=== PATIENT | male | born 1980 | race Native Hawaiian/Other Pacific Islander ===

== ENCOUNTER 2020-04-13 20:22 | Observation (INO) | payer MEDICAID, SELFPAY ==
--- NOTE | 2020-04-13 | XR_ITS ---
EXAMINATION: XR HAND, RIGHT CLINICAL INFORMATION: Right hand pain COMPARISON: None TECHNIQUE: 3 views of the right hand. FINDINGS: Osseous alignment is anatomic. No acute fracture is seen. Mild soft tissue swelling is suspected. XR/XR hand wrist RT IMPRESSION: No acute osseous findings.
[2020-04-13 20:36] VITALS: BP 133/89; BP 152/79; PULSE 86; PULSE 88; RESP 16; TEMP 37; O2SAT 95; O2SAT 97; BMI 24.9
--- NOTE | 2020-04-13 20:50 | PC.NURSE ---
at bedside for primary eval. Per MD to continue Solumedrol infusion @ 1000 mg/hr. Plan to obtain labs.
--- NOTE | 2020-04-13 20:51 | ED.GENADULT ---
HPI - General Adult General Chief complaint: General Medical Stated complaint: MS EXACERBATION Time Seen by Provider: 04/13/20 20:50 Source: patient and old records reviewed Mode of arrival: EMS Limitations: physical limitation History of Present Illness HPI narrative: Patient's history of multiple sclerosis for long time patient does not know what medication he is taking for MS at this time sent from [facility] ER for further workup and treatment at our hospital as his neurologist is at [place]. According to patient, patient woke up today with pain in the right arm patient denies any weakness says the pain goes from the right hand to the whole right side constant pain does not increase when he bends his neck no significant change in weakness. Provider at [facility] spoke to neurologist and started on Solu-Medrol 1000 mg for possible flare-up of MS. Also patient has suprapubic Mcghee catheter and the urine was slightly infected patient currently on Tecfidera 240 mg twice daily for MS per senior care records Onset (ago): hour(s) (10) Related Data Allergies Allergy/AdvReac Type Severity Reaction Status Date / Time bee pollen [BEE STINGS] Allergy Unknown SWELLING Unverified 11/30/19 15:18 bees, hornets, wasps Allergy Unknown anaphylaxis Uncoded 01/20/16 00:00 Review of Systems Review of Systems: Constitutional : No Weight loss, No Fever, No Chills ENT/Mouth : No sore throat, No Rhinorrhea Eyes: No Eye Pain, No Swelling Cardiovascular : No Chest Pain, no palpitations Respiratory : No Cough, No Sputum, no shortness of breath Gastrointestinal : no Nausea, No Vomiting, No Diarrhea, No abdominal Pain, no black stools Genitourinary : No Dysuria, No Urinary Frequency Musculoskeletal : No joint pain, No Myalgias, No Joint Swelling Skin : No Skin Lesions, No rash Neuro : ++ Weakness, No Numbness, No Dizziness, No Headache Psych : No Anxiety/Panic, No Depression Heme/Lymph: No Bruising, No Lymphadenopathy Endocrine : No Polyuria, No Polydipsia All other systems reviewed and are negative Yes all other systems are reviewed and are negative [facility] Past Medical History Medical History Hepatitis C Multiple sclerosis Neuromyopathy Suprapubic catheter UTI (urinary tract infection) Social History Social History Advance Directives: No Advance Directives Information Provided: No Physical Exam Vital Signs: Vital Signs: Last Vital Signs Temp 97.8 F 04/13/20 23:25 Pulse 110 H 04/13/20 23:45 Resp 18 04/13/20 23:25 BP 123/102 H 04/13/20 23:25 Pulse Ox 95 04/13/20 23:25 Body Mass Index 24.9 Const: Other: Slow to speak General: no acute distress and ill appearing Nutritional Appearance: malnourished and thin Orientation/consciousness: patient oriented x3 HENMT: Head: Yes normocephalic and Yes atraumatic Ears: hearing grossly normal bilaterally General nose exam: Normal external nose present Face and sinus: Yes normal facial exam Mouth: Normal oral and palatal mucosa present Eyes: General: appearance normal, both eyes and all related structures Neck: Neck: Yes normal visual inspection and Yes no meningeal signs Chest: Chest palpation & inspection: normal inspection of the chest and normal palpation of entire chest wall Resp: Effort & Inspection: normal respiratory effort Auscultation: clear to auscultation bilaterally, no crackles, no rales and no rhonchi Cardio: Jugular venous distension: no JVD Palpation: normal PMI Rate: regular rate Heart sounds: S1 normal heart sound present and S2 normal heart sound present Peripheral pulses: Peripheral pulses 2+ throughout GI: Inspection: Yes normal to inspection Palpation (GI): Soft to palpation and nontender : General: Yes no CVA tenderness Back/Spine/Pelvis: Back: no CVA tenderness Thoracic/Lumbar Spine: thoracic and lumbar spine normal to inspection Skin: General skin exam: no rashes or lesions noted Neuro: Other: Old Left-sided weakness, contracted posture able to am moves his right hand similar to in the past with residual weakness no increase in pain when he flexes his neck decreased reflexes bilateral General: patient oriented x3 and no meningeal signs Medical Decision Making MDM Narrative Medical decision making narrative: Patient has nonspecific pain in the right hand and right side of the body unlikely MS flare up also has the suprapubic chronic indwelling catheter with UTI which is likely chronic. Will give him Rocephin IV admit for Neuro input tomorrow patient already received dose of Solu-Medrol 1000 mg by [facility] Lab Data Lab results reviewed: Yes I reviewed the patient's lab results. Result diagrams: 04/13/20 21:59 04/13/20 21:59 Labs: Lab Results 04/13/20 04/13/20 04/13/20 Range/Units 21:39 21:49 21:59 WBC 8.4 (4.8-10.8) X10*3/uL RBC 4.42 L (4.60-5.80) X10*6/uL Hgb 13.0 L (14.0-18.0) g/dl Hct 39.5 L (42-52) % MCV 89.4 (80-98) fL MCH 29.4 (27.0-33.0) pg MCHC 32.9 (31.0-36.0) g/dl RDW 11.7 (11.0-16.0) % Plt Count 251 (160-400) X10*3/uL MPV 8.9 L (9.4-12.4) fL Immature Gran % (Auto) 0.2 (0.0-0.4) % Neut % (Auto) 76.4 H (45-73) % Lymph % (Auto) 18.2 L (20-40) % [place] % (Auto) 3.5 (2-11) % Eos % (Auto) 1.3 (0-4) % Baso % (Auto) 0.4 (0-2) % Lymph # (Auto) 1.5 (1.2-4.9) X10*3/uL [place] # (Auto) 0.3 (0.1-1.2) X10*3/uL Eos # (Auto) 0.1 (0.0-0.4) X10*3/uL Baso # (Auto) 0.0 (0.0-0.2) X10*3/uL Abs Immat Gran (auto) 0.02 (0.00-0.03) X10*3/uL Absolute Neuts (auto) 6.4 (2.0-8.3) X10*3/uL Absolute Nucleated RBC 0.000 (0.0-0.012) X10*3/uL Nucleated RBC % (auto) 0.0 (0.0-0.2) /100WBC Sodium (135-145) mmol/L Potassium (3.3-5.1) mmol/L Chloride (96-108) mmol/L Carbon Dioxide (22-29) mmol/L Anion Gap (12-20) BUN (9-16) mg/dL Creatinine (0.5-1.4) mg/dL Estim Creat Clear Calc Estimated GFR Random Glucose (60-115) mg/dL Lactic Acid 1.0 (0.5-2.0) mmol/L Calcium (8.4-10.2) mg/dL Total Bilirubin (0.0-1.0) mg/dL Direct Bilirubin (0.0-0.5) mg/dL AST (5-37) U/L ALT (0-40) U/L Alkaline Phosphatase (39-117) U/L C-Reactive Protein (< or = 0.50) mg/dL Total Protein (6.5-8.0) g/dL Albumin (3.5-5.0) g/dL Urine Color YELLOW Urine Appearance HAZY Urine pH 8.0 (5.0-8.0) Ur Specific [place] 1.015 (1.005-1.025) Urine Protein TRACE (NEG-TRACE) MG/DL Urine Glucose (UA) 100 H (NEG) MG/DL Urine Ketones NEG (NEG) MG/DL Urine Blood TRACE (NEG) Urine Nitrite POS H (NEG) Ur Leukocyte Esterase 1+ H (NEG) Urine RBC 1-4 (0) /HPF Urine WBC 15-29 H (0-4) /HPF Ur Squamous Epith Cells TRACE /LPF Amorphous Sediment 2+ /LPF Urine Bacteria 3+ /LPF Granular Casts 10-14 /LPF 04/13/20 Range/Units 21:59 WBC (4.8-10.8) X10*3/uL RBC (4.60-5.80) X10*6/uL Hgb (14.0-18.0) g/dl Hct (42-52) % MCV (80-98) fL MCH (27.0-33.0) pg MCHC (31.0-36.0) g/dl RDW (11.0-16.0) % Plt Count (160-400) X10*3/uL MPV (9.4-12.4) fL Immature Gran % (Auto) (0.0-0.4) % Neut % (Auto) (45-73) % Lymph % (Auto) (20-40) % [place] % (Auto) (2-11) % Eos % (Auto) (0-4) % Baso % (Auto) (0-2) % Lymph # (Auto) (1.2-4.9) X10*3/uL [place] # (Auto) (0.1-1.2) X10*3/uL Eos # (Auto) (0.0-0.4) X10*3/uL Baso # (Auto) (0.0-0.2) X10*3/uL Abs Immat Gran (auto) (0.00-0.03) X10*3/uL Absolute Neuts (auto) (2.0-8.3) X10*3/uL Absolute Nucleated RBC (0.0-0.012) X10*3/uL Nucleated RBC % (auto) (0.0-0.2) /100WBC Sodium 142 (135-145) mmol/L Potassium 3.9 (3.3-5.1) mmol/L Chloride 105 (96-108) mmol/L Carbon Dioxide 26 (22-29) mmol/L Anion Gap 15 (12-20) BUN 20 H (9-16) mg/dL Creatinine 0.63 (0.5-1.4) mg/dL Estim Creat Clear Calc 169.3 Estimated GFR > 60 Random Glucose 104 (60-115) mg/dL Lactic Acid (0.5-2.0) mmol/L Calcium 9.0 (8.4-10.2) mg/dL Total Bilirubin 0.5 (0.0-1.0) mg/dL Direct Bilirubin 0.3 (0.0-0.5) mg/dL AST 20 (5-37) U/L ALT 33 (0-40) U/L Alkaline Phosphatase 109 (39-117) U/L C-Reactive Protein 2.79 H (< or = 0.50) mg/dL Total Protein 7.0 (6.5-8.0) g/dL Albumin 4.2 (3.5-5.0) g/dL Urine Color Urine Appearance Urine pH (5.0-8.0) Ur Specific [place] (1.005-1.025) Urine Protein (NEG-TRACE) MG/DL Urine Glucose (UA) (NEG) MG/DL Urine Ketones (NEG) MG/DL Urine Blood (NEG) Urine Nitrite (NEG) Ur Leukocyte Esterase (NEG) Urine RBC (0) /HPF Urine WBC (0-4) /HPF Ur Squamous Epith Cells /LPF Amorphous Sediment /LPF Urine Bacteria /LPF Granular Casts /LPF Discharge Plan Discharge Clinical Impression: Musculoskeletal arm pain Qualifiers: Laterality: right Qualified Code(s): M79.601 - Pain in right arm UTI (urinary tract infection) Qualifiers: Urinary tract infection type: catheter-associated UTI Indwelling urinary catheter type: cystostomy catheter Encounter type: initial encounter Qualified Code(s): T83.510A - Infection and inflammatory reaction due to cystostomy catheter, initial encounter Patient Disposition: Admitted As Inpatient
[2020-04-13] MEDS: Morphine Sulfate 4 MG/ML CARTRIDGE IVPUSH (21:54)
[2020-04-13] MEDS: cefTRIAXone sodium 1 GM in 0.9 % Sodium Chloride 50 ML IV (21:55)
[2020-04-13 22:04] LABS: MANUAL DIFF FLAG NO
[2020-04-13 22:06] LABS: Basophils Percent Auto 0.4 % (0-2); Eosinophils Absolute Auto 0.1 X10*3/uL (0.0-0.4); Eosinophils Percent Auto 1.3 % (0-4); Hematocrit 39.5 % (42-52); Imm Gran Abs Auto 0.02 X10*3/uL (0.00-0.03); Imm Gran Pct Auto 0.2 % (0.0-0.4); Lymphocytes Absolute Auto 1.5 X10*3/uL (1.2-4.9); Lymphocytes Percent Auto 18.2 % (20-40); Mean Corpuscular HGB Conc 32.9 g/dl (31.0-36.0); Mean Corpuscular Hemoglobin 29.4 pg (27.0-33.0); Mean Corpuscular Volume 89.4 fL (80-98); Mean Platelet Volume 8.9 fL (9.4-12.4); Monocytes Absolute Auto 0.3 X10*3/uL (0.1-1.2); Monocytes Percent Auto 3.5 % (2-11); Neutrophils Absolute Auto 6.4 X10*3/uL (2.0-8.3); Neutrophils Percent Auto 76.4 % (45-73); Platelet Count 251 X10*3/uL (160-400); Red Blood Count 4.42 X10*6/uL (4.60-5.80); Red Cell Distribution Width 11.7 % (11.0-16.0); White Blood Count 8.4 X10*3/uL (4.8-10.8)
--- NOTE | 2020-04-13 22:08 | PC.NURSE ---
IV established, labs and UA obtained and sent. Mcghee bag changed by technical associate. Pt medicated per MAY with Morphine for 10/10 pain and Rocephin. VSS. Pt resting in bed at this time. Pt provided with blankets and pillows for comfort. Continue to monitor.
[2020-04-13 22:09] VITALS: BP 126/81; PULSE 95; RESP 16
[2020-04-13 22:09] LABS: Glucose Urine UA 100 MG/DL (NEG); Leukocyte Esterase Urine 1+ (NEG); Nitrite Urine POS (NEG); Specific Gravity - Urine 1.015 (1.005-1.025); UACC Culture Trigger YES; Urine Blood TRACE (NEG); Urine Ketones NEG (NEG); Urine Protein TRACE MG/DL (NEG-TRACE)
[2020-04-13 22:11] LABS: Appearance Urine HAZY; Color Urine YELLOW
--- NOTE | 2020-04-13 22:31 | PC.NURSE ---
This RN contacting [facility] regarding list of medications for pt. Per RN @ [facility], pt is taking Tecfidera delayed release, 250 mg BID for MS, aware. Awaiting med list. Plan to admit.
[2020-04-13 22:34] LABS: Bacteria Urine 3+ /LPF; Squamous Epithelial Cell Urine TRACE /LPF
[2020-04-13 22:35] LABS: Amorphous Sediment Urine 2+ /LPF
[2020-04-13 22:39] LABS: Alanine Aminotransferase 33 U/L (0-40); Albumin Level 4.2 g/dL (3.5-5.0); Alkaline Phosphatase 109 U/L (39-117); Anion Gap 15 (12-20); Aspartate Amino Transferase 20 U/L (5-37); Bilirubin Direct 0.3 mg/dL (0.0-0.5); Bilirubin Total 0.5 mg/dL (0.0-1.0); Blood Urea Nitrogen 20 mg/dL (9-16); C Reactive Protein 2.79 mg/dL (< or = 0.50); Carbon Dioxide 26 mmol/L (22-29); Chloride 105 mmol/L (96-108); Creatinine Clr Calc Pharmacy 169.3; Estimated Glomerular Filt Rate > 60; Glucose Random 104 mg/dL (60-115); Potassium 3.9 mmol/L (3.3-5.1); Sodium 142 mmol/L (135-145)
[2020-04-13 23:25] VITALS: BP 123/102; PULSE 108; RESP 18; TEMP 36.6; O2SAT 95
--- NOTE | 2020-04-13 23:37 | PC.NURSE ---
This RN contacting the facility again requested a list of medications. [facility] sent a face sheet, medical history and MOLST form. Medication list not included. Per facility, they will send it again. Awaiting med list.
--- NOTE | 2020-04-13 23:44 | P.HPHOSP_ITS ---
History of Present Illness Date of Service: 04/13/20 Chief Complaint: Right arm pain 39 y/o male with significant hx of MS who presented from [facility] due suspected MS flair . Patient was sent from [place] to [facility] due to a new onset RUE pain which started today. Upon arrival patient was started with Solumedrol IV for treatment of a suspected flair and given that his neurologist works at our facility, patient was later transferred to our hospital for further evaluation. On arrival patient presents with a BP of 123/102 mmHg, HR of 108, no evidence of fever, No leukocytosis, UA positive for UTI. Patient has a judge catheter. One dose of morphine was given and Rocephin per ED. Neurologist senior front end engineer was contacted per ED who states that does not thinks this is a presentation of a MS flair at this point given there is no evidence of acute weakness/numbness but only the pain in the RUE. Recommended the patient to be observed and he will follow up in the am. Decision for admission was given to Medicine. Patient seen and examined at the bedside, laying down in bed in no acute distress. ROS as above otherwise negative. On physical exam is evident left sided residual weakness and RUE residual mild weakness with good movement and strength of the hand. No pain is evident on examination. PMHX: MS on Tecfidera BID, Psychotic disorder, Insomnia, Constipation, Peripheral neuropathy, Hep C, Seizure PSx: none Toxic habits Opioid abuse Review of Systems Constitutional: Constitutional: Reports as per HPI Musculoskeletal: Musculoskeletal: Reports other (RUE pain) [facility] Medical History (Updated 04/14/20 @ 01:01 by Kevin Jacobson MD) Hepatitis C Multiple sclerosis Neuromyopathy Suprapubic catheter UTI (urinary tract infection) Functional capacity: bed bound Social History Advance Directives: No Advance Directives Information Provided: No Meds Allergies Allergy/AdvReac Type Severity Reaction Status Date / Time bee pollen [BEE STINGS] Allergy Unknown SWELLING Unverified 11/30/19 15:18 bees, hornets, wasps Allergy Unknown anaphylaxis Uncoded 01/20/16 00:00 Home Medications Medication Instructions Recorded Confirmed Type Milk of Magnesia 150 mg PO NEEDED 04/14/20 04/14/20 History Tecfidera 240 mg PO BID 04/14/20 04/14/20 History acetaminophen 350 mg PO NEEDED 04/14/20 04/14/20 History amantadine HCl 100 mg PO BID 04/14/20 04/14/20 History amitriptyline 100 mg PO BEDTIME 04/14/20 04/14/20 History ascorbic acid (vitamin C) 500 mg PO BID 04/14/20 04/14/20 History baclofen 40 mg PO TID 04/14/20 04/14/20 History bisacodyl 10 mg GA DAILY 04/14/20 04/14/20 History cetirizine 10 mg PO DAILY 04/14/20 04/14/20 History diazepam [Valium] 5 mg PO TID PRN 04/14/20 04/14/20 History docusate sodium [Colace] 100 mg PO BID 04/14/20 04/14/20 History gabapentin 1,200 mg PO TID 04/14/20 04/14/20 History melatonin 5 mg PO BEDTIME PRN 04/14/20 04/14/20 History methadone 10 mg PO TID 04/14/20 04/14/20 History metoprolol succinate 25 mg PO DAILY 04/14/20 04/14/20 History phenytoin sodium extended 100 mg PO TID 04/14/20 04/14/20 History senna 17.2 mg PO BID 04/14/20 04/14/20 History tizanidine 8 mg PO TID 04/14/20 04/14/20 History trazodone 25 mg PO NEEDED 04/14/20 04/14/20 History Physical Exam Vital Signs and Narrative: Vital Signs: Last Vital Signs Temp 97.8 F 04/13/20 23:25 Pulse 108 H 04/13/20 23:25 Resp 18 04/13/20 23:25 BP 123/102 H 04/13/20 23:25 Pulse Ox 95 04/13/20 23:25 Body Mass Index 24.9 Const: General: cooperative, comfortable and no acute distress Orientation/consciousness: oriented to person, oriented to place and oriented to time HENMT: Head: Yes normal to inspection Eyes: General: appearance normal, both eyes and all related structures Neck: Yes normal visual inspection Chest: Chest palpation & inspection: normal inspection of the chest Resp: Effort & Inspection: normal respiratory effort Auscultation: clear to auscultation bilaterally Cardio: Jugular venous distension: no JVD Rate: regular rate Rhythm: regular rhythm Heart sounds: S1 normal heart sound present and S2 normal heart sound present Skin: General skin exam: no rashes or lesions noted Neuro: General: oriented to person, oriented to place and oriented to time Cognition (Neuro): normal cognition Motor exam (neuro): Other motor observations present (Left sided residual weakness 0/5, RUE 3/5 strength. Sensation preserved. ) Extrem: General: Yes normal to inspection Results Labs CBC and Chem 7: 04/13/20 21:59 04/13/20 21:59 Labs: Laboratory Results - last 24 hr 04/13/20 04/13/20 04/13/20 21:39 21:49 21:59 MCV 89.4 MCH 29.4 MCHC 32.9 RDW 11.7 Plt Count 251 MPV 8.9 L Immature Gran % (Auto) 0.2 Neut % (Auto) 76.4 H Lymph % (Auto) 18.2 L [place] % (Auto) 3.5 Eos % (Auto) 1.3 Baso % (Auto) 0.4 Lymph # (Auto) 1.5 [place] # (Auto) 0.3 Eos # (Auto) 0.1 Baso # (Auto) 0.0 Abs Immat Gran (auto) 0.02 Absolute Neuts (auto) 6.4 Absolute Nucleated RBC 0.000 Nucleated RBC % (auto) 0.0 Anion Gap Estim Creat Clear Calc Estimated GFR Random Glucose Lactic Acid 1.0 Calcium Total Bilirubin Direct Bilirubin AST ALT Alkaline Phosphatase C-Reactive Protein Total Protein Albumin Urine Color YELLOW Urine Appearance HAZY Urine pH 8.0 Ur Specific [place] 1.015 Urine Protein TRACE Urine Glucose (UA) 100 H Urine Ketones NEG Urine Blood TRACE Urine Nitrite POS H Ur Leukocyte Esterase 1+ H Urine RBC 1-4 Urine WBC 15-29 H Ur Squamous Epith Cells TRACE Amorphous Sediment 2+ Urine Bacteria 3+ Granular Casts 10-14 04/13/20 21:59 MCV MCH MCHC RDW Plt Count MPV Immature Gran % (Auto) Neut % (Auto) Lymph % (Auto) [place] % (Auto) Eos % (Auto) Baso % (Auto) Lymph # (Auto) [place] # (Auto) Eos # (Auto) Baso # (Auto) Abs Immat Gran (auto) Absolute Neuts (auto) Absolute Nucleated RBC Nucleated RBC % (auto) Anion Gap 15 Estim Creat Clear Calc 169.3 Estimated GFR > 60 Random Glucose 104 Lactic Acid Calcium 9.0 Total Bilirubin 0.5 Direct Bilirubin 0.3 AST 20 ALT 33 Alkaline Phosphatase 109 C-Reactive Protein 2.79 H Total Protein 7.0 Albumin 4.2 Urine Color Urine Appearance Urine pH Ur Specific [place] Urine Protein Urine Glucose (UA) Urine Ketones Urine Blood Urine Nitrite Ur Leukocyte Esterase Urine RBC Urine WBC Ur Squamous Epith Cells Amorphous Sediment Urine Bacteria Granular Casts Assessment and Plan (1) UTI (urinary tract infection): Qualifiers: Encounter type: initial encounter Indwelling urinary catheter type: cystostomy catheter Urinary tract infection type: catheter-associated UTI Qualified Code(s): T83.510A - Infection and inflammatory reaction due to cystostomy catheter, initial encounter; N39.0 - Urinary tract infection, site not specified Status: Acute Continue with Rocephin 1 g Q 24 hrs for a total duration of 3 days Follow up Ucx Voiding trial when feasible (2) Multiple sclerosis: Status: Acute Hold off on Solumedrol for now as per Neurology senior front end engineer continue with home med as ordered for MS Neurology to Follow up in the am Observation for now (3) Psychotic disorder: Status: Acute continue with amitriptiline home dose continue with amantadine home dose (4) Insomnia: Status: Acute continue with melatonin home dose continue with trazodone home dose (5) Peripheral neuropathy: Status: Acute continue with gabapentin home dose continue with baclofen home dose for muscle spasms (6) Constipation: Status: Acute continue with colace home dose conitnue with senna home dose (7) Seizure: Status: Acute
[2020-04-13 23:45] VITALS: PULSE 110
[2020-04-13] MEDS: 0.9 % Sodium Chloride 1,000 ML 999 ML IVCONT (23:48)
[2020-04-14] VITALS (12 sets, daily range): BP systolic 104–133; BP diastolic 57–75; PULSE 99–125; RESP 14–22; TEMP 36.9–37.3; O2SAT 94–96
--- NOTE | 2020-04-14 | PC.NURSE ---
XRay at bedside.
--- NOTE | 2020-04-14 00:47 | PC.NURSE ---
Med Rec completed per paperwork faxed from facility.
--- NOTE | 2020-04-14 01:51 | PC.NURSE ---
Transfer orders processed.
--- NOTE | 2020-04-14 01:55 | PC.NURSE ---
This RN contacting MD regarding Covid swab. Pt was swabbed for Covid at [facility] today and was negative. This RN discussing with Manjeet is another Covid swab here was needed prior to transport to floor. Per MD, since pt was swabbed today, no need to reswab.
[2020-04-14] MEDS: Heparin Sodium,Porcine 5,000 UNIT/ML VIAL 5000 UNIT SUBCUT ×3 (02:19→18:20)
--- NOTE | 2020-04-14 02:24 | PC.NURSE ---
Pt medicated with Heparin per LYUDMILA. Pt clean/dry at this time, repositioned onto right side. Call hidalgo within reach, continue to monitor.
[2020-04-14 06:07] LABS: MANUAL DIFF FLAG NO
[2020-04-14 06:09] LABS: Basophils Percent Auto 0.2 % (0-2); Hematocrit 40.2 % (42-52); Hemoglobin 13.8 g/dl (14.0-18.0); Imm Gran Abs Auto 0.02 X10*3/uL (0.00-0.03); Imm Gran Pct Auto 0.4 % (0.0-0.4); Lymphocytes Percent Auto 18.3 % (20-40); Mean Corpuscular HGB Conc 34.3 g/dl (31.0-36.0); Mean Corpuscular Hemoglobin 30.2 pg (27.0-33.0); Mean Platelet Volume 8.9 fL (9.4-12.4); Monocytes Absolute Auto 0.1 X10*3/uL (0.1-1.2); Monocytes Percent Auto 0.9 % (2-11); Neutrophils Absolute Auto 4.6 X10*3/uL (2.0-8.3); Neutrophils Percent Auto 80.2 % (45-73); Platelet Count 262 X10*3/uL (160-400); Red Blood Count 4.57 X10*6/uL (4.60-5.80); Red Cell Distribution Width 11.5 % (11.0-16.0); White Blood Count 5.7 X10*3/uL (4.8-10.8)
[2020-04-14] MEDS: cefTRIAXone sodium 1 GM in 0.9 % Sodium Chloride 50 ML IV (06:21)
--- NOTE | 2020-04-14 06:21 | PC.NURSE ---
Pt medicated per MAR with Rocephin. Pt noted to be flushed, skin hot to the touch, pt states I am so hot. Rectal temp noted to be 99.2 Blankets removed per pt request. Continue to monitor.
[2020-04-14 06:31] LABS: Anion Gap 15 (12-20); Blood Urea Nitrogen 14 mg/dL (9-16); Calcium 8.6 mg/dL (8.4-10.2); Carbon Dioxide 21 mmol/L (22-29); Chloride 106 mmol/L (96-108); Estimated Glomerular Filt Rate > 60; Glucose Random 154 mg/dL (60-115); Potassium 3.9 mmol/L (3.3-5.1); Sodium 138 mmol/L (135-145)
[2020-04-14] MEDS: Docusate Sodium 100 MG CAPSULE PO ×2 (09:24→21:06)
[2020-04-14] MEDS: Baclofen 20 MG TABLET 40 MG PO ×3 (09:24→21:06)
[2020-04-14] MEDS: 0.9 % Sodium Chloride Flush 3 ML SYRINGE IVFLUSH ×2 (09:24→16:33)
[2020-04-14] MEDS: amantadine HCL 100 MG CAPSULE PO ×2 (09:24→21:07)
[2020-04-14] MEDS: bisacodyL 10 MG SUPP.RECT PR (09:24)
[2020-04-14] MEDS: Ascorbic Acid 500 MG TABLET PO ×2 (09:24→21:07)
[2020-04-14] MEDS: methADONE HCl 10 MG TABLET PO ×3 (09:24→21:07)
[2020-04-14] MEDS: Gabapentin 600 MG TABLET 1200 MG PO ×3 (09:24→21:07)
[2020-04-14] MEDS: Loratadine 10 MG TABLET PO (09:24)
--- NOTE | 2020-04-14 09:52 | PC.NURSE ---
Patient awake and alert. Skin flush, warm, dry. resp even and non labored. speaking in slow, full, clear sentences. pt seen by neurologist. Pt incontinent of large amount of hard, dry stool. Care provided and linens changed, pt repositioned to [facility] side. Suprapubic catheter producing cloudy yellow urine. ST via tele. Awaiting room assignment
--- NOTE | 2020-04-14 09:53 | PM.NEUROCN ---
History of Present Illness Data of Consult Service Date: 04/14/20 Primary Care Provider: Toñito Denson MD 39 years old man with chronic it was progressive multiple sclerosis, patient of Dr. Landrum, treated with multiple medicines for spasticity and pain and an immunomodulating agent, Tecfidera. He was a resident of an institution and was brought to [facility] with new or worsening right-sided stiffness. It was not clear if he had any new hemiparesis. As that hospital did not have any Neurology, he was transferred to this hospital. After discussion with emergency room physician in [facility] a dose of Solu-Medrol was given for possible MS exacerbation. When I saw him he was being fed by a nurse. Review of Systems Review of Systems: No recent cold or PMFSH Past Medical History Medical History (Updated 04/14/20 @ 09:57 by Amie Bustillos MD) Hepatitis C Multiple sclerosis Neuromyopathy Suprapubic catheter UTI (urinary tract infection) Functional capacity: bed bound Social History Social History Advance Directives: No Advance Directives Information Provided: No Meds Allergies Allergy/AdvReac Type Severity Reaction Status Date / Time bee pollen [BEE STINGS] Allergy Unknown SWELLING Unverified 11/30/19 15:18 bees, hornets, wasps Allergy Unknown anaphylaxis Uncoded 01/20/16 00:00 Home Medications Medication Instructions Recorded Confirmed Type Milk of Magnesia 150 mg PO NEEDED 04/14/20 04/14/20 History Tecfidera 240 mg PO BID 04/14/20 04/14/20 History acetaminophen 350 mg PO NEEDED 04/14/20 04/14/20 History amantadine HCl 100 mg PO BID 04/14/20 04/14/20 History amitriptyline 100 mg PO BEDTIME 04/14/20 04/14/20 History ascorbic acid (vitamin C) 500 mg PO BID 04/14/20 04/14/20 History baclofen 40 mg PO TID 04/14/20 04/14/20 History bisacodyl 10 mg ND DAILY 04/14/20 04/14/20 History cetirizine 10 mg PO DAILY 04/14/20 04/14/20 History diazepam [Valium] 5 mg PO TID PRN 04/14/20 04/14/20 History docusate sodium [Colace] 100 mg PO BID 04/14/20 04/14/20 History gabapentin 1,200 mg PO TID 04/14/20 04/14/20 History melatonin 5 mg PO BEDTIME PRN 04/14/20 04/14/20 History methadone 10 mg PO TID 04/14/20 04/14/20 History metoprolol succinate 25 mg PO DAILY 04/14/20 04/14/20 History phenytoin sodium extended 100 mg PO TID 04/14/20 04/14/20 History senna 17.2 mg PO BID 04/14/20 04/14/20 History tizanidine 8 mg PO TID 04/14/20 04/14/20 History trazodone 25 mg PO NEEDED 04/14/20 04/14/20 History Physical Exam Vital Signs: Vital Signs: Last Vital Signs Temp 98.8 F 04/14/20 09:50 Pulse 111 H 04/14/20 09:50 Resp 20 04/14/20 09:50 BP 124/75 04/14/20 09:50 Pulse Ox 94 04/14/20 09:50 Body Mass Index 24.9 He was alert and awake smiling made appropriate remarks following simple commands and answering questions. There was moderate amount of bilateral arm and body ataxia and significant flexion deformity of arms and legs. Left plantar was extensor right was equivocal. Face seems symmetrical. Exam was limited. Results Labs CBC & Chem 7: 04/14/20 06:01 04/14/20 06:01 Labs: Short CBC 04/13/20 04/14/20 Range/Units 21:59 06:01 WBC 8.4 5.7 (4.8-10.8) X10*3/uL Hgb 13.0 L 13.8 L (14.0-18.0) g/dl Hct 39.5 L 40.2 L (42-52) % Plt Count 251 262 (160-400) X10*3/uL BMP 04/13/20 04/14/20 21:59 06:01 Sodium 142 138 Potassium 3.9 3.9 Chloride 105 106 Carbon Dioxide 26 21 L BUN 20 H 14 Creatinine 0.63 0.62 Calcium 9.0 8.6 Liver Function 01/30/21 Range/Units 21:59 Total Bilirubin 0.5 (0.0-1.0) mg/dL Direct Bilirubin 0.3 (0.0-0.5) mg/dL AST 20 (5-37) U/L ALT 33 (0-40) U/L Alkaline Phosphatase 109 (39-117) U/L Albumin 4.2 (3.5-5.0) g/dL Urine 04/13/20 Range/Units 21:49 Urine Color YELLOW Urine Appearance HAZY Urine pH 8.0 (5.0-8.0) Ur Specific [place] 1.015 (1.005-1.025) Urine Protein TRACE (NEG-TRACE) MG/DL Urine Glucose (UA) 100 H (NEG) MG/DL Assessment and Plan (1) Multiple sclerosis: Status: Acute 39 years old man with severe multiple sclerosis. His MRI in the past as revealed extensive white matter lesions. MS has significantly impacted his physical ability and resulted in quite significant spasticity and flexion deformity of arms or legs, which subsequently resulted in pain. He was already taking multiple medications for spasticity and pain. Immuno modulating agent at this stage of MS usually make no difference. I would suggest giving him 1 more dose of Solu-Medrol and then transfer back to his place of residence. As far as spasticity in deformity is concerned, intrathecal baclofen pump treatment might be a consideration and for that he could be evaluated as an outpatient.
--- NOTE | 2020-04-14 11:29 | MHC.CM.PN ---
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 His mother is his HCP and he states he has all the forms at [facility]. He is dependent with most care needs d/t MS - he is A&O x4 with slow speech but very pleasant and conversant. Pt will return to [facility] via BLS transport after neuro eval. YASMEEN read to pt and copy left at bedside.
[2020-04-14] MEDS: Phenytoin Sodium Extended 100 MG CAPSULE PO ×3 (11:42→21:06)
[2020-04-14] MEDS: Sennosides 8.6 MG TABLET 17.2 MG PO ×2 (11:43→21:06)
[2020-04-14] MEDS: Metoprolol Succinate ER 25 MG TAB.ER.24H PO (11:44)
[2020-04-14] MEDS: TiZANidine HCL 4 MG TABLET 8 MG PO ×3 (11:44→21:07)
[2020-04-14] MEDS: methylPREDNISolone Sod Succ 1,000 MG in 0.9 % Sodium Chloride 50 ML 66 MG IV (12:52)
--- NOTE | 2020-04-14 15:30 | P.PNIM_ITS ---
Subjective Subjective Date of Service: 04/21/20 Interval History: MS flare question. UTI Review of Systems Says that arm right-sided stiffness improving Denies any chest pain or shortness off abdominal pain or cough or phlegm. Physical Exam Vital Signs: Vital Signs: Last Vital Signs Temp 98.5 F 04/14/20 14:13 Pulse 114 H 04/14/20 14:13 Resp 18 04/14/20 14:13 BP 113/60 04/14/20 14:13 Pulse Ox 95 04/14/20 14:13 Body Mass Index 24.9 Physical exam: Cvs: rrr, [id number] , no murmur res: clear to auscultation ,no rhonchii or wheezing abd: no rebound or guarding ,nt, bs present. ext pulses present , no cyanosis neuro: There was moderate amount of bilateral arm and body ataxia and significant flexion deformity of arms and legs. Left plantar was extensor right was equivocal. Face seems symmetrical. Objective Data Current Medications Generic Name Dose Route Start Last Admin Trade Name Freq PRN Reason Stop Dose Admin Amantadine HCl 100 mg 04/14/20 09:00 04/14/20 09:24 Amantadine Hcl 100 Mg Capsule PO 100 mg BID LARA Administration Amitriptyline HCl 100 mg 04/14/20 21:00 Amitriptyline Hcl 50 Mg Tablet PO BEDTIME LARA Ascorbic Acid 500 mg 04/14/20 09:00 04/14/20 09:24 Ascorbic Acid 500 Mg Tablet PO 500 mg BID LARA Administration Baclofen 40 mg 04/14/20 09:00 04/14/20 09:24 Baclofen 20 Mg Tablet PO 40 mg TID LARA Administration Bisacodyl 10 mg 04/14/20 09:00 04/14/20 09:24 Bisacodyl 10 Mg Supp.Rect IN 10 mg DAILY LARA Administration Diazepam 5 mg 04/14/20 08:49 Diazepam 5 Mg Tablet PO TID PRN Anxiety Docusate Sodium 100 mg 04/14/20 09:00 04/14/20 09:24 Docusate Sodium 100 Mg Capsule PO 100 mg BID LARA Administration Gabapentin 1,200 mg 04/14/20 09:00 04/14/20 09:24 Gabapentin 600 Mg Tablet PO 1,200 mg TID LARA Administration Heparin Sodium (Porcine) 5,000 unit 04/14/20 01:50 04/14/20 11:44 Heparin Sodium,Porcine 5,000 Unit/Ml Vial SUBCUT 5,000 unit Q8H LARA Administration Ceftriaxone Sodium 1 gm/ 50 mls @ 100 mls/hr 04/14/20 06:00 04/14/20 06:48 Sodium Chloride IV Infused Q24H LARA Infusion Loratadine 10 mg 04/14/20 09:00 04/14/20 09:24 Loratadine 10 Mg Tablet PO 10 mg DAILY LARA Administration Methadone HCl 10 mg 04/14/20 09:00 04/14/20 09:24 Methadone Hcl 10 Mg Tablet PO 10 mg TID [facility] Administration Metoprolol Succinate 25 mg 04/14/20 09:00 04/14/20 11:44 Metoprolol Succinate Er 25 Mg Tab.Er.24h PO 25 mg DAILY [facility] Administration Protocol Non-Formulary Medication 240 mg 04/14/20 09:00 Tecfidera PO BID [facility] Phenytoin Sodium 100 mg 04/14/20 09:00 04/14/20 11:42 Phenytoin Sodium Extended 100 Mg Capsule PO 100 mg TID [facility] Administration Senna 17.2 mg 04/14/20 09:00 04/14/20 11:43 Sennosides 8.6 Mg Tablet PO 17.2 mg BID [facility] Administration Sodium Chloride 3 ml 04/14/20 08:00 04/14/20 09:24 0.9 % Sodium Chloride Flush 3 Ml Syringe IVFLUSH 3 ml QSHIFT [facility] Administration Tizanidine HCl 8 mg 04/14/20 09:00 04/14/20 11:44 Tizanidine Hcl 4 Mg Tablet PO 8 mg TID [facility] Administration Trazodone HCl 25 mg 04/14/20 01:35 Trazodone Hcl 25 Mg Halftab PO BEDTIME PRN insomnia Labs CBC & Chem 7: 04/14/20 06:01 04/14/20 06:01 Microbiology Microbiology Results: Microbiology 04/13/20 Unknown Urine clean catch - Clean Catch Midstream Urine Culture - Preliminary Culture too young to evaluate. Assessment and Plan (1) Multiple sclerosis: Status: Acute (2) UTI (urinary tract infection): Status: Acute Assessment and Plan: 1. Probable MS stenosis flare: Started the patient on IV Solu-Medrol Arm pain and spasticity improving Neuro evaluation 2: Uti: Continue ceftriaxone day 2 Urine culture pending
[2020-04-14 20:15] LABS: COVID-19 Test Negative (Negative)
--- NOTE | 2020-04-14 20:55 | PC.NURSE ---
mother called for an update, asking if pt had an MRI? mother was told by [facility] that he was being [place] [facility] [place] consult and MRI. ER MD Jordan was asked about MRI, he reports Pt didn't have one, he doesn't need one. pt had oatmeal, pudding and juice, fed by pct.
[2020-04-14] MEDS: Amitriptyline HCl 50 MG TABLET 100 MG PO (21:08)
[2020-04-14] MEDS: diazePAM 5 MG TABLET PO (23:18)
[2020-04-15 01:51] VITALS: BP 101/54; PULSE 78; RESP 12; O2SAT 95
[2020-04-15] MEDS: Heparin Sodium,Porcine 5,000 UNIT/ML VIAL 5000 UNIT SUBCUT ×2 (01:53→08:55)
[2020-04-15] MEDS: 0.9 % Sodium Chloride Flush 3 ML SYRINGE IVFLUSH ×2 (01:53→08:55)
--- NOTE | 2020-04-15 02:42 | PC.NURSE ---
PT MOVED INTO A HOSPITAL BED FOR COMFORT. LINEN AND GOWN CHANGED. SMALL AMOUNT OF SOFT BROWN STOOL CLEANED. PT HAS EXTREMITY TREMORS, NORMAL AT BASELINE. P.O. VALIUM HELPED WITH COMPLAINT OF RIGHT SIDED BODY PAIN, GIVEN INITIALLY FOR ANXIETY AND TROUBLE SLEEPING.
[2020-04-15 04:22] VITALS: BP 99/58; PULSE 91; RESP 12; O2SAT 96
[2020-04-15] MEDS: cefTRIAXone sodium 1 GM in 0.9 % Sodium Chloride 50 ML IV (05:56)
[2020-04-15] MEDS: Gabapentin 600 MG TABLET 1200 MG PO (08:17)
[2020-04-15] MEDS: Ascorbic Acid 500 MG TABLET PO (08:18)
[2020-04-15] MEDS: Baclofen 20 MG TABLET 40 MG PO (08:18)
[2020-04-15] MEDS: methADONE HCl 10 MG TABLET PO (08:18)
[2020-04-15] MEDS: TiZANidine HCL 4 MG TABLET 8 MG PO (08:18)
[2020-04-15] MEDS: Sennosides 8.6 MG TABLET 17.2 MG PO (08:18)
[2020-04-15] MEDS: amantadine HCL 100 MG CAPSULE PO (08:18)
[2020-04-15] MEDS: Phenytoin Sodium Extended 100 MG CAPSULE PO (08:18)
[2020-04-15] MEDS: Docusate Sodium 100 MG CAPSULE PO (08:19)
[2020-04-15] MEDS: bisacodyL 10 MG SUPP.RECT PR (08:19)
[2020-04-15] MEDS: Loratadine 10 MG TABLET PO (08:55)
[2020-04-15 08:56] VITALS: BP 112/55; PULSE 98
[2020-04-15] MEDS: Metoprolol Succinate ER 25 MG TAB.ER.24H PO (08:56)
--- NOTE | 2020-04-15 11:04 | PC.NURSE ---
plan [facility] today
--- NOTE | 2020-04-15 11:04 | PC.NURSE ---
pt is total care, needs to be fed, did well with breakfast, and offer liquids every couple of hours.
--- NOTE | 2020-04-15 11:14 | PC.NURSE ---
pt in non ambulatory at baseline repositioned every 2 hours
--- NOTE | 2020-04-15 11:47 | P.DS_ITS ---
DS: Providers Provider Date of Service: 04/15/20 Date of admission: 04/14/20 01:50 Primary care physician: Toñito Denson MD Consults: 04/14/20 01:50 Consult to Neurology Routine Consulting Provider: [facility] Reason for consultation: suspected MS flair Has provider been notified: Yes DS: Diagnosis Discharge Diagnosis (1) Multiple sclerosis: Status: Acute (2) UTI (urinary tract infection): Status: Acute DS: Medications Discharge Medications Home Medications: Home Medications Medication Instructions Recorded Confirmed Milk of Magnesia 150 mg PO NEEDED 04/14/20 04/14/20 Tecfidera 240 mg PO BID 04/14/20 04/14/20 acetaminophen 350 mg PO NEEDED 04/14/20 04/14/20 amantadine HCl 100 mg PO BID 04/14/20 04/14/20 amitriptyline 100 mg PO BEDTIME 04/14/20 04/14/20 ascorbic acid (vitamin C) 500 mg PO BID 04/14/20 04/14/20 baclofen 40 mg PO TID 04/14/20 04/14/20 bisacodyl 10 mg MI DAILY 04/14/20 04/14/20 cetirizine 10 mg PO DAILY 04/14/20 04/14/20 diazepam [Valium] 5 mg PO TID PRN 04/14/20 04/14/20 docusate sodium [Colace] 100 mg PO BID 04/14/20 04/14/20 gabapentin 1,200 mg PO TID 04/14/20 04/14/20 melatonin 5 mg PO BEDTIME PRN 04/14/20 04/14/20 methadone 10 mg PO TID 04/14/20 04/14/20 metoprolol succinate 25 mg PO DAILY 04/14/20 04/14/20 phenytoin sodium extended 100 mg PO TID 04/14/20 04/14/20 senna 17.2 mg PO BID 04/14/20 04/14/20 tizanidine 8 mg PO TID 04/14/20 04/14/20 trazodone 25 mg PO NEEDED 04/14/20 04/14/20 Previous Rx's Medication Instructions Recorded cefuroxime axetil 250 mg PO BID #10 tab 04/15/20 DS: Summary Hospital Course Hospital Course: Patient was admitted for MS flare. He was seen by Neurology who recommended completing dose 2 and 3 of solumderol. he was also treated for UTI, will complete 5 more days of po ceftin. symptoms have improved and he will be discharged back to snf. Time Spent with Patient Time attestation: Total time spent providing and/or coordinating discharge services: Discharge coordination time: Greater than 30 minutes Physical Exam Vital Signs: Vital Signs: Last Vital Signs Temp 98.6 F 04/14/20 23:13 Pulse 98 04/15/20 08:56 Resp 12 04/15/20 04:22 BP 112/55 L 04/15/20 08:56 Pulse Ox 96 04/15/20 04:22 Body Mass Index 24.9 General: AO X 3, no acute distress Resp: CTA bilateral CVS: S1,S2,RRR GI: soft, non tender, non distended Psych: appropriate affect DS: Data Data Completed and Pending Labs on day of discharge: Laboratory Tests 04/13/20 04/13/20 04/13/20 21:39 21:49 21:59 WBC 8.4 RBC 4.42 L Hgb 13.0 L Hct 39.5 L MCV 89.4 MCH 29.4 MCHC 32.9 RDW 11.7 Plt Count 251 MPV 8.9 L Immature Gran % (Auto) 0.2 Neut % (Auto) 76.4 H Lymph % (Auto) 18.2 L Payette % (Auto) 3.5 Eos % (Auto) 1.3 Baso % (Auto) 0.4 Lymph # (Auto) 1.5 Payette # (Auto) 0.3 Eos # (Auto) 0.1 Baso # (Auto) 0.0 Abs Immat Gran (auto) 0.02 Absolute Neuts (auto) 6.4 Absolute Nucleated RBC 0.000 Nucleated RBC % (auto) 0.0 Sodium Potassium Chloride Carbon Dioxide Anion Gap BUN Creatinine Estim Creat Clear Calc Estimated GFR Random Glucose Lactic Acid 1.0 Calcium Total Bilirubin Direct Bilirubin AST ALT Alkaline Phosphatase C-Reactive Protein Total Protein Albumin Urine Color YELLOW Urine Appearance HAZY Urine pH 8.0 Ur Specific Marina 1.015 Urine Protein TRACE Urine Glucose (UA) 100 H Urine Ketones NEG Urine Blood TRACE Urine Nitrite POS H Ur Leukocyte Esterase 1+ H Urine RBC 1-4 Urine WBC 15-29 H Ur Squamous Epith Cells TRACE Amorphous Sediment 2+ Urine Bacteria 3+ Granular Casts 10-14 COVID-19 ([facility]) COVID-19 Clin Com 04/13/20 04/14/20 04/14/20 21:59 06:01 06:01 WBC 5.7 RBC 4.57 L Hgb 13.8 L Hct 40.2 L MCV 88.0 MCH 30.2 MCHC 34.3 RDW 11.5 Plt Count 262 MPV 8.9 L Immature Gran % (Auto) 0.4 Neut % (Auto) 80.2 H Lymph % (Auto) 18.3 L Payette % (Auto) 0.9 L Eos % (Auto) 0.0 Baso % (Auto) 0.2 Lymph # (Auto) 1.0 L Payette # (Auto) 0.1 Eos # (Auto) 0.0 Baso # (Auto) 0.0 Abs Immat Gran (auto) 0.02 Absolute Neuts (auto) 4.6 Absolute Nucleated RBC 0.000 Nucleated RBC % (auto) 0.0 Sodium 142 138 Potassium 3.9 3.9 Chloride 105 106 Carbon Dioxide 26 21 L Anion Gap 15 15 BUN 20 H 14 Creatinine 0.63 0.62 Estim Creat Clear Calc 169.3 172.0 Estimated GFR > 60 > 60 Random Glucose 104 154 H D Lactic Acid Calcium 9.0 8.6 Total Bilirubin 0.5 Direct Bilirubin 0.3 AST 20 ALT 33 Alkaline Phosphatase 109 C-Reactive Protein 2.79 H Total Protein 7.0 Albumin 4.2 Urine Color Urine Appearance Urine pH Ur Specific Marina Urine Protein Urine Glucose (UA) Urine Ketones Urine Blood Urine Nitrite Ur Leukocyte Esterase Urine RBC Urine WBC Ur Squamous Epith Cells Amorphous Sediment Urine Bacteria Granular Casts COVID-19 ([facility]) COVID-19 Clin Com 04/14/20 19:55 WBC RBC Hgb Hct MCV MCH MCHC RDW Plt Count MPV Immature Gran % (Auto) Neut % (Auto) Lymph % (Auto) Payette % (Auto) Eos % (Auto) Baso % (Auto) Lymph # (Auto) Payette # (Auto) Eos # (Auto) Baso # (Auto) Abs Immat Gran (auto) Absolute Neuts (auto) Absolute Nucleated RBC Nucleated RBC % (auto) Sodium Potassium Chloride Carbon Dioxide Anion Gap BUN Creatinine Estim Creat Clear Calc Estimated GFR Random Glucose Lactic Acid Calcium Total Bilirubin Direct Bilirubin AST ALT Alkaline Phosphatase C-Reactive Protein Total Protein Albumin Urine Color Urine Appearance Urine pH Ur Specific Marina Urine Protein Urine Glucose (UA) Urine Ketones Urine Blood Urine Nitrite Ur Leukocyte Esterase Urine RBC Urine WBC Ur Squamous Epith Cells Amorphous Sediment Urine Bacteria Granular Casts COVID-19 ([facility]) Negative COVID-19 Clin Com See Note Preliminary micro results at discharge 04/13/20 Unknown Urine Culture - Preliminary Urine clean catch - Clean Catch Midstream Culture in progress. 04/13/20 21:39 Blood Culture - Preliminary Blood - Venous No growth after 24 hours. 04/13/20 21:39 Blood Culture - Preliminary Blood - Venous No growth after 24 hours. Discharge Plan Discharge Patient Disposition: [facility] Referrals: Toñito Denson MD [Primary Care Provider] - Discharge Medications: New cefuroxime axetil 250 mg tablet 250 mg PO BID Qty: 10 RF: 0 Continued acetaminophen 325 mg Tablet 350 mg PO NEEDED RF: 0 gabapentin 600 mg Tablet 1,200 mg PO TID RF: 0 trazodone 50 mg Tablet 25 mg PO NEEDED RF: 0 cetirizine 10 mg Tablet 10 mg PO DAILY RF: 0 methadone 10 mg Tablet 10 mg PO TID RF: 0 phenytoin sodium extended 100 mg Capsule 100 mg PO TID RF: 0 amantadine HCl 100 mg Capsule 100 mg PO BID RF: 0 baclofen 20 mg Tablet 40 mg PO TID RF: 0 ascorbic acid (vitamin C) 250 mg Tablet 500 mg PO BID RF: 0 bisacodyl 10 mg Suppository 10 mg MI DAILY RF: 0 docusate sodium [Colace] 100 mg Capsule 100 mg PO BID RF: 0 amitriptyline 100 mg Tablet 100 mg PO BEDTIME RF: 0 diazepam [Valium] 5 mg Tablet 5 mg PO TID PRN (Reason: Anxiety) RF: 0 senna 8.6 mg Capsule 17.2 mg PO BID RF: 0 tizanidine 4 mg Capsule 8 mg PO TID RF: 0 melatonin 5 mg Tablet 5 mg PO BEDTIME PRN (Reason: Insomnia) RF: 0 metoprolol succinate 25 mg Capsule,Sprinkle,Er 24hr 25 mg PO DAILY RF: 0 Milk of Magnesia 400 mg/5 ml suspension 150 mg PO NEEDED RF: 0 Tecfidera 240 mg PO BID RF: 0 Discharge Orders: Discharge Order (Routine); Ordered 04/15/20 Ordered By: Nikolay Chavez Activity on Discharge: As tolerated Care Plan Goals: recovery Health Concerns: uti, ms Plan of Treatment: 5 more days ceftin, follow up neuro, consider pain management follow up
--- NOTE | 2020-04-15 12:57 | MHC.CM.PN ---
Addendum entered by Ann Deluna 04/15/20 13:14: PT IS SET UP TO DISCHARGE BACK TO [facility] WHERE IS A HAND PATCHER CARE RESIDENT, TODAY AT 1330 HOURS VIA [facility]. PATIENT, FACILITY AND ED NURSE AWARE. DC SUMMARY SENT VIA [employer] Original Note: Pt cleared to DC back to [facility] today where he is a LTC resident. CM has left three messages for facility/admissions liaison, currently awaiting response to schedule a DC time.
[2020-04-15] MEDS: methylPREDNISolone Sod Succ 1,000 MG in 0.9 % Sodium Chloride 50 ML 66 MG IV (13:14)
== END 2020-04-15 14:48 | disposition skilled nursing facility (03) ==
LOC: HO.ED 23:45 → HO.EDOVER 04-14 02:10
PROVIDERS: Admitting Provider Internal Medicine; Emergency Provider Internal Medicine; PCP Family Medicine; Visit Provider Internal Medicine
DX: T83.510A Infection and inflammatory reaction due to cystostomy catheter, initial encounter (principal); N39.0 Urinary tract infection, site not specified; G35 Multiple sclerosis; F29 Unspecified psychosis not due to a substance or known physiological condition; G47.00 Insomnia, unspecified; G62.9 Polyneuropathy, unspecified; K59.00 Constipation, unspecified; R56.9 Unspecified convulsions; M79.641 Pain in right hand; Z20.822 Contact with and (suspected) exposure to COVID-19; Z91.030 Bee allergy status; Z79.899 Other long term (current) drug therapy; Z43.5 Encounter for attention to cystostomy
CPT/HCPCS: 36415; 73110; 73130; 80048; 80076; 81001; 81003; 83605; 85025; 86140; 87040; 87086; 87088; 87186; 87635; 96361; 96365; 96366; 96375; 96376; 99219; 99284; 99285; J0696; J2270; J2930

== ENCOUNTER 2020-07-07 07:56 | Emergency (ER) | payer MEDICAID, SELFPAY ==
[2020-07-07 08:04] VITALS: BP 130/87; PULSE 84; RESP 17; TEMP 36.6; O2SAT 96; BMI 26.6
--- NOTE | 2020-07-07 08:08 | ED.GENADULT ---
HPI - General Adult General Chief complaint: General Medical Stated complaint: Catheter complication Time Seen by Provider: 07/07/20 08:08 Source: patient, EMS and other (Caregiver) Mode of arrival: EMS Limitations: no limitations History of Present Illness HPI narrative: 39-year-old male came in for evaluation of dislodgement of suprapubic urinary catheter. This is a 39-year-old male with history of multiple sclerosis patient as a result is mostly bed ridden (cannot move from chest down to her legs) The suprapubic catheter was dislodged this morning (was placed about 2-3 years ago). Related Data Home Medications Medication Instructions Recorded Confirmed Milk of Magnesia 150 mg PO NEEDED 04/14/20 04/14/20 Tecfidera 240 mg PO BID 04/14/20 04/14/20 acetaminophen 350 mg PO NEEDED 04/14/20 04/14/20 amantadine HCl 100 mg PO BID 04/14/20 04/14/20 amitriptyline 100 mg PO BEDTIME 04/14/20 04/14/20 ascorbic acid (vitamin C) 500 mg PO BID 04/14/20 04/14/20 baclofen 40 mg PO TID 04/14/20 04/14/20 bisacodyl 10 mg ID DAILY 04/14/20 04/14/20 cetirizine 10 mg PO DAILY 04/14/20 04/14/20 diazepam [Valium] 5 mg PO TID PRN 04/14/20 04/14/20 docusate sodium [Colace] 100 mg PO BID 04/14/20 04/14/20 gabapentin 1,200 mg PO TID 04/14/20 04/14/20 melatonin 5 mg PO BEDTIME PRN 04/14/20 04/14/20 methadone 10 mg PO TID 04/14/20 04/14/20 metoprolol succinate 25 mg PO DAILY 04/14/20 04/14/20 phenytoin sodium extended 100 mg PO TID 04/14/20 04/14/20 senna 17.2 mg PO BID 04/14/20 04/14/20 tizanidine 8 mg PO TID 04/14/20 04/14/20 trazodone 25 mg PO NEEDED 04/14/20 04/14/20 Previous Rx's Medication Instructions Recorded cefuroxime axetil 250 mg PO BID #10 tab 04/15/20 cefuroxime axetil 500 mg PO BID #14 tab 07/07/20 Allergies Allergy/AdvReac Type Severity Reaction Status Date / Time bee pollen [BEE STINGS] Allergy Unknown SWELLING Unverified 11/30/19 15:18 bees, hornets, wasps Allergy Unknown anaphylaxis Uncoded 01/20/16 00:00 Review of Systems Review of Systems: All other systems are reviewed and are negative Constitutional: Reports as per HPI and Reports no additional constitutional complaints Eyes: Reports as per HPI and Reports no additional eye complaints Reports system reviewed and no additional complaints, except as documented Cardiovascular: Reports as per HPI and Reports no additional cardiovascular complaints Respiratory: Reports as per HPI and Reports no additional respiratory complaints Gastrointestinal: Reports as per HPI and Reports no additional gastrointestinal complaints Genitourinary: Reports no additional female genitourinary complaints Musculoskeletal: Reports no additional musculoskeletal complaints Skin/Breast: Reports system reviewed and no additional complaints, except as docu Psychiatric: Reports no additional psychiatric complaints Endocrine: Reports no additional endocrine complaints Hematologic/Lymphatic: Reports no additional hematologic/lymphatic complaints Allergic/Immunologic: Reports no additional allergic/immunologic complaints Reports system reviewed and no additional complaints, except as documented and Reports Abnormal speech present [facility] Past Medical History Medical History Hepatitis C Multiple sclerosis Neuromyopathy Suprapubic catheter UTI (urinary tract infection) Social History Social History Advance Directives: No Advance Directives Information Provided: No service: No Current occupational status: disabled Physical Exam Vital Signs: Vital Signs: Last Vital Signs Temp 98 F 07/07/20 08:04 Pulse 84 07/07/20 08:04 Resp 17 07/07/20 08:04 BP 130/87 07/07/20 08:04 Pulse Ox 96 07/07/20 08:04 Body Mass Index 26.6 Vital signs have been reviewed as appeared to be correct. Blood pressure normal. Heart rate normal. Respiration rate normal. Temperature normal. Oxygen saturation normal. Appearance: Alert. Oriented X3. No acute distress. Head: Normal external exam. Normocephalic. Atraumatic. No Roy signs noted. No raccoon eyes noted Eyes: PERRLA. EOMI. Conjunctiva and sclera normal. Eyelids normal. ENT: TM's Normal. Pharynx normal. Uvula midline. Moist mucous membranes. No trismus noted. No drooling noted. No muffled voice noted. Neck: Normal inspection. Neck supple. FROM. No adenopathy. Thyroid Normal. No meningeal signs. No neck mass noted. CVS: Normal heart rate and rhythm. Heart sound normal. No murmurs noted. Pulses normal throughout. Respiratory: No respiratory distress. Painless inspiration. Breath sounds normal. No wheezes/rales/rhonchi noted. Chest nontender. No accessory muscle usage noted or decreased air movement noted. Abdomen: Soft and nontender. Bowel sounds normal in all 4 quadrants. No distention noted. No organomegaly noted. No visible injury noted. Back: No CVA tenderness. Full range of motion noted. Skin: Skin warm and dry. Normal skin color. Normal skin turgor. No rashes/lesions/lacerations noted. Extremities: No lower extremity edema. Extremities exhibit normal range of motion. Extremities nontender. Neuro: Oriented X 3. . Course Course Course Narrative: 39-year-old male mostly bedridden secondary to MS, with a chronic indwelling suprapubic catheter that was dislodged, that was placed in the emergency department with no complication. With mild non complicated UTI. Start the patient on cefuroxime and encouraged to drink plenty of fluids. Procedures Catheter Insertion (Urinary) Date of insertion: 07/07/20 Time of insertion: 08:14 Reason for placing: Yes Reason for placing indwelling catheter: Prolonged immobilization Bladder scan/ultrasound used before catheterization: No Estimated amount of urine (mLs): 500 Topical anesthesia used: No Catheter type/location: Suprapubic Catheter balloon size (mL): 10 Results: successfully catheterized-immediate flow Medical Decision Making Lab Data Lab results reviewed: Yes I reviewed the patient's lab results. Labs: Lab Results 07/07/20 Range/Units 08:31 Urine Color YELLOW Urine Appearance HAZY Urine pH 8.5 H (5.0-8.0) Ur Specific [place] 1.020 (1.005-1.025) Urine Protein 1+ H (NEG-TRACE) MG/DL Urine Glucose (UA) NEG (NEG) MG/DL Urine Ketones NEG (NEG) MG/DL Urine Blood 3+ H (NEG) Urine Nitrite NEG (NEG) Ur Leukocyte Esterase 1+ H (NEG) Urine RBC 76-150 H (0) /HPF Urine WBC 5-9 H (0-4) /HPF Ur Squamous Epith Cells NONE /LPF Urine Bacteria TRACE /LPF Discharge Plan Discharge Clinical Impression: UTI (urinary tract infection) Qualifiers: Urinary tract infection type: acute cystitis Hematuria presence: without hematuria Qualified Code(s): N30.00 - Acute cystitis without hematuria Suprapubic catheter dysfunction Qualifiers: Encounter type: initial encounter Qualified Code(s): T83.010A - Breakdown (mechanical) of cystostomy catheter, initial encounter Patient Disposition: er [facility] Instructions: Urinary Tract Infection in Men (ED), How to Care for Your Suprapubic Catheter (DC) Prescriptions: New cefuroxime axetil 500 mg tablet 500 mg PO BID Qty: 14 RF: 0 No Action acetaminophen 325 mg Tablet 350 mg PO NEEDED RF: 0 gabapentin 600 mg Tablet 1,200 mg PO TID RF: 0 trazodone 50 mg Tablet 25 mg PO NEEDED RF: 0 cetirizine 10 mg Tablet 10 mg PO DAILY RF: 0 methadone 10 mg Tablet 10 mg PO TID RF: 0 phenytoin sodium extended 100 mg Capsule 100 mg PO TID RF: 0 amantadine HCl 100 mg Capsule 100 mg PO BID RF: 0 baclofen 20 mg Tablet 40 mg PO TID RF: 0 ascorbic acid (vitamin C) 250 mg Tablet 500 mg PO BID RF: 0 bisacodyl 10 mg Suppository 10 mg ID DAILY RF: 0 docusate sodium [Colace] 100 mg Capsule 100 mg PO BID RF: 0 amitriptyline 100 mg Tablet 100 mg PO BEDTIME RF: 0 diazepam [Valium] 5 mg Tablet 5 mg PO TID PRN (Reason: Anxiety) RF: 0 senna 8.6 mg Capsule 17.2 mg PO BID RF: 0 tizanidine 4 mg Capsule 8 mg PO TID RF: 0 melatonin 5 mg Tablet 5 mg PO BEDTIME PRN (Reason: Insomnia) RF: 0 metoprolol succinate 25 mg Capsule,Sprinkle,Er 24hr 25 mg PO DAILY RF: 0 Milk of Magnesia 400 mg/5 ml suspension 150 mg PO NEEDED RF: 0 Tecfidera 240 mg PO BID RF: 0 cefuroxime axetil 250 mg tablet 250 mg PO BID Qty: 10 RF: 0 Referrals: Emma Cross MD [Primary Care Provider] - 2 days
[2020-07-07 08:37] LABS: Glucose Urine UA NEG (NEG); Leukocyte Esterase Urine 1+ (NEG); Nitrite Urine NEG (NEG); PH 8.5 (5.0-8.0); UACC Culture Trigger YES; Urine Blood 3+ (NEG); Urine Ketones NEG (NEG); Urine Protein 1+ MG/DL (NEG-TRACE)
[2020-07-07 08:38] LABS: Appearance Urine HAZY; Color Urine YELLOW
[2020-07-07 08:50] LABS: Bacteria Urine TRACE /LPF
--- NOTE | 2020-07-07 09:33 | PC.NURSE ---
pt had large bm, cleaned
== END 2020-07-07 10:36 | disposition skilled nursing facility (03) ==
PROVIDERS: Emergency Provider Emergency Medicine; PCP Internal Medicine
DX: N30.00 Acute cystitis without hematuria (principal); T83.010A Breakdown (mechanical) of cystostomy catheter, initial encounter; X58.XXXA Exposure to other specified factors, initial encounter; Y93.9 Activity, unspecified; Y92.9 Unspecified place or not applicable; Y99.9 Unspecified external cause status; Z79.899 Other long term (current) drug therapy
CPT/HCPCS: 51702; 81001; 81003; 87086; 99283

== ENCOUNTER 2020-08-02 10:47 | Emergency (ER) | payer MEDICAID, SELFPAY ==
[2020-08-02 10:56] VITALS: BP 119/71; PULSE 81; RESP 18; TEMP 36.6; O2SAT 99; BMI 24.3
--- NOTE | 2020-08-02 12:23 | ED_ITS ---
HPI - General Adult General Chief complaint: General Medical Stated complaint: judge issues Time Seen by Provider: 08/02/20 11:37 Source: patient and EMS Mode of arrival: EMS Limitations: no limitations History of Present Illness HPI narrative: 39 yo male with history of multiple sclerosis, neurogenic bladder with suprapubic catheter, recent MS flare in June 2020 requiring admission, hx UTI, insomnia, constipation who presents to the ED from custodial with difficulty changing his suprapubic catheter by nursing today. He states it usually gets changed once per month and it was due to routine changing today. Roby lucas was unable to remove the catheter and he reports some discomfort with it. He denies pain at this time, no N/V, abdominal pain. No fever, no chills. MD complaint: suprapubic catheter difficulty Onset (ago): hour(s) Location: abdomen Radiation: non-radiation Severity: mild Relieving factors: none Associated symptoms: denies other symptoms Treatments prior to arrival: none Related Data Home Medications Medication Instructions Recorded Confirmed Milk of Magnesia 150 mg PO NEEDED 04/14/20 04/14/20 Tecfidera 240 mg PO BID 04/14/20 04/14/20 acetaminophen 350 mg PO NEEDED 04/14/20 04/14/20 amantadine HCl 100 mg PO BID 04/14/20 04/14/20 amitriptyline 100 mg PO BEDTIME 04/14/20 04/14/20 ascorbic acid (vitamin C) 500 mg PO BID 04/14/20 04/14/20 baclofen 40 mg PO TID 04/14/20 04/14/20 bisacodyl 10 mg MA DAILY 04/14/20 04/14/20 cetirizine 10 mg PO DAILY 04/14/20 04/14/20 diazepam [Valium] 5 mg PO TID PRN 04/14/20 04/14/20 docusate sodium [Colace] 100 mg PO BID 04/14/20 04/14/20 gabapentin 1,200 mg PO TID 04/14/20 04/14/20 melatonin 5 mg PO BEDTIME PRN 04/14/20 04/14/20 methadone 10 mg PO TID 04/14/20 04/14/20 metoprolol succinate 25 mg PO DAILY 04/14/20 04/14/20 phenytoin sodium extended 100 mg PO TID 04/14/20 04/14/20 senna 17.2 mg PO BID 04/14/20 04/14/20 tizanidine 8 mg PO TID 04/14/20 04/14/20 trazodone 25 mg PO NEEDED 04/14/20 04/14/20 Previous Rx's Medication Instructions Recorded cefuroxime axetil 250 mg PO BID #10 tab 04/15/20 cefuroxime axetil 500 mg PO BID #14 tab 07/07/20 Allergies Allergy/AdvReac Type Severity Reaction Status Date / Time bee pollen [BEE STINGS] Allergy Unknown SWELLING Unverified 11/30/19 15:18 bees, hornets, wasps Allergy Unknown anaphylaxis Uncoded 01/20/16 00:00 Review of Systems Review of Systems: Constitutional: No Fever, No Chills Cardiovascular: No Chest Pain, No SOB Respiratory: No Cough, No Sputum Gastrointestinal: No Nausea, No Vomiting, No Diarrhea, No abdominal Pain Genitourinary: No Dysuria, No Urinary Frequency, No Hematuria Musculoskeletal: + joint pain, + Myalgias (both chronic) Skin: No Skin Lesions, No rash Heme/Lymph: No Bruising PMFSH Past Medical History Attestation statement: The following information was validated with the patient. Medical History Hepatitis C Multiple sclerosis Neuromyopathy Suprapubic catheter UTI (urinary tract infection) Social History Social History Advance Directives: No Advance Directives Information Provided: No service: No Current occupational status: disabled Physical Exam Vital Signs: Vital Signs: Last Vital Signs Temp 98 F 08/02/20 10:56 Pulse 81 08/02/20 10:56 Resp 18 08/02/20 10:56 BP 119/71 08/02/20 10:56 Pulse Ox 99 08/02/20 10:56 Body Mass Index 24.3 Appearance: Alert. Oriented X3. No acute distress. Eyes: Pupils equal, round and reactive to light. ENT: Pharynx normal. Dentition is poor Neck: Normal inspection. Neck supple. CVS: Normal heart rate and rhythm. Pulses normal. Respiratory: No respiratory distress. Breath sounds normal. Abdomen: Soft and nontender. +BS x4. SPC catheter in place, draining clear yellow urine Skin: Skin warm and dry. Normal skin color. Normal skin turgor. No rashes. Extremities: No lower extremity edema. Neuro: Oriented X 3. Slow to respond but answers questions appropriately. VANDANA mercer, inocencio of RUE Course Course Course Narrative: 39 y/o male presenting with difficutly changing routing suprapubic catheter at custodial today. Procedure was performed successfully at the bedside, under sterile conditions with Dr. Jordan. Small superficial skin adhesion was present causing initial difficulty but this was easily rectified with some manual pressure. No signs or symptoms of infection. Urine is clear. Stable for d/c home with routine follow up with PCP and Urologist. Procedures Catheter Insertion (Urinary) Date of insertion: 08/02/20 Time of insertion: 12:20 Reason for placing: Yes Reason for placing indwelling catheter: Other (neurogenic bladder) Patient has the following: history of catheter associated urinary tract infection Bladder scan/ultrasound used before catheterization: No Antiseptic solution prep: Povidone-Iodine Topical anesthesia used: No Catheter type/location: Suprapubic Size (Finnish): 16 Catheter balloon size (mL): 10 Catheter balloon amount: 10 Results: successfully catheterized-immediate flow Procedure performed: without complications Critical Care Time Critical Care Time Critical Care Time: No Discharge Plan Discharge Clinical Impression: Encounter for suprapubic catheter care Patient Disposition: Xfer Other Transfer Details: back to [facility] Instructions: How to Care for Your Suprapubic Catheter (DC), Suprapubic Cystostomy (DC) Additional Instructions: Your catheter was successfully exchanged today in the ER. Follow up with your Urologist and doctor as needed. If you develop fever, chills, or any other concerning symptom call your doctor or come back to the ER for further evaluation. Prescriptions: No Action cefuroxime axetil 500 mg tablet 500 mg PO BID Qty: 14 RF: 0 acetaminophen 325 mg Tablet 350 mg PO NEEDED RF: 0 gabapentin 600 mg Tablet 1,200 mg PO TID RF: 0 trazodone 50 mg Tablet 25 mg PO NEEDED RF: 0 cetirizine 10 mg Tablet 10 mg PO DAILY RF: 0 methadone 10 mg Tablet 10 mg PO TID RF: 0 phenytoin sodium extended 100 mg Capsule 100 mg PO TID RF: 0 amantadine HCl 100 mg Capsule 100 mg PO BID RF: 0 baclofen 20 mg Tablet 40 mg PO TID RF: 0 ascorbic acid (vitamin C) 250 mg Tablet 500 mg PO BID RF: 0 bisacodyl 10 mg Suppository 10 mg MA DAILY RF: 0 docusate sodium [Colace] 100 mg Capsule 100 mg PO BID RF: 0 amitriptyline 100 mg Tablet 100 mg PO BEDTIME RF: 0 diazepam [Valium] 5 mg Tablet 5 mg PO TID PRN (Reason: Anxiety) RF: 0 senna 8.6 mg Capsule 17.2 mg PO BID RF: 0 tizanidine 4 mg Capsule 8 mg PO TID RF: 0 melatonin 5 mg Tablet 5 mg PO BEDTIME PRN (Reason: Insomnia) RF: 0 metoprolol succinate 25 mg Capsule,Sprinkle,Er 24hr 25 mg PO DAILY RF: 0 Milk of Magnesia 400 mg/5 ml suspension 150 mg PO NEEDED RF: 0 Tecfidera 240 mg PO BID RF: 0 cefuroxime axetil 250 mg tablet 250 mg PO BID Qty: 10 RF: 0
== END 2020-08-02 15:11 | disposition other institution (70) ==
PROVIDERS: Emergency Provider Internal Medicine
DX: R10.30 Lower abdominal pain, unspecified (principal); T83.9XXA Unspecified complication of genitourinary prosthetic device, implant and graft, initial encounter; Y73.8 Miscellaneous gastroenterology and urology devices associated with adverse incidents, not elsewhere classified; Y92.9 Unspecified place or not applicable; Z79.899 Other long term (current) drug therapy
CPT/HCPCS: 51102; 51702; 51705; 99282; 99284

== ENCOUNTER 2020-08-16 13:08 | Emergency (ER) | payer MEDICAID, SELFPAY ==
--- NOTE | ~2020-08-16 | CT_ITS ---
EXAMINATION: CT ABDOMEN AND PELVIS WITH CONTRAST CLINICAL INFORMATION: Diffuse abdominal pain. History of constipation. COMPARISON: None TECHNIQUE: Multidetector volumetric images were obtained from the superior aspect of the liver through the pubic symphysis following administration 85 mL of Omnipaque 350 intravenous contrast. Sagittal and coronal reformatted images were obtained on the technologist's workstation. Oral contrast: No This CT examination was performed using dose optimization techniques as appropriate, variously including the following: *Automated exposure control *Adjustment of mA and/or kV according to patient size (this includes techniques or standardized protocols for targeted exams where dose is matched to indication/reason for exam; i.e. extremities or head) *Use of iterative reconstruction technique DLP: 996 mGy-cm FINDINGS: LUNG BASES: There is platelike atelectasis in both lung bases.. LIVER, GALLBLADDER, AND BILIARY TREE: The liver is normal in size, shape, and attenuation. There are several small hypodense lesions in the right and left hepatic lobe. There is no intrahepatic ductal dilatation. The gallbladder is unremarkable with no evidence of radiopaque gallstones, gallbladder wall thickening, or obvious pericholecystic inflammatory changes. PANCREAS: Unremarkable. SPLEEN: Unremarkable. ADRENAL GLANDS: Unremarkable. KIDNEYS AND URETERS: The kidneys are normal in size, shape, and attenuation. No hydronephrosis, hydroureter, or calculi seen. No perinephric stranding. BLADDER: There is a decompressed bladder with a suprapubic catheter in place GASTROINTESTINAL TRACT: There is large amount of stool seen in the colon without any significant distention. The small bowel loops are normal caliber. Appendix is not visualized. The stomach is nondistended. ABDOMINAL WALL: No significant hernia is appreciated. LYMPH NODES: Normal. VASCULAR: Unremarkable. PELVIC VISCERA: There is nonspecific mild wall thickening of the rectum and the anus region suggestive of proctitis. There is presacral soft tissue fat stranding but no abscess or fistulous connection seen. OSSEOUS STRUCTURES: No lytic or sclerotic process seen. CT/CT abdomen pelvis w con IMPRESSION: Diffuse significant constipation. Moderate mural thickening involving the rectum, sigmoid colon and anus suggestive of proctitis, ? inflammatory process or underlying intramural lesion. There is mild presacral fat stranding. There are small bilateral 1 cm iliac lymph nodes. Several hypodense liver lesions likely small to moderate size cysts. Decompressed bladder with a suprapubic catheter in place.
[2020-08-16 13:21] VITALS: BP 102/78; BP 109/77; PULSE 79; PULSE 81; RESP 18; TEMP 36.7; O2SAT 95; O2SAT 96; BMI 24.1
[2020-08-16 14:00] LABS: MANUAL DIFF FLAG NO
[2020-08-16 14:01] LABS: Basophils Percent Auto 0.5 % (0-2); Eosinophils Absolute Auto 0.2 X10*3/uL (0.0-0.4); Eosinophils Percent Auto 2.8 % (0-4); Hematocrit 41.8 % (42-52); Hemoglobin 13.9 g/dl (14.0-18.0); Imm Gran Abs Auto 0.01 X10*3/uL (0.00-0.03); Imm Gran Pct Auto 0.2 % (0.0-0.4); Lymphocytes Absolute Auto 2.9 X10*3/uL (1.2-4.9); Lymphocytes Percent Auto 50.1 % (20-40); Mean Corpuscular HGB Conc 33.3 g/dl (31.0-36.0); Mean Corpuscular Hemoglobin 30.2 pg (27.0-33.0); Mean Corpuscular Volume 90.9 fL (80-98); Monocytes Absolute Auto 0.5 X10*3/uL (0.1-1.2); Monocytes Percent Auto 8.3 % (2-11); Neutrophils Absolute Auto 2.2 X10*3/uL (2.0-8.3); Neutrophils Percent Auto 38.1 % (45-73); Platelet Count 189 X10*3/uL (160-400); White Blood Count 5.8 X10*3/uL (4.8-10.8)
[2020-08-16 14:06] LABS: Prothrombin Time 12.3 SEC (10.8-13.0)
--- NOTE | 2020-08-16 14:09 | ED.GENADULT ---
HPI - General Adult General Chief complaint: General Medical Stated complaint: MED REFILL, COMING FROM Time Seen by Provider: 08/16/20 13:18 Source: patient and other (intermediate staff member) Mode of arrival: EMS Limitations: other (Psychotic disorder and multiple sclerosis) History of Present Illness HPI narrative: 39-year-old male with a past medical history of multiple sclerosis, neurogenic bladder with suprapubic catheter, multiple sclerosis, insomnia, recurrent UTIs and constipation presenting to the ED from half-way with complaints of needing a med refill and poor appetite since yesterday with associated diffuse abdominal pain and constipation. Patient denies any fevers, dizziness, lightheadedness, change in vision, nausea/vomiting, chest pain, shortness of breath, cough, palpitations, back pain, dysuria, penile discharge, diarrhea, black or bloody stools or any other symptoms complaints or concerns at this time. Patient needs the med refill on his methadone 15 mg t.i.d. and Valium 5 mg t.i.d. as patient was recently moved from a residential facility to this half-way and they are unable to get a refill due to awaiting for new PCP appointment the patient runs out of his medications this evening. Patient is scheduled for his next dose at 3 PM. Related Data Home Medications Medication Instructions Recorded Confirmed Milk of Magnesia 150 mg PO NEEDED 04/14/20 04/14/20 Tecfidera 240 mg PO BID 04/14/20 04/14/20 acetaminophen 350 mg PO NEEDED 04/14/20 04/14/20 amantadine HCl 100 mg PO BID 04/14/20 04/14/20 amitriptyline 100 mg PO BEDTIME 04/14/20 04/14/20 ascorbic acid (vitamin C) 500 mg PO BID 04/14/20 04/14/20 baclofen 40 mg PO TID 04/14/20 04/14/20 bisacodyl 10 mg WA DAILY 04/14/20 04/14/20 cetirizine 10 mg PO DAILY 04/14/20 04/14/20 diazepam [Valium] 5 mg PO TID PRN 04/14/20 04/14/20 docusate sodium [Colace] 100 mg PO BID 04/14/20 04/14/20 gabapentin 1,200 mg PO TID 04/14/20 04/14/20 melatonin 5 mg PO BEDTIME PRN 04/14/20 04/14/20 methadone 10 mg PO TID 04/14/20 04/14/20 metoprolol succinate 25 mg PO DAILY 04/14/20 04/14/20 phenytoin sodium extended 100 mg PO TID 04/14/20 04/14/20 senna 17.2 mg PO BID 04/14/20 04/14/20 tizanidine 8 mg PO TID 04/14/20 04/14/20 trazodone 25 mg PO NEEDED 04/14/20 04/14/20 Previous Rx's Medication Instructions Recorded cefuroxime axetil 250 mg PO BID #10 tab 04/15/20 cefuroxime axetil 500 mg PO BID #14 tab 07/07/20 cefuroxime axetil 250 mg PO BID 10 Days #20 tab 08/16/20 diazepam [Valium] 5 mg PO TID PRN #90 tab 08/16/20 doxycycline hyclate 100 mg PO BID 10 Days #20 tab 08/16/20 methadone 5 mg PO TID #90 tab 08/16/20 methadone 5 mg PO TID #90 tab 08/16/20 peg 3350-electrolytes [Golytely] 240 ml PO Q10M 1 Days #4000 ml 08/16/20 Allergies Allergy/AdvReac Type Severity Reaction Status Date / Time bee pollen [BEE STINGS] Allergy Unknown SWELLING Verified 08/16/20 13:28 bees, hornets, wasps Allergy Unknown anaphylaxis Uncoded 01/20/16 00:00 Review of Systems Review of Systems: Constitutional : Poor appetite since last night, No Weight loss, No Fever, No Chills, No Night Sweats, No Fatigue, No Malaise ENT/Mouth: No ear pain, No sore throat, No Difficulty swallowing Cardiovascular : No Chest Pain, No SOB, No Dyspnea on Exertion, No Orthopnea, NoEdema, No Palpitations Respiratory : No Cough, No Sputum, No Wheezing, No Dyspnea Gastrointestinal : Positive abdominal pain and constipation, No Nausea, No Vomiting, No Diarrhea, No blood streaked emesis, No coffee-ground emesis, No gross hematemesis, No blood streak stool, No gross hematochezia, No Melena Genitourinary : No irregular bleeding, No Dysuria, No Urinary Frequency, No Hematuria,No Urinary Incontinence, No Urgency, No Flank Pain Musculoskeletal : No joint pain, No Myalgias, No Joint Swelling Skin : No Skin Lesions, No rash Neuro : No Weakness, No Numbness, No Paresthesias, No Loss of Consciousness, NoDizziness, No Headache Psych : No Social Issues, Heme/Lymph: No Bruising, No Bleeding,No Lymphadenopathy Endocrine : No Polyuria, No Polydipsia, No Temperature Intolerance Yes all other systems are reviewed and are negative [facility] Past Medical History Attestation statement: The following information was validated with the patient. Medical History Hepatitis C Multiple sclerosis Neuromyopathy Suprapubic catheter UTI (urinary tract infection) Social History Social History Alcohol intake: never Patient Tobacco Use Status: Tobacco use Unknown Use of substances other than those prescribed or required for medical reasons: Unknown Advance Directives: No Advance Directives Information Provided: Yes service: No Current occupational status: disabled Physical Exam Vital Signs: Vital Signs: Last Vital Signs Temp 98.0 F 08/16/20 13:21 Pulse 81 08/16/20 13:21 Resp 18 08/16/20 13:21 BP 102/78 08/16/20 13:21 Pulse Ox 95 08/16/20 13:21 Body Mass Index 24.1 vital signs have been reviewed as normal and appeared to be correct. Blood pressure normal. Heart rate normal. Respiration rate normal. Temperature normal. Oxygen saturation normal. Appearance: Alert. Oriented X3. No acute distress. Head: Normal external exam. Normocephalic. Atraumatic. Eyes: PERRLA. EOMI. Conjunctiva and sclera normal. Eyelids normal. ENT: Pharynx normal. Uvula midline. Moist mucous membranes. Neck: Normal inspection. Neck supple. FROM. No adenopathy. Thyroid Normal. No meningeal signs. No neck mass noted. CVS: Normal heart rate and rhythm. Heart sound normal. Pulses normal throughout. No murmurs/rales/gallops. Respiratory: No respiratory distress. Painless inspiration. Breath sounds normal. No wheezes/rales/rhonchi noted. Chest nontender. No accessory muscle usage noted or decreased air movement noted. Abdomen: Soft and mild tenderness diffusely. Bowel sounds normal in all 4 quadrants. No distention noted. No organomegaly noted. No visible injury noted. Back: No CVA tenderness. Full range of motion noted. No rashes/lesion/induration/fluctuance or signs of infection noted. Skin: Skin warm and dry. Normal skin color. Normal skin turgor. No rashes/lesions/lacerations noted. Extremities: No lower extremity edema. No calf tenderness noted. Extremities nontender. Neuro: Oriented X 3. No motor deficit. No sensory deficit. Reflexes normal. No focal neuro deficits noted. Vascular: + radial pulses/+ 2 distal pedal pulses/+2 dorsalis pedis b/l. Normal cap refill. No cyanosis noted to upper extremity nails and lower extremity toes nails. Course Course Course Narrative: 16:30pm - Labs reviewed and all within normal limits. UA revealed positive nitrates therefore patient has a UTI. CT scan of abdomen and pelvis revealed diffuse significant constipation. Also revealed moderate mural thickening involving the rectum, sigmoid colon and anus suggestive of proctitis questioning inflammatory process or underline intramural lesion. There is also presacral fat stranding. Also has small bilateral 1 cm iliac lymph nodes. Several hypodensity liver lesions likely small to moderate size cyst. Otherwise no other acute processes were noted. - therefore will obtain a urine sample for gonorrhea chlamydia treat for gonorrhea chlamydia and then sent home with antibiotics with instructions to follow-up with his primary care provider for a colonoscopy and DC home with GoLYTELY for his constipation. Patient and staff worker at bedside understand and agree with this plan. Reevaluation(s) Time: 16:[address] [facility] Narrative Medical decision making narrative: 13:30pm - 39-year-old male with a past medical history of multiple sclerosis, neurogenic bladder with suprapubic catheter, multiple sclerosis, insomnia, recurrent UTIs and constipation presenting to the ED from half-way with complaints of needing a med refill and poor appetite since yesterday with associated diffuse abdominal pain and constipation. Patient needs the med refill on his methadone 15 mg t.i.d. and Valium 5 mg t.i.d. as patient was recently moved from a residential facility to this half-way and they are unable to get a refill due to awaiting for new PCP appointment the patient runs out of his medications this evening. Patient is scheduled for his next dose at 3 PM. Plan: Labs, CT scan of abd/pelvis c IV contrast then re-evaluate Medical Records Medical records reviewed: Yes I reviewed the patient's medical records. Lab Data Lab results reviewed: Yes I reviewed the patient's lab results. Result diagrams: 08/16/20 13:55 08/16/20 13:55 Labs: Lab Results 08/16/20 08/16/20 08/16/20 Range/Units 13:55 13:55 13:55 WBC 5.8 (4.8-10.8) X10*3/uL RBC 4.60 (4.60-5.80) X10*6/uL Hgb 13.9 L (14.0-18.0) g/dl Hct 41.8 L (42-52) % MCV 90.9 (80-98) fL MCH 30.2 (27.0-33.0) pg MCHC 33.3 (31.0-36.0) g/dl RDW 12.0 (11.0-16.0) % Plt Count 189 D (160-400) X10*3/uL MPV 9.0 L (9.4-12.4) fL Immature Gran % (Auto) 0.2 (0.0-0.4) % Neut % (Auto) 38.1 L (45-73) % Lymph % (Auto) 50.1 H (20-40) % [place] % (Auto) 8.3 (2-11) % Eos % (Auto) 2.8 (0-4) % Baso % (Auto) 0.5 (0-2) % Lymph # (Auto) 2.9 (1.2-4.9) X10*3/uL [place] # (Auto) 0.5 (0.1-1.2) X10*3/uL Eos # (Auto) 0.2 (0.0-0.4) X10*3/uL Baso # (Auto) 0.0 (0.0-0.2) X10*3/uL Abs Immat Gran (auto) 0.01 (0.00-0.03) X10*3/uL Absolute Neuts (auto) 2.2 (2.0-8.3) X10*3/uL Absolute Nucleated RBC 0.000 (0.0-0.012) X10*3/uL Nucleated RBC % (auto) 0.0 (0.0-0.2) /100WBC PT 12.3 (10.8-13.0) SEC INR 1.0 (0.9-1.1) Sodium 139 (135-145) mmol/L Potassium 4.7 D (3.3-5.1) mmol/L Chloride 103 (96-108) mmol/L Carbon Dioxide 32 H (22-29) mmol/L Anion Gap 9 L (12-20) BUN 12 (9-16) mg/dL Creatinine 0.65 (0.5-1.4) mg/dL Estim Creat Clear Calc 164.1 Estimated GFR > 60 Random Glucose 81 D (60-115) mg/dL Calcium 9.5 D (8.4-10.2) mg/dL Magnesium 2.0 (1.6-2.6) mg/dL Total Bilirubin 0.3 (0.0-1.0) mg/dL AST 17 (5-37) U/L ALT 32 (0-40) U/L Alkaline Phosphatase 113 (39-117) U/L Total Protein 7.0 (6.5-8.0) g/dL Albumin 4.3 (3.5-5.0) g/dL Urine Color Urine Appearance Urine pH (5.0-8.0) Ur Specific [place] (1.005-1.025) Urine Protein (NEG-TRACE) MG/DL Urine Glucose (UA) (NEG) MG/DL Urine Ketones (NEG) MG/DL Urine Blood (NEG) Urine Nitrite (NEG) Ur Leukocyte Esterase (NEG) Urine RBC (0) /HPF Urine WBC (0-4) /HPF Ur Squamous Epith Cells /LPF Amorphous Sediment /LPF Urine Bacteria /LPF 08/16/20 Range/Units 14:37 WBC (4.8-10.8) X10*3/uL RBC (4.60-5.80) X10*6/uL Hgb (14.0-18.0) g/dl Hct (42-52) % MCV (80-98) fL MCH (27.0-33.0) pg MCHC (31.0-36.0) g/dl RDW (11.0-16.0) % Plt Count (160-400) X10*3/uL MPV (9.4-12.4) fL Immature Gran % (Auto) (0.0-0.4) % Neut % (Auto) (45-73) % Lymph % (Auto) (20-40) % [place] % (Auto) (2-11) % Eos % (Auto) (0-4) % Baso % (Auto) (0-2) % Lymph # (Auto) (1.2-4.9) X10*3/uL [place] # (Auto) (0.1-1.2) X10*3/uL Eos # (Auto) (0.0-0.4) X10*3/uL Baso # (Auto) (0.0-0.2) X10*3/uL Abs Immat Gran (auto) (0.00-0.03) X10*3/uL Absolute Neuts (auto) (2.0-8.3) X10*3/uL Absolute Nucleated RBC (0.0-0.012) X10*3/uL Nucleated RBC % (auto) (0.0-0.2) /100WBC PT (10.8-13.0) SEC INR (0.9-1.1) Sodium (135-145) mmol/L Potassium (3.3-5.1) mmol/L Chloride (96-108) mmol/L Carbon Dioxide (22-29) mmol/L Anion Gap (12-20) BUN (9-16) mg/dL Creatinine (0.5-1.4) mg/dL Estim Creat Clear Calc Estimated GFR Random Glucose (60-115) mg/dL Calcium (8.4-10.2) mg/dL Magnesium (1.6-2.6) mg/dL Total Bilirubin (0.0-1.0) mg/dL AST (5-37) U/L ALT (0-40) U/L Alkaline Phosphatase (39-117) U/L Total Protein (6.5-8.0) g/dL Albumin (3.5-5.0) g/dL Urine Color YELLOW Urine Appearance CLOUDY Urine pH 7.5 (5.0-8.0) Ur Specific [place] 1.020 (1.005-1.025) Urine Protein TRACE (NEG-TRACE) MG/DL Urine Glucose (UA) NEG (NEG) MG/DL Urine Ketones NEG (NEG) MG/DL Urine Blood TRACE (NEG) Urine Nitrite POS H (NEG) Ur Leukocyte Esterase 3+ H (NEG) Urine RBC 0-2 (0) /HPF Urine WBC 10-14 H (0-4) /HPF Ur Squamous Epith Cells NONE /LPF Amorphous Sediment 2+ /LPF Urine Bacteria 2+ /LPF Imaging Data CT scan abdomen pelvis with IV contrast: Attestation: I personally reviewed and interpreted this imaging study as follows: Radiologist's impression: FINDINGS: LUNG BASES: There is platelike atelectasis in both lung bases.. LIVER, GALLBLADDER, AND BILIARY TREE: The liver is normal in size, shape, and attenuation. There are several small hypodense lesions in the right and left hepatic lobe. There is no intrahepatic ductal dilatation. The gallbladder is unremarkable with no evidence of radiopaque gallstones, gallbladder wall thickening, or obvious pericholecystic inflammatory changes. PANCREAS: Unremarkable. SPLEEN: Unremarkable. ADRENAL GLANDS: Unremarkable. KIDNEYS AND URETERS: The kidneys are normal in size, shape, and attenuation. No hydronephrosis, hydroureter, or calculi seen. No perinephric stranding. BLADDER: There is a decompressed bladder with a suprapubic catheter in place GASTROINTESTINAL TRACT: There is large amount of stool seen in the colon without any significant distention. The small bowel loops are normal caliber. Appendix is not visualized. The stomach is nondistended. ABDOMINAL WALL: No significant hernia is appreciated. LYMPH NODES: Normal. VASCULAR: Unremarkable. PELVIC VISCERA: There is nonspecific mild wall thickening of the rectum and the anus region suggestive of proctitis. There is presacral soft tissue fat stranding but no abscess or fistulous connection seen. OSSEOUS STRUCTURES: No lytic or sclerotic process seen. CT/CT abdomen pelvis w con IMPRESSION: Diffuse significant constipation. Moderate mural thickening involving the rectum, sigmoid colon and anus suggestive of proctitis, ? inflammatory process or underlying intramural lesion. There is mild presacral fat stranding. There are small bilateral 1 cm iliac lymph nodes. Several hypodense liver lesions likely small to moderate size cysts. Decompressed bladder with a suprapubic catheter in place. Discharge Plan Discharge Clinical Impression: UTI (urinary tract infection), Constipation, Acute proctitis Patient Disposition: Home, Self-Care Instructions: Constipation (ED), Proctitis (ED), Medicine Refill (ED) Additional Instructions: You had an abnormal CT scan of your abdomen and pelvis which revealed proctitis also revealed a possible intra mural lesion therefore you will need a colonoscopy by her PCP as soon as possible. You are being treated for UTI along with proctitis and constipation. Return if any new or worsening symptoms follow-up with your primary care provider as scheduled on the of this month. Prescriptions: New peg 3350-electrolytes [Golytely] 236-22.74-6.74 -5.86 gram recon soln 240 ml PO Q10M 1 Days Qty: 4000 RF: 0 methadone 5 mg tablet 5 mg PO TID Qty: 90 RF: 0 diazepam [Valium] 5 mg tablet 5 mg PO TID PRN (Reason: muscle spasm) Qty: 90 RF: 0 cefuroxime axetil 250 mg tablet 250 mg PO BID 10 Days Qty: 20 RF: 0 doxycycline hyclate 100 mg tablet 100 mg PO BID 10 Days Qty: 20 RF: 0 methadone 10 mg tablet 5 mg PO TID Qty: 90 RF: 0 No Action cefuroxime axetil 500 mg tablet 500 mg PO BID Qty: 14 RF: 0 acetaminophen 325 mg Tablet 350 mg PO NEEDED RF: 0 gabapentin 600 mg Tablet 1,200 mg PO TID RF: 0 trazodone 50 mg Tablet 25 mg PO NEEDED RF: 0 cetirizine 10 mg Tablet 10 mg PO DAILY RF: 0 methadone 10 mg Tablet 10 mg PO TID RF: 0 phenytoin sodium extended 100 mg Capsule 100 mg PO TID RF: 0 amantadine HCl 100 mg Capsule 100 mg PO BID RF: 0 baclofen 20 mg Tablet 40 mg PO TID RF: 0 ascorbic acid (vitamin C) 250 mg Tablet 500 mg PO BID RF: 0 bisacodyl 10 mg Suppository 10 mg WA DAILY RF: 0 docusate sodium [Colace] 100 mg Capsule 100 mg PO BID RF: 0 amitriptyline 100 mg Tablet 100 mg PO BEDTIME RF: 0 diazepam [Valium] 5 mg Tablet 5 mg PO TID PRN (Reason: Anxiety) RF: 0 senna 8.6 mg Capsule 17.2 mg PO BID RF: 0 tizanidine 4 mg Capsule 8 mg PO TID RF: 0 melatonin 5 mg Tablet 5 mg PO BEDTIME PRN (Reason: Insomnia) RF: 0 metoprolol succinate 25 mg Capsule,Sprinkle,Er 24hr 25 mg PO DAILY RF: 0 Milk of Magnesia 400 mg/5 ml suspension 150 mg PO NEEDED RF: 0 Tecfidera 240 mg PO BID RF: 0 cefuroxime axetil 250 mg tablet 250 mg PO BID Qty: 10 RF: 0 Referrals: Geneva Young MD [Physician] - 2 days Emma Cross MD [Primary Care Provider] - 2 days Print Language: Frisian
[2020-08-16 14:27] LABS: Alanine Aminotransferase 32 U/L (0-40); Albumin Level 4.3 g/dL (3.5-5.0); Alkaline Phosphatase 113 U/L (39-117); Anion Gap 9 (12-20); Aspartate Amino Transferase 17 U/L (5-37); Bilirubin Total 0.3 mg/dL (0.0-1.0); Blood Urea Nitrogen 12 mg/dL (9-16); Calcium 9.5 mg/dL (8.4-10.2); Carbon Dioxide 32 mmol/L (22-29); Chloride 103 mmol/L (96-108); Creatinine Clr Calc Pharmacy 164.1; Estimated Glomerular Filt Rate > 60; Glucose Random 81 mg/dL (60-115); Potassium 4.7 mmol/L (3.3-5.1); Sodium 139 mmol/L (135-145)
[2020-08-16 14:45] LABS: Glucose Urine UA NEG (NEG); Leukocyte Esterase Urine 3+ (NEG); Nitrite Urine POS (NEG); PH 7.5 (5.0-8.0); UACC Culture Trigger YES; Urine Blood TRACE (NEG); Urine Ketones NEG (NEG); Urine Protein TRACE MG/DL (NEG-TRACE)
[2020-08-16 14:54] LABS: Appearance Urine CLOUDY; Color Urine YELLOW
[2020-08-16 14:55] LABS: Amorphous Sediment Urine 2+ /LPF; Bacteria Urine 2+ /LPF; RBC Urine 0-2 /HPF (0)
[2020-08-16] MEDS: iohexoL 350 MG/ML 100 ML INFUS..BTL IV (14:55)
[2020-08-16] MEDS: cefTRIAXone sodium 500 MG, Lidocaine HCl 1 % MPF 1 ML IM (16:53)
[2020-08-16] MEDS: diazePAM 5 MG TABLET PO (17:31)
[2020-08-16] MEDS: Phenytoin Sodium Extended 100 MG CAPSULE PO (17:31)
[2020-08-16] MEDS: Baclofen 20 MG TABLET 40 MG PO (17:32)
[2020-08-16] MEDS: Gabapentin 600 MG TABLET 1200 MG PO (17:32)
[2020-08-17 12:47] LABS: CT PCR NOT DETECTED (Not Detect.); NG PCR NOT DETECTED (Not Detect.)
== END 2020-08-16 17:56 | disposition home or self-care (01) ==
PROVIDERS: Physician Assistant Medical; Emergency Provider Emergency Medicine Emergency Medical Services; PCP Internal Medicine
DX: N39.0 Urinary tract infection, site not specified (principal); K59.00 Constipation, unspecified; K62.89 Other specified diseases of anus and rectum; R10.9 Unspecified abdominal pain; F11.20 Opioid dependence, uncomplicated; G35 Multiple sclerosis; B19.20 Unspecified viral hepatitis C without hepatic coma; Z93.59 Other cystostomy status; Z76.0 Encounter for issue of repeat prescription
CPT/HCPCS: 36415; 74177; 80053; 81001; 81003; 83735; 85025; 85610; 87086; 87088; 87186; 87491; 87591; 96372; 99284; J0696; Q9967

== ENCOUNTER 2020-09-13 13:33 | Emergency (ER) | payer MEDICAID, SELFPAY ==
[2020-09-13 13:51] VITALS: BP 111/82; PULSE 82; RESP 16; TEMP 36.4; O2SAT 95; BMI 23.0
--- NOTE | 2020-09-13 15:10 | ED_ITS ---
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 They report that the patient has a visiting nurse although the visiting nurse has not change the suprapubic catheter and they are concerned about this. They also want a medication refill for all his scripts which include [place]/ metoprolol succinate ER/25mg every morning, methadone 10 mg t.i.d., methadone 5 mg t.i.d. and Valium 5 mg t.i.d.. They report that Tay the patient's PCP can not prescribe narcotics so she referred him to a pain management clinic however the appointment is on 10/23/2020 at 12:00 they have nothing available sooner. Therefore they are requesting for [facility] especially for the methadone and Valium with enough medication until his appointment to avoid inconvenience of going back and forth to the ER for this matter. Patient denies any additional complaints or concerns at this time. Related Data Home Medications Medication Instructions Recorded Confirmed Milk of Magnesia 150 mg PO NEEDED 04/14/20 04/14/20 Tecfidera 240 mg PO BID 04/14/20 04/14/20 acetaminophen 350 mg PO NEEDED 04/14/20 04/14/20 amantadine HCl 100 mg PO BID 04/14/20 04/14/20 amitriptyline 100 mg PO BEDTIME 04/14/20 04/14/20 ascorbic acid (vitamin C) 500 mg PO BID 04/14/20 04/14/20 baclofen 40 mg PO TID 04/14/20 04/14/20 bisacodyl 10 mg DE DAILY 04/14/20 04/14/20 cetirizine 10 mg PO DAILY 04/14/20 04/14/20 diazepam [Valium] 5 mg PO TID PRN 04/14/20 04/14/20 docusate sodium [Colace] 100 mg PO BID 04/14/20 04/14/20 gabapentin 1,200 mg PO TID 04/14/20 04/14/20 melatonin 5 mg PO BEDTIME PRN 04/14/20 04/14/20 methadone 10 mg PO TID 04/14/20 04/14/20 metoprolol succinate 25 mg PO DAILY 04/14/20 04/14/20 phenytoin sodium extended 100 mg PO TID 04/14/20 04/14/20 senna 17.2 mg PO BID 04/14/20 04/14/20 tizanidine 8 mg PO TID 04/14/20 04/14/20 trazodone 25 mg PO NEEDED 04/14/20 04/14/20 Previous Rx's Medication Instructions Recorded cefuroxime axetil 250 mg PO BID #10 tab 04/15/20 cefuroxime axetil 500 mg PO BID #14 tab 07/07/20 cefuroxime axetil 250 mg PO BID 10 Days #20 tab 08/16/20 diazepam [Valium] 5 mg PO TID PRN #90 tab 08/16/20 doxycycline hyclate 100 mg PO BID 10 Days #20 tab 08/16/20 methadone 5 mg PO TID #90 tab 08/16/20 methadone 5 mg PO TID #90 tab 08/16/20 peg 3350-electrolytes [Golytely] 240 ml PO Q10M 1 Days #4000 ml 08/16/20 diazepam [Valium] 5 mg PO TID PRN #90 tab 09/13/20 methadone 5 mg PO TID #90 tab 09/13/20 methadone 10 mg PO TID #90 tab 09/13/20 metoprolol succinate 25 mg PO DAILY #30 tab 09/13/20 Allergies Allergy/AdvReac Type Severity Reaction Status Date / Time bee pollen [BEE STINGS] Allergy Unknown SWELLING Verified 08/16/20 13:28 bees, hornets, wasps Allergy Unknown anaphylaxis Uncoded 01/20/16 00:00 Review of Systems Review of Systems: Constitutional : No Weight loss, No Fever, No Chills, No Night Sweats, No Fatigue, No Malaise ENT/Mouth : No Hearing loss, No Ear Pain, No Nasal Congestion, No Sinus Pain, No Hoarseness, No sore throat, No Rhinorrhea, No Swallowing Difficulty Eyes: No Eye Pain, No Swelling, No Redness, No Foreign Body, No Discharge, No Vision Changes Cardiovascular : No Chest Pain, No SOB, No Dyspnea on Exertion, No Orthopnea, No Edema, No Palpitations Respiratory : No Cough, No Sputum, No Wheezing, No Smoke Exposure, No Dyspnea Gastrointestinal : No Nausea, No Vomiting, No Diarrhea, No Constipation, No abdominal Pain, No Hematochezia, No Melena Genitourinary : no irregular bleeding, No Dysuria, No Urinary Frequency, No Hematuria, No Urinary Incontinence, No Urgency, No Flank Pain, No Urinary Flow Changes, No Hesitancy Musculoskeletal : No joint pain, No Myalgias, No Joint Swelling Skin : No Skin Lesions, No rash Neuro : No Weakness, No Numbness, No Paresthesias, No Loss of Consciousness, No Dizziness, No Headache Psych : No Anxiety/Panic, No Depression, No SI/HI/AH/VH, No Social Issues, Heme/Lymph: No Bruising, No Bleeding,No Lymphadenopathy Endocrine : No Polyuria, No Polydipsia, No Temperature Intolerance Yes all other systems are reviewed and are negative [facility] Past Medical History Attestation statement: The following information was validated with the patient. Medical History Hepatitis C Multiple sclerosis Neuromyopathy Suprapubic catheter UTI (urinary tract infection) Social History Social History Alcohol intake: never Patient Tobacco Use Status: Tobacco use Unknown Advance Directives: Yes Advance Directives on File: Yes Advance Directives Date on File: 04/16/20 service: No Current occupational status: disabled Physical Exam Vital Signs: Vital Signs: Last Vital Signs Temp 97.6 F 09/13/20 13:51 Pulse 82 09/13/20 13:51 Resp 16 09/13/20 13:51 BP 111/82 09/13/20 13:51 Pulse Ox 95 09/13/20 13:51 Body Mass Index 23.0 vital signs have been reviewed as normal and appeared to be correct. Blood pressure normal. Heart rate normal. Respiration rate normal. Temperature normal. Oxygen saturation normal. Appearance: Alert. Oriented X3. No acute distress. Head: Normal external exam. Normocephalic. Atraumatic. Eyes: PERRLA. EOMI. Conjunctiva and sclera normal. Eyelids normal. ENT: Pharynx normal. Uvula midline. Moist mucous membranes. Neck: Normal inspection. Neck supple. FROM. No adenopathy. Thyroid Normal. No meningeal signs. No neck mass noted. CVS: Normal heart rate and rhythm. Heart sound normal. Pulses normal throughout. No murmurs/rales/gallops. Respiratory: No respiratory distress. Painless inspiration. Breath sounds normal. No wheezes/rales/rhonchi noted. Chest nontender. No accessory muscle usage noted or decreased air movement noted. Abdomen: Soft and nontender. Bowel sounds normal in all 4 quadrants. No distention noted. No organomegaly noted. No visible injury noted. Suprapubic catheter in place. No signs of infection at the site. Back: No CVA tenderness. Full range of motion noted. No rashes/lesion/induration/fluctuance or signs of infection noted. Skin: Skin warm and dry. Normal skin color. Normal skin turgor. No rashes/lesions/lacerations noted. Extremities: No lower extremity edema. Extremities exhibit normal range of motion. Extremities nontender. Neuro: Oriented X 3. Course Course Course Narrative: 39-year-old male presenting to the ED with request to change his suprapubic catheter due to has not been changed in over a month despite visiting nurses going to the senior care. Per senior care staff he also has not followed up with urologist. They are also requesting a refill of all his medications due to his new PCP is not comfortable prescribing him the methadone or the Valium. Otherwise patient denies any additional complaints or concerns at this time. Therefore suprapubic catheter changed and replaced with the same 16 [place] that was already in place. Will DC home with medication refills and instructions to follow-up with urology. I discussed this case with Dr. Zepeda and he reported that anyone with a suprapubic catheter should have the suprapubic catheter changed every 4-6 weeks. Patient has an appointment with Dr. Zepeda on 10/22/2020 although the senior care and patient were not aware about this therefore I will give him Dr. Zepeda number and instruct him to call him for the appointment time. Along with instructions to return if any new or worsening symptoms and to follow up with primary care provider as well and pain and mint. Medical Decision Making Medical Records Medical records reviewed: Yes I reviewed the patient's medical records. Lab Data Labs: Lab Results 09/13/20 Range/Units 15:14 Urine Color YELLOW Urine Appearance TURBID Urine pH 7.5 (5.0-8.0) Ur Specific [place] 1.015 (1.005-1.025) Urine Protein 2+ H (NEG-TRACE) MG/DL Urine Glucose (UA) NEG (NEG) MG/DL Urine Ketones NEG (NEG) MG/DL Urine Blood 3+ H (NEG) Urine Nitrite POS H (NEG) Ur Leukocyte Esterase 3+ H (NEG) Urine RBC 76-150 H (0) /HPF Urine WBC 5-9 H (0-4) /HPF Urine WBC Clumps NOTED Ur Squamous Epith Cells TRACE /LPF Triple Phos Crystals TRACE /LPF Urine Bacteria TRACE /LPF Discharge Plan Discharge Clinical Impression: Urinary catheter (Armijo) change required, Medication refill Patient Disposition: Home, Self-Care Instructions: How to Care for Your Suprapubic Catheter (DC), Medicine Refill (ED) Additional Instructions: it appears that you have an appointment with urology Dr. Zepeda on 10/22/2020 please call his office to confirm this appointment and to confirm the time. You should also follow-up with her primary care provider. You should also follow-up with pain management for further prescription for your methadone and your Valium. Your suprapubic catheter should be changed every 4-6 weeks at the very least. Return if any new or worsening symptoms. Prescriptions: New methadone 10 mg tablet 10 mg PO TID Qty: 90 RF: 0 methadone 5 mg tablet 5 mg PO TID Qty: 90 RF: 0 diazepam [Valium] 5 mg tablet 5 mg PO TID PRN (Reason: muscle spasm) Qty: 90 RF: 2 metoprolol succinate 25 mg tablet extended release 24 hr 25 mg PO DAILY Qty: 30 RF: 2 No Action cefuroxime axetil 500 mg tablet 500 mg PO BID Qty: 14 RF: 0 acetaminophen 325 mg Tablet 350 mg PO NEEDED RF: 0 gabapentin 600 mg Tablet 1,200 mg PO TID RF: 0 trazodone 50 mg Tablet 25 mg PO NEEDED RF: 0 cetirizine 10 mg Tablet 10 mg PO DAILY RF: 0 methadone 10 mg Tablet 10 mg PO TID RF: 0 phenytoin sodium extended 100 mg Capsule 100 mg PO TID RF: 0 amantadine HCl 100 mg Capsule 100 mg PO BID RF: 0 baclofen 20 mg Tablet 40 mg PO TID RF: 0 ascorbic acid (vitamin C) 250 mg Tablet 500 mg PO BID RF: 0 bisacodyl 10 mg Suppository 10 mg DE DAILY RF: 0 docusate sodium [Colace] 100 mg Capsule 100 mg PO BID RF: 0 amitriptyline 100 mg Tablet 100 mg PO BEDTIME RF: 0 diazepam [Valium] 5 mg Tablet 5 mg PO TID PRN (Reason: Anxiety) RF: 0 senna 8.6 mg Capsule 17.2 mg PO BID RF: 0 tizanidine 4 mg Capsule 8 mg PO TID RF: 0 melatonin 5 mg Tablet 5 mg PO BEDTIME PRN (Reason: Insomnia) RF: 0 metoprolol succinate 25 mg Capsule,Sprinkle,Er 24hr 25 mg PO DAILY RF: 0 Milk of Magnesia 400 mg/5 ml suspension 150 mg PO NEEDED RF: 0 Tecfidera 240 mg PO BID RF: 0 cefuroxime axetil 250 mg tablet 250 mg PO BID Qty: 10 RF: 0 peg 3350-electrolytes [Golytely] 236-22.74-6.74 -5.86 gram recon soln 240 ml PO Q10M 1 Days Qty: 4000 RF: 0 methadone 5 mg tablet 5 mg PO TID Qty: 90 RF: 0 diazepam [Valium] 5 mg tablet 5 mg PO TID PRN (Reason: muscle spasm) Qty: 90 RF: 0 cefuroxime axetil 250 mg tablet 250 mg PO BID 10 Days Qty: 20 RF: 0 doxycycline hyclate 100 mg tablet 100 mg PO BID 10 Days Qty: 20 RF: 0 methadone 10 mg tablet 5 mg PO TID Qty: 90 RF: 0 Referrals: Cristi Zepeda MD [Physician] - 2 days ( it appears that you have an appointment with Dr. Zepeda the urologist on 10/22/2020 please call him to confirm this) Emma Cross MD [Primary Care Provider] - 2 days Interventions: ED Discharge Assessment Last Done: 09/13/20 15:35 Print Language: Cape Verdean
[2020-09-13 16:00] LABS: Appearance Urine TURBID; Color Urine YELLOW; Glucose Urine UA NEG (NEG); Leukocyte Esterase Urine 3+ (NEG); Nitrite Urine POS (NEG); PH 7.5 (5.0-8.0); Specific Gravity - Urine 1.015 (1.005-1.025); UACC Culture Trigger YES; Urine Blood 3+ (NEG); Urine Ketones NEG (NEG); Urine Protein 2+ MG/DL (NEG-TRACE)
[2020-09-13 16:06] LABS: Bacteria Urine TRACE /LPF; Squamous Epithelial Cell Urine TRACE /LPF; Triple Phosphate Crystal Urine TRACE /LPF; WBC Clumps Urine NOTED
[2020-09-13 16:43] VITALS: BP 114/78; PULSE 89; RESP 18; TEMP 36.7; O2SAT 99
== END 2020-09-13 18:02 | disposition home or self-care (01) ==
PROVIDERS: Physician Assistant Medical; Emergency Provider Emergency Medicine Emergency Medical Services; PCP Internal Medicine
DX: Z43.5 Encounter for attention to cystostomy (principal); Z76.0 Encounter for issue of repeat prescription; N31.9 Neuromuscular dysfunction of bladder, unspecified; G35 Multiple sclerosis
CPT/HCPCS: 51705; 81001; 81003; 87086; 87088; 87186; 99283; 99284

== ENCOUNTER 2020-09-22 16:16 | Emergency (ER) | payer MEDICAID, SELFPAY ==
[2020-09-22 16:20] VITALS: BP 125/83; BP 128/82; PULSE 73; PULSE 86; RESP 16; O2SAT 96; O2SAT 97; BMI 30.3
--- NOTE | 2020-09-22 16:25 | ED_ITS ---
HPI - General Adult General Chief complaint: Urogenital-Male Stated complaint: cath problems Time Seen by Provider: 09/22/20 16:38 Source: patient Mode of arrival: ambulatory Limitations: no limitations History of Present Illness HPI narrative: Patient presents to the ED suprapubic Judge catheter issue. As EMS nurse informed them that there was leaking around the 2 going into his diaper. Related Data Home Medications Medication Instructions Recorded Confirmed Milk of Magnesia 150 mg PO NEEDED 04/14/20 04/14/20 Tecfidera 240 mg PO BID 04/14/20 04/14/20 acetaminophen 350 mg PO NEEDED 04/14/20 04/14/20 amantadine HCl 100 mg PO BID 04/14/20 04/14/20 amitriptyline 100 mg PO BEDTIME 04/14/20 04/14/20 ascorbic acid (vitamin C) 500 mg PO BID 04/14/20 04/14/20 baclofen 40 mg PO TID 04/14/20 04/14/20 bisacodyl 10 mg MD DAILY 04/14/20 04/14/20 cetirizine 10 mg PO DAILY 04/14/20 04/14/20 diazepam [Valium] 5 mg PO TID PRN 04/14/20 04/14/20 docusate sodium [Colace] 100 mg PO BID 04/14/20 04/14/20 gabapentin 1,200 mg PO TID 04/14/20 04/14/20 melatonin 5 mg PO BEDTIME PRN 04/14/20 04/14/20 methadone 10 mg PO TID 04/14/20 04/14/20 metoprolol succinate 25 mg PO DAILY 04/14/20 04/14/20 phenytoin sodium extended 100 mg PO TID 04/14/20 04/14/20 senna 17.2 mg PO BID 04/14/20 04/14/20 tizanidine 8 mg PO TID 04/14/20 04/14/20 trazodone 25 mg PO NEEDED 04/14/20 04/14/20 Previous Rx's Medication Instructions Recorded cefuroxime axetil 250 mg PO BID #10 tab 04/15/20 cefuroxime axetil 500 mg PO BID #14 tab 07/07/20 cefuroxime axetil 250 mg PO BID 10 Days #20 tab 08/16/20 diazepam [Valium] 5 mg PO TID PRN #90 tab 08/16/20 doxycycline hyclate 100 mg PO BID 10 Days #20 tab 08/16/20 methadone 5 mg PO TID #90 tab 08/16/20 methadone 5 mg PO TID #90 tab 08/16/20 peg 3350-electrolytes [Golytely] 240 ml PO Q10M 1 Days #4000 ml 08/16/20 diazepam [Valium] 5 mg PO TID PRN #90 tab 09/13/20 methadone 5 mg PO TID #90 tab 09/13/20 methadone 10 mg PO TID #90 tab 09/13/20 metoprolol succinate 25 mg PO DAILY #30 tab 09/13/20 cefuroxime axetil 500 mg PO BID 7 Days #14 tab 09/20/20 cefuroxime axetil 500 mg PO Q12H 7 Days #14 tab 09/22/20 Allergies Allergy/AdvReac Type Severity Reaction Status Date / Time bee pollen [BEE STINGS] Allergy Unknown SWELLING Verified 08/16/20 13:28 bees, hornets, wasps Allergy Unknown anaphylaxis Uncoded 01/20/16 00:00 Review of Systems Review of Systems: Yes all other systems are reviewed and are negative Constitutional: Constitutional: Reports as per HPI and Reports no additional constitutional complaints Eyes: Eyes: Reports as per HPI and Reports no additional eye complaints ENT: Reports system reviewed and no additional complaints, except as documented and Reports as per HPI Cardiovascular: Cardiovascular: Reports as per HPI and Reports no additional cardiovascular complaints Respiratory: Respiratory: Reports as per HPI and Reports no additional respiratory complaints Gastrointestinal: Gastrointestinal: Reports as per HPI and Reports no additional gastrointestinal complaints Musculoskeletal: Musculoskeletal: Reports no additional musculoskeletal complaints and Reports as per HPI Neurologic: Reports system reviewed and no additional complaints, except as documented and Reports as per HPI Psychiatric: Psychiatric: Reports no additional psychiatric complaints and Reports as per HPI PMFSH Past Medical History Medical History Hepatitis C Multiple sclerosis Neuromyopathy Suprapubic catheter UTI (urinary tract infection) Social History Social History Alcohol intake: never Patient Tobacco Use Status: Tobacco use Unknown Advance Directives: Yes Advance Directives on File: Yes Advance Directives Date on File: 04/16/20 service: No Current occupational status: disabled Physical Exam Vital Signs: Vital Signs: Last Vital Signs Pulse 73 09/22/20 16:20 Resp 16 09/22/20 16:20 BP 125/83 09/22/20 16:20 Pulse Ox 97 09/22/20 16:20 Body Mass Index 30.3 Const: General: cooperative, healthy appearing, comfortable, no acute distress, well developed, alert, awake and Physically active Orientation/consciousness: patient oriented x3 HENMT: Head: Yes normal to inspection, Yes No palpable skull fracture present, Yes normocephalic and Yes atraumatic Eyes: General: appearance normal, both eyes and all related structures Neck: Neck: Yes normal visual inspection, Yes full ROM, Yes no lymphadenopathy, Yes no meningeal signs, Yes trachea midline, Yes supple and No tender Chest: Chest palpation & inspection: normal inspection of the chest and normal palpation of entire chest wall Resp: Effort & Inspection: normal respiratory effort and able to speak in complete sentences Auscultation: clear to auscultation bilaterally, no crackles, no rales, no rhonchi and no wheezes Cardio: Jugular venous distension: no JVD Heart sounds: S1 normal heart sound present and S2 normal heart sound present GI: Inspection: Yes normal to inspection and No abdominal wall ecchymosis Palpation (GI): Soft to palpation, not firm, nontender, no guarding and not rigid : General: No CVA tenderness and Yes no CVA tenderness Back/Spine/Pelvis: Back: no CVA tenderness, No CVA tenderness and No back tenderness Skin: General skin exam: no rashes or lesions noted and elasticity normal Neuro: Other: Patient is bedbound General: patient oriented x3, no meningeal signs and CN's II-XI intact bilaterally Extrem: General: Yes normal to inspection and Yes full ROM Psych: Appearance: grossly normal, well kempt and not disheveled Course Course Course Narrative: Bladder scan 226. Once patient's) room will evaluate suprapubic catheter with the stoma. Reevaluation(s) Reevaluation #1: Dr. Jordan was at bedside evaluating patient. Sixteen English Judge catheter was removed. Area around suprapubic catheter was cleaned with Betadine iodine. Lube was placed on 18 size Judge and and the catheter was placed into suprapubic opening. Immediately urine started flowing through the tube. 10 cc normal saline flush was used to blow bag. new Judge is working efficiently. Medical Decision Making MDM Narrative Medical decision making narrative: Suprapubic catheterization Lab Data Labs: Lab Results 09/22/20 Range/Units 16:53 Urine Color YELLOW Urine Appearance CLEAR Urine pH 8.5 H (5.0-8.0) Ur Specific [place] 1.010 (1.005-1.025) Urine Protein TRACE (NEG-TRACE) MG/DL Urine Glucose (UA) NEG (NEG) MG/DL Urine Ketones NEG (NEG) MG/DL Urine Blood 1+ H (NEG) Urine Nitrite POS H (NEG) Ur Leukocyte Esterase TRACE H (NEG) Urine RBC 1-4 (0) /HPF Urine WBC 10-14 H (0-4) /HPF Ur Squamous Epith Cells NONE /LPF Amorphous Sediment 1+ /LPF Urine Bacteria 1+ /LPF Urine Mucus 1+ /LPF Discharge Plan Discharge Clinical Impression: Suprapubic catheter, UTI (urinary tract infection) Patient Disposition: Home, Self-Care Instructions: How to Care for Your Suprapubic Catheter (DC), Catheter- associated Urinary Tract Infection (ED) Additional Instructions: Return to the ED for any Judge malfunction, abdominal pain, abdominal expansion, nausea, vomiting, gross hematuria, fever, chills, or any other concerning symptoms. Prescriptions: New cefuroxime axetil 500 mg tablet 500 mg PO Q12H 7 Days Qty: 14 RF: 0 No Action cefuroxime axetil 500 mg tablet 500 mg PO BID Qty: 14 RF: 0 methadone 10 mg tablet 10 mg PO TID Qty: 90 RF: 0 methadone 5 mg tablet 5 mg PO TID Qty: 90 RF: 0 diazepam [Valium] 5 mg tablet 5 mg PO TID PRN (Reason: muscle spasm) Qty: 90 RF: 2 metoprolol succinate 25 mg tablet extended release 24 hr 25 mg PO DAILY Qty: 30 RF: 2 cefuroxime axetil 500 mg tablet 500 mg PO BID 7 Days Qty: 14 RF: 0 acetaminophen 325 mg Tablet 350 mg PO NEEDED RF: 0 gabapentin 600 mg Tablet 1,200 mg PO TID RF: 0 trazodone 50 mg Tablet 25 mg PO NEEDED RF: 0 cetirizine 10 mg Tablet 10 mg PO DAILY RF: 0 methadone 10 mg Tablet 10 mg PO TID RF: 0 phenytoin sodium extended 100 mg Capsule 100 mg PO TID RF: 0 amantadine HCl 100 mg Capsule 100 mg PO BID RF: 0 baclofen 20 mg Tablet 40 mg PO TID RF: 0 ascorbic acid (vitamin C) 250 mg Tablet 500 mg PO BID RF: 0 bisacodyl 10 mg Suppository 10 mg MD DAILY RF: 0 docusate sodium [Colace] 100 mg Capsule 100 mg PO BID RF: 0 amitriptyline 100 mg Tablet 100 mg PO BEDTIME RF: 0 diazepam [Valium] 5 mg Tablet 5 mg PO TID PRN (Reason: Anxiety) RF: 0 senna 8.6 mg Capsule 17.2 mg PO BID RF: 0 tizanidine 4 mg Capsule 8 mg PO TID RF: 0 melatonin 5 mg Tablet 5 mg PO BEDTIME PRN (Reason: Insomnia) RF: 0 metoprolol succinate 25 mg Capsule,Sprinkle,Er 24hr 25 mg PO DAILY RF: 0 Milk of Magnesia 400 mg/5 ml suspension 150 mg PO NEEDED RF: 0 Tecfidera 240 mg PO BID RF: 0 cefuroxime axetil 250 mg tablet 250 mg PO BID Qty: 10 RF: 0 peg 3350-electrolytes [Golytely] 236-22.74-6.74 -5.86 gram recon soln 240 ml PO Q10M 1 Days Qty: 4000 RF: 0 methadone 5 mg tablet 5 mg PO TID Qty: 90 RF: 0 diazepam [Valium] 5 mg tablet 5 mg PO TID PRN (Reason: muscle spasm) Qty: 90 RF: 0 cefuroxime axetil 250 mg tablet 250 mg PO BID 10 Days Qty: 20 RF: 0 doxycycline hyclate 100 mg tablet 100 mg PO BID 10 Days Qty: 20 RF: 0 methadone 10 mg tablet 5 mg PO TID Qty: 90 RF: 0 Referrals: Cristi Zepeda MD [Physician] - 2 days (Chronic suprapubic judge catheter.) Emma Cross MD [Primary Care Provider] - 2 days (Judge catheter issue resolved. Refer to Urologist. [facility]) Interventions: ED Discharge Assessment Last Done: 09/22/20 17:34 Discharge Date/Time: 09/22/20 17:47 Print Language: Mozambican
[2020-09-22 16:58] LABS: Glucose Urine UA NEG (NEG); Leukocyte Esterase Urine TRACE (NEG); Nitrite Urine POS (NEG); PH 8.5 (5.0-8.0); UACC Culture Trigger YES; Urine Blood 1+ (NEG); Urine Ketones NEG (NEG); Urine Protein TRACE MG/DL (NEG-TRACE)
[2020-09-22 16:59] LABS: Appearance Urine CLEAR; Color Urine YELLOW
[2020-09-22 17:06] LABS: Amorphous Sediment Urine 1+ /LPF; Bacteria Urine 1+ /LPF; Mucus Urine 1+ /LPF
== END 2020-09-22 17:47 | disposition home or self-care (01) ==
PROVIDERS: Physician Assistant; Emergency Provider Internal Medicine; PCP Internal Medicine
DX: T83.030A Leakage of cystostomy catheter, initial encounter (principal); Y84.6 Urinary catheterization as the cause of abnormal reaction of the patient, or of later complication, without mention of misadventure at the time of the procedure; Y92.9 Unspecified place or not applicable; N39.0 Urinary tract infection, site not specified; G35 Multiple sclerosis; Z79.899 Other long term (current) drug therapy
CPT/HCPCS: 51705; 51798; 81001; 81003; 87086; 99283; 99285

== ENCOUNTER 2020-10-30 16:59 | Emergency (ER) | payer MEDICAID, SELFPAY ==
[2020-10-30 17:05] VITALS: BP 118/80; PULSE 94; O2SAT 99
[2020-10-30 17:15] VITALS: BP 108/80; PULSE 90; RESP 18; TEMP 37; O2SAT 100; BMI 23.3
--- NOTE | 2020-10-30 17:18 | ED_ITS ---
HPI - Male Genitourinary General Chief complaint: General Medical <Christina Larios NP - Last Filed: 10/30/20 18:33> Stated complaint: ARMIJO NEEDS TO BE REPLACED,GROUPHOME UNABLE <Christina Larios NP - Last Filed: 10/30/20 18:33> Time Seen by Provider: 10/30/20 17:06 <Christina Larios NP - Last Filed: 10/30/20 18:33> Source: patient, EMS and other ([employer]) <Christina Larios NP - Last Filed: 10/30/20 18:33> Mode of arrival: EMS <Christina Larios NP - Last Filed: 10/30/20 18:33> Limitations: physical limitation <Christina Larios NP - Last Filed: 10/30/20 18:33> History of Present Illness HPI Narrative: 39-year-old male presents via EMS from assisted for Armijo change. [facility] staff are unable to change the Armijo. Patient has no other complaints at this time. <Christina Larios NP - Last Filed: 10/30/20 18:33> Duration: constant <Christina Larios NP - Last Filed: 10/30/20 18:33> Location: abdomen <Christina Larios NP - Last Filed: 10/30/20 18:33> Severity: mild <Christina Larios NP - Last Filed: 10/30/20 18:33> Relieving factors: none <Christina Larios NP - Last Filed: 10/30/20 18:33> Exacerbating factors: none <Christina Larios NP - Last Filed: 10/30/20 18:33> Context: other (Needs new Armijo) <Christina Larios NP - Last Filed: 10/30/20 18:33> Associated symptoms: Reports denies other symptoms <Christina Larios NP - Last Filed: 10/30/20 18:33> Related Data Sexually active: No <Christina Larios NP - Last Filed: 10/30/20 18:33> Home medications: Home Medications Medication Instructions Recorded Confirmed Milk of Magnesia 150 mg PO NEEDED 04/14/20 04/14/20 Tecfidera 240 mg PO BID 04/14/20 04/14/20 acetaminophen 325 mg tablet 350 mg PO NEEDED 04/14/20 04/14/20 amantadine HCl 100 mg capsule 100 mg PO BID 04/14/20 04/14/20 amitriptyline 100 mg tablet 100 mg PO BEDTIME 04/14/20 04/14/20 ascorbic acid (vitamin C) 250 mg 500 mg PO BID 04/14/20 04/14/20 tablet baclofen 20 mg tablet 40 mg PO TID 04/14/20 04/14/20 bisacodyl 10 mg rectal suppository 10 mg DE DAILY 04/14/20 04/14/20 cetirizine 10 mg tablet 10 mg PO DAILY 04/14/20 04/14/20 diazepam 5 mg tablet (Valium) 5 mg PO TID PRN 04/14/20 04/14/20 docusate sodium 100 mg capsule 100 mg PO BID 04/14/20 04/14/20 (Colace) gabapentin 600 mg tablet 1,200 mg PO TID 04/14/20 04/14/20 melatonin 5 mg tablet 5 mg PO BEDTIME PRN 04/14/20 04/14/20 methadone 10 mg tablet 10 mg PO TID 04/14/20 04/14/20 metoprolol succinate 25 mg capsule 25 mg PO DAILY 04/14/20 04/14/20 sprinkle, ext. release 24 hr phenytoin sodium extended 100 mg 100 mg PO TID 04/14/20 04/14/20 capsule sennosides 8.6 mg capsule (senna) 17.2 mg PO BID 04/14/20 04/14/20 tizanidine 4 mg capsule 8 mg PO TID 04/14/20 04/14/20 trazodone 50 mg tablet 25 mg PO NEEDED 04/14/20 04/14/20 Previous Rx's Medication Instructions Recorded cefuroxime axetil 250 mg tablet 250 mg PO BID #10 tab 04/15/20 cefuroxime axetil 500 mg tablet 500 mg PO BID #14 tab 07/07/20 cefuroxime axetil 250 mg tablet 250 mg PO BID 10 Days #20 tab 08/16/20 diazepam 5 mg tablet (Valium) 5 mg PO TID PRN #90 tab 08/16/20 doxycycline hyclate 100 mg tablet 100 mg PO BID 10 Days #20 tab 08/16/20 methadone 10 mg tablet 5 mg PO TID #90 tab 08/16/20 methadone 5 mg tablet 5 mg PO TID #90 tab 08/16/20 peg 3350-electrolytes 236 240 ml PO Q10M 1 Days #4000 ml 08/16/20 gram-22.74 gram-6.74 gram-5.86 gram solution (Golytely) diazepam 5 mg tablet (Valium) 5 mg PO TID PRN #90 tab 09/13/20 methadone 10 mg tablet 10 mg PO TID #90 tab 09/13/20 methadone 5 mg tablet 5 mg PO TID #90 tab 09/13/20 metoprolol succinate 25 mg 25 mg PO DAILY #30 tab 09/13/20 tablet,extended release 24 hr cefuroxime axetil 500 mg tablet 500 mg PO BID 7 Days #14 tab 09/20/20 cefuroxime axetil 500 mg tablet 500 mg PO Q12H 7 Days #14 tab 09/22/20 methadone 10 mg tablet 10 mg PO TID #90 tab 10/08/20 methadone 5 mg tablet 5 mg PO TID #90 tab 10/08/20 levofloxacin 750 mg tablet 750 mg PO DAILY #4 tab 10/30/20 <Christina Larios NP - Last Filed: 10/30/20 18:33> Allergies/Adverse reactions: Allergies Allergy/AdvReac Type Severity Reaction Status Date / Time bee pollen [BEE STINGS] Allergy Unknown SWELLING Verified 08/16/20 13:28 bees, hornets, wasps Allergy Unknown anaphylaxis Uncoded 01/20/16 00:00 <Christina Larios NP - Last Filed: 10/30/20 18:33> Review of Systems Review of Systems: Constitutional: No Fever, No Chills ENT/Mouth: No Ear Pain, No Hoarseness, No sore throat Eyes: No Eye Pain, No Swelling, No Redness, No Foreign Body Cardiovascular: No Chest Pain, No SOB Respiratory: No Cough, No Dyspnea Gastrointestinal: No Nausea, No Vomiting, No Diarrhea, No abdominal Pain Genitourinary: Chronic Armijo catheterization, No Dysuria, No Hematuria Musculoskeletal: No joint pain, No Myalgias, No Joint Swelling Skin: No Skin lacerations, No rash Neuro: No Weakness, No Numbness, No Paresthesias, No Loss of Consciousness, No Dizziness, No Headache Psych: No Anxiety/Panic, No Depression Heme/Lymph: no easy bruising, no Lymphadenopathy Endocrine: No Polyuria, No Polydipsia <Christina Larios NP - Last Filed: 10/30/20 18:33> Yes all other systems are reviewed and are negative <Christina Larios NP - Last Filed: 10/30/20 18:33> [facility] Past Medical History Attestation statement: The following information was validated with the patient. <Christina Larios NP - Last Filed: 10/30/20 18:33> Source: old records reviewed <Christina Larios NP - Last Filed: 10/30/20 18:33> Medical History: Medical History Hepatitis C Multiple sclerosis Neuromyopathy Suprapubic catheter UTI (urinary tract infection) <Christina Larios NP - Last Filed: 10/30/20 18:33> Social History Social History: Social History Alcohol intake: never Patient Tobacco Use Status: Current everyday Tobacco user Use of substances other than those prescribed or required for medical reasons: No Advance Directives: Yes Advance Directives on File: Yes Advance Directives Date on File: 04/16/20 service: No Current occupational status: disabled <Christina Larios NP - Last Filed: 10/30/20 18:33> Physical Exam Vital Signs: Vital Signs: Last Vital Signs Temp 98.6 F 10/30/20 17:15 Pulse 90 10/30/20 17:15 Resp 18 10/30/20 17:15 BP 108/80 10/30/20 17:15 Pulse Ox 100 10/30/20 17:15 Body Mass Index 23.3 <Christina Larios NP - Last Filed: 10/30/20 18:33> Vital Signs: Last Vital Signs Temp 98.6 F 10/30/20 17:15 Pulse 90 10/30/20 17:15 Resp 18 10/30/20 17:15 BP 108/80 10/30/20 17:15 Pulse Ox 100 10/30/20 17:15 Body Mass Index 23.3 <Javi Juarez MD - Last Filed: 10/30/20 21:28> Appearance: Alert. Oriented X3. No acute distress. Eyes: Pupils equal, round and reactive to light. ENT: Pharynx normal. Neck: Normal inspection. Neck supple. CVS: Normal heart rate and rhythm. Pulses normal. Respiratory: No respiratory distress. Breath sounds normal. Abdomen: Soft and nontender. Suprapubic catheter in place. Small amount heme from site consistent with traumatic injury from attempted Armijo replacement. Skin: Skin warm and dry. Normal skin color. Normal skin turgor. Extremities: Neuropathy, extremities are atrophied per baseline. Neuro: No sensory deficit. <Christina Larios NP - Last Filed: 10/30/20 18:33> Course Course Course Narrative: 39-year-old male presents for suprapubic Armijo catheter change. 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 Prepped and draped in sterile fashion. Urinalysis sent for evaluation. Urinalysis positive for nitrates and leukocyte esterase. Will treat with Levaquin 750 mg for the next 5 days. First dose given in the emergency department. <Christina Larios NP - Last Filed: 10/30/20 18:33> MDM - Male Genitourinary MDM Narrative Medical decision making narrative: Suprapubic Armijo catheter changed <Christina Larios NP - Last Filed: 10/30/20 18:33> Differential Diagnosis Differential diagnosis: Likely urinary tract infection <Christina Larios NP - Last Filed: 10/30/20 18:33> Medical Records Attestation: I reviewed the patient's medical records. <Christina Larios NP - Last Filed: 10/30/20 18:33> Lab Data Attestation: I reviewed the patient's lab results. <Christina Larios NP - Last Filed: 10/30/20 18:33> Labs: Lab Results 10/30/20 Range/Units 17:32 Urine Color YELLOW Urine Appearance CLOUDY Urine pH 8.5 H (5.0-8.0) Ur Specific [place] 1.010 (1.005-1.025) Urine Protein 1+ H (NEG-TRACE) MG/DL Urine Glucose (UA) NEG (NEG) MG/DL Urine Ketones NEG (NEG) MG/DL Urine Blood 3+ H (NEG) Urine Nitrite POS H (NEG) Ur Leukocyte Esterase 3+ H (NEG) Urine RBC 76-150 H (0) /HPF Urine WBC TNTC H (0-4) /HPF Ur Squamous Epith Cells NONE /LPF Urine Bacteria 2+ /LPF <Christina Larios NP - Last Filed: 10/30/20 18:33> Lab Results 10/30/20 Range/Units 17:32 Urine Color YELLOW Urine Appearance CLOUDY Urine pH 8.5 H (5.0-8.0) Ur Specific [place] 1.010 (1.005-1.025) Urine Protein 1+ H (NEG-TRACE) MG/DL Urine Glucose (UA) NEG (NEG) MG/DL Urine Ketones NEG (NEG) MG/DL Urine Blood 3+ H (NEG) Urine Nitrite POS H (NEG) Ur Leukocyte Esterase 3+ H (NEG) Urine RBC 76-150 H (0) /HPF Urine WBC TNTC H (0-4) /HPF Ur Squamous Epith Cells NONE /LPF Urine Bacteria 2+ /LPF <Javi Juarez MD - Last Filed: 10/30/20 21:28> Discharge Plan Discharge Clinical Impression: Multiple sclerosis, Chronic indwelling Armijo catheter UTI (urinary tract infection) Qualifiers: Urinary tract infection type: catheter-associated UTI Indwelling urinary catheter type: cystostomy catheter Encounter type: initial encounter Qualified Code(s): T83.510A - Infection and inflammatory reaction due to cystostomy catheter, initial encounter <Christina Larios NP - Last Filed: 10/30/20 18:33> Patient Disposition: Home, Self-Care <Christina Larios NP - Last Filed: 10/30/20 18:33> Instructions: Catheter-associated Urinary Tract Infection (ED) <Christina Larios NP - Last Filed: 10/30/20 18:33> Additional Instructions: You were evaluated for suprapubic Armijo catheter change. We changed this fully without any difficulty, you have an 18 [place], [address] Urinalysis positive for UTI. We prescribed Levaquin 750 mg. We gave you your 1st dose in the emergency department. Please continue this medication for the next 4 days. Drink plenty of fluids. Thank you for choosing this emergency department for evaluation. Please follow-up with primary care physician as needed. Return to the emergency department for any new, concerning, or worsening symptoms. <Christina Larios NP - Last Filed: 10/30/20 18:33> Prescriptions: New levofloxacin 750 mg tablet 750 mg PO DAILY Qty: 4 RF: 0 No Action cefuroxime axetil 500 mg tablet 500 mg PO BID Qty: 14 RF: 0 methadone 10 mg tablet 10 mg PO TID Qty: 90 RF: 0 methadone 5 mg tablet 5 mg PO TID Qty: 90 RF: 0 diazepam [Valium] 5 mg tablet 5 mg PO TID PRN (Reason: muscle spasm) Qty: 90 RF: 2 metoprolol succinate 25 mg tablet extended release 24 hr 25 mg PO DAILY Qty: 30 RF: 2 cefuroxime axetil 500 mg tablet 500 mg PO BID 7 Days Qty: 14 RF: 0 acetaminophen 325 mg Tablet 350 mg PO NEEDED RF: 0 gabapentin 600 mg Tablet 1,200 mg PO TID RF: 0 trazodone 50 mg Tablet 25 mg PO NEEDED RF: 0 cetirizine 10 mg Tablet 10 mg PO DAILY RF: 0 methadone 10 mg Tablet 10 mg PO TID RF: 0 phenytoin sodium extended 100 mg Capsule 100 mg PO TID RF: 0 amantadine HCl 100 mg Capsule 100 mg PO BID RF: 0 baclofen 20 mg Tablet 40 mg PO TID RF: 0 ascorbic acid (vitamin C) 250 mg Tablet 500 mg PO BID RF: 0 bisacodyl 10 mg Suppository 10 mg DE DAILY RF: 0 docusate sodium [Colace] 100 mg Capsule 100 mg PO BID RF: 0 amitriptyline 100 mg Tablet 100 mg PO BEDTIME RF: 0 diazepam [Valium] 5 mg Tablet 5 mg PO TID PRN (Reason: Anxiety) RF: 0 senna 8.6 mg Capsule 17.2 mg PO BID RF: 0 tizanidine 4 mg Capsule 8 mg PO TID RF: 0 melatonin 5 mg Tablet 5 mg PO BEDTIME PRN (Reason: Insomnia) RF: 0 metoprolol succinate 25 mg Capsule,Sprinkle,Er 24hr 25 mg PO DAILY RF: 0 Milk of Magnesia 400 mg/5 ml suspension 150 mg PO NEEDED RF: 0 Tecfidera 240 mg PO BID RF: 0 cefuroxime axetil 250 mg tablet 250 mg PO BID Qty: 10 RF: 0 peg 3350-electrolytes [Golytely] 236-22.74-6.74 -5.86 gram recon soln 240 ml PO Q10M 1 Days Qty: 4000 RF: 0 methadone 5 mg tablet 5 mg PO TID Qty: 90 RF: 0 diazepam [Valium] 5 mg tablet 5 mg PO TID PRN (Reason: muscle spasm) Qty: 90 RF: 0 cefuroxime axetil 250 mg tablet 250 mg PO BID 10 Days Qty: 20 RF: 0 doxycycline hyclate 100 mg tablet 100 mg PO BID 10 Days Qty: 20 RF: 0 methadone 10 mg tablet 5 mg PO TID Qty: 90 RF: 0 cefuroxime axetil 500 mg tablet 500 mg PO Q12H 7 Days Qty: 14 RF: 0 methadone 10 mg tablet 10 mg PO TID Qty: 90 RF: 0 methadone 5 mg tablet 5 mg PO TID Qty: 90 RF: 0 <Christina Larios NP - Last Filed: 10/30/20 18:33> Interventions: ED Discharge Assessment Last Done: 10/30/20 18:28 <Christina Larios NP - Last Filed: 10/30/20 18:33> Discharge Date/Time: 10/30/20 18:29 <Christina Larios NP - Last Filed: 10/30/20 18:33>
[2020-10-30] MEDS: Lidocaine HCl 2 % Urojet 10 ML JEL.PF.APP TOPICAL (17:27)
--- NOTE | 2020-10-30 17:33 | PC.NURSE ---
lewis martinez at bedside changed the suprapubic judge cath, pt tolerated the procedure well
[2020-10-30 17:46] LABS: Glucose Urine UA NEG (NEG); Leukocyte Esterase Urine 3+ (NEG); Nitrite Urine POS (NEG); PH 8.5 (5.0-8.0); UACC Culture Trigger YES; Urine Blood 3+ (NEG); Urine Ketones NEG (NEG)
[2020-10-30 17:49] LABS: Appearance Urine CLOUDY; Color Urine YELLOW; Urine Protein 1+ MG/DL (NEG-TRACE)
[2020-10-30 17:57] LABS: Bacteria Urine 2+ /LPF; WBC Urine TNTC /HPF (0-4)
[2020-10-30] MEDS: levoFLOXacin 750 MG TABLET PO (18:15)
== END 2020-10-30 18:29 | disposition home or self-care (01) ==
PROVIDERS: Nurse Practitioner Family; Emergency Provider Emergency Medicine; PCP Internal Medicine
DX: G35 Multiple sclerosis (principal); T83.510A Infection and inflammatory reaction due to cystostomy catheter, initial encounter; Y73.8 Miscellaneous gastroenterology and urology devices associated with adverse incidents, not elsewhere classified; Y92.9 Unspecified place or not applicable; Z79.899 Other long term (current) drug therapy; F17.200 Nicotine dependence, unspecified, uncomplicated; Z71.6 Tobacco abuse counseling
CPT/HCPCS: 51702; 81001; 87086; 99284

== ENCOUNTER 2020-12-09 09:46 | Outpatient (REF) | payer MEDICAID, SELFPAY ==
[2020-12-09 10:03] LABS: Appearance Urine HAZY; Color Urine YELLOW; Glucose Urine UA NEG (NEG); Leukocyte Esterase Urine 2+ (NEG); Nitrite Urine NEG (NEG); Specific Gravity - Urine 1.025 (1.005-1.025); Urine Blood TRACE (NEG); Urine Ketones NEG (NEG); Urine Protein 1+ MG/DL (NEG-TRACE)
[2020-12-09 10:11] LABS: Bacteria Urine 2+ /LPF; Mucus Urine 1+ /LPF; Squamous Epithelial Cell Urine TRACE /LPF
== END 2020-12-09 09:47 | disposition home or self-care (01) ==
LOC: HO.LNP 09:46
PROVIDERS: Visit Provider Urology
DX: N39.0 Urinary tract infection, site not specified (principal)
CPT/HCPCS: 81001

== ENCOUNTER → 2021-01-09 11:53 | Outpatient (BNVA) | payer MEDICAID, SELFPAY | PROVIDERS: PCP Internal Medicine; Visit Provider Urology | DX: N39.0 Urinary tract infection, site not specified (principal); N31.9 Neuromuscular dysfunction of bladder, unspecified; T83.510A Infection and inflammatory reaction due to cystostomy catheter, initial encounter; G35 Multiple sclerosis; G70.9 Myoneural disorder, unspecified; B19.20 Unspecified viral hepatitis C without hepatic coma; Z72.0 Tobacco use; Z91.030 Bee allergy status; Z99.3 Dependence on wheelchair | CPT/HCPCS: 99212 ==

== ENCOUNTER 2021-01-30 10:20 | Outpatient (REF) | payer MEDICAID, SELFPAY ==
[2021-01-30 10:32] LABS: Appearance Urine CLEAR; Color Urine YELLOW; Glucose Urine UA NEG (NEG); Leukocyte Esterase Urine TRACE (NEG); Nitrite Urine NEG (NEG); PH 7.5 (5.0-8.0); Specific Gravity - Urine 1.015 (1.005-1.025); Urine Blood TRACE (NEG); Urine Ketones NEG (NEG); Urine Protein TRACE MG/DL (NEG-TRACE)
[2021-01-30 11:55] LABS: Amorphous Sediment Urine 3+ /LPF
== END 2021-01-30 10:21 | disposition home or self-care (01) ==
LOC: HO.LNP 10:20
PROVIDERS: Visit Provider Urology
DX: N39.0 Urinary tract infection, site not specified (principal)
CPT/HCPCS: 81001; 87086; 87088; 87186

== ENCOUNTER 2021-03-18 10:26 | Outpatient (REF) | payer MEDICAID, SELFPAY ==
[2021-03-18 14:36] LABS: Appearance Urine CLOUDY; Color Urine YELLOW; Glucose Urine UA NEG (NEG); Leukocyte Esterase Urine 2+ (NEG); Nitrite Urine POS (NEG); PH 7.5 (5.0-8.0); Urine Blood NEG (NEG); Urine Ketones NEG (NEG); Urine Protein NEG (NEG-TRACE)
[2021-03-18 14:51] LABS: Amorphous Sediment Urine 2+ /LPF; Bacteria Urine 2+ /LPF; RBC Urine 0-2 /HPF (0)
== END 2021-03-18 10:27 | disposition home or self-care (01) ==
LOC: HO.LAB 10:26
PROVIDERS: Visit Provider Urology
DX: N31.9 Neuromuscular dysfunction of bladder, unspecified (principal); N39.0 Urinary tract infection, site not specified
CPT/HCPCS: 81001; 87086; 87088; 87186

== ENCOUNTER 2021-04-09 15:46 | Outpatient (REF) | payer MEDICAID, SELFPAY ==
[2021-04-09 16:27] LABS: Appearance Urine CLOUDY; Color Urine YELLOW; Glucose Urine UA NEG (NEG); Leukocyte Esterase Urine 2+ (NEG); Nitrite Urine POS (NEG); Specific Gravity - Urine 1.015 (1.005-1.025); Urine Blood 3+ (NEG); Urine Ketones NEG (NEG); Urine Protein 1+ MG/DL (NEG-TRACE)
[2021-04-09 17:08] LABS: Amorphous Sediment Urine 4+ /LPF; Bacteria Urine 2+ /LPF
== END 2021-04-09 15:47 | disposition home or self-care (01) ==
LOC: HO.LNP 15:46
PROVIDERS: Visit Provider Urology
DX: N39.0 Urinary tract infection, site not specified (principal)
CPT/HCPCS: 81001; 87086; 87088; 87186

== ENCOUNTER 2021-04-30 10:04 | Outpatient (REF) | payer MEDICAID, SELFPAY | END 2021-04-30 10:05 | disposition home or self-care (01) | LOC: HO.LNP 10:04 | PROVIDERS: Visit Provider Urology | DX: N31.9 Neuromuscular dysfunction of bladder, unspecified (principal) | CPT/HCPCS: 87086 ==

== ENCOUNTER → 2021-07-11 11:50 | Outpatient (BNVA) | payer MEDICAID, SELFPAY | PROVIDERS: PCP Internal Medicine; Visit Provider Urology | DX: Z13.89 Encounter for screening for other disorder (principal) ==

== ENCOUNTER 2021-12-27 17:23 | Emergency (ER) | payer MEDICAID, SELFPAY ==
--- NOTE | ~2021-12-27 | XR_ITS ---
EXAMINATION: XR CHEST CLINICAL INFORMATION: Fever COMPARISON: None TECHNIQUE: Frontal view of the chest was obtained. FINDINGS: No significant abnormality is noted involving the heart, lungs, mediastinum, bony thorax or soft tissues. XR/XR chest 1V IMPRESSION: Unremarkable examination.
[2021-12-27 17:31] VITALS: BP 118/81; BP 132/78; PULSE 115; PULSE 120; RESP 16; TEMP 36.8; O2SAT 96; O2SAT 97; BMI 21.8
--- NOTE | 2021-12-27 17:35 | ECG_ITS ---
Test Reason : TACKY Blood Pressure : / mmHG Vent. Rate : 117 BPM Atrial Rate : 117 BPM P-R Int : 154 ms QRS Dur : 084 ms QT Int : 320 ms P-R-T Axes : 066 049 028 degrees QTc Int : 446 ms Sinus tachycardia RSR' or QR pattern in V1 suggests right ventricular conduction delay Possible Left atrial enlargement Intra-ventricular conduction delay Borderline ECG When compared with ECG of 23-AUG-2016 14:11, No significant change was found Referred By: Vita Greenfield Electronically Signed By:BRIAN FREEDMAN MD
--- NOTE | 2021-12-27 17:37 | ED.FEVER ---
HPI - Fever General Chief Complaint: General Medical Stated Complaint: UTI Time Seen by Provider: 12/27/21 17:24 Source: patient, EMS and old records reviewed Mode of arrival: EMS Limitations: no limitations History of Present Illness HPI Narrative: 41-year-old male, wheelchair bound due to end-stage multiple sclerosis, autism, neurogenic bladder with suprapubic catheter, recurrent UTIs who presents to the ER for evaluation of fevers today, increased lethargy for the last 3 days. He was noted to have sediment in his urinary catheter with concern for UTI. Patient was given antipyretics at the [facility] and he was brought to the hospital via EMS for further evaluation. On arrival to the ER patient offers no complaints. He states he is feeling well. intermediate staff states he is at his baseline mentation. MD elicited complaint: fever and malaise Onset (ago): day(s) (3) Exacerbating factors: nothing Relieving factors: acetaminophen Associated symptoms: other (Mcghee catheter with sediment in urine) Treatments prior to arrival fever: acetaminophen Related Data Home Medications Medication Instructions Recorded Confirmed Milk of Magnesia 150 mg PO NEEDED Constipation 04/14/20 04/14/20 Tecfidera 240 mg PO BID 04/14/20 04/14/20 acetaminophen 325 mg tablet 350 mg PO NEEDED Fever/Pain 04/14/20 04/14/20 amantadine HCl 100 mg capsule 100 mg PO BID 04/14/20 04/14/20 amitriptyline 100 mg tablet 100 mg PO BEDTIME 04/14/20 04/14/20 ascorbic acid (vitamin C) 250 mg 500 mg PO BID 04/14/20 04/14/20 tablet baclofen 20 mg tablet 40 mg PO TID 04/14/20 04/14/20 bisacodyl 10 mg rectal suppository 10 mg MT DAILY Constipation 04/14/20 04/14/20 cetirizine 10 mg tablet 10 mg PO DAILY 04/14/20 04/14/20 docusate sodium 100 mg capsule 100 mg PO BID 04/14/20 04/14/20 (Colace) gabapentin 600 mg tablet 1,200 mg PO TID PAIN 04/14/20 04/14/20 melatonin 5 mg tablet 5 mg PO BEDTIME PRN Insomnia 04/14/20 04/14/20 methadone 10 mg tablet 10 mg PO TID Pain 04/14/20 04/14/20 metoprolol succinate 25 mg capsule 25 mg PO DAILY 04/14/20 04/14/20 sprinkle, ext. release 24 hr phenytoin sodium extended 100 mg 100 mg PO TID 04/14/20 04/14/20 capsule sennosides 8.6 mg capsule (senna) 17.2 mg PO BID Constipation 04/14/20 04/14/20 tizanidine 4 mg capsule 8 mg PO TID 04/14/20 04/14/20 trazodone 50 mg tablet 25 mg PO NEEDED INSOMNIA 04/14/20 04/14/20 metoprolol tartrate 50 mg tablet 0 mg PO 01/09/21 Previous Rx's Medication Instructions Recorded methadone 10 mg tablet 5 mg PO TID #90 tabs 08/16/20 methadone 5 mg tablet 5 mg PO TID #90 tabs 08/16/20 peg 3350-electrolytes 236 240 ml PO Q10M Severe constipation 08/16/20 gram-22.74 gram-6.74 gram-5.86 1 day #4,000 mL gram solution (Golytely) methadone 10 mg tablet 10 mg PO TID #90 tabs 09/13/20 methadone 5 mg tablet 5 mg PO TID #90 tabs 09/13/20 metoprolol succinate 25 mg 25 mg PO DAILY hypertension #30 09/13/20 tablet,extended release 24 hr tabs methadone 10 mg tablet 10 mg PO TID For past substance 10/08/20 abuse #90 tabs methadone 5 mg tablet 5 mg PO TID For past substance 10/08/20 abuse #90 tabs levofloxacin 750 mg tablet 750 mg PO DAILY #4 tabs 10/30/20 sulfamethoxazole 800 1 tab PO BID PRN UTI 7 days #14 05/06/21 mg-trimethoprim 160 mg tablet tabs (Bactrim DS) methenamine hippurate 1 gram tablet 1 g PO DAILY 90 days #90 tabs 05/21/21 ascorbic acid (vitamin C) 500 mg 500 mg PO BID 90 days #180 tabs 07/11/21 tablet (Vitamin C) doxycycline monohydrate 100 mg 100 mg PO .COMPLEX 30 days #20 tabs 07/11/21 tablet cefuroxime axetil 250 mg tablet 250 mg PO BID 7 days #14 tabs 12/27/21 Allergies Allergy/AdvReac Type Severity Reaction Status Date / Time bee pollen [BEE STINGS] Allergy Unknown SWELLING Verified 07/11/21 11:52 bees, hornets, wasps Allergy Unknown anaphylaxis Uncoded 01/09/21 12:03 Review of Systems Review of Systems: Constitutional: + Fever, + Chills ENT/Mouth: No sore throat, No Rhinorrhea, No Swallowing Difficulty Eyes: No Eye Pain, No Swelling, No Redness Cardiovascular: No Chest Pain, No SOB, No Orthopnea, No Edema Respiratory: No Cough, No Sputum, No Wheezing, No dyspnea Gastrointestinal: No Nausea, No Vomiting, No Diarrhea, No abdominal Pain, No Hematochezia, No Melena Genitourinary: No Dysuria, No Urinary Frequency, No Hematuria, +Urinary sediment Musculoskeletal: No joint pain, No Myalgias Skin: No Skin Lesions, No rash Neuro: No Weakness, No Numbness, No Dizziness, No Headache Psych: No Anxiety/Panic, No Depression Heme/Lymph: No Bruising, No Lymphadenopathy Endocrine: No Polyuria, No Polydipsia PMFSH Past Medical History Medical History Hepatitis C Multiple sclerosis Neuromyopathy Suprapubic catheter UTI (urinary tract infection) Social History Social History Alcohol intake: never Patient Tobacco Use Status: Current everyday Tobacco user Advance Directives: Yes Advance Directives on File: Yes Advance Directives Date on File: 04/16/20 service: No Current occupational status: disabled Physical Exam Vital Signs: Vital Signs: Last Vital Signs Temp 98.3 F 12/27/21 20:08 Pulse 96 12/27/21 20:08 Resp 14 12/27/21 20:08 BP 111/78 12/27/21 20:08 Pulse Ox 97 12/27/21 20:08 O2 Del Method 12/27/21 20:08 O2 Flow Rate 2 12/27/21 20:08 Oxygen Flow Rate 2 12/27/21 17:31 BMI result Body Mass Index 21.8 Appearance: Alert. Oriented X3. No acute distress. Head/face: Normocephalic atraumatic, face is flushed. Eyes: Pupils equal, round and reactive to light. ENT: Pharynx with poor dentition, moist mucus membranes. Neck: Normal inspection. Neck supple. CVS: Normal heart rate and rhythm. Pulses normal. Respiratory: No respiratory distress. Breath sounds normal. Abdomen: Soft and nontender. +BS x4 suprapubic catheter in place with cloudy urine and sediment present. Skin: Skin very warm warm and dry. Normal skin color. Normal skin turgor. No rashes. Extremities: No lower extremity edema. Neuro: Oriented X 3. Slow to respond with difficult to understand speech, quadriplegic, baseline mental status per [facility] member. Course Course Course Narrative: 41-year-old male, wheelchair bound with MS, neurogenic bladder with suprapubic catheter, recurrent UTIs, seizures, autism who presents to the ER from [facility] via EMS with concern for UTI. On arrival to the ER patient is febrile to 100.9, tachycardic 117. He is most likely septic due to UTI. Review of his cultures he has grown Providencia stuartii which has been sensitive to Rocephin on his most recent cultures from 2020. His 6 most recent UTIs have been strep viridans or Providencia. 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 Will start with coverage with Rocephin. 2L IV fluids, basic labs have been ordered. Patient otherwise stable hemodynamically, will monitor. Sepsis alert called. Dispo pending result in improvement. Reevaluation(s) Reevaluation #1: Normal white count, lactic acid is normal. His tachycardia has resolved with IV fluids and antipyretics. He is tolerating p.o. and feeling well. Suprapubic catheter was changed; urinalysis was sent for analysis. Chest x-ray is pending. Anticipate discharge home with oral antibiotics for presumed UTI Procedures Catheter Insertion (Urinary) Date of insertion: 12/27/21 Time of insertion: 21:14 Reason for placing: Yes Reason for placing indwelling catheter: Other (Multiple sclerosis, neurogenic bladder) Bladder scan/ultrasound used before catheterization: No Antiseptic solution prep: Povidone-Iodine Topical anesthesia used: No Catheter type/location: Suprapubic Size (Estonian): 18 Catheter balloon size (mL): 10 Results: successfully catheterized-immediate flow Procedure performed: without complications MDM - Fever Lab Data Result diagrams: 12/27/21 18:07 12/27/21 18:07 Labs: Lab Results 12/27/21 12/27/21 12/27/21 Range/Units 18:07 18:07 18:07 WBC 10.7 (4.8-10.8) X10*3/uL RBC 4.61 (4.60-5.80) X10*6/uL Hgb 13.6 L (14.0-18.0) g/dl Hct 41.4 L (42.0-52.0) % MCV 89.8 (80.0-98.0) fL MCH 29.5 (27.0-33.0) pg MCHC 32.9 (31.0-36.0) g/dl RDW 11.9 (11.0-16.0) % Plt Count 174 (160-400) X10*3/uL MPV 9.0 L (9.4-12.4) fL Immature Gran % (Auto) 0.3 (0.0-0.4) % Neut % (Auto) 77.3 H (45-73) % Lymph % (Auto) 14.4 L (20-40) % [place] % (Auto) 7.5 (2-11) % Eos % (Auto) 0.2 (0-4) % Baso % (Auto) 0.3 (0-2) % Lymph # (Auto) 1.6 (1.2-4.9) X10*3/uL [place] # (Auto) 0.8 (0.1-1.2) X10*3/uL Eos # (Auto) 0.0 (0.0-0.4) X10*3/uL Baso # (Auto) 0.0 (0.0-0.2) X10*3/uL Abs Immat Gran (auto) 0.03 (0.00-0.03) X10*3/uL Absolute Neuts (auto) 8.3 (2.0-8.3) x10*3/uL Absolute Nucleated RBC 0.000 (0.0-0.012) X10*3/uL Nucleated RBC % (auto) 0.0 (0.0-0.2) /100WBC Sodium 141 (135-145) mmol/L Potassium 4.2 (3.3-5.1) mmol/L Chloride 104 (96-108) mmol/L Carbon Dioxide 28 (22-29) mmol/L Anion Gap 13 (12-20) BUN 11 (9-16) mg/dL Creatinine 0.69 (0.5-1.4) mg/dL Estim Creat Clear Calc 146.6 Estimated GFR > 60 Random Glucose 143 H D (60-115) mg/dL Lactic Acid 0.9 (0.5-2.0) mmol/L Calcium 8.9 D (8.4-10.2) mg/dL Magnesium 1.9 (1.6-2.6) mg/dL Total Bilirubin 0.3 (0.0-1.0) mg/dL Direct Bilirubin < 0.2 (0.0-0.5) mg/dL AST 10 D (5-37) U/L ALT 10 (0-40) U/L Alkaline Phosphatase 88 D (39-117) U/L Total Protein 6.8 (6.5-8.0) g/dL Albumin 3.9 (3.5-5.0) g/dL COVID-19 ([facility]) (Negative) COVID-19 Clin Com 12/27/21 Range/Units 18:07 WBC (4.8-10.8) X10*3/uL RBC (4.60-5.80) X10*6/uL Hgb (14.0-18.0) g/dl Hct (42.0-52.0) % MCV (80.0-98.0) fL MCH (27.0-33.0) pg MCHC (31.0-36.0) g/dl RDW (11.0-16.0) % Plt Count (160-400) X10*3/uL MPV (9.4-12.4) fL Immature Gran % (Auto) (0.0-0.4) % Neut % (Auto) (45-73) % Lymph % (Auto) (20-40) % [place] % (Auto) (2-11) % Eos % (Auto) (0-4) % Baso % (Auto) (0-2) % Lymph # (Auto) (1.2-4.9) X10*3/uL [place] # (Auto) (0.1-1.2) X10*3/uL Eos # (Auto) (0.0-0.4) X10*3/uL Baso # (Auto) (0.0-0.2) X10*3/uL Abs Immat Gran (auto) (0.00-0.03) X10*3/uL Absolute Neuts (auto) (2.0-8.3) x10*3/uL Absolute Nucleated RBC (0.0-0.012) X10*3/uL Nucleated RBC % (auto) (0.0-0.2) /100WBC Sodium (135-145) mmol/L Potassium (3.3-5.1) mmol/L Chloride (96-108) mmol/L Carbon Dioxide (22-29) mmol/L Anion Gap (12-20) BUN (9-16) mg/dL Creatinine (0.5-1.4) mg/dL Estim Creat Clear Calc Estimated GFR Random Glucose (60-115) mg/dL Lactic Acid (0.5-2.0) mmol/L Calcium (8.4-10.2) mg/dL Magnesium (1.6-2.6) mg/dL Total Bilirubin (0.0-1.0) mg/dL Direct Bilirubin (0.0-0.5) mg/dL AST (5-37) U/L ALT (0-40) U/L Alkaline Phosphatase (39-117) U/L Total Protein (6.5-8.0) g/dL Albumin (3.5-5.0) g/dL COVID-19 ([facility]) Negative (Negative) COVID-19 Clin Com See Note Critical Care Time Critical Care Time Critical Care Time: Yes Total Critical Care Time: 35 Attestation: I have personally provided critical care time exclusive of time spent on separately billable procedures. Time includes review of lab data, radiology results, frequent bedside reassessment, and monitoring for potential decompensation. Intervention performed as documented. Discharge Plan Discharge Clinical Impression: UTI (urinary tract infection) Patient Disposition: Home, Self-Care Instructions: Urinary Tract Infection in Men (ED) Additional Instructions: Your lab workup today was normal. You are being treated for UTI with the prescribed antibiotic. Take it starting tomorrow morning. Drink plenty of fluids and stay hydrated. Take motrin and tylenol as needed for fevers. Prescriptions: New cefuroxime axetil 250 mg tablet 250 mg PO BID 7 Days Qty: 14 0RF No Action sulfamethoxazole-trimethoprim [Bactrim DS] 800-160 mg tablet 1 tab PO BID PRN (Reason: UTI) 7 Days Qty: 14 0RF methenamine hippurate 1 gram tablet 1 g PO DAILY 90 Days Qty: 90 3RF methadone 10 mg tablet 10 mg PO TID Qty: 90 0RF Rx Instructions: This patient will not be able to see pain management until November therefore please give 1 refill methadone 5 mg tablet 5 mg PO TID Qty: 90 0RF Rx Instructions: the patient cannot see pain management until November therefore please give 1 refill metoprolol succinate 25 mg tablet extended release 24 hr 25 mg PO DAILY Qty: 30 2RF acetaminophen 325 mg Tablet 350 mg PO NEEDED gabapentin 600 mg Tablet 1,200 mg PO TID trazodone 50 mg Tablet 25 mg PO NEEDED cetirizine 10 mg Tablet 10 mg PO DAILY methadone 10 mg Tablet 10 mg PO TID phenytoin sodium extended 100 mg Capsule 100 mg PO TID amantadine HCl 100 mg Capsule 100 mg PO BID baclofen 20 mg Tablet 40 mg PO TID ascorbic acid (vitamin C) 250 mg Tablet 500 mg PO BID bisacodyl 10 mg Suppository 10 mg MT DAILY docusate sodium [Colace] 100 mg Capsule 100 mg PO BID amitriptyline 100 mg Tablet 100 mg PO BEDTIME senna 8.6 mg Capsule 17.2 mg PO BID tizanidine 4 mg Capsule 8 mg PO TID melatonin 5 mg Tablet 5 mg PO BEDTIME PRN (Reason: Insomnia) metoprolol succinate 25 mg Capsule,Sprinkle,Er 24hr 25 mg PO DAILY Milk of Magnesia 400 mg/5 ml suspension 150 mg PO NEEDED Tecfidera 240 mg PO BID peg 3350-electrolytes [Golytely] 236-22.74-6.74 -5.86 gram recon soln 240 ml PO Q10M 1 Days Qty: 4000 0RF Rx Instructions: until fecal effluent is clear methadone 5 mg tablet 5 mg PO TID Qty: 90 0RF methadone 10 mg tablet 5 mg PO TID Qty: 90 0RF methadone 10 mg tablet 10 mg PO TID Qty: 90 0RF methadone 5 mg tablet 5 mg PO TID Qty: 90 0RF levofloxacin 750 mg tablet 750 mg PO DAILY Qty: 4 0RF Rx Instructions: Start on 10/31/2020. Please give medication that can be crushed. Crush medications per patient's medication protocol. metoprolol tartrate 50 mg tablet 0 mg PO ascorbic acid (vitamin C) [Vitamin C] 500 mg tablet 500 mg PO BID 90 Days Qty: 180 1RF doxycycline monohydrate 100 mg tablet 100 mg PO .COMPLEX 30 Days Qty: 20 1RF Rx Instructions: 100 mg PO On day of catheter change; 1 tab before cath change and 1 tab after cath change;
[2021-12-27] MEDS: cefTRIAXone sodium 1 GM in 0.9 % Sodium Chloride 50 ML IV (18:10)
[2021-12-27] MEDS: Acetaminophen 325 MG TABLET 975 MG PO (18:10)
[2021-12-27] MEDS: 0.9 % Sodium Chloride 1,000 ML 999 ML IVCONT ×2 (18:11→20:05)
[2021-12-27 18:12] LABS: MANUAL DIFF FLAG NO
[2021-12-27 18:14] LABS: Basophils Percent Auto 0.3 % (0-2); Eosinophils Percent Auto 0.2 % (0-4); Hematocrit 41.4 % (42.0-52.0); Hemoglobin 13.6 g/dl (14.0-18.0); Imm Gran Abs Auto 0.03 X10*3/uL (0.00-0.03); Imm Gran Pct Auto 0.3 % (0.0-0.4); Lymphocytes Absolute Auto 1.6 X10*3/uL (1.2-4.9); Lymphocytes Percent Auto 14.4 % (20-40); Mean Corpuscular HGB Conc 32.9 g/dl (31.0-36.0); Mean Corpuscular Hemoglobin 29.5 pg (27.0-33.0); Mean Corpuscular Volume 89.8 fL (80.0-98.0); Monocytes Absolute Auto 0.8 X10*3/uL (0.1-1.2); Monocytes Percent Auto 7.5 % (2-11); Neutrophils Absolute Auto 8.3 x10*3/uL (2.0-8.3); Neutrophils Percent Auto 77.3 % (45-73); Platelet Count 174 X10*3/uL (160-400); Red Blood Count 4.61 X10*6/uL (4.60-5.80); Red Cell Distribution Width 11.9 % (11.0-16.0); White Blood Count 10.7 X10*3/uL (4.8-10.8)
[2021-12-27 18:26] LABS: Lactic Acid 0.9 mmol/L (0.5-2.0)
[2021-12-27 18:30] LABS: Alanine Aminotransferase 10 U/L (0-40); Albumin Level 3.9 g/dL (3.5-5.0); Alkaline Phosphatase 88 U/L (39-117); Anion Gap 13 (12-20); Aspartate Amino Transferase 10 U/L (5-37); Bilirubin Direct < 0.2 mg/dL (0.0-0.5); Bilirubin Total 0.3 mg/dL (0.0-1.0); Blood Urea Nitrogen 11 mg/dL (9-16); Calcium 8.9 mg/dL (8.4-10.2); Carbon Dioxide 28 mmol/L (22-29); Chloride 104 mmol/L (96-108); Creatinine Clr Calc Pharmacy 146.6; Estimated Glomerular Filt Rate > 60; Glucose Random 143 mg/dL (60-115); Magnesium 1.9 mg/dL (1.6-2.6); Potassium 4.2 mmol/L (3.3-5.1); Sodium 141 mmol/L (135-145); Total Protein 6.8 g/dL (6.5-8.0)
[2021-12-27 18:38] LABS: COVID-19 Test Negative (Negative)
[2021-12-27 19:41] VITALS: BP 108/76; PULSE 99; RESP 14; O2SAT 98
[2021-12-27 20:08] VITALS: BP 111/78; PULSE 96; RESP 14; TEMP 36.8; O2SAT 97
[2021-12-27 21:41] LABS: Appearance Urine Cloudy; Color Urine Yellow; Glucose Urine UA Negative (Negative); Leukocyte Esterase Urine Large (3+) (Negative); Nitrite Urine Negative (Negative); PH 5.5 (5.0-9.0); Specific Gravity - Urine 1.015 (1.005-1.025); UMIC TRIGGER UACC YES; Urine Blood Large (3+) (Negative); Urine Ketones Negative (Negative); Urine Protein Negative (Neg-Trace)
[2021-12-27 22:21] VITALS: BP 131/83; PULSE 99; RESP 13; TEMP 36.9; O2SAT 98
[2021-12-27 22:22] LABS: Bacteria Urine 1+ (None Seen); Granular Casts Urine Present; Hyaline Casts Urine 0-2 /LPF (0-2); RBC Urine >20 /HPF (0-2); Squamous Epithelial Cell Urine 0-2 /HPF (0-2); UACC Culture Trigger YES; WBC Urine >50 /HPF (0-5)
[2021-12-28 00:25] VITALS: BP 133/81; PULSE 110; RESP 14; TEMP 37.3; O2SAT 98
--- NOTE | 2021-12-28 01:29 | PC.NURSE ---
pt has been changed over to a hospital bed with pillows for heals, elbows elevated for skin protection against breakdown. pt skin is intact no open or redness noted at this time. care home sitter present and left after pt was settled in for the night.
[2021-12-28 02:00] VITALS: BP 133/78; PULSE 109; RESP 13; TEMP 37.2; O2SAT 98
--- NOTE | 2021-12-28 02:02 | PC.NURSE ---
PT CHECKED FOR INCONTINENCE. PT DRY. PT REPOSITIONED TO THE LEFT SIDE. CALL BED PLACED WITHIN REACH. PT RESTING QUIETLY WITH WARM BLANKET
[2021-12-28 03:55] VITALS: BP 117/80; PULSE 112; RESP 105; TEMP 37.2; O2SAT 99
[2021-12-28 05:31] VITALS: BP 127/79; PULSE 105; RESP 11; TEMP 36.6; O2SAT 98
[2021-12-28 07:54] VITALS: BP 112/66; PULSE 115; RESP 14; TEMP 37.3; O2SAT 94
--- NOTE | 2021-12-28 08:11 | PC.NURSE ---
Pyxis did not allow me to waste gabapentin that needed to be split. Charge notified.
--- NOTE | 2021-12-28 08:11 | PC.NURSE ---
Provider made aware of patients HR
[2021-12-28] MEDS: Gabapentin 600 MG TABLET 900 MG PO (08:12)
[2021-12-28] MEDS: Loratadine 10 MG TABLET PO (08:12)
[2021-12-28] MEDS: Sennosides 8.6 MG TABLET 17.2 MG PO (08:12)
[2021-12-28] MEDS: Baclofen 20 MG TABLET PO (08:13)
[2021-12-28] MEDS: Metoprolol Succinate ER 25 MG TAB.ER.24H PO (08:13)
[2021-12-28] MEDS: diazePAM 5 MG TABLET PO (08:13)
[2021-12-28] MEDS: Phenytoin Sodium Extended 100 MG CAPSULE PO (08:13)
== END 2021-12-28 09:34 | disposition home or self-care (01) ==
PROVIDERS: Physician Assistant; Emergency Provider Student in an Organized Health Care Education/Training Program
DX: N39.0 Urinary tract infection, site not specified (principal); R50.9 Fever, unspecified; R00.0 Tachycardia, unspecified; Z20.822 Contact with and (suspected) exposure to COVID-19; G35 Multiple sclerosis; F11.20 Opioid dependence, uncomplicated; F17.200 Nicotine dependence, unspecified, uncomplicated; Z46.6 Encounter for fitting and adjustment of urinary device
CPT/HCPCS: 51702; 71045; 80048; 80076; 81001; 83605; 83735; 85025; 87040; 87086; 87635; 93005; 96361; 96365; 96366; 99284; 99285; J0696

== ENCOUNTER 2022-02-20 17:19 | Emergency (ER) | payer MEDICAID, SELFPAY ==
--- NOTE | 2022-02-20 17:22 | ED.MALEGU ---
HPI - Male Genitourinary General Chief complaint: Urogenital-Male Stated complaint: Urinary Retention Time Seen by Provider: 02/20/22 17:22 Source: patient, EMS and other (House staff) Mode of arrival: EMS Limitations: physical limitation (Multiple sclerosis, contractured extremities per baseline) History of Present Illness HPI Narrative: 41-year-old male from a skilled nursing, presents via EMS for blocked suprapubic Mcghee. Patient has a neurogenic bladder, multiple sclerosis, is wheelchair dependent, with suspected academic impairment but is able to make his needs known. The skilled nursing staff states that he usually gets his Mcghee catheter changed every 3 weeks, but noted that there was an increase in sediment. They also report that patient has not been drinking as much as he normally does and had low volume output. Patient is not expressing any indication of pain. Onset (ago): day(s) (1) Associated symptoms: Reports urinary retention Related Data Sexually active: No Home Medications Medication Instructions Recorded Confirmed Milk of Magnesia 150 mg PO NEEDED Constipation 04/14/20 01/08/22 Tecfidera 240 mg PO BID 04/14/20 01/08/22 acetaminophen 325 mg tablet 350 mg PO NEEDED Fever/Pain 04/14/20 01/08/22 amantadine HCl 100 mg capsule 100 mg PO BID 04/14/20 01/08/22 amitriptyline 100 mg tablet 100 mg PO BEDTIME 04/14/20 01/08/22 baclofen 20 mg tablet 20 mg PO TID 04/14/20 01/08/22 bisacodyl 10 mg rectal suppository 10 mg [place] DAILY Constipation 04/14/20 01/08/22 cetirizine 10 mg tablet 10 mg PO DAILY 04/14/20 01/08/22 docusate sodium 100 mg capsule 100 mg PO BID 04/14/20 01/08/22 (Colace) gabapentin 600 mg tablet 900 mg PO TID PAIN 04/14/20 01/08/22 metoprolol succinate 25 mg capsule 25 mg PO DAILY 04/14/20 01/08/22 sprinkle, ext. release 24 hr phenytoin sodium extended 100 mg 100 mg PO DAILY 04/14/20 01/08/22 capsule sennosides 8.6 mg capsule (senna) 17.2 mg PO BID Constipation 04/14/20 01/08/22 tizanidine 4 mg capsule 8 mg PO TID 04/14/20 01/08/22 trazodone 50 mg tablet 25 mg PO NEEDED INSOMNIA 04/14/20 01/08/22 metoprolol tartrate 50 mg tablet 0 mg PO 01/09/21 01/08/22 diazepam 5 mg tablet 1 tab PO BID 12/27/21 01/08/22 Previous Rx's Medication Instructions Recorded peg 3350-electrolytes 236 240 ml PO Q10M Severe constipation 08/16/20 gram-22.74 gram-6.74 gram-5.86 1 day #4,000 mL gram solution (Golytely) methadone 5 mg tablet 5 mg PO TID #90 tabs 09/13/20 metoprolol succinate 25 mg 25 mg PO DAILY hypertension #30 09/13/20 tablet,extended release 24 hr tabs methadone 10 mg tablet 10 mg PO TID For past substance 10/08/20 abuse #90 tabs sulfamethoxazole 800 1 tab PO BID PRN UTI 7 days #14 05/06/21 mg-trimethoprim 160 mg tablet tabs (Bactrim DS) ascorbic acid (vitamin C) 500 mg 500 mg PO BID 90 days #180 tabs 01/08/22 tablet (Vitamin C) doxycycline monohydrate 100 mg 100 mg PO .COMPLEX 30 days #40 tabs 01/08/22 tablet methenamine hippurate 1 gram tablet 1 g PO DAILY 90 days #90 tabs 01/08/22 Allergies Allergy/AdvReac Type Severity Reaction Status Date / Time bee pollen [BEE STINGS] Allergy Unknown SWELLING Verified 01/07/22 16:19 bees, hornets, wasps Allergy Unknown anaphylaxis Uncoded 01/07/22 16:19 Review of Systems Review of Systems: Constitutional: No Fever, No Chills Cardiovascular: No Chest Pain, No SOB Respiratory: No Cough, No Dyspnea Gastrointestinal: No Nausea, No Vomiting, No Diarrhea, No abdominal Pain Genitourinary: Block suprapubic Mcghee, No Dysuria, No Hematuria Musculoskeletal: No joint pain, No Myalgias, No Joint Swelling Skin: No Skin lacerations, No rash Yes all other systems are reviewed and are negative PMFSH Past Medical History Attestation statement: The following information was validated with the patient. Source: old records reviewed Medical History Hepatitis C Multiple sclerosis Neuromyopathy Suprapubic catheter UTI (urinary tract infection) Social History Social History Alcohol intake: never Patient Tobacco Use Status: Current everyday Tobacco user Advance Directives: Yes Advance Directives on File: Yes Advance Directives Date on File: 04/16/20 service: No Current occupational status: disabled Physical Exam Vital Signs: Vital Signs: Last Vital Signs Temp 97.7 F 02/20/22 21:53 Pulse 72 02/20/22 21:53 Resp 16 02/20/22 21:53 BP 126/70 02/20/22 21:53 Pulse Ox 98 02/20/22 21:53 O2 Del Method 02/20/22 21:53 BMI result Body Mass Index 26.4 Appearance: Alert. No acute distress. Eyes: Pupils equal, round and reactive to light. ENT: Pharynx normal. Neck: Normal inspection. Neck supple. CVS: Normal heart rate and rhythm. Pulses normal. Respiratory: No respiratory distress. Breath sounds normal. Abdomen: Soft and nontender. Suprapubic Mcghee stoma clean no indication of infection at stoma site. Skin: Skin warm and dry. Normal skin color. Normal skin turgor. Extremities: Extremities are contractured. Neuro: No motor deficit. No sensory deficit. Cranial nerves intact. Course Course Course Narrative: 41-year-old male presents via EMS from a skilled nursing has a chronic Mcghee suprapubic cath. Catheter has been occluded over the past day. 17:[address] Zepeda, plan is for IV doxycycline, 1 L of fluid and Mcghee catheter change. Urinalysis will be positive as patient is colonized, discussion with group manager, manage agrees to plan as this is been their standard of practice for over year. 18:00 Mcghee catheter changed to 18 [place] with balloon inflated with 10 mL. Mcghee cath change without difficulty by this [employer]. Clear urine with sediment noted. 19:33 fluid infusion complete. Plan of care is to discharge home. House staff with patient. Consultations Consultation #1: Duane Time: 17:45 Medications Administered Discontinued Medications Generic Name Dose Route Start Last Admin Trade Name Freq PRN Reason Stop Dose Admin Sodium Chloride 1,000 mls @ 999 mls/hr 02/20/22 17:45 02/20/22 19:26 Ns IVCONT 02/20/22 18:45 Infused .Q1H1M LARA Infusion Doxycycline Hyclate 100 mg/ 250 mls @ 166.67 mls/hr 02/20/22 17:44 02/20/22 20:00 Sodium Chloride IV 02/20/22 19:13 Infused ONCE ONE Infusion Lidocaine HCl 10 ml 02/20/22 17:31 02/20/22 18:20 Lidocaine Hcl 2 % Urojet 10 Ml Jel.Pf.Coy TOPICAL 02/20/22 17:32 10 ml ONCE ONE Administration Medical Decision Making Medical Decision Making Differential Diagnoses: Differential diagnosis (Suprapubic Mcghee cath occlusion) Consideration of admission/observation: Consideration of Admission/Observation (Patient does not require admission) Discussion of management with other physician/healthcare provider/other source (e.g., hospitalist, teamcenter consultant, behavioral health): Discussion w/other physician/healthcare provider (Dr. Zepeda) Management of the patient was discussed with: Gta My interpretation is Independent historian (e.g., spouse, EMS, friend): Independent historian (e.g., spouse, EMS, friend) Tests considered but not performed: Tests Considered But Not Performed (CT scan abdomen pelvis, not indicated as patient is producing urine with Mcghee catheter change.) Chronic conditions affecting care (e.g., diabetes, HTN): Chronic conditions affecting care (e.g., diabetes, HTN) (Multiple sclerosis, suspected academic impairment, neurogenic bladder) Discharge Plan Discharge Clinical Impression: Dehydration, Blocked suprapubic catheter Patient Disposition: Home, Self-Care Instructions: Dehydration (ED), Mcghee Catheter Placement and Care (ED) Additional Instructions: We changed your suprapubic catheter. We gave you IV doxycycline 100 mg and 1000 mL of IV fluids. Total amount of fluid equals 1250 ml. Please follow-up with Dr. Zepeda as scheduled. Thank you for choosing this emergency department for evaluation. Please follow-up with primary care physician as needed. Return to the emergency department for any new, concerning, or worsening symptoms. Prescriptions: No Action sulfamethoxazole-trimethoprim [Bactrim DS] 800-160 mg tablet 1 tab PO BID PRN (Reason: UTI) 7 Days Qty: 14 0RF methadone 5 mg tablet 5 mg PO TID Qty: 90 0RF Rx Instructions: the patient cannot see pain management until November therefore please give 1 refill metoprolol succinate 25 mg tablet extended release 24 hr 25 mg PO DAILY Qty: 30 2RF acetaminophen 325 mg Tablet 350 mg PO NEEDED gabapentin 600 mg Tablet 900 mg PO TID trazodone 50 mg Tablet 25 mg PO NEEDED cetirizine 10 mg Tablet 10 mg PO DAILY phenytoin sodium extended 100 mg Capsule 100 mg PO DAILY amantadine HCl 100 mg Capsule 100 mg PO BID baclofen 20 mg Tablet 20 mg PO TID bisacodyl 10 mg Suppository 10 mg [place] DAILY docusate sodium [Colace] 100 mg Capsule 100 mg PO BID amitriptyline 100 mg Tablet 100 mg PO BEDTIME senna 8.6 mg Capsule 17.2 mg PO BID tizanidine 4 mg Capsule 8 mg PO TID metoprolol succinate 25 mg Capsule,Sprinkle,Er 24hr 25 mg PO DAILY Milk of Magnesia 400 mg/5 ml suspension 150 mg PO NEEDED Tecfidera 240 mg PO BID peg 3350-electrolytes [Golytely] 236-22.74-6.74 -5.86 gram recon soln 240 ml PO Q10M 1 Days Qty: 4000 0RF Rx Instructions: until fecal effluent is clear methadone 10 mg tablet 10 mg PO TID Qty: 90 0RF diazepam 5 mg tablet 1 tab PO BID metoprolol tartrate 50 mg tablet 0 mg PO ascorbic acid (vitamin C) [Vitamin C] 500 mg tablet 500 mg PO BID 90 Days Qty: 180 1RF doxycycline monohydrate 100 mg tablet 100 mg PO .COMPLEX 30 Days Qty: 40 1RF Rx Instructions: 100 mg PO On day of catheter change; 1 tab before cath change and 1 tab after cath change; methenamine hippurate 1 gram tablet 1 g PO DAILY 90 Days Qty: 90 1RF Referrals: Cristi Zepeda MD [Physician] - 3 days (As needed) Interventions: ED Discharge Assessment Last Done: 02/21/22 00:00 Discharge Date/Time: 02/21/22 00:03
[2022-02-20 18:17] VITALS: BP 121/68; BP 124/74; PULSE 81; PULSE 88; RESP 16; TEMP 37.2; O2SAT 99; BMI 26.4
[2022-02-20] MEDS: 0.9 % Sodium Chloride 1,000 ML 999 ML IVCONT (18:20)
[2022-02-20] MEDS: Lidocaine HCl 2 % Urojet 10 ML JEL.PF.APP TOPICAL (18:20)
[2022-02-20] MEDS: Doxycycline Hyclate 100 MG in 0.9 % Sodium Chloride 250 ML 166.67 MG IV (18:20)
--- NOTE | 2022-02-20 18:53 | PC.NURSE ---
pt tolerated catheter changed well, reports no pain. This RN placed 20g IV cath in LAC and administered medications per MAR
[2022-02-20 19:09] VITALS: BP 121/81; PULSE 89; RESP 16; TEMP 36.3; O2SAT 97
--- NOTE | 2022-02-20 19:41 | PC.NURSE ---
Boo called at 1941 for a bls transfer back to custodial.ETA within the hour.RN aware
--- NOTE | 2022-02-20 19:44 | PC.NURSE ---
Pt IV removed, fluids have been completed. awaiting ambulance transfer back to [facility]
[2022-02-20 20:00] VITALS: BP 133/80; PULSE 86; RESP 16; TEMP 36.7; O2SAT 95
[2022-02-20 21:53] VITALS: BP 126/70; PULSE 72; RESP 16; TEMP 36.5; O2SAT 98
== END 2022-02-21 00:03 | disposition home or self-care (01) ==
PROVIDERS: Emergency Provider Emergency Medicine; PCP Internal Medicine
DX: R33.9 Retention of urine, unspecified (principal); E86.0 Dehydration; T83.028A Displacement of other urinary catheter, initial encounter; Y73.2 Prosthetic and other implants, materials and accessory gastroenterology and urology devices associated with adverse incidents; Y92.9 Unspecified place or not applicable; F17.200 Nicotine dependence, unspecified, uncomplicated; Z71.6 Tobacco abuse counseling; Z79.899 Other long term (current) drug therapy
CPT/HCPCS: 96361; 96365; 99283; 99284

== ENCOUNTER → 2022-07-09 09:05 | Outpatient (BNVA) | payer MEDICAID, SELFPAY | PROVIDERS: PCP Internal Medicine; Visit Provider Urology ==

== ENCOUNTER 2022-08-28 17:12 | Emergency (ER) | payer OTHER, SELFPAY ==
--- NOTE | ~2022-08-28 | XR_ITS ---
EXAMINATION: XR CHEST CLINICAL INFORMATION: Cough COMPARISON: Chest x-ray 12/27/2021 TECHNIQUE: Frontal portable view of the chest was obtained. 5:57 PM FINDINGS: No significant abnormality is noted involving the heart, lungs, mediastinum, bony thorax or soft tissues. XR/XR chest 1V IMPRESSION: Unremarkable examination.
[2022-08-28 17:25] VITALS: BP 123/84; BP 150/100; PULSE 109; PULSE 121; RESP 18; TEMP 36.9; O2SAT 94; O2SAT 95
[2022-08-28 17:47] VITALS: TEMP 37.9
--- NOTE | 2022-08-28 18:42 | ED_ITS ---
HPI - Male Genitourinary General Chief complaint: Urogenital-Male Stated complaint: possible infection, per ems Time Seen by Provider: 08/28/22 17:30 Source: patient and other Mode of arrival: EMS History of Present Illness HPI Narrative: 41-year-old male with MS and has a suprapubic catheter and lives in a fci and is arriving via ambulance for concerns about inability to replace the suprapubic catheter by the healthcare professionals come in to see the patient. There is also some concern about blisters along the PIPs of the left hand. Related Data Home Medications Medication Instructions Recorded Confirmed Milk of Magnesia 150 mg PO NEEDED Constipation 04/14/20 01/08/22 Tecfidera 240 mg PO BID 04/14/20 01/08/22 acetaminophen 325 mg tablet 350 mg PO NEEDED Fever/Pain 04/14/20 01/08/22 amantadine HCl 100 mg capsule 100 mg PO BID 04/14/20 01/08/22 amitriptyline 100 mg tablet 100 mg PO BEDTIME 04/14/20 01/08/22 baclofen 20 mg tablet 20 mg PO TID 04/14/20 01/08/22 bisacodyl 10 mg rectal suppository 10 mg [place] DAILY Constipation 04/14/20 01/08/22 cetirizine 10 mg tablet 10 mg PO DAILY 04/14/20 01/08/22 docusate sodium 100 mg capsule 100 mg PO BID 04/14/20 01/08/22 (Colace) gabapentin 600 mg tablet 900 mg PO TID PAIN 04/14/20 01/08/22 metoprolol succinate 25 mg capsule 25 mg PO DAILY 04/14/20 01/08/22 sprinkle, ext. release 24 hr phenytoin sodium extended 100 mg 100 mg PO DAILY 04/14/20 01/08/22 capsule sennosides 8.6 mg capsule (senna) 17.2 mg PO BID Constipation 04/14/20 01/08/22 tizanidine 4 mg capsule 8 mg PO TID 04/14/20 01/08/22 trazodone 50 mg tablet 25 mg PO NEEDED INSOMNIA 04/14/20 01/08/22 metoprolol tartrate 50 mg tablet 0 mg PO 01/09/21 01/08/22 diazepam 5 mg tablet 1 tab PO BID 12/27/21 01/08/22 baclofen 10 mg tablet mg PO 07/09/22 loratadine 10 mg tablet 10 mg PO DAILY 07/09/22 melatonin 5 mg tablet 5 mg PO BEDTIME 07/09/22 phenytoin 50 mg chewable tablet 50 mg PO BID 07/09/22 polyethylene glycol 3350 17 g PO 07/09/22 gram/dose oral powder sennosides 8.6 mg tablet (senna) 17.2 mg PO BID 07/09/22 Previous Rx's Medication Instructions Recorded peg 3350-electrolytes 236 240 ml PO Q10M Severe constipation 08/16/20 gram-22.74 gram-6.74 gram-5.86 1 day #4,000 mL gram solution (Golytely) methadone 5 mg tablet 5 mg PO TID #90 tabs 09/13/20 metoprolol succinate 25 mg 25 mg PO DAILY hypertension #30 09/13/20 tablet,extended release 24 hr tabs methadone 10 mg tablet 10 mg PO TID For past substance 10/08/20 abuse #90 tabs sulfamethoxazole 800 1 tab PO BID PRN UTI 7 days #14 05/06/21 mg-trimethoprim 160 mg tablet tabs (Bactrim DS) ascorbic acid (vitamin C) 500 mg 500 mg PO BID 90 days #180 tabs 07/09/22 tablet (Vitamin C) doxycycline monohydrate 100 mg 100 mg PO .COMPLEX 30 days #40 tabs 07/09/22 tablet methenamine hippurate 1 gram tablet 1 g PO DAILY 90 days #90 tabs 07/09/22 cefdinir 300 mg capsule 300 mg PO BID 10 days #20 caps 08/28/22 Allergies Allergy/AdvReac Type Severity Reaction Status Date / Time bee pollen [BEE STINGS] Allergy Unknown SWELLING Verified 07/09/22 09:09 bees, hornets, wasps Allergy Unknown anaphylaxis Uncoded 07/09/22 09:09 Review of Systems Review of Systems: Pertinent positives and negatives as stated in [facility] Past Medical History Source: nursing notes reviewed Medical History Hepatitis C Multiple sclerosis Neuromyopathy Suprapubic catheter UTI (urinary tract infection) Social History Social History Alcohol intake: never Patient Tobacco Use Status: Current everyday Tobacco user Smoked in Last 30 Days: No Use of substances other than those prescribed or required for medical reasons: No Advance Directives: Yes Advance Directives on File: Yes Advance Directives Date on File: 04/16/20 service: No Current occupational status: disabled Physical Exam Vital Signs: Vital Signs: Last Vital Signs Temp 100.3 F 08/28/22 17:47 Pulse 121 H 08/28/22 17:25 Resp 18 08/28/22 17:25 BP 123/84 08/28/22 17:25 Pulse Ox 95 08/28/22 17:25 O2 Del Method Room Air 08/28/22 17:25 BMI result Body Mass Index 20.0 VITAL SIGNS: Reviewed. GENERAL: Chronically ill, in no acute distress. HEAD: Normocephalic/atraumatic EYES: PERRLA, EOMI EARS: Ext canals without abnormality NOSE: Nares patent bilateral OROPHARYNX: no oral lesions noted, posterior pharynx clear NECK: Supple, no adenopathy LUNGS: Normal breath sounds. No adventitious sounds or accessory muscle use. SpO2<95> CARDIOVASCULAR: Regular rate and rhythm without noted murmurs ABDOMEN: Soft, non-tender, non-distended with bowel sounds, suprapubic location without surrounding erythema or bleeding or induration noted.. MUSCULOSKELETAL: No tenderness, deformities, or effusions noted on gross inspection. EXTREMITIES: No cyanosis, clubbing or edema; there are vesicles noted at the PIP ease of fingers on left hand but not present on the right, they are directly over the knuckle and do not appear to be located anywhere else. SKIN: Inspection of the skin reveals no rashes NEUROLOGIC: Alert and oriented x 2. Patient is stiff Medical Decision Making Medical Decision Making MDM Narrative: 41-year-old male with history and clinical presentation concerning for possible recurrence of UTI. I reviewed all investigations and my interpretation is that patient has a UTI, he received 1 g of Rocephin will be discharged on remaining course of ant ibiotics. Differential Diagnosis Please see the discussion above Lab Data Please see the discussion above 08/28/22 18:44 08/28/22 18:44 Labs: Lab Results 08/28/22 08/28/22 08/28/22 Range/Units 18:44 18:44 18:44 WBC 9.8 (4.8-10.8) X10*3/uL RBC 4.83 (4.60-5.80) X10*6/uL Hgb 14.4 (14.0-18.0) g/dl Hct 43.7 (42.0-52.0) % MCV 90.5 (80.0-98.0) fL MCH 29.8 (27.0-33.0) pg MCHC 33.0 (31.0-36.0) g/dl RDW 11.7 (11.0-16.0) % Plt Count 170 (160-400) X10*3/uL MPV 9.5 (9.4-12.4) fL Immature Gran % (Auto) 0.2 (0.0-0.4) % Neut % (Auto) 86.5 H (45-73) % Lymph % (Auto) 7.6 L (20-40) % [place] % (Auto) 5.4 (2-11) % Eos % (Auto) 0.2 (0-4) % Baso % (Auto) 0.1 (0-2) % Lymph # (Auto) 0.7 L (1.2-4.9) X10*3/uL [place] # (Auto) 0.5 (0.1-1.2) X10*3/uL Eos # (Auto) 0.0 (0.0-0.4) X10*3/uL Baso # (Auto) 0.0 (0.0-0.2) X10*3/uL Abs Immat Gran (auto) 0.02 (0.00-0.03) X10*3/uL Absolute Neuts (auto) 8.5 H (2.0-8.3) x10*3/uL Absolute Nucleated RBC 0.000 (0.0-0.012) X10*3/uL Nucleated RBC % (auto) 0.0 (0.0-0.2) /100WBC Sodium 139 (135-145) mmol/L Potassium 4.5 (3.3-5.1) mmol/L Chloride 102 (96-108) mmol/L Carbon Dioxide 26 (22-29) mmol/L Anion Gap 16 (12-20) BUN 14 (9-16) mg/dL Creatinine 0.64 (0.5-1.4) mg/dL Estim Creat Clear Calc 141.0 Estimated GFR > 60 Random Glucose 125 H (60-115) mg/dL Lactic Acid 1.2 (0.5-2.0) mmol/L Calcium 9.7 D (8.4-10.2) mg/dL Total Bilirubin 0.3 (0.0-1.0) mg/dL AST 24 (5-37) U/L ALT 23 (0-40) U/L Alkaline Phosphatase 104 (39-117) U/L Total Protein 7.8 (6.5-8.0) g/dL Albumin 4.0 (3.5-5.0) g/dL Urine Color Urine Appearance Urine pH (5.0-9.0) Ur Specific [place] (1.005-1.025) Urine Protein (Neg-Trace) mg/dL Urine Glucose (UA) (Negative) mg/dL Urine Ketones (Negative) mg/dL Urine Blood (Negative) Urine Nitrite (Negative) Ur Leukocyte Esterase (Negative) Urine RBC (0-2) /HPF Urine WBC (0-5) /HPF Ur Squamous Epith Cells (0-2) /HPF Urine Bacteria (None Seen) Hyaline Casts (0-2) /LPF 08/28/22 Range/Units 18:44 WBC (4.8-10.8) X10*3/uL RBC (4.60-5.80) X10*6/uL Hgb (14.0-18.0) g/dl Hct (42.0-52.0) % MCV (80.0-98.0) fL MCH (27.0-33.0) pg MCHC (31.0-36.0) g/dl RDW (11.0-16.0) % Plt Count (160-400) X10*3/uL MPV (9.4-12.4) fL Immature Gran % (Auto) (0.0-0.4) % Neut % (Auto) (45-73) % Lymph % (Auto) (20-40) % [place] % (Auto) (2-11) % Eos % (Auto) (0-4) % Baso % (Auto) (0-2) % Lymph # (Auto) (1.2-4.9) X10*3/uL [place] # (Auto) (0.1-1.2) X10*3/uL Eos # (Auto) (0.0-0.4) X10*3/uL Baso # (Auto) (0.0-0.2) X10*3/uL Abs Immat Gran (auto) (0.00-0.03) X10*3/uL Absolute Neuts (auto) (2.0-8.3) x10*3/uL Absolute Nucleated RBC (0.0-0.012) X10*3/uL Nucleated RBC % (auto) (0.0-0.2) /100WBC Sodium (135-145) mmol/L Potassium (3.3-5.1) mmol/L Chloride (96-108) mmol/L Carbon Dioxide (22-29) mmol/L Anion Gap (12-20) BUN (9-16) mg/dL Creatinine (0.5-1.4) mg/dL Estim Creat Clear Calc Estimated GFR Random Glucose (60-115) mg/dL Lactic Acid (0.5-2.0) mmol/L Calcium (8.4-10.2) mg/dL Total Bilirubin (0.0-1.0) mg/dL AST (5-37) U/L ALT (0-40) U/L Alkaline Phosphatase (39-117) U/L Total Protein (6.5-8.0) g/dL Albumin (3.5-5.0) g/dL Urine Color Yellow Urine Appearance Cloudy Urine pH 6.0 (5.0-9.0) Ur Specific [place] 1.015 (1.005-1.025) Urine Protein 30 (1+) H (Neg-Trace) mg/dL Urine Glucose (UA) Negative (Negative) mg/dL Urine Ketones Negative (Negative) mg/dL Urine Blood Large (3+) H (Negative) Urine Nitrite Positive H (Negative) Ur Leukocyte Esterase Large (3+) H (Negative) Urine RBC >20 H (0-2) /HPF Urine WBC >50 H (0-5) /HPF Ur Squamous Epith Cells 0-2 (0-2) /HPF Urine Bacteria 4+ (None Seen) Hyaline Casts 0-2 (0-2) /LPF Radiology Impression Radiologist Impression: My interpretation is in agreement with radiology's impression. Procedures Catheter Insertion (Urinary) Date of insertion: 08/28/22 Time of insertion: 17:40 Reason for placing: Yes Patient has the following: history of catheter associated urinary tract inf ection Bladder scan/ultrasound used before catheterization: Yes Estimated amount of urine (mLs): 187 Antiseptic solution prep: Povidone-Iodine Topical anesthesia used: No Catheter type/location: Suprapubic Size (Icelandic): 18 Catheter balloon size (mL): 10 Catheter balloon amount: 10 Results: successfully catheterized-immediate flow Procedure performed: without complications Discharge Plan Discharge Clinical Impression: Acute UTI, Complication of Mcghee catheter Patient Disposition: Home, Self-Care Instructions: Urinary Tract Infection in Men (ED), How to Care for Your Suprapu bic Catheter (DC), Catheter-associated Urinary Tract Infection (ED) Additional Instructions: 1. Resume all home medications. 2. Complete the entire course of antibiotics as prescribed. 3. Follow-up with urology in the next 2-3 days. 4. Please treat any temperatures greater than 100.4 with Tylenol/ibuprofen. Return to the ER for any worsening symptoms. Prescriptions: New cefdinir 300 mg capsule 300 mg PO BID 10 Days Qty: 20 0RF No Action sulfamethoxazole-trimethoprim [Bactrim DS] 800-160 mg tablet 1 tab PO BID PRN (Reason: UTI) 7 Days Qty: 14 0RF methadone 5 mg tablet 5 mg PO TID Qty: 90 0RF Rx Instructions: the patient cannot see pain management until November therefore please give 1 refill metoprolol succinate 25 mg tablet extended release 24 hr 25 mg PO DAILY Qty: 30 2RF acetaminophen 325 mg Tablet 350 mg PO NEEDED gabapentin 600 mg Tablet 900 mg PO TID trazodone 50 mg Tablet 25 mg PO NEEDED cetirizine 10 mg Tablet 10 mg PO DAILY phenytoin sodium extended 100 mg Capsule 100 mg PO DAILY amantadine HCl 100 mg Capsule 100 mg PO BID baclofen 20 mg Tablet 20 mg PO TID bisacodyl 10 mg Suppository 10 mg AL DAILY docusate sodium [Colace] 100 mg Capsule 100 mg PO BID amitriptyline 100 mg Tablet 100 mg PO BEDTIME senna 8.6 mg Capsule 17.2 mg PO BID tizanidine 4 mg Capsule 8 mg PO TID metoprolol succinate 25 mg Lary Stephens,Er 24hr 25 mg PO DAILY Milk of Magnesia 400 mg/5 ml suspension 150 mg PO NEEDED Tecfidera 240 mg PO BID peg 3350-electrolytes [Golytely] 236-22.74-6.74 -5.86 gram recon soln 240 ml PO Q10M 1 Days Qty: 4000 0RF Rx Instructions: until fecal effluent is clear methadone 10 mg tablet 10 mg PO TID Qty: 90 0RF diazepam 5 mg tablet 1 tab PO BID metoprolol tartrate 50 mg tablet 0 mg PO loratadine 10 mg tablet 10 mg PO DAILY polyethylene glycol 3350 17 gram/dose powder PO baclofen 10 mg tablet PO phenytoin 50 mg tablet,chewable 50 mg PO BID melatonin 5 mg tablet 5 mg PO BEDTIME sennosides [senna] 8.6 mg tablet 17.2 mg PO BID ascorbic acid (vitamin C) [Vitamin C] 500 mg tablet 500 mg PO BID 90 Days Qty: 180 1RF doxycycline monohydrate 100 mg tablet 100 mg PO .COMPLEX 30 Days Qty: 40 1RF Rx Instructions: 100 mg PO On day of catheter change; 1 tab before cath change and 1 tab after cath change; methenamine hippurate 1 gram tablet 1 g PO DAILY 90 Days Qty: 90 3RF
[2022-08-28 18:49] LABS: MANUAL DIFF FLAG NO
[2022-08-28 18:53] LABS: Basophils Percent Auto 0.1 % (0-2); Eosinophils Percent Auto 0.2 % (0-4); Hematocrit 43.7 % (42.0-52.0); Hemoglobin 14.4 g/dl (14.0-18.0); Imm Gran Abs Auto 0.02 X10*3/uL (0.00-0.03); Imm Gran Pct Auto 0.2 % (0.0-0.4); Lymphocytes Absolute Auto 0.7 X10*3/uL (1.2-4.9); Lymphocytes Percent Auto 7.6 % (20-40); Mean Corpuscular Hemoglobin 29.8 pg (27.0-33.0); Mean Corpuscular Volume 90.5 fL (80.0-98.0); Mean Platelet Volume 9.5 fL (9.4-12.4); Monocytes Absolute Auto 0.5 X10*3/uL (0.1-1.2); Monocytes Percent Auto 5.4 % (2-11); Neutrophils Absolute Auto 8.5 x10*3/uL (2.0-8.3); Neutrophils Percent Auto 86.5 % (45-73); Platelet Count 170 X10*3/uL (160-400); Red Blood Count 4.83 X10*6/uL (4.60-5.80); Red Cell Distribution Width 11.7 % (11.0-16.0); White Blood Count 9.8 X10*3/uL (4.8-10.8)
[2022-08-28 18:54] LABS: Appearance Urine Cloudy; Color Urine Yellow; Glucose Urine UA Negative (Negative); Leukocyte Esterase Urine Large (3+) (Negative); Nitrite Urine Positive (Negative); Specific Gravity - Urine 1.015 (1.005-1.025); UMIC TRIGGER UACC YES; Urine Blood Large (3+) (Negative); Urine Ketones Negative (Negative); Urine Protein 30 (1+) mg/dL (Neg-Trace)
[2022-08-28 18:59] LABS: Bacteria Urine 4+ (None Seen); Hyaline Casts Urine 0-2 /LPF (0-2); RBC Urine >20 /HPF (0-2); Squamous Epithelial Cell Urine 0-2 /HPF (0-2); UACC Culture Trigger YES; WBC Urine >50 /HPF (0-5)
[2022-08-28 19:07] LABS: Lactic Acid 1.2 mmol/L (0.5-2.0)
[2022-08-28 19:10] LABS: Alanine Aminotransferase 23 U/L (0-40); Alkaline Phosphatase 104 U/L (39-117); Anion Gap 16 (12-20); Aspartate Amino Transferase 24 U/L (5-37); Bilirubin Total 0.3 mg/dL (0.0-1.0); Blood Urea Nitrogen 14 mg/dL (9-16); Calcium 9.7 mg/dL (8.4-10.2); Carbon Dioxide 26 mmol/L (22-29); Chloride 102 mmol/L (96-108); Estimated Glomerular Filt Rate > 60; Glucose Random 125 mg/dL (60-115); Potassium 4.5 mmol/L (3.3-5.1); Sodium 139 mmol/L (135-145); Total Protein 7.8 g/dL (6.5-8.0)
[2022-08-28] MEDS: cefTRIAXone sodium 1 GM in 0.9 % Sodium Chloride 50 ML IV (19:49)
[2022-08-28] MEDS: Acetaminophen Supp 650 MG SUPP.RECT PR (19:49)
[2022-08-28] MEDS: 0.9 % Sodium Chloride 1,000 ML 999 ML IV (19:50)
[2022-08-28 20:55] VITALS: RESP 16
== END 2022-08-28 21:18 | disposition home or self-care (01) ==
PROVIDERS: Emergency Provider Student in an Organized Health Care Education/Training Program
DX: N39.0 Urinary tract infection, site not specified (principal); T83.9XXA Unspecified complication of genitourinary prosthetic device, implant and graft, initial encounter; R05.9 Cough, unspecified; Y73.8 Miscellaneous gastroenterology and urology devices associated with adverse incidents, not elsewhere classified; Y92.9 Unspecified place or not applicable; Z79.899 Other long term (current) drug therapy
CPT/HCPCS: 36415; 71045; 80053; 81001; 83605; 85025; 87040; 87077; 87086; 87147; 87186; 87205; 96374; 99284; J0696

== ENCOUNTER 2022-08-29 11:30 | Inpatient (IN) | payer OTHER, SELFPAY ==
[2022-08-29] VITALS (8 sets, daily range): BP systolic 104–134; BP diastolic 69–83; PULSE 112–125; RESP 15–20; TEMP 36.7–37.7; O2SAT 96–99; BMI 21.5
--- NOTE | ~2022-08-29 | CT_ITS ---
EXAMINATION: CT ABDOMEN AND PELVIS WITHOUT CONTRAST CLINICAL INFORMATION: Hydronephrosis COMPARISON: CT abdomen and pelvis 08/16/2020 TECHNIQUE: Multidetector volumetric imaging was performed from the superior aspect of the liver through the pubic symphysis. Sagittal and coronal reformatted images were obtained on the technologist's workstation. This CT examination was performed using dose optimization techniques as appropriate, variously including the following: *Automated exposure control *Adjustment of mA and/or kV according to patient size (this includes techniques or standardized protocols for targeted exams where dose is matched to indication/reason for exam; i.e. extremities or head) *Use of iterative reconstruction technique DLP: 709 mGy-cm FINDINGS: LUNG BASES: Bibasilar atelectasis is present. LIVER, GALLBLADDER, AND BILIARY TREE: The liver is normal in size, shape, and attenuation. Multiple benign-appearing hepatic cysts are present. No focal worrisome solid hepatic lesion or biliary ductal dilatation is present. The gallbladder is unremarkable with no evidence of radiopaque gallstones, gallbladder wall thickening, or obvious pericholecystic inflammatory changes. PANCREAS: Unremarkable. SPLEEN: Unremarkable. ADRENAL GLANDS: Unremarkable. KIDNEYS AND URETERS: The kidneys are normal in size, shape, and attenuation. A left lower pole benign renal cyst is present which needs no additional imaging or follow-up. No solid renal masses are seen on this limited noncontrast study. No hydronephrosis, hydroureter, or calculi seen. No perinephric stranding. BLADDER: A suprapubic cystostomy tube is in place in good position. The bladder is empty. GASTROINTESTINAL TRACT: There is a large stool burden present in the rectosigmoid with a large amount of stool present throughout the remainder of the colon. The small and large bowel are otherwise unremarkable. The appendix is unremarkable. ABDOMINAL WALL: No significant hernia is appreciated. LYMPH NODES: Normal. VASCULAR: Unremarkable. PELVIC VISCERA: Unremarkable. OSSEOUS STRUCTURES: Unremarkable. CT/CT abdomen pelvis wo IV con IMPRESSION: 1. No hydronephrosis is present. 2. No renal calculi are seen. 3. Suprapubic cystostomy tube in place. 4. Large stool burden in the rectosigmoid. 5. Incidental note made of benign hepatic cysts, bibasilar atelectasis and other findings described above. Fleischner guidelines were followed.
--- NOTE | 2022-08-29 11:42 | ED_ITS ---
HPI - Male Genitourinary General Chief complaint: Urogenital-Male Stated complaint: ?SEPSIS, BEING TX'D FOR UTI Time Seen by Provider: 08/29/22 11:42 Source: patient and other Mode of arrival: EMS Limitations: other (nonverbal) History of Present Illness HPI Narrative: 41 year old male with history of MS presents today via EMS from nursing home due to positive blood cultures. Patient was seen in ED yesterday for a suprapubic catheter change and was noted to have a urinary infection and was started on ceftriaxone due to past history of providencia noted to be sensitive to ceftriaxone. Blood cultures were obtained which returned positive this morning. Provider in ED consulted ID and patient was informed to come to the ED for further workup and treatment. Related Data Home Medications Medication Instructions Recorded Confirmed Milk of Magnesia 150 mg PO NEEDED Constipation 04/14/20 01/08/22 Tecfidera 240 mg PO BID 04/14/20 01/08/22 acetaminophen 325 mg tablet 350 mg PO NEEDED Fever/Pain 04/14/20 01/08/22 amantadine HCl 100 mg capsule 100 mg PO BID 04/14/20 01/08/22 amitriptyline 100 mg tablet 100 mg PO BEDTIME 04/14/20 01/08/22 baclofen 20 mg tablet 20 mg PO TID 04/14/20 01/08/22 bisacodyl 10 mg rectal suppository 10 mg VT DAILY Constipation 04/14/20 01/08/22 cetirizine 10 mg tablet 10 mg PO DAILY 04/14/20 01/08/22 docusate sodium 100 mg capsule 100 mg PO BID 04/14/20 01/08/22 (Colace) gabapentin 600 mg tablet 900 mg PO TID PAIN 04/14/20 01/08/22 metoprolol succinate 25 mg capsule 25 mg PO DAILY 04/14/20 01/08/22 sprinkle, ext. release 24 hr phenytoin sodium extended 100 mg 100 mg PO DAILY 04/14/20 01/08/22 capsule sennosides 8.6 mg capsule (senna) 17.2 mg PO BID Constipation 04/14/20 01/08/22 tizanidine 4 mg capsule 8 mg PO TID 04/14/20 01/08/22 trazodone 50 mg tablet 25 mg PO NEEDED INSOMNIA 04/14/20 01/08/22 metoprolol tartrate 50 mg tablet 0 mg PO 01/09/21 01/08/22 diazepam 5 mg tablet 1 tab PO BID 12/27/21 01/08/22 baclofen 10 mg tablet mg PO 07/09/22 loratadine 10 mg tablet 10 mg PO DAILY 07/09/22 melatonin 5 mg tablet 5 mg PO BEDTIME 07/09/22 phenytoin 50 mg chewable tablet 50 mg PO BID 07/09/22 polyethylene glycol 3350 17 g PO 07/09/22 gram/dose oral powder sennosides 8.6 mg tablet (senna) 17.2 mg PO BID 07/09/22 Previous Rx's Medication Instructions Recorded peg 3350-electrolytes 236 240 ml PO Q10M Severe constipation 08/16/20 gram-22.74 gram-6.74 gram-5.86 1 day #4,000 mL gram solution (Golytely) methadone 5 mg tablet 5 mg PO TID #90 tabs 09/13/20 metoprolol succinate 25 mg 25 mg PO DAILY hypertension #30 09/13/20 tablet,extended release 24 hr tabs methadone 10 mg tablet 10 mg PO TID For past substance 10/08/20 abuse #90 tabs sulfamethoxazole 800 1 tab PO BID PRN UTI 7 days #14 05/06/21 mg-trimethoprim 160 mg tablet tabs (Bactrim DS) ascorbic acid (vitamin C) 500 mg 500 mg PO BID 90 days #180 tabs 07/09/22 tablet (Vitamin C) doxycycline monohydrate 100 mg 100 mg PO .COMPLEX 30 days #40 tabs 07/09/22 tablet methenamine hippurate 1 gram tablet 1 g PO DAILY 90 days #90 tabs 07/09/22 cefdinir 300 mg capsule 300 mg PO BID 10 days #20 caps 08/28/22 Allergies Allergy/AdvReac Type Severity Reaction Status Date / Time bee pollen [BEE STINGS] Allergy Unknown SWELLING Verified 07/09/22 09:09 bees, hornets, wasps Allergy Unknown anaphylaxis Uncoded 07/09/22 09:09 Review of Systems Review of Systems: Yes Unobtainable due to mental condition (non verbal) PMFSH Past Medical History Attestation statement: The following information was validated with the patient. Source: old records reviewed and nursing notes reviewed Medical History Hepatitis C Multiple sclerosis Neuromyopathy Suprapubic catheter UTI (urinary tract infection) Social History Social History Alcohol intake: never Patient Tobacco Use Status: Current everyday Tobacco user Advance Directives: Yes Advance Directives on File: Yes Advance Directives Date on File: 04/16/20 service: No Current occupational status: disabled Physical Exam Vital Signs: Vital Signs: Last Vital Signs Temp 100 F 08/29/22 12:22 Pulse 112 H 08/29/22 14:00 Resp 15 08/29/22 14:00 BP 118/75 08/29/22 14:00 Pulse Ox 99 08/29/22 14:00 O2 Del Method Room Air 08/29/22 14:00 BMI result Body Mass Index 21.5 Noted to be tachycardic, low grade temp Const: General: no acute distress, alert, awake and ill appearing chronically Nutritional Appearance: average body habitus Limitations: other limitations (Nonverbal) HEENT: Head: Yes normal to inspection Face and sinus: Yes normal facial exam Neck: Neck: Yes normal visual inspection Resp: Auscultation: clear to auscultation bilaterally Cardio: Rate: regular rate Rhythm: regular rhythm Heart sounds: S1 normal heart sound present and S2 normal heart sound present GI: Other: + suprapubic catheter noted Palpation (GI): Firmness to palpation present (GI), nontender, no guarding and not rigid Skin: General skin exam: no rashes or lesions noted Neuro: Other: awake, alert, nonverbal, nods to yes and no Extrem: General: Yes normal to inspection and Yes no pedal edema Course Reevaluation(s) Reevaluation #1: On re-examination, patient is stable. HR down from 123 to 112 and bp is stable. Awaiting admission. Time: 14:32 Medications Administered Discontinued Medications Generic Name Dose Route Start Last Admin Trade Name Freq PRN Reason Stop Dose Admin Sodium Chloride 2,040 mls @ 2,040 mls/hr 08/29/22 11:47 08/29/22 12:28 Ns 30 ml/kg infuse over 1 hr (2040 ml) 08/29/22 12:46 2,040 mls/hr IV Administration .Q1H STA Ceftriaxone Sodium 1 gm/ 50 mls @ 100 mls/hr 08/29/22 11:47 08/29/22 12:28 Sodium Chloride IV 08/29/22 12:16 100 mls/hr ONCE ONE Administration Medical Decision Making Medical Decision Making [facility] Narrative: 41 year old male presenting with gram negative bacteremia, concern for sepsis. He is tachycardic with low grade temp. Will give antibiotic and monitor blood pressure, administer IVF. Differential Diagnosis Differential Diagnoses: The differential diagnosis associated with the presentation includes gram negative sepsis. Question contamination however unlikely. Admission/Observation Consideration of admission/observation: Escalation of care including admission/observation considered Meets criteria for admission. Consult Healthcare Provider Management of the patient was discussed with: Hospitalist Spoke with dr. grimm Lab Data [facility] Lab Attestation statement: I reviewed the patient's lab results. 08/29/22 12:15 08/29/22 12:15 Labs: Lab Results 08/29/22 08/29/22 08/29/22 Range/Units 12:15 12:15 12:15 WBC 5.2 (4.8-10.8) X10*3/uL RBC 4.31 L (4.60-5.80) X10*6/uL Hgb 12.9 L (14.0-18.0) g/dl Hct 39.8 L (42.0-52.0) % MCV 92.3 (80.0-98.0) fL MCH 29.9 (27.0-33.0) pg MCHC 32.4 (31.0-36.0) g/dl RDW 11.8 (11.0-16.0) % Plt Count 143 L (160-400) X10*3/uL MPV 9.4 (9.4-12.4) fL Immature Gran % (Auto) 0.2 (0.0-0.4) % Neut % (Auto) 75.9 H (45-73) % Lymph % (Auto) 14.3 L (20-40) % [place] % (Auto) 8.8 (2-11) % Eos % (Auto) 0.2 (0-4) % Baso % (Auto) 0.6 (0-2) % Lymph # (Auto) 0.8 L (1.2-4.9) X10*3/uL [place] # (Auto) 0.5 (0.1-1.2) X10*3/uL Eos # (Auto) 0.0 (0.0-0.4) X10*3/uL Baso # (Auto) 0.0 (0.0-0.2) X10*3/uL Abs Immat Gran (auto) 0.01 (0.00-0.03) X10*3/uL Absolute Neuts (auto) 4.0 (2.0-8.3) x10*3/uL Absolute Nucleated RBC 0.000 (0.0-0.012) X10*3/uL Nucleated RBC % (auto) 0.0 (0.0-0.2) /100WBC Sodium 138 (135-145) mmol/L Potassium 4.0 (3.3-5.1) mmol/L Chloride 101 (96-108) mmol/L Carbon Dioxide 30 H (22-29) mmol/L Anion Gap 11 L (12-20) BUN 12 (9-16) mg/dL Creatinine 0.70 (0.5-1.4) mg/dL Estim Creat Clear Calc 130.8 Estimated GFR > 60 Random Glucose 141 H (60-115) mg/dL Lactic Acid 2.0 (0.5-2.0) mmol/L Calcium 9.4 (8.4-10.2) mg/dL Total Bilirubin 0.2 (0.0-1.0) mg/dL AST 18 (5-37) U/L ALT 23 (0-40) U/L Alkaline Phosphatase 98 (39-117) U/L Total Protein 7.0 (6.5-8.0) g/dL Albumin 3.8 (3.5-5.0) g/dL Urine Color Urine Appearance Urine pH (5.0-9.0) Ur Specific [place] (1.005-1.025) Urine Protein (Neg-Trace) mg/dL Urine Glucose (UA) (Negative) mg/dL Urine Ketones (Negative) mg/dL Urine Blood (Negative) Urine Nitrite (Negative) Ur Leukocyte Esterase (Negative) Urine RBC (0-2) /HPF Urine WBC (0-5) /HPF Ur Squamous Epith Cells (0-2) /HPF Urine Bacteria (None Seen) Hyaline Casts (0-2) /LPF 08/29/22 Range/Units 12:16 WBC (4.8-10.8) X10*3/uL RBC (4.60-5.80) X10*6/uL Hgb (14.0-18.0) g/dl Hct (42.0-52.0) % MCV (80.0-98.0) fL MCH (27.0-33.0) pg MCHC (31.0-36.0) g/dl RDW (11.0-16.0) % Plt Count (160-400) X10*3/uL MPV (9.4-12.4) fL Immature Gran % (Auto) (0.0-0.4) % Neut % (Auto) (45-73) % Lymph % (Auto) (20-40) % [place] % (Auto) (2-11) % Eos % (Auto) (0-4) % Baso % (Auto) (0-2) % Lymph # (Auto) (1.2-4.9) X10*3/uL [place] # (Auto) (0.1-1.2) X10*3/uL Eos # (Auto) (0.0-0.4) X10*3/uL Baso # (Auto) (0.0-0.2) X10*3/uL Abs Immat Gran (auto) (0.00-0.03) X10*3/uL Absolute Neuts (auto) (2.0-8.3) x10*3/uL Absolute Nucleated RBC (0.0-0.012) X10*3/uL Nucleated RBC % (auto) (0.0-0.2) /100WBC Sodium (135-145) mmol/L Potassium (3.3-5.1) mmol/L Chloride (96-108) mmol/L Carbon Dioxide (22-29) mmol/L Anion Gap (12-20) BUN (9-16) mg/dL Creatinine (0.5-1.4) mg/dL Estim Creat Clear Calc Estimated GFR Random Glucose (60-115) mg/dL Lactic Acid (0.5-2.0) mmol/L Calcium (8.4-10.2) mg/dL Total Bilirubin (0.0-1.0) mg/dL AST (5-37) U/L ALT (0-40) U/L Alkaline Phosphatase (39-117) U/L Total Protein (6.5-8.0) g/dL Albumin (3.5-5.0) g/dL Urine Color Yellow Urine Appearance Clear Urine pH 6.5 (5.0-9.0) Ur Specific [place] 1.020 (1.005-1.025) Urine Protein Trace (Neg-Trace) mg/dL Urine Glucose (UA) Negative (Negative) mg/dL Urine Ketones Trace (Negative) mg/dL Urine Blood Negative (Negative) Urine Nitrite Negative (Negative) Ur Leukocyte Esterase Moderate (2+) H (Negative) Urine RBC 0-2 (0-2) /HPF Urine WBC 11-20 H (0-5) /HPF Ur Squamous Epith Cells 0-2 (0-2) /HPF Urine Bacteria Trace (None Seen) Hyaline Casts 0-2 (0-2) /LPF Independent Historian Clinical information obtained from an independent historian. History obtained from or confirmed by: EMS We spoke with EMS upon patient's arrival. Also staff at the nursing home External Record Review External record reviewed: Inpatient record Ed visit yesterday and prior ED visits. Chronic Conditions Patient?s care impacted by: Other (MS, bedridden, nonverbal) Procedures EJ/Peripheral Line Arm L: Time Out Performed: Yes IV Secured and Dressing Applied: Yes Additional Comments: Difficult IV asked by RN to establish IV,Under US cannulated left basilic vein with 18 odessa Introcan 1 and 3/4 Inch good blood return,good flash Discharge Plan Discharge Clinical Impression: Gram-negative bacteremia, Acute UTI, Multiple sclerosis, Constipation Patient Disposition: Admitted As Inpatient
[2022-08-29 12:21] LABS: MANUAL DIFF FLAG NO
[2022-08-29 12:24] LABS: Appearance Urine Clear; Color Urine Yellow; Glucose Urine UA Negative (Negative); Leukocyte Esterase Urine Moderate (2+) (Negative); Nitrite Urine Negative (Negative); PH 6.5 (5.0-9.0); UMIC TRIGGER UACC YES; Urine Blood Negative (Negative); Urine Ketones Trace mg/dL (Negative); Urine Protein Trace mg/dL (Neg-Trace)
[2022-08-29 12:25] LABS: Basophils Percent Auto 0.6 % (0-2); Eosinophils Percent Auto 0.2 % (0-4); Hematocrit 39.8 % (42.0-52.0); Hemoglobin 12.9 g/dl (14.0-18.0); Imm Gran Abs Auto 0.01 X10*3/uL (0.00-0.03); Imm Gran Pct Auto 0.2 % (0.0-0.4); Lymphocytes Absolute Auto 0.8 X10*3/uL (1.2-4.9); Lymphocytes Percent Auto 14.3 % (20-40); Mean Corpuscular HGB Conc 32.4 g/dl (31.0-36.0); Mean Corpuscular Hemoglobin 29.9 pg (27.0-33.0); Mean Corpuscular Volume 92.3 fL (80.0-98.0); Mean Platelet Volume 9.4 fL (9.4-12.4); Monocytes Absolute Auto 0.5 X10*3/uL (0.1-1.2); Monocytes Percent Auto 8.8 % (2-11); Neutrophils Percent Auto 75.9 % (45-73); Platelet Count 143 X10*3/uL (160-400); Red Blood Count 4.31 X10*6/uL (4.60-5.80); Red Cell Distribution Width 11.8 % (11.0-16.0); White Blood Count 5.2 X10*3/uL (4.8-10.8)
[2022-08-29] MEDS: cefTRIAXone sodium 1 GM in 0.9 % Sodium Chloride 50 ML IV ×2 (12:28→16:04)
[2022-08-29] MEDS: 0.9 % Sodium Chloride 2,040 ML 2040 ML IV (12:28)
[2022-08-29 12:37] LABS: Bacteria Urine Trace (None Seen); Hyaline Casts Urine 0-2 /LPF (0-2); RBC Urine 0-2 /HPF (0-2); Squamous Epithelial Cell Urine 0-2 /HPF (0-2); UACC Culture Trigger YES
[2022-08-29 12:41] LABS: Alanine Aminotransferase 23 U/L (0-40); Albumin Level 3.8 g/dL (3.5-5.0); Alkaline Phosphatase 98 U/L (39-117); Anion Gap 11 (12-20); Aspartate Amino Transferase 18 U/L (5-37); Bilirubin Total 0.2 mg/dL (0.0-1.0); Blood Urea Nitrogen 12 mg/dL (9-16); Calcium 9.4 mg/dL (8.4-10.2); Carbon Dioxide 30 mmol/L (22-29); Chloride 101 mmol/L (96-108); Creatinine Clr Calc Pharmacy 130.8; Estimated Glomerular Filt Rate > 60; Glucose Random 141 mg/dL (60-115); Sodium 138 mmol/L (135-145)
--- NOTE | 2022-08-29 13:48 | P.HPHOSP_ITS ---
History of Present Illness Date of Service: 08/29/22 Attending physician on admission: Elvin Garcia Chief Complaint: UTI, +blood culture Pt is a 41-year-old male with a PMH significant for MS?with severe cognitive and physical impairment, neurogenic bladder, depression, GERD, HLD, who presents to the ED from assisted after 1/2 blood cultures come back positive for GNR this morning. Pt was seen in the ED yesterday to have his suprapubic catheter placed?after the patient was unable to have the catheter replaced by visiting clinicians to the assisted. Patient was noted to have a UTI, started on ceftriaxone and discharged on cefdinir. Emergency room clinician spoke to Infectious Disease who asked that the pt be brought back to the ED for repeat blood cultures, CT of abdomen and pelvis, and checking blood pressure and WBC. Pt with cognitive impairment but capable of answering yes and no to questions. Denies any acute complaints. Fever, chills, nausea, vomiting. Denies abdominal pain. No chest pain/pressure palpitations. Denies shortness of breath. Staff at assisted states that patient has not had any notable decline or alteration in mentation. In the ED patient with low grade fever of 100.3 degrees, tachycardic up to 123. Labs were largely unremarkable: No leukocytosis, stable H&H of 12.9/39.8, electrolytes WNL, kidney function baseline, hepatic function baseline. UA from yesterday on 08/28/[address] of abdomen and pelvis pending. Pt was treated with ceftriaxone and IVF. Pt will be admitted to the hospital for treatment and further evaluation of bacteremia in the setting of pyelonephritis. Review of Systems Review of Systems: Patient with cognitive impairment, but capable of answering yes and no appropriately Patient has no acute medical complaints at this time is Denies fever, chills, nausea, vomiting, abdominal pain No shortness of breath Denies chest pain/pressure, palpitations Yes all other systems are reviewed and are negative [facility] Medical History Hepatitis C Multiple sclerosis Neuromyopathy Suprapubic catheter UTI (urinary tract infection) Social History Alcohol intake: never Patient Tobacco Use Status: Never used Tobacco Smoked in Last 30 Days: No Use of substances other than those prescribed or required for medical reasons: No Advance Directives: Yes Advance Directives on File: Yes Advance Directives Date on File: 04/16/20 Nutrition Risks: No Nutritional Risk service: No Current occupational status: disabled Meds Allergies Allergy/AdvReac Type Severity Reaction Status Date / Time bee pollen [BEE STINGS] Allergy Unknown SWELLING Verified 07/09/22 09:09 bees, hornets, wasps Allergy Unknown anaphylaxis Uncoded 07/09/22 09:09 Active Medications: Current Medications Pharmacy Consult (Consult Rx Perform Med Rec) 1 each MISCELLANE ONCE PRN PRN Reason: Consult order Home Medications Medication Instructions Recorded Confirmed Last Taken Type acetaminophen 325 mg tablet 650 mg PO Q8H PRN Fever Or Pain 04/14/20 08/29/22 Unknown History amitriptyline 100 mg tablet 100 mg PO BEDTIME 04/14/20 08/29/22 Unknown History docusate sodium 100 mg capsule 100 mg PO BID 04/14/20 08/29/22 Unknown History (Colace) gabapentin 600 mg tablet 600 mg PO TID PAIN 04/14/20 08/29/22 Unknown History sennosides 8.6 mg capsule (senna) 17.2 mg PO BID Constipation 04/14/20 08/29/22 Unknown History melatonin 5 mg tablet 5 mg PO BEDTIME 07/09/22 08/29/22 Unknown History polyethylene glycol 3350 17 17 g PO BID 07/09/22 08/29/22 Unknown History gram/dose oral powder alpha lipoic acid 600 mg tablet 600 mg PO BID 08/29/22 08/29/22 Unknown History atorvastatin 10 mg tablet 10 mg PO DAILY 08/29/22 08/29/22 Unknown History baclofen 10 mg tablet 40 mg PO TID 08/29/22 08/29/22 Unknown History epinephrine 0.3 mg/0.3 mL 0.3 mg IM Q15M PRN Anaphylaxis 08/29/22 08/29/22 Unknown History injection syringe magnesium hydroxide 400 mg/5 mL 30 ml PO DAILY PRN Constipation 08/29/22 08/29/22 Unknown History oral suspension (Milk of Magnesia) phenytoin 50 mg chewable tablet 100 mg PO DAILY 08/29/22 08/29/22 Unknown History Physical Exam Vital Signs and Narrative: Vital Signs: Last Vital Signs Temp 100 F 08/29/22 12:22 Pulse 123 H 08/29/22 11:35 Resp 19 08/29/22 11:35 BP 120/78 08/29/22 11:35 Pulse Ox 97 08/29/22 11:35 O2 Del Method Room Air 08/29/22 11:35 BMI result Body Mass Index 21.5 Constitutional: Alert, in no acute distress. Patient lying on back, chronically ill. Mental Status: Pt with cognitive impairment. Eyes: Pupils are equal, round, and reactive to light. Ear, Nose, and Throat: Oropharynx clear, mucous membranes moist. Ears and nose without deformities. Trachea midline. Respiratory: Clear to auscultation bilaterally. No wheezing, rales, or rhonchi. Cardiovascular: S1, S2 regular, tachycardic. . No murmurs, rubs, or gallops. Gastrointestinal: Abdomen soft, non-tender, non-distended. Normal bowel sounds. Neurologic: Rhythmically nodding head. With contracted right arm across chest. Incapable of moving extremties. Skin: No rashes or lesions noted. Extremities: No edema. Results Labs 08/29/22 12:15 08/29/22 12:15 Labs: Laboratory Results - last 24 hr 08/29/22 08/29/22 08/29/22 12:15 12:15 12:15 MCV 92.3 MCH 29.9 MCHC 32.4 RDW 11.8 Plt Count 143 L MPV 9.4 Immature Gran % (Auto) 0.2 Neut % (Auto) 75.9 H Lymph % (Auto) 14.3 L [place] % (Auto) 8.8 Eos % (Auto) 0.2 Baso % (Auto) 0.6 Lymph # (Auto) 0.8 L [place] # (Auto) 0.5 Eos # (Auto) 0.0 Baso # (Auto) 0.0 Abs Immat Gran (auto) 0.01 Absolute Neuts (auto) 4.0 Absolute Nucleated RBC 0.000 Nucleated RBC % (auto) 0.0 Anion Gap 11 L Estim Creat Clear Calc 130.8 Estimated GFR > 60 Random Glucose 141 H Lactic Acid 2.0 Calcium 9.4 Total Bilirubin 0.2 AST 18 ALT 23 Alkaline Phosphatase 98 Total Protein 7.0 Albumin 3.8 Urine Color Urine Appearance Urine pH Ur Specific [place] Urine Protein Urine Glucose (UA) Urine Ketones Urine Blood Urine Nitrite Ur Leukocyte Esterase Urine RBC Urine WBC Ur Squamous Epith Cells Urine Bacteria Hyaline Casts 08/29/22 12:16 MCV MCH MCHC RDW Plt Count MPV Immature Gran % (Auto) Neut % (Auto) Lymph % (Auto) [place] % (Auto) Eos % (Auto) Baso % (Auto) Lymph # (Auto) [place] # (Auto) Eos # (Auto) Baso # (Auto) Abs Immat Gran (auto) Absolute Neuts (auto) Absolute Nucleated RBC Nucleated RBC % (auto) Anion Gap Estim Creat Clear Calc Estimated GFR Random Glucose Lactic Acid Calcium Total Bilirubin AST ALT Alkaline Phosphatase Total Protein Albumin Urine Color Yellow Urine Appearance Clear Urine pH 6.5 Ur Specific [place] 1.020 Urine Protein Trace Urine Glucose (UA) Negative Urine Ketones Trace Urine Blood Negative Urine Nitrite Negative Ur Leukocyte Esterase Moderate (2+) H Urine RBC 0-2 Urine WBC 11-20 H Ur Squamous Epith Cells 0-2 Urine Bacteria Trace Hyaline Casts 0-2 Assessment and Plan (1) Gram-negative bacteremia: Status: Acute (2) Pyelonephritis: Status: Acute Plan Pt is a 41-year-old male with a PMH significant for MS?with severe cognitive and physical impairment, neurogenic bladder, depression, GERD, HLD, who presents to the ED from assisted after 1/2 blood cultures come back positive for GNR this morning. Pt will be admitted to the hospital for treatment and further evaluation of bacteremia in the setting of pyelonephritis. Bacteremia in the setting of pyelonephritis UA yesterday positive for UTI, today low-grade fever of 100.3 1/2 blood cultures positive for gram negative rods Pt with past infection with providencia susceptible to ceftriaxone Pt does not meet sepsis criteria: No leukocytosis, no tachypnea, maximum temperature 100.3 degrees, lactic acid WNL Tachycardia chronic for past 5-6 years Patient will be treated with ceftriaxone 2g qd, started 08/29/2022 Patient was given IVF in the ED Check CT of abdoment/pelvis ID consult Follow urine, blood cultures MS Continue baclofen, gabapentin, phenytoin Constipation Patient with chronic constipation Continue laxatives, stool softeners HLD Continue statin Full Code Attending:?Dr. Garcia DVT Prophylaxis: Lovenox Pt will require a hospitalization of at least two nights for treatment of bacteremia in the setting of pyelonephritis with IV antibiotics. Time Spent With Patient Time: Total time managing care of this patient today ____ minutes. Quality Stroke Does the patient have a stroke diagnosis?: No VTE Prior VTE?: No VTE Risk Level:: Medical - moderate - high VTE Device Contraindication: Treatment Not Indicated VTE Drug Contraindication: N/A - Med Ordered
[2022-08-29] MEDS: Gabapentin 600 MG TABLET PO ×2 (15:39→21:18)
[2022-08-29] MEDS: Baclofen 20 MG TABLET 40 MG PO ×2 (15:39→21:17)
[2022-08-29] MEDS: Enoxaparin Sodium 40 MG/0.4 ML SYRINGE SUBCUT (15:39)
[2022-08-29] MEDS: 0.9 % Sodium Chloride Flush 3 ML SYRINGE IVFLUSH (16:04)
--- NOTE | 2022-08-29 16:20 | PC.NURSE ---
report given to [facility] [place] pt to be brought up by transport
[2022-08-29] MEDS: Amitriptyline HCl 50 MG TABLET 100 MG PO (21:17)
[2022-08-29] MEDS: Sennosides 8.6 MG TABLET 17.2 MG PO (21:18)
[2022-08-29] MEDS: polyethylene glycoL 3350 17 GM POWD.PACK PO (21:18)
[2022-08-29] MEDS: Docusate Sodium 100 MG/10 ML LIQUID PO (21:18)
[2022-08-29] MEDS: Melatonin 3 MG TABLET 6 MG PO (21:18)
--- NOTE | 2022-08-29 21:44 | PC.NURSE ---
patient has blisters to left hand on the 3rd and 4th middle knuckles
[2022-08-30] MEDS: 0.9 % Sodium Chloride Flush 3 ML SYRINGE IVFLUSH ×2 (00:42→22:20)
[2022-08-30 03:09] VITALS: BP 100/62; PULSE 100; RESP 18; TEMP 36.9; O2SAT 94
[2022-08-30 06:52] LABS: Hematocrit 38.7 % (42.0-52.0); Hemoglobin 12.8 g/dl (14.0-18.0); Mean Corpuscular HGB Conc 33.1 g/dl (31.0-36.0); Mean Corpuscular Hemoglobin 30.3 pg (27.0-33.0); Mean Corpuscular Volume 91.5 fL (80.0-98.0); Mean Platelet Volume 9.5 fL (9.4-12.4); Platelet Count 129 X10*3/uL (160-400); Red Blood Count 4.23 X10*6/uL (4.60-5.80); Red Cell Distribution Width 11.9 % (11.0-16.0); White Blood Count 3.3 X10*3/uL (4.8-10.8)
[2022-08-30 06:57] LABS: Anion Gap 10 (12-20); Blood Urea Nitrogen 6 mg/dL (9-16); Calcium 9.2 mg/dL (8.4-10.2); Carbon Dioxide 27 mmol/L (22-29); Chloride 107 mmol/L (96-108); Creatinine Clr Calc Pharmacy 147.7; Estimated Glomerular Filt Rate > 60; Glucose Random 94 mg/dL (60-115); Potassium 3.9 mmol/L (3.3-5.1); Sodium 140 mmol/L (135-145)
[2022-08-30 07:11] VITALS: BP 95/59; PULSE 106; RESP 20; TEMP 36.3; O2SAT 99
--- NOTE | 2022-08-30 08:08 | MHC.CM.PN ---
CM met with Patient and a [employer] at bedside. Goal is for Patient to return to his Retirement, once medically cleared for dc;CM has initiated and will follow for dc planning. Patient is Kathy rae and his PCP is Dr. Emma Cross.
[2022-08-30] MEDS: Gabapentin 600 MG TABLET PO ×3 (09:25→22:07)
[2022-08-30] MEDS: polyethylene glycoL 3350 17 GM POWD.PACK PO ×2 (09:25→22:07)
[2022-08-30] MEDS: Atorvastatin Calcium 10 MG TABLET PO (09:25)
[2022-08-30] MEDS: Docusate Sodium 100 MG/10 ML LIQUID PO ×2 (09:25→22:08)
[2022-08-30] MEDS: Sennosides 8.6 MG TABLET 17.2 MG PO ×2 (09:26→22:07)
[2022-08-30] MEDS: Phenytoin Chewable 50 MG TAB.CHEW 100 MG PO (09:26)
[2022-08-30] MEDS: Metoprolol Succinate ER 25 MG TAB.ER.24H PO (09:26)
--- NOTE | 2022-08-30 09:40 | PC.NURSE ---
informed MD of pt's BP and HR. per Md give metop but hold baclofen. ok to administer all other meds. MD assessed pt at bedside. vesicles noted to L hand and rash to face and cheek
--- NOTE | 2022-08-30 09:50 | P.PNIM_ITS ---
Subjective Subjective Date of Service: 08/31/22 Interval History: being followed for Gram-negative bacteremia, patient unable to provide meaningful history due to underlying multiple sclerosis with severe cognitive and physical impairment. No overnight events, tolerated breakfast, no r ecurrent fevers. Review of Systems unable to obtain due to severe cognitive impairment. Physical Exam Vital Signs: Vital Signs: Last Vital Signs Temp 97.4 F 08/30/22 07:11 Pulse 106 H 08/30/22 07:11 Resp 20 08/30/22 07:11 BP 95/59 L 08/30/22 07:11 Pulse Ox 99 08/30/22 07:11 O2 Del Method Room Air 08/30/22 07:11 BMI result Body Mass Index 21.5 Const: Other: Constitutional:?Alert, in no acute distress. Eyes:?Pupils are equal, round, and reactive to light. Neck supple Respiratory:?Clear to auscultation bilaterally. No wheezing, rales, or rhonchi. Cardiovascular:?S1, S2 regular, tachycardic. . No murmurs, rubs, or gallops. Gastrointestinal:?Abdomen soft, non-tender, non-distended. Normal bowel sounds. Neurologic:?Rhythmically nodding head. With contracted right arm across chest. Incapable of moving extremties. Skin: malar rash, vesicles left hand middle and ring finger, swollen fingers. Extremities:?No edema. Mcghee with clear urine Objective Data Active Medications Acetaminophen (Acetaminophen 325 Mg Tablet) 650 mg PO Q6H PRN PRN Reason: Pain, Mild (Pain Scale 1-3) Amitriptyline HCl (Amitriptyline Hcl 50 Mg Tablet) 100 mg PO BEDTIME [facility] Last Admin: 08/29/22 21:17 Dose: 100 mg Documented By: PAULA Atorvastatin Calcium (Atorvastatin Calcium 10 Mg Tablet) 10 mg PO DAILY [facility] Last Admin: 08/30/22 09:25 Dose: 10 mg Documented By: WANDY Baclofen (Baclofen 20 Mg Tablet) 40 mg PO TID [facility] Last Admin: 08/30/22 09:22 Dose: Not Given Documented By: WANDY Non-Admin Reason: See Note Docusate Sodium (Docusate Sodium 100 Mg/10 Ml Liquid) 100 mg PO BID [facility] Last Admin: 08/30/22 09:25 Dose: 100 mg Documented By: WANDY Docusate Sodium (Docusate Sodium 100 Mg/10 Ml Liquid) 100 mg PO DAILY PRN PRN Reason: Constipation Enoxaparin Sodium (Enoxaparin Sodium 40 Mg/0.4 Ml Syringe) 40 mg SUBCUT Q24H [facility] Last Admin: 08/29/22 15:39 Dose: 40 mg Documented By: MILLIE Epinephrine (Epinephrine 1 Mg/Ml Vial) 0.3 mg IM Q15M PRN PRN Reason: Anaphylaxis Gabapentin (Gabapentin 600 Mg Tablet) 600 mg PO TID [facility] Last Admin: 08/30/22 09:25 Dose: 600 mg Documented By: WANDY Ceftriaxone Sodium 2 gm/ (Sodium Chloride) 50 mls @ 100 mls/hr IV Q24H [facility] Magnesium Hydroxide (Milk Of Magnesia 30 Ml Oral.Susp) 30 ml PO DAILY PRN PRN Reason: Constipation Melatonin (Melatonin 3 Mg Tablet) 6 mg PO BEDTIME [facility] Last Admin: 08/29/22 21:18 Dose: 6 mg Documented By: PAULA Metoprolol Succinate (Metoprolol Succinate Er 25 Mg Tab.Er.24h) 25 mg PO DAILY [facility]; Protocol Last Admin: 08/30/22 09:26 Dose: 25 mg Documented By: WANDY Ondansetron HCl (Ondansetron Hcl 4 Mg/2 Ml Vial) 4 mg IVPUSH Q8H PRN PRN Reason: Nausea and Vomiting Pharmacy Consult (Consult Rx Perform Med Rec) 1 each MISCELLANE ONCE PRN PRN Reason: Consult order Phenytoin (Phenytoin Chewable 50 Mg Tab.Chew) 100 mg PO DAILY [facility] Last Admin: 08/30/22 09:26 Dose: 100 mg Documented By: WANDY Polyethylene Glycol (Polyethylene Glycol 3350 17 Gm Powd.Pack) 17 gm PO BID [facility] Last Admin: 08/30/22 09:25 Dose: 17 gm Documented By: WANDY Senna (Sennosides 8.6 Mg Tablet) 17.2 mg PO BID [facility] Last Admin: 08/30/22 09:26 Dose: 17.2 mg Documented By: WANDY Sodium Chloride (0.9 % Sodium Chloride Flush 3 Ml Syringe) 3 ml IVFLUSH QSHIFT [facility] Last Admin: 08/30/22 07:35 Dose: Not Given Documented By: WANDY Non-Admin Reason: See Note Labs 08/30/22 06:09 08/30/22 06:09 Labs: Laboratory Results - last 24 hr 08/29/22 08/29/22 08/29/22 12:15 12:15 12:15 MCV 92.3 MCH 29.9 MCHC 32.4 RDW 11.8 Plt Count 143 L MPV 9.4 Immature Gran % (Auto) 0.2 Neut % (Auto) 75.9 H Lymph % (Auto) 14.3 L [place] % (Auto) 8.8 Eos % (Auto) 0.2 Baso % (Auto) 0.6 Lymph # (Auto) 0.8 L [place] # (Auto) 0.5 Eos # (Auto) 0.0 Baso # (Auto) 0.0 Abs Immat Gran (auto) 0.01 Absolute Neuts (auto) 4.0 Absolute Nucleated RBC 0.000 Nucleated RBC % (auto) 0.0 Anion Gap 11 L Estim Creat Clear Calc 130.8 Estimated GFR > 60 Random Glucose 141 H Lactic Acid 2.0 Calcium 9.4 Total Bilirubin 0.2 AST 18 ALT 23 Alkaline Phosphatase 98 Total Protein 7.0 Albumin 3.8 Urine Color Urine Appearance Urine pH Ur Specific [place] Urine Protein Urine Glucose (UA) Urine Ketones Urine Blood Urine Nitrite Ur Leukocyte Esterase Urine RBC Urine WBC Ur Squamous Epith Cells Urine Bacteria Hyaline Casts 08/29/22 08/30/22 08/30/22 12:16 06:09 06:09 MCV 91.5 MCH 30.3 MCHC 33.1 RDW 11.9 Plt Count 129 L MPV 9.5 Immature Gran % (Auto) Neut % (Auto) Lymph % (Auto) [place] % (Auto) Eos % (Auto) Baso % (Auto) Lymph # (Auto) [place] # (Auto) Eos # (Auto) Baso # (Auto) Abs Immat Gran (auto) Absolute Neuts (auto) Absolute Nucleated RBC 0.000 Nucleated RBC % (auto) 0.0 Anion Gap 10 L Estim Creat Clear Calc 147.7 Estimated GFR > 60 Random Glucose 94 Lactic Acid Calcium 9.2 Total Bilirubin AST ALT Alkaline Phosphatase Total Protein Albumin Urine Color Yellow Urine Appearance Clear Urine pH 6.5 Ur Specific [place] 1.020 Urine Protein Trace Urine Glucose (UA) Negative Urine Ketones Trace Urine Blood Negative Urine Nitrite Negative Ur Leukocyte Esterase Moderate (2+) H Urine RBC 0-2 Urine WBC 11-20 H Ur Squamous Epith Cells 0-2 Urine Bacteria Trace Hyaline Casts 0-2 Assessment and Plan (1) Pyelonephritis: Status: Acute (2) Gram-negative bacteremia: Status: Acute Plan 41-year-old male with a PMH significant for MS?with severe cognitive and phy sical impairment, neurogenic bladder, depression, GERD, HLD, who presents [facility] the ED from [facility] after 1/2 blood cultures come back positive for GNR this morning. Pt will be admitted to the hospital for treatment and further evaluation of bacteremia in the setting of pyelonephritis. Bacteremia in the setting of acute pyelonephritis UA positive for UTI, no recurrent fevers, 1/2 blood cultures positive for gram negative rods, repeat blood cultures and urine are pending No leukocytosis, no tachypnea, Tachycardia chronic for past 5-6 years continue IV ceftriaxone 2g qd, started 08/29/2022 CT of abdoment/pelvis showed no hydronephrosis, suprapubic cystostomy tube in place, and large stool burden ID consult pending Follow urine, blood cultures Chronic tachycardia continue metoprolol soft blood pressures will follow, MS Continue baclofen, gabapentin, phenytoin Constipation had bowel movement,continue laxatives, stool softeners Hep C outpatient treatment as per GI Facial rash spoke with group worker patient is receiving triamcinolone by PCP left hand blisters likely due to chronic edema recommend to keep left hand elevated, no specific treatment warranted HLD Continue statin Full Code DVT Prophylaxis: Lovenox Pt will require continued inpatient hospitalization for treatment of bacteremia in the setting of pyelonephritis with IV antibiotics. Time Spent With Patient Time: Total time managing care of this patient today ____ minutes. Quality Stroke Does the patient have a stroke diagnosis?: No VTE Prior VTE?: No VTE Risk Level:: Medical - moderate - high VTE Device Contraindication: Treatment Not Indicated VTE Drug Contraindication: N/A - Med Ordered
[2022-08-30 11:11] VITALS: BP 103/62; PULSE 108; RESP 20; TEMP 36.5; O2SAT 97
[2022-08-30] MEDS: cefTRIAXone sodium 2 GM in 0.9 % Sodium Chloride 50 ML IV (11:34)
[2022-08-30] MEDS: Enoxaparin Sodium 40 MG/0.4 ML SYRINGE SUBCUT (14:29)
[2022-08-30] MEDS: Baclofen 20 MG TABLET 40 MG PO ×2 (14:29→22:07)
[2022-08-30 15:33] VITALS: BP 102/65; PULSE 101; RESP 18; TEMP 37.1; O2SAT 98
[2022-08-30 19:08] VITALS: BP 123/82; PULSE 102; RESP 18; TEMP 36.6; O2SAT 93
[2022-08-30] MEDS: Amitriptyline HCl 50 MG TABLET 100 MG PO (22:07)
[2022-08-30] MEDS: Melatonin 3 MG TABLET 6 MG PO (22:07)
[2022-08-31] VITALS: BP 113/70; PULSE 117; RESP 20; TEMP 37.3; O2SAT 95
[2022-08-31 04:00] VITALS: BP 108/60; PULSE 112; RESP 18; TEMP 37.3; O2SAT 94
[2022-08-31 07:10] VITALS: BP 101/65; PULSE 119; RESP 20; TEMP 37.2; O2SAT 93
[2022-08-31] MEDS: Gabapentin 600 MG TABLET PO (09:01)
[2022-08-31] MEDS: Sennosides 8.6 MG TABLET 17.2 MG PO (09:01)
[2022-08-31] MEDS: Docusate Sodium 100 MG/10 ML LIQUID PO (09:01)
[2022-08-31] MEDS: Atorvastatin Calcium 10 MG TABLET PO (09:01)
[2022-08-31] MEDS: Phenytoin Chewable 50 MG TAB.CHEW 100 MG PO (09:01)
[2022-08-31] MEDS: Baclofen 20 MG TABLET 40 MG PO (09:01)
[2022-08-31] MEDS: Metoprolol Succinate ER 25 MG TAB.ER.24H PO (09:01)
[2022-08-31] MEDS: 0.9 % Sodium Chloride Flush 3 ML SYRINGE IVFLUSH (09:02)
[2022-08-31] MEDS: polyethylene glycoL 3350 17 GM POWD.PACK PO (09:07)
[2022-08-31 11:10] VITALS: BP 97/59; PULSE 130; RESP 20; TEMP 37.2; O2SAT 94
[2022-08-31] MEDS: cefTRIAXone sodium 2 GM in 0.9 % Sodium Chloride 50 ML IV (12:28)
--- NOTE | 2022-08-31 13:01 | P.DS_ITS ---
DS: Providers Provider Date of Service: 08/31/22 Date of admission: 08/29/22 15:06 Primary care physician: Emma Cross MD Consults: 08/29/22 15:05 Consult to Infectious Diseases Routine Consulting Provider: [facility] Infectious Disease Reason for consultation: Bacteremia in the setting of pyelonephritis DS: Diagnosis Discharge Diagnosis (1) Pyelonephritis: Status: Acute (2) Gram-negative bacteremia: Status: Acute DS: Summary Hospital Course Hospital Course: history of presenting illness: Date of Service: 08/29/22 Attending physician on admission: Elvin Garcia Chief Complaint: UTI, +blood culture Pt is a 41-year-old male with a PMH significant for MS?with severe cognitive and physical impairment, neurogenic bladder, depression, GERD, HLD, who [facility] from [facility] after 1/2 blood cultures come back positive for GNR this morning. Pt was seen in the ED yesterday to have his suprapubic catheter placed?after the patient was unable to have the catheter replaced by visiting clinicians to the [facility].? Patient was noted to have a UTI, started on ceftriaxone and discharged on cefdinir.? Emergency room clinician spoke to Infectious Disease who asked that the pt be brought back to the ED for repeat blood cultures, CT of abdomen and pelvis, and checking blood pressure and WBC. Pt with cognitive impairment but capable of answering yes and no to questions. Denies any acute complaints.? Fever, chills, nausea, vomiting.? Denies abdominal pain.? No chest pain/pressure palpitations.? Denies shortness of breath.? Staff at [facility] states that patient has not had any notable decline or alteration in mentation. In the ED patient with low grade fever of 100.3 degrees, tachycardic up to 123. Labs were largely unremarkable:? No leukocytosis, stable H&H of 12.9/39.8,? electrolytes WNL, kidney function baseline, hepatic function baseline.? UA from yesterday on 08/28/[address] positive for [address]TI.? CT of abdomen and pelvis pending. Pt was treated with ceftriaxone and IVF. Pt will be admitted to the hospital for treatment and further evaluation of bacteremia in the setting of pyelonephritis. hospital course: 41-year-old male with a PMH significant for MS?with severe cognitive and physical impairment, neurogenic bladder, depression, GERD, HLD, who presents to the ED from [facility] after 1/2 blood cultures come back positive for GNR this morning. Pt will be admitted to the hospital for treatment and further evaluation of bacteremia in the setting of pyelonephritis. 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 Chronic tachycardia continue metoprolol . MS Continue baclofen, gabapentin, phenytoin Constipation had? bowel movement,continue laxatives, stool softeners Hep C ? outpatient treatment as per GI Facial rash? spoke with group fitness instructor patient is receiving triamcinolone? by PCP left hand blisters likely due to chronic edema recommend to keep left hand elevated, no specific treatment warranted HLD Continue statin Time Spent with Patient Time attestation: Total time managing care of this patient today ____ minutes. Discharge coordination time: Greater than 30 minutes Quality: Safe Use of Opioids Does Pt have an Active Cancer Diagnosis on the Problem List?: No Quality: Stroke Does the patient have a stroke diagnosis?: No Physical Exam Vital Signs: Vital Signs: Last Vital Signs Temp 98.9 F 08/31/22 11:10 Pulse 130 H 08/31/22 11:10 Resp 20 08/31/22 11:10 BP 97/59 L 08/31/22 11:10 Pulse Ox 94 08/31/22 11:10 O2 Del Method Room Air 08/31/22 11:10 BMI result Body Mass Index 21.5 Const: Other: Constitutional:?Alert, in no acute distress. Eyes:?Pupils are equal, round, and reactive to light. Neck supple Respiratory:?Clear to auscultation bilaterally. No wheezing, rales, or rhonchi. Cardiovascular:?S1, S2 regular, tachycardic. . No murmurs, rubs, or gallops. Gastrointestinal:?Abdomen soft, non-tender, non-distended. Normal bowel sounds. Neurologic:?Rhythmically nodding head. With contracted right arm across chest. Incapable of moving extremties. Skin: malar rash, vesicles left hand? middle and ring finger, swollen fingers. Extremities:?No edema. Mcghee with clear urine DS: Data Data Completed and Pending Labs on day of discharge: Preliminary micro results at discharge 08/29/22 12:14 Blood Culture - Preliminary Blood - Venous No growth after 24 hours. 08/29/22 12:13 Blood Culture - Preliminary Blood - Venous No growth after 24 hours. Discharge Plan Discharge Anticipated Discharge Date/Time: 08/31/22 12:29 Patient Disposition: Home, Self-Care Discharge Diagnosis: gram-negative bacteremia Referrals: Emam Cross MD [Primary Care Provider] - 1 Week Discharge Medications: New fosfomycin tromethamine 3 gram packet 1 packet PO Q3D Qty: 2 0RF Continued metoprolol succinate 25 mg tablet extended release 24 hr 25 mg PO DAILY Qty: 30 2RF acetaminophen 325 mg Tablet 650 mg PO Q8H PRN (Reason: Fever Or Pain) gabapentin 600 mg Tablet 600 mg PO TID docusate sodium [Colace] 100 mg Capsule 100 mg PO BID amitriptyline 100 mg Tablet 100 mg PO BEDTIME senna 8.6 mg Capsule 17.2 mg PO BID magnesium hydroxide [Milk of Magnesia] 400 mg/5 mL Suspension 30 ml PO DAILY PRN (Reason: Constipation) baclofen 10 mg tablet 40 mg PO TID epinephrine 0.3 mg/0.3 mL Syringe 0.3 mg IM Q15M PRN (Reason: Anaphylaxis) Rx Instructions: for 2 doses alpha lipoic acid 600 mg Tablet 600 mg PO BID atorvastatin 10 mg tablet 10 mg PO DAILY phenytoin 50 mg tablet,chewable 100 mg PO DAILY polyethylene glycol 3350 17 gram/dose powder 17 g PO BID melatonin 5 mg tablet 5 mg PO BEDTIME ascorbic acid (vitamin C) [Vitamin C] 500 mg tablet 500 mg PO BID 90 Days Qty: 180 1RF doxycycline monohydrate 100 mg tablet 100 mg PO .COMPLEX 30 Days Qty: 40 1RF Rx Instructions: 100 mg PO On day of catheter change; 1 tab before cath change and 1 tab after cath change; methenamine hippurate 1 gram tablet 1 g PO DAILY 90 Days Qty: 90 3RF Discharge Orders: Discharge Order (Routine); Ordered 08/31/22 Ordered By: Elvin Garcia Diet: Advance to usual diet Activity on Discharge: As tolerated Stand Alone Forms: Patient Portal Discharge page Care Plan Goals: Morganella morganii colonization of urine take fosfomycin packet once today and repeat in 3 days, if unable to find fosfomycin then do not need any other substitute medication change suprapubic catheter as per protocol Health Concerns: continue all home medications as before. Plan of Treatment: follow-up with primary care physician. Assessment: as above
--- NOTE | 2022-08-31 13:05 | MHC.CM.PN ---
[facility], staff at bedside requesting transport, [facility] for [facility] transport.
--- NOTE | 2022-09-07 16:55 | P.CDIM_ITS ---
PROVIDER RESPONSE TEXT: To clarify, the appropriate diagnosis supported by the clinical indicators: Chronic stable condition QUERY TEXT: PHYSICIAN'S DOCUMENTATION REQUEST Date of Query: 08/31/2022 09:23 AM EDT Patient Name: Noe Vieira Admit Date: 08/29/2022 Dear Elvin Garcia, A review of the medical record indicates additional documentation may be needed. Please review below and update the documentation accordingly. Clinical Indicators: PN: Assessment and plan - Hep C, outpatient treatment as per GI. Clarify which of the following accurately represents the acuity of the Hepatitis C: Possible options might include: Acute Acute on chronic Compensated Chronic stable condition Remission Other (explain)Clinically unable to determine (explain)Thank you, Lucy Thomas, CCS, CDIS Use of terms such as suspected, likely, concern for, or probable (associated with a specific diagnosi s that is being evaluated, monitored, or treated as if it exists) are acceptable and can be coded in the inpatient se tting, when documented at the time of discharge. Please use your independent medical judgment in providing your response. THIS QUERY IS PART OF THE PERMANENT MEDICAL RECORD
== END 2022-08-31 15:03 | disposition home or self-care (01) | DRG 463 ==
LOC: HO.ED 14:28 → HO.EDOVER 15:26 → HO.IMC 15:34
PROVIDERS: Admitting Provider Student in an Organized Health Care Education/Training Program; Emergency Provider Emergency Medicine; PCP Internal Medicine; Visit Provider Hospitalist
DX: N10 Acute pyelonephritis (principal); R78.81 Bacteremia; E78.5 Hyperlipidemia, unspecified; R23.8 Other skin changes; K59.00 Constipation, unspecified; B18.2 Chronic viral hepatitis C; R00.0 Tachycardia, unspecified; G35 Multiple sclerosis; N31.9 Neuromuscular dysfunction of bladder, unspecified; Z79.899 Other long term (current) drug therapy
CPT/HCPCS: 36415; 74176; 80048; 80053; 81001; 83605; 85025; 85027; 87040; 99222; 99285; J0696; J1650

== ENCOUNTER 2023-01-06 10:21 | Outpatient (AMB) | payer OTHER, SELFPAY ==
--- NOTE | 2023-01-06 10:26 | A.OFFVIS_ITS ---
Intake Intake Visit Reasons: 6m follow up Intake Note: Patient is Present for Telephone Follow Up Urology Med: Methenamine, Antibiotic Allergy: None Blood Thinner: None Pharamcy: [place] Allergies bee pollen [BEE STINGS] Allergy (Unknown, Verified 01/06/23 10:28) SWELLING bees, hornets, wasps Allergy (Unknown, Uncoded 01/06/23 10:28) anaphylaxis Medication List - Last Reconciled 01/06/23 by Cristi Zepeda MD acetaminophen 650 mg PO Q8H PRN alpha lipoic acid 600 mg PO BID amitriptyline 100 mg PO BEDTIME ascorbic acid (vitamin C) (Vitamin C) 500 mg PO BID 90 days atorvastatin 10 mg PO DAILY baclofen 40 mg PO TID docusate sodium (Colace) 100 mg PO BID doxycycline monohydrate 100 mg PO On day of catheter change; 1 tab before cath change and 1 tab after cath change; 30 days epinephrine 0.3 mg IM Q15M PRN fosfomycin tromethamine 1 packet PO Q3D 2 doses gabapentin 600 mg PO TID magnesium hydroxide (Milk of Magnesia) 30 mL PO DAILY PRN melatonin 5 mg PO BEDTIME methenamine hippurate 1 g PO DAILY 90 days metoprolol succinate ER 25 mg PO DAILY phenytoin 100 mg PO DAILY polyethylene glycol 3350 17 grams PO BID sennosides (senna) 17.2 mg PO BID HPI HPI Comments History of Present Illness Details Noe KIRKPATRICK s a very pleasant male. They are a patient of Dr Cross. They are seen in the office today for the following urologic conditions. - neurogenic bladder Telemedicine evaluation 15 minute consultation Doximity cecil Video attempted Suprapubic tube changed every 3 weeks Continued without UTI since last evaluation This is been significant improvement Receives doxycycline the morning and afternoon of catheter change Daily to methenamine with vitamin-C Neurogenic Bladder:? They are here for ?further management for incomplete emptying neurogenic bladder ?- can be changed at facility ? Urinary retention initially found?progressive development over time.? Associated conditions? Alzhiemers ?No ? CAD ?No ? CVA ?No ? Diabetes ?No ? Multiple sclerosis ?Yes ? renal replacement therapy ?No ? Spinal injury/surgery ?No ? Current management?SPT placed in hospital for retention and UTI.? Therapeutic plan?change SPT q2-3 weeks at facility.? PFSH Medical History Multiple sclerosis Constipation Neuromyopathy UTI (urinary tract infection) Suprapubic catheter Hepatitis C Multiple sclerosis Social History Household Members: Other Household Members Other:: pt Alcohol intake: never Patient Tobacco Use Status: Never used Tobacco Advance Directives Date on File: 04/16/20 service: No Current occupational status: disabled Review of Systems Const All systems reviewed & are unremarkable except as noted in HPI and below Reports no additional complaints Resp Reports no additional complaints GI Reports no additional complaints Reports as per HPI Musc Reports no additional complaints Physical Exam Telemedicine evaluation Appropriate responses Regular breathing rate and rhythm HEENT Head: Yes normal to inspection Ears: hearing grossly normal bilaterally Eyes General: appearance normal, both eyes and all related structures Neck Neck: Yes normal visual inspection Chest Chest palpation & inspection: normal inspection of the chest Resp Effort & Inspection: normal respiratory effort and able to speak in complete sentences Assessment & Plan Assessment & Plan (1) Urinary retention with incomplete bladder emptying: Code(s): R33.9 - Retention of urine, unspecified (2) Suprapubic catheter: Code(s): Z93.59 - Other cystostomy status Plan Six month follow-up office Medications: Refilled doxycycline monohydrate 100 mg PO On day of catheter change; 1 tab before cath change and 1 tab after cath change; 30 days 40 tabs 1RF ascorbic acid (vitamin C) (Vitamin C) 500 mg PO BID 90 days 180 tabs 1RF Patient Instructions: Imaging studies, laboratory and physical exam results were discussed and reviewed in detail. No major barriers to patient understanding were identified. An opportunity to ask questions regarding the treatment plan was provided. All questions were answered. The patient expressed understanding and agreement with the above treatment plan. The patient is aware they should contact our office by phone for worsening of their current condition or the appearance of new urologic symptoms. Compliance is encouraged with any medications and followup testing that is ordered. It is a privilege to participate in the urologic care of your patient. If you have any questions or concerns regarding treatment for the above conditions, or other urologic issues, please do not hesitate to contact me. The office tel ephone contact is [phone]. This note is constructed using voice recognition software. While every effort has been made to ensure accuracy sandblaster supervisor errors may have been included. Yours sincerely, Dr Cristi Zepeda MD, [facility] - Urology Providers of Expert, Compassionate Care for the Genitourinary System Telehealth Telehealth Location of provider rendering services: practice address Location of patient: address on file Patient Identification confirmed using: Name, : Yes Telehealth method: video Patient verbally consented to treatment: Yes Patient verbally consented to billing insurance company: Yes Patient informed of any privacy concerns related to visit: Yes Coding Level of Care Code Tele Est Pt Level 3 (08054) Diagnoses Urinary retention with incomplete bladder emptying R33.9 Suprapubic catheter Z93.59
== END 2023-01-06 14:04 | disposition home or self-care (01) ==
LOC: HO.HUSH 10:21
PROVIDERS: PCP Internal Medicine; Visit Provider Urology
DX: R33.9 Retention of urine, unspecified (principal); Z93.59 Other cystostomy status
CPT/HCPCS: 99213

== ENCOUNTER → 2023-01-06 10:21 | Outpatient (BNVA) | payer OTHER, SELFPAY | PROVIDERS: PCP Internal Medicine; Visit Provider Urology ==

== ENCOUNTER 2023-01-21 17:19 | Inpatient (IN) | payer OTHER, SELFPAY ==
--- NOTE | ~2023-01-21 | XR_ITS ---
EXAMINATION: XR CHEST CLINICAL INFORMATION: Aspiration/pneumonia. COMPARISON: Chest radiograph 08/28/2022. TECHNIQUE: AP view of the chest was obtained. FINDINGS: No significant abnormality is noted involving the heart, lungs, mediastinum, bony thorax or soft tissues. XR/XR chest 1V IMPRESSION: Unremarkable examination.
[2023-01-21 17:29] VITALS: BP 133/79; PULSE 86; O2SAT 100
[2023-01-21 17:49] VITALS: BP 111/78; PULSE 80; RESP 16; TEMP 37.2; O2SAT 97; BMI 20.2
--- NOTE | 2023-01-21 18:35 | ECG_ITS ---
Test Reason : lethargy Blood Pressure : / mmHG Vent. Rate : 078 BPM Atrial Rate : 078 BPM P-R Int : 146 ms QRS Dur : 104 ms QT Int : 372 ms P-R-T Axes : 065 074 060 degrees QTc Int : 424 ms Normal sinus rhythm RSR' or QR pattern in V1 suggests right ventricular conduction delay Intra-ventricular conduction delay Borderline ECG When compared with ECG of 27-DEC-2021 17:38, Vent. rate has decreased BY 39 BPM Referred By: Trinity Gamble Electronically Signed By:BRIAN FREEDMAN MD
--- NOTE | 2023-01-21 18:38 | ED.AMS ---
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 Patient has history of advanced multiple sclerosis and patient is unable to speak. Patient was brought to emergency room because they have noticed that the patient is more lethargic than baseline. To their knowledge, patient has not had any URI symptoms. Patient has a suprapubic catheter, they were concerned that smells like a UTI. According to the caretakers, the patient does develop UTIs every few months. also, the senior living reported that a few days ago, patient may have choked on some food. Patient has had multiple swallow eval studies, seems that his baseline has not changed. However, since the last swallow eval at [facility], the staff has noted that patient seems to have more trouble swallowing. Patient is on a honey thick liquid/pureed diet Related Data Home Medications Medication Instructions Recorded Confirmed acetaminophen 325 mg tablet 650 mg PO Q8H PRN Fever Or Pain 04/14/20 01/06/23 amitriptyline 100 mg tablet 100 mg PO BEDTIME 04/14/20 01/06/23 docusate sodium 100 mg capsule 100 mg PO BID 04/14/20 01/06/23 (Colace) gabapentin 600 mg tablet 600 mg PO TID PAIN 04/14/20 01/06/23 sennosides 8.6 mg capsule (senna) 17.2 mg PO BID Constipation 04/14/20 01/06/23 melatonin 5 mg tablet 5 mg PO BEDTIME 07/09/22 01/06/23 polyethylene glycol 3350 17 17 g PO BID 07/09/22 01/06/23 gram/dose oral powder alpha lipoic acid 600 mg tablet 600 mg PO BID 08/29/22 01/06/23 atorvastatin 10 mg tablet 10 mg PO DAILY 08/29/22 01/06/23 baclofen 10 mg tablet 40 mg PO TID 08/29/22 01/06/23 epinephrine 0.3 mg/0.3 mL 0.3 mg IM Q15M PRN Anaphylaxis 08/29/22 01/06/23 injection syringe magnesium hydroxide 400 mg/5 mL 30 ml PO DAILY PRN Constipation 08/29/22 01/06/23 oral suspension (Milk of Magnesia) phenytoin 50 mg chewable tablet 100 mg PO DAILY 08/29/22 01/06/23 Previous Rx's Medication Instructions Recorded metoprolol succinate 25 mg 25 mg PO DAILY hypertension #30 09/13/20 tablet,extended release 24 hr tabs methenamine hippurate 1 gram tablet 1 g PO DAILY 90 days #90 tabs 07/09/22 fosfomycin tromethamine 3 gram 1 packet PO Q3D 2 doses #2 ea 08/31/22 oral packet ascorbic acid (vitamin C) 500 mg 500 mg PO BID 90 days #180 tabs 01/06/23 tablet (Vitamin C) doxycycline monohydrate 100 mg 100 mg PO .COMPLEX 30 days #40 tabs 01/06/23 tablet Allergies Allergy/AdvReac Type Severity Reaction Status Date / Time bee pollen [BEE STINGS] Allergy Unknown SWELLING Verified 01/06/23 10:28 bees, hornets, wasps Allergy Unknown anaphylaxis Uncoded 01/06/23 10:28 Review of Systems Review of Systems: Yes Unobtainable due to mental condition [facility] Past Medical History Medical History Multiple sclerosis Constipation Neuromyopathy UTI (urinary tract infection) Suprapubic catheter Hepatitis C Multiple sclerosis Social History Social History Household Members: Other Household Members Other:: pt Unable to assess alcohol history related to: Unknown Alcohol intake: never Patient Tobacco Use Status: Never used Tobacco Use of substances other than those prescribed or required for medical reasons: Unknown Advance Directives: Yes Advance Directives on File: Yes Advance Directives Date on File: 04/16/20 service: No Current occupational status: disabled Physical Exam ED Vital Signs: Vital Signs - 24 hr 01/21/23 17:49 Temperature 98.9 F Pulse Rate 80 Respiratory Rate 16 Blood Pressure 111/78 Pulse Oximetry 97 Oxygen Delivery Method Room Air BMI result Body Mass Index 20.2 Const Other: Appearance: Alert. no acute distress, able to answer some questions by nodding head yes or no Eyes: Pupils equal, round and reactive to light. ENT: Pharynx normal. Neck: Normal inspection. Neck supple. No lymph nodes noted. No crepitus CVS: Normal heart rate and rhythm. Pulses normal. Normal S1 and S2 Respiratory: No respiratory distress. Breath sounds normal. No Wheezing. No rales Abdomen: Soft and nontender. No rigidity. No distention. Skin: Skin warm and dry. Normal skin color. Normal skin turgor. Extremities: No lower extremity edema. No Lacerations. No Rash Neuro: patient able to move head moving yes no. patient cannot participate in cranial nerve assessment Psych: calm Course Course Course Narrative: - all of patient's labs and imaging pending - swallow evaluation has been requested to be done at bedside the patient nurse Medical Decision Making Medical Decision Making [facility] Narrative: - patient does have a UTI. - I reviewed patient's records, back in August of 2022, patient had a UTI . Urinalysis Showed UTI, urine culture did not grow much. However, few days later patient became septic, blood cultures grew Morganella. Patient was treated with fosamycin which was recommended by Infectious Disease. However, we do not have this medication in stock, therefore we will give him gentamicin -my interpretation of cxr, no pna - sepsis is not suspected, normal vitals, normal wb c -lactic 2.1 likely due to dehydration Differential Diagnosis Differential Diagnoses: The differential diagnosis associated with the presentation includes ( UTI, pyelonephritis, pneumonia) Admission/Observation Consideration of admission/observation: Escalation of care including admission/observation considered Consult Healthcare Provider Management of the patient was discussed with: Hospitalist Lab Data [facility] Lab Attestation statement: I reviewed the patient's lab results. 01/21/23 19:52 01/21/23 19:52 Labs: Lab Results 01/21/23 01/21/23 01/21/23 Range/Units 19:51 19:52 19:53 WBC 9.4 (4.8-10.8) X10*3/uL RBC 4.59 L (4.60-5.80) X10*6/uL Hgb 13.8 L (14.0-18.0) g/dl Hct 42.6 (42.0-52.0) % MCV 92.8 (80.0-98.0) fL MCH 30.1 (27.0-33.0) pg MCHC 32.4 (31.0-36.0) g/dl RDW 12.2 (11.0-16.0) % Plt Count 211 D (160-400) X10*3/uL MPV 9.3 L (9.4-12.4) fL Immature Gran % (Auto) 0.2 (0.0-0.4) % Neut % (Auto) 66.1 (45-73) % Lymph % (Auto) 25.4 (20-40) % [place] % (Auto) 6.6 (2-11) % Eos % (Auto) 1.4 (0-4) % Baso % (Auto) 0.3 (0-2) % Lymph # (Auto) 2.4 (1.2-4.9) X10*3/uL [place] # (Auto) 0.6 (0.1-1.2) X10*3/uL Eos # (Auto) 0.1 (0.0-0.4) X10*3/uL Baso # (Auto) 0.0 (0.0-0.2) X10*3/uL Abs Immat Gran (auto) 0.02 (0.00-0.03) X10*3/uL Absolute Neuts (auto) 6.2 (2.0-8.3) x10*3/uL Absolute Nucleated RBC 0.000 (0.0-0.012) X10*3/uL Nucleated RBC % (auto) 0.0 (0.0-0.2) /100WBC Sodium 142 (135-145) mmol/L Potassium 4.5 (3.3-5.1) mmol/L Chloride 104 (96-108) mmol/L Carbon Dioxide 29 (22-29) mmol/L Anion Gap 14 (12-20) BUN 15 (9-16) mg/dL Creatinine 0.64 (0.5-1.4) mg/dL Estim Creat Clear Calc 129.1 Estimated GFR > 60 Random Glucose 75 (60-115) mg/dL Lactic Acid 2.1 H* (0.5-2.0) mmol/L Calcium 9.7 (8.4-10.2) mg/dL Magnesium 2.2 (1.6-2.6) mg/dL Total Bilirubin 0.3 (0.0-1.0) mg/dL Direct Bilirubin 0.1 (0.0-0.5) mg/dL AST 14 (5-37) U/L ALT 15 (0-40) U/L Alkaline Phosphatase 108 (39-117) U/L Troponin I High Sens < 2.7 (<3.5-35.0) ng/L Total Protein 7.5 (6.5-8.0) g/dL Albumin 4.0 (3.5-5.0) g/dL Urine Color Urine Appearance Urine pH (5.0-9.0) Ur Specific [place] (1.005-1.025) Urine Protein (Neg-Trace) mg/dL Urine Glucose (UA) (Negative) mg/dL Urine Ketones (Negative) mg/dL Urine Blood (Negative) Urine Nitrite (Negative) Ur Leukocyte Esterase (Negative) Urine RBC (0-2) /HPF Urine WBC (0-5) /HPF Ur Squamous Epith Cells (0-2) /HPF Urine Bacteria (None Seen) Hyaline Casts (0-2) /LPF COVID-19 ([facility]) Negative (Negative) COVID-19 Clin Com See Note 01/21/23 Range/Units 20:53 WBC (4.8-10.8) X10*3/uL RBC (4.60-5.80) X10*6/uL Hgb (14.0-18.0) g/dl Hct (42.0-52.0) % MCV (80.0-98.0) fL MCH (27.0-33.0) pg MCHC (31.0-36.0) g/dl RDW (11.0-16.0) % Plt Count (160-400) X10*3/uL MPV (9.4-12.4) fL Immature Gran % (Auto) (0.0-0.4) % Neut % (Auto) (45-73) % Lymph % (Auto) (20-40) % [place] % (Auto) (2-11) % Eos % (Auto) (0-4) % Baso % (Auto) (0-2) % Lymph # (Auto) (1.2-4.9) X10*3/uL [place] # (Auto) (0.1-1.2) X10*3/uL Eos # (Auto) (0.0-0.4) X10*3/uL Baso # (Auto) (0.0-0.2) X10*3/uL Abs Immat Gran (auto) (0.00-0.03) X10*3/uL Absolute Neuts (auto) (2.0-8.3) x10*3/uL Absolute Nucleated RBC (0.0-0.012) X10*3/uL Nucleated RBC % (auto) (0.0-0.2) /100WBC Sodium (135-145) mmol/L Potassium (3.3-5.1) mmol/L Chloride (96-108) mmol/L Carbon Dioxide (22-29) mmol/L Anion Gap (12-20) BUN (9-16) mg/dL Creatinine (0.5-1.4) mg/dL Estim Creat Clear Calc Estimated GFR Random Glucose (60-115) mg/dL Lactic Acid (0.5-2.0) mmol/L Calcium (8.4-10.2) mg/dL Magnesium (1.6-2.6) mg/dL Total Bilirubin (0.0-1.0) mg/dL Direct Bilirubin (0.0-0.5) mg/dL AST (5-37) U/L ALT (0-40) U/L Alkaline Phosphatase (39-117) U/L Troponin I High Sens (<3.5-35.0) ng/L Total Protein (6.5-8.0) g/dL Albumin (3.5-5.0) g/dL Urine Color Dark Yellow Urine Appearance Turbid Urine pH 7.0 (5.0-9.0) Ur Specific [place] 1.025 (1.005-1.025) Urine Protein 100 (2+) H (Neg-Trace) mg/dL Urine Glucose (UA) Negative (Negative) mg/dL Urine Ketones Trace (Negative) mg/dL Urine Blood Small (1+) H (Negative) Urine Nitrite Positive H (Negative) Ur Leukocyte Esterase Moderate (2+) H (Negative) Urine RBC >20 H (0-2) /HPF Urine WBC >50 H (0-5) /HPF Ur Squamous Epith Cells 0-2 (0-2) /HPF Urine Bacteria 4+ (None Seen) Hyaline Casts 11-20 (0-2) /LPF COVID-19 ([facility]) (Negative) COVID-19 Clin Com Independent Interpretation I performed an independent interpretation of an: Plain X-Ray Independent Historian Clinical information obtained from an independent historian. History obtained from or confirmed by: Other ( senior living staff) External Record Review External record reviewed: Inpatient record Critical Care Time Critical Care Time Critical Care Time: Yes Total Critical Care Time: 60 Attestation: I have personally provided critical care time. Time includes review of lab data, radiology results, discussion with consultants, and monitoring for potential decompensation. Intervention performed as documented. Discharge Plan Discharge Clinical Impression: Acute UTI Patient Disposition: Admitted As Inpatient Prescriptions: No Action metoprolol succinate 25 mg tablet extended release 24 hr 25 mg PO DAILY Qty: 30 2RF acetaminophen 325 mg Tablet 650 mg PO Q8H PRN (Reason: Fever Or Pain) gabapentin 600 mg Tablet 600 mg PO TID docusate sodium [Colace] 100 mg Capsule 100 mg PO BID amitriptyline 100 mg Tablet 100 mg PO BEDTIME senna 8.6 mg Capsule 17.2 mg PO BID magnesium hydroxide [Milk of Magnesia] 400 mg/5 mL Suspension 30 ml PO DAILY PRN (Reason: Constipation) baclofen 10 mg tablet 40 mg PO TID epinephrine 0.3 mg/0.3 mL Syringe 0.3 mg IM Q15M PRN (Reason: Anaphylaxis) Rx Instructions: for 2 doses alpha lipoic acid 600 mg Tablet 600 mg PO BID atorvastatin 10 mg tablet 10 mg PO DAILY phenytoin 50 mg tablet,chewable 100 mg PO DAILY fosfomycin tromethamine 3 gram packet 1 packet PO Q3D Qty: 2 0RF polyethylene glycol 3350 17 gram/dose powder 17 g PO BID melatonin 5 mg tablet 5 mg PO BEDTIME methenamine hippurate 1 gram tablet 1 g PO DAILY 90 Days Qty: 90 3RF doxycycline monohydrate 100 mg tablet 100 mg PO .COMPLEX 30 Days Qty: 40 1RF Rx Instructions: 100 mg PO On day of catheter change; 1 tab before cath change and 1 tab after cath change; ascorbic acid (vitamin C) [Vitamin C] 500 mg tablet 500 mg PO BID 90 Days Qty: 180 1RF
[2023-01-21 20:00] LABS: MANUAL DIFF FLAG NO
[2023-01-21 20:13] LABS: Lactic Acid 2.1 mmol/L (0.5-2.0)
[2023-01-21 20:13] LABS: COVID-19 Test Negative (Negative); IDNOW Serial# 08D9AD1C
[2023-01-21 20:15] LABS: Alanine Aminotransferase 15 U/L (0-40); Alkaline Phosphatase 108 U/L (39-117); Anion Gap 14 (12-20); Aspartate Amino Transferase 14 U/L (5-37); Basophils Percent Auto 0.3 % (0-2); Bilirubin Direct 0.1 mg/dL (0.0-0.5); Bilirubin Total 0.3 mg/dL (0.0-1.0); Blood Urea Nitrogen 15 mg/dL (9-16); Calcium 9.7 mg/dL (8.4-10.2); Carbon Dioxide 29 mmol/L (22-29); Chloride 104 mmol/L (96-108); Creatinine Clr Calc Pharmacy 129.1; Eosinophils Absolute Auto 0.1 X10*3/uL (0.0-0.4); Eosinophils Percent Auto 1.4 % (0-4); Estimated Glomerular Filt Rate > 60; Glucose Random 75 mg/dL (60-115); Hematocrit 42.6 % (42.0-52.0); Hemoglobin 13.8 g/dl (14.0-18.0); Imm Gran Abs Auto 0.02 X10*3/uL (0.00-0.03); Imm Gran Pct Auto 0.2 % (0.0-0.4); Lymphocytes Absolute Auto 2.4 X10*3/uL (1.2-4.9); Lymphocytes Percent Auto 25.4 % (20-40); Magnesium 2.2 mg/dL (1.6-2.6); Mean Corpuscular HGB Conc 32.4 g/dl (31.0-36.0); Mean Corpuscular Hemoglobin 30.1 pg (27.0-33.0); Mean Corpuscular Volume 92.8 fL (80.0-98.0); Mean Platelet Volume 9.3 fL (9.4-12.4); Monocytes Absolute Auto 0.6 X10*3/uL (0.1-1.2); Monocytes Percent Auto 6.6 % (2-11); Neutrophils Absolute Auto 6.2 x10*3/uL (2.0-8.3); Neutrophils Percent Auto 66.1 % (45-73); Platelet Count 211 X10*3/uL (160-400); Potassium 4.5 mmol/L (3.3-5.1); Red Blood Count 4.59 X10*6/uL (4.60-5.80); Red Cell Distribution Width 12.2 % (11.0-16.0); Sodium 142 mmol/L (135-145); Total Protein 7.5 g/dL (6.5-8.0); White Blood Count 9.4 X10*3/uL (4.8-10.8)
[2023-01-21 20:24] LABS: Troponin-I High Sensitivity < 2.7 ng/L (<3.5-35.0)
[2023-01-21 21:05] LABS: Appearance Urine Turbid; Color Urine Dark Yellow; Glucose Urine UA Negative (Negative); Leukocyte Esterase Urine Moderate (2+) (Negative); Nitrite Urine Positive (Negative); Specific Gravity - Urine 1.025 (1.005-1.025); UMIC TRIGGER UACC YES; Urine Blood Small (1+) (Negative); Urine Ketones Trace mg/dL (Negative); Urine Protein 100 (2+) mg/dL (Neg-Trace)
[2023-01-21 21:13] LABS: Bacteria Urine 4+ (None Seen); RBC Urine >20 /HPF (0-2); Squamous Epithelial Cell Urine 0-2 /HPF (0-2); UACC Culture Trigger YES; WBC Urine >50 /HPF (0-5)
--- NOTE | 2023-01-21 21:31 | PM.IMHP ---
History of Present Illness Date of Service: 01/21/23 Chief Complaint: Lethargy, AMS This is a 42-year-old male with pertinent history of multiple sclerosis with cognitive and physical impairment, neurogenic bladder status post suprapubic colostomy, mood disorder, essential hypertension, hepatitis-C, mixed hyperlipidemia who was sent to the emergency department from residential for lethargy and confusion. Staff at residential noticed change in order from suprapubic catheter. Unable to obtain any history from the patient. Does have a history of frequent UTI. The construction producer at residential also concern for choking/coughing with p.o. intake. Patient is on a pureed diet with thickened liquids at baseline. Unable to obtain review of systems. In the emergency department, urine was concerning for UTI and patient was initiated on empiric IV antibiotics. Review of Systems Review of Systems: Yes Unobtainable due to mental condition [facility] Medical History Multiple sclerosis Constipation Neuromyopathy UTI (urinary tract infection) Suprapubic catheter Hepatitis C Multiple sclerosis Pertinent family history: Unable to obtain Social History Household Members: Other Household Members Other:: pt Unable to assess alcohol history related to: Unknown Alcohol intake: never Patient Tobacco Use Status: Never used Tobacco Use of substances other than those prescribed or required for medical reasons: Unknown Advance Directives: Yes Advance Directives on File: Yes Advance Directives Date on File: 04/16/20 service: No Current occupational status: disabled Meds Allergies Allergy/AdvReac Type Severity Reaction Status Date / Time bee pollen [BEE STINGS] Allergy Unknown SWELLING Verified 01/06/23 10:28 bees, hornets, wasps Allergy Unknown anaphylaxis Uncoded 01/06/23 10:28 Active Medications: Current Medications Sodium Chloride (Ns) 1,000 mls @ 999 mls/hr IVCONT .Q1H1M ONE Stop: 01/21/23 22:25 Sodium Chloride (Ns) 1,860 mls @ 1,860 mls/hr 30 ml/kg infuse over 1 hr (1860 ml) IV .Q1H STA Stop: 01/21/23 22:24 Gentamicin Sulfate 310 mg/ (Sodium Chloride) 107.75 mls @ 107.75 mls/hr IV ONCE ONE Stop: 01/21/23 22:29 Home Medications Medication Instructions Recorded Confirmed Last Taken Type acetaminophen 325 mg tablet 650 mg PO Q8H PRN Fever Or Pain 04/14/20 01/06/23 Unknown History amitriptyline 100 mg tablet 100 mg PO BEDTIME 04/14/20 01/06/23 Unknown History docusate sodium 100 mg capsule 100 mg PO BID 04/14/20 01/06/23 Unknown History (Colace) gabapentin 600 mg tablet 600 mg PO TID PAIN 04/14/20 01/06/23 Unknown History sennosides 8.6 mg capsule (senna) 17.2 mg PO BID Constipation 04/14/20 01/06/23 Unknown History melatonin 5 mg tablet 5 mg PO BEDTIME 07/09/22 01/06/23 Unknown History polyethylene glycol 3350 17 17 g PO BID 07/09/22 01/06/23 Unknown History gram/dose oral powder alpha lipoic acid 600 mg tablet 600 mg PO BID 08/29/22 01/06/23 Unknown History atorvastatin 10 mg tablet 10 mg PO DAILY 08/29/22 01/06/23 Unknown History baclofen 10 mg tablet 40 mg PO TID 08/29/22 01/06/23 Unknown History epinephrine 0.3 mg/0.3 mL 0.3 mg IM Q15M PRN Anaphylaxis 08/29/22 01/06/23 Unknown History injection syringe magnesium hydroxide 400 mg/5 mL 30 ml PO DAILY PRN Constipation 08/29/22 01/06/23 Unknown History oral suspension (Milk of Magnesia) phenytoin 50 mg chewable tablet 100 mg PO DAILY 08/29/22 01/06/23 Unknown History Physical Exam Vital Signs and Narrative: Vital Signs: Last Vital Signs Temp 98.9 F 01/21/23 17:49 Pulse 80 01/21/23 17:49 Resp 16 01/21/23 17:49 BP 111/78 01/21/23 17:49 Pulse Ox 97 01/21/23 17:49 O2 Del Method Room Air 01/21/23 17:49 BMI result Body Mass Index 20.2 Middle-aged male lying in bed in no distress Neck supple, no JVD Regular rate and rhythm, S1-S2 heard Regular breath sounds bilaterally, no wheezing or crackles appreciated Abdomen soft nontender, no guarding, no rigidity, suprapubic catheter in place Patient is awake, nodding head occasionally to questions, unable to assess orientation Extremities: Contracted Psych: Normal mood No pedal edema Results Labs 01/21/23 19:52 01/21/23 19:52 Labs: Laboratory Results - last 24 hr 01/21/23 01/21/23 01/21/23 19:51 19:52 19:53 MCV 92.8 MCH 30.1 MCHC 32.4 RDW 12.2 Plt Count 211 D MPV 9.3 L Immature Gran % (Auto) 0.2 Neut % (Auto) 66.1 Lymph % (Auto) 25.4 [place] % (Auto) 6.6 Eos % (Auto) 1.4 Baso % (Auto) 0.3 Lymph # (Auto) 2.4 [place] # (Auto) 0.6 Eos # (Auto) 0.1 Baso # (Auto) 0.0 Abs Immat Gran (auto) 0.02 Absolute Neuts (auto) 6.2 Absolute Nucleated RBC 0.000 Nucleated RBC % (auto) 0.0 Anion Gap 14 Estim Creat Clear Calc 129.1 Estimated GFR > 60 Random Glucose 75 Lactic Acid 2.1 H* Calcium 9.7 Magnesium 2.2 Total Bilirubin 0.3 Direct Bilirubin 0.1 AST 14 ALT 15 Alkaline Phosphatase 108 Total Protein 7.5 Albumin 4.0 Urine Color Urine Appearance Urine pH Ur Specific [place] Urine Protein Urine Glucose (UA) Urine Ketones Urine Blood Urine Nitrite Ur Leukocyte Esterase Urine RBC Urine WBC Ur Squamous Epith Cells Urine Bacteria Hyaline Casts COVID-19 ([facility]) Negative COVID-19 Clin Com See Note 01/21/23 20:53 MCV MCH MCHC RDW Plt Count MPV Immature Gran % (Auto) Neut % (Auto) Lymph % (Auto) [place] % (Auto) Eos % (Auto) Baso % (Auto) Lymph # (Auto) [place] # (Auto) Eos # (Auto) Baso # (Auto) Abs Immat Gran (auto) Absolute Neuts (auto) Absolute Nucleated RBC Nucleated RBC % (auto) Anion Gap Estim Creat Clear Calc Estimated GFR Random Glucose Lactic Acid Calcium Magnesium Total Bilirubin Direct Bilirubin AST ALT Alkaline Phosphatase Total Protein Albumin Urine Color Dark Yellow Urine Appearance Turbid Urine pH 7.0 Ur Specific [place] 1.025 Urine Protein 100 (2+) H Urine Glucose (UA) Negative Urine Ketones Trace Urine Blood Small (1+) H Urine Nitrite Positive H Ur Leukocyte Esterase Moderate (2+) H Urine RBC >20 H Urine WBC >50 H Ur Squamous Epith Cells 0-2 Urine Bacteria 4+ Hyaline Casts 11-20 COVID-19 ([facility]) COVID-19 Clin Com Imaging Radiologist's Impressions: Impressions Chest X-Ray 01/21/23 18:48 IMPRESSION: Unremarkable examination. Assessment and Plan (1) Acute UTI: Status: Acute (2) Acute metabolic encephalopathy: Status: Acute Plan This is a 42-year-old male with pertinent history of multiple sclerosis with cognitive and physical impairment, neurogenic bladder status post suprapubic colostomy, mood disorder, essential hypertension, hepatitis-C, mixed hyperlipidemia who was sent to the emergency department from residential for lethargy and confusion. #. Acute metabolic encephalopathy in the setting of acute UTI: Reviewed previous urine cultures, initiating empiric IV antibiotics. Follow urine culture. No sepsis. #. Questionable aspiration: Consulting speech to evaluate and treat #. Multiple sclerosis: Continue baclofen, gabapentin and phenytoin #. Hepatitis-C: Outpatient follow-up with GI #. Essential hypertension: On metoprolol #. Mixed hyperlipidemia: On statin Med rec pending Full code DVT prophylaxis: Lovenox Admit as inpatient and will require two night minimum hospital stay for IV antibiotics (as above), which is not possible in a lesser acute setting. Quality Stroke Does the patient have a stroke diagnosis?: No VTE Prior VTE?: No VTE Risk Level:: Medical - moderate - high VTE Device Contraindication: Treatment Not Indicated VTE Drug Contraindication: N/A - Med Ordered
[2023-01-21 21:57] LABS: Reflex Lactate? Lactic Acid Added
[2023-01-21 22:25] LABS: ~Lactic Acid-LAB USE ONLY 0.6 mmol/L (0.5-2.0)
[2023-01-21] MEDS: 0.9 % Sodium Chloride 1,860 ML 1860 ML IV (22:28)
[2023-01-22] VITALS (7 sets, daily range): BP systolic 112–125; BP diastolic 68–74; PULSE 84–110; RESP 16–18; TEMP 35.9–37.1; O2SAT 93–98; BMI 19.9
[2023-01-22] MEDS: cefTRIAXone sodium 1 GM in 0.9 % Sodium Chloride 50 ML IV ×2 (00:16→22:00)
[2023-01-22] MEDS: Enoxaparin Sodium 40 MG/0.4 ML SYRINGE SUBCUT ×2 (00:17→21:04)
[2023-01-22] MEDS: 0.9 % Sodium Chloride 1,000 ML 999 ML IVCONT (00:17)
--- NOTE | 2023-01-22 02:55 | PC.NURSE ---
Influenza vaccine administered as per charge nurse and half-way caregiver who accompanied patient to [place] [id number] admission from Ed setting. Call placed to administer of half-way by their employee/caregiver with pt., pt has not yet received and asking to be given. vaccine to left deltoid, 0250, 01-22-23, tolerated well.
--- NOTE | 2023-01-22 07:28 | PHA.MEDREC ---
Pharmacy Consult ? Medication Reconciliation Pharmacy has completed the medication reconciliation (done by Mely Shanks on 01/21/23 at 2100).
[2023-01-22] MEDS: 0.9 % Sodium Chloride Flush 3 ML SYRINGE IVFLUSH ×3 (08:37→21:04)
--- NOTE | 2023-01-22 09:02 | MHC.IC ---
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
--- NOTE | 2023-01-22 10:30 | P.PNIM_ITS ---
Subjective Subjective Date of Service: 01/22/23 Review of Systems Review of Systems: Yes Unobtainable due to mental condition Physical Exam 2 Vital Signs: Vital Signs: Last Vital Signs Temp 96.9 F 01/22/23 07:26 Pulse 88 01/22/23 07:26 Resp 16 01/22/23 07:26 BP 112/69 01/22/23 07:26 Pulse Ox 98 01/22/23 07:26 O2 Del Method Room Air 01/22/23 07:26 BMI result Body Mass Index 19.9 alert, no acute distress, non verbal Objective Data Active Medications Acetaminophen (Acetaminophen 325 Mg Tablet) 650 mg PO Q6H PRN PRN Reason: Pain, Mild (Pain Scale 1-3) Acetaminophen (Acetaminophen Supp 650 Mg Supp.Rect) 650 mg RI Q6H PRN PRN Reason: Pain, Mild (Pain Scale 1-3) Enoxaparin Sodium (Enoxaparin Sodium 40 Mg/0.4 Ml Syringe) 40 mg SUBCUT Q24H [facility] Last Admin: 01/22/23 00:17 Dose: 40 mg Documented By: ISI Ceftriaxone Sodium 1 gm/ (Sodium Chloride) 50 mls @ 100 mls/hr IV Q24H [facility] Last Infusion: 01/22/23 01:23 Dose: Infused Documented By: RYAN Melatonin (Melatonin 3 Mg Tablet) 6 mg PO BEDTIME PRN PRN Reason: Insomnia Ondansetron HCl (Ondansetron Hcl 4 Mg/2 Ml Vial) 4 mg IVPUSH Q8H PRN PRN Reason: Nausea and Vomiting Sodium Chloride (0.9 % Sodium Chloride Flush 3 Ml Syringe) 3 ml IVFLUSH QSHIFT [facility] Last Admin: 01/22/23 08:37 Dose: 3 ml Documented By: SARITA Labs 01/21/23 19:52 01/21/23 19:52 Labs: Laboratory Results - last 24 hr 01/21/23 01/21/23 01/21/23 19:51 19:52 19:53 MCV 92.8 MCH 30.1 MCHC 32.4 RDW 12.2 Plt Count 211 D MPV 9.3 L Immature Gran % (Auto) 0.2 Neut % (Auto) 66.1 Lymph % (Auto) 25.4 [place] % (Auto) 6.6 Eos % (Auto) 1.4 Baso % (Auto) 0.3 Lymph # (Auto) 2.4 [place] # (Auto) 0.6 Eos # (Auto) 0.1 Baso # (Auto) 0.0 Abs Immat Gran (auto) 0.02 Absolute Neuts (auto) 6.2 Absolute Nucleated RBC 0.000 Nucleated RBC % (auto) 0.0 Anion Gap 14 Estim Creat Clear Calc 129.1 Estimated GFR > 60 Random Glucose 75 Lactic Acid 2.1 H* Lactic Acid F/U @ 2Hr Calcium 9.7 Magnesium 2.2 Total Bilirubin 0.3 Direct Bilirubin 0.1 AST 14 ALT 15 Alkaline Phosphatase 108 Total Protein 7.5 Albumin 4.0 Urine Color Urine Appearance Urine pH Ur Specific [place] Urine Protein Urine Glucose (UA) Urine Ketones Urine Blood Urine Nitrite Ur Leukocyte Esterase Urine RBC Urine WBC Ur Squamous Epith Cells Urine Bacteria Hyaline Casts COVID-19 ([facility]) Negative COVID-19 Clin Com See Note 01/21/23 01/21/23 20:53 22:09 MCV MCH MCHC RDW Plt Count MPV Immature Gran % (Auto) Neut % (Auto) Lymph % (Auto) [place] % (Auto) Eos % (Auto) Baso % (Auto) Lymph # (Auto) [place] # (Auto) Eos # (Auto) Baso # (Auto) Abs Immat Gran (auto) Absolute Neuts (auto) Absolute Nucleated RBC Nucleated RBC % (auto) Anion Gap Estim Creat Clear Calc Estimated GFR Random Glucose Lactic Acid Lactic Acid F/U @ 2Hr 0.6 Calcium Magnesium Total Bilirubin Direct Bilirubin AST ALT Alkaline Phosphatase Total Protein Albumin Urine Color Dark Yellow Urine Appearance Turbid Urine pH 7.0 Ur Specific [place] 1.025 Urine Protein 100 (2+) H Urine Glucose (UA) Negative Urine Ketones Trace Urine Blood Small (1+) H Urine Nitrite Positive H Ur Leukocyte Esterase Moderate (2+) H Urine RBC >20 H Urine WBC >50 H Ur Squamous Epith Cells 0-2 Urine Bacteria 4+ Hyaline Casts -20 COVID-19 ([facility]) COVID-19 Clin Com Assessment and Plan (1) Acute UTI: Status: Acute Plan 42M PMH MS, neurogenic bladder with suprapubic catheter, htn, hcv, hld, presented with ams acute metabolic encephalopathy due to suprapubic catheter associated uti rocpehin, follow up cultures dysphagia npo for now, follow up PERINATAL NURSE MS restart baclofen when taking po htn bp on lower side, holding meds hld restart statin when taking po dvt porphylaxis - lovenox full code reason for continued hospitalization:awaiting cultures, [facility] solution architect eval Quality Stroke Does the patient have a stroke diagnosis?: No VTE Prior VTE?: No VTE Risk Level:: Medical - moderate - high VTE Device Contraindication: Treatment Not Indicated VTE Drug Contraindication: N/A - Med Ordered
--- NOTE | 2023-01-22 11:11 | MHC.SL.SWA ---
Addendum entered and electronically signed by Trinity Weber MA, CCC-FINANCE ADVISOR 01/22/23 11:12: FINANCE ADVISOR left voicemail message for FINANCE ADVISOR at [facility] to inquire about results of previous swallow studies he had done there. Original Note: Speech Pathologist Impression: Risk of aspiration, oropharyngeal dysphagia, hx aspiration Risk of Aspiration Due to: History of Pneumonia Neurological Condition Dysphasia Diet Status: Start on NDD1/HTL (baseline) Liquid Consistency and Strategies for Safe Swallow: Liquid Intake Recommendation: Honey Thick Liquid Intake Strategies: Small Sips Double Swallow Liquids by Teaspoon Only Solid Food Consistency: Dietary Recommendations: Pureed (NDD1) Additional Modifications to Solid Foods: Recommend upgrade from NPO, START on PUREED diet (NDD 1) and HONEY THICK liquids via tsp. This is reportedly pt's baseline. Medication CRUSHED in PUREE. Recommend pt sitting upright at 90 degree angle, small bites and sips via tsp, check oral cavity as needed. Pt requires 1:1 assistance feeding, monitor closely for any overt s/s of aspiration. Maintain frequent oral care d/t hx of aspiration. Oral Medication Intake: Crushed with Puree Please contact the pharmacy regarding appropriate crushable or liquid drug formulations that are available whenever modified delivery is recommended. Compensatory Strategies and Precautions to be Taken for Safe Swallow: Sitting Upright (90 deg) Double Swallow No Straw Liquids from Spoon Small Bites and Sips Rate of Ingestion Change Oral Check Avoid Specific Foods Supervision While Eating and Drinking for Safe Swallow: Total Assistance (1:1) Foods to Avoid: Crunchy, chewy foods Swallowing Recommended Treatments: Compens. Strategy Educat. Recommendation for Speech: Inpatient Speech Therapy Comment: FINANCE ADVISOR will continue to follow during inpatient stay. Frequency/Duration: PRN M-F Date Range for Service Req: Timeline to reassess: Qual Field Manager Clinican/Clinical Fellow: Yes: Yane Snider Supervisory Statement: I have reviewed and agree with the student/clinical fellow's documentation: Yes Speech Language Pathologist: Trinity Weber M.A., CCC-FINANCE ADVISOR
--- NOTE | 2023-01-22 13:08 | MHC.CM.PN ---
pt lives in a group where he has 24/7 care he has a vna thru excel he will need an amb back to care home
--- NOTE | 2023-01-22 13:25 | MHC.CLN ---
NUTRITION CONSULT FOR SKIN INTEGRITY. DIET=PUREE WITH HONEY THICK LIQUIDS. PER LICENSED PROSTHETIST/ORTHOTIST, 1:1 FEED WITH LIQUIDS VIA TEASPOON. SKIN WITH REDNESS TO COCCYX. NO OPEN AREAS. WEIGHT LOSS TREND BUT NOT SIGNIFICANT. ADDING MAGIC CUP BID TO PROMOTE NUTRITIONAL INTAKE. PROVIDES 580 KCALS, 18 G PROTEIN. FOLLOW FOR PO INTAKE, DIET TOLERANCE, AND SKIN INTEGRITY. SEE CLINICAL NUTRITION ASSESSMENT 01/22/23.
[2023-01-22 14:19] LABS: MANUAL DIFF FLAG NO
[2023-01-22 14:22] LABS: Basophils Percent Auto 0.5 % (0-2); Eosinophils Percent Auto 0.7 % (0-4); Hematocrit 37.1 % (42.0-52.0); Hemoglobin 12.4 g/dl (14.0-18.0); Imm Gran Abs Auto 0.01 X10*3/uL (0.00-0.03); Imm Gran Pct Auto 0.2 % (0.0-0.4); Lymphocytes Absolute Auto 1.4 X10*3/uL (1.2-4.9); Lymphocytes Percent Auto 25.1 % (20-40); Mean Corpuscular HGB Conc 33.4 g/dl (31.0-36.0); Mean Corpuscular Hemoglobin 30.5 pg (27.0-33.0); Mean Corpuscular Volume 91.2 fL (80.0-98.0); Mean Platelet Volume 9.4 fL (9.4-12.4); Monocytes Absolute Auto 0.4 X10*3/uL (0.1-1.2); Monocytes Percent Auto 6.9 % (2-11); Neutrophils Absolute Auto 3.7 x10*3/uL (2.0-8.3); Neutrophils Percent Auto 66.6 % (45-73); Platelet Count 216 X10*3/uL (160-400); Red Blood Count 4.07 X10*6/uL (4.60-5.80); White Blood Count 5.5 X10*3/uL (4.8-10.8)
[2023-01-22 14:57] LABS: Anion Gap 9 (12-20); Blood Urea Nitrogen 15 mg/dL (9-16); Calcium 8.9 mg/dL (8.4-10.2); Carbon Dioxide 27 mmol/L (22-29); Chloride 104 mmol/L (96-108); Creatinine Clr Calc Pharmacy 137.8; Estimated Glomerular Filt Rate > 60; Glucose Random 134 mg/dL (60-115); Potassium 3.9 mmol/L (3.3-5.1); Sodium 136 mmol/L (135-145)
[2023-01-22] MEDS: Baclofen 20 MG TABLET 40 MG PO ×2 (15:14→21:02)
[2023-01-22] MEDS: Gabapentin 400 MG CAPSULE PO ×2 (15:14→21:03)
[2023-01-22] MEDS: polyethylene glycoL 3350 17 GM POWD.PACK PO (21:02)
[2023-01-22] MEDS: Amitriptyline HCl 50 MG TABLET 100 MG PO (21:02)
[2023-01-22] MEDS: Sennosides 8.6 MG TABLET 17.2 MG PO (21:02)
[2023-01-22] MEDS: Docusate Sodium 100 MG CAPSULE PO (21:03)
[2023-01-22] MEDS: Atorvastatin Calcium 10 MG TABLET PO (21:03)
[2023-01-22] MEDS: Ascorbic Acid 500 MG TABLET PO (21:18)
[2023-01-23 03:41] VITALS: BP 121/73; PULSE 100; RESP 17; TEMP 36; O2SAT 96
[2023-01-23 06:03] LABS: Hematocrit 37.4 % (42.0-52.0); Hemoglobin 12.4 g/dl (14.0-18.0); Mean Corpuscular HGB Conc 33.2 g/dl (31.0-36.0); Mean Corpuscular Volume 90.3 fL (80.0-98.0); Mean Platelet Volume 9.1 fL (9.4-12.4); Platelet Count 198 X10*3/uL (160-400); Red Blood Count 4.14 X10*6/uL (4.60-5.80); Red Cell Distribution Width 12.1 % (11.0-16.0); White Blood Count 4.8 X10*3/uL (4.8-10.8)
[2023-01-23 06:10] LABS: Anion Gap 11 (12-20); Blood Urea Nitrogen 12 mg/dL (9-16); Carbon Dioxide 26 mmol/L (22-29); Chloride 106 mmol/L (96-108); Creatinine Clr Calc Pharmacy 135.5; Estimated Glomerular Filt Rate > 60; Glucose Fasting 90 mg/dL (60-99); Sodium 139 mmol/L (135-145)
[2023-01-23 07:15] VITALS: BP 100/63; PULSE 92; RESP 18; TEMP 36.2; O2SAT 95
[2023-01-23] MEDS: Gabapentin 400 MG CAPSULE PO ×3 (07:59→19:50)
[2023-01-23] MEDS: Ascorbic Acid 500 MG TABLET PO ×2 (07:59→19:50)
[2023-01-23] MEDS: Phenytoin Chewable 50 MG TAB.CHEW 100 MG PO (08:00)
[2023-01-23] MEDS: 0.9 % Sodium Chloride Flush 3 ML SYRINGE IVFLUSH ×3 (08:00→19:51)
[2023-01-23] MEDS: Baclofen 20 MG TABLET 40 MG PO ×3 (08:00→19:50)
--- NOTE | 2023-01-23 09:13 | P.PNIM_ITS ---
Subjective Subjective Date of Service: 01/23/23 Interval History: no complaints Physical Exam 2 Vital Signs: Vital Signs: Last Vital Signs Temp 97.1 F 01/23/23 07:15 Pulse 92 01/23/23 07:15 Resp 18 01/23/23 07:15 BP 100/63 01/23/23 07:15 Pulse Ox 95 01/23/23 07:15 O2 Del Method Room Air 01/23/23 07:15 BMI result Body Mass Index 19.9 alert, no acute distress, non verbal Objective Data Active Medications Acetaminophen (Acetaminophen 325 Mg Tablet) 650 mg PO Q6H PRN PRN Reason: Pain, Mild (Pain Scale 1-3) Acetaminophen (Acetaminophen Supp 650 Mg Supp.Rect) 650 mg OK Q6H PRN PRN Reason: Pain, Mild (Pain Scale 1-3) Amitriptyline HCl (Amitriptyline Hcl 50 Mg Tablet) 100 mg PO BEDTIME [facility] Last Admin: 01/22/23 21:02 Dose: 100 mg Documented By: PARIS Ascorbic Acid (Ascorbic Acid 500 Mg Tablet) 500 mg PO BID [facility] Last Admin: 01/23/23 07:59 Dose: 500 mg Documented By: NATALIIA Atorvastatin Calcium (Atorvastatin Calcium 10 Mg Tablet) 10 mg PO BEDTIME [facility] Last Admin: 01/22/23 21:03 Dose: 10 mg Documented By: PARIS Baclofen (Baclofen 20 Mg Tablet) 40 mg PO TID [facility] Last Admin: 01/23/23 08:00 Dose: 40 mg Documented By: NATALIIA Docusate Sodium (Docusate Sodium 100 Mg Capsule) 100 mg PO BID [facility] Last Admin: 01/23/23 08:00 Dose: Not Given Documented By: NATALIIA Non-Admin Reason: 2 BM yesterday Enoxaparin Sodium (Enoxaparin Sodium 40 Mg/0.4 Ml Syringe) 40 mg SUBCUT Q24H [facility] Last Admin: 01/22/23 21:04 Dose: 40 mg Documented By: PARIS Fluticasone Propionate (Fluticasone Propionate Nasal 16 Gm Tinnie) 1 spray NOSTRIL-B Q4H PRN PRN Reason: Congestion Gabapentin (Gabapentin 400 Mg Capsule) 400 mg PO TID [facility] Last Admin: 01/23/23 07:59 Dose: 400 mg Documented By: NATALIIA Ceftriaxone Sodium 1 gm/ (Sodium Chloride) 50 mls @ 100 mls/hr IV Q24H [facility] Last Infusion: 01/22/23 22:19 Dose: Infused Documented By: PARIS Magnesium Hydroxide (Milk Of Magnesia 30 Ml Oral.Susp) 30 ml PO DAILY PRN PRN Reason: Constipation Melatonin (Melatonin 3 Mg Tablet) 6 mg PO BEDTIME PRN PRN Reason: Insomnia Ondansetron HCl (Ondansetron Hcl 4 Mg/2 Ml Vial) 4 mg IVPUSH Q8H PRN PRN Reason: Nausea and Vomiting Phenytoin (Phenytoin Chewable 50 Mg Tab.Chew) 100 mg PO DAILY [facility] Last Admin: 01/23/23 08:00 Dose: 100 mg Documented By: NATALIIA Polyethylene Glycol (Polyethylene Glycol 3350 17 Gm Powd.Pack) 17 gm PO BID [facility] Last Admin: 01/23/23 08:00 Dose: Not Given Documented By: NATALIIA Non-Admin Reason: 2 bms yesterday Senna (Sennosides 8.6 Mg Tablet) 17.2 mg PO BID [facility] Last Admin: 01/23/23 08:00 Dose: Not Given Documented By: NATALIIA Non-Admin Reason: 2 bms yesterday Sodium Chloride (0.9 % Sodium Chloride Flush 3 Ml Syringe) 3 ml IVFLUSH QSHIFT [facility] Last Admin: 01/23/23 08:00 Dose: 3 ml Documented By: NATALIIA Labs 01/23/23 05:43 01/23/23 05:43 Labs: Laboratory Results - last 24 hr 01/22/23 01/23/23 13:47 05:43 MCV 91.2 90.3 MCH 30.5 30.0 MCHC 33.4 33.2 RDW 12.0 12.1 Plt Count 216 198 MPV 9.4 9.1 L Immature Gran % (Auto) 0.2 Neut % (Auto) 66.6 Lymph % (Auto) 25.1 [place] % (Auto) 6.9 Eos % (Auto) 0.7 Baso % (Auto) 0.5 Lymph # (Auto) 1.4 [place] # (Auto) 0.4 Eos # (Auto) 0.0 Baso # (Auto) 0.0 Abs Immat Gran (auto) 0.01 Absolute Neuts (auto) 3.7 Absolute Nucleated RBC 0.000 0.000 Nucleated RBC % (auto) 0.0 0.0 Anion Gap 9 L 11 L Estim Creat Clear Calc 137.8 135.5 Estimated GFR > 60 > 60 Random Glucose 134 H Fasting Glucose 90 Calcium 8.9 D 9.0 Microbiology Microbiology Results: Microbiology 01/21/23 22:09 Blood Culture - Preliminary Blood - Venous No growth after 24 hours. 01/21/23 19:53 Blood Culture - Preliminary Blood - Venous No growth after 24 hours. 01/21/23 Unknown Urine Culture - Preliminary Urine clean catch - Urine cobb top Gram negative margy Assessment and Plan (1) Acute UTI: Status: Acute Plan 42M PMH MS, neurogenic bladder with suprapubic catheter, htn, hcv, hld, presented with ams acute metabolic encephalopathy due to suprapubic catheter associated uti rocpehin, follow up cultures - urine gnr dysphagia pureed, honey thick liquids MS baclofen htn bp on lower side, holding meds hld statin dvt porphylaxis - lovenox full code reason for continued hospitalization:awaiting cultures Quality Stroke Does the patient have a stroke diagnosis?: No VTE Prior VTE?: No VTE Risk Level:: Medical - moderate - high VTE Device Contraindication: Treatment Not Indicated VTE Drug Contraindication: N/A - Med Ordered
[2023-01-23 16:00] VITALS: BP 107/75; PULSE 95; RESP 18; TEMP 36.6; O2SAT 95
[2023-01-23] MEDS: Amitriptyline HCl 50 MG TABLET 100 MG PO (19:48)
[2023-01-23] MEDS: Atorvastatin Calcium 10 MG TABLET PO (19:49)
[2023-01-23] MEDS: Sennosides 8.6 MG TABLET 17.2 MG PO (19:50)
[2023-01-23] MEDS: Docusate Sodium 100 MG CAPSULE PO (19:50)
[2023-01-23] MEDS: polyethylene glycoL 3350 17 GM POWD.PACK PO (19:50)
[2023-01-23] MEDS: Melatonin 3 MG TABLET 6 MG PO (19:52)
[2023-01-23 19:58] VITALS: BP 113/84; PULSE 106; RESP 18; TEMP 36.9; O2SAT 94
[2023-01-23] MEDS: Enoxaparin Sodium 40 MG/0.4 ML SYRINGE SUBCUT (21:04)
[2023-01-23] MEDS: cefTRIAXone sodium 1 GM in 0.9 % Sodium Chloride 50 ML IV (21:04)
[2023-01-23 23:56] VITALS: BP 104/68; PULSE 97; RESP 18; TEMP 36.8; O2SAT 96
[2023-01-24] MEDS: polyethylene glycoL 3350 17 GM POWD.PACK PO (07:37)
[2023-01-24] MEDS: 0.9 % Sodium Chloride Flush 3 ML SYRINGE IVFLUSH (07:37)
[2023-01-24] MEDS: Phenytoin Chewable 50 MG TAB.CHEW 100 MG PO (07:37)
[2023-01-24] MEDS: Baclofen 20 MG TABLET 40 MG PO (07:37)
[2023-01-24] MEDS: Sennosides 8.6 MG TABLET 17.2 MG PO (07:37)
[2023-01-24] MEDS: Gabapentin 400 MG CAPSULE PO (07:37)
[2023-01-24] MEDS: Ascorbic Acid 500 MG TABLET PO (07:38)
[2023-01-24] MEDS: Sulfamethox/Trimeth 800/160 TABLET 1 TAB PO (07:38)
[2023-01-24 07:48] VITALS: BP 113/69; PULSE 97; RESP 18; TEMP 36.8; O2SAT 94
--- NOTE | 2023-01-24 08:59 | PM.DS ---
DS: Providers Provider Date of Service: 01/24/23 Date of admission: 01/21/23 21:29 Primary care physician: Emma Cross MD DS: Diagnosis Discharge Diagnosis (1) Acute UTI: Status: Acute DS: Summary Hospital Course Hospital Course: from initial hpi: 42-year-old male with pertinent history of multiple sclerosis with cognitive and physical impairment, neurogenic bladder status post suprapubic colostomy, mood disorder, essential hypertension, hepatitis-C, mixed hyperlipidemia who was sent to the emergency department from [facility] for lethargy and confusion. Staff at [facility] noticed change in order from suprapubic catheter. Unable to obtain any history from the patient. Does have a history of frequent UTI. The organ pipe maker metal at [facility] also concern for choking/coughing with p.o. intake. Patient is on a pureed diet with thickened liquids at baseline. Unable to obtain review of systems. In the emergency department, urine was concerning for UTI and patient was initiated on empiric IV antibiotics. hospital course: Patient was admitted for acute metabolic encephalopathy due to suprapubic catheter associated urinary tract infection. He was initially treated with IV ceftriaxone and mental status returned to baseline. Culture grew Serratia that was resistant to ceftriaxone therefore, discharge he will be given 7 more days of p.o. Bactrim. Patient is back to baseline. For his dysphagia he was seen by PRESCHOOL ASSOCIATE TEACHER who recommended pureed solids and honey thick liquids. First history of MS use continue baclofen. For her hyperlipidemia is continue on statin. Patient is now medically stable be discharged home. Time Attestation Discharge coordination time: Greater than 30 minutes Quality: Safe Use of Opioids Does Pt have an Active Cancer Diagnosis on the Problem List?: No Quality: Stroke Does the patient have a stroke diagnosis?: No Physical Exam Vital Signs: Vital Signs: Last Vital Signs Temp 98.2 F 01/24/23 07:48 Pulse 97 01/24/23 07:48 Resp 18 01/24/23 07:48 BP 113/69 01/24/23 07:48 Pulse Ox 94 01/24/23 07:48 O2 Del Method Room Air 01/24/23 07:48 BMI result Body Mass Index 19.9 alert, no acute distress, non verbal DS: Data Data Completed and Pending Completed studies during hospitalization [Text1]: Procedures Insertion of Infusion Device into Upper Vein, Percutaneous Approach (08/29/22) Labs on day of discharge: Preliminary micro results at discharge 01/21/23 22:09 Blood Culture - Preliminary Blood - Venous No growth after 48 hours. 01/21/23 19:53 Blood Culture - Preliminary Blood - Venous No growth after 48 hours. Discharge Plan Discharge Anticipated Discharge Date/Time: 01/24/23 08:57 Patient Disposition: Xfer Other Discharge Diagnosis: uti Referrals: Emma Cross MD [Primary Care Provider] - 1 Week Discharge Medications: New sulfamethoxazole-trimethoprim 800-160 mg Tablet 1 tab PO BID Qty: 14 0RF Continued metoprolol succinate 25 mg tablet extended release 24 hr 25 mg PO DAILY Qty: 30 2RF acetaminophen 325 mg Tablet 650 mg PO Q8H PRN (Reason: Fever Or Pain) docusate sodium [Colace] 100 mg Capsule 100 mg PO BID amitriptyline 100 mg Tablet 100 mg PO BEDTIME senna 8.6 mg Capsule 17.2 mg PO BID magnesium hydroxide [Milk of Magnesia] 400 mg/5 mL Suspension 30 ml PO DAILY PRN (Reason: Constipation) baclofen 10 mg tablet 40 mg PO TID epinephrine 0.3 mg/0.3 mL Syringe 0.3 mg IM Q15M PRN (Reason: Anaphylaxis) Rx Instructions: for 2 doses alpha lipoic acid 600 mg Tablet 600 mg PO BID atorvastatin 10 mg tablet 10 mg PO BEDTIME phenytoin 50 mg tablet,chewable 100 mg PO DAILY gabapentin 400 mg capsule 400 mg PO TID fluticasone propionate 50 mcg/actuation [place],Suspension 1 spray INTRANASAL Q4H PRN (Reason: Congestion) Rx Instructions: administer into each nostril doxycycline monohydrate 100 mg tablet 100 mg PO .COMPLEX PRN (Reason: CATHETER CHANGE) Rx Instructions: 100 mg PO On day of catheter change; 1 tab before cath change and 1 tab after cath change; polyethylene glycol 3350 17 gram/dose powder 17 g PO BID melatonin 5 mg tablet 5 mg PO BEDTIME methenamine hippurate 1 gram tablet 1 g PO DAILY 90 Days Qty: 90 3RF ascorbic acid (vitamin C) [Vitamin C] 500 mg tablet 500 mg PO BID 90 Days Qty: 180 1RF Discharge Orders: Discharge Order (Routine); Ordered 01/24/23 Ordered By: Nikolay Chavez Diet: pureed, honey thick Activity on Discharge: As tolerated Stand Alone Forms: Patient Portal Discharge page Care Plan Goals: recovery Health Concerns: cauti Plan of Treatment: 7 days bactrim Assessment: see above
--- NOTE | 2023-01-24 09:21 | MHC.CM.PN ---
PT CLEARED TO DC TODAY CM CALLED PTS ARCADE GAME TECHNICIAN, CHANTAL [phone] SHE STATED LONG THE PTS DCS MATCHED HIS RX AND THE PAPER THEY SEND IS SIGNED BY AN RN OR MD, THEY WILL BE ABLE TO TAKE PT TODAY SHE ALSO ENSURED PTS RX WAS SENT TO [facility], IT WAS SHE STATES A STAFF MEMBER WILL BRING THE NECESSARY FORM BEFORE PT LEAVES PER DISCUSSION, BLS TRANSPORT WAS ARRANGED VIA [facility] FOR 1200 HOURS CM CALLED PTS HCP, JOE DIAZ [phone] AND INFORMED HER OF DC PLAN/TIME, SHE IS ALSO AGREEABLE A RETURN REFERRAL WAS SENT TO [facility] UPON PTS ADMISSION, HOWEVER THEY HAVE NOT RESPONDED T/C PLACED TO [facility], AWAITING RETURN CALL
== END 2023-01-24 12:05 | disposition other institution (70) | DRG 466 ==
LOC: HO.ED 21:35 → HO.EDOVER 21:42 → HO.S3 23:05
PROVIDERS: Admitting Provider Student in an Organized Health Care Education/Training Program; Emergency Provider Emergency Medicine; PCP Internal Medicine; Visit Provider Internal Medicine
DX: T83.518A Infection and inflammatory reaction due to other urinary catheter, initial encounter (principal); G93.41 Metabolic encephalopathy; R13.10 Dysphagia, unspecified; N31.9 Neuromuscular dysfunction of bladder, unspecified; B96.89 Other specified bacterial agents as the cause of diseases classified elsewhere; Z16.19 Resistance to other specified beta lactam antibiotics; E78.2 Mixed hyperlipidemia; N39.0 Urinary tract infection, site not specified; B19.20 Unspecified viral hepatitis C without hepatic coma; G35 Multiple sclerosis; Z23 Encounter for immunization; Z79.899 Other long term (current) drug therapy
CPT/HCPCS: 36415; 71045; 80048; 80076; 81001; 83605; 83735; 84484; 85025; 85027; 87040; 87086; 87088; 87186; 87635; 90686; 92610; 93005; 99221; 99285; J0696; J1580; J1650

== ENCOUNTER → 2023-01-21 18:05 | Outpatient (BNV) | payer OTHER, SELFPAY | PROVIDERS: Emergency Provider Emergency Medicine; PCP Internal Medicine; Visit Provider Student in an Organized Health Care Education/Training Program | DX: N39.0 Urinary tract infection, site not specified (principal) | CPT/HCPCS: 99222; 99232; 99233; 99239 ==

== ENCOUNTER 2023-02-17 12:59 | Outpatient (AMB) | payer OTHER, SELFPAY ==
--- NOTE | 2023-02-17 13:06 | MHC.OFFVIS ---
Vital Signs 02/17/23 13:18 Height 6 ft Weight 130 lb BMI 17.6 BP not taken reason Medical Reason Pulse Oximetry (%) 97 Intake Visit Reasons: Failure to thrive, poor nutrition Intake Note: Patient new consult for failure thrive and poor nutrition. Patient cc: MS, no appetite and losing weight, medication is helping with constipation. Swallowing really slowly. Drilling Engineering Manager Required: No Accompanied by: Employee Allergies bee pollen [BEE STINGS] Allergy (Severe, Verified 08/21/23 08:20) Anaphylaxis Medication List - Last Reconciled 02/17/23 by Raj Myers MD acetaminophen 650 mg PO Q8H PRN alpha lipoic acid 600 mg PO BID amitriptyline 100 mg PO BEDTIME ascorbic acid (vitamin C) (Vitamin C) 500 mg PO BID 90 days atorvastatin 10 mg PO BEDTIME baclofen 40 mg PO TID docusate sodium (Colace) 100 mg PO BID doxycycline monohydrate 100 mg PO On day of catheter change; 1 tab before cath change and 1 tab after cath change; epinephrine 0.3 mg IM Q15M PRN fluticasone propionate 50 mcg/actuation 1 spray intranasal Q4H PRN gabapentin 400 mg PO TID magnesium hydroxide (Milk of Magnesia) 30 mL PO DAILY PRN melatonin 5 mg PO BEDTIME methenamine hippurate 1 g PO DAILY 90 days metoprolol succinate ER 25 mg PO DAILY phenytoin 100 mg PO DAILY polyethylene glycol 3350 17 grams PO BID sennosides (senna) 17.2 mg PO BID HPI HPI Failure to thrive, poor nutrition: Details: Initial GI clinic visit for this 42 YM with multiple sclerosis with cognitive and physical impairment, neurogenic bladder status post suprapubic catheter, mood disorder, essential hypertension, hepatitis-C, mixed hyperlipidemia referred by Dr Cross for dysphagia, decreased PO intake, failure to thrive and wt loss of 30 lbs for evaluation for PEG tube placement Pt was hospital[facility]ec[facility] [place] [facility] [place] to 01/24/23 for lethargy and confusion: 42-year-old male sent to the emergency department from [facility]. Staff at [facility] noticed change in order from suprapubic catheter. Unable to obtain any history from the patient. Does have a history of frequent UTI. The pea viner mechanic at [facility] also concern for choking/coughing with p.o. intake. Patient is on a pureed diet with thickened liquids at baseline. Unable to obtain review of systems. In the emergency department, urine was concerning for UTI and patient was initiated on empiric IV antibiotics. hospital course: Patient was admitted for acute metabolic encephalopathy due to suprapubic catheter associated urinary tract infection. He was initially treated with IV ceftriaxone and mental status returned to baseline. Culture grew Serratia that was resistant to ceftriaxone therefore, discharge he will be given 7 more days of p.o. Bactrim. Patient is back to baseline. For his dysphagia he was seen by HYDRAULIC PRESS IN OPERATOR who recommended pureed solids and honey thick liquids. For history of MS use continue baclofen. For her hyperlipidemia is continue on statin. Patient is now medically stable be discharged home. LABS IN [facility] : Reviewed IMAGING STUDIES: August, ABD CT SCAN SHOWED: 1. No hydronephrosis is present. 2. No renal calculi are seen. 3. Suprapubic cystostomy tube in place. 4. Large stool burden in the rectosigmoid. 5. Incidental note made of benign hepatic cysts, bibasilar atelectasis and other findings described above. ENDOSCOPIC STUDIES: None in [facility] TODAY'S VISIT: Patient cc: MS, no appetite and losing weight, medication is helping with constipation. Swallowing really slowly. Pt is wheel chair bound and non verbal. Pt's Mom is his HCP. He is accompanied by Lexie, accounting practice manager at the Nursing Home (moved there in June,) who provided the history Pt is on a Pureed, honey thick diet for the past 2 yrs. Wt decreased from 165 to 130 lbs 3rd swallowing [place] [facility] - advised to continue same diet. Since last hospitalization Medications are crushed and given in apple sauce Pt has chronic constipation and has a bowel regimen: Miralax, colace and senna twice a day MOM if no BM in 2 days Patient denies major cardiac or pulmonary problems, loud snoring or sleep apnea Recent labs by PCP were normal. Denies being on chronic anticoagulation. Patient denies known family history of colon polyps, colon cancer or other GI malignancies. [facility] Medical History Failure to thrive in adult Seizures Constipation Neuromyopathy UTI (urinary tract infection) Suprapubic catheter Hepatitis C Multiple sclerosis Surgical History Hx of cystoscopy Social History Household Members: Other Household Members Other:: [facility] Housing: Other Housing Other:: [facility] Do you presently have visiting nurse or other home services: Yes Unable to assess alcohol history related to: Unknown Alcohol intake: never Patient Tobacco Use Status: Never used Tobacco Advance Directives: Yes Advance Directives on File: Yes Advance Directives Date on File: 04/16/20 service: No Current occupational status: disabled Review of Systems Const Unobtainable due to mental condition Physical Exam Vital Signs: Last Vital Signs Pulse Ox 97 02/17/23 13:18 BMI result Body Mass Index 17.6 Appearance: Alert. Contracted no distress Pt is wheel chair bound and non verbal. Eyes: Pupils equal, round and reactive to light. ENT: Pharynx normal. Neck: Normal inspection. Neck supple. No lymph nodes noted. No crepitus CVS: Normal heart rate and rhythm. Pulses normal. Normal S1 and S2 Respiratory: No respiratory distress. Breath sounds normal. No Wheezing. No rales Abdomen: Soft and nontender. No rigidity. No distention. good BS x4 Skin: Skin warm and dry. Normal skin color. Normal skin turgor. Extremities: No lower extremity edema. Neurovascular intact to all extremities. No Lacerations. No Rash Neuro: Contracted, no distress Assessment & Plan Assessment & Plan (1) Weight loss: Code(s): R63.4 - Abnormal weight loss Category: Medical (2) Dysphagia: Code(s): R13.10 - Dysphagia, unspecified Category: Medical (3) Multiple sclerosis: Code(s): G35 - Multiple sclerosis Category: Medical (4) Chronic constipation: Code(s): K59.09 - Other constipation Category: Medical (5) Failure to thrive in adult: Code(s): R62.7 - Adult failure to thrive Category: Medical Plan 42 YM with multiple sclerosis with cognitive and physical impairment, neurogenic bladder status post suprapubic catheter, mood disorder, essential hypertension, hepatitis-C, mixed hyperlipidemia referred for dysphagia, decreased PO intake, failure to thrive and wt loss of 30 lbs Pt is wheel chair bound and non verbal. Pt was seen by HYDRAULIC PRESS IN OPERATOR who recommended pureed solids and honey thick liquids. [address]rd [address] [place] [address] [facility] - advised to continue same diet. Pt has been on above diet for the past 2 yrs. Wt decreased from 165 to 130 lbs Pt's Mom is his HCP. PLAN: Proceed with EGD with PEG tube placement. He will need pre-procedure IV antibiotics Pt will be admitted for overnight observation after the procedure He will need Dietary consult regarding his Caloric requirements and to initiate tube feedings Coding Level of Care Code New Pt Level 4 (39560) Diagnoses Weight loss R63.4 Dysphagia R13.10 Multiple sclerosis G35 Chronic constipation K59.09 Failure to thrive in adult R62.7 Time Spent (min) 21
[2023-02-17 13:18] VITALS: O2SAT 97; BMI 17.6
== END 2023-02-17 14:01 | disposition home or self-care (01) ==
PROVIDERS: PCP Internal Medicine; Visit Provider Internal Medicine Gastroenterology
DX: R63.4 Abnormal weight loss (principal); R13.10 Dysphagia, unspecified; G35 Multiple sclerosis; K59.09 Other constipation; R62.7 Adult failure to thrive
CPT/HCPCS: 99499

== ENCOUNTER → 2023-02-17 12:59 | Outpatient (BNVA) | payer OTHER, SELFPAY | PROVIDERS: PCP Internal Medicine; Visit Provider Internal Medicine Gastroenterology ==

== ENCOUNTER 2023-03-26 13:55 | Outpatient (REF) | payer OTHER, SELFPAY ==
[2023-03-26 14:07] LABS: Appearance Urine Cloudy; Color Urine Yellow; Glucose Urine UA Negative (Negative); Leukocyte Esterase Urine Small (1+) (Negative); Nitrite Urine Positive (Negative); UMIC TRIGGER UA YES; Urine Blood Negative (Negative); Urine Ketones Trace mg/dL (Negative); Urine Protein 30 (1+) mg/dL (Neg-Trace)
[2023-03-26 14:24] LABS: Bacteria Urine 4+ (None Seen); Hyaline Casts Urine 0-2 /LPF (0-2); RBC Urine 0-2 /HPF (0-2); Squamous Epithelial Cell Urine 0-2 /HPF (0-2); WBC Urine 21-50 /HPF (0-5)
== END 2023-03-26 13:56 | disposition home or self-care (01) ==
LOC: HO.LNP 13:55
PROVIDERS: Visit Provider Urology
DX: N39.0 Urinary tract infection, site not specified (principal); N31.9 Neuromuscular dysfunction of bladder, unspecified
CPT/HCPCS: 81001; 87086

== ENCOUNTER 2023-05-13 18:01 | Emergency (ER) | payer OTHER, SELFPAY ==
[2023-05-13 18:24] VITALS: BP 148/82; PULSE 82; O2SAT 96
[2023-05-13 18:31] VITALS: BP 110/66; PULSE 82; RESP 16; TEMP 36.9; O2SAT 100; BMI 18.2
--- NOTE | 2023-05-13 18:47 | ED_ITS ---
HPI - Male Genitourinary General Chief complaint: Urogenital-Male Stated complaint: catheter stuck Time Seen by Provider: 05/13/23 18:47 Source: EMS Mode of arrival: EMS Limitations: altered mental status History of Present Illness HPI Narrative: 42-year-old male with a history of failure to thrive, seizures, neuro myopathy, UTI, suprapubic catheter, hepatitis-C, multiple sclerosis your facility to change the suprapubic catheter. Apparently the nurse attempted to change the catheter but was unable to remove the catheter therefore the patient was sent to emergency department for evaluation. Apparently the catheter is changed every 3 months. The patient has not been ill in any way according to [facility] member that is here in the emergency department with the patient. Related Data Home Medications Medication Instructions Recorded Confirmed acetaminophen 325 mg tablet 650 mg PO Q8H PRN Fever Or Pain 04/14/20 02/26/23 amitriptyline 100 mg tablet 100 mg PO BEDTIME 04/14/20 02/26/23 docusate sodium 100 mg capsule 100 mg PO BID 04/14/20 02/26/23 (Colace) sennosides 8.6 mg capsule (senna) 17.2 mg PO BID Constipation 04/14/20 02/26/23 melatonin 5 mg tablet 5 mg PO BEDTIME 07/09/22 02/26/23 polyethylene glycol 3350 17 17 g PO BID 07/09/22 02/26/23 gram/dose oral powder alpha lipoic acid 600 mg tablet 600 mg PO BID 08/29/22 02/26/23 atorvastatin 10 mg tablet 10 mg PO BEDTIME 08/29/22 02/26/23 baclofen 10 mg tablet 40 mg PO TID 08/29/22 02/26/23 epinephrine 0.3 mg/0.3 mL 0.3 mg IM Q15M PRN Anaphylaxis 08/29/22 02/26/23 injection syringe magnesium hydroxide 400 mg/5 mL 30 ml PO DAILY PRN Constipation 08/29/22 02/26/23 oral suspension (Milk of Magnesia) doxycycline monohydrate 100 mg 100 mg PO .COMPLEX PRN CATHETER 01/21/23 02/26/23 tablet CHANGE fluticasone propionate 50 1 spray intranasal Q4H PRN 01/21/23 02/26/23 mcg/actuation nasal Congestion spray,suspension gabapentin 400 mg capsule 400 mg PO TID 01/21/23 02/26/23 diazepam 5 mg tablet 5 mg PO BEDTIME PRN Anxiety 02/26/23 02/26/23 dimethyl fumarate 240 mg 240 mg PO BID 02/26/23 02/26/23 capsule,delayed release (Tecfidera) phenytoin sodium extended 100 mg 300 mg PO BEDTIME 02/26/23 02/26/23 capsule (Dilantin Extended) Previous Rx's Medication Instructions Recorded metoprolol succinate 25 mg 25 mg PO DAILY hypertension #30 09/13/20 tablet,extended release 24 hr tabs methenamine hippurate 1 gram tablet 1 g PO DAILY 90 days #90 tabs 07/09/22 ascorbic acid (vitamin C) 500 mg 500 mg PO BID 90 days #180 tabs 01/06/23 tablet (Vitamin C) sulfamethoxazole 800 1 tab PO BID 7 days #14 tabs 03/29/23 mg-trimethoprim 160 mg tablet (Bactrim DS) Allergies Allergy/AdvReac Type Severity Reaction Status Date / Time bee pollen [BEE STINGS] Allergy Severe Anaphylaxis Verified 02/26/23 09:24 Review of Systems Review of Systems: Yes Unobtainable due to mental status PMFSH Past Medical History Medical History (Updated 05/13/23 @ 19:22 by Elder Pastor MD) Failure to thrive in adult Seizures Constipation Neuromyopathy UTI (urinary tract infection) Suprapubic catheter Hepatitis C Multiple sclerosis Surgical History (Updated 02/26/23 @ 09:39 by Daysi Garibay RN) Hx of cystoscopy Social History Social History Household Members: Other Household Members Other:: [facility] Housing: Other Housing Other:: [facility] Do you presently have visiting nurse or other home services: Yes Unable to assess alcohol history related to: Unknown Alcohol intake: never Patient Tobacco Use Status: Never used Tobacco Advance Directives Date on File: 04/16/20 service: No Current occupational status: disabled Physical Exam Vital Signs: Vital Signs: Last Vital Signs Temp 98.5 F 05/13/23 18:31 Pulse 82 05/13/23 18:31 Resp 16 05/13/23 18:31 BP 110/66 05/13/23 18:31 Pulse Ox 100 05/13/23 18:31 O2 Del Method Room Air 05/13/23 18:31 BMI result Body Mass Index 18.2 Exam: General: Awake, alert, nonverbal Abdomen: soft, non-tender, nondistended, normal bowel sounds 18 [place] suprapubic catheter 18 [place], 10 cc balloon Medical Decision Making Medical Decision Making MDM Narrative: 42-year-old male with a history of failure to thrive, seizures, neuro myopathy, UTI, suprapubic catheter, hepatitis-C, multiple sclerosis your facility to change the suprapubic catheter. Patient's suprapubic catheter was changed by me at his bedside using an 18 [place] catheter with a 10 cc balloon filled with 10 cc of fluid . Catheter was easily inserted and had immediate urine flow, there were no complications. Patient will be discharged back to his [facility]. Differential diagnosis: ?Includes but is not limited to false passage, crusting over tip of catheter Course: Patient's superior pubic catheter was changed by me at the bedside. Ambulance will be obtained to take the patient back to his [facility] secondary to his MS. Independent Historian Clinical information obtained from an independent historian. History obtained from or confirmed by: Other ([facility] staff member) External Record Review External record reviewed: Outpatient record (Provided by [facility] that your onset that woke up the put you in the pot) Chronic Conditions Patient?s care impacted by: Other (Multiple sclerosis) Procedures Catheter Insertion (Urinary) Date of insertion: 05/13/23 Time of insertion: 19:13 Reason for placing indwelling catheter: Other (Suprapubic catheter change) Bladder scan/ultrasound used before catheterization: No Antiseptic solution prep: Povidone-Iodine Topical anesthesia used: No Catheter type/location: Suprapubic Size ([place] Islander): 18 Catheter balloon size (mL): 10 Catheter balloon amount: 10 Results: successfully catheterized-immediate flow Procedure performed: without complications Discharge Plan Discharge Clinical Impression: Multiple sclerosis, Urinary catheter ([place]) change required Patient Disposition: Home, Self-Care Additional Instructions: Your suprapubic catheter was changed with an 18 [place] catheter with a 10 cc balloon, 10 cc of sterile water was used in the balloon. Continue medications as prescribed by your providers. Please return to the emergency department if your symptoms get worse or if you develop any symptoms that are concerning to you. Prescriptions: No Action sulfamethoxazole-trimethoprim [Bactrim DS] 800-160 mg tablet 1 tab PO BID 7 Days Qty: 14 0RF metoprolol succinate 25 mg tablet extended release 24 hr 25 mg PO DAILY Qty: 30 2RF acetaminophen 325 mg Tablet 650 mg PO Q8H PRN (Reason: Fever Or Pain) docusate sodium [Colace] 100 mg Capsule 100 mg PO BID amitriptyline 100 mg Tablet 100 mg PO BEDTIME senna 8.6 mg Capsule 17.2 mg PO BID magnesium hydroxide [Milk of Magnesia] 400 mg/5 mL Suspension 30 ml PO DAILY PRN (Reason: Constipation) baclofen 10 mg tablet 40 mg PO TID epinephrine 0.3 mg/0.3 mL Syringe 0.3 mg IM Q15M PRN (Reason: Anaphylaxis) Rx Instructions: for 2 doses alpha lipoic acid 600 mg Tablet 600 mg PO BID atorvastatin 10 mg tablet 10 mg PO BEDTIME gabapentin 400 mg capsule 400 mg PO TID fluticasone propionate 50 mcg/actuation [place],Suspension 1 spray INTRANASAL Q4H PRN (Reason: Congestion) Rx Instructions: administer into each nostril doxycycline monohydrate 100 mg tablet 100 mg PO .COMPLEX PRN (Reason: CATHETER CHANGE) Rx Instructions: 100 mg PO On day of catheter change; 1 tab before cath change and 1 tab after cath change; phenytoin sodium extended [Dilantin Extended] 100 mg Capsule 300 mg PO BEDTIME diazepam 5 mg Tablet 5 mg PO BEDTIME PRN (Reason: Anxiety) dimethyl fumarate [Tecfidera] 240 mg Capsule,Delayed Release(Dr/Ec) 240 mg PO BID polyethylene glycol 3350 17 gram/dose powder 17 g PO BID melatonin 5 mg tablet 5 mg PO BEDTIME methenamine hippurate 1 gram tablet 1 g PO DAILY 90 Days Qty: 90 3RF ascorbic acid (vitamin C) [Vitamin C] 500 mg tablet 500 mg PO BID 90 Days Qty: 180 1RF
[2023-05-13 20:08] VITALS: BP 115/74; PULSE 81; RESP 17; TEMP 36.9; O2SAT 99
== END 2023-05-13 20:49 | disposition home or self-care (01) ==
PROVIDERS: Emergency Provider Emergency Medicine Emergency Medical Services
DX: Z43.5 Encounter for attention to cystostomy (principal); G35 Multiple sclerosis; R62.7 Adult failure to thrive
CPT/HCPCS: 51705; 99283

== ENCOUNTER 2023-06-16 14:49 | Emergency (ER) | payer OTHER, SELFPAY ==
[2023-06-16 15:07] VITALS: BP 104/75; BP 148/78; PULSE 104; PULSE 68; RESP 16; TEMP 36.8; O2SAT 100; BMI 18.2
--- NOTE | 2023-06-16 15:16 | ED_ITS ---
HPI - General Adult General Chief complaint: Urogenital-Male Stated complaint: BLOCKED F/C FROM SNF PER EMS Time Seen by Provider: 06/16/23 15:02 Source: EMS Mode of arrival: EMS Limitations: other (encephalopathy) History of Present Illness HPI narrative: Patient sent in from the [facility] for blocked suprapubic catheter. No fever Onset (ago): day(s) Related Data Home Medications Medication Instructions Recorded Confirmed acetaminophen 325 mg tablet 650 mg PO Q8H PRN Fever Or Pain 04/14/20 02/26/23 amitriptyline 100 mg tablet 100 mg PO BEDTIME 04/14/20 02/26/23 docusate sodium 100 mg capsule 100 mg PO BID 04/14/20 02/26/23 (Colace) sennosides 8.6 mg capsule (senna) 17.2 mg PO BID Constipation 04/14/20 02/26/23 melatonin 5 mg tablet 5 mg PO BEDTIME 07/09/22 02/26/23 polyethylene glycol 3350 17 17 g PO BID 07/09/22 02/26/23 gram/dose oral powder alpha lipoic acid 600 mg tablet 600 mg PO BID 08/29/22 02/26/23 atorvastatin 10 mg tablet 10 mg PO BEDTIME 08/29/22 02/26/23 baclofen 10 mg tablet 40 mg PO TID 08/29/22 02/26/23 epinephrine 0.3 mg/0.3 mL 0.3 mg IM Q15M PRN Anaphylaxis 08/29/22 02/26/23 injection syringe magnesium hydroxide 400 mg/5 mL 30 ml PO DAILY PRN Constipation 08/29/22 02/26/23 oral suspension (Milk of Magnesia) doxycycline monohydrate 100 mg 100 mg PO .COMPLEX PRN CATHETER 01/21/23 02/26/23 tablet CHANGE fluticasone propionate 50 1 spray intranasal Q4H PRN 01/21/23 02/26/23 mcg/actuation nasal Congestion spray,suspension gabapentin 400 mg capsule 400 mg PO TID 01/21/23 02/26/23 diazepam 5 mg tablet 5 mg PO BEDTIME PRN Anxiety 02/26/23 02/26/23 dimethyl fumarate 240 mg 240 mg PO BID 02/26/23 02/26/23 capsule,delayed release (Tecfidera) phenytoin sodium extended 100 mg 300 mg PO BEDTIME 02/26/23 02/26/23 capsule (Dilantin Extended) Previous Rx's Medication Instructions Recorded metoprolol succinate 25 mg 25 mg PO DAILY hypertension #30 09/13/20 tablet,extended release 24 hr tabs methenamine hippurate 1 gram tablet 1 g PO DAILY 90 days #90 tabs 07/09/22 ascorbic acid (vitamin C) 500 mg 500 mg PO BID 90 days #180 tabs 01/06/23 tablet (Vitamin C) sulfamethoxazole 800 1 tab PO BID 7 days #14 tabs 03/29/23 mg-trimethoprim 160 mg tablet (Bactrim DS) Allergies Allergy/AdvReac Type Severity Reaction Status Date / Time bee pollen [BEE STINGS] Allergy Severe Anaphylaxis Verified 02/26/23 09:24 Review of Systems Review of Systems: Yes Unobtainable due to mental status Neurologic: Denies Sensory deficit (Neuro) [facility] Past Medical History Medical History Failure to thrive in adult Seizures Constipation Neuromyopathy UTI (urinary tract infection) Suprapubic catheter Hepatitis C Multiple sclerosis Surgical History Hx of cystoscopy Social History Social History Household Members: Other Household Members Other:: assisted Housing: Other Housing Other:: assisted Do you presently have visiting nurse or other home services: Yes Unable to assess alcohol history related to: Unknown Alcohol intake: never Patient Tobacco Use Status: Never used Tobacco Advance Directives: Yes Advance Directives on File: Yes Advance Directives Date on File: 04/16/20 service: No Current occupational status: disabled Physical Exam ED Vital Signs: Vital Signs - 24 hr 06/16/23 15:07 Temperature 98.2 F Pulse Rate 104 H Respiratory Rate 16 Blood Pressure 104/75 Pulse Oximetry 100 Oxygen Delivery Method Room Air BMI result Body Mass Index 18.2 Const Other: Patient cachectic chronically ill Limitations: altered mental status and behavioral limitations HENMT Head: Yes normal to inspection Ears: external ears normal General nose exam: Normal external nose present Mouth: Normal oral and palatal mucosa present and oropharynx normal Throat: Yes posterior oropharynx normal Eyes General: appearance normal, both eyes and all related structures Neck Neck: Yes normal visual inspection Chest Chest palpation & inspection: normal inspection of the chest Resp Auscultation: clear to auscultation bilaterally Cardio Jugular venous distension: no JVD Rate: regular rate Rhythm: regular rhythm Heart sounds: S1 normal heart sound present and S2 normal heart sound present GI Inspection: Yes normal to inspection Palpation (GI): Soft to palpation, nontender and No hepatosplenomegaly present Auscultation: normal bowel sounds General: Yes no CVA tenderness Back/Spine/Pelvis Back: no CVA tenderness Skin General skin exam: no rashes or lesions noted Neuro Other: contracted arms and legs Sensory Exam: No Sensory deficit (Neuro) Extrem General: Yes normal to inspection Psych Appearance: grossly normal Course Reevaluation(s) Reevaluation #1: Procedure: suprapubic changed, the original could not be flushed. Flowing well. Time: 16:05 Medical Decision Making Differential Diagnosis Differential Diagnoses: The differential diagnosis associated with the presentation includes (clogged suprapubic catheter) Tests considered The following testing was considered but not selected: No fever so UA was not checked Prescription Management I considered prescription management with: Antibiotic (no abx given as patient likely colonized, afebrile) Chronic Conditions Patient?s care impacted by: Other (encephalopathy) Discharge Plan Discharge Clinical Impression: Multiple sclerosis, Blocked suprapubic catheter Patient Disposition: Home, Self-Care Prescriptions: No Action sulfamethoxazole-trimethoprim [Bactrim DS] 800-160 mg tablet 1 tab PO BID 7 Days Qty: 14 0RF metoprolol succinate 25 mg tablet extended release 24 hr 25 mg PO DAILY Qty: 30 2RF acetaminophen 325 mg Tablet 650 mg PO Q8H PRN (Reason: Fever Or Pain) docusate sodium [Colace] 100 mg Capsule 100 mg PO BID amitriptyline 100 mg Tablet 100 mg PO BEDTIME senna 8.6 mg Capsule 17.2 mg PO BID magnesium hydroxide [Milk of Magnesia] 400 mg/5 mL Suspension 30 ml PO DAILY PRN (Reason: Constipation) baclofen 10 mg tablet 40 mg PO TID epinephrine 0.3 mg/0.3 mL Syringe 0.3 mg IM Q15M PRN (Reason: Anaphylaxis) Rx Instructions: for 2 doses alpha lipoic acid 600 mg Tablet 600 mg PO BID atorvastatin 10 mg tablet 10 mg PO BEDTIME gabapentin 400 mg capsule 400 mg PO TID fluticasone propionate 50 mcg/actuation [place],Suspension 1 spray INTRANASAL Q4H PRN (Reason: Congestion) Rx Instructions: administer into each nostril doxycycline monohydrate 100 mg tablet 100 mg PO .COMPLEX PRN (Reason: CATHETER CHANGE) Rx Instructions: 100 mg PO On day of catheter change; 1 tab before cath change and 1 tab after cath change; phenytoin sodium extended [Dilantin Extended] 100 mg Capsule 300 mg PO BEDTIME diazepam 5 mg Tablet 5 mg PO BEDTIME PRN (Reason: Anxiety) dimethyl fumarate [Tecfidera] 240 mg Capsule,Delayed Release(Dr/Ec) 240 mg PO BID polyethylene glycol 3350 17 gram/dose powder 17 g PO BID melatonin 5 mg tablet 5 mg PO BEDTIME methenamine hippurate 1 gram tablet 1 g PO DAILY 90 Days Qty: 90 3RF ascorbic acid (vitamin C) [Vitamin C] 500 mg tablet 500 mg PO BID 90 Days Qty: 180 1RF Referrals: Emma Cross MD [Primary Care Provider] - 1 week
[2023-06-16 17:13] VITALS: BP 117/78; PULSE 96; RESP 16; TEMP 36.9; O2SAT 98
--- NOTE | 2023-06-16 17:37 | PC.NURSE ---
pt comes from [facility] with social group worker for clogged suprapubic catheter. pt is non verbal but able to shake head yes and no. suprapubic catheter changed by Dr. Townsend. pt tolerated well. awaiting EMS transport back to [facility]. plan of care ongoing.
[2023-06-16 19:05] VITALS: BP 117/78; PULSE 96; RESP 16; TEMP 36.9; O2SAT 98
== END 2023-06-16 19:07 | disposition home or self-care (01) ==
PROVIDERS: Emergency Provider Emergency Medicine; PCP Internal Medicine
DX: T83.090A Other mechanical complication of cystostomy catheter, initial encounter (principal); Y84.6 Urinary catheterization as the cause of abnormal reaction of the patient, or of later complication, without mention of misadventure at the time of the procedure; Y92.9 Unspecified place or not applicable; G35 Multiple sclerosis
CPT/HCPCS: 51705; 99282; 99284

== ENCOUNTER 2023-07-07 13:36 | Outpatient (AMB) | payer OTHER, SELFPAY ==
--- NOTE | 2023-07-07 13:49 | MHC.OFFVIS ---
Intake Visit Reasons: 6m follow up Intake Note: Patient is Present for Follow Up Urology Medication: Methenamine Antibiotic Allergies: None Blood Thinners:none Allergies bee pollen [BEE STINGS] Allergy (Severe, Verified 02/26/23 09:24) Anaphylaxis HPI Comments Details: Noe KIRKPATRICK s a very pleasant male. They are a patient of Dr Cross. They are seen in the office today for the following urologic conditions. - neurogenic bladder Suprapubic tube change now performed every 2 weeks Less clogging with debris Receives doxycycline the morning and afternoon of catheter change Daily to methenamine with vitamin-C Add cranberry capsules Using doxycycline day of catheter change Neurogenic Bladder:? They are here for ?further management for incomplete emptying neurogenic bladder ?- can be changed at facility ? Urinary retention initially found?progressive development over time.? Associated conditions? Alzhiemers ?No ? CAD ?No ? CVA ?No ? Diabetes ?No ? Multiple sclerosis ?Yes ? renal replacement therapy ?No ? Spinal injury/surgery ?No ? Current management?SPT placed in hospital for retention and UTI.? Therapeutic plan?change SPT q2-3 weeks at facility.? PFSH Medical History Failure to thrive in adult Seizures Constipation Neuromyopathy UTI (urinary tract infection) Suprapubic catheter Hepatitis C Multiple sclerosis Surgical History Hx of cystoscopy Social History Household Members: Other Household Members Other:: residential Housing: Other Housing Other:: residential Do you presently have visiting nurse or other home services: Yes Unable to assess alcohol history related to: Unknown Alcohol intake: never Patient Tobacco Use Status: Never used Tobacco Advance Directives Date on File: 04/16/20 service: No Current occupational status: disabled Review of Systems Const Denies chills and Denies fever(s) Card Reports no additional complaints and Denies syncope Resp Denies cough GI Denies abdominal pain and Denies heartburn Reports as per HPI and Denies change in libido Neuro Denies syncope Psych Denies change in libido Endo Denies change in libido Physical Exam Const General: cooperative, healthy appearing, comfortable and no acute distress Orientation/consciousness: patient oriented x3 HEENT Face and sinus: Yes normal facial exam Mouth: moist mucous membranes Neck Neck: Yes normal visual inspection, Yes full ROM and Yes trachea midline Chest Chest palpation & inspection: normal inspection of the chest Resp Effort & Inspection: normal respiratory effort, able to speak in complete sentences and no respiratory distress GI Inspection: Yes normal to inspection Back/Spine/Pelvis Cervical Spine: normal cervical lordosis Thoracic/Lumbar Spine: thoracic and lumbar spine normal to inspection Skin General skin exam: no rashes or lesions noted Neuro General: patient oriented x3, gait normal, tone normal and moves all extremities Extrem General: Yes normal to inspection and Yes capillary refill normal Assessment & Plan Assessment & Plan (1) Urinary retention with incomplete bladder emptying: Code(s): R33.9 - Retention of urine, unspecified Category: Medical (2) Neurogenic urinary bladder disorder: Code(s): N31.9 - Neuromuscular dysfunction of bladder, unspecified Category: Medical Plan Six-month follow-up tele Patient Instructions: Imaging studies, laboratory and physical exam results were discussed and reviewed in detail. No major barriers to patient understanding were identified. An opportunity to ask questions regarding the treatment plan was provided. All questions were answered. The patient expressed understanding and agreement with the above treatment plan. The patient is aware they should contact our office by phone for worsening of their current condition or the appearance of new urologic symptoms. Compliance is encouraged with any medications and followup testing that is ordered. It is a privilege to participate in the urologic care of your patient. If you have any questions or concerns regarding treatment for the above conditions, or other urologic issues, please do not hesitate to contact me. The office telephone contact is [phone]. This note is constructed using voice recognition software. While every effort has been made to ensure accuracy adult manager errors may have been included. Yours sincerely, Dr Cristi Zepeda MD, [facility] - Urology Providers of Expert, Compassionate Care for the Genitourinary System Coding Level of Care Code Est Pt Level 3 (35054) Diagnoses Urinary retention with incomplete bladder emptying R33.9 Neurogenic urinary bladder disorder N31.9
== END 2023-07-07 14:21 | disposition home or self-care (01) ==
LOC: HO.HUSH 13:36
PROVIDERS: PCP Internal Medicine; Visit Provider Urology
DX: R33.9 Retention of urine, unspecified (principal); N31.9 Neuromuscular dysfunction of bladder, unspecified
CPT/HCPCS: 99213

== ENCOUNTER → 2023-07-07 13:36 | Outpatient (BNVA) | payer OTHER, SELFPAY | PROVIDERS: PCP Internal Medicine; Visit Provider Urology | DX: R33.9 Retention of urine, unspecified (principal); N31.9 Neuromuscular dysfunction of bladder, unspecified | CPT/HCPCS: 99212 ==

== ENCOUNTER 2023-07-15 16:16 | Emergency (ER) | payer OTHER, SELFPAY ==
[2023-07-15 16:21] VITALS: BP 111/64; PULSE 107; O2SAT 96
[2023-07-15 16:27] VITALS: BP 117/78; PULSE 105; RESP 16; TEMP 37.7; O2SAT 95; BMI 20.8
--- NOTE | 2023-07-15 16:31 | PHA.MEDREC ---
Pharmacy Consult ? Medication Reconciliation Pharmacy has completed the medication reconciliation. Patient from [facility] with med list. Mely Shanks, IsraelD
--- NOTE | 2023-07-15 16:34 | ED_ITS ---
HPI - Male Genitourinary General Chief complaint: Urogenital-Male Stated complaint: unable to change catheter Time Seen by Provider: 07/15/23 16:25 History of Present Illness HPI Narrative: The patient is a 42-year-old male with a history of multiple sclerosis who is nonverbal at baseline. He has a chronic suprapubic urinary catheter. Apparently he was scheduled to have his catheter changed today and the nurse who went to change the catheter was unable to remove the catheter. She did not feel comfortable exerting any significant force and so the patient was sent to the emergency room for evaluation. There is no report of any fever, vomiting, or other symptoms. Related Data Home Medications ?Medication ?Instructions ?Recorded ?Confirmed acetaminophen 325 mg tablet 650 mg PO Q8H PRN Fever Or Pain 04/14/20 07/15/23 amitriptyline 100 mg tablet 100 mg PO BEDTIME 04/14/20 07/15/23 docusate sodium 100 mg capsule 100 mg PO BID 04/14/20 07/15/23 (Colace) sennosides 8.6 mg capsule (senna) 17.2 mg PO BID Constipation 04/14/20 07/15/23 melatonin 5 mg tablet 5 mg PO BEDTIME 07/09/22 07/15/23 polyethylene glycol 3350 17 17 g PO BID 07/09/22 07/15/23 gram/dose oral powder alpha lipoic acid 600 mg tablet 600 mg PO BID 08/29/22 07/15/23 atorvastatin 10 mg tablet 10 mg PO BEDTIME 08/29/22 07/15/23 baclofen 10 mg tablet 40 mg PO TID 08/29/22 07/15/23 epinephrine 0.3 mg/0.3 mL 0.3 mg IM Q15M PRN Anaphylaxis 08/29/22 07/15/23 injection syringe magnesium hydroxide 400 mg/5 mL 30 ml PO DAILY PRN Constipation 08/29/22 07/15/23 oral suspension (Milk of Magnesia) doxycycline monohydrate 100 mg 100 mg PO .COMPLEX PRN CATHETER 01/21/23 07/15/23 tablet CHANGE fluticasone propionate 50 1 spray intranasal Q4H PRN 01/21/23 07/15/23 mcg/actuation nasal Congestion spray,suspension gabapentin 400 mg capsule 400 mg PO TID 01/21/23 07/15/23 famotidine 20 mg tablet 20 mg PO BID 07/15/23 07/15/23 loratadine 10 mg tablet 10 mg PO DAILY 07/15/23 07/15/23 phenytoin 50 mg chewable tablet 100 mg PO DAILY 07/15/23 07/15/23 Previous Rx's ?Medication ?Instructions ?Recorded metoprolol succinate 25 mg 25 mg PO DAILY hypertension #30 09/13/20 tablet,extended release 24 hr tabs methenamine hippurate 1 gram tablet 1 g PO DAILY 90 days #90 tabs 07/09/22 ascorbic acid (vitamin C) 500 mg 500 mg PO BID 90 days #180 tabs 01/06/23 tablet (Vitamin C) Allergies Allergy/AdvReac Type Severity Reaction Status Date / Time bee pollen [BEE STINGS] Allergy Severe Anaphylaxis Verified 07/15/23 16:33 Review of Systems Review of Systems: Yes all other systems are reviewed and are negative [facility] Past Medical History Medical History Failure to thrive in adult Seizures Constipation Neuromyopathy UTI (urinary tract infection) Suprapubic catheter Hepatitis C Multiple sclerosis Surgical History Hx of cystoscopy Social History Social History Household Members: Other Household Members Other:: intermediate Housing: Other Housing Other:: intermediate Do you presently have visiting nurse or other home services: Yes Unable to assess alcohol history related to: Unknown Alcohol intake: never Patient Tobacco Use Status: Never used Tobacco Advance Directives: Yes Advance Directives on File: Yes Advance Directives Date on File: 04/16/20 Do you have a plan to hurt others: No Plan service: No Current occupational status: disabled Physical Exam Vital Signs: Vital Signs: Last Vital Signs Temp 99.9 F 07/15/23 16:27 Pulse 105 H 07/15/23 16:27 Resp 16 07/15/23 16:27 BP 117/78 07/15/23 16:27 Pulse Ox 95 07/15/23 16:27 O2 Del Method Room Air 07/15/23 16:27 BMI result Body Mass Index 20.8 Const: Other: The patient is a slim 42-year-old who was obviously chronically ill. His eyes are open. At times he seems to make eye contact but it is not clear if he is understanding anything I am saying to him. He does not seem in acute pain or respiratory distress. He does not seem obviously acutely ill. HEENT: Other: Face is symmetrical. Mucous membranes moist. Eyes: Other: Pupils are round equal, conjunctivae clear Neck: Other: No neck swelling. No JVD. Resp: Effort & Inspection: normal respiratory effort Auscultation: clear to auscultation bilaterally Cardio: Rate: regular rate Rhythm: regular rhythm Heart sounds: S1 normal heart sound present and S2 normal heart sound present GI: Other: The patient has a suprapubic catheter in the midline of his lower abdomen. The abdomen is flat and soft. No obvious tenderness. : Other: The patient is uncircumcised. Unremarkable external genitalia. Skin: Other: Skin is pale and dry Neuro: Other: The patient seems to be awake and sometimes seems to make eye contact but is nonverbal and does not seem to have other significant mode of communication. The patient seems generally quite weak but I believe this is his baseline. Extrem: Other: No peripheral edema Medications Administered Discontinued Medications Generic Name Dose Route Start Last Admin Trade Name Freq PRN Reason Stop Dose Admin Lidocaine HCl 10 ml 07/15/23 16:34 07/15/23 17:15 Lidocaine Hcl 2 % Urojet 10 Ml Jel.Pf.Coy TOPICAL 07/15/23 16:35 10 ml ONCE ONE Administration Medical Decision Making Medical Decision Making [facility] Narrative: Patient is a 42-year-old with severe multiple sclerosis who has a suprapubic catheter and lives at a intermediate. Apparently nurses today had trouble removing the catheter for a routine catheter replacement. Seems to have an 18 [place] Citizen all silicone catheter in place. I was able to deflate the balloon of the catheter and fairly easily remove the catheter. There was no complication and removing the patient's catheter. The patient was then prepped with Betadine and under sterile conditions I placed a new 18 [place] all silicone catheter through the patient's stoma. I used a Uro jet for lubrication prior to inserting the catheter. Catheter went in easily and the balloon inflated easily. Urine flowed fairly soon after placement of the catheter. The patient was mildly tachycardic on arrival here in his temperature was 99.9 degrees initially. During a period of bservation he was not persistently tachycardic and a rectal temperature was 98.7. My overall impression is that the patient is not infected. Patient should get checked again if any symptoms of an infection develop. Discharge Plan Discharge Clinical Impression: Suprapubic catheter dysfunction, Multiple sclerosis Patient Disposition: Home, Self-Care Additional Instructions: His suprapubic catheter was changed without difficulty. He has a new 18 [place] silicone catheter. Please resume normal catheter care. Please resume normal medications and other regimens. Return to the emergency room if worse, especially if fever. Prescriptions: No Action metoprolol succinate 25 mg tablet extended release 24 hr 25 mg PO DAILY Qty: 30 2RF acetaminophen 325 mg Tablet 650 mg PO Q8H PRN (Reason: Fever Or Pain) docusate sodium [Colace] 100 mg Capsule 100 mg PO BID amitriptyline 100 mg Tablet 100 mg PO BEDTIME senna 8.6 mg Capsule 17.2 mg PO BID magnesium hydroxide [Milk of Magnesia] 400 mg/5 mL Suspension 30 ml PO DAILY PRN (Reason: Constipation) baclofen 10 mg tablet 40 mg PO TID epinephrine 0.3 mg/0.3 mL Syringe 0.3 mg IM Q15M PRN (Reason: Anaphylaxis) Rx Instructions: for 2 doses alpha lipoic acid 600 mg Tablet 600 mg PO BID atorvastatin 10 mg tablet 10 mg PO BEDTIME gabapentin 400 mg capsule 400 mg PO TID fluticasone propionate 50 mcg/actuation [place],Suspension 1 spray INTRANASAL Q4H PRN (Reason: Congestion) Rx Instructions: administer into each nostril doxycycline monohydrate 100 mg tablet 100 mg PO .COMPLEX PRN (Reason: CATHETER CHANGE) Rx Instructions: 100 mg PO On day of catheter change; 1 tab before cath change and 1 tab after cath change; phenytoin 50 mg tablet,chewable 100 mg PO DAILY famotidine 20 mg Tablet 20 mg PO BID loratadine 10 mg Tablet 10 mg PO DAILY polyethylene glycol 3350 17 gram/dose powder 17 g PO BID melatonin 5 mg tablet 5 mg PO BEDTIME methenamine hippurate 1 gram tablet 1 g PO DAILY 90 Days Qty: 90 3RF ascorbic acid (vitamin C) [Vitamin C] 500 mg tablet 500 mg PO BID 90 Days Qty: 180 1RF Referrals: Emma Cross MD [Primary Care Provider] - Print Language: Divehi
[2023-07-15] MEDS: Lidocaine HCl 2 % Urojet 10 ML JEL.PF.APP TOPICAL (17:15)
[2023-07-15 18:29] VITALS: BP 117/78; PULSE 107; RESP 18; TEMP 37.5; O2SAT 96
[2023-07-15 21:28] VITALS: BP 117/78; PULSE 75; RESP 16; TEMP 37.5; O2SAT 98
== END 2023-07-15 21:30 | disposition home or self-care (01) ==
PROVIDERS: Emergency Provider Emergency Medicine; PCP Internal Medicine
DX: G35 Multiple sclerosis (principal); Z79.899 Other long term (current) drug therapy
CPT/HCPCS: 99283

== ENCOUNTER 2023-08-05 08:25 | Outpatient (REF) | payer OTHER, SELFPAY ==
--- NOTE | ~2023-08-05 | MR_ITS ---
EXAMINATION: MR BRAIN WITHOUT CONTRAST MR CERVICAL SPINE WITHOUT CONTRAST CLINICAL INFORMATION: Multiple sclerosis. Uncontrolled movement of the head and neck. Leg spasms. COMPARISON: Brain MRI from 08/24/2016. TECHNIQUE: MRI of the brain and cervical spine was obtained using routine sequences without contrast. Included a sagittal T2 FLAIR sequence. FINDINGS: Brain: Significantly motion degraded exam. Diffusion-weighted and gradient sequences are essentially nondiagnostic. There are bihemispheric T2 hyperintense subdural collections appear new compared to exam from 2017, measuring up to 1.2 cm in depth on the right and 0.8 cm in depth on the left. Extensive patchy and partially confluent T2 FLAIR hyperintensity throughout the deep and periventricular white matter. Moderate diffuse volume loss including irregular thinning of the corpus callosum has progressed compared to 2017. Proportional prominence of the ventricles and sulcal spaces without evidence of obstructive hydrocephalus. No midline shift. Mucus retention cyst within the left maxillary sinus. Mild mucosal thickening of the remaining paranasal sinuses. No signal abnormalities within the mastoids. Cervical Spine: Moderate to significantly motion limited exam. Minimal degenerative interspaces of C4 on C5. Otherwise, normal anatomic alignment. Mild degenerative disc disease at all cervical levels. No overtly suspicious marrow edema. The vertebral body heights are well-maintained. No epidural collection. No demonstrated severe neural foraminal stenoses. No spinal canal stenosis. Evaluation of the spinal cord is significantly limited by motion degradation. MR/MR cervical spine wo con IMPRESSION: Significantly motion degraded exam. 1. Moderate bihemispheric subdural collections are new compared to exam from 2017. 2. Extensive white matter disease and moderate diffuse cerebral volume loss has progressed compared to exam from 2017. 3. No demonstrated acute abnormalities of the cervical spine. Evaluation of the spinal cord is significantly limited by motion degradation.
== END 2023-08-05 08:26 | disposition home or self-care (01) ==
LOC: HO.MRI 08:25
PROVIDERS: PCP Internal Medicine; Visit Provider Psychiatry & Neurology Neurology
DX: G35 Multiple sclerosis (principal)
CPT/HCPCS: 70551; 72141

== ENCOUNTER 2023-08-19 21:30 | Emergency (ER) | payer OTHER, SELFPAY ==
--- NOTE | 2023-08-19 21:44 | ED.MALEGU ---
HPI - Male Genitourinary General Stated complaint: CATHETER CAME OUT Time Seen by Provider: 08/19/23 21:43 History of Present Illness HPI Narrative: Patient history of MS baseline limited motor has a history of urinary retention has a history of a suprapubic catheter. nursing home reports suprapubic catheter got pulled out accidentally. Related Data Home Medications ?Medication ?Instructions ?Recorded ?Confirmed acetaminophen 325 mg tablet 650 mg PO Q8H PRN Fever Or Pain 04/14/20 07/15/23 amitriptyline 100 mg tablet 100 mg PO BEDTIME 04/14/20 07/15/23 docusate sodium 100 mg capsule 100 mg PO BID 04/14/20 07/15/23 (Colace) sennosides 8.6 mg capsule (senna) 17.2 mg PO BID Constipation 04/14/20 07/15/23 melatonin 5 mg tablet 5 mg PO BEDTIME 07/09/22 07/15/23 polyethylene glycol 3350 17 17 g PO BID 07/09/22 07/15/23 gram/dose oral powder alpha lipoic acid 600 mg tablet 600 mg PO BID 08/29/22 07/15/23 atorvastatin 10 mg tablet 10 mg PO BEDTIME 08/29/22 07/15/23 baclofen 10 mg tablet 40 mg PO TID 08/29/22 07/15/23 epinephrine 0.3 mg/0.3 mL 0.3 mg IM Q15M PRN Anaphylaxis 08/29/22 07/15/23 injection syringe magnesium hydroxide 400 mg/5 mL 30 ml PO DAILY PRN Constipation 08/29/22 07/15/23 oral suspension (Milk of Magnesia) doxycycline monohydrate 100 mg 100 mg PO .COMPLEX PRN CATHETER 01/21/23 07/15/23 tablet CHANGE fluticasone propionate 50 1 spray intranasal Q4H PRN 01/21/23 07/15/23 mcg/actuation nasal Congestion spray,suspension gabapentin 400 mg capsule 400 mg PO TID 01/21/23 07/15/23 famotidine 20 mg tablet 20 mg PO BID 07/15/23 07/15/23 loratadine 10 mg tablet 10 mg PO DAILY 07/15/23 07/15/23 phenytoin 50 mg chewable tablet 100 mg PO DAILY 07/15/23 07/15/23 Previous Rx's ?Medication ?Instructions ?Recorded metoprolol succinate 25 mg 25 mg PO DAILY hypertension #30 09/13/20 tablet,extended release 24 hr tabs ascorbic acid (vitamin C) 500 mg 500 mg PO BID 90 days #180 tabs 07/20/23 tablet (Vitamin C) cranberry 500 mg capsule 1,000 mg (2 x 500 mg) PO DAILY 90 07/20/23 days #180 caps methenamine hippurate 1 gram tablet 1 g PO DAILY 90 days #90 tabs 07/20/23 Allergies Allergy/AdvReac Type Severity Reaction Status Date / Time bee pollen [BEE STINGS] Allergy Severe Anaphylaxis Verified 07/15/23 16:33 Review of Systems Review of Systems: Unable to obtain review of systems Yes Unobtainable due to mental status PMFSH Past Medical History Attestation statement: The following information was validated with the patient. Medical History Failure to thrive in adult Seizures Constipation Neuromyopathy UTI (urinary tract infection) Suprapubic catheter Hepatitis C Multiple sclerosis Surgical History Hx of cystoscopy Social History Social History Household Members: Other Household Members Other:: assisted Housing: Other Housing Other:: assisted Do you presently have visiting nurse or other home services: Yes Unable to assess alcohol history related to: Unknown Alcohol intake: never Patient Tobacco Use Status: Never used Tobacco Advance Directives Date on File: 04/16/20 service: No Current occupational status: disabled Physical Exam Vital Signs: Vital Signs: Appearance: Alert. Contracted no distress Eyes: Pupils equal, round and reactive to light. ENT: Pharynx normal. Neck: Normal inspection. Neck supple. No lymph nodes noted. No crepitus CVS: Normal heart rate and rhythm. Pulses normal. Normal S1 and S2 Respiratory: No respiratory distress. Breath sounds normal. No Wheezing. No rales Abdomen: Soft and nontender. No rigidity. No distention. good BS x4 Skin: Skin warm and dry. Normal skin color. Normal skin turgor. Extremities: No lower extremity edema. Neurovascular intact to all extremities. No Lacerations. No Rash Neuro: Contracted, no distress Medical Decision Making Medical Decision Making MDM Narrative: Procedure note the suprapubic catheter site was cleaned. Subsequently Betadine use a 16 [place] was tested. Lubricated. Subsequently the catheter was inserted under sterile technique. Balloon was kept up to 10 cc. There is clear urine being drained. There was no complication. Mcghee was replaced patient is to be discharged back to the assisted. Differential Diagnosis Differential Diagnoses: The differential diagnosis associated with the presentation includes Mcghee out Admission/Observation Consideration of admission/observation: Escalation of care including admission/observation considered We were able to get the catheter in no need for admission Social Determinants Patient?s care significantly limited by Social Determinants of Health including: Inadequate housing Discharge Plan Discharge Clinical Impression: Urinary catheter (Mcghee) change required Patient Disposition: Home, Self-Care Instructions: Mcghee Catheter Placement and Care (ED) Prescriptions: No Action methenamine hippurate 1 gram tablet 1 g PO DAILY 90 Days Qty: 90 3RF ascorbic acid (vitamin C) [Vitamin C] 500 mg tablet 500 mg PO BID 90 Days Qty: 180 1RF cranberry 500 mg capsule 1,000 mg PO DAILY 90 Days Qty: 180 1RF Rx Instructions: administer with a meal metoprolol succinate 25 mg tablet extended release 24 hr 25 mg PO DAILY Qty: 30 2RF acetaminophen 325 mg Tablet 650 mg PO Q8H PRN (Reason: Fever Or Pain) docusate sodium [Colace] 100 mg Capsule 100 mg PO BID amitriptyline 100 mg Tablet 100 mg PO BEDTIME senna 8.6 mg Capsule 17.2 mg PO BID magnesium hydroxide [Milk of Magnesia] 400 mg/5 mL Suspension 30 ml PO DAILY PRN (Reason: Constipation) baclofen 10 mg tablet 40 mg PO TID epinephrine 0.3 mg/0.3 mL Syringe 0.3 mg IM Q15M PRN (Reason: Anaphylaxis) Rx Instructions: for 2 doses alpha lipoic acid 600 mg Tablet 600 mg PO BID atorvastatin 10 mg tablet 10 mg PO BEDTIME gabapentin 400 mg capsule 400 mg PO TID fluticasone propionate 50 mcg/actuation [place],Suspension 1 spray INTRANASAL Q4H PRN (Reason: Congestion) Rx Instructions: administer into each nostril doxycycline monohydrate 100 mg tablet 100 mg PO .COMPLEX PRN (Reason: CATHETER CHANGE) Rx Instructions: 100 mg PO On day of catheter change; 1 tab before cath change and 1 tab after cath change; phenytoin 50 mg tablet,chewable 100 mg PO DAILY famotidine 20 mg Tablet 20 mg PO BID loratadine 10 mg Tablet 10 mg PO DAILY polyethylene glycol 3350 17 gram/dose powder 17 g PO BID melatonin 5 mg tablet 5 mg PO BEDTIME Referrals: Cristi Zepeda MD [Physician] - (As needed) Print Language: [place]ijani
[2023-08-19 21:53] VITALS: BP 122/81; BP 132/94; PULSE 122; RESP 18; TEMP 36.5; O2SAT 94; O2SAT 96; BMI 19.5
[2023-08-19 22:53] VITALS: BP 0/0; PULSE 0; RESP 0; TEMP -17.7; TEMP 0; O2SAT 0
== END 2023-08-19 22:55 | disposition home or self-care (01) ==
PROVIDERS: Emergency Provider Emergency Medicine Emergency Medical Services; PCP Internal Medicine
DX: R33.9 Retention of urine, unspecified (principal); Z46.6 Encounter for fitting and adjustment of urinary device; Z79.899 Other long term (current) drug therapy
CPT/HCPCS: 99283; 99284

== ENCOUNTER 2023-08-21 07:52 | Emergency (ER) | payer OTHER, SELFPAY ==
--- NOTE | ~2023-08-21 | CT_ITS ---
EXAMINATION: CT ABDOMEN AND PELVIS WITH CONTRAST CLINICAL INFORMATION: None available patient weighs abdominal pain and tenderness COMPARISON: 08/29/2022 TECHNIQUE: Multidetector volumetric images were obtained from the superior aspect of the liver through the pubic symphysis following administration 85 mL of Omnipaque 350 intravenous contrast. Sagittal and coronal reformatted images were obtained on the technologist's workstation. Oral contrast: No This CT examination was performed using dose optimization techniques as appropriate, variously including the following: *Automated exposure control *Adjustment of mA and/or kV according to patient size (this includes techniques or standardized protocols for targeted exams where dose is matched to indication/reason for exam; i.e. extremities or head) *Use of iterative reconstruction technique DLP: 791 mGy-cm FINDINGS: LUNG BASES: The visualized lung bases are unremarkable. LIVER, GALLBLADDER, AND BILIARY TREE: There are a few low-attenuation lesions seen through the liver consistent with the appearance of cysts there are no solid lesions or ductal dilatation. Partially visualized gallbladder is unremarkable. PANCREAS: Unremarkable. SPLEEN: Unremarkable. ADRENAL GLANDS: Unremarkable. KIDNEYS AND URETERS: There are a few small cysts seen through the kidneys bilaterally. There is no hydroureteronephrosis or nephrolithiasis. BLADDER: There is suprapubic catheter present GASTROINTESTINAL TRACT: There is abnormally large amount of retained stool through the colon with complete impaction of colon. Loops of small bowel are decompressed. Appendix is not identified. There is no free air. ABDOMINAL WALL: No significant hernia is appreciated. LYMPH NODES: Normal. VASCULAR: Unremarkable. PELVIC VISCERA: Unremarkable. OSSEOUS STRUCTURES: Unremarkable. CT/CT abdomen pelvis w IV con IMPRESSION: Fecal impaction with abnormally large amount of retained stool through the colon. Fleischner guidelines were followed.
[2023-08-21 08:15] VITALS: BP 132/81; BP 142/96; PULSE 102; PULSE 94; RESP 20; TEMP 36.6; O2SAT 94; O2SAT 98; BMI 19.5
--- NOTE | 2023-08-21 08:33 | ED.GENADULT ---
HPI - General Adult General Chief complaint: General Medical Stated complaint: CONSTIPATION Time Seen by Provider: 08/21/23 08:33 History of Present Illness HPI narrative: The patient is a 42-year-old male with a history of multiple sclerosis and significant neurological impairment lives at a skilled nursing. He is on a fairly impressive bowel regimen. Despite his bowel regimen he has not had stool for 4 days. No report of fever or vomiting. Related Data Home Medications ?Medication ?Instructions ?Recorded ?Confirmed acetaminophen 325 mg tablet 650 mg PO Q8H PRN Fever Or Pain 04/14/20 07/15/23 amitriptyline 100 mg tablet 100 mg PO BEDTIME 04/14/20 07/15/23 docusate sodium 100 mg capsule 100 mg PO BID 04/14/20 07/15/23 (Colace) sennosides 8.6 mg capsule (senna) 17.2 mg PO BID Constipation 04/14/20 07/15/23 melatonin 5 mg tablet 5 mg PO BEDTIME 07/09/22 07/15/23 polyethylene glycol 3350 17 17 g PO BID 07/09/22 07/15/23 gram/dose oral powder alpha lipoic acid 600 mg tablet 600 mg PO BID 08/29/22 07/15/23 atorvastatin 10 mg tablet 10 mg PO BEDTIME 08/29/22 07/15/23 baclofen 10 mg tablet 40 mg PO TID 08/29/22 07/15/23 epinephrine 0.3 mg/0.3 mL 0.3 mg IM Q15M PRN Anaphylaxis 08/29/22 07/15/23 injection syringe magnesium hydroxide 400 mg/5 mL 30 ml PO DAILY PRN Constipation 08/29/22 07/15/23 oral suspension (Milk of Magnesia) doxycycline monohydrate 100 mg 100 mg PO .COMPLEX PRN CATHETER 01/21/23 07/15/23 tablet CHANGE fluticasone propionate 50 1 spray intranasal Q4H PRN 01/21/23 07/15/23 mcg/actuation nasal Congestion spray,suspension gabapentin 400 mg capsule 400 mg PO TID 01/21/23 07/15/23 famotidine 20 mg tablet 20 mg PO BID 07/15/23 07/15/23 loratadine 10 mg tablet 10 mg PO DAILY 07/15/23 07/15/23 phenytoin 50 mg chewable tablet 100 mg PO DAILY 07/15/23 07/15/23 Previous Rx's ?Medication ?Instructions ?Recorded metoprolol succinate 25 mg 25 mg PO DAILY hypertension #30 09/13/20 tablet,extended release 24 hr tabs ascorbic acid (vitamin C) 500 mg 500 mg PO BID 90 days #180 tabs 07/20/23 tablet (Vitamin C) cranberry 500 mg capsule 1,000 mg (2 x 500 mg) PO DAILY 90 07/20/23 days #180 caps methenamine hippurate 1 gram tablet 1 g PO DAILY 90 days #90 tabs 07/20/23 bisacodyl 10 mg rectal suppository 10 mg VA DAILY PRN constipation 08/21/23 (Dulcolax (bisacodyl)) #12 ea bisacodyl 10 mg rectal suppository 10 mg VA DAILY PRN constipation 08/21/23 (Dulcolax (bisacodyl)) #12 ea Allergies Allergy/AdvReac Type Severity Reaction Status Date / Time bee pollen [BEE STINGS] Allergy Severe Anaphylaxis Verified 08/21/23 08:20 Review of Systems Review of Systems: Yes Unobtainable due to mental condition [facility] Past Medical History Medical History Failure to thrive in adult Seizures Constipation Neuromyopathy UTI (urinary tract infection) Suprapubic catheter Hepatitis C Multiple sclerosis Surgical History Hx of cystoscopy Social History Social History Household Members: Other Household Members Other:: skilled nursing Housing: Other Housing Other:: skilled nursing Do you presently have visiting nurse or other home services: Yes Unable to assess alcohol history related to: Unknown Alcohol intake: never Patient Tobacco Use Status: Never used Tobacco Advance Directives: Yes Advance Directives on File: Yes Advance Directives Date on File: 04/16/20 service: No Current occupational status: disabled Physical Exam ED Vital Signs: Vital Signs - 24 hr 08/21/23 08:15 08/21/23 09:07 08/21/23 09:42 Temperature 98 F 97.9 F 97.7 F Pulse Rate 102 H 94 Respiratory Rate 20 20 Blood Pressure 132/81 130/88 Pulse Oximetry 98 100 Oxygen Delivery Method Room Air Room Air 08/21/23 13:22 08/21/23 16:21 Temperature 97.9 F 97.8 F Pulse Rate 84 83 Respiratory Rate 18 18 Blood Pressure 138/94 H 130/70 Pulse Oximetry 99 96 Oxygen Delivery Method Room Air Room Air BMI result Body Mass Index 19.5 Const Other: The patient is a chronically ill-appearing 42-year-old. He is somewhat wasted. He is nonverbal. He does not seem in acute distress. HENMT Other: No obvious facial asymmetry. Mucous membranes not obviously dry. Eyes Other: Pupils are round equal, conjunctivae clear Neck Neck: Yes no JVD Resp Effort & Inspection: normal respiratory effort Auscultation: clear to auscultation bilaterally Cardio Rate: regular rate Rhythm: regular rhythm Heart sounds: S1 normal heart sound present and S2 normal heart sound present GI Other: The abdomen was distended and tympanitic but not definitely tender. There is a suprapubic catheter in place I performed a rectal exam after a lactulose enema has been administered. There was no stool in the rectum at that point. Back/Spine/Pelvis Other: Skin Other: Skin is pale and dry Neuro Other: The patient seems to be awake and seems to make eye contact. He has not significantly verbal head seemed to have little or no use of his extremities Extrem Other: Some very slight sacral skin erythema. Medications Administered Discontinued Medications Generic Name Dose Route Start Last Admin Trade Name Freq PRN Reason Stop Dose Admin Sodium Chloride 1,000 mls @ 999 mls/hr 08/21/23 08:45 08/21/23 11:02 Ns IV 08/21/23 09:45 Infused .Q1H1M LARA Infusion Iohexol 100 ml 08/21/23 10:10 08/21/23 10:10 Iohexol 350 Mg/Ml 100 Ml Infus..Btl IV 08/21/23 10:11 85 ml ONCE ONE Administration Lactulose 200 gm 08/21/23 10:44 08/21/23 11:23 Lactulose 320 Gm/480 Ml Solution VA 08/21/23 10:45 200 gm ONCE ONE Administration Medical Decision Making Medical Decision Making MDM Narrative: The patient presents for evaluation of constipation. Given his mental status clinical exam does not seem very reliable. A CT was done that showed an immense amount of stool in the colon but no definite complications. Labs were reassuring. The patient was given a lactulose enema with the passage of a moderate-sized stool. I then performed a rectal exam that showed an empty rectum. The patient's stool does not seem particularly hard. I think the patient may be discharged to return to his skilled nursing. I have written a prescription for Dulcolax suppositories. He is already on an extensive oral bowel regimen. The skilled nursing was also advised to increase surveillance of a pressure sore on his sacrum. Lab Data 08/21/23 09:05 08/21/23 09:05 Labs: Lab Results 08/21/23 Range/Units 09:05 WBC 8.9 (4.8-10.8) X10*3/uL RBC 4.13 L (4.60-5.80) X10*6/uL Hgb 12.7 L (14.0-18.0) g/dl Hct 38.5 L (42.0-52.0) % MCV 93.2 (80.0-98.0) fL MCH 30.8 (27.0-33.0) pg MCHC 33.0 (31.0-36.0) g/dl RDW 11.9 (11.0-16.0) % Plt Count 267 D (160-400) X10*3/uL MPV 8.2 L (9.4-12.4) fL Immature Gran % (Auto) 0.2 (0.0-0.4) % Neut % (Auto) 69.0 (45-73) % Lymph % (Auto) 19.2 L (20-40) % Hamlin % (Auto) 10.2 (2-11) % Eos % (Auto) 1.1 (0-4) % Baso % (Auto) 0.3 (0-2) % Lymph # (Auto) 1.7 (1.2-4.9) X10*3/uL [place]lin # (Auto) 0.9 (0.1-1.2) X10*3/uL Eos # (Auto) 0.1 (0.0-0.4) X10*3/uL Baso # (Auto) 0.0 (0.0-0.2) X10*3/uL Abs Immat Gran (auto) 0.02 (0.00-0.03) X10*3/uL Absolute Neuts (auto) 6.2 (2.0-8.3) x10*3/uL Absolute Nucleated RBC 0.000 (0.0-0.012) X10*3/uL Nucleated RBC % (auto) 0.0 (0.0-0.2) /100WBC Sodium 134 L (135-145) mmol/L Potassium 4.6 (3.3-5.1) mmol/L Chloride 97 (96-108) mmol/L Carbon Dioxide 32 H (22-29) mmol/L Anion Gap 10 L (12-20) BUN 12 (9-16) mg/dL Creatinine 0.67 (0.5-1.4) mg/dL Estim Creat Clear Calc 129.9 Estimated GFR > 60 Random Glucose 110 (60-115) mg/dL Calcium 9.8 D (8.4-10.2) mg/dL Magnesium 2.3 (1.6-2.6) mg/dL Total Bilirubin 0.3 (0.0-1.0) mg/dL Direct Bilirubin 0.1 (0.0-0.5) mg/dL AST 13 (5-37) U/L ALT 17 (0-40) U/L Alkaline Phosphatase 100 (39-117) U/L C-Reactive Protein 2.51 H (< or = 0.50) mg/dL Total Protein 7.5 (6.5-8.0) g/dL Albumin 3.8 (3.5-5.0) g/dL Lipase 12 (8-78) U/L Discharge Plan Discharge Clinical Impression: Constipation, Multiple sclerosis, Skin ulcer of sacrum Patient Disposition: Home, Self-Care Additional Instructions: CT scan of his abdomen and pelvis shows a significant amount of stool throughout the colon but no acute complication other than the significant amount of stool. He has a mild skin pressure injury to the sacral skin. He received a lactulose enema with improvement in what may have been some degree of mild fecal impaction. He no longer seems fecal impacted. He was given a Dulcolax suppository as well. I would recommend giving a Dulcolax suppository daily for the next 3 days and then as needed. Please take whatever precautions you can for pressure skin injury to the sacrum. Please have him follow up with his regular doctor. Prescriptions: New bisacodyl [Dulcolax (bisacodyl)] 10 mg suppository 10 mg VA DAILY PRN (Reason: constipation) Qty: 12 0RF bisacodyl [Dulcolax (bisacodyl)] 10 mg suppository 10 mg VA DAILY PRN (Reason: constipation) Qty: 12 0RF No Action methenamine hippurate 1 gram tablet 1 g PO DAILY 90 Days Qty: 90 3RF ascorbic acid (vitamin C) [Vitamin C] 500 mg tablet 500 mg PO BID 90 Days Qty: 180 1RF cranberry 500 mg capsule 1,000 mg PO DAILY 90 Days Qty: 180 1RF Rx Instructions: administer with a meal metoprolol succinate 25 mg tablet extended release 24 hr 25 mg PO DAILY Qty: 30 2RF acetaminophen 325 mg Tablet 650 mg PO Q8H PRN (Reason: Fever Or Pain) docusate sodium [Colace] 100 mg Capsule 100 mg PO BID amitriptyline 100 mg Tablet 100 mg PO BEDTIME senna 8.6 mg Capsule 17.2 mg PO BID magnesium hydroxide [Milk of Magnesia] 400 mg/5 mL Suspension 30 ml PO DAILY PRN (Reason: Constipation) baclofen 10 mg tablet 40 mg PO TID epinephrine 0.3 mg/0.3 mL Syringe 0.3 mg IM Q15M PRN (Reason: Anaphylaxis) Rx Instructions: for 2 doses alpha lipoic acid 600 mg Tablet 600 mg PO BID atorvastatin 10 mg tablet 10 mg PO BEDTIME gabapentin 400 mg capsule 400 mg PO TID fluticasone propionate 50 mcg/actuation [place],Suspension 1 spray INTRANASAL Q4H PRN (Reason: Congestion) Rx Instructions: administer into each nostril doxycycline monohydrate 100 mg tablet 100 mg PO .COMPLEX PRN (Reason: CATHETER CHANGE) Rx Instructions: 100 mg PO On day of catheter change; 1 tab before cath change and 1 tab after cath change; phenytoin 50 mg tablet,chewable 100 mg PO DAILY famotidine 20 mg Tablet 20 mg PO BID loratadine 10 mg Tablet 10 mg PO DAILY polyethylene glycol 3350 17 gram/dose powder 17 g PO BID melatonin 5 mg tablet 5 mg PO BEDTIME Interventions: ED Discharge Assessment Last Done: 08/21/23 16:21 Discharge Date/Time: 08/21/23 16:24 Print Language: Portuguese
[2023-08-21] MEDS: 0.9 % Sodium Chloride 1,000 ML 999 ML IV (09:06)
[2023-08-21 09:07] VITALS: TEMP 36.6
[2023-08-21 09:11] LABS: MANUAL DIFF FLAG NO
[2023-08-21 09:13] LABS: Basophils Percent Auto 0.3 % (0-2); Eosinophils Absolute Auto 0.1 X10*3/uL (0.0-0.4); Eosinophils Percent Auto 1.1 % (0-4); Hematocrit 38.5 % (42.0-52.0); Hemoglobin 12.7 g/dl (14.0-18.0); Imm Gran Abs Auto 0.02 X10*3/uL (0.00-0.03); Imm Gran Pct Auto 0.2 % (0.0-0.4); Lymphocytes Absolute Auto 1.7 X10*3/uL (1.2-4.9); Lymphocytes Percent Auto 19.2 % (20-40); Mean Corpuscular Hemoglobin 30.8 pg (27.0-33.0); Mean Corpuscular Volume 93.2 fL (80.0-98.0); Mean Platelet Volume 8.2 fL (9.4-12.4); Monocytes Absolute Auto 0.9 X10*3/uL (0.1-1.2); Monocytes Percent Auto 10.2 % (2-11); Neutrophils Absolute Auto 6.2 x10*3/uL (2.0-8.3); Platelet Count 267 X10*3/uL (160-400); Red Blood Count 4.13 X10*6/uL (4.60-5.80); Red Cell Distribution Width 11.9 % (11.0-16.0); White Blood Count 8.9 X10*3/uL (4.8-10.8)
[2023-08-21 09:30] LABS: Alanine Aminotransferase 17 U/L (0-40); Albumin Level 3.8 g/dL (3.5-5.0); Alkaline Phosphatase 100 U/L (39-117); Anion Gap 10 (12-20); Aspartate Amino Transferase 13 U/L (5-37); Bilirubin Direct 0.1 mg/dL (0.0-0.5); Bilirubin Total 0.3 mg/dL (0.0-1.0); Blood Urea Nitrogen 12 mg/dL (9-16); C Reactive Protein 2.51 mg/dL (< or = 0.50); Calcium 9.8 mg/dL (8.4-10.2); Carbon Dioxide 32 mmol/L (22-29); Chloride 97 mmol/L (96-108); Creatinine Clr Calc Pharmacy 129.9; Estimated Glomerular Filt Rate > 60; Glucose Random 110 mg/dL (60-115); Lipase 12 U/L (8-78); Magnesium 2.3 mg/dL (1.6-2.6); Potassium 4.6 mmol/L (3.3-5.1); Sodium 134 mmol/L (135-145); Total Protein 7.5 g/dL (6.5-8.0)
[2023-08-21 09:42] VITALS: BP 130/88; PULSE 94; RESP 20; TEMP 36.5; O2SAT 100
[2023-08-21] MEDS: iohexoL 350 MG/ML 100 ML INFUS..BTL IV (10:10)
[2023-08-21] MEDS: Lactulose 320 GM/480 ML SOLUTION 200 GM PR (11:23)
[2023-08-21 13:22] VITALS: BP 138/94; PULSE 84; RESP 18; TEMP 36.6; O2SAT 99
[2023-08-21 16:21] VITALS: BP 130/70; PULSE 83; RESP 18; TEMP 36.6; O2SAT 96
== END 2023-08-21 16:24 | disposition home or self-care (01) ==
PROVIDERS: Emergency Provider Emergency Medicine
DX: K59.00 Constipation, unspecified (principal); L89.159 Pressure ulcer of sacral region, unspecified stage; G35 Multiple sclerosis; Z79.899 Other long term (current) drug therapy
CPT/HCPCS: 36415; 74177; 80048; 80076; 83690; 83735; 85025; 86140; 96360; 96361; 99284; Q9967

== ENCOUNTER 2023-08-30 08:30 | Observation (INO) | payer OTHER, SELFPAY ==
[2023-08-30] VITALS (9 sets, daily range): BP systolic 112–149; BP diastolic 74–86; PULSE 90–136; RESP 14–18; TEMP 36.2–37.1; O2SAT 94–100; BMI 19.0; BMI 20.9
--- NOTE | 2023-08-30 | ECG_ITS ---
Test Reason : tachycardia Blood Pressure : / mmHG Vent. Rate : 136 BPM Atrial Rate : 136 BPM P-R Int : 128 ms QRS Dur : 088 ms QT Int : 280 ms P-R-T Axes : 070 074 044 degrees QTc Int : 421 ms Sinus tachycardia Possible Left atrial enlargement Borderline ECG When compared with ECG of 21-JAN-2023 18:52, Vent. rate has increased BY 58 BPM Referred By: Destini Galloway Electronically Signed By:Raciel Ludwig
--- NOTE | 2023-08-30 08:38 | MHC.SHP ---
Pre-Procedural Eval Section A - 24 Hr Update-Section A only Date of Service: 08/30/23 The patient is an INPATIENT: No The patient has been examined within 24 hours of the surgical procedure. The History & Physical has been completed within 30 days and I have reviewed it.: No Section B - Complete if H&P > 30 days Chief Complaint: Status Post PEG Placement Relevant Family History (Specify if Yes): No Relevant Social History: None Present Medications: see Short Stay Collaborative assessment Medical History: Significant History (Failure to thrive in adult Seizures Constipation Neuromyopathy UTI (urinary tract infection) Suprapubic catheter Hepatitis C Multiple sclerosis) History of Previous Operations: Relevant previous surgery/procedure and date(s) (Hx of cystoscopy) Allergies: Allergies Allergy/AdvReac Type Severity Reaction Status Date / Time bee pollen [BEE STINGS] Allergy Severe Anaphylaxis Verified 08/21/23 08:20 Review of Systems Sugical H&P ROS: Negative: Respiratory and Gastrointestinal and Yes, Specify: Constitution (Non verbal) Exam Surgical H&P Exam: Normal: Heart, Normal: Lungs and Normal: Abdomen Plan Diagnosis/Plan: Unchanged I have reviewed the history and physical and performed a pertinent physical examination on my patient. No changes have occurred unless specified. Time Spent With Patient Time: Total time managing care of this patient today ____ minutes.
--- OUTSIDE RECORDS SUMMARY | 2023-08-30 08:48 | XMS_ITS | Continuity of Care Document ---
Author Organization [facility] Adult Address [address] [place] [address]- Care Team Providers Care Creative/Art Director Name Role Phone Emma Cross MD Primary Care Physician Encounter [facility] Date(s): 11/25/20 - 12/25/20 [facility] [address] [place] [id number] Allergies, Adverse Reactions, Alerts Substance Reaction Severity Status Bee Stings Active Medications amantadine 100 mg oral capsule 100 mg, 1, capsule, By Mouth, 2 times a day, # 14 capsule, Refills 0, Maintenance, 07/08/20 13:29:00 EDT, Partial fill upon patient request if the prescription is for a schedule II opioid drug. Start Date: 07/08/20 Stop Date: 07/15/20 Status: Ordered Artificial Tears 0.5% Ophth Refills 0, Maintenance, 08/20/20 12:02:00 EDT, Partial fill upon patient request if the prescription is for a schedule II opioid drug. Start Date: 08/20/20 Status: Ordered baclofen 10 mg oral tablet 1 tablet = 10 mg, By Mouth, 0 Refills, Maintenance Start Date: 06/21/11 Status: Ordered Colace Clear = 100 mg, By Mouth, 2 times a day, bid, 0 Refills, Maintenance, 07/08/20 13:39:00 EDT, Partial fillupon patient request if the prescription is for a schedule II opioid drug. Start Date: 07/08/20 Status: Ordered Colace sodium 100 mg oral capsule 100 mg, 1, capsule, By Mouth, 2 times a day, PRN, # 180 capsule, Refills 1, Tot. Refills 1, Maintenance, for constipation, 09/18/20 19:52:00 EDT, Route to Pharmacy Electronically, [facility], Partial fill upon patient request if the prescrip... Start Date: 09/18/20 Stop Date: 03/17/21 Status: Ordered Depends extra-large Depends extra-large, See Instructions, # 100 each, Refills 1, Tot. Refills 1, Maintenance, DX: Urine incontinence, 10/22/20 3:55:00 EDT, Supply, 178, cm, 10/18/20 13:16:00 EDT, Height Start Date: 10/22/20 Status: Ordered Dilantin 100 mg oral capsule, extended release 3 capsule = 300 mg, By Mouth, Daily at bedtime, # 270 capsule, 0 Refills, Maintenance, 07/08/20 13:34:00 EDT, CR Capsule, Partial fill upon patient request if the prescription is for a schedule II opioid drug. Start Date: 07/08/20 Status: Ordered Dilaudid 2 mg oral tablet 1 tablet = 2 mg, By Mouth, Every 4 hours, PRN as needed for pain, 0 Refills, Maintenance, 07/08/20 13:44:00 EDT, Tablet, Partial fill upon patient request if the prescription is for a schedule II opioid drug. Start Date: 07/08/20 Status: Ordered EpiPen 2-Cesar = 0.3 mg, Intramuscular, Once, prn, 0 Refills, Maintenance, 07/08/20 13:47:00 EDT, Partial fill upon patient request if the prescription is for a schedule II opioid drug. Start Date: 07/08/20 Status: Ordered Fleet Enema Rectally, Once, PRN, 0 Refills, Maintenance, 07/08/20 13:29:00 EDT, Partial fill upon patient request if the prescription is for a schedule II opioid drug. Start Date: 07/08/20 Status: Ordered fosfomycin 3 gm oral powder for reconstitution = 3 Gm, By Mouth, Once, every 14 days, # 6 each, 3 Refills, Soft Stop, 10/08/20 16:27:00 EDT, Powder, [facility], Partial fill upon patient request if the prescription is for a schedule II opioid drug., 178, cm, 08/20/20 11:49:00 EDT, Height Start Date: 10/08/20 Status: Ordered gabapentin 600 mg oral tablet 2 tablet = 1,200 mg, By Mouth, 3 times a day, 2 tabs TID, 0 Refills, Maintenance, 07/08/20 13:35:00EDT, Partial fill upon patient request if the prescription is for a schedule II opioid drug. Start Date: 07/08/20 Status: Ordered loratadine 10 mg oral tablet See Instructions, TAKE 1 TABLET BY MOUTH EVERY MORNING FOR ALLERGIES OR NASAL CONGESTION MAY CRUSH AND GIVE IN APPLESAUCE, PUDDING, OR YOGURT, # 30 tablet, Refills 5, Tot. Refills 5, 09/12/20 11:27:00 EDT, Instructions Replace Required Details, Route... Start Date: 09/12/20 Status: Ordered Magnesium Citrate By Mouth, 10 ounzes on and Fridays, 0 Refills, Maintenance, 07/08/20 13:46:00 EDT, Partial fill upon patient request if the prescription is for a schedule II opioid drug. Start Date: 07/08/20 Status: Ordered methadone 10 mg oral tablet 1 tablet = 10 mg, By Mouth, TID, 0 Refills, Maintenance, 07/08/20 13:32:00 EDT, Partial fill upon patient request if the prescription is for a schedule II opioid drug. Start Date: 07/08/20 Status: Ordered methadone 5 mg oral tablet 1 tablet = 5 mg, By Mouth, Every 8 hours, 0 Refills, Maintenance, 07/08/20 13:32:00 EDT, Partial fill upon patient request if the prescription is for a schedule II opioid drug. Start Date: 07/08/20 Status: Ordered metoprolol succinate 25 mg oral capsule, extended release 1 capsule = 25 mg, By Mouth, Daily, Discontinue tartrate form, # 90 capsule, 1 Refills, Maintenance, 11/29/20 17:31:00 EDT, ER Capsule, [facility], Partial fill upon patient request if the prescription is for a schedule II opioid drug., 178,... Start Date: 11/29/20 Status: Ordered Milk of Magnesia By Mouth, Daily at bedtime, 30 ml prn, 0 Refills, Maintenance, 08/20/20 12:00:00 EDT, Partial fill upon patient request if the prescription is for a schedule II opioid drug. Start Date: 08/20/20 Status: Ordered Misc Rx Refills 0, Maintenance, Ensure, drink 8 ounzes three time daily, 08/20/20 11:59:00 EDT, Supply Start Date: 08/20/20 Status: Ordered Nizoral 2% Topical Topically, cream, TID and PRN, 0 Refills, Maintenance Start Date: 07/08/20 Status: Ordered Nizoral 2% topical shampoo See Instructions, Use shampoo and rinse twice a week for 8 weeks, # 120 mL, 1 Refills, Soft Stop, 10/22/20 3:53:00 EDT, [facility], Partial fill upon patient request if the prescription is for a schedule II opioid drug., Use shampoo and rins... Start Date: 10/22/20 Status: Ordered Saline Nasal Mist TID and PRN, 0 Refills, Maintenance, 07/08/20 13:40:00 EDT, Partial fill upon patient request if the prescription is for a schedule II opioid drug. Start Date: 07/08/20 Status: Ordered Senna 8.6 mg oral tablet See Instructions, TAKE 2 TABLETS (17.2MG) BY MOUTH TWICE DAILY FOR CONSTIPATION, MAY CRUSH AND GIVEIN APPLESAUCE PUDDING OR YOGURT, # 120 tablet, Refills 0, Acute, Instructions Replace Required Details, Route to Pharmacy Electronically, [facility]... Start Date: 09/18/20 Status: Ordered Tecfidera 240 mg oral delayed release capsule 1 capsule = 240 mg, By Mouth, 2 times a day, # 60 capsule, 0 Refills, Maintenance, 07/08/20 13:31:00 EDT, CR Capsule, Partial fill upon patient request if the prescription is for a schedule II opioiddrug. Start Date: 07/08/20 Status: Ordered Tylenol 8 Hour 650 mg oral tablet, extended release 2 tablet = 1,300 mg, By Mouth, Every 8 hours, PRN as needed for fever, # 100 tablet, 0 Refills, Maintenance, 08/20/20 12:00:00 EDT, ER Tablet, Partial fill upon patient request if the prescription isfor a schedule II opioid drug. Start Date: 08/20/20 Status: Ordered Valium 5 mg oral tablet 5 mg, 1, tablet, By Mouth, 3 times a day, Masspat reviewed, # 90 tablet, Refills 0, Tot. Refills 0,Acute 11/12/21 12:38:00 EST, 12/24/20 12:37:00 EDT, Route to Pharmacy Electronically, [facility], Partial fill upon patient request if the pr... Start Date: 12/24/20 Stop Date: 01/24/21 Status: Ordered Vitamin C 500 mg oral tablet 1 tablet, By Mouth, 2 times a day, CRUSH. 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 Sex
--- OUTSIDE RECORDS SUMMARY | 2023-08-30 08:48 | XMS_ITS | Continuity of Care Document ---
Author Organization [facility] Address [address] [place] [id number]- Care Team Providers Care Public Health Internship Name Role Phone Emma Cross MD Primary Care Physician [place] [facility] [place]20 - 11/22/20 [facility] [address] [place] [id number]- Attending Physician: Duncan Chan Admitting Physician: Duncan Chan Referring Physician: AdmtrDuncan Allergies, Adverse Reactions, Alerts Substance Reaction Severity [...] 09/18/20 19:52:00 EDT, Route to Pharmacy Electronically, [facility], Partial fill upon patient request if [...] Refills, Soft Stop, 10/08/20 16:27:00 EDT, Powder, [facility], Partial fill upon patient request if [...] opioid drug. Start Date: 07/08/20 Status: Ordered Lopressor 50 mg oral tablet 25 mg, 0.5, tablet, By Mouth, 2 times a day, half a tab daily 25 mg, # 90 tablet, Refills 1, Tot. Refills 1, Maintenance, 09/18/20 19:49:00 EDT, Route to Pharmacy Electronically, [facility], Partial fill upon patient request if the prescript... Start Date: 09/18/20 Stop Date: 03/17/21 Status: Ordered loratadine 10 mg oral tablet [...] opioid drug. Start Date: 07/08/20 Status: Ordered Milk of Magnesia By Mouth, Daily at bedtime, 30 ml prn, 0 Refills, Maintenance, 08/20/20 12:00:00 EDT, Partial fill upon patient request if the prescription is for a schedule II opioid drug. Start Date: 08/20/20 Status: [facility], Maintenance, Ensure, drink 8 ounzes three time daily, 08/20/20 11:59:00 EDT, Supply Start Date: 08/20/20 Status: Ordered Nizoral 2% Topical Topically, cream, TID and PRN, 0 Refills, Maintenance Start Date: 07/08/20 Status: Ordered Nizoral 2% topical shampoo See Instructions, Use shampoo and rinse twice a week for 8 weeks, # 120 mL, 1 Refills, Soft Stop, 10/22/20 3:53:00 EDT, [facility], Partial fill upon patient request if [...] Replace Required Details, Route to Pharmacy Electronically, [facility]... Start Date: 09/18/20 Status: Ordered Tecfidera [...] tablet, By Mouth, 3 times a day, Refills 0, Maintenance, 07/08/20 13:31:00 EDT, Partial fill upon patient request if the prescription is for a schedule II opioid drug. Start Date: 07/08/20 Status: Ordered Vitamin C 500 mg oral tablet 1 tablet, By Mouth, 2 times a day, CRUSH. GIVE IN APPLESAUCE, PUDDING, OR YOGURT., # 180 tablet, 1 Refills, Maintenance, 09/30/20 17:25:00 EDT, [facility], 178, cm, 08/20/20 11:49:00 EDT, Height [...]
--- OUTSIDE RECORDS SUMMARY | 2023-08-30 08:48 | XMS_ITS | Continuity of Care Document ---
Author Organization [facility] Address [address] [place] [address]- Care Team Providers Care Mechanical Integrity Specialist Name Role Phone Tay FRANZ, Emma Nagel Primary Care Physician Encounter [facility] [id number] Date(s): 05/08/20 - 07/04/20 [facility] [address] [place] [address]- Attending Physician: Mark FRANZ, Pedro Simmons Allergies, Adverse Reactions, Alerts Substance Reaction Severity Status Bee Stings Active Medications baclofen 10 mg oral tablet 1 tablet = 10 mg, By Mouth, 0 Refills, Maintenance Start Date: 06/21/11 Status: Ordered PredniSONE By Mouth, Daily, 0 Refills, Maintenance Start Date: 06/20/11 Status: Ordered Problem List Condition Effective Dates Status Health Status Inform ant Major depression in remission(Confirmed) Active Relapsing remitting multiple sclerosis(Confirmed) Active SDH - Subdural hematoma(Confirmed) Active
--- OUTSIDE RECORDS SUMMARY | 2023-08-30 08:48 | XMS_ITS | Continuity of Care Document ---
Author Organization [facility] Primary Car [facility] Address [address] [place] [address]- Care Team Providers Care Hob Mill Operator Name Role Phone Tay FRANZ, Emma Nagel Primary Care Physician Encounter [facility] Date(s): 05/28/20 - 08/03/20 [facility] [address] [place] [address]- Attending Physician: Pedro Flores MD Allergies, Adverse Reactions, Alerts Substance Reaction Severity Status Bee Stings Active Medications amantadine 100 mg oral capsule 100 mg, 1, capsule, By Mouth, 2 times a day, # 14 capsule, Refills 0, Maintenance, 07/08/20 13:29:00 EDT, Partial fill upon patient request if the prescription is for a schedule II opioid drug. Start Date: 07/08/20 Stop Date: 07/15/20 Status: Ordered ascorbic acid 500 mg oral tablet 1 tablet = 500 mg, By Mouth, Daily, BID, # 60 tablet, 0 Refills, Maintenance, 07/08/20 13:30:00 EDT, Tablet, Partial fill upon patient request if the prescription is for a schedule II opioid drug. Start Date: 07/08/20 Status: Ordered baclofen 10 mg oral tablet 1 tablet = 10 mg, By Mouth, 0 Refills, Maintenance Start Date: 06/21/11 Status: Ordered Claritin 10 mg oral tablet 10 mg, 1, tablet, By Mouth, Daily, # 14 tablet, Refills 0, Maintenance, 07/08/20 13:45:00 EDT, Partial fill upon patient request if the prescription is for a schedule II opioid drug. Start Date: 07/08/20 Stop Date: 07/22/20 Status: Ordered Colace Clear = 100 mg, By Mouth, 2 times a day, bid, 0 Refills, Maintenance, 07/08/20 13:39:00 EDT, Partial fillupon patient request if the prescription is for a schedule II opioid drug. Start Date: 07/08/20 Status: Ordered Dilantin 100 mg oral capsule, [...] opioid drug. Start Date: 07/08/20 Status: Ordered Fosfomycin Powder = 3 Gm, By Mouth, Once, every 14 days, 0 Refills, Maintenance, 07/08/20 13:44:00 EDT, Partial fill upon patient request if the prescription is for a schedule II opioid drug. Start Date: 07/08/20 Status: Ordered gabapentin 600 mg oral tablet [...] day, half a tab daily 25 mg, Refills 0, Maintenance, 07/08/20 13:42:00 EDT, Partial fill upon patient request if the prescription is for a schedule II opioid drug. Start Date: 07/08/20 Status: Ordered Magnesium Citrate By Mouth, 10 [...] opioid drug. Start Date: 07/08/20 Status: Ordered MiraLax Powder = 17 Gm, By Mouth, Daily, BID, 0 Refills, Maintenance, 07/08/20 13:46:00 EDT, Partial fill upon patient request if the prescription is for a schedule II opioid drug. Start Date: 07/08/20 Status: Ordered Nizoral 2% Topical Topically, cream, TID and PRN, 0 Refills, Maintenance Start Date: 07/08/20 Status: Ordered Saline Nasal Mist TID and PRN, 0 Refills, Maintenance, 07/08/20 13:40:00 EDT, Partial fill upon patient request if the prescription is for a schedule II opioid drug. Start Date: 07/08/20 Status: Ordered Tecfidera 240 mg oral delayed release capsule 1 capsule = 240 mg, By Mouth, 2 times a day, # 60 capsule, 0 Refills, Maintenance, 07/08/20 13:31:00 EDT, CR Capsule, Partial fill upon patient request if the prescription is for a schedule II opioiddrug. Start Date: 07/08/20 Status: Ordered Valium 5 mg oral tablet 5 mg, 1, tablet, By Mouth, 3 times a day, Refills 0, Maintenance, 07/08/20 13:31:00 EDT, Partial fill upon patient request if the prescription is for a schedule II opioid drug. Start Date: 07/08/20 Status: Ordered Problem List Condition Effective Dates Status Health Status Inform ant Chronic constipation(Confirmed) Active History of GI bleed(Confirmed) Active Hypertension(Confirmed) Active Major depression in remission(Confirmed) Active Relapsing remitting multiple sclerosis(Confirmed) Active SDH - Subdural hematoma(Confirmed) Active Social History Social History Type Response Tobacco Use: 4 or less cigar ettes(less than 1/4 pack)/day in last 30 days. Sex
--- OUTSIDE RECORDS SUMMARY | 2023-08-30 08:48 | XMS_ITS | Continuity of Care Document ---
Author Organization [facility] Address [facility] [place] [address]- Care Team Providers Care Wafer Polishing Lead Worker Name Role Phone Tay FRANZ, Emma Nagel Primary Care Physician Encounter [facility] [place] Date(s): 03/02/23 - 04/01/23 [facility] [address] [place] [phone]- [place] Allergies, Adverse Reactions, Alerts Substance Reaction Severity Status Bee Stings Active Immunizations Given and Recorded Vaccine Date Status Refusal Reason pneumococcal 20-valent conjugate vaccine 08/19/22 Given influenza virus vaccine, inactivated 01/02/22 Leonidas rded influenza virus vaccine, inactivated 12/03/19 Leonidas rded [id number] 12y+ bivalent booster vax 01/02/22 Recorded tetanus/diphtheria/pertussis, acel(Tdap) 07/18/21 Given SARS-CoV-2 (COVID-19) mRNA-1273 vaccine 01/31/21 R ecorded SARS-CoV-2 (COVID-19) mRNA BNT-162b2 vac 04/17/20 Recorded SARS-CoV-2 (COVID-19) mRNA BNT-162b2 vac 03/27/20 Recorded Medications amantadine 100 mg oral capsule 100 mg, 1, capsule, By Mouth, 2 times a day, # 14 capsule, Refills 0, Maintenance, 07/08/20 13:29:00 EDT, Partial fill upon patient request if the prescription is for a schedule II opioid drug. Start Date: 07/08/20 Stop Date: 07/15/20 Status: Ordered amitriptyline 100 mg oral tablet 1 tablet = 100 mg, By Mouth, Daily at bedtime, # 90 tablet, 3 Refills, Maintenance, 11/02/22 9:12:00 EDT, Tablet, [facility], Partial fill upon patient request if the prescription is for a schedule II opioid drug., 178, cm, 06/07/23 11:20:00... Start Date: 11/02/22 Status: Ordered atorvastatin 10 mg oral tablet 1 tablet = 10 mg, By Mouth, Daily, (after supper), # 90 tablet, 1 Refills, Maintenance, 03/01/23 13:22:00 EST, [facility], Partial fill upon patient request if the prescription is for a schedule II opioid drug., 178, cm, 08/19/22 11:20:00 ED... Start Date: 03/01/23 Status: Ordered baclofen 10 mg oral tablet 1 tablet = 10 mg, By Mouth, 0 Refills, Maintenance Start Date: 06/21/11 Status: Ordered Chux (Blue pad Chux (Blue pad, See Instructions, # 360 each, Refills 1, Tot. Refills 1, Maintenance, Uses 4 piecesdaily Dx: Urine Incontinence, 10/06/21 17:59:00 EDT, Supply, 178judy, 07/18/21 8:41:00 EDT, Height Start Date: 10/06/21 Status: Ordered Colace sodium 100 mg oral capsule 100 mg, 1, capsule, By Mouth, 2 times a day, PRN, # 180 capsule, Refills 1, Tot. Refills 1, Maintenance, for constipation, 02/25/23 11:49:00 EST, Route to Pharmacy Electronically, [facility], Partial fill upon patient request if the prescrip... Start Date: 02/25/23 Status: Ordered Diapers See Instructions, # 540 each, Refills 3, Tot. Refills 3, Maintenance, Size XL Dx:urine incontinence, 03/28/21 18:21:00 EST, Supply, 178judy, 01/31/21 10:05:00 EST, Height Start Date: 03/28/21 Status: Ordered diazepam 5 mg oral tablet See Instructions, Decrease dose to 1 tab daily for 10 days, then 1/2 tab daily for 7 days, then 1/2tab every other day for 7 days then discontinue, # 15 tablet, Refills 0, Tot. Refills 0, Maintenance, 06/16/22 18:17:00 EDT, Instructions Replace Requi... Start Date: 06/16/22 Status: Ordered Dilantin 100 mg oral capsule, extended release 3 capsule = 300 mg, By Mouth, Daily at bedtime, # 270 capsule, 0 Refills, Maintenance, 07/08/20 13:34:00 EDT, CR Capsule, Partial fill upon patient request if the prescription is for a schedule II opioid drug. Start Date: 07/08/20 Status: Ordered EPINEPHrine 0.3 mg injectable solution See Instructions, INJECT 0.3MG INTO THE MUSCLE ONCE NEEDED FOR ANAPHYLACTIC REACTION, # 2 each, 0 Refills, Maintenance, 11/23/21 13:34:00 EDT, [facility], 178, cm, 07/18/21 8:41:00 EDT, Height Start Date: 11/23/21 Status: Ordered EpiPen 2-Cesar 0.3 mg injectable kit = 0.3 mg, Intramuscular, Once, PRN Anaphylactic Reaction, # 1 pack/packet, 1 Refills, Soft Stop, 08/25/22 12:55:00 EDT, [facility], Partial fill upon patient request if the prescription is for a schedule II opioid drug., 178, cm, 08/19/22 11... Start Date: 08/25/22 Status: Ordered Flonase 50 mcg/inh nasal spray 2 sprays, Nares, Both, Daily in AM, # 16 Gm, 0 Refills, Maintenance, 04/16/22 16:53:00 EST, [place], Partial fill upon patient request if the prescription is for a schedule II opioid drug., 2 sprays Nares, Both Daily in AM, 178, cm, 07/18/21 8:41:00 EDT... Start Date: 04/16/22 Status: Ordered loratadine 10 mg oral tablet See Instructions, TAKE 1 TABLET BY MOUTH EVERY MORNING FOR ALLERGIES OR NASAL CONGESTION MAY CRUSH AND GIVE IN APPLESAUCE, PUDDING, OR YOGURT, # 90 tablet, Refills 1, Tot. Refills 1, Maintenance, 04/01/23 16:42:00 EST, Instructions Replace Required De... Start Date: 04/01/23 Status: Ordered magnesium citrate 8.85% oral liquid See Instructions, 10 ml By Mouth on Tuesdays and Fridays, # 300 mL, 1 Refills, Soft Stop, 09/23/21 21:17:00 EDT, Liquid, [facility], Partial fill upon patient request if the prescription isfor a schedule II opioid drug., 10 ml By Mouth on... Start Date: 09/23/21 Status: Ordered Melatonin 5 mg oral tablet 1 tablet = 5 mg, By Mouth, Daily at bedtime, # 90 tablet, 3 Refills, Maintenance, 11/02/22 9:15:00 EDT, [facility], Partial fill upon patient request if the prescription is for a schedule II opioid drug., 178, cm, 08/19/22 11:20:00 EDT, Height Start Date: 11/02/22 Status: Ordered Metoprolol Succinate ER 25 mg oral tablet, extended release 1 tablet, By Mouth, Daily in AM, # 30 tablet, 5 Refills, 11/05/21 11:01:00 EDT, [facility], 178, cm, 07/18/21 8:41:00 EDT, Height Start Date: 11/05/21 Status: Ordered Metoprolol Succinate ER 25 mg oral tablet, extended release See Instructions, TAKE 1 TABLET BY MOUTH EVERY MORNING, # 90 tablet, 1 Refills, Maintenance, 04/01/23 16:41:00 EST, [facility], 178, cm, 08/19/22 11:20:00 EDT, Height Start Date: 04/01/23 Status: Ordered Milk of Magnesia By Mouth, Daily at bedtime, 30 ml prn, 0 Refills, Maintenance, 08/20/20 12:00:00 EDT, Partial fill upon patient request if the prescription is for a schedule II opioid drug. Start Date: 08/20/20 Status: Ordered Milk of Magnesia 8% oral suspension 30 mL = 2.4 Gm, By Mouth, Daily at bedtime, PRN for constipation, # 150 mL, 0 Refills, Maintenance,06/22/22 17:35:00 EDT, Suspension, [facility], Partial fill upon patient request if the prescription is for a schedule II opioid drug., 178,... Start Date: 06/22/22 Status: Ordered Misc Rx Misc Rx, 8 ounces, By Mouth, 3 times a day with meals, # 90 each, Refills 11, Tot. Refills 11, Maintenance, 8 oz 3 times daily w/meals or can add to food for nutritional supplementation, 01/28/23 9:04:00 EST, Supply, 178, cm, 08/19/22 11:20:00 EDT, He... Start Date: 01/28/23 Status: Ordered Monurol 3 g oral granule for reconstitution See Instructions, TAKE 3 GM BY MOUTH ONCE EVERY 14 DAYS DIRECTED, # 2 each, 5 Refills, Maintenance, 12/04/21 10:11:00 EDT, [facility], 178, cm, 07/18/21 8:41:00 EDT, Height Start Date: 12/04/21 Status: Ordered Nizoral 2% Topical Topically, cream, TID and PRN, 0 Refills, Maintenance Start Date: 07/08/20 Status: Ordered Nizoral 2% topical shampoo See Instructions, Use shampoo and rinse twice a week for 8 weeks, # 120 mL, 1 Refills, Soft Stop, 10/22/20 3:53:00 EDT, [facility], Partial fill upon patient request if the prescription is for a schedule II opioid drug., Use shampoo and rins... Start Date: 10/22/20 Status: Ordered Nizoral 2% topical shampoo See Instructions, PRN as needed, Apply as shampoo 3 times a week for 8 weeks. Rinse, # 120 mL, 1 Refills, Soft Stop, 05/17/22 13:15:00 EST, Shampoo, [facility], Partial fill upon patient request if the prescription is for a schedule II opio... Start Date: 05/17/22 Status: Ordered polyethylene glycol 3350 oral powder for reconstitution = 17 Gm, By Mouth, Daily, dissolve in 4 to 8 oz of beverage As needed for worsening constipation, #255 Gm, 0 Refills, Acute 05/07/23 17:12:00 EST, 04/01/23 17:11:00 EST, REC Powder, [facility], Partial fill upon patient request if the pr... Start Date: 04/01/23 Stop Date: 05/07/23 Status: Ordered Senna 8.6 mg oral tablet 2, tablet, By Mouth, 2 times a day, CRUSH. GIVE IN APPLESAUCE PUDDING OR YOGURT., # 100 tablet, Refills 2, Tot. Refills 2, Maintenance, 04/01/23 17:06:00 EST, Route to Pharmacy Electronically, [facility], 178, cm, 08/19/22 11:20:00 EDT, Height Start Date: 04/01/23 Status: Ordered Tecfidera 240 mg oral delayed release capsule 1 capsule = 240 mg, By Mouth, 2 times a day, # 60 capsule, 0 Refills, Maintenance, 07/08/20 13:31:00 EDT, [facility] Capsule, Partial fill upon patient request if the prescription is for a schedule II opioiddrug. Start Date: 07/08/20 Status: Ordered Thick-it Thick-it, See Instructions, # 3 each, Refills 6, Tot. Refills 6, Maintenance, Use to thicken liquids before intake, 07/04/21 17:18:00 EDT, Supply, 178, cm, 01/31/21 10:05:00 EST, Height Start Date: 07/04/21 Status: Ordered THICK-IT #2 POW THICK-IT #2 POW, See Instructions, # 1,020 Gm, 2 Refills, Maintenance, USE TO THICKEN LIQUIDS BEFORE INTAKE, 01/20/22 10:03:00 EST, 178, cm, 07/18/21 8:41:00 EDT, Height Start Date: 01/20/22 Status: Ordered Vitamin C 500 mg oral tablet 1 tablet, By Mouth, 2 times a day, INSTR:CRUSH. GIVE IN APPLESAUCE, PUDDING, OR YOGURT., # 60 tablet, 4 Refills, [facility], 178, cm, 07/18/21 8:41:00 EDT, Height Start Date: 10/07/21 Status: Ordered XL depends XL depends, See Instructions, # 100 each, Refills 1, Tot. Refills 1, Maintenance, DX: Urine incontinence, 03/18/21 11:23:00 EST, Supply, 178, cm, 01/31/21 10:05:00 EST, Height Start Date: 03/18/21 Status: Ordered Problem List Condition Confirmation Course Effective Dates Status Health Status Informant Abnormal weight loss Confirmed Active Elevated ALT measurement Confirmed Active Chronic constipation Confirmed Active Lesion of colon Confirmed Active Decreased hearing Confirmed Active Neurogenic dysphagia Confirmed Active History of GI bleed Confirmed Active Hypercholesteremia Confirmed Active Hyperlipidemia Confirmed Active Hypertension Confirmed Active Major depression in remission Confirmed Active Neurogenic bladder Confirmed Active Poor nutrition Confirmed Active Relapsing remitting multiple sclerosis Confirmed Active SDH - Subdural hematoma Confirmed Active Seborrheic dermatitis Confirmed Active Seizure disorder Confirmed Active Social History Social History Type Response Smoking Status Former smoker, quit more than 30 days ago; Other: >1 year; entered on: 08/19/22 Sex Patient Care team information Care Team Personnel Name: Mary Hollins [place] Position: [facility] RN Member Role: Primary Care Nurse Name: Emma Cross MD Position: [facility] Physician - Primary Care Member Role: PCP Address: Address: [address] [place] [address], [address] [place] [address]- Care Team Related Persons Name: KORIN KIRKPATRICK Address: home [address] [place] [address] Name: VERONA KIRKPATRICK Address: home [address] [place] [address] Name: JOE DIAZ Address: home [address] [place] [address] Name: NA VINES Address: [address] [place] [address]
--- OUTSIDE RECORDS SUMMARY | 2023-08-30 08:48 | XMS_ITS | Continuity of Care Document ---
Author Organization [facility] Primary [facility] [place] Address [address] [place] [address]- Care Team Providers Care Fast Food Delivery Driver Name Role Phone Emma Cross MD Primary Care Physician Encounter [facility] Date(s): 07/04/20 - 08/03/20 [facility] [address] [place] [address]- Attending Physician: Duncan Chan Admitting Physician: Duncan [...]
--- OUTSIDE RECORDS SUMMARY | 2023-08-30 08:48 | XMS_ITS | Continuity of Care Document ---
Author Organization [facility] Address Unknown Care Team Providers Care Outsole Scheduler Name Role Phone Emma Cross MD Primary Care Physician En[place] [facility] [place](s): 07/23/21 - 08/22/21 [facility] Allergies, Adverse Reactions, Alerts Substance Reaction Severity Status Bee Stings Active Immunizations Given and Recorded Vaccine Date Status Refusal Reason tetanus/diphtheria/pertussis, acel(Tdap) 07/18/21 Given SARS-CoV-2 (COVID-19) mRNA-1273 vaccine 01/31/21 R ecorded SARS-CoV-2 (COVID-19) mRNA BNT-162b2 vac 04/17/20 Recorded SARS-CoV-2 (COVID-19) mRNA BNT-162b2 vac 03/27/20 Recorded influenza virus vaccine, inactivated 12/03/19 Leonidas rded Medications amantadine 100 mg oral capsule 100 mg, 1, capsule, By Mouth, 2 times a day, # 14 capsule, Refills 0, Maintenance, 07/08/20 13:29:00 EDT, Partial fill upon patient request if the prescription is for a schedule II opioid drug. Start Date: 07/08/20 Stop Date: 07/15/20 Status: Ordered baclofen 10 mg oral tablet 1 tablet = 10 mg, By Mouth, 0 Refills, Maintenance Start Date: 06/21/11 Status: Ordered Colace sodium 100 mg oral capsule 100 mg, 1, capsule, By Mouth, 2 times a day, PRN, # 180 capsule, Refills 1, Tot. Refills 1, Maintenance, for constipation, 03/26/21 14:49:00 EST, Route to Pharmacy Electronically, [facility], Partial fill upon patient request if the prescrip... Start Date: 03/26/21 Status: Ordered Diapers See Instructions, # 540 each, Refills 3, Tot. Refills 3, Maintenance, Size XL Dx:urine incontinence, 03/28/21 18:21:00 EST, Supply, 178, cm, 01/31/21 10:05:00 EST, Height Start Date: 03/28/21 Status: Ordered diazepam 5 mg oral tablet 5 mg, 1, tablet, By Mouth, 2 times a day, for 30 days, # 60 tablet, Refills 0, Tot. Refills 0, Acute 09/02/21 14:49:00 EDT, 08/03/21 14:49:00 EDT, Route to Pharmacy Electronically, [facility], Partial fill upon patient request if the prescri... Start Date: 08/03/21 Stop Date: 09/02/21 Status: Ordered Dilantin 100 mg oral capsule, [...] Start Date: 07/08/20 Status: Ordered EpiPen 2-Cesar 0.3 mg injectable kit = 0.3 mg, Intramuscular, Once, PRN Anaphylactic Reaction, # 1 each, 0 Refills, Soft Stop, 07/01/21 16:08:00 EDT, [facility], Partial fill upon patient request if the prescription is for a schedule II opioid drug., 178, judy, 01/31/21 10:05:00... Start Date: 07/01/21 Status: Ordered fosfomycin 3 gm oral powder for reconstitution = 3 Gm, By Mouth, Once, every 14 days, # 6 each, 0 Refills, Soft Stop, 06/02/21 16:58:00 EDT, Powder, [facility], Partial fill upon patient request if the prescription is for a schedule II opioid drug., 178, cm, 01/31/21 10:05:00 EST, Height Start Date: 06/02/21 Status: Ordered loratadine 10 mg oral tablet See Instructions, TAKE 1 TABLET BY MOUTH EVERY MORNING FOR ALLERGIES OR NASAL CONGESTION MAY CRUSH AND GIVE IN APPLESAUCE, PUDDING, OR YOGURT, # 90 tablet, Refills 1, Tot. Refills 1, 03/26/21 14:49:00 EST, Instructions Replace Required Details, Route... Start Date: 03/26/21 Status: Ordered magnesium citrate 8.85% oral liquid See Instructions, 10 ml By Mouth on Tuesdays and Fridays, # 300 mL, 1 Refills, Soft Stop, 05/02/21 17:04:00 EST, Liquid, [facility], Partial fill upon patient request if the prescription is for a schedule II opioid drug., 10 ml By Mouth... Start Date: 05/02/21 Status: Ordered Metoprolol Succinate ER 25 mg oral tablet, extended release 1 tablet, By Mouth, Daily in AM, # 30 tablet, 2 Refills, [facility], 178, cm, 01/31/21 10:05:00 EST, Height Start Date: 07/16/21 Status: Ordered Milk of Magnesia By Mouth, [...] 1 Refills, Soft Stop, 10/22/20 3:53:00 EDT, [facility], Partial fill upon patient request if the prescription is for a schedule II opioid drug., Use shampoo and rins... Start Date: 10/22/20 Status: Ordered polyethylene glycol 3350 oral powder for reconstitution = 17 Gm, By Mouth, 2 times a day, DIRECTED . MIXED INTO WATER, JUICE OR TEA., # 510 Gm, 4 Refills, [facility], 30, TAKE 17 GM BY MOUTH 2 TIMES A DAY DIRECTED . MIXED INTO WATER, JUICEOR TEA., 178, cm, 07/18/21 8:41:00 EDT, Height Start Date: 07/21/21 Status: Ordered Senna 8.6 mg oral tablet See Instructions, TAKE 2 TABLETS (17.2MG) BY MOUTH TWICE DAILY FOR CONSTIPATION, MAY CRUSH AND GIVEIN APPLESAUCE PUDDING OR YOGURT, # 120 tablet, Refills 0, Acute, Instructions Replace Required Details, Route to Pharmacy Electronically, [facility] Start Date: 09/18/20 Status: Ordered Tecfidera 240 [...] EST, Height Start Date: 07/04/21 Status: Ordered Tylenol 8 Hour 650 mg oral tablet, extended release 2 tablet = 1,300 mg, By Mouth, Every 8 hours, PRN as needed for fever, # 100 tablet, 0 Refills, Maintenance, 08/20/20 12:00:00 EDT, ER Tablet, Partial fill upon patient request if the prescription isfor a schedule II opioid drug. Start Date: 08/20/20 Status: Ordered Vitamin C 500 mg oral tablet 1 tablet, By Mouth, 2 times a day, CRUSH. GIVE IN APPLESAUCE, PUDDING, OR YOGURT., # 180 tablet, 1 Refills, Maintenance, 03/26/21 14:49:00 EST, [facility], 178, cm, 01/31/21 10:05:00 EST, Height Start Date: 03/26/21 Status: Ordered XL depends XL depends, See Instructions, # 100 each, Refills 1, Tot. Refills 1, Maintenance, DX: Urine incontinence, 03/18/21 11:23:00 EST, Supply, 178, cm, 01/31/21 10:05:00 EST, Height Start Date: 03/18/21 Status: Ordered Problem List Condition Effective Dates Status Health Status Inform ant Elevated ALT measurement(Confirmed) Active Chronic constipation(Confirmed) Active Lesion of colon(Confirmed) Active Decreased hearing(Confirmed) Active History of GI bleed(Confirmed) Active Hypercholesteremia(Confirmed) Active Hypertension(Confirmed) Active Major depression in remission(Confirmed) Active Relapsing remitting multiple sclerosis(Confirmed) Active SDH - Subdural hematoma(Confirmed) Active Seborrheic dermatitis(Confirmed) Active Social History Social History Type Response Tobacco Use: 4 or less cigar ettes(less than 1/4 pack)/day in last 30 days. Sex
--- OUTSIDE RECORDS SUMMARY | 2023-08-30 08:48 | XMS_ITS | Continuity of Care Document ---
Author Organization [facility] Address [address] [place] [address]- Care Team Providers Care Perishable Freight Inspector Name Role Phone Tay FRANZ, Emma Nagel Primary Care Physician [place] [facility] [place] [facility] [address] [place] [id number]- Attending Physician: Junie ACSTLE, Raquel Allergies, Adverse Reactions, Alerts Substance Reaction Severity [...]
--- OUTSIDE RECORDS SUMMARY | 2023-08-30 08:48 | XMS_ITS | Continuity of Care Document ---
Author Organization [facility] Address [address] [place] [address]- Care Team Providers Care Liturgical Music Director Name Role Phone Emma Cross MD Primary Care Physician [phone] Encounter [facility] [place] Date(s): 06/23/21 - 07/23/[address] [address] Attending Physician: Duncan Chan Admitting Physician: AdmDuncan bishop Referring Physician: Admtr, Ar8 Allergies, Adverse Reactions, Alerts Substance Reaction Severity [...] 03/26/21 14:49:00 EST, Route to Pharmacy Electronically, [facility], Partial fill upon patient request if [...] tablet, Refills 0, Tot. Refills 0, Acute 08/03/21 14:49:00 EDT, 07/04/21 14:49:00 EDT, Route to Pharmacy Electronically, [facility], Partial fill upon patient request if the prescri... Start Date: 07/04/21 Stop Date: 08/03/21 Status: Ordered Dilantin 100 mg oral capsule, [...] 0 Refills, Soft Stop, 07/01/21 16:08:00 EDT, [facility], Partial fill upon patient request if the prescription is for a schedule II opioid drug., 178, cm, 01/31/21 10:05:00... Start Date: 07/01/21 Status: Ordered fosfomycin 3 gm oral powder for reconstitution = 3 Gm, By Mouth, Once, every 14 days, # 6 each, 0 Refills, Soft Stop, 06/02/21 16:58:00 EDT, Powder, [facility], Partial fill upon patient request if the prescription is for a schedule II opioid drug., 178, cm, 01/31/21 10:05:00 EST, Height Start Date: 06/02/21 Status: Ordered gabapentin 600 mg oral tablet 1 tablet = 600 mg, By Mouth, 3 times a day, for 90 days, (Decreased dose), # 270 tablet, 1 Refills,Hard Stop 07/30/21 11:38:00 EDT, 01/31/21 11:38:00 EST, Tablet, [facility], Partial fill upon patient request if the prescription is for a sc... Start Date: 01/31/21 Stop Date: 07/30/21 Status: Ordered loratadine 10 mg oral tablet [...] Refills, Soft Stop, 05/02/21 17:04:00 EST, Liquid, [facility], Partial fill upon patient request if the prescription is for a schedule II opioid drug., 10 ml By Mouth... Start Date: 05/02/21 Status: Ordered Metoprolol Succinate ER 25 mg oral tablet, extended release 1 tablet, By Mouth, Daily in AM, # 30 tablet, 2 Refills, [facility], 178, cm, 01/31/21 10:05:00 EST, Height [...] 1 Refills, Soft Stop, 10/22/20 3:53:00 EDT, [facility], Partial fill upon patient request if the prescription is for a schedule II opioid drug., Use shampoo and rins... Start Date: 10/22/20 Status: Ordered polyethylene glycol 3350 oral powder for reconstitution = 17 Gm, By Mouth, 2 times a day, DIRECTED . MIXED INTO WATER, JUICE OR TEA., # 510 Gm, 4 Refills, [facility], 30, TAKE 17 GM BY MOUTH [...] Replace Required Details, Route to Pharmacy Electronically, [facility]... Start Date: 09/18/20 Status: Ordered Tecfidera [...] tablet, 1 Refills, Maintenance, 03/26/21 14:49:00 EST, [facility], 178, cm, 01/31/21 10:05:00 EST, Height Start [...]
--- OUTSIDE RECORDS SUMMARY | 2023-08-30 08:48 | XMS_ITS | Continuity of Care Document ---
Author Organization [facility] ter Address [address] [place] [id number]- Care Team Providers Care Fisheries Director Name Role Phone Emma Cross MD Primary Care Physician [place] [facility] [place]/[address] [address]- Encounter Diagnosis Chronic, continuous use of opioids(Final) - 11/13/20 Discharge Disposition: A-D/C Home Attending Physician: Keely Lares MD Admitting Physician: Keely Lares MD Referring Physician: Not on Staff, Referring MD Allergies, Adverse Reactions, Alerts Substance Reaction [...] 09/18/20 19:52:00 EDT, Route to Pharmacy Electronically, [facility], Partial fill upon patient request if [...] Refills, Soft Stop, 10/08/20 16:27:00 EDT, Powder, [facility], Partial fill upon patient request if [...] 09/18/20 19:49:00 EDT, Route to Pharmacy Electronically, [facility], Partial fill upon patient request if [...] Status: Ordered methadone 10 mg oral tablet 10 mg, Tablet, By Mouth, 11/13/20 15:00:00 EDT Start Date: 11/13/20 Stop Date: 11/13/20 Status: Completed methadone 10 mg oral tablet 1 tablet = 10 mg, By Mouth, TID, 0 Refills, Maintenance, 07/08/20 13:32:00 EDT, Partial fill upon patient request if the prescription is for a schedule II opioid drug. Start Date: 07/08/20 Status: Ordered methadone 5 mg oral tablet 5 mg, Tablet, By Mouth, 11/13/20 15:00:00 EDT Start Date: 11/13/20 Stop Date: 11/13/20 Status: Completed methadone 5 mg oral tablet 1 tablet [...] opioid drug. Start Date: 08/20/20 Status: Ordered [facility] Rx Refills 0, Maintenance, Ensure, drink 8 ounzes three time daily, 08/20/20 11:59:00 EDT, Supply Start Date: 08/20/20 Status: Ordered Nizoral 2% Topical Topically, cream, TID and PRN, 0 Refills, Maintenance Start Date: 07/08/20 Status: Ordered Nizoral 2% topical shampoo See Instructions, Use shampoo and rinse twice a week for 8 weeks, # 120 mL, 1 Refills, Soft Stop, 10/22/20 3:53:00 EDT, [facility], Partial fill upon patient request if [...] Replace Required Details, Route to Pharmacy Electronically, [facility]... Start Date: 09/18/20 Status: Ordered Tecfidera 240 [...] tablet, 1 Refills, Maintenance, 09/30/20 17:25:00 EDT, [facility], 178, cm, 08/20/20 11:49:00 EDT, Height Start Date: 09/30/20 Stop Date: 03/29/21 Status: Ordered Problem List Condition Effective Dates Status Health Status Inform ant Elevated ALT measurement(Confirmed) Active Chronic constipation(Confirmed) Active Decreased hearing(Confirmed) Active History of GI bleed(Confirmed) Active Hypertension(Confirmed) Active Major depression in remission(Confirmed) Active Relapsing remitting multiple sclerosis(Confirmed) Active SDH - Subdural hematoma(Confirmed) Active Seborrheic dermatitis(Confirmed) Active Vital Signs Most recent to oldest [Reference Range]: 1 2 3 Oxygen Saturation [94-100 %] 98 % (11/13/20 2:08 PM) Pulse Rate [55-90 bpm] 77 bpm (11/13/20 2:08 PM) Blood Pressure [90-138/55-84 mm Hg] 175/67mm Hg *H* (11/13/20 2:08 PM) Respiratory Rate [16-30 br/min] 18 br/min (11/13/20 2:26 PM) 18 br/min (11/13/20 2:26 PM) 16 br/min (11/13/20 2:08 PM) Temperature [96.8-100.4 DegF] 97.9 DegF (11/13/20 2:08 PM) Mode of Delivery (Oxygen) Room air (11/13/20 2:08 PM) Blood pressure sites Arm, right (11/13/20 2:08 PM) Temperature Route Oral (11/13/20 2:08 PM) Social History Social History Type Response Tobacco Use: 4 or less cigar ettes(less than 1/4 pack)/day in last 30 days. Sex
--- OUTSIDE RECORDS SUMMARY | 2023-08-30 08:48 | XMS_ITS | Continuity of Care Document ---
Author Organization [facility] Address [address] [place] [address]- Care Team Providers Care Endless Track Vehicle Supervisor Name Role Phone Tay FRANZ, Emma Nagel Primary Care Physician [phone] Encounter [facility] [place] Date(s): 06/18/20 - 07/18/20 [facility] [address] [place] [phone]- Attending Physician: Duncan Chan Admitting Physician: Duncan [...]
--- OUTSIDE RECORDS SUMMARY | 2023-08-30 08:48 | XMS_ITS | Continuity of Care Document ---
Author Organization [facility] Address [address] [place] [address]- Care Team Providers Care Bioinformatics Assistant Name Role Phone Emma Cross MD Primary Care Physician [phone] [place] [facility] [place] 07/23/21 - 08/22/21 [facility] [address] [place] [id number]- [place] Allergies, Adverse Reactions, Alerts Substance Reaction [...] 03/26/21 14:49:00 EST, Route to Pharmacy Electronically, [facility], Partial fill upon patient request if [...] 08/03/21 14:49:00 EDT, Route to Pharmacy Electronically, [facility], Partial fill upon patient request if [...] 0 Refills, Soft Stop, 07/01/21 16:08:00 EDT, [facility], Partial fill upon patient request if the prescription is for a schedule II opioid drug., 178, cm, 01/31/21 10:05:00... Start Date: 07/01/21 Status: Ordered fosfomycin 3 gm oral powder for reconstitution = 3 Gm, By Mouth, Once, every 14 days, # 6 each, 0 Refills, Soft Stop, 06/02/21 16:58:00 EDT, Powder, [facility], Partial fill upon patient request if [...] in AM, # 30 tablet, 2 Refills, [facility], 178, cm, 01/31/21 10:05:00 EST, Height Start Date: 07/16/21 Status: Ordered Milk of Magnesia By Mouth, Daily at bedtime, 30 ml prn, 0 Refills, Maintenance, 08/20/20 12:00:00 EDT, Partial fill upon patient request if the prescription is for a schedule II opioid drug. Start Date: 08/20/20 Status: Ordered [facility] Rx Refills 0, Maintenance, Ensure, drink 8 ounzes three time daily, 08/20/20 11:59:00 EDT, Supply Start Date: 08/20/20 Status: Ordered Nizoral 2% Topical Topically, cream, TID and PRN, 0 Refills, Maintenance Start Date: 07/08/20 Status: Ordered Nizoral 2% topical shampoo See Instructions, Use shampoo and rinse twice a week for 8 weeks, # 120 mL, 1 Refills, Soft Stop, 10/22/20 3:53:00 EDT, [facility], Partial fill upon patient request if the prescription is for a schedule II opioid drug., Use shampoo and rins... Start Date: 10/22/20 Status: Ordered polyethylene glycol 3350 oral powder for reconstitution = 17 Gm, By Mouth, 2 times a day, DIRECTED . MIXED INTO WATER, JUICE OR TEA., # 510 Gm, 4 Refills, [facility], 30, TAKE 17 GM BY MOUTH [...] Replace Required Details, Route to Pharmacy Electronically, [facility] Start Date: 09/18/20 Status: Ordered Tecfidera 240 [...] tablet, 1 Refills, Maintenance, 03/26/21 14:49:00 EST, [facility], 178, cm, 01/31/21 10:05:00 EST, Height [...]
--- OUTSIDE RECORDS SUMMARY | 2023-08-30 08:49 | XMS_ITS | Continuity of Care Document ---
Author Organization [facility] Address [address] [place] [address]- Care Team Providers Care Subpoena Server Name Role Phone Tay FRANZ, Emma Nagel Primary Care Physician Encounter [facility] Date(s): 05/28/20 - 07/27/20 [facility] [address] [place] [address]- Attending Physician: Pedro Flores MD Allergies, Adverse [...]
--- OUTSIDE RECORDS SUMMARY | 2023-08-30 08:49 | XMS_ITS | Continuity of Care Document ---
Author Organization [facility] Address [address] [place] [id number]- Care Team Providers Care Forest Science Professor Name Role Phone Emma Cross MD Primary Care Physician Encounter [facility] Date(s): 10/08/22 - 11/07/[address] [address] Attending Physician: Duncan Chan Admitting Physician: AdmtrDuncan Referring Physician: Admtr [id number] Allergies, Adverse Reactions, Alerts Substance Reaction Severity Status Bee Stings Active Immunizations Given and Recorded Vaccine Date Status Refusal Reason pneumococcal 20-valent conjugate vaccine 08/19/22 Given influenza virus vaccine, inactivated 01/02/22 Leonidas rded influenza virus vaccine, inactivated 12/03/19 Leonidas rded [id number] 12y+ bivalent booster vax 01/02/22 Recorded tetanus/diphtheria/pertussis, [...] 3 Refills, Maintenance, 11/02/22 9:12:00 EDT, Tablet, [facility], Partial fill upon patient request if the prescription is for a schedule II opioid drug., 178, cm, 08/19/22 11:20:00... Start Date: 11/02/22 Status: Ordered atorvastatin 10 mg oral tablet 1 tablet = 10 mg, By Mouth, Daily, (after supper), # 90 tablet, 1 Refills, Maintenance, 09/10/22 12:57:00 EDT, [facility], Partial fill upon patient request if the prescription is for a schedule II opioid drug., 178, cm, 08/19/22 11:20:00 ED... Start Date: 09/10/22 Status: Ordered baclofen 10 mg oral tablet [...] 1, Tot. Refills 1, Maintenance, for constipation, 09/10/22 12:57:00 EDT, Route to Pharmacy Electronically, [facility], Partial fill upon patient request if the prescrip... Start Date: 09/10/22 Status: Ordered Diapers See Instructions, # 540 [...] each, 0 Refills, Maintenance, 11/23/21 13:34:00 EDT, [facility], 178, cm, 07/18/21 8:41:00 EDT, Height Start Date: 11/23/21 Status: Ordered EpiPen 2-Cesar 0.3 mg injectable kit = 0.3 mg, Intramuscular, Once, PRN Anaphylactic Reaction, # 1 pack/packet, 1 Refills, Soft Stop, 08/25/22 12:55:00 EDT, [facility], Partial fill upon patient request if the prescription is for a schedule II opioid drug., 178, cm, 08/19/22 11... Start Date: 08/25/22 Status: Ordered Flonase 50 mcg/inh nasal spray 2 sprays, Nares, Both, Daily in AM, # 16 Gm, 0 Refills, Maintenance, 04/16/22 16:53:00 EST, [place], Partial fill upon patient request if the [...] tablet, Refills 1, Tot. Refills 1, Maintenance, 09/10/22 12:57:00 EDT, Instructions Replace Required De... Start Date: 09/10/22 Status: Ordered magnesium citrate 8.85% oral liquid See Instructions, 10 ml By Mouth on Tuesdays and Fridays, # 300 mL, 1 Refills, Soft Stop, 09/23/21 21:17:00 EDT, Liquid, [facility], Partial fill upon patient request if the prescription isfor a schedule II opioid drug., 10 ml By Mouth on... Start Date: 09/23/21 Status: Ordered Melatonin 5 mg oral tablet 1 tablet = 5 mg, By Mouth, Daily at bedtime, # 90 tablet, 3 Refills, Maintenance, 11/02/22 9:15:00 EDT, [facility], Partial fill upon patient request if the prescription is for a schedule II opioid drug., 178, cm, 08/19/22 11:20:00 EDT, Height Start Date: 11/02/22 Status: Ordered Metoprolol Succinate ER 25 mg oral tablet, extended release 1 tablet, By Mouth, Daily in AM, # 30 tablet, 5 Refills, 11/05/21 11:01:00 EDT, [facility], 178, cm, 07/18/21 8:41:00 EDT, Height Start Date: 11/05/21 Status: Ordered Metoprolol Succinate ER 25 mg oral tablet, extended release See Instructions, TAKE 1 TABLET BY MOUTH EVERY MORNING, # 90 tablet, 1 Refills, Maintenance, 09/10/22 12:57:00 EDT, [facility], 178, cm, 08/19/22 11:20:00 EDT, Height Start Date: 09/10/22 Status: Ordered Milk of Magnesia By Mouth, [...] mL, 0 Refills, Maintenance,06/22/22 17:35:00 EDT, Suspension, [facility], Partial fill upon patient request if the prescription is for a schedule II opioid drug., 178,... Start Date: 06/22/22 Status: Ordered Misc Rx Refills 0, Maintenance, Ensure, drink 8 ounzes three time daily, 08/20/20 11:59:00 EDT, Supply Start Date: 08/20/20 Status: Ordered Monurol 3 g oral granule for reconstitution See Instructions, TAKE 3 GM BY MOUTH ONCE EVERY 14 DAYS DIRECTED, # 2 each, 5 Refills, Maintenance, 12/04/21 10:11:00 EDT, [facility], 178, cm, 07/18/21 8:41:00 EDT, Height Start Date: 12/04/21 Status: Ordered Nizoral 2% Topical Topically, cream, TID and PRN, 0 Refills, Maintenance Start Date: 07/08/20 Status: Ordered Nizoral 2% topical shampoo See Instructions, Use shampoo and rinse twice a week for 8 weeks, # 120 mL, 1 Refills, Soft Stop, 10/22/20 3:53:00 EDT, [facility], Partial fill upon patient request if the prescription is for a schedule II opioid drug., Use shampoo and rins... Start Date: 10/22/20 Status: Ordered Nizoral 2% topical shampoo See Instructions, PRN as needed, Apply as shampoo 3 times a week for 8 weeks. Rinse, # 120 mL, 1 Refills, Soft Stop, 05/17/22 13:15:00 EST, Shampoo, [facility], Partial fill upon patient request if the prescription is for a schedule II opio... Start Date: 05/17/22 Status: Ordered Senna 8.6 mg oral tablet 2, tablet, By Mouth, 2 times a day, CRUSH. GIVE IN APPLESAUCE PUDDING OR YOGURT., # 100 tablet, Refills 2, Maintenance, 02/24/22 20:45:00 EST, Route to Pharmacy Electronically, [facility], 178, cm, 07/18/21 8:41:00 EDT, Height Start Date: 02/24/22 Status: Ordered Tecfidera 240 mg oral delayed [...] OR YOGURT., # 60 tablet, 4 Refills, [facility], 178, cm, 07/18/21 8:41:00 EDT, Height Start Date: 10/07/21 Status: Ordered XL depends XL depends, See Instructions, # 100 each, Refills 1, Tot. Refills 1, Maintenance, DX: Urine incontinence, 03/18/21 11:23:00 EST, Supply, 178, cm, 01/31/21 10:05:00 EST, Height Start Date: 03/18/21 Status: Ordered Problem List Condition Confirmation Course Effective Dates Status Health Status Informant Elevated ALT measurement Confirmed Active Chronic constipation Confirmed Active Lesion of colon Confirmed Active Decreased hearing Confirmed Active History of GI bleed Confirmed Active Hypercholesteremia Confirmed Active Hyperlipidemia Confirmed Active Hypertension Confirmed Active Major depression in remission Confirmed Active Neurogenic bladder Confirmed Active Relapsing remitting multiple sclerosis Confirmed Active SDH - Subdural hematoma Confirmed Active Seborrheic dermatitis Confirmed Active Social History Social History Type Response Smoking Status Former smoker, quit more than 30 days ago; Other: >1 year; entered on: 08/19/22 Sex Patient Care team information Care Team Personnel Name: Mary Hollins MA Position: [facility] RN Member Role: Primary Care Nurse Name: Emma Cross MD Position: [facility] Physician - Primary Care Member Role: PCP Address: Address: [address] [place] [address], [address] [place] [address]- Care Team Related Persons Name: KIRKPATRICK KORIN Address: home [address] [place] [address] Name: VERONA KIRKPATRICK Address: [address] [place] [address] Name: JOE DIAZ Address: home [address] [place] [address] Name: NA VINES Address: home [address] [place] [id number]
--- OUTSIDE RECORDS SUMMARY | 2023-08-30 08:49 | XMS_ITS | Continuity of Care Document ---
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 Start Date: 03/26/21 Status: Ordered Depends extra-large Depends extra-large, See Instructions, # 100 each, Refills 1, Tot. Refills 1, Maintenance, DX: Urine incontinence, 10/22/20 3:55:00 EDT, Supply, 178, cm, 10/18/20 13:16:00 EDT, Height Start Date: 10/22/20 Status: Ordered Diapers See Instructions, # 540 each, Refills 3, Tot. Refills 3, Maintenance, Size XL Dx:urine incontinence, 03/28/21 18:21:00 EST, Supply, 178, cm, 01/31/21 10:05:00 EST, Height Start Date: 03/28/21 Status: Ordered Dilantin 100 mg oral capsule, [...] Refills, Soft Stop, 10/08/20 16:27:00 EDT, Powder, [facility], Partial fill upon patient request if the prescription is for a schedule II opioid drug., 178, cm, 08/20/20 11:49:00 EDT, Height Start Date: 10/08/20 Status: Ordered gabapentin 600 mg oral tablet 1 tablet = 600 mg, By Mouth, 3 times a day, (Decreased dose), # 270 tablet, 1 Refills, Maintenance,01/31/21 11:38:00 EST, Tablet, [facility], Partial fill upon patient request if the prescription is for a schedule II opioid drug., 178, cm,... Start Date: 01/31/21 Stop Date: 07/30/21 Status: Ordered loratadine 10 mg oral tablet See Instructions, TAKE 1 TABLET BY MOUTH EVERY MORNING FOR ALLERGIES OR NASAL CONGESTION MAY CRUSH AND GIVE IN APPLESAUCE, PUDDING, OR YOGURT, # 90 tablet, Refills 1, Tot. Refills 1, 03/26/21 14:49:00 EST, Instructions Replace Required Details, Route... Start Date: 03/26/21 Status: Ordered Magnesium Citrate By Mouth, 10 ounzes on and Fridays, 0 Refills, Maintenance, 07/08/20 13:46:00 EDT, Partial fill upon patient request if the prescription is for a schedule II opioid drug. Start Date: 07/08/20 Status: Ordered magnesium citrate 8.85% oral liquid See Instructions, 10 ml By Mouth on Tuesdays and Fridays, # 300 mL, 1 Refills, Soft Stop, 03/26/21 14:49:00 EST, Liquid, [facility], Partial fill upon patient request if the prescription isfor a schedule II opioid drug., 10 ml By Mouth on... Start Date: 03/26/21 Status: Ordered metoprolol 50 mg oral tablet Refills 0, 02/02/21 15:09:00 EST, Partial fill upon patient request if the prescription is for a schedule II opioid drug. Start Date: 02/02/21 Status: Ordered metoprolol succinate 25 mg oral capsule, extended release 1 capsule = 25 mg, By Mouth, Daily, Discontinue tartrate form, # 90 capsule, 1 Refills, Maintenance, 11/29/20 17:31:00 EDT, ER Capsule, [facility], Partial fill upon patient request if [...] 1 Refills, Soft Stop, 10/22/20 3:53:00 EDT, [facility], Partial fill upon patient request if [...] Replace Required Details, Route to Pharmacy Electronically, [facility]... Start Date: 09/18/20 Status: Ordered Tecfidera [...] 2 times a day, for 30 days, Masspat reviewed, # 60 tablet, Refills 0, Tot. Refills 0, Acute 04/27/21 18:18:00 EST, 03/28/21 18:18:00 EST, Route to Pharmacy Electronically, [facility], Partial fill upon patient requ... Start Date: 03/28/21 Stop Date: 04/27/21 Status: Ordered Vitamin C 500 mg oral tablet 1 tablet, By Mouth, 2 times a day, CRUSH. GIVE IN APPLESAUCE, PUDDING, OR YOGURT., # 180 tablet, 1 Refills, Maintenance, 03/26/21 14:49:00 EST, [facility], 178, cm, 01/31/21 10:05:00 EST, Height [...]
--- OUTSIDE RECORDS SUMMARY | 2023-08-30 08:49 | XMS_ITS | Continuity of Care Document ---
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 Refills 0, Acute 06/29/21 17:06:00 EDT, 05/30/21 17:06:00 EDT, Route to Pharmacy Electronically, [facility], Partial fill upon patient request if the prescri... Start Date: 05/30/21 Stop Date: 06/29/21 Status: Ordered diazepam 5 mg oral tablet 5 mg, 1, tablet, By Mouth, 2 times a day, # 60 tablet, Refills 0, Tot. Refills 0, Acute 05/30/21 17:06:00 EDT, 05/02/21 17:05:00 EST, Route to Pharmacy Electronically, [id number], Partial fill upon patient request if the prescription is fo... Start Date: 05/02/21 Stop Date: 05/30/21 Status: Ordered Dilantin 100 mg oral capsule, [...] Refills, Soft Stop, 10/08/20 16:27:00 EDT, Powder, [facility], Partial fill upon patient request if the prescription is for a schedule II opioid drug., 178, cm, 08/20/20 11:49:00 EDT, Height Start Date: 10/08/20 Status: Ordered gabapentin 600 mg oral tablet 1 tablet = 600 mg, By Mouth, 3 times a day, (Decreased dose), # 270 tablet, 1 Refills, Maintenance,01/31/21 11:38:00 EST, Tablet, [facility], Partial fill upon patient request if [...] By Mouth... Start Date: 05/02/21 Status: Ordered metoprolol 50 mg oral tablet Refills 0, 02/02/21 15:09:00 EST, Partial fill upon patient request if the prescription is for a schedule II opioid drug. Start Date: 02/02/21 Status: Ordered metoprolol succinate 25 mg oral capsule, extended release 1 capsule = 25 mg, By Mouth, Daily, Discontinue tartrate form, # 90 capsule, 1 Refills, Maintenance, 11/29/20 17:31:00 EDT, ER Capsule, [facility], Partial fill upon patient request if [...] 1 Refills, Soft Stop, 10/22/20 3:53:00 EDT, [facility], Partial fill upon patient request if [...] Replace Required Details, Route to Pharmacy Electronically, [facility]... Start Date: 09/18/20 Status: Ordered Tecfidera 240 [...] tablet, 1 Refills, Maintenance, 03/26/21 14:49:00 EST, [facility], 178, cm, 01/31/21 10:05:00 EST, Height [...]
--- NOTE | 2023-08-30 09:56 | HO.ANESPROP2 ---
[facility], [facility] Active Problems Active Problems: All Active Problems Failure to thrive in adult (Acute) Chronic constipation (Acute) Weight loss (Acute) Dysphagia (Acute) Acute metabolic encephalopathy (Acute) Acute UTI (Acute) Urinary retention with incomplete bladder emptying (Acute) Neurogenic urinary bladder disorder (Acute) Medication refill (Acute) Urinary catheter ([place]) change required (Acute) Seizure (Acute) Peripheral neuropathy (Acute) Insomnia (Acute) Psychotic disorder (Acute) UTI (urinary tract infection) (Acute) Musculoskeletal arm pain (Acute) UTI (urinary tract infection) (Acute) Suprapubic catheter (Acute) Neuromyopathy (Acute) Hepatitis C (Acute) Multiple sclerosis (Acute) Past Medical History Medical History (Updated 08/30/23 @ 08:52 by Alyse Darden) History of substance abuse Former smoker GERD (gastroesophageal reflux disease) HTN (hypertension) GI bleed Hepatitis B Anemia Afib Failure to thrive in adult Seizures Constipation Neuromyopathy UTI (urinary tract infection) Suprapubic catheter Hepatitis C Multiple sclerosis Family History Family history of problems with anesthesia: No Surgical History Surgical History Hx of cystoscopy History of Problems with Anesthesia: No Social History Social History Household Members: Other Household Members Other:: [facility] Housing: Other Housing Other:: [facility] Do you presently have visiting nurse or other home services: Yes Unable to assess alcohol history related to: Unknown Alcohol intake: never Patient Tobacco Use Status: Former Tobacco user Tobacco use type: Cigarette Use of substances other than those prescribed or required for medical reasons: Yes Are you DNR?: No Advance Directives: Yes Advance Directives Information Provided: Yes Advance Directives on File: Yes Advance Directives Date on File: 04/16/20 service: No Current occupational status: disabled Meds Allergies Allergy/AdvReac Type Severity Reaction Status Date / Time bee pollen [BEE STINGS] Allergy Severe Anaphylaxis Verified 08/30/23 08:53 Home Medications ?Medication ?Instructions ?Recorded ?Confirmed ?Last Taken ?Type acetaminophen 325 mg tablet 650 mg PO Q8H PRN Fever Or Pain 04/14/20 08/30/23 Unknown History amitriptyline 100 mg tablet 100 mg PO BEDTIME 04/14/20 08/30/23 Unknown History sennosides 8.6 mg capsule (senna) 17.2 mg PO BID Constipation 04/14/20 08/30/23 Unknown History melatonin 5 mg tablet 5 mg PO BEDTIME 07/09/22 08/30/23 Unknown History polyethylene glycol 3350 17 17 g PO BID 07/09/22 08/30/23 Unknown History gram/dose oral powder alpha lipoic acid 600 mg tablet 600 mg PO BID 08/29/22 08/30/23 Unknown History atorvastatin 10 mg tablet 10 mg PO BEDTIME 08/29/22 08/30/23 Unknown History baclofen 10 mg tablet 40 mg PO TID 08/29/22 08/30/23 Unknown History epinephrine 0.3 mg/0.3 mL 0.3 mg IM Q15M PRN Anaphylaxis 08/29/22 08/30/23 Unknown History injection syringe magnesium hydroxide 400 mg/5 mL 30 ml PO DAILY PRN Constipation 08/29/22 08/30/23 Unknown History oral suspension (Milk of Magnesia) doxycycline monohydrate 100 mg 100 mg PO .COMPLEX PRN CATHETER 01/21/23 08/30/23 Unknown History tablet CHANGE fluticasone propionate 50 1 spray intranasal Q4H PRN 01/21/23 08/30/23 Unknown History mcg/actuation nasal Congestion spray,suspension gabapentin 400 mg capsule 400 mg PO TID 01/21/23 08/30/23 Unknown History famotidine 20 mg tablet 20 mg PO BID 07/15/23 08/30/23 Unknown History phenytoin 50 mg chewable tablet 100 mg PO DAILY 07/15/23 08/30/23 Unknown History Exam Height,Weight and Vital Signs: Height 6 ft Weight 63.503 kg Last Vital Signs Temp 98.5 F 08/30/23 08:47 Pulse 90 08/30/23 08:47 Resp 18 08/30/23 08:47 BP 119/83 08/30/23 08:47 Pulse Ox 99 08/30/23 08:47 O2 Del Method Room Air 08/30/23 08:47 Airway Mallampati Class: Patient Non-Cooperative TM Dist: >3cm Neck ROM: Full Heart: rrr Lungs: cta Assessment and Plan Assessment Anesthesia Assessment: Anesthesia Plan Discussed and Chart Reviewed Final Anesthetic Review Family History of Problems with Anesthesia: No History of Problems with Anesthesia: No NPO: No ASA Class: III Final Preanesthetic Review: No Changes in Pt Med Stat, Meds/Allgs Chart Reviewed and Consent Obtained/Reviewed Patient Risk: Intermediate Procedure Risk: Intermediate Anesthetic Plan Anesthetic Plan: MAC: Disposition: Standard PACU
[2023-08-30] MEDS: Lactated Ringers 1,000 ML 50 ML IVCONT ×2 (10:17→12:28)
--- NOTE | 2023-08-30 11:06 | P.OP_ITS ---
Operative Note Operative Note Date of Service: 08/30/23 Narrative: FLEXIBLE TRANSORAL UPPER GASTROINTESTINAL ENDOSCOPY WITH PERCUTANEOUS ENDOSCOPIC GASTROSTOMY TUBE PLACEMENT Pre-op diagnosis: Dysphagia, weight loss, multiple sclerosis Post-op diagnosis: Normal EGD status post successful PEG tube placement Endoscopist:Ld Myers MD and Dr Ovalle. Dr Ovalel assisted with endoscopic part of the procedure Anesthesia:?MAC UPPER ENDOSCOPY Consent: Indications for the procedure and potential complications of bleeding, perforation, reaction to medications and missed diagnosis were discussed with the patient and informed consent was obtained. Instrument: Olympus GIF H 190 mid size upper endoscope Monitoring: Vital signs and clinical assessment, continuous EKG monitoring, Pulse oximetry, Carbon Dioxide monitoring and blood pressure monitoring were done throughout the procedure. Procedure: The patient was placed in the left lateral decubitis position and pre-procedure medications were administered and a bite block was placed. The endoscope was inserted into the mouth and advanced under direct vision to the third part of duodenum. A careful inspection was made as the upper endoscope was withdrawn including a retroflexed examination of the proximal stomach; Findings and interventions are described below. Findings: Larynx: Normal Esophagus: GE junction at 42 cms. No esophagitis or Calhoun's Stomach: Normal gastric mucosa with J shaped stomach. Grade 2 flap valve on retroflexed examination of the cardia. Appropriate site for PEG tube placement was selected by transillumination and finger impression. Skin was prepped and draped in the usual sterile fashion. A 20 F Casey Taylor PEG tube was placed by pull technique. Duodenum: Normal bulb and descending duodenum Intervention: Biopsies as noted above Impression and Post Procedure Diagnosis: Endoscopy Findings: Plan: Pt will be admitted for overnight observation. Nutrition consult and initiate PEG tube feeding in the am. Above findings were reviewed with the patient and relevant handouts were given and the discharge area. FU appt scheduled with Dr Myers on 10/14/23 ADDENDUM: HOSPITAL COURSE: 42-year-old male with pertinent history of multiple sclerosis with cognitive and physical impairment, neurogenic bladder status post suprapubic catheter, mood disorder, essential hypertension, hepatitis-C, mixed hyperlipidemia admitted to [facility] for PEG tube placement by Gastroenterolog[facility]. Patient subsequently admitted to medical floor, treated with IV fluids, and started on G-tube feedings that he is tolerating well without nausea vomiting or high residuals therefore being discharged back to alf with home infusion company for continued feedings, all home medications has been transitioned through G-tube, Toprol-XL discontinued and replaced by metoprolol tartrate 25 mg b.i.d. Hypertension : BP stable , mild chronic tachycardia, continue metoprolol 25 mg b.i.d. via PEG tube hx mutiple sclerosis : Resume all home medications via PEG tube, continue supportive care
--- NOTE | 2023-08-30 13:00 | PM.IMHP ---
History of Present Illness Date of Service: 08/30/23 Attending physician on admission: Lakia Deleon Chief Complaint: Dec po intake 42-year-old male with pertinent history of multiple sclerosis with cognitive and physical impairment, neurogenic bladder status post suprapubic catheter, mood disorder, essential hypertension, hepatitis-C, mixed hyperlipidemia who reffered by dr gay to [facility]- for eleactive peg placement,patient nonverbal, hx was taken from Gi- patient had decreased po intake and losing weight, impending ftt-so reffered for Peg placement. now s/p peg placement,has some soarness and discomfort peg site area. labs from 08/21/23-cbc ,bmp seems fine Review of Systems Review of Systems: as above. [facility] Medical History History of substance abuse Former smoker GERD (gastroesophageal reflux disease) HTN (hypertension) GI bleed Hepatitis B Anemia Afib Failure to thrive in adult Seizures Constipation Neuromyopathy UTI (urinary tract infection) Suprapubic catheter Hepatitis C Multiple sclerosis Surgical History Hx of cystoscopy Social History Household Members: Other Household Members Other:: Nursing Home Housing: Other Housing Other:: Nursing Home Do you presently have visiting nurse or other home services: Yes Unable to assess alcohol history related to: Unknown Alcohol intake: never Comment: residential staff at bedside Patient Tobacco Use Status: Former Tobacco user Tobacco use type: Cigarette Advance Directives Date on File: 04/16/20 service: No Current occupational status: disabled Meds Allergies Allergy/AdvReac Type Severity Reaction Status Date / Time bee pollen [BEE STINGS] Allergy Severe Anaphylaxis Verified 08/30/23 08:53 Active Medications: Current Medications Acetaminophen (Acetaminophen 325 Mg Tablet) 650 mg PO Q6H PRN PRN Reason: Pain, Mild (Pain Scale 1-3), fever or headache Calcium Carbonate (Calcium Carbonate 750 Mg Tab.Chew) 750 mg PO Q4H PRN PRN Reason: Heartburn Lactated Ringer's (Lr) 1,000 mls @ 80 mls/hr IVCONT .[id number] LARA Last Admin: 08/30/23 12:28 Dose: 50 mls/hr Magnesium Hydroxide (Milk Of Magnesia 30 Ml Oral.Susp) 30 ml PO DAILY PRN PRN Reason: Constipation Melatonin (Melatonin 3 Mg Tablet) 6 mg PO BEDTIME PRN PRN Reason: Insomnia Sodium Chloride (0.9 % Sodium Chloride Flush 3 Ml Syringe) [facility]ations ?Medication ?Instructions ?Recorded ?Confirmed ?Last Taken ?Type acetaminophen 325 mg tablet 650 mg PO Q8H PRN Fever Or Pain 04/14/20 08/30/23 08/29/23 20:00 History amitriptyline 100 mg tablet 100 mg PO BEDTIME 04/14/20 08/30/23 08/29/23 20:00 History sennosides 8.6 mg capsule (senna) 17.2 mg PO BID Constipation 04/14/20 08/30/23 08/29/23 20:00 History melatonin 5 mg tablet 5 mg PO BEDTIME 07/09/22 08/30/23 08/29/23 20:00 History polyethylene glycol 3350 17 17 g PO BID 07/09/22 08/30/23 08/29/23 20:00 History gram/dose oral powder alpha lipoic acid 600 mg tablet 600 mg PO BID 08/29/22 08/30/23 08/29/23 20:00 History atorvastatin 10 mg tablet 10 mg PO BEDTIME 08/29/22 08/30/23 08/29/23 20:00 History baclofen 10 mg tablet 40 mg PO TID 08/29/22 08/30/23 08/29/23 20:00 History epinephrine 0.3 mg/0.3 mL 0.3 mg IM Q15M PRN Anaphylaxis 08/29/22 08/30/23 08/29/23 20:00 History injection syringe magnesium hydroxide 400 mg/5 mL 30 ml PO DAILY PRN Constipation 08/29/22 08/30/23 08/29/23 20:00 History oral suspension (Milk of Magnesia) doxycycline monohydrate 100 mg 100 mg PO .COMPLEX PRN CATHETER 01/21/23 08/30/23 08/29/23 20:00 History tablet CHANGE fluticasone propionate 50 1 spray intranasal Q4H PRN 01/21/23 08/30/23 08/29/23 20:00 History mcg/actuation nasal Congestion spray,suspension gabapentin 400 mg capsule 400 mg PO TID 01/21/23 08/30/23 08/29/23 20:00 History famotidine 20 mg tablet 20 mg PO BID 07/15/23 08/30/23 08/29/23 20:00 History phenytoin 50 mg chewable tablet 100 mg PO DAILY 07/15/23 08/30/23 08/29/23 20:00 History docusate sodium 100 mg capsule 100 mg PO BID 08/30/23 08/30/23 Unknown History (Colace) loratadine 10 mg tablet 10 mg PO DAILY 08/30/23 08/30/23 08/29/23 20:00 History sodium phosphates 19 gram-7 118 ml [place] DAILY PRN BM 08/30/23 08/30/23 Unknown History gram/118 mL enema (Fleet Enema) Physical Exam Vital Signs and Narrative: Vital Signs: Last Vital Signs Temp 97.3 F 08/30/23 12:02 Pulse 92 08/30/23 12:02 Resp 16 08/30/23 12:02 BP 126/82 08/30/23 12:02 Pulse Ox 100 08/30/23 12:02 O2 Del Method Room Air 08/30/23 12:02 O2 Flow Rate 2 08/30/23 11:10 BMI result Body Mass Index 20.9 Appearance: Alert,awke? cvs: rrr, [id number] . res: air entry fair,no rales or wheezing abd: soft,some soarness at peg site , bs present. ext pulses present , no cyanosis. neuro: nonfocal. Results Labs 08/31/23 07:15 08/31/23 07:15 Assessment and Plan (1) Failure to thrive in adult: Status: Acute (2) Weight loss: Status: Acute Plan 42-year-old male with pertinent history of multiple sclerosis with cognitive and physical impairment, neurogenic bladder status post suprapubic catheter, mood disorder, essential hypertension, hepatitis-C, mixed hyperlipidemia who was sent to the emergency department for elective peg placement,patient nonverbal, hx was taken from Gi- s/p peg placement FTT: s/p peg speech and swallow likley start feeding in am added labs for morning iv fluids and iv tylenol added for soarness consider nutrition specialist eval if needed . Gi following start home meds for ch illness once peg use available. htn: start metoprolol once start peg use . HLP:start statin hx mutiple sclerosis : supportive care [facility] residential , his hcp is his parent miss Orellana , he is full code , assessment an dplan coordiantion time spent 70 min Quality Stroke Does the patient have a stroke diagnosis?: No VTE Prior VTE?: No VTE Risk Level:: Medical - moderate - high VTE Device Contraindication: N/A - Device Ordered VTE Drug Contraindication: N/A - Med Ordered
--- NOTE | 2023-08-30 13:06 | PHA.MEDREC ---
Pharmacy Consult ? Medication Reconciliation Pharmacy has completed the medication reconciliation.
--- NOTE | 2023-08-30 13:37 | MHC.CLN ---
Addendum entered by Eda Biswas RD 08/30/23 14:22: SPOKE WITH NA FROM ASSISTED VIA PHONE. EXPLAINED THAT TUBE FEED WOULD BE CONTINUOUS X 24 HOURS TO ESTABLISH TOLERANCE. NOCTURNAL FEEDS OR BOLUS FEEDS COULD BE CONSIDERED IN THE FUTURE IF TOLERATED. PATIENT TAKES PUREE SOLIDS WITH HONEY THICK LIQUIDS AT ASSISTED. Original Note: NUTRITION CONSULT FOR PEG TUBE PLACED TODAY. WHEN ABLE, RECOMMEND OSMOLITE 1.5 AT MAX GOAL RATE 55 ML PER HOUR, FREE WATER FLUSHES 240 ML Q6 HOURS. PROVIDES 1980 KCALS (28.3 KCALS/KG), 82.8 G PROTEIN (1.18 G/KG), 1966 ML FREE WATER FROM FORMULA AND FLUSH (28.1 ML/KG). START OSMOLITE 1.5 AT 20 ML PER HOUR, INCREASE BY 10 ML EVERY 4 HOURS UNTIL MAX GOAL RATE OF 55 ML PER HOUR IS ACHIEVED. CHECK RESIDUALS EVERY 4 HOURS, HOLD FOR 2 HOURS IF >250 ML. FOLLOW FOR TUBE FEED TOLERANCE, RESIDUALS AND LYTES. SEE CLINICAL NUTRITION ASSESSMENT 08/30/23.
--- NOTE | 2023-08-30 15:51 | PM.GICN ---
History of Present Illness Data of Consult Service Date: 08/30/23 Requesting physician: Lakia Deleon Primary Care Provider: Unknown Physician HPI Reason for consult: FU of PEG tube placement 42 YM with multiple sclerosis with cognitive and physical impairment, neurogenic bladder status post suprapubic catheter, mood disorder, essential hypertension, hepatitis-C, mixed hyperlipidemia dysphagia, decreased PO intake, failure to thrive and wt loss of 30 lbs. Pt was admitted to [facility] [place] after having an uneventful EGD with PEG tube placement earlier today. Pt is wheel chair bound and non verbal. Pt's Mom is his HCP. Pt has been on a Pureed, honey thick diet for the past 2 yrs (which was being administered in a syringe). Wt decreased from 165 to 130 lbs 3rd swallowing evaluation at [facility] during last hospitalization - advised to continue same diet. Medications are crushed and given in apple sauce Pt has chronic constipation and has a bowel regimen: Miralax, colace and senna twice a day MOM if no BM in 2 days There is no reported family history of colon polyps, colon cancer or other GI malignancies. Review of Systems Review of Systems: Yes Unobtainable due to mental condition [facility] Past Medical History Medical History History of substance abuse Former smoker GERD (gastroesophageal reflux disease) HTN (hypertension) GI bleed Hepatitis B Anemia Afib Failure to thrive in adult Seizures Constipation Neuromyopathy UTI (urinary tract infection) Suprapubic catheter Hepatitis C Multiple sclerosis Surgical History Surgical History Hx of cystoscopy Social History Social History Household Members: Other Household Members Other:: [facility] Housing: Other Housing Other:: [facility] Do you presently have visiting nurse or other home services: Yes Unable to assess alcohol history related to: Unknown Alcohol intake: never Comment: correction staff at bedside Patient Tobacco Use Status: Former Tobacco user Tobacco use type: Cigarette Advance Directives Date on File: 04/16/20 service: No Current occupational status: disabled Meds Allergies Allergy/AdvReac Type Severity Reaction Status Date / Time bee pollen [BEE STINGS] Allergy Severe Anaphylaxis Verified 08/30/23 08:53 Active Medications: Current Medications Acetaminophen (Acetaminophen 325 Mg Tablet) 650 mg PO Q6H PRN PRN Reason: Pain, Mild (Pain Scale 1-3), fever or headache Calcium Carbonate (Calcium Carbonate 750 Mg Tab.Chew) 750 mg PO Q4H PRN PRN Reason: Heartburn Lactated Ringer's (Lr) 1,000 mls @ 80 mls/hr IVCONT .[id number] [facility] Last Infusion: 08/30/23 13:00 Dose: 80 mls/hr Magnesium Hydroxide (Milk Of Magnesia 30 Ml Oral.Susp) 30 ml PO DAILY PRN PRN Reason: Constipation Melatonin (Melatonin 3 Mg Tablet) 6 mg PO BEDTIME PRN PRN Reason: Insomnia Sodium Chloride (0.9 % Sodium Chloride Flush 3 Ml Syringe) 3 ml IVFLUSH QSHIFT [facility] Last Admin: 08/30/23 14:04 Dose: Not Given Home Medications ?Medication ?Instructions ?Recorded ?Confirmed ?Last Taken ?Type alpha lipoic acid 600 mg tablet 600 mg PO BID 08/29/22 08/30/23 08/29/23 20:00 History epinephrine 0.3 mg/0.3 mL 0.3 mg IM Q15M PRN Anaphylaxis 08/29/22 08/30/23 08/29/23 20:00 History injection syringe fluticasone propionate 50 1 spray intranasal Q4H PRN 01/21/23 08/30/23 08/29/23 20:00 History mcg/actuation nasal Congestion spray,suspension docusate sodium 100 mg capsule 100 mg PO BID 08/30/23 08/30/23 Unknown History (Colace) sodium phosphates 19 gram-7 118 ml [place] DAILY PRN BM 08/30/23 08/30/23 Unknown History gram/118 mL enema (Fleet Enema) Physical Exam Vital Signs: Vital Signs: Last Vital Signs Temp 97.2 F 08/30/23 15:39 Pulse 110 H 08/30/23 15:39 Resp 18 08/30/23 15:39 BP 149/86 H 08/30/23 15:39 Pulse Ox 97 08/30/23 15:39 O2 Del Method Room Air 08/30/23 15:39 O2 Flow Rate 2 08/30/23 11:10 BMI result Body Mass Index 20.9 Const: Other: Appearance: Alert. Contracted no distress Pt is wheel chair bound and non verbal. Eyes: Pupils equal, round and reactive to light. ENT: Pharynx normal. Neck: Normal inspection. Neck supple. No lymph nodes noted. No crepitus CVS: Normal heart rate and rhythm. Pulses normal. Normal S1 and S2 Respiratory: No respiratory distress. Breath sounds normal. No Wheezing. No rales Abdomen: Soft and nontender. No distention. good BS . PEG tube in place covered with a bandage. Skin: Skin warm and dry. Normal skin color. Normal skin turgor. Extremities: No lower extremity edema. Neurovascular intact to all extremities. No Lacerations. No Rash Neuro: Contracted, no distres Results Labs 08/31/23 07:15 08/31/23 07:15 Assessment and Plan (1) Dysphagia: Status: Acute (2) Failure to thrive in adult: Status: Acute (3) Multiple sclerosis: Status: Acute Plan 42 YM with multiple sclerosis with cognitive and physical impairment, neurogenic bladder status post suprapubic catheter, mood disorder, essential hypertension, hepatitis-C, mixed hyperlipidemia dysphagia, decreased PO intake, failure to thrive and wt loss of 30 lbs. Pt was admitted to [facility] [place] observation after having an uneventful EGD with PEG tube placement earlier today. Pt was seen by Eda Biswas RD earlier today: NUTRITION WHEN ABLE, RECOMMEND OSMOLITE 1.5 AT MAX GOAL RATE 55 ML PER HOUR, FREE WATER FLUSHES 240 ML Q6 HOURS. PROVIDES 1980 KCALS (28.3 KCALS/KG), 82.8 G PROTEIN (1.18 G/KG), 1966 ML FREE WATER FROM FORMULA AND FLUSH (28.1 ML/KG). START OSMOLITE 1.5 AT 20 ML PER HOUR, INCREASE BY 10 ML EVERY 4 HOURS UNTIL MAX GOAL RATE OF 55 ML PER HOUR IS ACHIEVED. CHECK RESIDUALS EVERY 4 HOURS, HOLD FOR 2 HOURS IF >250 ML. FOLLOW FOR TUBE FEED TOLERANCE, RESIDUALS AND LYTES. SEE CLINICAL NUTRITION ASSESSMENT 08/30/23. Addendum entered by Eda Biswas RD 08/30/23 14:22: SPOKE WITH NA FROM [facility] VIA PHONE. EXPLAINED THAT TUBE FEED WOULD BE CONTINUOUS X 24 HOURS TO ESTABLISH TOLERANCE. NOCTURNAL FEEDS OR BOLUS FEEDS COULD BE CONSIDERED IN THE FUTURE IF TOLERATED. PATIENT TAKES PUREE SOLIDS WITH HONEY THICK LIQUIDS AT [facility]. RECOMMENDATIONS: 1. Initiate PEG tube feedings in the am as per recommendations of the dietitian. 2. Pt can continue to be fed a Pureed, honey thick diet administered in a syringe. 3. Pt can be discharged to the correction once he is tolerating tube feeding at 55 ML /hour 4. Suzanne MOREJON to resume home care services per pt's director of casework 5. Pt discussed with Laxmi Jacinto RD and a Thermometer Production Worker from pt's tube feeding vendor will FU with the patient to adjust the tube feedings after pt reaches his ideal body weight 6. I will schedule a FU appt in the GI clinic in 4 to 6 weeks - scheduled 10/14/23 Procedures Date of Service Date of Service: 09/30/23
[2023-08-30] MEDS: Acetaminophen 1,000 MG/100 ML PIGGYBACK 400 MG IV (17:15)
[2023-08-30] MEDS: Metoprolol Tartrate 5 MG/5 ML VIAL IVPUSH (20:12)
[2023-08-30] MEDS: 0.9 % Sodium Chloride Flush 3 ML SYRINGE IVFLUSH (20:12)
--- NOTE | 2023-08-30 22:20 | PC.NURSE ---
At 1999 pt's HR was 136. [place] text to Dr. Galloway. 5 mg IV metoprolol ordered and administered at 2011 and monitor car operator added. Pt's HR at 2111 was 109 and BP 119/78. Will continue to monitor.
[2023-08-31] VITALS (8 sets, daily range): BP systolic 109–130; BP diastolic 64–80; PULSE 92–123; RESP 12–18; TEMP 36.2–36.9; O2SAT 94–99
[2023-08-31] MEDS: Lactated Ringers 1,000 ML 80 ML IVCONT (00:50)
--- NOTE | 2023-08-31 04:03 | HO.SKINPHOTO ---
Location: Right Buttock Category: Pressure Stage: II Length: Width: Depth: cm Location: Category: Stage: Length: Width: Depth: cm Location: Category: Stage: Length: Width: Depth: cm Location: Category: Stage: Length: Width: Depth: cm Location: Category: Stage: Length: Width: Depth: cm Location: Category: Stage: Length: Width: Depth: cm
[2023-08-31] MEDS: Acetaminophen 1,000 MG/100 ML PIGGYBACK 400 MG IV (04:09)
--- NOTE | 2023-08-31 05:55 | PC.NURSE ---
Pt's HR ranging from 110's-130's throughout the night, at approximately 0140 pt's HR went up to 141. Dr. Nilesh cevallos.
[2023-08-31 07:42] LABS: Hematocrit 36.9 % (42.0-52.0); Hemoglobin 12.4 g/dl (14.0-18.0)
[2023-08-31 07:59] LABS: Anion Gap 10 (12-20); Blood Urea Nitrogen 13 mg/dL (9-16); Calcium 9.6 mg/dL (8.4-10.2); Carbon Dioxide 27 mmol/L (22-29); Chloride 102 mmol/L (96-108); Creatinine Clr Calc Pharmacy 163.7; Estimated Glomerular Filt Rate > 60; Glucose Random 85 mg/dL (60-115); Potassium 4.1 mmol/L (3.3-5.1); Sodium 135 mmol/L (135-145)
--- NOTE | 2023-08-31 09:35 | MHC.CM.PN ---
Addendum entered by Nona Collins 08/31/23 13:27: CM SPOKE WITH [facility] NURSE BRITNEY ([phone]). NO PREFERENCE TO HOME INFUSION COMPANY FOR ENTERAL FEEDS, [facility] PER [facility] NURSE, NURSE EDUCATOR WILL BE OVERSEEING THE START UP SO SHE NEEDS TO COORDINATE FOR WHEN HE DC'S. Original Note: ARANA DELIVERED TO [facility] MGR NA PT UNABLE TO PARTICIPATE. YELLOW COPY LEFT AT BEDSIDE PER REQUEST. PT L[facility] IN [facility] IN [place]. PT DEPENDENT ON STAFF FOR CARE. USES A W/[employer] AND [employer] FOR TRANSFERS. PT IS ACTIVE WITH [facility]. COPY OF HCP REQUESTED FROM [facility]. PCP DR. MARIANO MATA DP: PT WILL RETURN TO [facility] ON DC WITH [facility]. CM AWAITING [facility] NURSE TO RETURN CALL TO ENSURE THEY HAVE MADE ARRANGEMENTS FOR NEW FEEDING TUBE. PT WILL NEED [facility] AND ENTERAL FEED COMPANY SET UP/COORDINATED BEFORE DC. RETURN REFERRAL SENT TO [facility]. PT WILL NEED BLS TRANSPORT HOME
--- NOTE | 2023-08-31 10:11 | MHC.CLN ---
RE: CONSULT S/P PEG TUBE PLACEMENT REVIEWED LABS DISCUSSED WITH MD RECOMMEND OSMOLITE 1.5 AT MAX GOAL RATE 55 ML PER HOUR WITH 240ML FREE WATER FLUSHES Q6 HOURS PROVIDES 1980 KCALS (28.3 KCALS/KG), 82.8G PROTEIN (1.18 G/KG), 1966 TOTAL ML FREE WATER FROM FORMULA AND FLUSH (28.1 ML/KG) START OSMOLITE 1.5 AT 20 ML PER HOUR, INCREASE BY 10 ML EVERY 4 HOURS UNTIL MAX GOAL RATE OF 55 ML PER HOUR IS ACHIEVED CHECK RESIDUALS EVERY 4 HOURS, HOLD FOR 2 HOURS IF >250 ML MONITOR FOR TUBE FEED TOLERANCE, RESIDUALS AND LYTES EXPLAINED TO [facility] LIASION THAT TUBE FEED WOULD BE CONTINUOUS X 24 HOURS TO ESTABLISH TOLERANCE NOCTURNAL FEEDS OR BOLUS FEEDS COULD BE CONSIDERED IN THE FUTURE IF TOLERATED
[2023-08-31] MEDS: Metoprolol Tartrate 25 MG TABLET G-TUBE ×2 (11:59→20:05)
[2023-08-31] MEDS: 0.9 % Sodium Chloride Flush 3 ML SYRINGE IVFLUSH ×2 (14:20→20:06)
[2023-08-31] MEDS: Baclofen 20 MG TABLET 40 MG G-TUBE ×2 (14:20→20:05)
[2023-08-31] MEDS: Gabapentin 400 MG CAPSULE G-TUBE ×2 (14:20→20:05)
--- NOTE | 2023-08-31 15:32 | P.PNIM_ITS ---
Subjective Subjective Date of Service: 08/31/23 Interval History: Unable to obtain history due to underlying multiple sclerosis with severe cognitive and physical impairment, no overnight events, patient NPO receiving IV fluids. Review of Systems Unable to obtain due to mental status. Physical Exam 2 Vital Signs: Vital Signs: Last Vital Signs Temp 97.5 F 08/31/23 12:00 Pulse 92 08/31/23 12:00 Resp 18 08/31/23 12:00 BP 118/75 08/31/23 12:00 Pulse Ox 99 08/31/23 12:00 O2 Del Method Room Air 08/31/23 12:00 O2 Flow Rate 2 08/30/23 11:10 BMI result Body Mass Index 20.9 Const: Other: Constitutional:?Alert, in no acute distress. Neck supple Respiratory:?Clear to auscultation bilaterally. No wheezing, rales, or rhonchi. Cardiovascular:?S1, S2 regular, tachycardic. . Gastrointestinal:?Abdomen soft, G-tube in place,normal bowel sounds. Neurologic:?Rhythmically nodding head. contracted right arm ,Incapable of moving extremties. Extremities:?No edema. Objective Data Active Medications Acetaminophen (Acetaminophen 325 Mg Tablet) 650 mg PO Q6H PRN PRN Reason: Pain, Mild (Pain Scale 1-3), fever or headache Acetaminophen (Acetaminophen 325 Mg Tablet) 650 mg G-TUBE Q8H PRN PRN Reason: Fever Or Pain Amitriptyline HCl (Amitriptyline Hcl 50 Mg Tablet) 100 mg G-TUBE BEDTIME LARA Atorvastatin Calcium (Atorvastatin Calcium 10 Mg Tablet) 10 mg G-TUBE BEDTIME LARA Baclofen (Baclofen 20 Mg Tablet) 40 mg G-TUBE TID [facility] Last Admin: 08/31/23 14:20 Dose: 40 mg Documented By: DABA Calcium Carbonate (Calcium Carbonate 750 Mg Tab.Chew) 750 mg PO Q4H PRN PRN Reason: Heartburn Docusate Sodium (Docusate Sodium 100 Mg Capsule) 100 mg PO BID LARA Famotidine (Famotidine 20 Mg Tablet) 20 mg G-TUBE BID [facility] Fluticasone Propionate (Fluticasone Propionate Nasal 16 Gm [place]) 1 spray NOSTRIL-B Q4H PRN PRN Reason: Congestion Gabapentin (Gabapentin 400 Mg Capsule) 400 mg G-TUBE TID [facility] Last Admin: 08/31/23 14:20 Dose: 400 mg Documented By: QUINTEN Acetaminophen (Ofirmev) 1,000 mg in 100 mls @ 400 mls/hr IV Q6H PRN PRN Reason: Pain, Mild (Pain Scale 1-3) Last Infusion: 08/31/23 04:25 Dose: Infused Documented By: RYAN Magnesium Hydroxide (Milk Of Magnesia 30 Ml Oral.Susp) 30 ml PO DAILY PRN PRN Reason: Constipation Melatonin (Melatonin 3 Mg Tablet) 6 mg PO BEDTIME PRN PRN Reason: Insomnia Metoprolol Tartrate (Metoprolol Tartrate 25 Mg Tablet) 25 mg G-TUBE BID LARA; Protocol Last Admin: 08/31/23 11:59 Dose: 25 mg Documented By: QUINTEN Phenytoin (Phenytoin Chewable 50 Mg Tab.Chew) 100 mg PO DAILY LARA Polyethylene Glycol (Polyethylene Glycol 3350 17 Gm Powd.Pack) 17 gm G-TUBE BID LARA Senna (Sennosides 8.6 Mg Tablet) 17.2 mg PO BID LARA Sodium Biphosphate/Sodium Phosphate (Sodium Phosphate,[place]-Dibasic 133 Ml Enema) 118 ml [place] DAILY PRN PRN Reason: BM Sodium Chloride (0.9 % Sodium Chloride Flush 3 Ml Syringe) 3 ml IVFLUSH QSHIFT LARA Last Admin: 08/31/23 14:20 Dose: 3 ml Documented By: QUINTEN Labs 08/31/23 07:15 08/31/23 07:15 Labs: Laboratory Results - last 24 hr 08/31/23 07:15 Anion Gap 10 L Estim Creat Clear Calc 163.7 Estimated GFR > 60 Random Glucose 85 Calcium 9.6 Assessment and Plan (1) Failure to thrive in adult: Status: Acute Plan 42-year-old male with pertinent history of multiple sclerosis with cognitive and physical impairment, neurogenic bladder status post suprapubic catheter, mood disorder, essential hypertension, hepatitis-C, mixed hyperlipidemia who was sent to the emergency department for elective peg placement,patient nonverbal, hx was taken from Gi- s/p peg placement FTT: s/p peg placement by GI Consulted assistant product manager for G-tube feedings , DC IV fluids Outpatient follow-up with GI upon discharge Hypertension : Place on metoprolol 25 mg b.i.d. via PEG tube HLP: Resume statin via peg hx mutiple sclerosis : Resume all home medications via PEG tube, continue supportive care Full code Lovenox Patient need continued inpatient hospitalization for tolerance of G-tube feedings . Quality Stroke Does the patient have a stroke diagnosis?: No VTE Prior VTE?: No VTE Risk Level:: Medical - moderate - high VTE Device Contraindication: N/A - Device Ordered VTE Drug Contraindication: N/A - Med Ordered
[2023-08-31] MEDS: Enoxaparin Sodium 40 MG/0.4 ML SYRINGE SUBCUT (16:58)
[2023-08-31] MEDS: Famotidine 20 MG TABLET G-TUBE (20:05)
[2023-08-31] MEDS: Atorvastatin Calcium 10 MG TABLET G-TUBE (20:05)
[2023-08-31] MEDS: Amitriptyline HCl 50 MG TABLET 100 MG G-TUBE (20:06)
[2023-09-01 03:30] VITALS: BP 112/65; PULSE 127; RESP 18; TEMP 36.2; O2SAT 96
[2023-09-01 07:14] VITALS: BP 108/71; PULSE 115; RESP 16; TEMP 36.3; O2SAT 96
[2023-09-01] MEDS: Famotidine 20 MG TABLET G-TUBE (07:32)
[2023-09-01] MEDS: Phenytoin Chewable 50 MG TAB.CHEW 100 MG PO (07:32)
[2023-09-01] MEDS: Baclofen 20 MG TABLET 40 MG G-TUBE ×2 (07:32→14:19)
[2023-09-01] MEDS: Metoprolol Tartrate 25 MG TABLET G-TUBE (07:32)
[2023-09-01] MEDS: Sennosides 8.6 MG TABLET 17.2 MG PO (07:32)
[2023-09-01] MEDS: Gabapentin 400 MG CAPSULE G-TUBE ×2 (07:32→14:19)
[2023-09-01] MEDS: 0.9 % Sodium Chloride Flush 3 ML SYRINGE IVFLUSH ×2 (07:33→14:21)
[2023-09-01 08:00] VITALS: O2SAT 96
--- NOTE | 2023-09-01 11:07 | MHC.CLN ---
F/U PATIENT TOLERATING CURRENT TUBE FEEDING AT MAX GOAL RATE: OSMOLITE 1.5 AT MAX GOAL RATE 55 ML PER HOUR WITH 240ML FREE WATER FLUSHES Q6 HOURS PROVIDES 1980 KCALS (28.3 KCALS/KG), 82.8G PROTEIN (1.18 G/KG), 1966 TOTAL ML FREE WATER FROM FORMULA AND FLUSH (28.1 ML/KG) INCREASED PROTEIN NEEDS WITH STAGE 2 PRESSURE INJURY TO RIGHT BUTTOCK. RECOMMEND ADD 1 PACKET PROSOURCE FOR ADDITIONAL 15 G PROTEIN, 60 KCALS. TOTAL PROTEIN FROM TUBE FEEDING AND PROSOURCE=97.8 G (1.4 G/KG). MONITOR FOR WOUND HEALING, TUBE FEED TOLERANCE, RESIDUALS AND LYTES.
[2023-09-01 12:00] VITALS: BP 123/79; PULSE 99; RESP 12; TEMP 36.6; O2SAT 99
--- NOTE | 2023-09-01 14:44 | MHC.CM.PN ---
Pt is medically cleared for discharge back to his [facility] with new home enteral feeds through [facility]. Pt will transport home via [facility] home health attendant Amy updated and in agreement with plan.
--- NOTE | 2023-09-01 14:49 | P.DS_ITS ---
DS: Providers Provider Date of Service: 09/01/23 Date of admission: 08/30/23 08:30 Primary care physician: Emma Gay MD Consults: 08/30/23 12:00 Consult to Wound Care Routine Reason for consultation: redness to buttocks, stage II to right buttocks DS: Diagnosis Discharge Diagnosis (1) Failure to thrive in adult: Status: Acute DS: Summary Hospital Course Hospital Course: History of presenting illness: Date of Service: 08/30/23 Attending physician on admission: Lakia Deleon Chief Complaint: Dec po intake 42-year-old male with pertinent history of multiple sclerosis with cognitive and physical impairment, neurogenic bladder status post suprapubic catheter, mood disorder, essential hypertension, hepatitis-C, mixed hyperlipidemia who reffered by dr gay to [facility]- for eleactive peg placement,patient nonverbal, hx was taken from Gi- patient had decreased po intake and losing weight, impending ftt- so reffered for Peg placement. now s/p peg placement,has some soarness and discomfort peg site area. labs from 08/21/23-cbc ,bmp seems fine. Hospital course: 42-year-old male with pertinent history of multiple sclerosis with cognitive and physical impairment, neurogenic bladder status post suprapubic catheter, mood disorder, essential hypertension, hepatitis-C, mixed hyperlipidemia admitted to [facility] for PEG tube placement by Gastroenterology patient subsequently admitted to medical floor, treated with IV fluids, and started on G-tube feedings that he is tolerating well without nausea vomiting or high residuals therefore being discharged back to residential with home infusion company for continued feedings, all home medications has been transitioned through G-tube, Toprol-XL discontinued and replaced by metoprolol tartrate 25 mg b.i.d. Hypertension : BP stable , mild chronic tachycardia, continue metoprolol 25 mg b.i.d. via PEG tube hx mutiple sclerosis : Resume all home medications via PEG tube, continue supportive care Time Attestation Discharge Coordination Time (in mins): 38 Quality: Safe Use of Opioids Does Pt have an Active Cancer Diagnosis on the Problem List?: No Quality: Stroke Does the patient have a stroke diagnosis?: No Physical Exam Vital Signs: Vital Signs: Last Vital Signs Temp 97.8 F 09/01/23 12:00 Pulse 99 09/01/23 12:00 Resp 12 09/01/23 12:00 BP 123/79 09/01/23 12:00 Pulse Ox 99 09/01/23 12:00 O2 Del Method Room Air 09/01/23 12:00 O2 Flow Rate 2 08/30/23 11:10 BMI result Body Mass Index 20.9 Const: Other: Constitutional:?Alert, in no acute distress. Neck supple Respiratory:?Clear to auscultation bilaterally. No wheezing, rales, or rhonchi. Cardiovascular:?S1, S2 regular, tachycardic. . Gastrointestinal:?Abdomen soft, G-tube in place, no surrounding drainage, normal bowel sounds. Neurologic:?Rhythmically nodding head.Incapable of moving extremties. Extremities:?No edema. DS: Data Data Completed and Pending Completed studies during hospitalization [Text1]: Procedures Insertion of Infusion Device into Upper Vein, Percutaneous Approach (08/29/22) Discharge Plan Discharge Anticipated Discharge Date/Time: 09/01/23 14:32 Patient Disposition: Home Health Service Discharge Diagnosis: Failure to thrive Dysphagia Referrals: Emma Gay MD [Primary Care Provider] - 1 Week Discharge Medications: New metoprolol tartrate 25 mg Tablet 25 mg G-tube BID Qty: 60 0RF Protocol: Hold for SBP/HR < HOLD for SBP < : 90 HOLD for HR < : 60 Continued epinephrine 0.3 mg/0.3 mL Syringe 0.3 mg IM Q15M PRN (Reason: Anaphylaxis) Rx Instructions: for 2 doses alpha lipoic acid 600 mg Tablet 600 mg PO BID fluticasone propionate 50 mcg/actuation Reynolds,Suspension 1 spray INTRANASAL Q4H PRN (Reason: Congestion) Rx Instructions: administer into each nostril bisacodyl [Dulcolax (bisacodyl)] 10 mg suppository 10 mg IL DAILY PRN (Reason: constipation) Qty: 12 0RF Rx Instructions: If no BM in 3 days. Fleet Enema 19-7 gram/118 mL Enema 118 ml IL DAILY PRN (Reason: BM) Rx Instructions: If no BM in 3 days docusate sodium [Colace] 100 mg Capsule 100 mg PO BID Changed acetaminophen 325 mg Tablet 650 mg feeding tube Q8H PRN (Reason: Fever Or Pain) Qty: 30 0RF atorvastatin 10 mg tablet 10 mg feeding tube BEDTIME Qty: 30 0RF gabapentin 400 mg capsule 400 mg feeding tube TID Qty: 30 0RF doxycycline monohydrate 100 mg tablet 100 mg feeding tube DAILY PRN (Reason: CATHETER CHANGE) Qty: 30 0RF Rx Instructions: 100 mg PO On day of catheter change; 1 tab before cath change and 1 tab after cath change; methenamine hippurate 1 gram tablet 1 g feeding tube DAILY 90 Days Qty: 90 3RF famotidine 20 mg Tablet 20 mg feeding tube BID Qty: 30 0RF magnesium hydroxide [Milk of Magnesia] 400 mg/5 mL Suspension 30 ml feeding tube DAILY PRN (Reason: Constipation) Qty: 355 0RF ascorbic acid (vitamin C) [Vitamin C] 500 mg tablet 500 mg feeding tube BID 90 Days Qty: 180 1RF baclofen 10 mg tablet 40 mg feeding tube TID Qty: 30 0RF polyethylene glycol 3350 17 gram/dose powder 17 g feeding tube BID Qty: 238 0RF amitriptyline 100 mg Tablet 100 mg feeding tube BEDTIME Qty: 30 0RF loratadine 10 mg tablet 10 mg feeding tube DAILY Qty: 30 0RF senna 8.6 mg Capsule 17.2 mg feeding tube BID Qty: 30 0RF melatonin 5 mg tablet 5 mg feeding tube BEDTIME Qty: 30 0RF phenytoin 50 mg tablet,chewable 100 mg G-tube DAILY Qty: 30 0RF Discontinued metoprolol succinate 25 mg tablet extended release 24 hr 25 mg PO DAILY Qty: 30 2RF Discharge Orders: Discharge Order (Routine); Ordered 09/01/23 Ordered By: Elvin Garcia Diet: g tube feedings Activity on Discharge: As tolerated Stand Alone Forms: Patient Portal Discharge page Print Language: Bahraini Care Plan Goals: G-tube placed continue feedings as directed All medications to be administered through G-tube Alpha lipoic acid and Colace can be administered through G-tube Health Concerns: Multiple sclerosis/neurogenic bladder/mood disorder/hypertension continue all home medications Plan of Treatment: Outpatient follow-up with primary care physician Assessment: As above
--- NOTE | 2023-09-01 15:03 | MHC.CM.PN ---
Addendum entered by Helena Steven 09/01/23 15:05: Pts mother/POA Renya was updated on pts discharge. Original Note: Pt is medically cleared for discharge back to his senior living with [facility] nursing infusion services for enteral feedings. Pt will transport via BLS/[facility]. it operations manager Amy updated.
[2023-09-01 16:00] VITALS: BP 110/76; PULSE 114; RESP 18; TEMP 36.5; O2SAT 99
== END 2023-09-01 17:34 | disposition home health service (06) ==
LOC: HO.SSSA 08:47 → HO.S3 11:20
PROVIDERS: Internal Medicine; Admitting Provider Internal Medicine Gastroenterology; PCP Internal Medicine; Visit Provider Hospitalist
PROC: 0DJ08ZZ Inspection of Upper Intestinal Tract, Via Natural or Artificial Opening Endoscopic (ICD-10-PCS; CPT 43235; principal; 2023-08-30 10:00)
PROC: 0DH63UZ Insertion of Feeding Device into Stomach, Percutaneous Approach (ICD-10-PCS; CPT 43246; 2023-08-30 10:00)
DX: R62.7 Adult failure to thrive (principal); Z68.20 Body mass index [BMI] 20.0-20.9, adult; R13.10 Dysphagia, unspecified; R63.4 Abnormal weight loss; R00.0 Tachycardia, unspecified; G35 Multiple sclerosis; G31.84 Mild cognitive impairment of uncertain or unknown etiology; N31.9 Neuromuscular dysfunction of bladder, unspecified; I10 Essential (primary) hypertension; B19.20 Unspecified viral hepatitis C without hepatic coma; E78.2 Mixed hyperlipidemia
CPT/HCPCS: 43246; 36415; 80048; 85014; 85018; 93005; 96361; 96365; 96366; 96372; 96375; J0131; J0690; J1650; J1805; J2250; J2704; J7120

== ENCOUNTER 2023-08-30 08:30 | Outpatient (BNV) | payer OTHER, SELFPAY | END 2023-08-30 20:04 | PROVIDERS: Admitting Provider Internal Medicine Gastroenterology; PCP Internal Medicine; Visit Provider Internal Medicine Cardiovascular Disease | DX: R00.0 Tachycardia, unspecified (principal); R94.31 Abnormal electrocardiogram [ECG] [EKG] | CPT/HCPCS: 93010 ==

== ENCOUNTER → 2023-08-30 08:30 | Outpatient (BNV) | payer OTHER, SELFPAY | PROVIDERS: Admitting Provider Internal Medicine Gastroenterology; PCP Internal Medicine; Visit Provider Internal Medicine Gastroenterology | DX: R13.10 Dysphagia, unspecified (principal); R63.4 Abnormal weight loss; Z93.1 Gastrostomy status; G35 Multiple sclerosis | CPT/HCPCS: 43235 ==

== ENCOUNTER → 2023-08-30 08:30 | Outpatient (BNV) | payer OTHER, SELFPAY | PROVIDERS: Admitting Provider Internal Medicine Gastroenterology; PCP Internal Medicine; Visit Provider Internal Medicine Gastroenterology | DX: R13.10 Dysphagia, unspecified (principal); R62.7 Adult failure to thrive; G35 Multiple sclerosis | CPT/HCPCS: 99231 ==

== ENCOUNTER → 2023-08-30 08:30 | Outpatient (BNV) | payer OTHER, SELFPAY | PROVIDERS: Admitting Provider Internal Medicine Gastroenterology; PCP Internal Medicine; Visit Provider Internal Medicine | DX: R62.7 Adult failure to thrive (principal); R63.4 Abnormal weight loss | CPT/HCPCS: 99223; 99232; 99239 ==

== ENCOUNTER 2023-10-12 14:41 | Outpatient (REF) | payer OTHER, SELFPAY ==
[2023-10-12 15:25] LABS: Appearance Urine Clear; Color Urine Yellow; Glucose Urine UA Negative (Negative); Leukocyte Esterase Urine Large (3+) (Negative); Nitrite Urine Negative (Negative); Specific Gravity - Urine 1.015 (1.005-1.025); UMIC TRIGGER UA YES; Urine Blood Negative (Negative); Urine Ketones Negative (Negative); Urine Protein Trace mg/dL (Neg-Trace)
[2023-10-12 15:32] LABS: Bacteria Urine 2+ (None Seen); Hyaline Casts Urine 0-2 /LPF (0-2); RBC Urine 0-2 /HPF (0-2); Squamous Epithelial Cell Urine 0-2 /HPF (0-2); WBC Urine 21-50 /HPF (0-5)
== END 2023-10-12 14:42 | disposition home or self-care (01) ==
LOC: HO.LNP 14:41
PROVIDERS: Visit Provider Urology
DX: N39.0 Urinary tract infection, site not specified (principal); R33.9 Retention of urine, unspecified; N31.9 Neuromuscular dysfunction of bladder, unspecified
CPT/HCPCS: 81001; 87086

== ENCOUNTER 2023-10-14 14:14 | Outpatient (AMB) | payer OTHER, SELFPAY ==
--- NOTE | 2023-10-14 14:23 | A.OFFVIS_ITS ---
Vital Signs 10/14/23 14:25 Height 6 ft 1 in Weight 151 lb BMI 19.9 BP 118/80 Blood Pressure Location Lt brachial Position Sitting Pulse 95 Intake Visit Reasons: ED follow up Intake Note: Patient new consult after hospitalization Patient manager etl wanted to asked you for a special diet . Him Manager Required: No Accompanied by: Family/Other Allergies bee pollen [BEE STINGS] Allergy (Severe, Verified 10/14/23 14:22) Anaphylaxis Medication List - Last Reconciled 10/14/23 by Raj Myers MD acetaminophen 650 mg (2 x 325 mg) feeding tube Q8H PRN alpha lipoic acid 600 mg PO BID amitriptyline 100 mg feeding tube BEDTIME ascorbic acid (vitamin C) (Vitamin C) 500 mg feeding tube BID 90 days atorvastatin 10 mg feeding tube BEDTIME baclofen 40 mg (4 x 10 mg) feeding tube TID bisacodyl (Dulcolax (bisacodyl)) 10 mg NM DAILY PRN docusate sodium (Colace) 100 mg PO BID doxycycline monohydrate 100 mg feeding tube DAILY PRN epinephrine 0.3 mg IM Q15M PRN famotidine 20 mg feeding tube BID fluticasone propionate 50 mcg/actuation 1 spray intranasal Q4H PRN gabapentin 400 mg feeding tube TID loratadine 10 mg feeding tube DAILY magnesium hydroxide (Milk of Magnesia) 30 mL feeding tube DAILY PRN melatonin 5 mg feeding tube BEDTIME methenamine hippurate 1 g feeding tube DAILY 90 days metoprolol tartrate 25 mg See Protocol G-tube BID phenytoin 100 mg (2 x 50 mg) G-tube DAILY polyethylene glycol 3350 17 grams feeding tube BID sennosides (senna) 17.2 mg (2 x 8.6 mg) feeding tube BID sodium phosphates 19-7 gram/118 mL (Fleet Enema) 118 mL NM DAILY PRN HPI HPI ED follow up: Details: GI clinic visit for this 42 YM with multiple sclerosis with cognitive and physical impairment, neurogenic bladder status post suprapubic catheter, mood disorder, essential hypertension, hepatitis-C, mixed hyperlipidemia for FU after PEG tube placement on 08/30/23. TODAY'S VISIT: Patient manager etl wanted to asked you for a special diet . Wt improved from 130 to 151 lbs PEG tube feedings are going well - Osmolite 1.5 Formula 1 container (237 ml) 5 times a day bolus feeding - 6 am, 10 am, 2 pm, 7 pm and 10 pm Tube feeding orders per Yady Chase, RDN: EEN 1647 kcal for wt maintainence at 145 lbs (wt is at low end of ideal for ht and age) EEN for wt gain 1976 - 2147 Kcal - current tube feedings providing 1980 kcal/day Flush with 30 ml of water before and after each feeding Flush 120 ml of water prior to each feeding at 8 am, 12 pm and 5 pm. At least 2 hour intervals before and after meals Check residual before each feedings and hold for residuals > 50 cc - recheck after 1 hour Pt is also given a Pureed diet with honey thick liquids in addition to his tube feedings at 8 am, 12 noon and 5 pm Free water 1745 ml via G tube and 240 ml (8 oz) by mouth Pt is wheel chair bound and non verbal. Pt's Mom is his HCP. He is accompanied by Lexie, client operations manager at the [facility] (moved there in June,) who provided the history Pt is on a Pureed, honey thick diet for the past 2 yrs. Wt decreased from 165 to 130 lbs 3rd swallowing evaluation at [facility] - advised to continue same diet. Since last hospitalization Medications are crushed and given in apple sauce Pt has chronic constipation and has a bowel regimen: Miralax, colace and senna twice a day MOM if no BM in 2 days Patient denies major cardiac or pulmonary problems, loud snoring or sleep apnea Recent labs by PCP were normal. Denies being on chronic anticoagulation. Patient denies known family history of colon polyps, colon cancer or other GI malignancies. Pt was hospitalized at [facility] from 08/30/23 to 09/01/23: Hospital Course: 42-year-old male with pertinent history of multiple sclerosis with cognitive and physical impairment, neurogenic bladder status post suprapubic catheter, mood disorder, essential hypertension, hepatitis-C, mixed hyperlipidemia admitted to [facility] for PEG tube placement by GastroenterologY. Patient subsequently admitted to medical floor, treated with IV fluids, and started on G-tube feedings that he is tolerating well without nausea vomiting or high residuals therefore being discharged back to [facility] with home infusion company for continued feedings, all home medications has been transitioned through G-tube, Toprol-XL discontinued and replaced by metoprolol tartrate 25 mg b.i.d. Hypertension : BP stable , mild chronic tachycardia, continue metoprolol 25 mg b.i.d. via PEG tube hx mutiple sclerosis : Resume all home medications via PEG tube, continue supportive care Pt was hospitalizecd at [facility] from 01/21 to 01/24/23 for lethargy and confusion: 42-year-old male sent to the emergency department from [facility]. Staff at [facility] noticed change in order from suprapubic catheter. Unable to obtain any history from the patient. Does have a history of frequent UTI. The hand ornament maker at [facility] also concern for choking/coughing with p.o. intake. Patient is on a pureed diet with thickened liquids at baseline. Unable to obtain review of systems. In the emergency department, urine was concerning for UTI and patient was initiated on empiric IV antibiotics. hospital course: Patient was admitted for acute metabolic encephalopathy due to suprapubic catheter associated urinary tract infection. He was initially treated with IV ceftriaxone and mental status returned to baseline. Culture grew Serratia that was resistant to ceftriaxone therefore, discharge he will be given 7 more days of p.o. Bactrim. Patient is back to baseline. For his dysphagia he was seen by MATE CHIEF who recommended pureed solids and honey thick liquids. For history of MS use continue baclofen. For her hyperlipidemia is continue on statin. Patient is now medically stable be discharged home. LABS IN [facility] : Reviewed IMAGING STUDIES: August, ABD CT SCAN SHOWED: 1. No hydronephrosis is present. 2. No renal calculi are seen. 3. Suprapubic cystostomy tube in place. 4. Large stool burden in the rectosigmoid. 5. Incidental note made of benign hepatic cysts, bibasilar atelectasis and other findings described above. ENDOSCOPIC STUDIES: EGD with uneventful PEG tube placement on 08/30/23 [facility] Medical History History of substance abuse Former smoker GERD (gastroesophageal reflux disease) HTN (hypertension) GI bleed Hepatitis B Anemia Afib Failure to thrive in adult Seizures Constipation Neuromyopathy UTI (urinary tract infection) Suprapubic catheter Hepatitis C Multiple sclerosis Surgical History Hx of cystoscopy Social History Household Members: Other Household Members Other:: [facility] Housing: Other Housing Other:: [facility] Do you presently have visiting nurse or other home services: Yes Unable to assess alcohol history related to: Unknown Alcohol intake: never Comment: [facility] staff at bedside Patient Tobacco Use Status: Former Tobacco user Tobacco use type: Cigarette Advance Directives Date on File: 04/16/20 service: No Current occupational status: disabled Review of Systems Const Unobtainable due to mental condition Reports weight gain Physical Exam Vital Signs: Last Vital Signs Pulse 95 10/14/23 14:25 BP 118/80 10/14/23 14:25 BMI result Body Mass Index 19.9 Const Other: Constitutional:?Alert, in no acute distress. Neck supple Respiratory:?Clear to auscultation bilaterally. No wheezing, rales, or rhonchi. Cardiovascular:?S1, S2 regular, tachycardic. . Gastrointestinal:?Abdomen soft, G-tube in place, no surrounding drainage, normal bowel sounds. Neurologic:?Rhythmically nodding head.Incapable of moving extremties. Extremities:?No edema. Assessment & Plan Assessment & Plan (1) Dysphagia: Code(s): R13.10 - Dysphagia, unspecified Category: Medical (2) Chronic constipation: Code(s): K59.09 - Other constipation Category: Medical (3) Gastrostomy status: Code(s): Z93.1 - Gastrostomy status Category: Surgical Plan 42 YM with multiple sclerosis with cognitive and physical impairment, neurogenic bladder status post suprapubic catheter, mood disorder, essential hypertension, hepatitis-C, mixed hyperlipidemia seen for FU after PEG tube placement on 08/30/23 Pt is wheel chair bound and non verbal. Pt was seen by MATE CHIEF who recommended pureed solids and honey thick liquids. 3rd swallowing evaluation at [facility] - advised to continue same diet. Pt has been on above diet for the past 2 yrs. Wt decreased from 165 to 130 lbs NUTRITION WHEN ABLE, RECOMMEND OSMOLITE 1.5 AT MAX GOAL RATE 55 ML PER HOUR, FREE WATER FLUSHES 240 ML Q6 HOURS. PROVIDES 1980 KCALS (28.3 KCALS/KG), 82.8 G PROTEIN (1.18 G/KG), 1966 ML FREE WATER FROM FORMULA AND FLUSH (28.1 ML/KG). START OSMOLITE 1.5 AT 20 ML PER HOUR, INCREASE BY 10 ML EVERY 4 HOURS UNTIL MAX GOAL RATE OF 55 ML PER HOUR IS ACHIEVED. CHECK RESIDUALS EVERY 4 HOURS, HOLD FOR 2 HOURS IF >250 ML. FOLLOW FOR TUBE FEED TOLERANCE, RESIDUALS AND LYTES. SEE CLINICAL NUTRITION ASSESSMENT 08/30/23. Addendum entered by Eda Biswas RD 08/30/23 14:22: SPOKE WITH NA FROM [facility] VIA PHONE. EXPLAINED THAT TUBE FEED WOULD BE CONTINUOUS X 24 HOURS TO ESTABLISH TOLERANCE. NOCTURNAL FEEDS OR BOLUS FEEDS COULD BE CONSIDERED IN THE FUTURE IF TOLERATED. PATIENT TAKES PUREE SOLIDS WITH HONEY THICK LIQUIDS AT [facility]. 12/20/23 PEG tube feedings are going well - Osmolite 1.5 Formula 1 container (237 ml) 5 times a day bolus feeding - 6 am, 10 am, 2 pm, 7 pm and 10 pm Pt is also given a Pureed diet with honey thick liquids in addition to his tube feedings at 8 am, 12 noon and 5 pm Pt's Mom is his HCP. FU in 3 months Orders: Orders Complete Blood Count Auto Diff 10/14/23 Z93.1 - Gastrostomy status Vitamin D 25-OH Total 10/14/23 Z93.1 - Gastrostomy status Comprehensive Met. Panel 10/14/23 Z93.1 - Gastrostomy status Prealbumin 10/14/23 Z93.1 - Gastrostomy status Vitamin B12 and Folate 10/14/23 Z93.1 - Gastrostomy status Coding Level of Care Code Est Pt Level 4 (68965) Diagnoses Dysphagia R13.10 Chronic constipation K59.09 Gastrostomy status Z93.1 Time Spent (min) 21
[2023-10-14 14:25] VITALS: BP 118/80; PULSE 95; BMI 19.9
== END 2023-10-14 15:27 | disposition home or self-care (01) ==
PROVIDERS: PCP Internal Medicine; Visit Provider Internal Medicine Gastroenterology
DX: R13.10 Dysphagia, unspecified (principal); K59.09 Other constipation; Z93.1 Gastrostomy status
CPT/HCPCS: 99214

== ENCOUNTER → 2023-10-14 14:14 | Outpatient (BNVA) | payer OTHER, SELFPAY | PROVIDERS: PCP Internal Medicine; Visit Provider Internal Medicine Gastroenterology | DX: R13.10 Dysphagia, unspecified (principal); B19.20 Unspecified viral hepatitis C without hepatic coma; E78.2 Mixed hyperlipidemia; K59.09 Other constipation; Z93.1 Gastrostomy status | CPT/HCPCS: 99212 ==

== ENCOUNTER 2024-01-06 11:24 | Outpatient (AMB) | payer OTHER, SELFPAY ==
--- NOTE | 2024-01-06 11:25 | A.OFFVIS_ITS ---
Intake Visit Reasons: 6m follow up Intake Note: Patient is present for Telephone Follow up Urology Med: Methenamine Antibiotic Allergy: None Veneer Marker Required: No Allergies bee pollen [BEE STINGS] Allergy (Severe, Verified 10/14/23 14:22) Anaphylaxis HPI Comments Details: Noe KIRKPATRICK s a very pleasant male. They are a patient of Dr Cross. They are seen in the office today for the following urologic conditions. - neurogenic bladder Telemedicine Evaluation 15 min Consultation Doximity Coy Video attempted Discussed with caregiver Minimal UTIs since last visit in office Continue with - Suprapubic tube change now performed every 2 weeks Less clogging with debris Receives doxycycline the morning and afternoon of catheter change Daily to methenamine with vitamin-C - Add cranberry capsules Using doxycycline day of catheter change Neurogenic Bladder:? They are here for ?further management for incomplete emptying neurogenic bladder ?- can be changed at facility ? Urinary retention initially found?progressive development over time.? Associated conditions? Alzhiemers ?No ? CAD ?No ? CVA ?No ? Diabetes ?No ? Multiple sclerosis ?Yes ? renal replacement therapy ?No ? Spinal injury/surgery ?No ? Current management?SPT placed in hospital for retention and UTI.? Therapeutic plan?change SPT q2-3 weeks at facility.? [facility] Medical History History of substance abuse Former smoker GERD (gastroesophageal reflux disease) HTN (hypertension) GI bleed Hepatitis B Anemia Afib Failure to thrive in adult Seizures Constipation Neuromyopathy UTI (urinary tract infection) Suprapubic catheter Hepatitis C Multiple sclerosis Surgical History Hx of cystoscopy Social History Household Members: Other Household Members Other:: Nursing Home Housing: Other Housing Other:: Nursing Home Do you presently have visiting nurse or other home services: Yes Unable to assess alcohol history related to: Unknown Alcohol intake: never Comment: [facility] staff at bedside Patient Tobacco Use Status: Former Tobacco user Tobacco use type: Cigarette Advance Directives Date on File: 04/16/20 service: No Current occupational status: disabled Review of Systems Const All systems reviewed & are unremarkable except as noted in HPI and below Reports no additional complaints Resp Reports no additional complaints GI Reports no additional complaints Reports as per HPI Musc Reports no additional complaints Physical Exam Telemedicine evaluation Appropriate responses Regular breathing rate and rhythm HEENT Head: Yes normal to inspection Ears: hearing grossly normal bilaterally Eyes General: appearance normal, both eyes and all related structures Neck Neck: Yes normal visual inspection Chest Chest palpation & inspection: normal inspection of the chest Resp Effort & Inspection: normal respiratory effort and able to speak in complete sentences Telehealth Telehealth Telehealth Platform: eSoft Location of provider rendering services: practice address Location of patient: address on file Patient Identification confirmed using: Name, : Yes Telehealth method: video Patient verbally consented to treatment: Yes Patient verbally consented to billing insurance company: Yes Patient informed of any privacy concerns related to visit: Yes Minutes spent on Phone/Video with Pt.: 15 Assessment & Plan Assessment & Plan (1) Suprapubic catheter: Code(s): Z93.59 - Other cystostomy status Category: Medical (2) UTI (urinary tract infection): Code(s): N39.0 - Urinary tract infection, site not specified Category: Medical Plan Six-month follow-up office Patient Instructions: Imaging studies, laboratory and physical exam results were discussed and reviewed in detail. No major barriers to patient understanding were identified. An opportunity to ask questions regarding the treatment plan was provided. All questions were answered. The patient expressed understanding and agreement with the above treatment plan. The patient is aware they should contact our office by phone for worsening of their current condition or the appearance of new urologic symptoms. Compliance is encouraged with any medications and followup testing that is ordered. It is a privilege to participate in the urologic care of your patient. If you have any questions or concerns regarding treatment for the above conditions, or other urologic issues, please do not hesitate to contact me. The office telephone contact is [phone]. This note is constructed using voice recognition software. While every effort has been made to ensure accuracy strategic advisor errors may have been included. Yours sincerely, Dr Cristi Zepeda MD, [facility] - Urology Providers of Expert, Compassionate Care for the Genitourinary System Coding Level of Care Code Tele Est Pt Level 3 (09111) Diagnoses Suprapubic catheter Z93.59 UTI (urinary tract infection) N39.0
== END 2024-01-06 16:10 | disposition home or self-care (01) ==
LOC: HO.HUSH 11:24
PROVIDERS: PCP Internal Medicine; Visit Provider Urology
DX: Z93.59 Other cystostomy status (principal); N39.0 Urinary tract infection, site not specified
CPT/HCPCS: 99213

== ENCOUNTER → 2024-01-06 11:24 | Outpatient (BNVA) | payer OTHER, SELFPAY | PROVIDERS: PCP Internal Medicine; Visit Provider Urology ==

== ENCOUNTER 2024-01-14 11:17 | Outpatient (REF) | payer OTHER, SELFPAY ==
[2024-01-14 11:45] LABS: MANUAL DIFF FLAG NO
[2024-01-14 12:31] LABS: Basophils Percent Auto 0.4 % (0-2); Eosinophils Absolute Auto 0.1 X10*3/uL (0.0-0.4); Eosinophils Percent Auto 1.1 % (0-4); Hematocrit 43.1 % (42.0-52.0); Hemoglobin 14.4 g/dl (14.0-18.0); Imm Gran Abs Auto 0.02 X10*3/uL (0.00-0.03); Imm Gran Pct Auto 0.3 % (0.0-0.4); Lymphocytes Percent Auto 28.2 % (20-40); Mean Corpuscular HGB Conc 33.4 g/dl (31.0-36.0); Mean Corpuscular Volume 92.7 fL (80.0-98.0); Mean Platelet Volume 9.7 fL (9.4-12.4); Monocytes Absolute Auto 0.7 X10*3/uL (0.1-1.2); Neutrophils Absolute Auto 4.2 x10*3/uL (2.0-8.3); Platelet Count 200 X10*3/uL (160-400); Red Blood Count 4.65 X10*6/uL (4.60-5.80); Red Cell Distribution Width 13.1 % (11.0-16.0)
[2024-01-14 13:31] LABS: Alanine Aminotransferase 42 U/L (0-40); Alkaline Phosphatase 128 U/L (39-117); Anion Gap 13 (12-20); Aspartate Amino Transferase 22 U/L (5-37); Bilirubin Total 0.2 mg/dL (0.0-1.0); Blood Urea Nitrogen 21 mg/dL (9-16); Calcium 9.1 mg/dL (8.4-10.2); Carbon Dioxide 26 mmol/L (22-29); Chloride 102 mmol/L (96-108); Estimated Glomerular Filt Rate > 60; Glucose Random 141 mg/dL (60-115); Potassium 4.4 mmol/L (3.3-5.1); Sodium 137 mmol/L (135-145); Total Protein 7.4 g/dL (6.5-8.0)
[2024-01-14 13:48] LABS: Vitamin D 25-OH Total 30.1 ng/mL (>30)
[2024-01-14 13:59] LABS: Folate 13.8 ng/mL (> or = 4.0); Vitamin B12 1135 pg/mL (200-900)
== END 2024-01-14 11:18 | disposition home or self-care (01) ==
LOC: HO.LAB 11:17
PROVIDERS: PCP Internal Medicine; Visit Provider Internal Medicine Gastroenterology
DX: Z93.1 Gastrostomy status (principal)
CPT/HCPCS: 36415; 80053; 82306; 82607; 82746; 84134; 85025

== ENCOUNTER 2024-02-26 14:07 | Inpatient (IN) | payer OTHER, SELFPAY ==
[2024-02-26] VITALS (8 sets, daily range): BP systolic 108–148; BP diastolic 65–92; PULSE 123–156; RESP 19–23; TEMP 37.3–39.1; O2SAT 91–99; BMI 26.6
--- NOTE | ~2024-02-26 | XR_ITS ---
EXAMINATION: XR CHEST CLINICAL INFORMATION: AMS, fevers COMPARISON: Prior chest 01/21/2023 TECHNIQUE: Frontal view of the chest was obtained. FINDINGS: Linear opacities at the bases compatible with discoid atelectasis. Lungs otherwise clear. Cardiomediastinal silhouette normal. Osseous structures unremarkable XR/XR chest 1V IMPRESSION: Minimal bibasilar discoid atelectasis. Electronically signed by: Osvaldo Rebollar MD 02/26/2024 05:32 PM [facility] [place]
--- NOTE | ~2024-02-26 | CT_ITS ---
EXAMINATION: CT ABDOMEN AND PELVIS WITH CONTRAST CLINICAL INFORMATION: Distention grimacing febrile. COMPARISON: CT abdomen and pelvis August 2023 TECHNIQUE: Multidetector volumetric images were obtained from the superior aspect of the liver through the pubic symphysis following administration 85 mL of Omnipaque 350 intravenous contrast. Sagittal and coronal reformatted images were obtained on the technologist's workstation. Oral contrast: No This CT examination was performed using dose optimization techniques as appropriate, variously including the following: *Automated exposure control *Adjustment of mA and/or kV according to patient size (this includes techniques or standardized protocols for targeted exams where dose is matched to indication/reason for exam; i.e. extremities or head) *Use of iterative reconstruction technique DLP: 949mGy-cm FINDINGS: LUNG BASES: Minimal bibasilar discoid atelectasis LIVER, GALLBLADDER, AND BILIARY TREE: Multiple hypodense lesions in the liver unchanged compatible simple cyst. No intrahepatic biliary dilatation The gallbladder is unremarkable with no evidence of radiopaque gallstones, gallbladder wall thickening, or obvious pericholecystic inflammatory changes. PANCREAS: Unremarkable. SPLEEN: Unremarkable. ADRENAL GLANDS: Unremarkable. KIDNEYS AND URETERS: Bilateral renal cysts unchanged. No follow-up required No urinary tract calculi BLADDER: Suprapubic catheter present unchanged. GASTROINTESTINAL TRACT: Appendix: Not visualized. No inflammatory changes in the right lower quadrant. Large bowel: There is a large amount of retained stool with associated dilatation or enlargement of the sigmoid colon measuring up to 7 cm increased compared to prior Small bowel normal. STOMACH: G-tube in place ABDOMINAL WALL: No significant hernia is appreciated. LYMPH NODES: Normal. VASCULAR: Mild to moderate calcific atherosclerotic disease unchanged. PELVIC VISCERA: Unremarkable. OSSEOUS STRUCTURES: Unremarkable. CT/CT abdomen pelvis w IV con IMPRESSION: Large amount of retained stool in the colon with associated dilatation or enlargement of the sigmoid colon increased compared to prior. Fleischner guidelines were followed. Electronically signed by: Osvaldo Rebollar MD 02/26/2024 06:03 PM [facility]
--- NOTE | 2024-02-26 14:14 | ECG_ITS ---
Test Reason : SEPSOS ALERT Blood Pressure : / mmHG Vent. Rate : 148 BPM Atrial Rate : 148 BPM P-R Int : 128 ms QRS Dur : 090 ms QT Int : 346 ms P-R-T Axes : 056 058 029 degrees QTc Int : 543 ms Sinus tachycardia Otherwise normal ECG When compared with ECG of 30-AUG-2023 20:04, No significant change was found Referred By: Bonilla Lloyd Electronically Signed By:LISA HAGAN MD
--- NOTE | 2024-02-26 14:19 | ED_ITS ---
HPI - Weakness General Chief complaint: General Medical Stated complaint: sepsis alert, H/O MS Source: EMS and old records reviewed Mode of arrival: EMS Limitations: altered mental status History of Present Illness ED Provider: BIANKA HPI Narrative: 43 yo male from detention with PMH of MS bedbound with gastrotomy/ suprapubic judge needs total care, dysphaghia, UTI - hx of serratia S to bactrim but also Morganella bacteremia S to carbapenems, EMS states he doesn't speak much to staff but can generally give one word answers. They called 911 for 1 day of weakness, lethargy and were worried about UTI. Patient was hot to touch, tachycardic, flushed appearance. Normal BP with EMS. MD Complaint: generalized weakness Onset (ago): day(s) (24 hrs) Duration: progressively worsening Location: generalized Migration: none Severity: severe Relieving factors: none Exacerbating factors: none Context: other Associated symptoms: other (weakness, malaise) Related Data Home Medications ?Medication ?Instructions ?Recorded ?Confirmed alpha lipoic acid 600 mg tablet 600 mg PO BID 08/29/22 10/14/23 epinephrine 0.3 mg/0.3 mL 0.3 mg IM Q15M PRN Anaphylaxis 08/29/22 10/14/23 injection syringe fluticasone propionate 50 1 spray intranasal Q4H PRN 01/21/23 10/14/23 mcg/actuation nasal Congestion spray,suspension docusate sodium 100 mg capsule 100 mg PO BID 08/30/23 10/14/23 (Colace) sodium phosphates 19 gram-7 118 ml HI DAILY PRN BM 08/30/23 10/14/23 gram/118 mL enema (Fleet Enema) Previous Rx's ?Medication ?Instructions ?Recorded bisacodyl 10 mg rectal suppository 10 mg HI DAILY PRN constipation 08/21/23 (Dulcolax (bisacodyl)) #12 ea acetaminophen 325 mg tablet 650 mg (2 x 325 mg) feeding tube 09/01/23 Q8H PRN Fever Or Pain #30 tabs amitriptyline 100 mg tablet 100 mg feeding tube BEDTIME #30 09/01/23 tabs ascorbic acid (vitamin C) 500 mg 500 mg feeding tube BID 90 days 09/01/23 tablet (Vitamin C) #180 tabs atorvastatin 10 mg tablet 10 mg feeding tube BEDTIME #30 tabs 09/01/23 baclofen 10 mg tablet 40 mg (4 x 10 mg) feeding tube TID 09/01/23 #30 tabs famotidine 20 mg tablet 20 mg feeding tube BID #30 tabs 09/01/23 gabapentin 400 mg capsule 400 mg feeding tube TID #30 caps 09/01/23 loratadine 10 mg tablet 10 mg feeding tube DAILY #30 tabs 09/01/23 magnesium hydroxide 400 mg/5 mL 30 ml feeding tube DAILY PRN 09/01/23 oral suspension (Milk of Magnesia) Constipation #355 mL melatonin 5 mg tablet 5 mg feeding tube BEDTIME #30 tabs 09/01/23 methenamine hippurate 1 gram tablet 1 g feeding tube DAILY 90 days #90 09/01/23 tabs metoprolol tartrate 25 mg tablet 25 mg G-tube BID #60 tabs 09/01/23 phenytoin 50 mg chewable tablet 100 mg (2 x 50 mg) G-tube DAILY 09/01/23 #30 tabs polyethylene glycol 3350 17 17 g feeding tube BID #238 grams 09/01/23 gram/dose oral powder sennosides 8.6 mg capsule (senna) 17.2 mg (2 x 8.6 mg) feeding tube 09/01/23 BID Constipation #30 caps doxycycline monohydrate 100 mg 100 mg feeding tube DAILY PRN 01/27/24 tablet CATHETER CHANGE #30 tabs Allergies Allergy/AdvReac Type Severity Reaction Status Date / Time bee pollen [BEE STINGS] Allergy Severe Anaphylaxis Verified 02/26/24 14:18 Review of Systems 2 Review of Systems: ROS unable to be obtained due to altered mental status [facility] Past Medical History Attestation statement: The following information was validated with the patient. Source: old records reviewed Medical History History of substance abuse Former smoker GERD (gastroesophageal reflux disease) HTN (hypertension) GI bleed Hepatitis B Anemia Afib Failure to thrive in adult Seizures Constipation Neuromyopathy UTI (urinary tract infection) Suprapubic catheter Hepatitis C Multiple sclerosis Surgical History Hx of cystoscopy Social History Social History Household Members: Other Household Members Other:: Retirement Housing: Other Housing Other:: Retirement Do you presently have visiting nurse or other home services: Yes Unable to assess alcohol history related to: Unable to respond Alcohol intake: never Comment: detention staff at bedside Patient Tobacco Use Status: Former Tobacco user Tobacco use type: Cigarette Use of substances other than those prescribed or required for medical reasons: Unknown Advance Directives: Yes Advance Directives on File: Yes Advance Directives Date on File: 04/16/20 service: No Current occupational status: disabled Physical Exam 2 Vital Signs: Vital Signs: Last Vital Signs Temp 100.0 F 02/26/24 15:45 Pulse 134 H 02/26/24 16:19 Resp 20 02/26/24 16:19 BP 122/79 02/26/24 16:19 Pulse Ox 99 02/26/24 16:19 O2 Del Method Nasal Cannula 02/26/24 16:19 O2 Flow Rate 2 02/26/24 16:19 BMI result Body Mass Index 26.6 Appearance: Weak, lethargic moderate acute distress. Eyes: Pupils equal, round and reactive to light. ENT: Pharynx dry MM Neck: Normal inspection. Neck supple. CVS: tachycardic heart rate and rhythm. Pulses normal. Respiratory: No respiratory distress. Breath sounds normal. Abdomen: distended and he appears to grimace with palpation, G tube in place site is c/d/i : suprapubic site is c/d/i, thick yellow urine in tube Skin: Skin warm and hot to touch and flushed. poor skin turgor. Extremities: No lower extremity edema. He has atrophied legs and arms with poor muscle wasting Neuro: Oriented X 3. No motor deficit. No sensory deficit. Course Course Course Narrative: patient is responding to fluids and tylenol at this time Medications Administered Generic Name Dose Route Start Last Admin Trade Name Freq PRN Reason Stop Dose Admin Magnesium Sulfate 2 gm in 50 mls @ 25 mls/hr 02/26/24 14:35 02/26/24 14:41 Magnesium Sulfate/H2o IV 02/26/24 16:34 25 mls/hr ONCE ONE Administration Discontinued Medications Generic Name Dose Route Start Last Admin Trade Name Freq PRN Reason Stop Dose Admin Acetaminophen 325 mg 02/26/24 14:13 02/26/24 14:27 Acetaminophen Supp 325 Mg Supp.Rect HI 02/26/24 14:14 325 mg ONCE ONE Administration Acetaminophen 650 mg 02/26/24 14:13 02/26/24 14:26 Acetaminophen Supp 650 Mg Supp.Rect HI 02/26/24 14:14 650 mg ONCE ONE Administration Lactated Ringer's 1,000 mls @ 999 mls/hr 02/26/24 14:13 02/26/24 15:45 Lr IV 02/26/24 15:13 Infused .Q1H1M ONE Infusion Lactated Ringer's 1,000 mls @ 999 mls/hr 02/26/24 14:16 02/26/24 15:44 Lr IV 02/26/24 15:16 Infused .Q1H1M ONE Infusion Lactated Ringer's 500 mls @ 999 mls/hr 02/26/24 14:16 02/26/24 15:10 Lr IV 02/26/24 14:46 Infused .Q31M ONE Infusion Iohexol 100 ml 02/26/24 15:26 02/26/24 15:27 Iohexol 350 Mg/Ml 100 Ml Infus..Btl IV 02/26/24 15:27 85 ml ONCE ONE Administration Meropenem 1 gm 02/26/24 14:13 02/26/24 14:25 Meropenem 1 Gm Vial IVPUSH 02/26/24 14:14 1 gm ONCE ONE Administration Medical Decision Making Medical Decision Making MDM Narrative: 43 yo male from detention with PMH of MS bedbound with gastrotomy/ suprapubic judge needs total care, dysphaghia, UTI here with c/o weakness and lethargy at this time given his prior cultures I am going to give one time dose of meropenem. 30cc kg bolus, CXR and CT scan abdomen given his distention - sepsis protocol called on arrival Differential Diagnosis Differential Diagnoses: The differential diagnosis associated with the presentation includes pneumonia, UTI, obstruction, renal colic Admission/Observation Consideration of admission/observation: Escalation of care including admission/observation considered Lab Data [facility] Lab Attestation statement: I reviewed the patient's lab results. 02/26/24 14:21 02/26/24 14:21 Labs: Lab Results 02/26/24 02/26/24 02/26/24 Range/Units 14:21 14:22 14:50 WBC 17.5 H (4.8-10.8) X10*3/uL RBC 4.89 (4.60-5.80) X10*6/uL Hgb 15.3 (14.0-18.0) g/dl Hct 45.4 (42.0-52.0) % MCV 92.8 (80.0-98.0) fL MCH 31.3 (27.0-33.0) pg MCHC 33.7 (31.0-36.0) g/dl RDW 12.1 (11.0-16.0) % Plt Count 190 (160-400) X10*3/uL MPV 9.2 L (9.4-12.4) fL Immature Gran % (Auto) 0.3 (0.0-0.4) % Neut % (Auto) 86.5 H (45-73) % Lymph % (Auto) 4.6 L (20-40) % [place] % (Auto) 8.1 (2-11) % Eos % (Auto) 0.2 (0-4) % Baso % (Auto) 0.3 (0-2) % Lymph # (Auto) 0.8 L (1.2-4.9) X10*3/uL [place] # (Auto) 1.4 H (0.1-1.2) X10*3/uL Eos # (Auto) 0.0 (0.0-0.4) X10*3/uL Baso # (Auto) 0.1 (0.0-0.2) X10*3/uL Abs Immat Gran (auto) 0.06 H (0.00-0.03) X10*3/uL Absolute Neuts (auto) 15.1 H (2.0-8.3) x10*3/uL Absolute Nucleated RBC 0.000 (0.0-0.012) X10*3/uL Nucleated RBC % (auto) 0.0 (0.0-0.2) /100WBC Sodium 134 L (135-145) mmol/L Potassium 4.4 (3.3-5.1) mmol/L Chloride 102 (96-108) mmol/L Carbon Dioxide 21 L (22-29) mmol/L Anion Gap 15 (12-20) BUN 26 H (9-16) mg/dL Creatinine 0.68 (0.5-1.4) mg/dL Estim Creat Clear Calc 137.1 Estimated GFR > 60 Random Glucose 147 H (60-115) mg/dL Lactic Acid 1.7 (0.5-2.0) mmol/L Calcium 9.2 (8.4-10.2) mg/dL Magnesium 1.9 (1.6-2.6) mg/dL Total Bilirubin 0.4 (0.0-1.0) mg/dL Direct Bilirubin 0.2 (0.0-0.5) mg/dL AST 27 (5-37) U/L ALT 48 H (0-40) U/L Alkaline Phosphatase 121 H (39-117) U/L Troponin I High Sens < 2.7 (<3.5-35.0) ng/L B-Natriuretic Peptide < 10 (<100) pg/mL Total Protein 7.6 (6.5-8.0) g/dL Albumin 4.0 (3.5-5.0) g/dL Lipase 15 (8-78) U/L Urine Color Yellow Urine Appearance Clear Urine pH 7.5 (5.0-9.0) Ur Specific [place] 1.015 (1.005-1.025) Urine Protein Trace (Neg-Trace) mg/dL Urine Glucose (UA) Negative (Negative) mg/dL Urine Ketones Negative (Negative) mg/dL Urine Blood Small (1+) H (Negative) Urine Nitrite Negative (Negative) Ur Leukocyte Esterase Moderate (2+) H (Negative) Urine RBC 6-10 H (0-2) /HPF Urine WBC 21-50 H (0-5) /HPF Ur Squamous Epith Cells 0-2 (0-2) /HPF Urine Bacteria 1+ (None Seen) Hyaline Casts 0-2 (0-2) /LPF Influenza Type A (PCR) NEGATIVE (Negative) Influenza Type B (PCR) NEGATIVE (Negative) RSV RNA Qual (PCR) NEGATIVE (Negative) SARS-CoV-2 RNA (RT-PCR) NEGATIVE (Negative) Independent Interpretation I performed an independent interpretation of an: EKG and Plain X-Ray Interpretation: Rate: 148 Rhythm: sinus tach [place]: normal Normal P waves. Normal AZAEL. Normal QRS complex. ST T wave : no HUA, inverted t waves III qTC: 543 prior studies: no acute ischemia The study has been interpreted contemporaneously by me. . Independent Historian Clinical information obtained from an independent historian. History obtained from or confirmed by: EMS External Record Review External record reviewed: Inpatient record, Outpatient record and Prior outpatient labs Critical Care Time Critical Care Time Critical Care Time: Yes Total Critical Care Time: 45 Attestation: IVF x 30cckg/bolus, review of records, sepsis protocol I attest to this time spent taking care of the patient Discharge Plan Discharge Clinical Impression: Fever Qualifiers: Fever type: unspecified Qualified Code(s): R50.9 - Fever, unspecified Elevated WBC count Qualifiers: Leukocytosis type: unspecified Qualified Code(s): D72.829 - Elevated white blood cell count, unspecified Patient Disposition: Admitted As Inpatient Print Language: Turkish
[2024-02-26] MEDS: Meropenem 1 GM VIAL IVPUSH ×2 (14:25→22:11)
[2024-02-26] MEDS: Lactated Ringers 1,000 ML 999 ML IV ×2 (14:25→14:26)
[2024-02-26 14:26] LABS: MANUAL DIFF FLAG NO
[2024-02-26] MEDS: Acetaminophen Supp 650 MG SUPP.RECT PR (14:26)
[2024-02-26] MEDS: Acetaminophen Supp 325 MG SUPP.RECT PR (14:27)
[2024-02-26 14:28] LABS: Basophils Absolute Auto 0.1 X10*3/uL (0.0-0.2); Basophils Percent Auto 0.3 % (0-2); Eosinophils Percent Auto 0.2 % (0-4); Hematocrit 45.4 % (42.0-52.0); Hemoglobin 15.3 g/dl (14.0-18.0); Imm Gran Abs Auto 0.06 X10*3/uL (0.00-0.03); Imm Gran Pct Auto 0.3 % (0.0-0.4); Lymphocytes Absolute Auto 0.8 X10*3/uL (1.2-4.9); Lymphocytes Percent Auto 4.6 % (20-40); Mean Corpuscular HGB Conc 33.7 g/dl (31.0-36.0); Mean Corpuscular Hemoglobin 31.3 pg (27.0-33.0); Mean Corpuscular Volume 92.8 fL (80.0-98.0); Mean Platelet Volume 9.2 fL (9.4-12.4); Monocytes Absolute Auto 1.4 X10*3/uL (0.1-1.2); Monocytes Percent Auto 8.1 % (2-11); Neutrophils Absolute Auto 15.1 x10*3/uL (2.0-8.3); Neutrophils Percent Auto 86.5 % (45-73); Platelet Count 190 X10*3/uL (160-400); Red Blood Count 4.89 X10*6/uL (4.60-5.80); Red Cell Distribution Width 12.1 % (11.0-16.0); White Blood Count 17.5 X10*3/uL (4.8-10.8)
[2024-02-26] MEDS: Lactated Ringers 500 ML 999 ML IV (14:32)
[2024-02-26] MEDS: Magnesium Sulfate/H2O 2 GM/50 ML PIGGYBACK IV (14:41)
[2024-02-26 14:45] LABS: Lactic Acid 1.7 mmol/L (0.5-2.0)
[2024-02-26 14:51] LABS: B Type Natriuretic Peptide < 10 pg/mL (<100)
[2024-02-26 14:54] LABS: Anion Gap 15 (12-20); Aspartate Amino Transferase 27 U/L (5-37); Bilirubin Direct 0.2 mg/dL (0.0-0.5); Bilirubin Total 0.4 mg/dL (0.0-1.0); Blood Urea Nitrogen 26 mg/dL (9-16); Calcium 9.2 mg/dL (8.4-10.2); Carbon Dioxide 21 mmol/L (22-29); Chloride 102 mmol/L (96-108); Creatinine Clr Calc Pharmacy 137.1; Estimated Glomerular Filt Rate > 60; Glucose Random 147 mg/dL (60-115); Lipase 15 U/L (8-78); Magnesium 1.9 mg/dL (1.6-2.6); Potassium 4.4 mmol/L (3.3-5.1); Sodium 134 mmol/L (135-145); Total Protein 7.6 g/dL (6.5-8.0); Troponin-I High Sensitivity < 2.7 ng/L (<3.5-35.0)
[2024-02-26 15:03] LABS: Appearance Urine Clear; Color Urine Yellow; Glucose Urine UA Negative (Negative); Leukocyte Esterase Urine Moderate (2+) (Negative); Nitrite Urine Negative (Negative); PH 7.5 (5.0-9.0); Specific Gravity - Urine 1.015 (1.005-1.025); UMIC TRIGGER UACC YES; Urine Blood Small (1+) (Negative); Urine Ketones Negative (Negative); Urine Protein Trace mg/dL (Neg-Trace)
[2024-02-26 15:04] LABS: Alanine Aminotransferase 48 U/L (0-40); Alkaline Phosphatase 121 U/L (39-117)
[2024-02-26 15:08] LABS: Bacteria Urine 1+ (None Seen); Hyaline Casts Urine 0-2 /LPF (0-2); Squamous Epithelial Cell Urine 0-2 /HPF (0-2); UACC Culture Trigger YES; WBC Urine 21-50 /HPF (0-5)
[2024-02-26] MEDS: iohexoL 350 MG/ML 100 ML INFUS..BTL IV (15:27)
[2024-02-26 15:35] LABS: Influenza A PCR NEGATIVE (Negative); Influenza B PCR NEGATIVE (Negative); Resp Syncy Virus RNA Qual PCR NEGATIVE (Negative); SARS COV2 PCR INHOUSE NEGATIVE (Negative)
--- NOTE | 2024-02-26 17:50 | P.HPHOSP_ITS ---
History of Present Illness Date of Service: 02/26/24 Attending physician on admission: Lakia Deleon Chief Complaint: Lethargic, fever Pt is a 41-year-old male with a PMH significant for?MS?with severe cognitive and physical impairment, neurogenic bladder w/suprapubic cathter in place, depression, GERD, HLD, gastrotomy in place, chronically bedboud, and hx of ESBL UTI who presents to the ED from custodial for concern for UTI as patient has had increased lethargy and responsive only to painful stimuli since this morning. Staff also noted patient to be febrile, tachycardic, and hypertensive. Patient normally is able to speak a few words but has been nonverbal since last night. In the ED pt was febrile up to 102.3 and tachycardic up to 156. Labs were significant for leukocytosis 17.5, sodium 134, ALT 48, and alk-phos 121. Stable H&H. Renal function WNL. UA positive for UTI. Tested negative for flu, COVID, RSV.CXR showed minimal bibasilar discoid atelectasis. CT?of abdomen and pelvis showed large amount of retained stool in the colon with associated dilation of sigmoid colon, increased from prior. EKG demonstrated sinus tachycardia of 148 with QTc of 543. Pt was treated with 2.5L IVF, acetaminophen, Mag sulfate, and meropenem. Pt will be admitted to the hospital for treatment and further evaluation of acute encephalopathy in the setting of UTI with sepsis. Review of Systems 2 Review of Systems: Yes Unobtainable due to mental status [facility] Medical History History of substance abuse Former smoker GERD (gastroesophageal reflux disease) HTN (hypertension) GI bleed Hepatitis B Anemia Afib Failure to thrive in adult Seizures Constipation Neuromyopathy UTI (urinary tract infection) Suprapubic catheter Hepatitis C Multiple sclerosis Surgical History Hx of cystoscopy Social History Household Members: Other Household Members Other:: Retirement Housing: Other Housing Other:: Retirement Do you presently have visiting nurse or other home services: Yes Unable to assess alcohol history related to: Unable to respond Alcohol intake: never Comment: custodial staff at bedside Patient Tobacco Use Status: Former Tobacco user Tobacco use type: Cigarette Use of substances other than those prescribed or required for medical reasons: Unknown Advance Directives: Yes Advance Directives on File: Yes Advance Directives Date on File: 04/16/20 service: No Current occupational status: disabled Meds Allergies Allergy/AdvReac Type Severity Reaction Status Date / Time bee pollen [BEE STINGS] Allergy Severe Anaphylaxis Verified 02/26/24 14:18 Home Medications ?Medication ?Instructions ?Recorded ?Confirmed ?Last Taken ?Type alpha lipoic acid 600 mg tablet 600 mg PO BID 08/29/22 10/14/23 08/29/23 20:00 History epinephrine 0.3 mg/0.3 mL 0.3 mg IM Q15M PRN Anaphylaxis 08/29/22 10/14/23 08/29/23 20:00 History injection syringe fluticasone propionate 50 1 spray intranasal Q4H PRN 01/21/23 10/14/23 08/29/23 20:00 History mcg/actuation nasal Congestion spray,suspension docusate sodium 100 mg capsule 100 mg PO BID 08/30/23 10/14/23 Unknown History (Colace) sodium phosphates 19 gram-7 118 ml DE DAILY PRN BM 08/30/23 10/14/23 Unknown History gram/118 mL enema (Fleet Enema) Physical Exam 2 Vital Signs and Narrative: Vital Signs: Last Vital Signs Temp 100.0 F 02/26/24 15:45 Pulse 136 H 02/26/24 17:07 Resp 20 02/26/24 17:07 BP 119/76 02/26/24 17:07 Pulse Ox 99 02/26/24 17:07 O2 Del Method Nasal Cannula 02/26/24 17:07 O2 Flow Rate 2 02/26/24 17:07 BMI result Body Mass Index 26.6 General: Awake, nonverbal, not responding or following commands. Appears warm and flushed. Resp: CTA bilaterally CVS: S1, S2, regular rate, tachycardic GI: +BS, NT, no distention. PEG tube in place. Skin: Warm, dry Neuro: Pt chronically bedbound Extremities: No edema Results Labs 02/26/24 14:21 02/26/24 14:21 Labs: Laboratory Results - last 24 hr 02/26/24 02/26/2402/25/24 14:21 14:22 14:50 MCV 92.8 MCH 31.3 MCHC 33.7 RDW 12.1 Plt Count 190 MPV 9.2 L Immature Gran % (Auto) 0.3 Neut % (Auto) 86.5 H Lymph % (Auto) 4.6 L [place] % (Auto) 8.1 Eos % (Auto) 0.2 Baso % (Auto) 0.3 Lymph # (Auto) 0.8 L [place] # (Auto) 1.4 H Eos # (Auto) 0.0 Baso # (Auto) 0.1 Abs Immat Gran (auto) 0.06 H Absolute Neuts (auto) 15.1 H Absolute Nucleated RBC 0.000 Nucleated RBC % (auto) 0.0 Anion Gap 15 Estim Creat Clear Calc 137.1 Estimated GFR > 60 Random Glucose 147 H Lactic Acid 1.7 Calcium 9.2 Magnesium 1.9 Total Bilirubin 0.4 Direct Bilirubin 0.2 AST 27 ALT 48 H Alkaline Phosphatase 121 H Troponin I High Sens < 2.7 B-Natriuretic Peptide < 10 Total Protein 7.6 Albumin 4.0 Lipase 15 Urine Color Yellow Urine Appearance Clear Urine pH 7.5 Ur Specific [place] 1.015 Urine Protein Trace Urine Glucose (UA) Negative Urine Ketones Negative Urine Blood Small (1+) H Urine Nitrite Negative Ur Leukocyte Esterase Moderate (2+) H Urine RBC 6-10 H Urine WBC 21-50 H Ur Squamous Epith Cells 0-2 Urine Bacteria 1+ Hyaline Casts 0-2 Influenza Type A (PCR) NEGATIVE Influenza Type B (PCR) NEGATIVE RSV RNA Qual (PCR) NEGATIVE SARS-CoV-2 RNA (RT-PCR) NEGATIVE Imaging Radiologist's Impressions: Impressions Chest X-Ray 02/26/24 14:14 IMPRESSION: Minimal bibasilar discoid atelectasis. Electronically signed by: Osvaldo Rebollar MD 02/26/2024 05:32 PM [facility] Assessment and Plan (1) Acute UTI: Status: Acute (2) Acute metabolic encephalopathy: Status: Acute Plan Pt is a 41-year-old male with a PMH significant for?MS?with severe cognitive and physical impairment, neurogenic bladder w/suprapubic cathter in place, depression, GERD, HLD, gastrotomy in place, chronically bedboud, and hx of ESBL UTI who presents to the ED from custodial for concern for UTI as patient has had increased lethargy and responsive only to painful stimuli since this morning. Pt will be admitted to the hospital for treatment and further evaluation of acute encephalopathy in the setting of UTI with sepsis. Acute encephalopathy in the setting of UTI with sepsis Patient lethargic, nonverbal, confused above baseline, UA positive Meets sepsis criteria with fever, tachycardia, and leukocytosis; lactic acid WNL Patient received fluids and started on broad-spectrum antibiotics in the ED Patient with history of ESBL UTI Will treat with Jannette panel 1g q8h, started 02/26/2024 NPO ID consult Follow cultures Monitor mentation Tachycardia Patient tachycardic up to 156 EKG and monitoring showing sinus rhythm Likely in the setting of above Treat as above Monitor on telemetry Prolonged QTc EKG with QTc of 543 Avoid QT prolonging agents Repeat EKG in the morning Monitor on telemetry Constipation CT of abdomen and pelvis found large amount of retained stool with associated dilation of sigmoid colon, increased from prior Staff report had small BM yesterday, normal the day prior; usually goes daily +BS, abd exam soft and benign Continue bowel regimen General surgery consult Monitor bowel movements Diet Patient currently NPO due to acute encephalopathy Staff report pt receives 5 dietary shakes per feeding tube daily Pureed diet by mouth via syringe Honey thick liquids by mouth via syringe 8-ounce water flushes via feeding tube during meals MS Continue baclofen, gabapentin, phenytoin HLD Continue statin Full Code Attending:?Dr. Deleon DVT Prophylaxis: Lovenox Pt will require a hospitalization of at least two nights for treatment of?acute encephalopathy in setting of UTI with sepsis in a patient with history of ESBL bacteremia. Patient will require hospital level care for administration of IV antibiotics, and close monitoring of labs, vitals, and mental status. Quality Stroke Does the patient have a stroke diagnosis?: No VTE Prior VTE?: No VTE Risk Level:: Medical - moderate - high VTE Device Contraindication: Treatment Not Indicated VTE Drug Contraindication: N/A - Med Ordered
[2024-02-26] MEDS: Lactated Ringers 1,000 ML 125 ML IVCONT (18:37)
[2024-02-26] MEDS: Enoxaparin Sodium 40 MG/0.4 ML SYRINGE SUBCUT (18:40)
--- NOTE | 2024-02-26 19:05 | PC.NURSE ---
late entry - pt arrived to ED via EMS and a sepsis alert was called. pt was tachy upon arrival 130-160, febrile 102.3 rectal temp. BPs stable. Pt was placed on 2L oxygen for spot 90%. Per [facility], he usually talks a little in one or two words, sometimes in short sentences. His speech has declines since being at the [facility] due to advanced MS (per health care worker). Today staff noticed him to be minimally responsive to voice, and his temp and HR were elevated. In ED two lines were established, 2.5L bolus of fluid infused and abx given. labs, ekg and imaging done too. sepsis protocol followed. abd distended and firm, pt has a feeding tube. pt has a suprapubic catheter which has dark urine with alot of sediment in it. Catheter left in place, tubing changed, and fresh urine sample sent to the lab. pt has remained tachy thought stay in ED with HR rarely going below 130. Rectal tylenol was given on arrival - pts temp now 100.2 pt admitted. NPO
--- NOTE | 2024-02-26 19:30 | ECG_ITS ---
Test Reason : TACHY Blood Pressure : / mmHG Vent. Rate : 133 BPM Atrial Rate : 133 BPM P-R Int : 128 ms QRS Dur : 092 ms QT Int : 292 ms P-R-T Axes : 059 044 019 degrees QTc Int : 434 ms Sinus tachycardia Otherwise normal ECG When compared with ECG of 26-FEB-2024 14:26, No significant change was found Referred By: Bonilla Lloyd Electronically Signed By:LISA HAGAN MD
[2024-02-26] MEDS: Acetaminophen 1,000 MG/100 ML PIGGYBACK 400 MG IV (20:53)
[2024-02-27 02:47] VITALS: BP 117/75; PULSE 113; RESP 16; TEMP 37.1; O2SAT 97
[2024-02-27] MEDS: Lactated Ringers 1,000 ML 125 ML IVCONT ×2 (04:19→12:50)
[2024-02-27] MEDS: Meropenem 1 GM VIAL IVPUSH ×3 (06:02→23:08)
[2024-02-27 06:07] LABS: Anion Gap 12 (12-20); Blood Urea Nitrogen 19 mg/dL (9-16); Calcium 8.8 mg/dL (8.4-10.2); Carbon Dioxide 25 mmol/L (22-29); Chloride 104 mmol/L (96-108); Creatinine Clr Calc Pharmacy 143.5; Estimated Glomerular Filt Rate > 60; Glucose Random 105 mg/dL (60-115); Potassium 4.2 mmol/L (3.3-5.1); Sodium 137 mmol/L (135-145)
--- NOTE | 2024-02-27 06:19 | PC.NURSE ---
this rn assumed care of pt @ 2300. pt responds to name pt medicated according to mar. repositioned utilizing pillows
[2024-02-27 06:26] LABS: Hematocrit 42.6 % (42.0-52.0); Hemoglobin 13.9 g/dl (14.0-18.0); Mean Corpuscular HGB Conc 32.6 g/dl (31.0-36.0); Mean Corpuscular Hemoglobin 31.3 pg (27.0-33.0); Mean Corpuscular Volume 95.9 fL (80.0-98.0); Mean Platelet Volume 9.8 fL (9.4-12.4); Platelet Count 168 X10*3/uL (160-400); Red Blood Count 4.44 X10*6/uL (4.60-5.80); Red Cell Distribution Width 12.2 % (11.0-16.0); White Blood Count 15.4 X10*3/uL (4.8-10.8)
--- NOTE | 2024-02-27 07:29 | PHA.MEDREC ---
Addendum entered by Noe Mack RPh 02/27/24 10:19: MED REC CHECKED BY [facility] Original Note: Pharmacy Consult ? Medication Reconciliation Pharmacy has completed the medication reconciliation. Faxed list to pharmacy. Med list belongs to nursing home.
[2024-02-27 08:00] VITALS: BP 131/76; PULSE 120; RESP 18; TEMP 36.6; O2SAT 98
--- NOTE | 2024-02-27 10:28 | PM.CNGS ---
History of Present Illness Consult details Consult date: 02/27/24 Narrative: 43-year-old male referred the surgical service because of CT scan findings of heavy stool load and dilated colon. He has a history of metabolic encephalopathy, psychotic disorder, multiple sclerosis and your myopathy. He has been bed-bound for several years. He is noncommunicative. He requires full care in the retirement. He was noted to be lethargic for about 2 days in the senior care so he was brought to the emergency room yesterday. He was diagnosed to have UTI which he does have a history of recurrences in the past. He has a suprapubic tube as well as the peg tube. His CAT scan showed heavy stool volume in the colon some dilatation. No history can be elicited from the patient says he is not communicative. According to his caregiver at bedside, this is his normal and baseline mental status. Review of Systems Review of Systems: Yes Unobtainable due to mental status Constitutional: Constitutional: Reports chills, Reports fever(s) and Reports lethargy PMFSH Past Medical History Medical History (Updated 02/27/24 @ 10:32 by Vignesh Domingo MD) Constipation History of substance abuse Former smoker GERD (gastroesophageal reflux disease) HTN (hypertension) GI bleed Hepatitis B Anemia Afib Failure to thrive in adult Seizures Neuromyopathy UTI (urinary tract infection) Suprapubic catheter Hepatitis C Multiple sclerosis Surgical History Surgical History Hx of cystoscopy Social History Social History Household Members: Other Household Members Other:: Custodial Housing: Other Housing Other:: Custodial Do you presently have visiting nurse or other home services: Yes Unable to assess alcohol history related to: Unable to respond Alcohol intake: never Comment: retirement staff at bedside Patient Tobacco Use Status: Former Tobacco user Tobacco use type: Cigarette Advance Directives Date on File: 04/16/20 service: No Current occupational status: disabled Meds Allergies Allergy/AdvReac Type Severity Reaction Status Date / Time bee pollen [BEE STINGS] Allergy Severe Anaphylaxis Verified 02/26/24 14:18 Active Medications: Current Medications Enoxaparin Sodium (Enoxaparin Sodium 40 Mg/0.4 Ml Syringe) 40 mg SUBCUT Q24H [facility] Last Admin: 02/26/24 18:40 Dose: 40 mg Lactated Ringer's (Lr) 1,000 mls @ 125 mls/hr IVCONT .Q8H [facility] Last Admin: 02/27/24 04:19 Dose: 125 mls/hr Acetaminophen (Ofirmev) 1,000 mg in 100 mls @ 400 mls/hr IV Q6H PRN PRN Reason: fever Meropenem (Meropenem 1 Gm Vial) 1 gm IVPUSH Q8H [facility] Last Admin: 02/27/24 06:02 Dose: 1 gm Sodium Chloride (0.9 % Sodium Chloride Flush 3 Ml Syringe) 3 ml IVFLUSH QSHIFT [facility] Last Admin: 02/27/24 08:16 Dose: Not Given Home Medications ?Medication ?Instructions ?Recorded ?Confirmed ?Last Taken ?Type alpha lipoic acid 600 mg tablet 600 mg PO BID 08/29/22 02/27/24 08/29/23 20:00 History fluticasone propionate 50 1 spray intranasal Q4H PRN 01/21/23 02/27/24 08/29/23 20:00 History mcg/actuation nasal Congestion spray,suspension sodium phosphates 19 gram-7 118 ml [place] DAILY PRN BM 08/30/23 02/27/24 Unknown History gram/118 mL enema (Fleet Enema) doxycycline monohydrate 100 mg 100 mg feeding tube BID PRN 02/27/24 02/27/24 Unknown History tablet CATHETER CHANGE epinephrine 0.3 mg/0.3 mL 0.3 mg IM Q15M PRN Anaphylaxis 02/27/24 02/27/24 Unknown History injection, auto-injector gabapentin 100 mg capsule 200 mg PO TID 02/27/24 02/27/24 Unknown History polyethylene glycol 3350 17 17 g feeding tube DAILY 02/27/24 02/27/24 Unknown History gram/dose oral powder Physical Exam Vital Signs: Vital Signs: Last Vital Signs Temp 98.8 F 02/27/24 02:47 Pulse 113 H 02/27/24 02:47 Resp 16 02/27/24 02:47 BP 117/75 02/27/24 02:47 Pulse Ox 97 02/27/24 02:47 O2 Del Method Nasal Cannula 02/27/24 02:47 O2 Flow Rate 2 02/27/24 02:47 BMI result Body Mass Index 26.6 Const: Other: Awake, eyes opening but does not communicate General: no acute distress Resp: Effort & Inspection: normal respiratory effort Cardio: Rate: regular rate GI: Other: Suprapubic tube in place, peg tube in place Inspection: No distended Palpation (GI): Soft to palpation, not firm, nontender and no guarding Results Labs 02/27/24 05:31 02/27/24 05:31 Labs: Abnormal lab results 02/26/24 02/26/24 02/27/24 Range/Units 14:21 14:50 05:31 WBC 17.5 H 15.4 H (4.8-10.8) X10*3/uL RBC 4.44 L (4.60-5.80) X10*6/uL Hgb 13.9 L (14.0-18.0) g/dl MPV 9.2 L (9.4-12.4) fL Neut % (Auto) 86.5 H (45-73) % Lymph % (Auto) 4.6 L (20-40) % Lymph # (Auto) 0.8 L (1.2-4.9) X10*3/uL [place] # (Auto) 1.4 H (0.1-1.2) X10*3/uL Abs Immat Gran (auto) 0.06 H (0.00-0.03) X10*3/uL Absolute Neuts (auto) 15.1 H (2.0-8.3) x10*3/uL Sodium 134 L (135-145) mmol/L Carbon Dioxide 21 L (22-29) mmol/L BUN 26 H 19 H (9-16) mg/dL Random Glucose 147 H (60-115) mg/dL ALT 48 H (0-40) U/L Alkaline Phosphatase 121 H (39-117) U/L Urine Blood Small (1+) H (Negative) Ur Leukocyte Esterase Moderate (2+) H (Negative) Urine RBC 6-10 H (0-2) /HPF Urine WBC 21-50 H (0-5) /HPF Short CBC 02/26/24 02/27/24 Range/Units 14:21 05:31 WBC 17.5 H 15.4 H (4.8-10.8) X10*3/uL Hgb 15.3 13.9 L (14.0-18.0) g/dl Hct 45.4 42.6 (42.0-52.0) % Plt Count 190 168 (160-400) X10*3/uL BMP 02/26/24 02/27/24 14:21 05:31 Sodium 134 L 137 Potassium 4.4 4.2 Chloride 102 104 Carbon Dioxide 21 L 25 BUN 26 H 19 H Creatinine 0.68 0.65 Calcium 9.2 8.8 Liver Function 02/26/24 Range/Units 14:21 Total Bilirubin 0.4 (0.0-1.0) mg/dL Direct Bilirubin 0.2 (0.0-0.5) mg/dL AST 27 (5-37) U/L ALT 48 H (0-40) U/L Alkaline Phosphatase 121 H (39-117) U/L Albumin 4.0 (3.5-5.0) g/dL Urine 02/26/24 Range/Units 14:50 Urine Color Yellow Urine Appearance Clear Urine pH 7.5 (5.0-9.0) Ur Specific [place] 1.015 (1.005-1.025) Urine Protein Trace (Neg-Trace) mg/dL Urine Glucose (UA) Negative (Negative) mg/dL All other labs normal. Laboratory Results WBC 15.4 X10*3/uL (4.8-10.8) H 02/27/24 05:31 RBC 4.44 X10*6/uL (4.60-5.80) L 02/27/24 05:31 Hgb 13.9 g/dl (14.0-18.0) L 02/27/24 05:31 Hct 42.6 % (42.0-52.0) 02/27/24 05:31 MCV 95.9 fL (80.0-98.0) 02/27/24 05:31 MCH 31.3 pg (27.0-33.0) 02/27/24 05:31 MCHC 32.6 g/dl (31.0-36.0) 02/27/24 05:31 RDW 12.2 % (11.0-16.0) 02/27/24 05:31 Plt Count 168 X10*3/uL (160-400) 02/27/24 05:31 MPV 9.8 fL (9.4-12.4) 02/27/24 05:31 Immature Gran % (Auto) 0.3 % (0.0-0.4) 02/26/24 14:21 Neut % (Auto) 86.5 % (45-73) H 02/26/24 14:21 Lymph % (Auto) 4.6 % (20-40) L 02/26/24 14:21 [place] % (Auto) 8.1 % (2-11) 02/26/24 14:21 Eos % (Auto) 0.2 % (0-4) 02/26/24 14:21 Baso % (Auto) 0.3 % (0-2) 02/26/24 14:21 Lymph # (Auto) 0.8 X10*3/uL (1.2-4.9) L 02/26/24 14:21 [place] # (Auto) 1.4 X10*3/uL (0.1-1.2) H 02/26/24 14:21 Eos # (Auto) 0.0 X10*3/uL (0.0-0.4) 02/26/24 14:21 Baso # (Auto) 0.1 X10*3/uL (0.0-0.2) 02/26/24 14:21 Abs Immat Gran (auto) 0.06 X10*3/uL (0.00-0.03) H 02/26/24 14:21 Absolute Neuts (auto) 15.1 x10*3/uL (2.0-8.3) H 02/26/24 14:21 Absolute Nucleated RBC 0.000 X10*3/uL (0.0-0.012) 02/27/24 05:31 Nucleated RBC % (auto) 0.0 /100WBC (0.0-0.2) 02/27/24 05:31 Sodium 137 mmol/L (135-145) 02/27/24 05:31 Potassium 4.2 mmol/L (3.3-5.1) 02/27/24 05:31 Chloride 104 mmol/L (96-108) 02/27/24 05:31 Carbon Dioxide 25 mmol/L (22-29) 02/27/24 05:31 Anion Gap 12 (12-20) 02/27/24 05:31 BUN 19 mg/dL (9-16) H 02/27/24 05:31 Creatinine 0.65 mg/dL (0.5-1.4) 02/27/24 05:31 Estim Creat Clear Calc 143.5 02/27/24 05:31 Estimated GFR > 60 02/27/24 05:31 Random Glucose 105 mg/dL (60-115) 02/27/24 05:31 Lactic Acid 1.7 mmol/L (0.5-2.0) 02/26/24 14:22 Calcium 8.8 mg/dL (8.4-10.2) 02/27/24 05:31 Magnesium 1.9 mg/dL (1.6-2.6) 02/26/24 14:21 Total Bilirubin 0.4 mg/dL (0.0-1.0) 02/26/24 14:21 Direct Bilirubin 0.2 mg/dL (0.0-0.5) 02/26/24 14:21 AST 27 U/L (5-37) 02/26/24 14:21 ALT 48 U/L (0-40) H 02/26/24 14:21 Alkaline Phosphatase 121 U/L (39-117) H 02/26/24 14:21 Troponin I High Sens < 2.7 ng/L (<3.5-35.0) 02/26/24 14:21 B-Natriuretic Peptide < 10 pg/mL (<100) 02/26/24 14:21 Total Protein 7.6 g/dL (6.5-8.0) 02/26/24 14:21 Albumin 4.0 g/dL (3.5-5.0) 02/26/24 14:21 Lipase 15 U/L (8-78) 02/26/24 14:21 Urine Color Yellow 02/26/24 14:50 Urine Appearance Clear 02/26/24 14:50 Urine pH 7.5 (5.0-9.0) 02/26/24 14:50 Ur Specific [place] 1.015 (1.005-1.025) 02/26/24 14:50 Urine Protein Trace mg/dL (Neg-Trace) 02/26/24 14:50 Urine Glucose (UA) Negative mg/dL (Negative) 02/26/24 14:50 Urine Ketones Negative mg/dL (Negative) 02/26/24 14:50 Urine Blood Small (1+) (Negative) H 02/26/24 14:50 Urine Nitrite Negative (Negative) 02/26/24 14:50 Ur Leukocyte Esterase Moderate (2+) (Negative) H 02/26/24 14:50 Urine RBC 6-10 /HPF (0-2) H 02/26/24 14:50 Urine WBC 21-50 /HPF (0-5) H 02/26/24 14:50 Ur Squamous Epith Cells 0-2 /HPF (0-2) 02/26/24 14:50 Urine Bacteria 1+ (None Seen) 02/26/24 14:50 Hyaline Casts 0-2 /LPF (0-2) 02/26/24 14:50 Influenza Type A (PCR) NEGATIVE (Negative) 02/26/24 14:21 Influenza Type B (PCR) NEGATIVE (Negative) 02/26/24 14:21 RSV RNA Qual (PCR) NEGATIVE (Negative) 02/26/24 14:21 SARS-CoV-2 RNA (RT-PCR) NEGATIVE (Negative) 02/26/24 14:21 Impressions Chest X-Ray 02/26/24 14:14 IMPRESSION: Minimal bibasilar discoid atelectasis. Electronically signed by: Osvaldo Rebollar MD 02/26/2024 05:32 PM [facility] Abdomen/Pelvis CT 02/26/24 15:23 IMPRESSION: Large amount of retained stool in the colon with associated dilatation or enlargement of the sigmoid colon increased compared to prior. Fleischner guidelines were followed. Electronically signed by: Osvaldo Rebollar MD 02/26/2024 06:03 PM [facility] Imaging Abdomen CT scan report/results: report reviewed and image reviewed CT scan - pelvis: report reviewed and image reviewed Assessment and Plan (1) Constipation: Status: Acute 43-year-old male with multiple medical problems as described above. He is bed-bound with a suprapubic tube and the PEG tube. He was admitted for a urinary tract infection. His CAT scan does show a heavy stool volume in the colon he had some dilatation of the sigmoid. He does not appear to be obstructed. He is bed-bound, with multiple medical problems and therefore a predisposed to chronic and severe constipation. His abdomen is soft and benign. I would recommend bowel regimen with stool softeners and enemas for now. The rest of his care will be as per the hospitalist service including antibiotics for his UTI. Procedures Date of Service Date of Service: 02/27/24
--- NOTE | 2024-02-27 11:07 | P.PNIM_ITS ---
Subjective Subjective Date of Service: 02/27/24 Interval History: seen and examined this morning follow up for UTI awake, alert; appears comfortable unable to obtain ROS, nonverbal at baseline Physical Exam 2 Vital Signs: Vital Signs: Last Vital Signs Temp 97.9 F 02/27/24 08:00 Pulse 120 H 02/27/24 08:00 Resp 18 02/27/24 08:00 BP 131/76 02/27/24 08:00 Pulse Ox 98 02/27/24 08:00 O2 Del Method Room Air 02/27/24 08:00 O2 Flow Rate 2 02/27/24 02:47 BMI result Body Mass Index 26.6 Const: Other: lying in bed, awake, alert; appears comfortable unable to assess orientation moves extremities spontaneously but doesn't follow commands Nutritional Appearance: average body habitus Resp: Other: diminished breath sounds, decreased respiratory effort; no wheeze or rales appreciated Effort & Inspection: no respiratory distress and no use of accessory muscles Cardio: Rate: tachycardic GI: Other: feeding tube in place Inspection: No distended Palpation (GI): Soft to palpation : Other: suprapubic catheter Neuro: Other: moves extremities spontaneously Objective Data Active Medications Amitriptyline HCl (Amitriptyline Hcl 50 Mg Tablet) 100 mg G-TUBE BEDTIME [facility] Ascorbic Acid (Ascorbic Acid 500 Mg Tablet) 500 mg G-TUBE BID [facility] Atorvastatin Calcium (Atorvastatin Calcium 10 Mg Tablet) 10 mg G-TUBE BEDTIME [facility] Baclofen (Baclofen 20 Mg Tablet) 40 mg G-TUBE TID [facility] Bisacodyl (Bisacodyl 10 Mg Supp.Rect) 10 mg PA DAILY PRN PRN Reason: constipation Enoxaparin Sodium (Enoxaparin Sodium 40 Mg/0.4 Ml Syringe) 40 mg SUBCUT Q24H [facility] Last Admin: 02/26/24 18:40 Dose: 40 mg Documented By: WILIAM Famotidine (Famotidine 20 Mg Tablet) 20 mg G-TUBE BID [facility] Gabapentin (Gabapentin 100 Mg Capsule) 200 mg PO TID [facility] Lactated Ringer's (Lr) 1,000 mls @ 125 mls/hr IVCONT .Q8H [facility] Last Admin: 02/27/24 04:19 Dose: 125 mls/hr Documented By: PAPO Acetaminophen (Ofirmev) 1,000 mg in 100 mls @ 400 mls/hr IV Q6H PRN PRN Reason: fever Loratadine (Loratadine 10 Mg Tablet) 10 mg G-TUBE DAILY [facility] Meropenem (Meropenem 1 Gm Vial) 1 gm IVPUSH Q8H [facility] Last Admin: 02/27/24 06:02 Dose: 1 gm Documented By: PAPO Metoprolol Tartrate (Metoprolol Tartrate 25 Mg Tablet) 25 mg G-TUBE BID [facility]; Protocol Phenytoin (Phenytoin Chewable 50 Mg Tab.Chew) 100 mg PO DAILY [facility] Polyethylene Glycol (Polyethylene Glycol 3350 17 Gm Powd.Pack) 17 gm G-TUBE DAILY [facility] Senna (Sennosides 8.6 Mg Tablet) 17.2 mg G-TUBE BID [facility] Sodium Chloride (0.9 % Sodium Chloride Flush 3 Ml Syringe) 3 ml IVFLUSH QSHIFT [facility] Last Admin: 02/27/24 08:16 Dose: Not Given Documented By: NILA Non-Admin Reason: IV Running Labs 02/27/24 05:31 02/27/24 05:31 Labs: Laboratory Results - last 24 hr 02/26/24 02/26/24 02/26/24 14:21 14:22 14:50 MCV 92.8 MCH 31.3 MCHC 33.7 RDW 12.1 Plt Count 190 MPV 9.2 L Immature Gran % (Auto) 0.3 Neut % (Auto) 86.5 H Lymph % (Auto) 4.6 L [place] % (Auto) 8.1 Eos % (Auto) 0.2 Baso % (Auto) 0.3 Lymph # (Auto) 0.8 L [place] # (Auto) 1.4 H Eos # (Auto) 0.0 Baso # (Auto) 0.1 Abs Immat Gran (auto) 0.06 H Absolute Neuts (auto) 15.1 H Absolute Nucleated RBC 0.000 Nucleated RBC % (auto) 0.0 Anion Gap 15 Estim Creat Clear Calc 137.1 Estimated GFR > 60 Random Glucose 147 H Lactic Acid 1.7 Calcium 9.2 Magnesium 1.9 Total Bilirubin 0.4 Direct Bilirubin 0.2 AST 27 ALT 48 H Alkaline Phosphatase 121 H Troponin I High Sens < 2.7 B-Natriuretic Peptide < 10 Total Protein 7.6 Albumin 4.0 Lipase 15 Urine Color Yellow Urine Appearance Clear Urine pH 7.5 Ur Specific [place] 1.015 Urine Protein Trace Urine Glucose (UA) Negative Urine Ketones Negative Urine Blood Small (1+) H Urine Nitrite Negative Ur Leukocyte Esterase Moderate (2+) H Urine RBC 6-10 H Urine WBC 21-50 H Ur Squamous Epith Cells 0-2 Urine Bacteria 1+ Hyaline Casts 0-2 Influenza Type A (PCR) NEGATIVE Influenza Type B (PCR) NEGATIVE RSV RNA Qual (PCR) NEGATIVE SARS-CoV-2 RNA (RT-PCR) NEGATIVE 02/27/24 05:31 MCV 95.9 MCH 31.3 MCHC 32.6 RDW 12.2 Plt Count 168 MPV 9.8 Immature Gran % (Auto) Neut % (Auto) Lymph % (Auto) [place] % (Auto) Eos % (Auto) Baso % (Auto) Lymph # (Auto) [place] # (Auto) Eos # (Auto) Baso # (Auto) Abs Immat Gran (auto) Absolute Neuts (auto) Absolute Nucleated RBC 0.000 Nucleated RBC % (auto) 0.0 Anion Gap 12 Estim Creat Clear Calc 143.5 Estimated GFR > 60 Random Glucose 105 Lactic Acid Calcium 8.8 Magnesium Total Bilirubin Direct Bilirubin AST ALT Alkaline Phosphatase Troponin I High Sens B-Natriuretic Peptide Total Protein Albumin Lipase Urine Color Urine Appearance Urine pH Ur Specific [place] Urine Protein Urine Glucose (UA) Urine Ketones Urine Blood Urine Nitrite Ur Leukocyte Esterase Urine RBC Urine WBC Ur Squamous Epith Cells Urine Bacteria Hyaline Casts Influenza Type A (PCR) Influenza Type B (PCR) RSV RNA Qual (PCR) SARS-CoV-2 RNA (RT-PCR) Assessment and Plan (1) Constipation: Status: Acute (2) Acute UTI: Status: Acute Plan This is a 41-year-old male with a PMH significant for?MS?with severe cognitive and physical impairment, neurogenic bladder w/ suprapubic cathter, Gtube, depression, GERD, HLD, chronically bedboud/nonverbal, and hx of ESBL UTI who [facility] the ED from [facility] with lethargy found to have acute encephalopathy in the setting of UTI with sepsis. Acute toxic encephalopathy due to sepsis from UTI Met sepsis criteria with fever, tachycardia, and leukocytosis; lactic acid WNL. afebrile, white count trending down, remains tachycardic history of ESBL UTI - continue meropenem started 02/26/2024 ID consult pending Urine culture, blood cultures pending Sinus Tachycardia EKG and monitoring showing sinus rhythm Likely due to fever/acute illness; also on BB at baseline, resume metoprolol as bp stable; overall HR improving continue IVF, consider thyroid labs if persists Prolonged QTc resolved on repeat EKG Constipation CT of abdomen and pelvis found large amount of retained stool with associated dilation of sigmoid colon Staff report had small BM yesterday, normal the day prior; usually goes daily abdominal exam benign seen by general surgery - continue bowel regimen and enemas Diet was initially made npo due to lethargy; baseline Pureed diet with honey thick liquids via syringe speech evaluation pending resume tube feeding diet MS Continue baclofen, gabapentin, phenytoin bedbound/nonverbal at baseline - seems to be near baseline mental status HLD Continue statin Full Code DVT Prophylaxis: Lovenox Requires ongoing inpatient stay for management of UTI with sepsis in a patient with history of ESBL bacteremia. Requiring hospital level of care for administration of IV antibiotics, and close monitoring of labs, vitals, and mental status. Quality Stroke Does the patient have a stroke diagnosis?: No VTE Prior VTE?: No VTE Risk Level:: Medical - moderate - high VTE Device Contraindication: Treatment Not Indicated VTE Drug Contraindication: N/A - Med Ordered
[2024-02-27 11:45] VITALS: BP 145/70; PULSE 115; RESP 19; TEMP 36.7; O2SAT 98
--- NOTE | 2024-02-27 12:27 | MHC.CM.PN ---
Pt has dx: MS, and is completely dependent with all care, non-verbal. CM intake assessment completed with pts manager er Lexie at [phone]. Pt is active with [facility] at the longterm, he is bed/wheelchair bound. Pt will transport back to the longterm via BLS. HCP on file is pts mother Reyna, this CM placed a call to her at [phone], a voicemail was left. PCP: Dr. Emma Cross
[2024-02-27] MEDS: Metoprolol Tartrate 25 MG TABLET G-TUBE ×2 (12:50→20:36)
[2024-02-27 15:38] VITALS: BP 111/63; PULSE 97; RESP 18; TEMP 36.7; O2SAT 96
[2024-02-27] MEDS: Sodium Phosphate,Mono-Dibasic 133 ML ENEMA PR (16:03)
[2024-02-27] MEDS: Baclofen 20 MG TABLET 40 MG G-TUBE ×2 (16:35→20:09)
[2024-02-27] MEDS: Gabapentin 100 MG CAPSULE 200 MG PO ×2 (16:35→20:11)
[2024-02-27] MEDS: 0.9 % Sodium Chloride Flush 3 ML SYRINGE IVFLUSH (16:35)
--- NOTE | 2024-02-27 16:57 | PC.NURSE ---
patient had large pasty bowel movement post fleet enema
[2024-02-27 20:00] VITALS: BP 129/80; PULSE 106; RESP 16; TEMP 37.2; O2SAT 95
[2024-02-27] MEDS: Amitriptyline HCl 50 MG TABLET 100 MG G-TUBE (20:09)
[2024-02-27] MEDS: Atorvastatin Calcium 10 MG TABLET G-TUBE (20:09)
[2024-02-27] MEDS: Ascorbic Acid 500 MG TABLET G-TUBE (20:10)
[2024-02-27] MEDS: Famotidine 20 MG TABLET G-TUBE (20:11)
[2024-02-27] MEDS: Sennosides 8.6 MG TABLET 17.2 MG G-TUBE (20:11)
[2024-02-27] MEDS: Enoxaparin Sodium 40 MG/0.4 ML SYRINGE SUBCUT (20:11)
[2024-02-27] MEDS: vancomycin/NS 2,000 MG/500 ML PLAST..BAG 250 MG IV (20:35)
[2024-02-27 20:36] VITALS: BP 123/87; PULSE 100
[2024-02-28] VITALS (8 sets, daily range): BP systolic 107–134; BP diastolic 70–79; PULSE 80–121; RESP 16–22; TEMP 36.8–37.9; O2SAT 94–96; BMI 26.6
[2024-02-28] MEDS: Lactated Ringers 1,000 ML 125 ML IVCONT ×2 (00:14→08:15)
[2024-02-28] MEDS: Meropenem 1 GM VIAL IVPUSH ×3 (06:10→21:48)
[2024-02-28 06:41] LABS: Creatinine Clr Calc Pharmacy 158.1; Estimated Glomerular Filt Rate > 60
[2024-02-28] MEDS: vancomycin HCL 1,250 MG in 0.9 % Sodium Chloride 250 ML 166.67 MG IV ×2 (08:15→21:48)
[2024-02-28] MEDS: 0.9 % Sodium Chloride Flush 3 ML SYRINGE IVFLUSH ×4 (08:16→21:49)
[2024-02-28] MEDS: Gabapentin 100 MG CAPSULE 200 MG G-TUBE ×3 (09:51→21:50)
[2024-02-28] MEDS: Metoprolol Tartrate 25 MG TABLET G-TUBE ×2 (09:51→21:51)
[2024-02-28] MEDS: Baclofen 20 MG TABLET 40 MG G-TUBE ×3 (09:51→21:51)
[2024-02-28] MEDS: polyethylene glycoL 3350 17 GM POWD.PACK G-TUBE (09:51)
[2024-02-28] MEDS: Phenytoin Chewable 50 MG TAB.CHEW 100 MG PO (09:51)
[2024-02-28] MEDS: Sennosides 8.6 MG TABLET 17.2 MG G-TUBE ×2 (09:51→21:51)
[2024-02-28] MEDS: Ascorbic Acid 500 MG TABLET G-TUBE ×2 (09:51→21:51)
[2024-02-28] MEDS: Famotidine 20 MG TABLET G-TUBE ×2 (09:52→21:51)
[2024-02-28] MEDS: Loratadine 10 MG TABLET G-TUBE (09:52)
--- NOTE | 2024-02-28 10:45 | HO.WOUND ---
Wound Consult: Initial 43yr old? [place] [facility] [place] - See progress notes and H&P for detailed history.? Wound consult placed for Coccyx.? Patient is nonverbal baseline and requires assistance with repositions.? Coccyx Ischium Etiology: ??healed pressure injuries noted on Admission Wound Bed: intact pink scar tissue noted - tissues remains blanchable Drainage / Odor: None [place] wound: ?intact rash noted - direct care nurse observed - No Induration, Fluctuance or Warmth noted Goals of Treatment: ? Prevention measures to be employed - off load pressure Q2hr turns, barrier cream to protect frmo friciton and moisture and off load heels from surface of bed . Of note both heels assessed for pink intact blanchable tissue no inury noted. Recommendations: 1. Turn and Reposition every 2 hours and as needed for patient comfort.? Use pillows or wedges to support off loading positions. 2. Off Load all bony prominences with use of pillows and heel boots if needed.? Apply Preventative foams where needed. ? 3. Monitor for incontinence and moisture control, use barrier creams when needed for prevention and treatment. 4. Provide adequate and supplemental nutrition.? 5. Order low air loss mattress. 6. When applicable maintain blood glucose levels per Providers order. 7. Coccyx and Bilateral Ischium - Routine cleansing, apply barrier cream twice daily and prn. Off Load pressure with Q2hr turns and use of pillows. Elevate heels off of surface of bed with use of pillows. May use preventative foam dressing to aid in pressure redistribution. Re-consult wound care Nurse for wound deterioration or wound changes.
--- NOTE | 2024-02-28 11:03 | MHC.CLN ---
RE; CONSULT PT WITH 25% SIGNIFICANT WT GAIN X 6 MONTHS WHILE RECEIVING PO PURRED DIET AND BOLUS TF THAT HAS NOT BEEN ADJUSTED WITH ONGOING WT GAIN AT ASSISTED PT CURRENTLY NPO PT TYPICALLY CONSUMES PUREED DIET AT ASSISTED. SPOKE WITH SANDWICH BOARD CARRIER IN PT'S ROOM WHO REPORTS PT EATS EVERYTHING AND RECEIVES BOLUS TF OSMOLITE 1.5 240ML X5 PER DAY WITH 240 ML FREE WATER FLUSHES TID PROVIDES 1800KCALS, 75G PROTEIN, 1634ML TOTAL WATER FROM FORMULA AND FLUSHES. TF OVER EXCEEDING ESTIMATED NEEDS WITH PO DIET CONSUMPTION PLAN: RECOMMEND REDUCING BOLUS FEEDING TO OSMOLITE 1.5 TID (2 HOURS BEFORE OR AFTER MEALS) TO PROVIDE 1080KCALS, 45G PROTEIN, 549ML CONTINUE 240ML FREE WATER FLUSHES TID RESUME PUREED DIET WHEN ABLE DISCUSSED CASE WITH SANDWICH BOARD CARRIER IN PT'S ROOM FROM ASSISTED-AGREES WITH PLAN
--- NOTE | 2024-02-28 12:45 | HO.PM.IMPN ---
Subjective Subjective Date of Service: 02/28/24 Interval History: Being followed for acute encephalopathy in the setting of UTI with sepsis Unable to obtain meaningful history due to mental status. Review of Systems Unable to obtain due to mental status. Physical Exam Vital Signs: Vital Signs: Last Vital Signs Temp 99.2 F 02/28/24 11:52 Pulse 113 H 02/28/24 11:52 Resp 16 02/28/24 11:52 BP 120/72 02/28/24 11:52 Pulse Ox 94 02/28/24 11:52 O2 Del Method Room Air 02/28/24 11:52 O2 Flow Rate 2 02/27/24 02:47 BMI result Body Mass Index 26.6 Const: Other: General resting comfortably in no acute distress. Neck no JVD. CVS regular rate rhythm, Respiratory no respiratory distress, no wheeze, no rhonchi. Gastrointestinal feeding tube in place, no distention, soft to palpation bowel sounds audible, Extremities no edema. Neuro moves extremities spontaneously, unable to communicate, unable to assess orientation, does not follow commands Objective Data Active Medications Acetaminophen (Acetaminophen Supp 650 Mg Supp.Rect) 650 mg [place] Q6H PRN PRN Reason: Fever >100.4 Amitriptyline HCl (Amitriptyline Hcl 50 Mg Tablet) 100 mg G-TUBE BEDTIME [facility] Last Admin: 02/27/24 20:09 Dose: 100 mg Documented By: TAI Ascorbic Acid (Ascorbic Acid 500 Mg Tablet) 500 mg G-TUBE BID [facility] Last Admin: 02/28/24 09:51 Dose: 500 mg Documented By: ABI Atorvastatin Calcium (Atorvastatin Calcium 10 Mg Tablet) 10 mg G-TUBE BEDTIME [facility] Last Admin: 02/27/24 20:09 Dose: 10 mg Documented By: TAI Baclofen (Baclofen 20 Mg Tablet) 40 mg G-TUBE TID [facility] Last Admin: 02/28/24 09:51 Dose: 40 mg Documented By: ABI Bisacodyl (Bisacodyl 10 Mg Supp.Rect) 10 mg [place] DAILY PRN PRN Reason: constipation Enoxaparin Sodium (Enoxaparin Sodium 40 Mg/0.4 Ml Syringe) 40 mg SUBCUT Q24H [facility] Last Admin: 02/27/24 20:11 Dose: 40 mg Documented By: TAI Famotidine (Famotidine 20 Mg Tablet) 20 mg G-TUBE BID [facility] Last Admin: 02/28/24 09:52 Dose: 20 mg Documented By: ABI Gabapentin (Gabapentin 100 Mg Capsule) 200 mg G-TUBE TID [facility] Last Admin: 02/28/24 09:51 Dose: 200 mg Documented By: ABI Lactated Ringer's (Lr) 1,000 mls @ 125 mls/hr IVCONT .Q8H [facility] Last Admin: 02/28/24 10:30 Dose: Not Given Documented By: ABI Non-Admin Reason: IV Running Vancomycin HCl 1,250 mg/ (Sodium Chloride) 250 mls @ 166.667 mls/hr IV Q12H [facility] Last Infusion: 02/28/24 11:22 Dose: Infused Documented By: ABI Loratadine (Loratadine 10 Mg Tablet) 10 mg G-TUBE DAILY [facility] Last Admin: 02/28/24 09:52 Dose: 10 mg Documented By: ABI Meropenem (Meropenem 1 Gm Vial) 1 gm IVPUSH Q8H [facility] Last Admin: 02/28/24 06:10 Dose: 1 gm Documented By: TAI Metoprolol Tartrate (Metoprolol Tartrate 25 Mg Tablet) 25 mg G-TUBE BID [facility]; Protocol Last Admin: 02/28/24 09:51 Dose: 25 mg Documented By: ABI Pharmacy Consult (Consult Rx Vancomycin Dosing) 1 each MISCELLANE DAILY PRN PRN Reason: Consult order Phenytoin (Phenytoin Chewable 50 Mg Tab.Chew) 100 mg PO DAILY [facility] Last Admin: 02/28/24 09:51 Dose: 100 mg Documented By: ABI Polyethylene Glycol (Polyethylene Glycol 3350 17 Gm Powd.Pack) 17 gm G-TUBE DAILY [facility] Last Admin: 02/28/24 09:51 Dose: 17 gm Documented By: ABI Senna (Sennosides 8.6 Mg Tablet) 17.2 mg G-TUBE BID [facility] Last Admin: 02/28/24 09:51 Dose: 17.2 mg Documented By: ABI Sodium Chloride (0.9 % Sodium Chloride Flush 3 Ml Syringe) 3 ml IVFLUSH QSHIFT [facility] Last Admin: 02/28/24 08:16 Dose: 3 ml Documented By: ABI Labs 02/27/24 05:31 12/16/24 05:55 Labs: Laboratory Results - last 24 hr 02/28/24 05:55 Estim Creat Clear Calc 158.1 Estimated GFR > 60 Microbiology Microbiology Results: Microbiology 02/26/24 Unknown Urine Culture - Final Urine Other - Suprapubic 02/26/24 14:23 Blood Culture - Preliminary Blood - Venous Prelim: GPC Gram Stain only 02/26/24 14:23 Blood Culture - Preliminary Blood - Venous No growth after 24 hours. Assessment and Plan (1) Tachycardia: Status: Acute (2) Acute UTI: Status: Acute (3) Elevated WBC count: Status: Acute Plan 41-year-old male with a PMH significant for?MS?with severe cognitive and physical impairment, neurogenic bladder w/ suprapubic cathter, Gtube, depression, GERD, HLD, chronically bedboud/nonverbal, and hx of ESBL UTI who presents to the ED from assisted with lethargy found to have acute encephalopathy in the setting of UTI with sepsis. Acute toxic encephalopathy Initially felt due to sepsis from UTI Met sepsis criteria with fever, tachycardia, and leukocytosis; lactic acid WNL. afebrile, white count trending down, remains tachycardic history of ESBL UTI - on IV vancomycin and IV meropenem however 1/2 blood culture positive for coagulase negative Staphylococcus , urine culture showed mixed genaro No other source of infection chest x-ray showed minimal bibasilar discoid atelectasis, CT abdomen and pelvis showed large amount of retained stool in the colon with associated dilatation and enlargement of sigmoid colon ID consult pending Will DC vancomycin and continue IV meropenem, follow with ID Sinus Tachycardia Persistent mild tachycardia Likely due to fever/acute illness; continue metoprolol low dose; overall HR improving, check TSH Prolonged QTc resolved on repeat EKG Constipation CT of abdomen and pelvis found large amount of retained stool with associated dilation of sigmoid colon abdominal exam benign seen by general surgery - continue bowel regimen and enemas, add lactulose since remains constipated Diet baseline Pureed diet with honey thick liquids via syringe Seen by speech therapy they recommend NPO , will educate assisted staff to keep people NPO tube feeding diet resumed. MS Continue baclofen, gabapentin, phenytoin bedbound/nonverbal at baseline - seems to be near baseline mental status HLD Continue statin Full Code DVT Prophylaxis: Lovenox Requires ongoing inpatient stay for management of UTI with sepsis in a patient with history of ESBL bacteremia. Requiring hospital level of care for administration of IV antibiotics, and close monitoring of labs, vitals, and mental status. Quality Stroke Does the patient have a stroke diagnosis?: No VTE Prior VTE?: No VTE Risk Level:: Medical - moderate - high VTE Device Contraindication: Treatment Not Indicated VTE Drug Contraindication: N/A - Med Ordered
--- NOTE | 2024-02-28 13:38 | MHC.SL.SWA ---
Speech Pathologist Impression: Severe oral dysphagia, moderate pharyngeal dysphagia Risk of Aspiration Due to: Medically Fragile Reduced Cognition History of Dysphagia Dysphasia Diet Status: Pt has hx of multiple sclerosis, with associated dysphagia (longstanding). Pt lives in a alf and is on a pureed diet with honey thick liquids at baseline. senior care staff reports he is fed by oral syringe. Liquid Consistency and Strategies for Safe Swallow: Liquid Intake Recommendation: NPO Liquid Intake Strategies: Solid Food Consistency: Dietary Recommendations: NPO Additional Modifications to Solid Foods: Oral Medication Intake: NPO Please contact the pharmacy regarding appropriate crushable or liquid drug formulations that are available whenever modified delivery is recommended. Compensatory Strategies and Precautions to be Taken for Safe Swallow: Supervision While Eating and Drinking for Safe Swallow: Foods to Avoid: Swallowing Recommended Treatments: Compens. Strategy Educat. Recommendation for Speech: Further Testing Needed Comment: Frequency/Duration: M-F Daily Date Range for Service Req: Timeline to reassess: Sample Worker Clinican/Clinical Fellow: No Supervisory Statement: I have reviewed and agree with the student/clinical fellow's documentation: N/A Speech Language Pathologist: Renay Bosch M.S., CCC-SPEECH AND HEARING DIRECTOR
--- NOTE | 2024-02-28 14:12 | P.PNGS_ITS ---
Subjective Subjective Date of Service: 02/28/24 Interval history: No events reported Mental status as baseline Has had BMs reported Physical Exam 2 Vital Signs: Vital Signs: Last Vital Signs Temp 99.2 F 02/28/24 11:52 Pulse 113 H 02/28/24 11:52 Resp 16 02/28/24 11:52 BP 120/72 02/28/24 11:52 Pulse Ox 94 02/28/24 11:52 O2 Del Method Room Air 02/28/24 11:52 O2 Flow Rate 2 02/27/24 02:47 BMI result Body Mass Index 26.6 Const: Other: Nonverbal General: comfortable and no acute distress Resp: Effort & Inspection: normal respiratory effort Cardio: Rate: tachycardic GI: Other: Suprapubic tube in place, PEG tube in place Palpation (GI): Soft to palpation, not firm, nontender and no guarding Objective Data Active Medications Acetaminophen (Acetaminophen Supp 650 Mg Supp.Rect) 650 mg [place] Q6H PRN PRN Reason: Fever >100.4 Amitriptyline HCl (Amitriptyline Hcl 50 Mg Tablet) 100 mg G-TUBE BEDTIME [facility] Last Admin: 02/27/24 20:09 Dose: 100 mg Documented By: TAI Ascorbic Acid (Ascorbic Acid 500 Mg Tablet) 500 mg G-TUBE BID [facility] Last Admin: 02/28/24 09:51 Dose: 500 mg Documented By: ABI Atorvastatin Calcium (Atorvastatin Calcium 10 Mg Tablet) 10 mg G-TUBE BEDTIME [facility] Last Admin: 02/27/24 20:09 Dose: 10 mg Documented By: TAI Baclofen (Baclofen 20 Mg Tablet) 40 mg G-TUBE TID [facility] Last Admin: 02/28/24 09:51 Dose: 40 mg Documented By: ABI Bisacodyl (Bisacodyl 10 Mg Supp.Rect) 10 mg [place] DAILY PRN PRN Reason: constipation Enoxaparin Sodium (Enoxaparin Sodium 40 Mg/0.4 Ml Syringe) 40 mg SUBCUT Q24H [facility] Last Admin: 02/27/24 20:11 Dose: 40 mg Documented By: TAI Famotidine (Famotidine 20 Mg Tablet) 20 mg G-TUBE BID [facility] Last Admin: 02/28/24 09:52 Dose: 20 mg Documented By: ABI Gabapentin (Gabapentin 100 Mg Capsule) 200 mg G-TUBE TID [facility] Last Admin: 02/28/24 09:51 Dose: 200 mg Documented By: ABI Lactated Ringer's (Lr) 1,000 mls @ 125 mls/hr IVCONT .Q8H [facility] Last Admin: 02/28/24 10:30 Dose: Not Given Documented By: ABI Non-Admin Reason: IV Running Vancomycin HCl 1,250 mg/ (Sodium Chloride) 250 mls @ 166.667 mls/hr IV Q12H [facility] Last Infusion: 02/28/24 11:22 Dose: Infused Documented By: ABI Loratadine (Loratadine 10 Mg Tablet) 10 mg G-TUBE DAILY [facility] Last Admin: 02/28/24 09:52 Dose: 10 mg Documented By: ABI Meropenem (Meropenem 1 Gm Vial) 1 gm IVPUSH Q8H [facility] Last Admin: 02/28/24 13:29 Dose: 1 gm Documented By: ABI Metoprolol Tartrate (Metoprolol Tartrate 25 Mg Tablet) 25 mg G-TUBE BID [facility]; Protocol Last Admin: 02/28/24 09:51 Dose: 25 mg Documented By: ABI Pharmacy Consult (Consult Rx Vancomycin Dosing) 1 each MISCELLANE DAILY PRN PRN Reason: Consult order Phenytoin (Phenytoin Chewable 50 Mg Tab.Chew) 100 mg PO DAILY [facility] Last Admin: 02/28/24 09:51 Dose: 100 mg Documented By: ABI Polyethylene Glycol (Polyethylene Glycol 3350 17 Gm Powd.Pack) 17 gm G-TUBE DAILY [facility] Last Admin: 02/28/24 09:51 Dose: 17 gm Documented By: ABI Senna (Sennosides 8.6 Mg Tablet) 17.2 mg G-TUBE BID [facility] Last Admin: 02/28/24 09:51 Dose: 17.2 mg Documented By: ABI Sodium Chloride (0.9 % Sodium Chloride Flush 3 Ml Syringe) 3 ml IVFLUSH QSHIFT [facility] Last Admin: 02/28/24 08:16 Dose: 3 ml Documented By: ABI Labs 02/27/24 05:31 02/28/24 05:55 Labs: Laboratory Results - last 24 hr 02/28/24 05:55 Estim Creat Clear Calc 158.1 Estimated GFR > 60 Microbiology Microbiology Results: Microbiology 02/26/24 Unknown Urine Culture - Final Urine Other - Suprapubic 02/26/24 14:23 Blood Culture - Preliminary Blood - Venous Prelim: GPC Gram Stain only 02/26/24 14:23 Blood Culture - Preliminary Blood - Venous No growth after 24 hours. Procedures Date of Service Date of Service: 02/28/24 Progress Note: A&P Assessment and plan (1) Constipation: Status: Acute Assessment and Plan: Abdomen remained soft and benign No apparent tenderness Known UTI Okay to start feeds Care as per hospitalist service Bowel regimen for constipation Time Spent With Patient Time: Total time managing care of this patient today ____ minutes. Quality Stroke Does the patient have a stroke diagnosis?: No VTE Prior VTE?: No VTE Risk Level:: Medical - moderate - high VTE Device Contraindication: Treatment Not Indicated VTE Drug Contraindication: N/A - Med Ordered
[2024-02-28] MEDS: Acetaminophen Supp 650 MG SUPP.RECT PR (15:42)
[2024-02-28] MEDS: Lactulose 20 GM/30 ML SOLUTION G-TUBE (15:46)
--- NOTE | 2024-02-28 19:58 | HE.PHANOTE ---
SAM DOSE ADJUSTMENT NEXT LEVEL SET FOR 02/28 @ 0600
[2024-02-28] MEDS: Amitriptyline HCl 50 MG TABLET 100 MG G-TUBE (21:49)
[2024-02-28] MEDS: Atorvastatin Calcium 10 MG TABLET G-TUBE (21:51)
[2024-02-28] MEDS: Enoxaparin Sodium 40 MG/0.4 ML SYRINGE SUBCUT (22:23)
[2024-02-29 04:00] VITALS: BP 114/75; PULSE 60; RESP 18; TEMP 36.6; O2SAT 98
[2024-02-29] MEDS: Meropenem 1 GM VIAL IVPUSH ×3 (05:42→20:36)
[2024-02-29 06:17] LABS: Hematocrit 40.5 % (42.0-52.0); Mean Corpuscular HGB Conc 34.6 g/dl (31.0-36.0); Mean Corpuscular Hemoglobin 31.5 pg (27.0-33.0); Mean Platelet Volume 9.2 fL (9.4-12.4); Platelet Count 190 X10*3/uL (160-400); Red Blood Count 4.45 X10*6/uL (4.60-5.80); Red Cell Distribution Width 11.7 % (11.0-16.0); White Blood Count 6.9 X10*3/uL (4.8-10.8)
[2024-02-29 06:35] LABS: Vancomycin Random 12.6 mcg/mL (15-20)
[2024-02-29 06:45] LABS: Anion Gap 13 (12-20); Blood Urea Nitrogen 11 mg/dL (9-16); Calcium 9.1 mg/dL (8.4-10.2); Carbon Dioxide 25 mmol/L (22-29); Chloride 103 mmol/L (96-108); Creatinine Clr Calc Pharmacy 152.9; Estimated Glomerular Filt Rate > 60; Glucose Random 91 mg/dL (60-115); Potassium 3.8 mmol/L (3.3-5.1); Sodium 137 mmol/L (135-145)
[2024-02-29 07:01] LABS: Thyroid Stimulating Hormone 4.21 uIU/mL (0.32-4.0)
[2024-02-29 07:20] VITALS: BP 122/79; PULSE 104; RESP 18; TEMP 36.4; O2SAT 95
[2024-02-29] MEDS: Gabapentin 100 MG CAPSULE 200 MG G-TUBE ×3 (08:02→20:37)
[2024-02-29] MEDS: Loratadine 10 MG TABLET G-TUBE (08:02)
[2024-02-29] MEDS: Phenytoin Chewable 50 MG TAB.CHEW 100 MG PO (08:02)
[2024-02-29] MEDS: Sennosides 8.6 MG TABLET 17.2 MG G-TUBE ×2 (08:02→20:36)
[2024-02-29] MEDS: polyethylene glycoL 3350 17 GM POWD.PACK G-TUBE (08:03)
[2024-02-29] MEDS: Ascorbic Acid 500 MG TABLET G-TUBE ×2 (08:03→20:37)
[2024-02-29] MEDS: Famotidine 20 MG TABLET G-TUBE ×2 (08:03→20:37)
[2024-02-29] MEDS: 0.9 % Sodium Chloride Flush 3 ML SYRINGE IVFLUSH ×3 (08:03→20:37)
[2024-02-29] MEDS: Metoprolol Tartrate 25 MG TABLET G-TUBE ×2 (08:06→20:37)
[2024-02-29] MEDS: Baclofen 20 MG TABLET 40 MG G-TUBE ×3 (08:27→20:36)
--- NOTE | 2024-02-29 10:52 | MHC.CLN ---
Addendum entered by Laxmi Patrick, KINGA 02/29/24 10:56: PT TO USE OWN OSMOLITE 1.5 CARTONS BROUGHT IN FROM RETIREMENT THIS FACILITY ONLY HAS READY TO HANG PRODUCTS RETIREMENTPRECISION AIRCRAFT STRUCTURE ASSEMBLER AGREEABLE TO PLAN Original Note: F/U PT CURRENTLY NPO PER POISON INFORMATION SPECIALIST RECOMMEND RESUME BOLUS TF OSMOLITE 1.5 240ML X5 PER DAY WITH 240 ML FREE WATER FLUSHES TID PROVIDES 1800KCALS, 75G PROTEIN, 1634ML TOTAL WATER FROM FORMULA AND FLUSHES. VISITED WITH RETIREMENT CAREGIVER IN PT'S ROOM TODAY EXPLAINED TF TO GO BACK TO 5 CARTONS PER DAY R/T NPO STATUS AND NO LONGER TAKING PO PT WITH 25% SIGNIFICANT WT GAIN X 6 MONTHS WHILE RECEIVING PO PURRED DIET AND BOLUS TF THAT HAS NOT BEEN ADJUSTED WITH ONGOING WT GAIN AT RETIREMENT. DISCUSSED WITH RETIREMENTPRECISION AIRCRAFT STRUCTURE ASSEMBLER THAT IF PT RESUMES BY MOUTH INTAKE THEN RECOMMEND REDUCING BOLUS FEEDING TO OSMOLITE 1.5 TID (2 HOURS BEFORE OR AFTER MEALS) TO PROVIDE 1080KCALS, 45G PROTEIN, 549ML CONTINUE 240ML FREE WATER FLUSHES TID MONITOR TF TOLERANCE AND LYTES
[2024-02-29 11:16] VITALS: BP 116/80; PULSE 93; RESP 18; TEMP 36.3; O2SAT 95
--- NOTE | 2024-02-29 14:08 | P.PNIM_ITS ---
Subjective Subjective Date of Service: 02/29/24 Interval History: Unable to obtain history at baseline patient speak few words, at present patient is not communicating. No acute events overnight, vitals stable Tolerating G-tube feeds/NPO as per speech therapy recommendation Review of Systems Unable to obtain due to mental status Physical Exam 2 Vital Signs: Vital Signs: Last Vital Signs Temp 97.3 F 02/29/24 11:16 Pulse 93 02/29/24 11:16 Resp 18 02/29/24 11:16 BP 116/80 02/29/24 11:16 Pulse Ox 95 02/29/24 11:16 O2 Del Method Room Air 02/29/24 11:16 O2 Flow Rate 2 02/27/24 02:47 BMI result Body Mass Index 26.6 Const: Other: General resting comfortably in no acute distress. Neck no JVD. CVS regular rate rhythm, Respiratory no respiratory distress, no wheeze, no rhonchi. Gastrointestinal feeding tube in place, no distention, soft to palpation, bowel sounds audible, Extremities no edema. Neuro unable to communicate, unable to assess orientation, does not follow commands Objective Data Active Medications Acetaminophen (Acetaminophen Supp 650 Mg Supp.Rect) 650 mg [place] Q6H PRN PRN Reason: Fever >100.4 Last Admin: 02/28/24 15:42 Dose: 650 mg Documented By: ABI Amitriptyline HCl (Amitriptyline Hcl 50 Mg Tablet) 100 mg [facility]BE [facility] Last Admin: 02/28/24 21:49 Dose: 100 mg Documented By: FIDEL Ascorbic Acid (Ascorbic Acid 500 Mg Tablet) 500 mg G-TUBE BID [facility] Last Admin: 02/29/24 08:03 Dose: 500 mg Documented By: ORA Atorvastatin Calcium (Atorvastatin Calcium 10 Mg Tablet) 10 mg G-TUBE BEDTIME [facility] Last Admin: 02/28/24 21:51 Dose: 10 mg Documented By: FIDEL Baclofen (Baclofen 20 Mg Tablet) 40 mg G-TUBE TID [facility] Last Admin: 02/29/24 08:27 Dose: 40 mg Documented By: ORA Bisacodyl (Bisacodyl 10 Mg Supp.Rect) 10 mg [place] DAILY PRN PRN Reason: constipation Enoxaparin Sodium (Enoxaparin Sodium 40 Mg/0.4 Ml Syringe) 40 mg SUBCUT Q24H [facility] Last Admin: 02/28/24 22:23 Dose: 40 mg Documented By: FIDEL Famotidine (Famotidine 20 Mg Tablet) 20 mg G-TUBE BID [facility] Last Admin: 02/29/24 08:03 Dose: 20 mg Documented By: ORA Gabapentin (Gabapentin 100 Mg Capsule) 200 mg G-TUBE TID [facility] Last Admin: 02/29/24 08:02 Dose: 200 mg Documented By: ORA Loratadine (Loratadine 10 Mg Tablet) 10 mg G-TUBE DAILY [facility] Last Admin: 02/29/24 08:02 Dose: 10 mg Documented By: ORA Meropenem (Meropenem 1 Gm Vial) 1 gm IVPUSH Q8H [facility] Last Admin: 02/29/24 05:42 Dose: 1 gm Documented By: FIDEL Metoprolol Tartrate (Metoprolol Tartrate 25 Mg Tablet) 25 mg G-TUBE BID [facility]; Protocol Last Admin: 02/29/24 08:06 Dose: 25 mg Documented By: ORA Phenytoin (Phenytoin Chewable 50 Mg Tab.Chew) 100 mg PO DAILY [facility] Last Admin: 02/29/24 08:02 Dose: 100 mg Documented By: ORA Polyethylene Glycol (Polyethylene Glycol 3350 17 Gm Powd.Pack) 17 gm G-TUBE DAILY [facility] Last Admin: 02/29/24 08:03 Dose: 17 gm Documented By: ORA Senna (Sennosides 8.6 Mg Tablet) 17.2 mg G-TUBE BID [facility] Last Admin: 02/29/24 08:02 Dose: 17.2 mg Documented By: ORA Sodium Chloride (0.9 % Sodium Chloride Flush 3 Ml Syringe) 3 ml IVFLUSH QSHIFT [facility] Last Admin: 02/29/24 08:03 Dose: 3 ml Documented By: ORA Labs 02/29/24 06:07 02/29/24 06:07 Labs: Laboratory Results - last 24 hr 02/29/24 06:07 MCV 91.0 MCH 31.5 MCHC 34.6 RDW 11.7 Plt Count 190 MPV 9.2 L Absolute Nucleated RBC 0.000 Nucleated RBC % (auto) 0.0 Anion Gap 13 Estim Creat Clear Calc 152.9 Estimated GFR > 60 Random Glucose 91 Calcium 9.1 TSH 4.21 H Random Vancomycin 12.6 L Microbiology Microbiology Results: Microbiology 02/26/24 14:23 Blood Culture - Preliminary Blood - Venous No growth after 48 hours. 02/26/24 14:23 Blood Culture - Final Blood - Venous Coag negative Staphylococcus 02/26/24 Unknown Urine Culture - Final Urine Other - Suprapubic Assessment and Plan (1) Constipation: Status: Acute (2) Tachycardia: Status: Acute (3) Acute UTI: Status: Acute (4) Elevated WBC count: Status: Acute Plan 41-year-old male with a PMH significant for?MS?with severe cognitive and physical impairment, neurogenic bladder w/ suprapubic cathter, Gtube, depression, GERD, HLD, chronically bedboud/nonverbal, and hx of ESBL UTI who presents to the ED from half-way with lethargy found to have acute encephalopathy in the setting of UTI with sepsis. Acute toxic encephalopathy Initially felt due to sepsis from UTI Met sepsis criteria with fever, tachycardia, and leukocytosis; lactic acid WNL. afebrile, white count normalized, tachycardia resolved history of ESBL UTI - s/p IV vancomycin x 1 day now on IV meropenem , 1/2 blood culture positive for coagulase negative Staphylococcus , urine culture showed mixed genaro No other source of infection chest x-ray showed minimal bibasilar discoid atelectasis, CT abdomen and pelvis showed large amount of retained stool in the colon with associated dilatation and enlargement of sigmoid colon ID consult pending continue IV meropenem, follow with ID Sinus Tachycardia Resolved was Likely due to fever/acute illness; continue metoprolol low dose; overall HR improved, TSH 4.21 Prolonged QTc resolved on repeat EKG Constipation CT of abdomen and pelvis found large amount of retained stool with associated dilation of sigmoid colon abdominal exam benign seen by general surgery - continue bowel regimen and enemas, Constipation resolved Diet baseline Pureed diet with honey thick liquids via syringe Seen by speech therapy they recommend NPO , will educate half-way staff to keep people NPO tube feeding diet resumed. MS Continue baclofen, gabapentin, phenytoin bedbound/nonverbal at baseline - seems to be near baseline mental status HLD Continue statin Full Code DVT Prophylaxis: Lovenox Requires ongoing inpatient stay for management of UTI with sepsis in a patient with history of ESBL bacteremia. Requiring hospital level of care for administration of IV antibiotics, and close monitoring of labs, vitals, and mental status. Quality Stroke Does the patient have a stroke diagnosis?: No VTE Prior VTE?: No VTE Risk Level:: Medical - moderate - high VTE Device Contraindication: Treatment Not Indicated VTE Drug Contraindication: N/A - Med Ordered
--- NOTE | 2024-02-29 14:24 | P.CNID_ITS ---
History of Present Illness Data of Consult Service Date: 02/29/24 Requesting physician: Elvin Garcia Primary Care Provider: Emma Cross MD HPI Reason for consult: lethargy He presents from [facility] with lethargy and struggling to sleep. He felt warm and there was concern over UTI. He has suprapubic cath as well as gastro tube. He has MS. He is total care. He has suprapubic cath two weeks ago changed. He had Serratia 2022 urine. Now there is no bacteremia or positive culture. Review of Systems 2 Review of Systems: Yes Unobtainable due to mental condition PMFSH Past Medical History Medical History Constipation History of substance abuse Former smoker GERD (gastroesophageal reflux disease) HTN (hypertension) GI bleed Hepatitis B Anemia Afib Failure to thrive in adult Seizures Neuromyopathy UTI (urinary tract infection) Suprapubic catheter Hepatitis C Multiple sclerosis Family History Family history: reviewed and not pertinent Surgical History Surgical History Hx of cystoscopy Social History Social History Household Members: Other Household Members Other:: Intermediate Housing: Other Housing Other:: Intermediate Do you presently have visiting nurse or other home services: Yes Unable to assess alcohol history related to: Unable to respond Alcohol intake: never Comment: [facility] staff at bedside Patient Tobacco Use Status: Former Tobacco user Tobacco use type: Cigarette e-Cigarette/Vaping Use: Never Used Second Hand Smoke Exposure: No Advance Directives Date on File: 04/16/20 service: No Current occupational status: disabled Meds Allergies Allergy/AdvReac Type Severity Reaction Status Date / Time bee pollen [BEE STINGS] Allergy Severe Anaphylaxis Verified 02/26/24 14:18 Active Medications: Current Medications Acetaminophen (Acetaminophen Supp 650 Mg Supp.Rect) 650 mg CA Q6H PRN PRN Reason: Fever >100.4 Last Admin: 02/28/24 15:42 Dose: 650 mg Amitriptyline HCl (Amitriptyline Hcl 50 Mg Tablet) 100 mg G-TUBE BEDTIME LARA Last Admin: 02/28/24 21:49 Dose: 100 mg Ascorbic Acid (Ascorbic Acid 500 Mg Tablet) 500 mg G-TUBE BID [facility] [place] Last Admin: 02/29/24 08:03 Dose: 500 mg Atorvastatin Calcium (Atorvastatin Calcium 10 Mg Tablet) 10 mg G-TUBE BEDTIME [facility] Last Admin: 02/28/24 21:51 Dose: 10 mg Baclofen (Baclofen 20 Mg Tablet) 40 mg G-TUBE TID [facility] [place] Last Admin: 02/29/24 08:27 Dose: 40 mg Bisacodyl (Bisacodyl 10 Mg Supp.Rect) 10 mg CA DAILY PRN PRN Reason: constipation Enoxaparin Sodium (Enoxaparin Sodium 40 Mg/0.4 Ml Syringe) 40 mg SUBCUT Q24H [facility] [place] Last Admin: 02/28/24 22:23 Dose: 40 mg Famotidine (Famotidine 20 Mg Tablet) 20 mg G-TUBE BID [facility] [place] Last Admin: 02/29/24 08:03 Dose: 20 mg Gabapentin (Gabapentin 100 Mg Capsule) 200 mg G-TUBE TID [facility] [place] Last Admin: 02/29/24 08:02 Dose: 200 mg Loratadine (Loratadine 10 Mg Tablet) 10 mg G-TUBE DAILY [facility] [place] Last Admin: 02/29/24 08:02 Dose: 10 mg Meropenem (Meropenem 1 Gm Vial) 1 gm IVPUSH Q8H [facility] [place] Last Admin: 02/29/24 05:42 Dose: 1 gm Metoprolol Tartrate (Metoprolol Tartrate 25 Mg Tablet) 25 mg G-TUBE BID [facility] [place]; Protocol Last Admin: 02/29/24 08:06 Dose: 25 mg Phenytoin (Phenytoin Chewable 50 Mg Tab.Chew) 100 mg PO DAILY [facility] [place] Last Admin: 02/29/24 08:02 Dose: 100 mg Polyethylene Glycol (Polyethylene Glycol 3350 17 Gm Powd.Pack) 17 gm G-TUBE DAILY [facility] [place] Last Admin: 02/29/24 08:03 Dose: 17 gm Senna (Sennosides 8.6 Mg Tablet) 17.2 mg G-TUBE BID [facility] [place] [place] Last Admin: 02/29/24 08:02 Dose: 17.2 mg Sodium Chloride (0.9 % Sodium Chloride Flush 3 Ml Syringe) 3 ml IVFLUSH QSHIFT [facility] Last Admin: 02/29/24 08:03 Dose: 3 ml Home Medications ?Medication ?Instructions ?Recorded ?Confirmed ?Last Taken ?Type alpha lipoic acid 600 mg tablet 600 mg PO BID 08/29/22 02/27/24 08/29/23 20:00 History fluticasone propionate 50 1 spray intranasal Q4H PRN 01/21/23 02/27/24 08/29/23 20:00 History mcg/actuation nasal Congestion spray,suspension sodium phosphates 19 gram-7 118 ml CA DAILY PRN BM 08/30/23 02/27/24 Unknown History gram/118 mL enema (Fleet Enema) doxycycline monohydrate 100 mg 100 mg feeding tube BID PRN 02/27/24 02/27/24 Unknown History tablet CATHETER CHANGE epinephrine 0.3 mg/0.3 mL 0.3 mg IM Q15M PRN Anaphylaxis 02/27/24 02/27/24 Unknown History injection, auto-injector gabapentin 100 mg capsule 200 mg PO TID 02/27/24 02/27/24 Unknown History polyethylene glycol 3350 17 17 g feeding tube DAILY 02/27/24 02/27/24 Unknown History gram/dose oral powder Physical Exam 2 Vital Signs: Vital Signs: Last Vital Signs Temp 97.3 F 02/29/24 11:16 Pulse 93 02/29/24 11:16 Resp 18 02/29/24 11:16 BP 116/80 02/29/24 11:16 Pulse Ox 95 02/29/24 11:16 O2 Del Method Room Air 02/29/24 11:16 O2 Flow Rate 2 02/27/24 02:47 BMI result Body Mass Index 26.6 Const: General: cooperative HEENT: Head: Yes normal to inspection Face and sinus: Yes normal facial exam Mouth: Normal oral and palatal mucosa present Teeth and gingiva: d entition normal Eyes: General: appearance normal, both eyes and all related structures P upils: Equal, round and reactive pupils present Resp: Effort & Inspection: normal respiratory effort Cardio: Rate: regular rate Rhythm: regular rhythm GI: Palpation (GI): Soft to palpation and nontender : General: Yes no CVA tenderness Back/Spine/Pelvis: Back: no CVA tenderness Skin: General skin exam: no rashes or lesions noted Neuro: General: moves all extremities Cranial nerves: Yes Equal, round and reactive pupils present Extrem: General: Yes normal to inspection Psych: Other: doesnt communicate easily Results Labs 02/29/24 06:07 02/29/24 06:07 Labs: Short CBC 02/29/24 Range/Units 06:07 WBC 6.9 (4.8-10.8) X10*3/uL Hgb 14.0 (14.0-18.0) g/dl Hct 40.5 L (42.0-52.0) % Plt Count 190 (160-400) X10*3/uL BMP 02/29/24 06:07 Sodium 137 Potassium 3.8 Chloride 103 Carbon Dioxide 25 BUN 11 Creatinine 0.61 Calcium 9.1 Microbiology Microbiology Results: Microbiology 02/26/24 14:23 Blood - Venous Blood Culture - Preliminary No growth after 48 hours. 02/26/24 14:23 Blood - Venous Blood Culture - Final Coag negative Staphylococcus 02/26/24 Unknown Urine Other - Suprapubic Urine Culture - Final Assessment and Plan (1) Constipation: Status: Acute (2) Tachycardia: Status: Acute (3) Acute UTI: Status: Acute (4) Elevated WBC count: Qualifiers: Leukocytosis type: unspecified Qualified Code(s): D72.829 - Elevated white blood cell count, unspecified Status: Acute Plan No specific organism. Probable levaquin and Augmentin 14 d outpatient.
[2024-02-29 15:30] VITALS: BP 122/79; PULSE 98; RESP 18; TEMP 36.6; O2SAT 98
--- NOTE | 2024-02-29 17:02 | MHC.SLORD ---
Speech Language Pathology Order Status: RIDING SILKS CUSTODIAN spoke with oracle manager. She confirms that they have been providing him Puree Solids and Honey-Thick Liquids via syringe. She was seen by an RIDING SILKS CUSTODIAN who approved of this method without an instrumental evaluation of swallowing. She also added that his swallowing ability decreases when he is fighting an infection, and that they had not been feeding him the days prior to admission. Given this information she agreed that he should remain NPO at this time, and will re-assess after discharge.
[2024-02-29] MEDS: Enoxaparin Sodium 40 MG/0.4 ML SYRINGE SUBCUT (18:03)
[2024-02-29 19:12] VITALS: BP 118/77; PULSE 106; RESP 18; TEMP 36.2; O2SAT 95
[2024-02-29] MEDS: Amitriptyline HCl 50 MG TABLET 100 MG G-TUBE (20:36)
[2024-02-29] MEDS: Atorvastatin Calcium 10 MG TABLET G-TUBE (20:37)
[2024-02-29 23:52] VITALS: BP 128/84; PULSE 88; RESP 18; TEMP 36.4; O2SAT 93
[2024-03-01 03:50] VITALS: BP 112/74; PULSE 106; RESP 20; TEMP 36.9; O2SAT 98
[2024-03-01] MEDS: Meropenem 1 GM VIAL IVPUSH (05:17)
[2024-03-01 06:52] LABS: Creatinine Clr Calc Pharmacy 169.6; Estimated Glomerular Filt Rate > 60
[2024-03-01 07:25] VITALS: BP 109/80; PULSE 102; RESP 18; TEMP 36.7; O2SAT 96
--- NOTE | 2024-03-01 09:52 | MHC.CLN ---
F/U PT TO REMAIN NPO PER ELECTRICAL MAINTENANCE ENGINEER WHEN PT IS NPO; RECOMMEND BOLUS TF OSMOLITE 1.5 240ML X5 PER DAY WITH 240 ML FREE WATER FLUSHES Q 4HR PROVIDES 1800KCALS (22KCALS/KG), 75G PROTEIN (.9G/KG), 2354ML TOTAL WATER FROM FORMULA AND FLUSHES (29ML/KG). SPOKE WITH [facility] CAREGIVER IN PT'S ROOM ON 02/27 & 02/28: EXPLAINED TF TO GO BACK TO 5 CARTONS PER DAY R/T NPO STATUS AND NO LONGER TAKING PO. NOTED PT WITH 25% SIGNIFICANT WT GAIN X 6 MONTHS WHILE RECEIVING PO PURRED DIET AND BOLUS TF THAT HAS NOT BEEN ADJUSTED WITH ONGOING WT GAIN AT [facility]. DISCUSSED WITH [facility] WEB ENGINEER THAT IF PT RESUMES BY MOUTH INTAKE AFTER D/C THEN RECOMMEND REDUCING BOLUS FEEDING TO OSMOLITE 1.5 TID (2 HOURS BEFORE OR AFTER MEALS) TO PROVIDE 1080KCALS, 45G PROTEIN, 549ML CONTINUE 240ML FREE WATER FLUSHES TID PT TO USE OWN OSMOLITE 1.5 CARTONS BROUGHT IN FROM [facility] DURING IN PT STAY THIS FACILITY ONLY HAS READY TO HANG PRODUCTS [facility]IOR WEB ENGINEER AGREEABLE TO PLAN CONTINUE TO MONITOR TF TOLERANCE AND LYTES
[2024-03-01] MEDS: Ascorbic Acid 500 MG TABLET G-TUBE (10:25)
[2024-03-01] MEDS: polyethylene glycoL 3350 17 GM POWD.PACK G-TUBE (10:25)
[2024-03-01] MEDS: Metoprolol Tartrate 25 MG TABLET G-TUBE (10:26)
[2024-03-01] MEDS: Loratadine 10 MG TABLET G-TUBE (10:26)
[2024-03-01] MEDS: Phenytoin Chewable 50 MG TAB.CHEW 100 MG PO (10:26)
[2024-03-01] MEDS: Famotidine 20 MG TABLET G-TUBE (10:26)
[2024-03-01] MEDS: Sennosides 8.6 MG TABLET 17.2 MG G-TUBE (10:26)
[2024-03-01] MEDS: Gabapentin 100 MG CAPSULE 200 MG G-TUBE (10:30)
[2024-03-01] MEDS: Baclofen 20 MG TABLET 40 MG G-TUBE (10:44)
[2024-03-01] MEDS: 0.9 % Sodium Chloride Flush 3 ML SYRINGE IVFLUSH (10:44)
[2024-03-01 11:10] VITALS: BP 108/77; PULSE 99; RESP 16; TEMP 36.8; O2SAT 96
--- NOTE | 2024-03-01 12:13 | P.DS_ITS ---
DS: Providers Provider Date of Service: 03/01/24 Date of admission: 02/26/24 18:42 Date of discharge: 03/01/24 Primary care physician: Emma Cross MD Consults: 02/26/24 18:24 Consult to Infectious Diseases Routine Consulting [place] [facility] [place] [facility] Reason for consultation: Hx of ESBL UTI 02/26/24 18:34 Consult to General Surgery Routine Consulting Provider: [facility] [place] [facility] Reason for consultation: Constipation, increased sigmoid dilatation 02/27/24 18:08 Consult to Wound Care Routine Reason for consultation: healed coccyx wound Has provider been notified: Yes DS: Diagnosis Discharge Diagnosis (1) Constipation: Status: Acute (2) Tachycardia: Status: Acute (3) Acute UTI: Status: Acute (4) Elevated WBC count: Status: Acute DS: Summary Hospital Course Hospital Course: History of presenting illness: Date of Service: 02/26/24 Attending physician on admission: Lakia Deleon Chief Complaint: Lethargic, fever Pt is a 41-year-old male with a PMH significant for?MS?with severe cognitive and physical impairment, neurogenic bladder w/suprapubic cathter in place, depression, GERD, HLD, gastrotomy in place, chronically bedboud, and hx of ESBL UTI who presents to the ED from alf for concern for UTI as patient has had increased lethargy and responsive only to painful stimuli since this morning. Staff also noted patient to be febrile, tachycardic, and hypertensive. Patient normally is able to speak a few words but has been nonverbal since last night. In the ED pt was febrile up to 102.3 and tachycardic up to 156. Labs were significant for leukocytosis 17.5, sodium 134, ALT 48, and alk-phos 121. Stable H&H. Renal function WNL. UA positive for UTI. Tested negative for flu, COVID, RSV.CXR showed minimal bibasilar discoid atelectasis. CT?of abdomen and pelvis showed large amount of retained stool in the colon with associated dilation of sigmoid colon, increased from prior. EKG demonstrated sinus tachycardia of 148 with QTc of 543. Pt was treated with 2.5L IVF, acetaminophen, Mag sulfate, and meropenem. Pt will be admitted to the hospital for treatment and further evaluation of acute encephalopathy in the setting of UTI with sepsis. Hospital course: 41-year-old male with a PMH significant for?MS?with severe cognitive and physical impairment, neurogenic bladder w/ suprapubic cathter, Gtube, depression, GERD, HLD, chronically bedboud/nonverbal, and hx of ESBL UTI who presents to the ED from alf with lethargy found to have acute encephalopathy Acute toxic encephalopathy Initially felt due to sepsis from UTI ,Met sepsis criteria with fever, tachycardia, and leukocytosis; lactic acid WNL, treated with IV meropenem due to history of ESBL UTI 1/2 blood culture positive for coagulase negative Staphylococcus , urine culture showed mixed genaro ,No source of infection found, chest x-ray showed minimal bibasilar discoid atelectasis, CT abdomen and pelvis showed large amount of retained stool in the colon with associated dilatation and enlargement of sigmoid colon, treated with stool softeners good result, patient evaluated by Infectious Disease Dr. Centeno recommend by mouth Levaquin and Augmentin for 14 days to treat underlying infection , no specific organism found. Sinus Tachycardia Resolved was Likely due to fever/acute illness; continue metoprolol low dose; overall HR improved, TSH 4.21 Prolonged QTc resolved on repeat EKG Constipation CT of abdomen and pelvis found large amount of retained stool with associated dilation of sigmoid colon, abdominal exam benign , continue bowel regimen constipation resolved. Diet baseline Pureed diet with honey thick liquids via syringe, Seen by speech therapy they recommend NPO , continue tube feedings, outpatient follow-up with speech therapy. MS Continue baclofen, gabapentin, phenytoin ,bedbound/nonverbal at baseline - seems to be near baseline mental status as per alf staff. HLD Continue statin Time Attestation Discharge Coordination Time (in mins): 40 Quality: Safe Use of Opioids Does Pt have an Active Cancer Diagnosis on the Problem List?: No Quality: Stroke Does the patient have a stroke diagnosis?: No Physical Exam Vital Signs: Vital Signs: Last Vital Signs Temp 98.3 F 03/01/24 11:10 Pulse 99 03/01/24 11:10 Resp 16 03/01/24 11:10 BP 108/77 03/01/24 11:10 Pulse Ox 96 03/01/24 11:10 O2 Del Method Room Air 03/01/24 11:10 O2 Flow Rate 2 02/27/24 02:47 BMI result Body Mass Index 26.6 Const: Other: General resting comfortably in no acute distress. Neck no JVD. CVS regular rate rhythm, Respiratory no respiratory distress, no wheeze, no rhonchi. Gastrointestinal feeding tube in place, no distention, soft to palpation, bowel sounds audible, Extremities no edema. Neuro unable to communicate, unable to assess orientation, does not follow commands DS: Data Data Completed and Pending Completed studies during hospitalization [Text1]: Procedures Insertion of Infusion Device into Upper Vein, Percutaneous Approach (08/29/22) Labs on day of discharge: Laboratory Results - last 24 hr 03/01/24 06:01 Creatinine 0.55 Estim Creat Clear Calc 169.6 Estimated GFR > 60 Preliminary micro results at discharge 02/26/24 14:23 Blood Culture - Preliminary Blood - Venous No growth after 48 hours. Discharge Plan Discharge Anticipated Discharge Date/Time: 03/01/24 11:17 Patient Disposition: Home, Self-Care Discharge Diagnosis: Acute toxic encephalopathy Fever Sinus tachycardia Constipation Referrals: [facility] [Outside] - 1 Week Emma Cross MD [Primary Care Provider] - 1 Week Discharge Medications: New levofloxacin 500 mg tablet 500 mg PO DAILY 14 Days Qty: 14 0RF amoxicillin-pot clavulanate 875-125 mg tablet 1 tab PO Q12H Qty: 28 0RF Continued alpha lipoic acid 600 mg Tablet 600 mg PO BID fluticasone propionate 50 mcg/actuation Artesian,Suspension 1 spray INTRANASAL Q4H PRN (Reason: Congestion) Rx Instructions: administer into each nostril bisacodyl [Dulcolax (bisacodyl)] 10 mg suppository 10 mg MS DAILY PRN (Reason: constipation) Qty: 12 0RF Rx Instructions: If no BM in 3 days. gabapentin 100 mg capsule 200 mg PO TID epinephrine 0.3 mg/0.3 mL Auto-Injector 0.3 mg IM Q15M PRN (Reason: Anaphylaxis) Rx Instructions: for 2 doses polyethylene glycol 3350 17 gram/dose powder 17 g feeding tube DAILY Fleet Enema 19-7 gram/118 mL Enema 118 ml MS DAILY PRN (Reason: BM) Rx Instructions: If no BM in 3 days acetaminophen 325 mg Tablet 650 mg feeding tube Q8H PRN (Reason: Fever Or Pain) Qty: 30 0RF atorvastatin 10 mg tablet 10 mg feeding tube BEDTIME Qty: 30 0RF methenamine hippurate 1 gram tablet 1 g feeding tube DAILY 90 Days Qty: 90 3RF famotidine 20 mg Tablet 20 mg feeding tube BID Qty: 30 0RF magnesium hydroxide [Milk of Magnesia] 400 mg/5 mL Suspension 30 ml feeding tube DAILY PRN (Reason: Constipation) Qty: 355 0RF ascorbic acid (vitamin C) [Vitamin C] 500 mg tablet 500 mg feeding tube BID 90 Days Qty: 180 1RF baclofen 10 mg tablet 40 mg feeding tube TID Qty: 30 0RF amitriptyline 100 mg Tablet 100 mg feeding tube BEDTIME Qty: 30 0RF loratadine 10 mg tablet 10 mg feeding tube DAILY Qty: 30 0RF senna 8.6 mg Capsule 17.2 mg feeding tube BID Qty: 30 0RF melatonin 5 mg tablet 5 mg feeding tube BEDTIME Qty: 30 0RF metoprolol tartrate 25 mg Tablet 25 mg G-tube BID Qty: 60 0RF Protocol: Hold for SBP/HR < HOLD for SBP < : 90 HOLD for HR < : 60 phenytoin 50 mg tablet,chewable 100 mg G-tube DAILY Qty: 30 0RF Discontinued doxycycline monohydrate 100 mg tablet 100 mg feeding tube BID PRN (Reason: CATHETER CHANGE) Rx Instructions: 100 mg PO On day of catheter change; 1 tab before cath change and 1 tab after cath change; Discharge Orders: Discharge Order (Routine); Ordered 03/01/24 Ordered By: Elvin Garcia Diet: g tube feedings Activity on Discharge: As tolerated Stand Alone Forms: Patient Portal Discharge page Print Language: French Care Plan Goals: Take Augmentin 1 tablet twice daily for 14 days Take Levaquin 1 tablet once daily for 14 days Patient to remain NPO as per speech language pathologist Resume all home medications as before. Health Concerns: WHEN PT IS NPO; RECOMMEND BOLUS TF OSMOLITE 1.5 240ML X5 PER DAY WITH 240 ML FREE WATER FLUSHES Q 4HR PROVIDES 1800KCALS (22KCALS/KG), 75G PROTEIN (.9G/KG), 2354ML TOTAL WATER FROM FORMULA AND FLUSHES (29ML/KG). SPOKE WITH ASSISTED CAREGIVER IN PT'S ROOM ON 02/27 & 02/28: EXPLAINED TF TO GO BACK TO 5 CARTONS PER DAY R/T NPO STATUS AND NO LONGER TAKING PO. NOTED PT WITH 25% SIGNIFICANT WT GAIN X 6 MONTHS WHILE RECEIVING PO PURRED DIET AND BOLUS TF THAT HAS NOT BEEN ADJUSTED WITH ONGOING WT GAIN AT ASSISTED. DISCUSSED WITH ASSISTEDMULTIMEDIA PRODUCER THAT IF PT RESUMES BY MOUTH INTAKE AFTER D/C THEN RECOMMEND REDUCING BOLUS FEEDING TO OSMOLITE 1.5 TID (2 HOURS BEFORE OR AFTER MEALS) TO PROVIDE 1080KCALS, 45G PROTEIN, 549ML CONTINUE 240ML FREE WATER FLUSHES TID PT TO USE OWN OSMOLITE 1.5 CARTONS BROUGHT IN FROM ASSISTED DURING IN PT STAY THIS FACILITY ONLY HAS READY TO HANG PRODUCTS ASSISTEDMULTIMEDIA PRODUCER AGREEABLE TO PLAN CONTINUE TO MONITOR TF TOLERANCE AND LYTES Plan of Treatment: Outpatient follow-up with primary care physician call for appointment Assessment: As above
--- NOTE | 2024-03-01 12:23 | MHC.CM.PN ---
Pt is medically cleared for discharge back to his half-way today, pt will transport there via BLS/[facility] today. Discharge coordinated with the half-way, and pts mother/HCP Reyna was called and notified of discharge.
== END 2024-03-01 16:25 | disposition home or self-care (01) | DRG 52 ==
LOC: HO.ED 16:32 → HO.EDOVER 18:44 → HO.IMC 02-27 07:38
PROVIDERS: Emergency Medicine; Physician Assistant Medical; Admitting Provider Student in an Organized Health Care Education/Training Program; Emergency Provider Emergency Medicine; PCP Internal Medicine; Visit Provider Hospitalist
DX: G92.8 Other toxic encephalopathy (principal); Z93.50 Unspecified cystostomy status; G35 Multiple sclerosis; E78.5 Hyperlipidemia, unspecified; J98.11 Atelectasis; R94.31 Abnormal electrocardiogram [ECG] [EKG]; N31.9 Neuromuscular dysfunction of bladder, unspecified; K59.09 Other constipation; Z20.822 Contact with and (suspected) exposure to COVID-19; Z74.01 Bed confinement status; Z93.1 Gastrostomy status; Z87.891 Personal history of nicotine dependence; Z87.440 Personal history of urinary (tract) infections; Z79.899 Other long term (current) drug therapy
CPT/HCPCS: 0241U; 36415; 71045; 74177; 80048; 80076; 80202; 81001; 81003; 82565; 83605; 83690; 83735; 83880; 84443; 84484; 85025; 85027; 87040; 87086; 87147; 87205; 92610; 93005; 99285; J0131; J1650; J2185; J3370; J3371; J3475; J7120; Q9967

== ENCOUNTER → 2024-02-26 14:14 | Outpatient (BNV) | payer OTHER, SELFPAY | PROVIDERS: Admitting Provider Student in an Organized Health Care Education/Training Program; Emergency Provider Emergency Medicine; PCP Internal Medicine; Visit Provider Internal Medicine Cardiovascular Disease | DX: R00.0 Tachycardia, unspecified (principal) | CPT/HCPCS: 93010 ==

== ENCOUNTER → 2024-02-26 18:42 | Outpatient (BNV) | payer OTHER, SELFPAY | PROVIDERS: Admitting Provider Student in an Organized Health Care Education/Training Program; Emergency Provider Emergency Medicine; PCP Internal Medicine; Visit Provider Internal Medicine | DX: K59.00 Constipation, unspecified (principal); R00.0 Tachycardia, unspecified; N39.0 Urinary tract infection, site not specified; D72.829 Elevated white blood cell count, unspecified | CPT/HCPCS: 99499 ==

== ENCOUNTER → 2024-02-26 18:42 | Outpatient (BNV) | payer OTHER, SELFPAY | PROVIDERS: Admitting Provider Student in an Organized Health Care Education/Training Program; Emergency Provider Emergency Medicine; PCP Internal Medicine; Visit Provider Student in an Organized Health Care Education/Training Program | DX: K59.00 Constipation, unspecified (principal); R00.0 Tachycardia, unspecified; N39.0 Urinary tract infection, site not specified; D72.829 Elevated white blood cell count, unspecified | CPT/HCPCS: 99223; 99232; 99239 ==

== ENCOUNTER → 2024-02-26 18:42 | Outpatient (BNV) | payer OTHER, SELFPAY | PROVIDERS: Admitting Provider Student in an Organized Health Care Education/Training Program; Emergency Provider Emergency Medicine; PCP Internal Medicine; Visit Provider Surgery | DX: K59.00 Constipation, unspecified (principal) | CPT/HCPCS: 99222 ==

== ENCOUNTER 2024-04-13 10:42 | Outpatient (AMB) | payer OTHER, SELFPAY ==
--- NOTE | 2024-04-13 10:46 | MHC.OFFVIS ---
Vital Signs 04/13/24 11:08 Height 6 ft 1 in Weight 171 lb BMI 22.6 BP 128/90 H Blood Pressure Location Lt brachial Position Sitting Pulse 88 Pulse Oximetry (%) 97 Oxygen Delivery Method Room Air Intake Visit Reasons: Chronic Constipation Intake Note: Patient follow up for chronic constipation. Patient cc:abdominal discomfort with bloating due the amount of liquid that he intake daily, he was order lab work [place] 10/2023 and was not done. Denies any other GI issues for today. Electromechanical Technician Required: No Accompanied by: Family/Other Allergies bee pollen [BEE STINGS] Allergy (Severe, Verified 04/13/24 11:04) Anaphylaxis Medication List - Last Reconciled 04/13/24 by Raj Myers MD acetaminophen 650 mg (2 x 325 mg) feeding tube Q8H PRN alpha lipoic acid 600 mg PO BID amitriptyline 100 mg feeding tube BEDTIME ascorbic acid (vitamin C) (Vitamin C) 500 mg feeding tube BID 90 days atorvastatin 10 mg feeding tube BEDTIME baclofen 40 mg (4 x 10 mg) feeding tube TID bisacodyl (Dulcolax (bisacodyl)) 10 mg [place] DAILY PRN doxycycline hyclate 100 mg IV Q12H epinephrine 0.3 mg IM Q15M PRN famotidine 20 mg feeding tube BID fluticasone propionate 50 mcg/actuation 1 spray intranasal Q4H PRN gabapentin 200 mg PO TID ketoconazole 2% 1 appl topical BID loratadine 10 mg feeding tube DAILY magnesium hydroxide (Milk of Magnesia) 30 mL feeding tube DAILY PRN melatonin 5 mg feeding tube BEDTIME methenamine hippurate 1 g feeding tube DAILY 90 days metoprolol tartrate 25 mg See Protocol G-tube BID phenytoin 100 mg (2 x 50 mg) G-tube DAILY polyethylene glycol 3350 17 grams feeding tube DAILY sennosides (senna) 17.2 mg (2 x 8.6 mg) feeding tube BID sodium phosphates 19-7 gram/118 mL (Fleet Enema) 118 mL [place] DAILY PRN triamcinolone acetonide 0.025% 1 appl topical BID HPI HPI Chronic Constipation: Details: GI clinic visit for this 43 YM with multiple sclerosis with cognitive and physical impairment, neurogenic bladder status post suprapubic catheter, mood disorder, essential hypertension, hepatitis-C, mixed hyperlipidemia for FU after PEG tube placement on 08/30/23. TODAY'S VISIT: Patient follow up for chronic constipation and PEG tube. Tube feedings are going well - has gained 20 lbs over the past 6 months Continues to have PO diet as well. Abdomen has been bloated. 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 Wt improved from 130 to 151 lbs PEG tube feedings are going well - Osmolite 1.5 Formula 1 container (237 ml) 5 times a day bolus feeding - 6 am, 10 am, 2 pm, 7 pm and 10 pm Tube feeding orders per Yady Chase, RDN: EEN 1647 kcal for wt maintainence at 145 lbs (wt is at low end of ideal for ht and age) EEN for wt gain 1976 - 2146 Kcal - current tube feedings providing 1980 kcal/day Flush with 30 ml of water before and after each feeding Flush 120 ml of water prior to each feeding at 8 am, 12 pm and 5 pm. At least 2 hour intervals before and after meals Check residual before each feedings and hold for residuals > 50 cc - recheck after 1 hour Pt is also given a Pureed diet with honey thick liquids in addition to his tube feedings at 8 am, 12 noon and 5 pm Free water 1745 ml via G tube and 240 ml (8 oz) by mouth Pt is wheel chair bound and non verbal. Pt's Mom is his HCP. He is accompanied by Lexie assistant center manager at the [facility] (moved there in June,) who provided the history Pt is on a Pureed, honey thick diet for the past 2 yrs. Wt decreased from 165 to 130 lbs 3rd swallowing evaluation at [facility] - advised to continue same diet. Since last hospitalization Medications are crushed and given in apple sauce Pt has chronic constipation and has a bowel regimen: Miralax, colace and senna twice a day MOM if no BM in 2 days Patient denies major cardiac or pulmonary problems, loud snoring or sleep apnea Recent labs by PCP were normal. Denies being on chronic anticoagulation. Patient denies known family history of colon polyps, colon cancer or other GI malignancies. Pt was hospitalized at [facility] from 08/30/23 to 09/01/23: Hospital Course: 42-year-old male with pertinent history of multiple sclerosis with cognitive and physical impairment, neurogenic bladder status post suprapubic catheter, mood disorder, essential hypertension, hepatitis-C, mixed hyperlipidemia admitted to [facility] for PEG tube placement by GastroenterologY. Patient subsequently admitted to medical floor, treated with IV fluids, and started on G-tube feedings that he is tolerating well without nausea vomiting or high residuals therefore being discharged back to [facility] with home infusion company for continued feedings, all home medications has been transitioned through G-tube, Toprol-XL discontinued and replaced by metoprolol tartrate 25 mg b.i.d. Hypertension : BP stable , mild chronic tachycardia, continue metoprolol 25 mg b.i.d. via PEG tube hx mutiple sclerosis : Resume all home medications via PEG tube, continue supportive care Pt was hospitalizecd at [facility] from 01/21 to 01/24/23 for lethargy and confusion: 42-year-old male sent to the emergency department from [facility]. Staff at [facility] noticed change in order from suprapubic catheter. Unable to obtain any history from the patient. Does have a history of frequent UTI. The taste tester at [facility] also concern for choking/coughing with p.o. intake. Patient is on a pureed diet with thickened liquids at baseline. Unable to obtain review of systems. In the emergency department, urine was concerning for UTI and patient was initiated on empiric IV antibiotics. hospital course: Patient was admitted for acute metabolic encephalopathy due to suprapubic catheter associated urinary tract infection. He was initially treated with IV ceftriaxone and mental status returned to baseline. Culture grew Serratia that was resistant to ceftriaxone therefore, discharge he will be given 7 more days of p.o. Bactrim. Patient is back to baseline. For his dysphagia he was seen by PETROLEUM REFINERY OPERATOR who recommended pureed solids and honey thick liquids. For history of MS use continue baclofen. For her hyperlipidemia is continue on statin. Patient is now medically stable be discharged home. LABS IN [facility] : Reviewed IMAGING STUDIES: FEB [address] SCAN SHOWED: August, ABD CT SCAN SHOWED: 1. No hydronephrosis is present. 2. No renal calculi are seen. 3. Suprapubic cystostomy tube in place. 4. Large stool burden in the rectosigmoid. 5. Incidental note made of benign hepatic cysts, bibasilar atelectasis and other findings described above. ENDOSCOPIC STUDIES: EGD with uneventful PEG tube placement on 08/30/23 [facility] Medical History Constipation History of substance abuse Former smoker GERD (gastroesophageal reflux disease) HTN (hypertension) GI bleed Hepatitis B Anemia Afib Failure to thrive in adult Seizures Neuromyopathy UTI (urinary tract infection) Suprapubic catheter Hepatitis C Multiple sclerosis Surgical History Hx of cystoscopy Social History Household Members: Other Household Members Other:: [facility] Housing: Other Housing Other:: [facility] Do you presently have visiting nurse or other home services: Yes Unable to assess alcohol history related to: Unable to respond Alcohol intake: never Comment: [facility] staff at bedside Patient Tobacco Use Status: Former Tobacco user Tobacco use type: Cigarette e-Cigarette/Vaping Use: Never Used Second Hand Smoke Exposure: No Advance Directives Date on File: 04/16/20 service: No Current occupational status: disabled Review of Systems Const All systems reviewed & are unremarkable except as noted in HPI and below Physical Exam Vital Signs: Last Vital Signs Pulse 88 04/13/24 11:08 BP 128/90 H 04/13/24 11:08 Pulse Ox 97 04/13/24 11:08 Oxygen Delivery Method Room Air 04/13/24 11:08 BMI result Body Mass Index 22.6 Const General: no acute distress Nutritional Appearance: average body habitus Orientation/consciousness: Other orientation findings (non-verbal) Limitations: wheelchair HEENT Head: Yes normal to inspection Ears: hearing grossly normal bilaterally Eyes Sclerae: sclerae normal Neck Neck: Yes normal visual inspection Chest Chest palpation & inspection: normal inspection of the chest Resp Effort & Inspection: normal respiratory effort Auscultation: clear to auscultation bilaterally Cardio Palpation: normal PMI Rate: regular rate Rhythm: regular rhythm Heart sounds: S1 normal heart sound present, S2 normal heart sound present and no murmurs GI Inspection: Yes G-tube present Palpation (GI): Soft to palpation, nontender and No hepatosplenomegaly present Auscultation: normal bowel sounds Rectal Exam - Male: Yes deferred Skin General skin exam: no rashes or lesions noted Neuro General: other (Non -verbal and wheelchair bound) Psych Appearance: well kempt Mental Status: other (non-verbal) Assessment & Plan Assessment & Plan (1) Hepatitis C: Code(s): B19.20 - Unspecified viral hepatitis C without hepatic coma Category: Medical (2) Dysphagia: Code(s): R13.10 - Dysphagia, unspecified Category: Medical (3) Chronic constipation: Code(s): K59.09 - Other constipation Category: Medical (4) Gastrostomy status: Code(s): Z93.1 - Gastrostomy status Category: Surgical Plan 43 YM with multiple sclerosis with cognitive and physical impairment, neurogenic bladder status post suprapubic catheter, mood disorder, essential hypertension, hepatitis-C, mixed hyperlipidemia seen for FU after PEG tube placement on 08/30/23 Pt is wheel chair bound and non verbal. Pt was seen by PETROLEUM REFINERY OPERATOR who recommended pureed solids and honey thick liquids. 3rd swallowing evaluation at [facility] - advised to continue same diet. Pt has been on above diet for the past 2 yrs. Wt decreased from 165 to 130 lbs NUTRITION WHEN ABLE, RECOMMEND OSMOLITE 1.5 AT MAX GOAL RATE 55 ML PER HOUR, FREE WATER FLUSHES 240 ML Q6 HOURS. PROVIDES 1980 KCALS (28.3 KCALS/KG), 82.8 G PROTEIN (1.18 G/KG), 1966 ML FREE WATER FROM FORMULA AND FLUSH (28.1 ML/KG). START OSMOLITE 1.5 AT 20 ML PER HOUR, INCREASE BY 10 ML EVERY 4 HOURS UNTIL MAX GOAL RATE OF 55 ML PER HOUR IS ACHIEVED. CHECK RESIDUALS EVERY 4 HOURS, HOLD FOR 2 HOURS IF >250 ML. FOLLOW FOR TUBE FEED TOLERANCE, RESIDUALS AND LYTES. SEE CLINICAL NUTRITION ASSESSMENT 08/30/23. Addendum entered by Eda Biswas RD 08/30/23 14:22: SPOKE WITH NA FROM CUSTODIAL VIA PHONE. EXPLAINED THAT TUBE FEED WOULD BE CONTINUOUS X 24 HOURS TO ESTABLISH TOLERANCE. NOCTURNAL FEEDS OR BOLUS FEEDS COULD BE CONSIDERED IN THE FUTURE IF TOLERATED. PATIENT TAKES PUREE SOLIDS WITH HONEY THICK LIQUIDS AT CUSTODIAL. 12/20/23 PEG tube feedings are going well - Osmolite 1.5 Formula 1 container (237 ml) 5 times a day bolus feeding - 6 am, 10 am, 2 pm, 7 pm and 10 pm Pt is also given a Pureed diet with honey thick liquids in addition to his tube feedings at 8 am, 12 noon and 5 pm 04/13/24 Abdominal distension and bloating after tube feedings KUB to check for obstipation. Advised to increase Miralax to twice a day If pt continues to gain weight - will need to decrease his caloric intake to prevent him from become overweight/obese Pt's Mom is his HCP. Pt will be scheduled for PEG tube change in the [facility]. FU in 2 months - scheduled 06/08/24 ADDENDUM KUB SHOWED: 1. Obstipation. 2. No abnormal dilatation of small bowel loops. 3. Suprapubic catheter, and G tube in good position. Orders: Orders XR KUB 04/13/24 K59.09 - Other constipation Coding Level of Care Code Est Pt Level 4 (89546) Diagnoses Hepatitis C B19.20 Dysphagia R13.10 Chronic constipation K59.09 Gastrostomy status Z93.1 Time Spent (min) 25
[2024-04-13 11:08] VITALS: BP 128/90; PULSE 88; O2SAT 97; BMI 22.6
--- OUTSIDE RECORDS SUMMARY | 2024-04-13 14:25 | XMS_ITS | Encounter Summary ---
Author Organization [facility] Address [address] [place] [address] Care Team Providers Care Turbine Inspector Name Role Phone Emma Cross Primary Care Provider [phone] Reason for Visit * Reason Onset Date Comments RX refill 06/19/2021 Encounter Details Date Type Department Care Team (Late st Contact Info) Description 06/19/2021 Telephone [facility] Central Scheduling Department [address] [place] [address] Telephone Intake, Staff RX refill Social History Tobacco Use Types Packs/Day Years Used Date Smoking Tobacco: Never Smokeless Tobacco: Never Sex and Gender Information Value Date Recorded Sex Assigned at Not on file Legal Sex Male 1:01 PM EDT Gender Identity Not on file Sexual Orientation Not on file documented as of this encounter Miscellaneous Notes * Telephone Encounter - Yamileth Morrison - 06/19/2021 12:09 PM EDT Amy called on pt behalf to request refill on baclofen and stated pharmacy already sent over a request and they have not recvd anything yet pls follow up once complete [phone] documented in this encounter Plan of Treatment Upcoming Encounters Date Type Department Care Team (Late st Contact Info) Description 07/13/2024 3:00 PM EDT Office Visit [facility] Sclerosis [facility] [address] [place] [address] Specialty Sales Representative: Isaac Brumfield MD [address] [place] [phone] documented as of this encounter Visit Diagnoses Not on filedocumented in this encounter Care Teams Turbine Inspector Relationship Specialty Start Date End Date Emma Cross [address] [place] [address] PCP - General Internal Medicine 08/01/20 documented as of this encounter
--- OUTSIDE RECORDS SUMMARY | 2024-04-13 14:25 | XMS_ITS | Encounter Summary ---
Author Organization [facility] Address [address] [place] [address] Care Team Providers Care Outboard Technician Name Role Phone Emma Cross Primary Care Provider [phone] Reason for Visit * Reason Onset Date Comments Reschedule 04/01/2021 Encounter Details Date Type Department Care Team (Late st Contact Info) Description 04/01/2021 Telephone [facility] Central Scheduling Department [address] [place] [address] Telephone Intake, Staff Reschedule Social History Tobacco Use Types Packs/Day Years Used Date Smoking Tobacco: Never Smokeless Tobacco: Never Sex and Gender Information Value Date Recorded Sex Assigned at Not on file Legal Sex Male 1:01 PM EDT Gender Identity Not on file Sexual Orientation Not on file documented as of this encounter Miscellaneous Notes * Telephone Encounter - Dora Davide - 04/01/2021 3:49 PM EST Amy Clammer rescheduling pt's MS appt for 04/03 with Isaac Hugo MD Per DT, rescheduled appt for 09/[address] Hugo documented in this encounter Plan of Treatment Upcoming Encounters Date Type Department Care Team (Late st Contact Info) Description 07/13/2024 3:00 PM EDT Office Visit [facility] [address] [place] [address] Supervisor Assembling: Laxmi Hugo, Isaac May MD [address] [place] [phone] documented as of this encounter Visit Diagnoses Not on filedocumented in this encounter Care Teams Outboard Technician Relationship Specialty Start Date End Date Emma Cross [address] [place] [address] PCP - General Internal Medicine 08/01/20 documented as of this encounter
--- OUTSIDE RECORDS SUMMARY | 2024-04-13 14:25 | XMS_ITS | Encounter Summary ---
Author Organization [facility] Address [address] [place] [address] Care Team Providers Care Company Driver Name Role Phone Tay Spencerdebbie Primary Care Provider [phone] Reason for Visit * Reason Onset Date Comments Fax Referral 07/29/2020 Encounter Details Date Type Department Care Team (Late st Contact Info) Description 07/29/2020 Telephone [facility] Central Scheduling Department [address] [place] [phone] Telephone Intake, Staff Fax Referral Social History Tobacco Use Types Packs/Day Years Used Date Smoking Tobacco: Never Assessed Sex and Gender Information Value Date Recorded Sex Assigned at Not on file Legal Sex Male 1:01 PM EDT Gender Identity Not on file Sexual Orientation Not on file documented as of this encounter Miscellaneous Notes * Telephone Encounter - Amira Lincoln - 07/31/2020 11:41 AM EDT I spoke to Reyna, his mother. She states that she has power of fund accounting manager. Noe will be coming to the initial visit with someone from his skilled nursing, but she is unable to attend the first visit. She will have the skilled nursing bring 1. Copy of power of fund accounting manager, 2. MRI results report from [facility] 2017. 3. Medication list, 4. Most recent PCP note. (she does not know PCP's name at the moment.) I have sent her the [employer] link, so that she can also send us records thru [employer]. His mother adds that he is a poor historian. * Telephone Encounter - Nickolas Sam - 07/29/2020 1:16 PM EDT [facility] has medical records of pt Pt's mother said the most recent MRI was in September 2016. To obtain this, mother said she was having difficult time. [facility] wants [facility] to fax them a request and they will send records. [facility] fax number: [phone] documented in this encounter Plan of Treatment Upcoming Encounters Date Type Department Care Team (Late st Contact Info) Description 07/13/2024 3:00 PM EDT Office Visit [facility] [address] [place] [address] Talent Acquisition Consultant: Isaac Brumfield MD [address] [place] [phone] documented as of this encounter Visit Diagnoses Not on filedocumented in this encounter Care Teams Company Driver Relationship Specialty Start Date End Date Emma Cross [address] [place] [address] PCP - General Internal Medicine 08/01/20 documented as of this encounter
--- OUTSIDE RECORDS SUMMARY | 2024-04-13 14:27 | XMS_ITS | Clinical Summary ---
Author Organization [facility] Address [address] [place] [address] Care Team Providers Care Tester [employer] Packages Name Role Phone Tay Emma Primary Care Provider [phone] Allergies No known active allergies Medications acetaminophen (TYLENOL) 325 mg tablet Take 650 mg by mouth every 6 hours as needed for pain. Active hypromellose (GONAK) 2.5% ophthalmic solution Instill 2 drops into both eyes as needed for dry eyes. Active ascorbic acid (VITAMIN C) 500 mg/5 mL syrup Take by mouth daily. Active ascorbic acid (VITAMIN C) 500 mg tablet Take 500 mg by mouth 2 times a day. Active loratadine (CLARITIN) 10 mg tablet Take 10 mg by mouth daily. Active EPINEPHrine (EPIPEN) 0.3 mg/0.3 mL injection syringe Inject 0.3 mg into the outer thigh muscle as directed as needed for anaphylaxis. Active magnesium hydroxide (MILK OF MAGNESIA) 400 mg/5 mL suspension Take 10 mL by mouth daily. Active bisacodyL (DULCOLAX) 10 mg suppository Insert 10 mg into the rectum daily. Active sodium phosphate,mono-di basic (FLEET ENEMA RECTAL) Insert into the rectum. Active salt irrigation solution no.1 aerosol Administer into affected nostril(s) 4 times a day. 2 sprays Active metoprolol succinate 25 mg capsule,sprinkle, ER 24hr Take 25 mg by mouth daily. Active FOSFOMYCIN TROMETHAMINE ORAL Take 3 g by mouth every 14 days. Active tiZANidine (ZANAFLEX) 4 mg tablet Take 8 mg by mouth 3 times a day. Active diazePAM (VALIUM) 5 mg tablet Take 5 mg by mouth every 8 hours as needed. Active amitriptyline (ELAVIL) 50 mg tablet Take 100 mg by mouth nightly. Active melatonin 5 mg tablet Take 5 mg by mouth nightly. Active traZODone (DESYREL) 25 mg tablet Take 25 mg by mouth nightly. Active baclofen (LIORESAL) 10 mg tabletIndications :Multiple sclerosis (HCC),Spastic quadriplegia (CMS/HCC) (HCC) Take 4 tablets (40 mg total) by mouth 3 times a day. 360 tablet 11 4 10/23/19 25 Active alpha lipoic acid 600 mg capsuleIndication s:Multiple sclerosis (HCC),Spastic quadriplegia (CMS/HCC) (HCC),Cognitive impairment Take 1 capsule (600 mg total) by mouth 2 (two) times a day. 60 capsule 11 4 11/24/19 25 Active gabapentin (NEURONTIN) 100 mg capsuleIndication s:Multiple sclerosis (HCC) Take 2 capsules (200 mg total) by mouth 3 times a day. 180 capsule 11 4 01/06/20 25 Active phenytoin (DILANTIN) 50 mg chewable tablet Chew and swallow 2 tablets (100 mg total) by mouth once a day. 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 Cognitive impairment 05/20/2021 Neurogenic bladder 05/20/2021 Multiple sclerosis 08/01/2020 History of seizure disorder Encounters Date Type Department Care Team Description 03/03/2024 Refill [facility] Sclerosis [facility] [address] [place] [address] Mass Spec: Edu Cardoza MA from Last 3 Months Social History Tobacco Use Types Packs/Day Years Used Date Smoking Tobacco: Never Smokeless Tobacco: Never Tobacco Cessation:Counseling Given: Not Answered Sex and Gender Information Value Date Recorded Sex Assigned at Not on file Legal Sex Male 1:01 PM EDT Gender Identity Not on file Sexual Orientation Not on file Last Filed Vital Signs Vital Sign Reading Time Taken Comments Blood Pressure 121/78 11/12/2022 4:28 PM EDT Pulse 57 11/12/2022 4:28 PM EDT Temperature - - Respiratory Rate - - Oxygen Saturation - - Inhaled Oxygen Concentration - - Weight - - Height - - Body Mass Index - - Plan of Treatment Upcoming Encounters Date Type Department Care Team (Vicky st Contact Info) Description 07/13/2024 3:00 PM EDT Office Visit [facility] Sclerosis Clinic [address] [place] [address] Mass Spec: Isaac Brumfield MD [address] [place] [address] Health Maintenance Due Date Last Done Comments Cologuard 1978 Colon Cancer Screening 1978 Colonoscopy 1978 FOBT / Fit Test 1978 HIV Screening 1978 Hepatitis C Screening 1978 Sigmoidoscopy 1978 Hepatitis B Vaccines (1 of 3 - 19+ 3-dose series) 1997 COVID-19 Vaccine (2023- season) 2023 01/02/2022, 01/31/2021, 04/17/2020, Additional history exists Influenza Vaccine (#1) 2023 , 01/22/2023, 01/02/2022, Additional history exists Alcohol/Substance Use Screening 03/15/2024 Depression Screening and Follow-Up 03/15/2024 Social Drivers of Health Annual Screening 03/15/2024 DTaP,Tdap,and Td Vaccines (2 - Td or Tdap) 07/19/2031 07/18/2021 RSV Vaccine (60+ years old and patients) (1 - 1-dose 75+ series) 2053 Pneumococcal Vaccine: Pediatric (0-5 Years) and At-Risk Patients (6-64 Years) Aged Out 08/19/2022 No longer eligible based on patient's age [place] [id number] [facility] MEDICAID Advance Directives Documents on File Type Date Recorded Patient Divisional Human Resources Director Expl anation Power of Report Clerk 08/21/2020 6:37 PM 2018 Care Teams Tester [employer] Packages Relationship Specialty Start Date End Date Emma Cross [address] [place] [address] PCP - General Internal Medicine 08/01/20
--- OUTSIDE RECORDS SUMMARY | 2024-04-13 14:27 | XMS_ITS | Encounter Summary ---
Author Organization [facility] Address [address] [place] [address] Care Team Providers Care Polls Or Surveys Interviewer Name Role Phone Emma Cross Primary Care Provider [phone] Encounter Details Date Type Department Care Team (Late st Contact Info) Description 07/15/2021 Telephone [facility] Central Scheduling Department [address] [place] [address] Telephone Intake, Staff Social History Tobacco Use Types Packs/Day Years Used Date Smoking Tobacco: Never Smokeless Tobacco: Never Sex and Gender Information Value Date Recorded Sex Assigned at Not on file Legal Sex Male 1:01 PM EDT Gender Identity Not on file Sexual Orientation Not on file documented as of this encounter Miscellaneous Notes * Telephone Encounter - Dora Augustine - 07/15/2021 4:21 PM EDT MS Pt's caregiver states patient has run out of the prescription phenytoin ER (Dilantin) [address] capsule prescribed [address] Isaac Hugo Caregiver reqs prescription be refilled at [facility] [phone] Sending TE to [facility] Mutiple Sclerosis Clinical Staff per DT to please obtain order from provider and send to above named pharmacy documented in this encounter Plan of Treatment Upcoming Encounters Date Type Department Care Team (Late st Contact Info) Description 07/13/2024 3:00 PM EDT Office Visit [facility] [address] [place] [address] Filter Operator: Isaac Brumfield MD [address] [place] [id number] documented as of this encounter Visit Diagnoses Not on filedocumented in this encounter Care Teams Polls Or Surveys Interviewer Relationship Specialty Start Date End Date Emma Cross [address] [place] [address] PCP - General Internal Medicine 08/01/20 documented as of this encounter
--- OUTSIDE RECORDS SUMMARY | 2024-04-13 14:27 | XMS_ITS | Data Portability ---
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 Plan of Treatment Reminders Order Date Submit Date Provider Last Modified By Organization Details Last Modified Time Details Appointments None record ed. Lab None record ed. Referral None record ed. Procedures None record ed. Surgeries None record ed. Imaging None record ed. Medication Orders None record ed. Patient TargetsNo targets recorded. Patient InstructionsNo instructions recorded. Reason for Referral None Reported. Problems Name Problem SNOMED Code Status Onset Date Resolution Date Notes Provider Name and Address Organization Details Recorded Time Primary insomnia 2764732 Active 2019 Toñito Denson MD [address], [address], [place], [address], [facility] 0 13:58:16 Recurrent urinary tract infection 528886952 Completed 201905/11/2019 MAO Moffett [address], [address], [place], [address], [facility] 0 07:38:20 Sepsis due to urinary tract infection 028417283 Active 2019 MAO Moffett [address], [address], [place], [address], [facility] 0 07:38:37 Seizure disorder 186752275 Active 2019 Tanya Bailey MD [address], [address], [place], [address], [facility] 0 11:33:50 Mixed anxiety and depressive disorder 387621945 Active 2020 Alka Schaeffer MD [address], [address], [place], [address], [facility] 1 14:41:02 Sinus tachycardia 15811146 Active 2020 Alka Schaeffer MD [address] [facility] [facility] [address], [place], [address], [facility] 1 14:46:37 Multiple sclerosis 42348005 Active 2017 Lexii Ames null, [facility] 8 12:02:11 Neurogenic urinary bladder 911268756 Active 2017 Lexii Ames null, [facility] 8 12:02:19 Viral hepatitis C 32780145 Active 2017 Lexii Ames null, [facility] 8 12:02:29 Psoriasis 3459150 Active 2017 Lexii Ames null, [facility] 8 12:02:34 Constipatio n 03647723 Active [address], [facility] [address], [place], [address], [facility] 8 14:32:59 Tobacco dependence syndrome 51766551 Active 2017 Alka Schaeffer MD [address] [facility] [address], [place], [address], [facility] 8 10:54:36 Chronic pain 08578539 Active 2018 MAO Gale [address] [facility] [address], [place], [address], [facility] 9 13:08:02 Problem Notes None recorded. Medical Equipment None Reported. Allergies No known drug allergies Medications Name Sig Start Date Stop Date Status Note LastModified by Organization Details LastModified Time methadone 10 mg tablet active Not Available Not Available No t Available Vitals Date Recorded Body height Body temperature Systolic blood pressure Diastolic blood pressure Provider Name and Address Organization Details Last Updated DateTime 05/03/2020 182.88 cm 97.2 [degF] 135 mm[Hg] 85 mm[Hg] EVA [address] [facility] [facility] [address], [place], [address] , [facility] 1 11:45:53 Date Recorded Body height Body temperature Oxygen saturation Oxygen saturation in Arterial blood by Pulse oximetry Respiratory rate Provider Name and Address Organization Details Last Updated DateTime 1 182.88 cm 97.5 [degF] 86 % 86 % 20 /min Linda Peña, MAO [address], [address], [place], [address], [facility] 1 11:19:40 Date Recorded Systolic blood pressure Diastolic blood pressure Provider Name and Address Organization Details Last Updated DateTime 05/06/2020 135 mm[Hg] 85 mm[Hg] Lexii Zuñiga [facility] 05/06/2020 10:28:53 Social History Question Answer Notes LastModified by Organizat ion Details LastModified Time Tobacco Smoking Status Current Every Day Smoker occas marijuana Not Available [facility] 01/09/2020 03:13:21 Do You Have An Advance Directive? Yes Full Code [id number] Information not available 01/09/2020 What Is Your Level Of Alcohol Consumption? None [id number] Information not available 01/09/2020 How Much Tobacco Do You Chew? None [id number] Information not available 01/09/2020 Do You Have A Medical Power Of Cardiovascular Technician? Yes [id number] Information not available 01/09/2020 What Was The Date Of Your Most Recent Tobacco Screening? 09/27/2018 [id number] Information not available 01/09/2020 How Much Tobacco Do You Smoke? 0.5 PPD [id number] Information not available 01/09/2020 Has Tobacco Cessation Counseling Been Provided? Yes [id number] Information not available 01/09/2020 On What Date Was Tobacco Cessation Counseling Provided? 10/17/2018 [id number] Information not available 01/09/2020 How Many Years Have You Smoked Tobacco? 25 [id number] Information not available 01/09/2020 Sex: Unknown Functional Status None recorded. Mental Status None recorded. Family History Relationship Description Onset Age of this Age Resolved Age Notes LastModified by Organization Details LastModified Time Father No current problems or disability glord Not available 06/23 14:45:10 Mother No current problems or disability glord Not available 06/23 14:45:10 Notes:N/C Medical History No medical history recorded. Immunizations Vaccine Type Date Status Note Provider Nam e and Address Organization Details Recorded Time Influenza, split virus, quadrivalent, preservative 0 completed Lisha Bowden [facility] 04/02/2020 15:53:25 Past Encounters Encounter ID Performer Location Encounter Start Date Encounter Closed Date Diagnosis/Indication Diagnosis SNOMED-CT Code Diagnosis ICD10 Code Diagnosis Note [id number] Lexii Zuñiga [facility] on [address] [place] [address] 09/28/2017 11:55:21 10/13/2017 14:28:43 Multiple sclerosis 85465153 G35 Receives IV tysabri monthlyFol lows with Dr. Pradeep Jimenestriptyl ine 50 mg BID Baclofen 20 mg TIDGabapen tin 1200 mg TID Neurogenic urinary bladder 012407258 N31.8 Suprapubic catheter in placeFollo wed by Dr Zepeda urologyDai ly catheter careMonito r Viral hepatitis C 876305 07 B17.10 s/p Harvoni treatmentH CV RNA undetectab le in 2017 Psoriasis 7277815 L40.0 Triamcinol one prnDerm consult prnMonitor Tobacco de pendence syndrome 26576483 F17.210 Smoking cessation encouraged -patient uninterest ed currently [id number] EVA RENEE [facility] on [address] [place] [phone] 10/07/2017 14:11:13 10/13/2017 16:12:46 Multiple sclerosis 30356244 G35 Receives IV tysabri monthlyFol lows with Dr. Pradeep Zelyaaiptyl ine 50 mg BID Baclofen 20 mg TIDGabapen tin 1200 mg TID Neurogenic urinary bladder 427986409 N31.8 Suprapubic catheter in placeFollo wed by Dr Zepeda urologyDai ly catheter careMonito r Viral hepatitis C 338544 07 B17.10 s/p Harvoni treatmentH CV RNA undetectab le in 2017 Psoriasis 8636134 L40.0 Triamcinol one prnDerm consult prnMonitor Tobacco de pendence syndrome 07504946 F17.210 Smoking cessation encouraged -patient uninterest ed currently Constipation 34601562 K5 9.09 Add colace 100 mg BIDSenna 8.6 (2) tabs qhs [id number] Alka Schaeffer MD [facility] on [address] [place] [address] 12/14/2017 13:52:42 12/27/2017 09:29:13 Constipation 53572870 K59.09 Well controlled on colace 100 mg BID and Senna 8.6 (2) tabs qhs. Multiple sclerosis 24562 007 G35 Continue IV tysabri monthly, per neuro. F/U with neuro (Dr. Fernández) as planned. Continue amitriptyl ine 50 mg BID, Baclofen 20 mg TID and gabapentin 1200 mg TID. Monitor sxs. Neurogenic urinary bladder 732607572 N31.8 Suprapubic catheter in placeFollo wed by Dr Zepeda, urologyDai ly catheter careMonito r Viral hepatitis C 355424 07 B17.10 s/p Harvoni treatmentH CV RNA undetectab le in 2017, recheck yearly Tobacco de pendence syndrome 79070631 F17.210 Pt. refusing assistance for smoking cessation. Continue to encourage quitting. Psoriasis 4663445 L40.0 Adequate control on triamcinol one 0.1%, BID prnDerm consult prnMonitor [id number] EVA RENEE [facility] on [address] [place] [address] 12/15/2017 16:10:41 12/17/2017 11:49:24 Neurogenic urinary bladder 143341563 N31.8 UAC+S todaySend culture of discharge for testingChl amydia and gonorrhea screen -Suprapubi c catheter in placeFollo wed by Dr Zepeda, urologyDai [place]Mon[place] r [id number] Lexii [place] [facility] on [address] [place] [phone] 12/24/2017 13:54:20 12/27/2017 12:43:25 Seasonal allergic rhinitis 532497775 J30.2 Claritin 10 mg dailyAdd benadryl 50 mg Q6h prnMonitor sxs [id number] Lexii Yogesh [facility] on [address] [place] [address] 01/24/2018 16:11:59 01/26/2018 13:38:33 Abscess 816236994 L02.212 Abscess cleaned and gently drainedWar m compress to area TIDConside r antibiotic s if not resolving [id number] Lexii Zuñiga [facility] on [address] [place] [address] 02/14/2018 09:11:48 02/17/2018 13:09:31 Multiple sclerosis 98573024 G35 Tecfidera 240 mg BIDAmitrip tyline 50 mg BIDBaclofe n 20 mg TIDGabapen tin 1200 mg TIDMonitor sxsF/u with neurology in May as scheduled Constipation 52131488 K5 9.09 Well controlled on colace 100 mg BID and Senna 8.6 (2) tabs qhs. Neurogenic urinary bladder 594449338 N31.8 Suprapubic catheter in placeFollo wed by Dr Zepeda, urologyOn Toviaz 8 mg dailyDaily catheter careMonito r Tobacco de pendence syndrome 11450544 F17.210 Pt. refusing assistance for smoking cessation. Continue to encourage quitting. [id number] Lexii Rickes [facility] on [address] [place] [address] 02/28/2018 12:07:39 03/10/2018 12:30:42 Neurogenic urinary bladder 200012934 N31.8 Suprapubic catheter in placeFollo wed by Dr Zepeda, urologyWil l d/c Toviaz as patient reporting side effects are not tolerableC ont. myrbetriq 50 mg dailyDaily [place] r [id number] Lexii Zuñiga [facility] on [address] [place] [id number] 04/29/2018 13:57:16 05/04/2018 15:20:14 Altered mental status 902336340 R41.82 See HPIPatient inhaled unknown substanceN ow with tachycardi a and hypotensio nTransfer to ED for urgent eval Drug-induc ed hypotension 437129024 I95.2 Inhalation of unknown substanceT [place]ansfer [place] ED [id number] Alka Schaeffer MD [facility] on [address] [place] [phone] 05/17/2018 14:06:31 05/23/2018 11:33:39 Multiple sclerosis 31874112 G35 No longer on tysabri, now getting Tecfidera 240 mg BID, per neuro. F/U with neuro (Dr. Fernández) as planned. WIth trouble sleeping due to pain and spasms. Will increase amitriptyl ine from 50 mg BID to 50 mg qAM and 100 mg qhs. Continue Baclofen 20 mg TID and qd prn, and gabapentin 1200 mg TID. Monitor sxs. Constipation 07522863 K5 9.09 Well controlled on colace 100 mg BID and Senna 8.6 (2) tabs qhs. Neurogenic urinary bladder 237391064 N31.8 Suprapubic catheter in placeFollo wed by Dr Zepeda, urologyDai ly catheter careMonito r Viral hepatitis C 704255 07 B17.10 s/p Harvoni treatmentH CV RNA undetectab le in 2017, to be rechecked yearly, was due in 04/02. will order now. Tobacco de pendence syndrome 06386888 F17.210 Pt. refusing assistance for smoking cessation. Continue to encourage quitting. Psoriasis 1347740 L40.0 Adequate control on triamcinol one 0.1%, BID prnDerm consult prnMonitor [id number] Lexii Zuñiga [facility] on [address] [place] [address] 05/18/2018 14:08:04 05/23/2018 12:07:42 Cannabis abuse 54611017 F12.220 Suspect marijuana use however patient denies thisCurren tly appears stable and patient in no acute distressMo nitor and if patient with change in [facility] [id number] [facility] [address] [place] [address] 06/06/2018 14:26:05 06/07/2018 09:43:54 Multiple sclerosis 30218997 G35 Increased pain/muscl e spasmsIncr ease baclofen 30 mg TIDAdd valium 2 mg Q8h prn for spasmCont. Tecfidera 240 mg BIDAmitrip tyline 50 mg BIDGabapen tin 1200 mg TIDMonitor sxsF/u with neurology as scheduled [id number] EVA RENEE [facility] on [address] [place] [phone] 06/23/2018 14:43:45 06/29/2018 15:35:25 Multiple sclerosis 82870224 G35 Increased pain/muscl e spasmsIncr ease baclofen to 40 mg TIDchange frequency of valium to 2 mg Q6h prn for spasmCont. Tecfidera 240 mg BIDAmitrip tyline 50 mg BIDGabapen tin 1200 mg TIDMonitor sxsF/u with neurology as scheduled [id number] Lexii [place] [facility] on [address] [place] [phone] 06/28/2018 11:27:09 07/01/2018 10:54:05 Multiple sclerosis 44619855 G35 Increased pain/muscl e spasms-poo rly controlled with current regimenWil l add methadone 5 mg daily-titr ate for pain control, discussed with Dr. Schaeffer in adding this medication Increase valium 5 mg Q6h prnBaclofe n 40 mg TIDTecfide ra 240 mg BID Amitriptyl ine 50 mg BIDGabapen tin 1200 mg TIDMonitor sxsF/u with neurology as scheduled [id number] Lexii Yogesh [facility] on [address] [place] [address] 07/11/2018 14:05:58 07/14/2018 15:47:53 Candidal balanitis 88347293 B37.42 Start clotrimazo le 1% cream to penile head BID x 10 days [id number] Alka Schaeffer MD [facility] on [address] [place] [address] 07/15/2018 10:40:00 07/19/2018 14:34:44 Nausea and vomiting 66157827 R11.2 Likely gastroente ritis, but with hx of eating shrimp fried rice last night, could also be food poisoning. Also with indwelling judge, could be UTI. Will get CBC, CMP and U/A and C&S. Will start pepto bismol 524 mg TID today, then prn and zofran 4 mg q 4 hrs prn nausea. Monitor for fever or other signs of sepsis. Tachycardia 1939332 R00. 0 With tachycardi a, some concern for dehydratio n, he does not infrequent ly run a pulse in the low 100s, but this is high even for him and he does not appear anxious. Will check STAT CMP and U/A and C&S to evaluate fluid status. [id number] EVA RENEE [facility] on [address] [place] [address] 07/18/2018 08:35:05 07/21/2018 16:19:03 Constipation 66054114 K59.09 colace 100 mg BIDSenna 8.6 (2) tabs qhsAdd Miralax 17 grams daily in fluid of choice, monitor effect [id number] Alka Schaeffer MD [facility] on [address] [place] [address] 07/19/2018 12:46:48 07/21/2018 16:25:30 Constipation 26288887 K59.09 Continue colace 100 mg BID and Senna 8.6 (2) tabs qhsAnd increase Miralax to 17 grams BID in fluid of choice, monitor effect. Nausea and vomiting 1693 2000 R11.2 resolved Tachycardia 0035079 R00. 0 Improved back to baseline since acute illness resolved. [id number] EVA RENEE [facility] on [address] [place] [address] 07/28/2018 14:31:11 08/02/2018 14:12:08 Multiple sclerosis 91076453 G35 Increased pain/muscl e spasms-poo rly controlled with current regimenD/C methadone as pt has had a decline in condition, spoke with covering MD about this decisionde crease valium to 2 mg Q 6 h prnAdd norco 5/325 mgcontinue :Baclofen 40 mg TIDTecfide ra 240 mg BID Amitriptyl ine 50 mg BIDGabapen tin 1200 mg TIDMonitor sxsF/u with neurology as scheduled [id number] Bib Petersen MD [facility] on [address] [place] [address] 08/05/2018 12:53:27 08/11/2018 14:25:39 Multiple sclerosis 83581432 G35 Wheelchair bound, having spastic movementsF ollowed closely by Dr. Fernández, continue to follow his recsContin ue medication regimen and physical therapy Neurogenic urinary bladder 965207242 N31.8 Suprapubic catheter in placeFollo wed by Dr Zepeda, urologyDai ly catheter careMonito r Viral hepatitis C 619905 07 B17.10 s/p Harvoni treatmentI n remission now, continue to monitor Tobacco de pendence syndrome 19293761 F17.210 Wishes to continue smokingCon tinue to encourage cessation Opioid dependence 819724 00 F11.20 hx of abusecurre ntly on low dose PRN norco for painMonito r closely [id number] EVA RENEE [facility] on [address] [place] [address] 08/09/2018 14:12:46 08/10/2018 11:40:01 Constipation 55098545 K59.09 Change miralax and colace to PRN due to loose stoolsSenn a 8.6 (2) tabs qhsmonitor effect, [place] [id number] Kemi HansonMAO serna [facility] on [address] [place] [address] 08/28/2018 12:55:07 08/31/2018 14:14:26 Chronic pain 30480937 G89.29 D/C ibuprofen and Motrin. Tramadol 50 mg q 6 hrs. Acetominop hen 650 mg QID. Continue gabapentin 600 mg 2 tabs TID. [place] 5/325 mg q 6 hrs prn severe pain. Multiple sclerosis 15918 007 G35 Tecfidera 240 mg BID Baclofen 40 mg TID Valium 2 mg q 6 hrs prn shaking / anxiety. follow up with neuro. Neurogenic urinary bladder 183010928 N31.9 Increase oxybutynin to 10 mg QD Follow up with urology. [id number] EVA RENEE [facility] on [address] [place] [address] 09/06/2018 10:04:28 09/08/2018 10:32:50 Impacted cerumen in left ear [id number] 695687 H61.22 debrox gtts- 5 to left ear QHS x 3 days then flush with warm NS on 4 daymonitor for resolution [id number] EVA RENEE [facility] on [address] [place] [phone] 3 09/20/2018 09:52:09 09/23/2018 11:22:38 Multiple sclerosis 65879985 G35 Tecfidera 240 mg BID Baclofen 40 mg TID Valium 2 mg q 6 hrs prn shaking / anxiety.Ch genesis tizanidine 8 mg to TID instead of BID, monitor for effectfoll ow up with neuro as needed [id number] EVA RENEE [facility] on [address] [place] [phone] 09/27/2018 11:38:40 09/28/2018 19:31:38 Multiple sclerosis 47321796 G35 Tecfidera 240 mg BID Baclofen 40 mg TID Valium 2 mg q 6 hrs prn shaking / anxiety.Co ntinue tizanidine 8 mg TIDfollow up with neuro as neededsee HPI about scooter Chronic pain 20597883 G8 9.29 Tramadol 50 mg q 6 hrsacetami nophen 650 mg QIDContinu e gabapentin 600 mg 2 tabs TID. [place] 5/325 mg q 6 hrs prn severe pain. Neurogenic urinary bladder 452858018 N31.8 oxybutynin 10 mg QDFollow up with urology. Viral hepatitis C 537695 07 B17.10 s/p Harvoni treatmentI n remission now, continue to monitor Tobacco de pendence syndrome 51783662 F17.210 Wishes to continue smokingCon tinue to encourage cessation Opioid dependence 311223 00 F11.20 hx of abusecurre ntly on low dose PRN norco for painMonito r closely [id number] Lexii [place] [facility] on [address] [place] [address] 3 10/13/2018 08:23:43 10/18/2018 12:58:20 Constipation 67872856 K59.09 Increase senna 2 tabs BIDIncreas e miralax 17 g BIDBowel protocol prnMonitor Multiple sclerosis 59802 007 G35 Valium 5 mg Q6h prn Baclofen 40 mg TIDTecfide ra 240 mg BID Amitriptyl ine 50 mg BIDGabapen tin 1200 mg TIDMonitor sxsF/u with neurology as scheduled Neurogenic urinary bladder 160964238 N31.8 Suprapubic catheter in placeFollo wed by Dr Zepeda, urologyOxy butynin 10 mg daily Daily catheter careMonito r [id number] Lexii Zuñiga [facility] on [address] [place] [address] 3 10/17/2018 14:02:44 10/20/2018 09:20:38 Tobacco dependence syndrome 97519851 F17.210 Refuses smoking cessation, I will quit when I perish Adt l add albuterol inhaler PRN [id number] Lexii Zuñiga [facility] on [address] [place] [phone] 3 11/03/2018 13:31:14 11/10/2018 08:54:46 Chronic pain 34773794 G89.29 Start methadone 10 mg BIDD/c tramadol when methadone availableM onitor for pain control Multiple sclerosis 52797 007 G35 Valium 5 mg Q6h prn Baclofen 40 mg TIDTecfide ra 240 mg BID Amitriptyl ine 50 mg BIDGabapen tin 1200 mg TIDMonitor sxsFollows with neurology [id number] Toñito Denson MD [facility] on [address] [place] [address] 3 12/12/2018 16:27:48 12/14/2018 15:51:19 Multiple sclerosis 48128931 G35 slow progressiv e declinecon tinue supportive carepatien t wishes to transition back to community if services can be put in place Tobacco de pendence syndrome 95950280 F17.290 encourage quitting Neurogenic urinary bladder 950693408 N31.8 judge dependentm onitor, currently at baselineur ology eval prn Chronic pain 53863622 G8 9.29 maintained on methadoneh x heroin and cocaine usemonitor [place]izatio n [id number] Lexii Zuñiga [facility] on [address] [place] [address] 6[address]70[address] 3 12/28/2018 11:47:03 12/30/2018 11:56:37 Pain in right arm 490290395 M79.601 Suspect secondary to flu vaccineMon itor and consider further w/u if pain persists or worsens [id number] EVA RENEE [facility] on [address] [place] [address]82[address] 3 12/29/2018 14:24:10 01/02/2019 15:52:48 Acute urinary tract infection 008180728 N39.0 Add bactrim DS 800 /160 mg BID x 5 daysmonito r for improvemen tchange abx if sensitivit ies warrant a change [id number] Lexii Zuñiga [facility] on [address] [place] [address] 16996[address]880 3 01/18/2019 13:59:55 01/24/2019 11:05:58 Multiple sclerosis 25784826 G35 Add Valium 5 mg Q8h prn ContBaclof en 40 mg TIDMonitor sxsFollows with neurology [id number] Lexii Zuñiga [facility] on [address] [place] [address] 50061-872 3 03/01/2019 13:01:51 03/03/2019 11:45:54 Multiple sclerosis 31163876 G35 Increase methadone 10 mg TIDBaclofe n 40 mg TIDGabapen tin 1200 mg TIDTizanid ine 8 mg TIDMonitor sxsFollows with neurology Tobacco de pendence syndrome 54064624 F17.290 encourage quitting Neurogenic urinary bladder 464626496 N31.8 judge dependentm onitor, currently at baselineur ology eval prn Chronic pain 74904221 G8 9.29 maintained on methadone- increase as abovehx heroin and cocaine usemonitor utilizatio n [id number] Lexii Zuñiga [facility] on [address] [place] [address]94[address]098 3 03/07/2019 11:12:49 03/10/2019 15:34:01 Insomnia 382977079 G47.09 Add melatonin 5 mg QHSMonitor for effect [id number] Toñito Denson MD [facility] on [address] [place] [address] 58[address] 3 04/03/2019 16:20:32 04/07/2019 16:09:51 Sepsis caused by Escherichia coli 044709023 A41.51 see HPI sepsis secondary to UTInow to complete cefpodoxim eadd probioticm onitor to resolution Neurogenic urinary bladder 193364097 N31.8 see abovesupra -pubic cath dependentu rology eval prn Tobacco de pendence syndrome 36672918 F17.290 encourage quittingst ill active smoker [id number] Lexii Zuñiga [facility] on [address] [place] [address] 31749-834 3 04/11/2019 09:17:34 04/18/2019 09:00:15 Sepsis caused by Escherichia coli 497115530 A41.51 see HPI sepsis secondary to UTIHas now completed antibiotic courseMoni tor for recurrent sxs Neurogenic urinary bladder 935874684 N31.8 see abovesupra -pubic cath dependentu rology eval prn Tobacco de pendence syndrome 97040662 F17.290 encourage quittingst ill active smoker Multiple sclerosis 04437 007 G35 Methadone 10 mg TIDBaclofe n 40 mg TIDGabapen tin 1200 mg TIDTizanid ine 8 mg TIDMonitor sxsFollows with neurology [id number] MD DENISE Johnson [address] [place] [address] 04/27/2019 13:52:48 05/01/2019 11:12:04 Multiple sclerosis 59024499 G35 at baselineco ntinue supportive caretransi tion back to community if services can be put in placecurre ntly stable at baseline Neurogenic urinary bladder 707521715 N31.8 recent sepsis secondary to UTIsupra-p ubic cath dependentf ollowed by urology Primary insomnia 5513614 F51.01 melatonin 5 mg qhsmonitor for sx relief [id number] MAO Moffett [facility] on [address] [place] [address] 05/11/2019 07:27:32 05/15/2019 15:35:43 Sepsis due to urinary tract infection 849176442 A40.0 see hpiceftin 500 mg 1 bid x 4 daysprobio tic bid x 7 dayswill start methenamin e 1 gram bid on 05/14 for UTI prophylaxi svitamin C 500 mg 1 bid Neurogenic urinary bladder 794590926 N31.9 will f/u with urology in 3 weeks for catheter changeoxyb utynin 5 mg qd discuss prophylaxi s treatment as above Viral hepatitis C 741146 07 B19.20 known hx ofwill order CMP weekly due to starting methenamin e on /u with gi prn Multiple sclerosis 18702 007 G35 baclofen 40 mg itdamantad ine 100 mg bidvalium 5 mg q 8 hrstizanid ine 8 mg tidmonitor Chronic pain 97788969 G8 9.29 gabapentin 1200 mg tidmethado ne 10 mg q 8 hrsmonitor for pain relief Constipation 74892185 K5 9.00 senna 8.6 mg 2 bidcolace 100 mg bidmonitor bowels [id number] Lexii Zuñiga [facility] on [address] [place] [address] 91090-958 3 05/23/2019 13:05:38 05/26/2019 14:08:40 Obstruction of pharynx by food 473263251 T17.220A Resolved with administra tion of abdominal thrustsNow appears back to baselineMo nitor for signs aspiration pneumoniaM onitor vitals Qshift x 48h [id number] Lexii Zuñiga [facility] on [address] [place] [address] 31361-339 3 06/20/2019 12:10:10 06/22/2019 10:18:39 Neurogenic urinary bladder 575195158 N31.2 suprapubic catheter in placeoxybu tynin 5 mg qd hiprex 1 g BIDcathete r flushed daily with acetic acidmonito r for recurrent infection Viral hepatitis C 859280 07 B19.20 s/p treatment with HarvoniVir al load undetectab le 03/2017 Multiple sclerosis 72302 007 G35 baclofen 40 mg tidamantad ine 100 mg bidvalium 5 mg tidtizanid ine 8 mg tidmonitor Chronic pain 25050966 G8 9.29 gabapentin 1200 mg tidmethado ne 10 mg tidpain well controlled on current regimenmon itor [id number] Lexii Zuñiga [facility] on [address] [place] [address]45-994 3 08/01/2019 12:12:55 08/04/2019 09:01:17 Pain in right lower limb 520636360 M79.604 Now appears resolvedNo current pain or rednessWil l monitor [id number] Lexii Zuñiga [facility] on [address] [place] [address] 57543-347 3 08/22/2019 11:54:08 08/24/2019 10:45:03 Visual hallucinations 20520392 R44.1 UA, C&S, BMP, CBC with diff orderedMon itor sxsPsych eval if no evidence of infection found [id number] Tanya Bailey MD [facility] on [address] [place] [address] 23113-780 3 09/13/2019 08:20:20 09/19/2019 09:55:09 Chronic pain 97948311 G89.29 amitriptyl ine 150 mg dailygabap entin 1200 mg tidmethado ne 10 mg tidwill monitor Multiple sclerosis 53233 007 G35 amantadine 100 mg bidtizanid ine 8 mg tidtecfide ra 240 mg biddiazepa m 5 mg tidbaclofe n 40 mg tidwill monitor Neurogenic urinary bladder 603886062 N31.9 amitriptyl ine 150 mg at hsoxybutyn in 5 mg suprapubic catheterfu urology prnwill monitor Seizure disorder 0445291 02 G40.909 phenytoin 100 ER mg tidwill monitor Opioid dependence 584774 00 F11.20 methadone 10 mg qshiftwill monitor [id number] Lexii Zuñiga [facility] on [address] [place] [address] 03810[address] 3 09/27/2019 15:19:48 10/03/2019 14:10:37 Candidiasis of skin 19920531 B37.2 Add nystatin powder BID to groin rashMonito r to resolution [id number] Lexii Zuñiga [facility] on [address] [place] [address] 80253-152 3 10/11/2019 11:57:02 10/13/2019 14:11:32 Primary insomnia 2292888 F51.01 Increase melatonin 10 mg QHSMonitor [id number] Lexii Zuñiga [facility] on [address] [place] [address] 89[address] 3 10/24/2019 11:57:15 10/27/2019 13:35:56 Open wound of thigh 349462667 S71.101A No signs of infection currentlyC ont with bacitracin and DCD dailyMonit or for signs of infection [id number] MAO Moffett [facility] on [address] [place] [address]76[address]812 3 11/03/2019 13:05:03 11/07/2019 12:20:36 Chronic pain 11628154 G89.29 amitriptyl ine 150 mg qdgabapent in 1200 mg tidmethado ne 10 mg tidmonitor for pain relief, bowels Multiple sclerosis 89572 007 G35 amantadine 100 mg bidtizanid ine 8 mg tidtecfide ra 240 mg biddiazepa m 5 mg tidbaclofe n 40 mg tidmonitor for spasms, adjust meds prn Neurogenic urinary bladder 897671808 N31.9 amitriptyl ine 150 mg qhsoxybuty liseth 5 mg qd suprapubic catheterf/ u urology prnmonitor Seizure disorder 1260794 02 G40.909 no seizure activityph enytoin 100 ER mg tidmonitor for seizure activity Opioid dependence 136579 00 F11.20 methadone 10 mg tidsupport primo [facility] [id number] MAO Moffett [facility] on [address] [place] [address] 38958-469 3 11/16/2019 13:10:26 11/22/2019 09:40:24 Neurogenic urinary bladder 119983762 N31.9 will get UA C & S as pt may have UTIamitrip tyline 150 mg qhsoxybuty liseth 5 mg qd suprapubic catheterf/ u urology prnmonitor Lethargy 696934656 R53.8 3 get CBC with diff and CMP on itor for worsening sx Primary insomnia 2479876 F51.01 continue melatonin 10 mg at hs and gabapentin 1200 mg tidwill add trazodone 25 mg at hs prn insomniaco nsider scheduling it if pt takes it regularly [id number] Lexii Zuñiga [facility] on [address] [place] [address] 87549-544 3 12/04/2019 08:45:36 12/06/2019 13:52:17 Sepsis due to urinary tract infection 724139463 N30.00 R65.20 Complete course CeftinProb ioticMonit or to resolution Neurogenic urinary bladder 411108745 N31.2 suprapubic catheter in placeHold Hiprex 1 g BID until antibiotic course completeIn crease acetic acid flush to BIDDaily catheter careMonito rFollows with urology, Dr Zepeda Multiple sclerosis 14812 007 G35 baclofen 40 mg tidamantad ine 100 mg bidvalium 5 mg tidtizanid ine 8 mg tidSupport primo careMonito r Seborrheic dermatitis 50 829774 L21.8 Start ketoconazo le 2% cream to facial rash BID x 4 weeksMonit or [id number] Lexii Ames [facility] on [address] [place] [address] 42106[address]939 3 12/12/2019 12:16:40 12/14/2019 13:25:55 Sepsis due to urinary tract infection 600898000 N30.00 R65.20 Antibiotic course completedA ppears resolvedMo nitor for recurrent sxs Neurogenic urinary bladder 463300293 N31.2 suprapubic catheter in placeHipre x 1 g BIDAcetic acid catheter flush BIDDaily catheter careMonito rFollows with urology, Dr Zepeda Multiple sclerosis 12211 007 G35 baclofen 40 mg tidamantad ine 100 mg bidvalium 5 mg tidtizanid ine 8 mg tidSupport primo careMonito r [id number] Lexii Zuñiga [facility] on [address] [place] [address] 84843-005 3 12/19/2019 14:13:42 12/22/2019 14:06:10 Neurogenic urinary bladder 440487918 N31.2 Now has suprapubic catheter and judge in placeTo f/u with urology next week for upsizing of suprapubic catheterMo nitor for any s&s of infectionC ontHiprex 1 g BIDAcetic acid catheter flush BIDDaily catheter care [id number] Lexii Ames [facility] on [address] [place] [address] 25685-980 3 12/26/2019 09:55:37 01/01/2020 16:14:29 Neurogenic urinary bladder 564491865 N31.2 Now has suprapubic catheter and judge in placeHas urology f/u scheduled tomorrow for upsizing of suprapubic catheterCo nt Hiprex 1 g BIDAcetic acid catheter flush BIDDaily catheter care Fever 826141800 R50.81 Concern for recurrent urinary infectionO btain STAT UA, C&S, BMP and CBC w diff, blood cultures x 2Give ceftriaxon e 1 g IM x 1 nowMonitor [id number] Lexii Ames [facility] on [address] [place] [address] 60402-373 3 01/02/2020 12:44:33 01/04/2020 13:36:25 Sepsis due to urinary tract infection 569527947 N30.00 R65.20 Completed course IV cefepimePr obioticMon itor for recurrent infection Neurogenic urinary bladder 136339326 N31.2 suprapubic catheter and judge in placeF/u with urology tomorrow for up-sizing of suprapubic catheterDa edmund catheter care Monitor Multiple sclerosis 93192 007 G35 baclofen 40 mg tidamantad ine 100 mg bidvalium 5 mg tidtizanid ine 8 mg tidSupport primo careMonito r [id number] Tanya Bailey MD [facility] on [address] [place] [address] 87841-201 3 01/03/2020 08:24:20 01/05/2020 12:58:29 Sepsis due to urinary tract infection 628859368 A41.9 resolved Primary insomnia 3612046 F51.01 trazodone 25 mg at hs prnmelaton in 5 mg at hs will monitor Neurogenic urinary bladder 187210383 N31.8 amitriptyl ine 150 mg at hsoxybutyn in 5 mg suprapubic catheterfu urologywil l monitor Multiple sclerosis 61437 007 G35 amantadine 100 mg bidtecfide ra 240 mg biddiazepa m 5 mg tidbaclofe n 40 mg tidwill monitor Chronic pain 98406599 G8 9.29 amitriptyl ine 100 mg qhsgabapen tin 1200 mg tidmethado ne 10 mg tidwill monitor Seizure disorder 7544719 02 G40.909 phenytoin 100 ER mg tidwill monitor 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 diazepam 5 mg tidwill monitor [id number] Lexii Yogesh [facility] on [address] [place] [address] 47247-311 3 01/10/2020 11:06:12 01/12/2020 11:29:35 Sepsis due to urinary tract infection 945384867 N30.00 R65.20 Completed course IV cefepimePr obioticMon itor for recurrent infection Neurogenic urinary bladder 782637505 N31.2 suprapubic catheter and judge in placeF/u with urology as scheduledD aily catheter care Monitor Multiple sclerosis 77808 007 G35 baclofen 40 mg tidamantad ine 100 mg bidvalium 5 mg tidtizanid ine 8 mg tidSupport primo careMonito r [id number] EVA RENEE [facility] on [address] [place] [address] 97706-979 3 02/01/2020 14:28:52 02/05/2020 16:19:03 Neurogenic urinary bladder 925117307 N31.2 suprapubic catheter and judge in placeadd flush of judge cath qhs with 30 cc NS, monitor for returnF/u with urology as scheduledD aily catheter care Monitor [id number] Lexii Zuñiga [facility] on [address] [place] [address] 24617-409 3 02/21/2020 12:41:20 02/23/2020 14:16:33 Seborrheic dermatitis 08762708 L21.8 Start ketoconazo le 2% cream to facial rash BID x 4 weeks then cont PRNMonitor [id number] Lexii Zuñiga [facility] on [address] [place] [address] 74608-071 3 03/04/2020 13:28:16 03/06/2020 09:45:14 Acute urinary tract infection 293095870 N39.0 Will treat with Macrobid (to cover VRE) and Ceftin (to cover providenci a)Culturel le BID x 10 daysMonito r 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 979813628 B95.2 As above Neurogenic urinary bladder 348223092 N31.2 suprapubic catheter and judge in placeF/u with urology as scheduledD aily catheter care Monitor Multiple sclerosis 62768 007 G35 baclofen 40 mg tidamantad ine 100 mg bidvalium 5 mg tidtizanid ine 8 mg tidSupport primo careNeurol ogy followsMon itor [id number] Lexii Zuñiga [facility] on [address] [place] [address] 85377-609 3 03/27/2020 13:51:22 03/29/2020 16:15:11 Asymptomatic bacteriuria 342931222 R82.71 Culture + providenci a stuartiiLi chantelle colonizati on given lack of fever or leukocytos is Defer antibiotic treatmentW ill monitor [id number] Lexii Zuñiga [facility] on [address] [place] [address] 00712-320 3 04/16/2020 15:21:33 04/17/2020 13:36:27 Multiple sclerosis 96819369 G35 With continued right arm painIncrea se methadone 15 mg TIDContbac lofen 40 mg TIDamantad ine 100 mg BIDvalium 5 mg TIDtizanid ine 8 mg TIDgabapen tin 1200 mg TIDSupport primo careNeurol ogy followsMon itor Urinary tr act infectious disease 47223642 N39.0 Complete course CeftinAdd probioticM onitor Neurogenic urinary bladder 781401120 N31.2 suprapubic catheter in placeF/u with urology as scheduledD aily catheter care Monitor [id number] Lexii Zuñiga [facility] on [address] [place] [address] 96788-179 3 04/17/2020 14:27:50 04/18/2020 09:56:34 Multiple sclerosis 86880137 G35 With continued right arm painMethad one 15 mg TIDAdd dilaudid 2 mg Q4h PRNContbac lofen 40 mg TIDamantad ine 100 mg BIDvalium 5 mg TIDtizanid ine 8 mg TIDgabapen tin 1200 mg TIDSupport primo careNeurol ogy followsMon itor [id number] Lexii Zuñiga [facility] on [address] [place] [address] 28271-574 3 04/23/2020 08:28:35 04/24/2020 13:23:59 Multiple sclerosis 60852302 G35 Methadone 15 mg TID Dilaudid 2 mg Q4h PRN for breakthrou gh painbaclof en 40 mg TID amantadine 100 mg BIDvalium 5 mg TIDtizanid ine 8 mg TIDgabapen tin 1200 mg TIDSupport primo careNeurol ogy followsMon itor Neurogenic urinary bladder 569017977 N31.2 suprapubic catheter in placeF/u with urology as scheduledD aily catheter care Monitor [id number] EVA RENEE [facility] on [address] [place] [address] 90337-073 3 05/03/2020 11:44:13 05/06/2020 12:57:00 Allergic conjunctivitis 618930498 H10.11 refresh 2 gtts to right eye BID until resolvedif does not improve change to azestaline gtts or pataday [id number] Lexii Zuñiga [facility] on [address] [place] [address] 98708-033 3 05/06/2020 10:28:12 05/07/2020 13:44:06 Allergic conjunctivitis 324393274 H10.13 Add Zaditor gtts BID x 14 daysMonito r to resolution [id number] Alka Schaeffer MD [facility] on [address] [place] [address] 67697-468 3 05/07/2020 20:00:17 05/13/2020 16:27:03 Multiple sclerosis 60446425 G35 Pain being managed with methadone 15 mg TID, gabapentin 1200 mg TID, and Dilaudid 2 mg Q4h PRN for breakthrou gh painSpasms managed with baclofen 40 mg TID, valium 5 mg TID, and tizanidine 8 mg TID. And on amantadine 100 mg BID and teclidera 240 mg BID for sx prevention .Continue supportive careF/U with neuro as planned. Neurogenic urinary bladder 194849760 N31.2 Continue suprapubic catheter.F /u with urology as scheduledD aily catheter care Monitor Allergic conjunctivitis 963224222 H10.11 Started on Zaditor gtts BID x 14 days yesterday. Continue this and refresh 2 gtts to right eye BID and cetirizine 10 mg qd.Conside r eye consult if not improving. Primary insomnia 6538528 F51.01 Continue melatonin 5 mg qhs, and trazodone 25 mg qhs prnMonitor sleep patterns. Seizure disorder 3313914 02 G40.909 Continue phenytoin 100 ER mg TIDMonitor for seizure activity. Mixed anxi ety and depressive disorder 224492444 F41.8 Continue amitriptyl ine 100 mg qhs and meds as above. Monitor mood. Psych involved. Recurrent urinary tract infection 463866689 N30.20 Continue fosfomycin 3 gms q 2 weeks for prevention .Monitor for sxs. Sinus tachycardia 814144 01 R00.0 Started on metoprolol 25 mg qd during recent hospitaliz ation. Pulse still on high side, but staying <100. Monitor pulse and f/u wiht cardio prn. [id number] MAO Moffett [facility] on [address] [place] [address] 03076-361 3 06/06/2020 11:18:57 06/10/2020 14:38:11 Oxygen saturation below reference range 524624186 R79.81 getting CXR now monitor O2 sat again and if below 90% then apply oxygen at 2 LPM monitor for worsening sxs Constipation 68813400 K5 9.00 senna 8.6 mg 2 bid colace 100 mg bid miralax bid mag citrate 2 x week monitor bowels closely Pain of ri ght elbow joint 5942685489 6392270 M25.521 xray results pending does not appear infected monitor [id number] EVA [facility] on [address] [place] [address] 11219-977 3 07/02/2020 15:17:48 07/04/2020 12:14:22 Constipation 66520509 K59.00 senna 8.6 mg 2 bid colace 100 mg bid miralax bid mag citrate 2 x week Multiple sclerosis 53079 007 G35 Pain being managed with methadone 15 mg TID, gabapentin 1200 mg TID, and Dilaudid 2 mg Q4h PRN for breakthrou gh pain Spasms managed with baclofen 40 mg TID, valium 5 mg TID, and tizanidine 8 mg TID. And on amantadine 100 mg BID and teclidera 240 mg BID for sx prevention . Continue supportive care F/U with neuro as planned. Neurogenic urinary bladder 672805704 N31.2 Continue suprapubic catheter. F/u with urology as scheduled Daily catheter care Recurrent urinary tract infection 220623083 N30.20 hx of, monitor for recurrance Allergic conjunctivitis 225622371 H10.11 cetirizine 10 mg qd Primary insomnia 1388198 F51.01 Continue melatonin 5 mg qhs, and trazodone 25 mg qhs prn Seizure disorder 4376110 02 G40.909 Continue phenytoin 100 ER mg TID Mixed anxi ety and depressive disorder 438585838 F41.8 Continue amitriptyl ine 100 mg qhs and meds as above. Sinus tachycardia 461991 01 R00.0 started on metoprolol succ 25 mg during his stay here due to tachycardi a PCP to monitor Weight loss 32943236 R63 .4 patient will require ensure drinks TID PCP should monitor for continued weight loss Health Concerns Section Related Observation LastModified by Organization Detai ls LastModified Time None Recorded Concern Status LastModified by Organization Details LastModified Time None Recorded Advance Directives Directive Y: Full code Payers Encounter Date Sequence Insurance Name Policy Number Policy Covered Member ID Member ID Guarantor Name 05/03/2020 1 [place] Noe Vieira [id number] Reyna Cladonna 05/06/2020 1 [place] No[place] Vieira [id number] Reyna Cladonna 05/07/2020 1 [place] Noe Vieira [id number] Reyna Clapper 06/06/2020 1 [place] Noe Vieira [id number] Reyna Clapper 07/02/2020 1 [place] Noe Vieira [id number] Reyna [facility] Notes Date Note Type Note Provider Name and Address Organization Details Recorded Time 05/03/2020 text/html This is a 39 yo male LTC resident seen today for acute rounding. Patient is complaining of itching and burning of his right eye with associated redness, would like a provider to assess. Patient resting in his wheelchair, appears in no distress. He states the itching is bothersome, no associated discharge. EVA RENEE [address] [place] [address], [address], [place], [address], [employer] 05/03/2020 12:29:59 05/06/2020 text/html 39 yo male seen for acute rounding. Patient c/o red, itchy, watery eyes. Denies any eye pain, change in vision or purulent discharge. Lexii dhillon, [facility] [employer] 05/06/2020 10:49:17 05/07/2020 text/html This is a 39 yo man, LTC pt., who I am seeing today for a routine MD rounding visit. He has been here since 08/2016 due to MS and difficulty with services in the community. But he tells me today he is moving to a care home. He is excited about this. He has no c/o today, he says the eye drops are helping his eye irritation. Nursing has no concerns. He continues to smoke cigarettes. His PMH includes multiple sclerosis, neurogenic bladder, hepatitis C-s/p Harvoni, and psoriasis. He denies c/o today and nursing has no concerns. Alka Schaeffer MD [address], [address], [place], [address], [facility] [employer] 05/12/2020 14:47:19 06/06/2020 text/html pt seen today fo r acute rounding visit. pt was sent out to hospital on 06/03 for right sided abd pain. pt was found to be impacted, was disempacted in hospital for massive rectal distention and large amount of stool in colon and sent back to facility with order for enema 2 x a week though [employer] changed that to mag citrate twice a week because in the past enemas do not help with his constipation. also of note pt is getting an xray of his right elbow for pain and edema. this was ordered last night for sxs. just now staff notes that his O2 sat is 86%, no SOB noted. lungs clear. 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 MAO Moffett [address], [address], [place], [address], [facility] [employer] 06/06/2020 11:40:22 07/02/2020 text/html This is a 39 yo male, LTC pt., being seen today for discharge summary visit. He has been here since 08/2016 due to MS and difficulty with services in the community. He will be moving to a care home tomorrow who will continue caring for him. He has no c/o today, he is resting in his power chair watching TV. Nursing has no concerns, he continues to smoke cigarettes. OK for patient to dc to care home tomorrow with services, all RXs have been written and sent to [facility]. His PMH includes multiple sclerosis, neurogenic bladder, hepatitis C-s/p Harvoni, and psoriasis. He denies c/o today and nursing has no concerns. EVA RENEE [address], [address], [place], [address], [facility] - [facility] 08/09/2020 11:48:11
--- OUTSIDE RECORDS SUMMARY | 2024-04-13 14:27 | XMS_ITS | Referral Summary ---
Author Organization [facility] Address [address] [place] [address] Care Team Providers Care Catalogue Illustrator Name Role Phone Arvind Crossbelladebbie Primary Care Provider [phone] Encounters Date Type Department Care Team Description 03/03/2024 Refill [facility] [address] [place] [address] Vocal Teacher: Edu Cardoza MA from Last 3 Months Allergies No known active allergies Medications acetaminophen [...] Multiple sclerosis 08/01/2020 History of seizure disorder Social History Tobacco Use Types Packs/Day Years [...] Description 07/13/2024 3:00 PM EDT Office Visit [facility] [address] [place] [address] Vocal Teacher: Isaac Brumfield MD [address] [place] [phone] Insurance [facility] MEDICAID Advance Directives Documents on File Type Date Recorded 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
== END 2024-04-13 13:39 | disposition home or self-care (01) ==
PROVIDERS: PCP Internal Medicine; Visit Provider Internal Medicine Gastroenterology
DX: B19.20 Unspecified viral hepatitis C without hepatic coma (principal); R13.10 Dysphagia, unspecified; K59.09 Other constipation; Z93.1 Gastrostomy status
CPT/HCPCS: 99214

== ENCOUNTER 2024-04-13 10:42 | Outpatient (REF) | payer OTHER, SELFPAY ==
--- NOTE | ~2024-04-13 | XR_ITS ---
EXAMINATION: XR ABDOMEN KUB CLINICAL INDICATION: K59.09 - Other constipation COMPARISON: None. Correlation made with CT abdomen and pelvis 02/26/2024. TECHNIQUE: AP view of the abdomen, supine. FINDINGS: A G-tube is present with the balloon overlying the antrum of the stomach. A percutaneous suprapubic bladder catheter is in place. Extensive fecal material is seen in the ascending, transverse, descending colon and rectum, consistent with obstipation. There is mild gaseous distention of the sigmoid without significant stool present. Sigmoid is mildly redundant. No abnormally dilated loops of small bowel. No abnormal soft tissue calcification seen within confines of extensive overlying stool. No suspicious bone abnormalities. Mild to moderate degenerative arthritis in both hip joints. XR/XR KUB IMPRESSION: 1. Obstipation. 2. No abnormal dilatation of small bowel loops. 3. Suprapubic catheter, and G tube in good position. Electronically signed by: Aayush Boogie MD 04/13/2024 01:07 PM [facility]
--- OUTSIDE RECORDS SUMMARY | 2024-04-13 16:08 | XMS_ITS | Encounter Summary ---
Author Organization [facility] Address [address] [place] [address] Care Team Providers Care Vault Installer Name Role Phone Tay Spencerdebbie Primary Care Provider [phone] Reason for Visit * Reason Onset Date Comments Fax Referral 07/29/2020 Encounter Details Date Type Department Care Team (Late st Contact Info) Description 07/29/2020 Telephone [facility] Central Scheduling Department [address] [place] [address] Telephone Intake, Staff Fax Referral Social History [...] She states that she has power of civil litigation attorney. Noe will be coming to the initial visit with someone from his penitentiary, but she is unable to attend the first visit. She will have the penitentiary bring 1. Copy of power of civil litigation attorney, 2. MRI results report from [facility] 2017. 3. Medication list, 4. Most recent PCP note. (she does not know PCP's name at the moment.) I have sent her the [employer] link, so that she can also send us records thru [employer]. His mother adds that he is a poor historian. * Telephone Encounter - Nickolas Sam - 07/29/2020 1:16 PM EDT [facility] has medical records of pt Pt's mother said the most recent MRI was in September 2016. To obtain this, mother said she was having difficult time. [facility] wants [facility] to fax them a request and they will send records. [facility] fax number: [phone] documented in this encounter Plan of Treatment Upcoming Encounters Date Type Department Care Team (Late st Contact Info) Description 07/13/2024 3:00 PM EDT Office Visit [facility] [address] [place] [phone] Rough Rounder Machine: Isaac Brumfield MD [address] [place] [address] [phone] documented as of this encounter Visit Diagnoses Not on filedocumented in this encounter Care Teams Vault Installer Relationship Specialty Start Date End Date Emma Cross [address] [place] [address] PCP - General Internal Medicine 08/01/20 documented as of this encounter
--- OUTSIDE RECORDS SUMMARY | 2024-04-13 16:08 | XMS_ITS | Data Portability ---
Author Organization [place] [facility] Address [address] [place] [phone] Care Team Providers Care Terrazzo Grinder Name Role Phone REMYKELSIE PADILLACARMINAANGELA Primary Care Provider Assessment Encounter Date Assessment Date Assessment LastModified by Organization Details LastModified Time 09/20/2020 09/20/2020 Time On Scene with Patient: 00:58:07 DDX: catheter obstruction, UTI, dislodged catheter. Bedside ultrasound noted with distended bladder and proper placement of catheter within bladder. The bladder was decompressed a bit by removing urine using irrigation catheter. This dislodged the sediment and clogged catheter. There was still questionable flow so catheter was changed out with same size (#16 Fr) catheter into the bladder. Large volume of urine removed. Total volume (and still draining) over 700 ml of cloudy, foul smelling urine with large amount of sediment. Pt did not have discomfort with this obstruction. IT was advised to the team to investigate a bladder scanner to assess patient's bladder volumes intermittently. Further, patient has FU with Dr. Zepeda urology in the next week. They will bring up to him getting a larger catheter. Discussed that urinalysis and urine culture to be done. Mother of patient called and updated with plan and agreeable. Pt in his power chair at completion of visit. Not available 09/20/2020 17:34:29 11/06/2020 11/06/2020 Opened in error, unable to reach [facility] [email or web address] Not available 11/06/2020 10:35:14 11/07/2020 11/07/2020 Brief History: [age] y/o M PMH MS, neurogenic bladder s/p suprapubic catheter, wheelchair mobility, seizures, dysphagia, substance abuse, smoker, psoriasis who presents with rash on face with concern for recent swelling around R eye. MS medication recently d/c'd. Pt is new to this provider and new to . Has had the rash in the past. Summary of Exam: VSS, afebrile. Wheelchair bound, non-toxic appearing. Conversational, good historian. LS CTAB. Psoriasis on face. No edema or asymetry. Work up/Results: Clinical exam DDx considered & Medical Decision Making: S/Sx not consistent for orbital cellulitis, preseptal cellulitis, trauma, SJS or DRESS. Pt reports dry eyes but no pain and no concerns for corneal abrasion at this time. Possible adverse reaction from discontinuation of his MS medication but acute on chronic flare of psoriasis appreciated. Pt provided with triamcinolone ointment and lubricating eye drops PRN with lubricating eye ointment for use at bedtime. Counseled to follow up with PCP. In order to obtain further information and compare any laboratory results/values, I have accessed records at nursing facility. This information was pertinent in my medical decision making today. Proper Personal Protective Equipment (PPE), including were donned and doffed appropriately and all equipment cleaned using approved technique with germicidal disposable wipes prior to and after care of this patient according [facility]. Time On Scene with Patient: 00:41:04 amita Not available 11/07/2020 20:14:06 03/26/2021 03/26/2021 Proper Personal Protective Equipment (PPE), including gloves, gown, shoe covers, eye protection and Envo masks were donned and doffed appropriately and all equipment cleaned using approved technique with germicidal disposable wipes prior to and after care of this patient [facility]. Overview/History: 40 yo male w/PMHx of MS, neurogenic bladder s/p suprapubic catheter, wheelchair mobility, seizures, dysphagia, substance abuse, smoker, psoriasis. long-term staff states the patient has nasal congestion for the last two days. Exam: Exam: Constitutional: 40y/o male well developed, well nourished, ill appearing, in NAD. Eyes: PERRL at 4mm, EOM's intact, No swelling, no discharge, sclera / conjunctiva clear ENT: TMs/ Canals clear without evidence of infection, no nasal discharge, erythema w/o exudate noted in oropharynx, moist mucous membranes, no lymphadenopathy CV: RRR, no MRGs, normal pulses, no edema LS: CTA b/l, speaks full sentences w/o increased work to breath psych: calm, cooperative, non-manic DDx considered, but not limited to: COVID 19 possible with prevalence in community, less likely with no symptoms save for congestion, Influenza not likely with symptoms not including high fever, mylagias/arthralgi as, Other viral URI possible Work up/Results: none Plan/Discussion: Collect SARS CoV-2 SAULO collected to be sent to [facility] for analysis. Discussed the patient does not have to self-quarantined per [facility] because he is fully vaccinated and boostered against COVID and has no known sick contacts. COVID test results should be completed in 2 to 4 days, you will receive a phone call with positive results, no call for negative results. Patient and [facility] staff endorse understanding and agrees with this plan. In order to obtain further information and compare any laboratory results/values, I have accessed patient records on the [employer]. This information was pertinent in my medical decision making today. [email or web address] Not available 03/26/2021 17:28:01 Plan of Treatment Reminders Order Date Submit Date Provider Last Modified By Organization Details Last Modified Time Details Appointments None recorded. Lab unlisted lab - urinalysis w/reflex culture 2020 021 [facility], [address] [place], [address], 1 12:02:43 unlisted lab - covid-19 (novel coronavirus ) PCR 2021 022 [email or web address], [address] [place], [address], 2 18:27:45 Referral None recorded. Procedures None recorded. Surgeries None recorded. Imaging None recorded. Medication Orders triamcinolo ne acetonide 0.025 % topical ointment 2020 021 [facility], [address] [place] [address], [id number], 19:56:42 Refresh P.M. 57.3 %-42.5 % eye ointment 2020 [facility], [address] [place] [address], [id number], 19:56:44 Artificial Tears (glycerin-p eg) 1 %-0.3 % eye drops [address] [facility], [address] [place] [address], [address], [id number], 19:56:46 Patient TargetsNo targets recorded. Patient Instructions Encounter Date Encounter Id Patient Instructions Last Modified By Organization Details Last Modified Time 09/20/[address] [id number] came to the [facility] to evaluate Noe for a problem with his suprapubic catheter. His catheter was blocked and not draining. We changed his catheter and collected a urine to be sent to the lab. We will see what the urine and culture shows and initiate treatment. YOu should make sure his catheter is draining. Please call his PCP for [facility] to assess his catheter for patency. If you have any concerns please get him re-evaluated. Remember that changing a suprapubic catheter is not always possible with [facility]. IT is provider dependent. If there are fevers, chills or you feel he is worse, please call 911 and go to the ED> Not available 09/20/2020 15:37:53 11/07/2020 [id number] psoriasis: care instructions [email or web address] [id number] Not available 11/07/2020 19:49:34 dry eyes: care instructions [email or web address] [id number] Not available 11/07/2020 19:49:29 Please follow up with your primary care provider or specialist to be rechecked or seek medical attention if your symptoms do not go away or get worse. If you have additional concerns or develop a change in your condition between 8am-10pm, please call [facility] at [phone] to help navigate your care. [email or web address] [id number] Not available 11/07/2020 19:50:03 03/26/2021 [id number] Inhaler Instructions Before use, you need to prime the inhaler: ? Take the cap off the mouthpiece and put the inhaler in the spacer ? Shake the inhaler for 5 seconds ? Hold the inhaler upright with 1 finger on the top of the canister, the thumb on the bottom of the inhaler, and your other hand holding the spacer ? Express a large breath ? Close lips around spacer ? Press down on the canister ? After you press down on the canister, breathe (or have your child breathe in) deeply and slowly and hold your breath for 10 seconds ? Take out of your mouth and slowly exhale ? If you were instructed to take 2 puffs of the inhaler, wait one minute before you give the second puff. Shake the inhaler again before the second puff. ? If the inhaler is a steroid medicine (also called a ? g lucocorticoid? or ? c orticosteroid? ), rinse out your mouth, gargle, and spit out the water Cleaning: If you use the inhaler every day, you need to clean it at least once a week. If you use less often, clean the inhaler when you see powder in or around the hole. To clean an inhaler: ? Remove the canister and cap from the mouthpiece. Do not wash the canister or put the canister under water. ? Run warm water through the mouthpiece for 30 to 60 seconds ? Shake the water off of the mouthpiece and let it air dry Clean the spacer every 1-2 weeks. First, remove the inhaler from the spacer. Wash the spacer with warm water and dishwashing soap, but do NOT rinse it. Then let it air dry. Leaving the spacer a little soapy after cleaning actually helps it work better. [email or web address] Not available 03/26/2021 17:02:00 Reason for Referral None Reported. Results Created Date Observation Date Name Description Value Unit Range Abnormal Flag Note LastModifiedBy Organization Detail LastModifiedTime 09/21/1909/24/2020 URINE CULTU RE specimen description URINE Not Available [facility] [address] [place], [address], 09/24/2020 14:40:30 09/21/19 21 09/24/2020 URINE CULTU RE special requests NONE Not Available [facility] [address] [place], [address], 09/24/2020 14:40:30 09/21/19 21 09/24/2020 URINE CULTU RE culture >100,0 00 COL/ML PROTEU S MIRABI LIS abnormal Not Available [facility] [address] [place], [address], 09/24/2020 14:40:30 09/21/19 21 09/24/2020 URINE CULTU RE report status FINAL 2020 Not Available [facility] [address] [place], [address], 09/24/2020 14:40:30 09/21/19 21 09/24/2020 URINE CULTU RE organism ORGANI SM >100,0 00 COL/ML PROTEU S MIRABI LIS Not Available [facility] [address] [place], [address], 09/24/2020 14:40:30 09/21/19 21 09/24/2020 URINE CULTU RE method METHOD MIN. INHIB. CONC. (MCG/M L) Not Available [facility] [address] [place], [address], 09/24/2020 14:40:30 09/21/19 21 09/24/2020 URINE CULTU RE ampicillin AMPICI LLIN RESIST ANT resistant Not Available [facility] [address] [place], [address], 09/24/2020 14:40:30 09/21/19 21 09/24/2020 URINE CULTU RE ampicillin/s ulbactam AMPICI LLIN/S ULBACT AM RESIST ANT resistant Not Available [facility] [address] [place], [address], 09/24/2020 14:40:30 09/21/19 21 09/24/2020 URINE CULTU RE amoxicillin/ clavulanic acid AMOXIC ILLIN/ CLAVUL AN RESIST ANT resistant Not Available [facility] [address] [place], [address], 09/24/2020 14:40:30 09/21/19 21 09/24/2020 URINE CULTU RE cefazolin CEFAZO RAVIN RESIST ANT resistant Not Available [facility] [address], [address], 09/24/2020 14:40:30 09/21/19 21 09/24/2020 URINE CULTU RE cefepime CEFEPI ME SUSCEP TIBLE susceptib le Not Available [facility] [address], [address], 09/24/2020 14:40:30 09/21/19 21 09/24/2020 URINE CULTU RE ceftriaxone CEFTRI AXONE SUSCEP TIBLE susceptib le Not Available [facility] [address] [place], [address], 09/24/2020 14:40:30 09/21/19 21 09/24/2020 URINE CULTU RE ciprofloxaci n CIPROF LOXACI N RESIST ANT resistant Not Available [facility] [address] [place], [address], 09/24/2020 14:40:30 09/21/19 21 09/24/2020 URINE CULTU RE ertapenem ERTAPE NEM SUSCEP TIBLE susceptib le Not Available [facility] [address] [place], [address], 09/24/2020 14:40:30 09/21/19 21 09/24/2020 URINE CULTU RE gentamicin GENTAM ICIN SUSCEP TIBLE susceptib le Not Available [facility] [address] [place], [address], 09/24/2020 14:40:30 09/21/19 21 09/24/2020 URINE CULTU RE levofloxacin LEVOFL OXACIN RESIST ANT resistant Not Available [facility] [address] [place], [address], 09/24/2020 14:40:30 09/21/19 21 09/24/2020 URINE CULTU RE meropenem MEROPE NEM SUSCEP TIBLE susceptib le Not Available [facility] [address] [place], [address], 09/24/2020 14:40:30 09/21/19 21 09/24/2020 URINE CULTU RE nitrofuranto in NITROF URANTO IN RESIST ANT resistant Not Available [facility] [address] [place], [address], 09/24/2020 14:40:30 09/21/19 21 09/24/2020 URINE CULTU RE piperacillin /tazobactam PIPERA CILLIN /TAZOB AC SUSCEP TIBLE susceptib le Not Available [facility] [address] [place], [address], 09/24/2020 14:40:30 09/21/19 21 09/24/2020 URINE CULTU RE trimeth/sulf amethox TRIMET H/SULF AMETHO X SUSCEP TIBLE susceptib le Not Available [facility] [address] [place], [address], 09/24/2020 14:40:30 09/21/19 21 09/24/2020 URINE CULTU RE tetracycline TETRAC YCLINE RESIST ANT resistant Not Available [facility] [address] [place], [address], 09/24/2020 14:40:30 03/26/19 22 03/29/20212018 NOVEL CORON AVIRU S, PCR covid-19, PCR DETECT ED abnormal Refer ence range : NOT DETEC RUDDY (NOTE ) A Detec ruddy resul t indic ates that the patie nts' speci men was posit primo for SARS- CoV-2 RNA. Test Metho d: Nucle ic Acid Ampli ficat ion Test inclu ding rever se trans cript ion polym erase chain react ion (RT-P CR) and trans cript ion media ruddy ampli ficat ion (TMA) . The test metho d meets the [place] Cente rs for Disea se Contr ol and preve ntion ([facility]) pre depar ture and arriv al requi remen t for viral test for COVID -19 dated 2020. Testi ng requi remen ts for romina ballesteros may cash e with time. The patie nt is respo nsibl e for deter minin g the test requi remen ts for each natio n while they are romina ballesteros. = This test has been autho rized by the FDA under an Emerg ency Use Autho rizat ion (EUA) for use by autho rized labor atori es. = Pleelmer e melvin w the Fact Sheet s and FDA autho rized label ing avail able for healt h care provi ders and patie nts using the follo wing websi elva: https ://shay w.que stdia gnost ics.c om/ho me/Co vid-1 9/HCP /Ques tIVD/ fact- sheet .html https ://shay w.que stdia gnost ics.c om/ho me/Co vid-1 9/Pat ients / [facility] IVD/f act-s heet. html Due to the curre nt publi c healt h emerg ency, [facility] is accep ting sampl es from appro priat e clini donell sourc es colle cted using wide varie ty of swabs and trans port media for COVID -19. Not detec ruddy test resul ts deriv ed from speci mens recei thomas in non- comme rcial ly manuf actur ed viral colle ction kits or those not yet autho rized by FDA for COVID -19 testi ng shoul d be cauti ously evalu ated and take extra preca ution s such as addit ional clini donell monit oring , inclu ding colle ction of an addit ional speci men. Addit ional infor matio n about COVID -19 can be found at the [facility] websi te: www.Fangtek uestD iagno [employer] .[employer]/ Covid 19. = Test Perfo rmed by: [facility], [address] [place]. [address] . Labor atory Dire tor: Sridevi nettles MD. Not Available [facility] [address] [place], [address], 03/29/2021 05:52:14 Result Notes None recorded. Procedures Surgical History Date Name Laterality Status Provider Name and Address Organization Details Recorded Time Mcghee Catheter Insertion - completed CAMACHO BAILEY NP [address], [place], [address], [place] - [facility] 09/20/2020 17:24:40 Imaging Results None recorded. Procedure Notes None recorded. Medical Equipment None Reported. Allergies Allergen ID Allergen Name Allergen Category Reaction Reaction Severity Criticality Documentation Date Start Date Code Code System Note Provider Name and Address Organization Details Recorded Time [id number] honey bee venom medicatio n Not available Not available Not available 09/20/2020 69462 [id number] RxNorm CAMACHO BAILEY NP [address] [place], [address], [place] [facility] 15:30:02 Medications Name Sig Start Date Stop Date Status Note LastModified by Organization Details LastModified Time amantadine HCl 100 mg tablet TAKE 1 TABLET BY MOUTH TWICE DAILY FOR STIFFNESS OR TREMORS 11/07 completed Not Available Not Available Not Available acetaminoph en 325 mg tablet TAKE 2 TABLETS (650) BY MOUTH EVERY 6 HOURS NEEDED FOR HEADACHE, MILD PAIN, FEVER >100F , MAY CRUSH AND GIVE IN APPLESAUC E PUDDING OR YOG active Not Available Not Available No t Available gabapentin 600 mg tablet TAKE 2 TABLETS (1,200 MG TOTAL) BY MOUTH 3 TIMES A DAY. active Not Available Not Available No t Available Vitamin C 500 mg tablet TAKE 1 TABLET BY MOUTH TWICE DAILY CRUSH. GIVE IN APPLESAUC E, PUDDING, OR YOGURT. active Not Available Not Available No t Available trazodone 50 mg tablet TAKE 1/2 TABLET BY MOUTH DAILY AT BEDTIME NEEDED FOR SLEEP active Not Available Not Available No t Available fosfomycin tromethamin e 3 gram oral packet 3g every 2 weeks active Not Available Not Available No t Available senna 8.6 mg tablet TAKE 2 TABLETS BY MOUTH TWICE DAILY active Not Available Not Available No t Available methadone 10 mg tablet TAKE 1 TABLET BY MOUTH TONIGHT THEN STARTING TOMORROW, START TAKING 1 TABLET DAILY FOR 7 DAYS (THEN GO DOWN TO 5 MG TABS) active Not Available Not Available No t Available Milk of Magnesia 400 mg/5 mL oral suspension TAKE 30ML BY MOUTH EVERY DAY NEEDED FOR NO BOWEL MOVEMENTS IN 2 DAYS, USE FIRST active Not Available Not Available No t Available phenytoin sodium extended 100 mg capsule TAKE 1 CAPSULE BY MOUTH TWICE DAILY active Not Available Not Available No t Available Ready-To-Us e Enema 19 gram-7 gram/118 mL GIVE ONE RECTALLY NEEDED FOR NO BOWEL MOVEMENT IN 4 DAYS, USE 3RD IF NO EFFECT FROM DUCOLAX SUPPOSITO RY active Not Available Not Available No t Available sulfamethox azole 800 mg-trimetho prim 160 mg tablet TAKE 1 TABLET BY MOUTH TWICE DAILY 5 DAYS FOR URINARY TRACT INFECTION active Not Available Not Available No t Available baclofen 20 mg tablet TAKE 2 TABLETS BY MOUTH THREE TIMES DAILY WITH FOOD OR MILK active Not Available Not Available No t Available DOK 100 mg capsule TAKE 1 CAPSULE BY MOUTH TWICE DAILY active Not Available Not Available No t Available bisacodyl 10 mg rectal suppository GIVE RECTALLY NEEDED FOR NO BOWEL MOVEMENT IN 3 DAYS, USE SECOND IF NO EFFECT FROM MILK OF MAGNESIA active Not Available Not Available No t Available metoprolol tartrate 50 mg tablet TAKE 1/2 OF A TABLET (25MG) BY MOUTH TWICE DAILY active Not Available Not Available No t Available triamcinolo ne acetonide 0.025 % topical ointment APPLY A THIN LAYER TO THE AFFECTED AREA(S) BY TOPICAL ROUTE 2 TIMES PER DAY 2020 active Not Available Not Available Not Avai lable gabapentin 300 mg capsule TAKE 4 CAPSULES (1200MG) BY MOUTH THREE TIMES DAILY FOR GENERALIZ ED PAIN . MAY OPEN AND MIX INTO APPLESAUC E PUDDING OR YOGURT active Not Available Not Available No t Available magnesium citrate oral solution DRINK 10 OUNCES IN THE EVENING ON WEDNESDAY AND FRIDAYS BY MOUTH FOR PREVENTIO N OF CONSTIPAT ION. (ADMIN 5 OUNCES DILUTED WITH JUICE THEN REMAI active Not Available Not Available No t Available metoprolol succinate ER 25 mg tablet,exte nded release 24 hr TAKE 1 TABLET BY MOUTH EVERY DAY active Not Available Not Available No t Available epinephrine 0.3 mg/0.3 mL injection, auto-inject or GIVE 1 DOSE INTRAMUSC ULARLY NEEDED FOR BEE STINGS/AN APHYLACTI C REACTIONS , CALL 911 AFTER ADMINISTR ATION active Not Available Not Available No t Available cefuroxime axetil 500 mg tablet TAKE 1 TABLET BY MOUTH TWICE DAILY FOR 7 DAYS 11/07 completed Not Available Not Available Not Available polyethylen e glycol 3350 17 gram/dose oral powder TAKE 17 GM BY MOUTH 2 TIMES A DAY DIRECTED . MIXED INTO WATER, JUICE OR TEA. active Not Available Not Available No t Available methadone 5 mg tablet AFTER FINISHING SUPPLY OF 10 MG TABS, START 5 MG DAILY FOR 7 DAYS, THEN 5 MG DAILY EVERY OTHER DAY FOR 7 DAYS, THEN DISCONTIN UE NEEDED FO active Not Available Not Available No t Available amitriptyli ne 100 mg tablet TAKE 1 TABLET BY MOUTH DAILY AT BEDTIME active Not Available Not Available No t Available doxycycline hyclate 100 mg tablet TAKE 1 TABLET BY MOUTH TWICE DAILY 11/07 completed Not Available Not Available Not Available loratadine 10 mg tablet TAKE 1 TABLET BY MOUTH EVERY MORNING FOR ALLERGIES OR NASAL CONGESTIO N MAY CRUSH AND GIVE IN APPLESAUC E, PUDDING, OR YOGURT active Not Available Not Available No t Available diazepam 5 mg tablet TAKE 1 TABLET BY MOUTH THREE TIMES DAILY NEEDED FOR MUSCLE SPASM active Not Available Not Available No t Available Artificial Tears (glycerin-p eg) 1 %-0.3 % eye drops Apply 2 drops 4 times a day by ophthalmi c route as needed for 14 days. 2020 active Not Available Not Available Not Avai lable melatonin 5 mg tablet TAKE 1 TABLET BY MOUTH DAILY AT BEDTIME active Not Available Not Available No t Available GaviLyte-G 236 gram-22.74 gram-6.74 gram-5.86 gram oral solution TAKE 240ML BY MOUTH EVERY 10 MINUTES UNTIL FECAL EFFLUENT IS CLEAR active Not Available Not Available No t Available Refresh P.M. 57.3 %-42.5 % eye ointment Apply 1 applicati on every day by ophthalmi c route at bedtime for 14 days. 2020 active Not Available Not Available Not Avai lable Tecfidera 240 mg capsule,del ayed release 11/07 completed Not Available Not Available Not Available Vitals Date Recorded Heart rate Respiratory rate Body temperature Oxygen saturation Oxygen saturation in Arterial blood by Pulse oximetry Systolic blood pressure Diastolic blood pressure Provider Name and Address Organization Details Last Updated DateTime 1 89 /min 18 /min 98.9 [degF] 93 % 93 % 144 mm[Hg] 82 mm[Hg] Not Available [facility] 1 14:55:02 Date Recorded Body temperature Respiratory rate Oxygen saturation Oxygen saturation in Arterial blood by Pulse oximetry Heart rate Systolic blood pressure Diastolic blood pressure Provider Name and Address Organization Details Last Updated DateTime 1 96.2 [degF] 16 /min 97 % 97 % 80 /min 118 mm[Hg] 80 mm[Hg] Not Available [facility] 19:36:01 Date Recorded Oxygen saturation Oxygen saturation in Arterial blood by Pulse oximetry Heart rate Body temperature Respiratory rate Systolic blood pressure Diastolic blood pressure Provider Name and Address Organization Details Last Updated DateTime 1 97 % 97 % 80 /min 96.2 [degF] 16 /min 118 mm[Hg] 80 mm[Hg] Not Available [facility] 1 19:41:03 Date Recorded Heart rate Body temperature Respiratory rate Systolic blood pressure Diastolic blood pressure Provider Name and Address Organization Details Last Updated DateTime 2 88 /min 97 [degF] 14 /min 130 mm[Hg] 80 mm[Hg] Not Available [facility] 2 17:13:03 Date Recorded Oxygen saturation Oxygen saturation in Arterial blood by Pulse oximetry Provider Name and Address Organization Details Last Updated DateTime 03/26/2021 98 % 98 % Not Available [facility] 03/26/2021 17:14:41 Social History Question Answer Notes LastModified by Organizat ion Details LastModified Time Tobacco Smoking Status Current Some Day Smoker BRET MONZON, TIN [address] [place] [address], [phone], [place] - [facility] 11/07/2020 19:39:56 What Is Your Level Of Alcohol Consumption? None [email or web address] Information not available 11/07/2020 What Is Your Code Status? Full Code [id number] Information not available 11/07/2020 Fall Risk: Do You Feel Unsteady When Standing Or Walking? Yes [email or web address] Information not available 11/07/2020 Excessive Alcohol Or Drug Use No [email or web address] Information not available 11/07/2020 Does This Patient Have A PCP? Yes [email or web address] Information not available 11/07/2020 Do You Use Any Illicit Or Recreational Drugs? No [email or web address] Information not available 11/07/2020 How Many Years Have You Smoked Tobacco? 20 [email or web address] Information not available 11/07/2020 Do You Or Have You Ever Used Any Other Forms Of Tobacco Or Nicotine? No [email or web address] Information not available 11/07/2020 Sex: Unknown Functional Status None recorded. Mental Status None recorded. Family History Relationship Description Onset Age of this Age Resolved Age Notes LastModified by Organization Details LastModified Time Father No current problems or disability [email or web address] Not available 0 11/07/2020 19:38:39 Mother No current problems or disability [email or web address] Not available 0 11/07/2020 19:38:39 Notes:Pt denies FH Medical History Condition Response Coronary Artery Disease N Stroke N Asthma N High Cholesterol N Pulmonary Embolism N Hypertension N Kidney Disease N Past Encounters Encounter ID Performer Location Encounter Start Date Encounter Closed Date Diagnosis/Indication Diagnosis SNOMED-CT Code Diagnosis ICD10 Code Diagnosis Note [id number] CAMACHO BAILEY NP [facility] [address] [place] [address] 09/20/2020 14:54:22 09/23/2020 18:41:47 Mechanical complication of suprapubic catheter 807861146 T83.198A [id number] GABY BUTLER NP [facility] [address] [place] [address] 11/06/2020 10:21:09 11/06/2020 15:09:11 [id number] BRET MONZON NP [facility] [address] [place] [address] 11/07/2020 19:06:33 11/08/2020 21:41:04 Psoriasis of face 773331555 L40.9 acute on chronic Adverse re action to drug 45270230 T50.905A Dry eyes 198724958 H04.1 29 [id number] DERECK SALINAS NP [facility] [address] [place] [address] 03/26/2021 17:01:03/31/2021 11:43:30 Exposure to communicable disease 923598410 Z20.9 Health Concerns Section Related Observation LastModified by Organization Detai ls LastModified Time None Recorded Concern Status LastModified by Organization Details LastModified Time None Recorded Advance Directives Directive None Recorded Payers Encounter Date Sequence Insurance Name Policy Number Policy Covered Member ID Member ID Guarantor Name 09/20/2020 2 [place] Noe Vieira [id number] Noe Vieira 09/20/2020 1 [place] Vieira [id number] Noe Vieira 11/06/2020 2 [place]e Vieira [id number] Noe Vieira 11/06/2020 1 [place] Noe Vieira [id number] Noe Vieira 11/07/2020 2 [place] Noe Vieira [id number] Noe Vieira 11/07/2020 1 [place] Noe Vieira [id number] Noe Vieira 03/26/2021 2 [place] Noe Vieira [id number] Noe Vieira 03/26/2021 1 [place] Noe Vieira [id number] Noe Vieira Notes Date Note Type Note Provider Name and Address Organization Details Recorded Time 09/20/2020 text/html 39 year-old male with history of progressive MS, wheelchair bound ,suprapubic catheter, substance abuse, chronic methadone use for pain control, whose staff calls [facility] to the [facility] to evaluate patient's suprapubic catheter.Pt had a suprapubic catheter replaced about 1 week ago when he was hospitalized. The staff noticed that there has been no output today and concerned that the catheter is blocked. Pt denies any pain or discomfort.There has been no fevers or change in appetite or behavior.The staff note that patient's mother called and was concerned that patient called her and seemed to speak gibberish. PT has been acting his norm per staff of [facility].Pt denies any difficulty in breathing and has no complaints. CAMACHO BAILEY NP [address], [place], [address], [place] [facility] 09/20/2020 17:34:37 11/06/2020 text/html Opened in error, unable to reach [facility] GABY BUTLER NP [address], [place], [address], [place] [facility] 11/06/2020 10:35:31 11/07/2020 text/html Noe Vieira is a 39 y/o M PMH MS, neurogenic bladder s/p suprapubic catheter, wheelchair mobility, seizures, dysphagia, substance abuse, smoker, psoriasis who presents with rash on face with concern for recent swelling around R eye. Nursing staff report the patient had his Tecfidera (MS med) d/c'd and was told this could be a risk. This eye swelling has resolved per nursing staff. Pt reports no pain with EOM but his eyes feel dry. BRET MONZON NP [address], [place], [address], [place] [facility] 11/07/2020 20:14:13 03/26/2021 text/html 40 yo male who i s known to but new to this provider. Patient's PMHx includes MS, neurogenic bladder s/p suprapubic catheter, wheelchair mobility, seizures, dysphagia, substance abuse, smoker, psoriasis; he resides in a [facility] setting. long-term staff endorse the patient has been experiencing congestion, with increased sniffling for the last two days; he is vacc., and boostered against COVID 19; deny any active COVID residents in building. Patient denies fever, chills, eye/ear pain, changes in vision, chest pain, palpitations, abdominal pain, N/V/D. DERECK SALINAS NP [address], [place], [address], [place] [facility] 03/26/2021 20:11:33
--- OUTSIDE RECORDS SUMMARY | 2024-04-13 16:08 | XMS_ITS | Encounter Summary ---
Author Organization [facility] Address [address] [place] [address] Care Team Providers Care Forging Die Sinker Name Role Phone Emam Cross Primary Care Provider [phone] Reason for Visit * Reason Onset Date Comments RX refill 06/19/2021 Encounter Details Date Type Department Care Team (Late st Contact Info) Description 06/19/2021 Telephone [facility] Central Scheduling Department [address] [place] [address] Telephone Intake, Staff RX refill Social History [...] anything yet pls follow up once complete [phone] documented in this encounter Plan of Treatment Upcoming Encounters Date Type Department Care Team (Late st Contact Info) Description 07/13/2024 3:00 PM EDT Office Visit [facility] [address] [place] [address] Wet End Operator: Isaac Brumfield MD [address] [place] [address] documented as of this encounter Visit Diagnoses Not on filedocumented in this encounter Care Teams Forging Die Sinker Relationship Specialty Start Date End Date Emma Cross [address] [place] [address] PCP - General Internal Medicine 08/01/20 documented as of this encounter
--- OUTSIDE RECORDS SUMMARY | 2024-04-13 16:08 | XMS_ITS | Encounter Summary ---
Author Organization [facility] Address [address] [place] [address] Care Team Providers Care Director Of Professional Services Name Role Phone Emma Cross Primary Care Provider [phone] Reason for Visit * Reason Onset Date Comments Reschedule 04/01/2021 Encounter Details Date Type Department Care Team (Late st Contact Info) Description 04/01/2021 Telephone [facility] Central Scheduling Department [address] [place] [address] Telephone Intake, Staff Reschedule Social History Tobacco [...] Davide - 04/01/2021 3:49 PM EST Amy Napkin Band Wrapper rescheduling pt's MS appt for 04/03 with Isaac Hugo MD Per DT, rescheduled appt for 09/[address] Hugo documented in this encounter Plan of Treatment Upcoming Encounters Date Type Department Care Team (Late st Contact Info) Description 07/13/2024 3:00 PM EDT Office Visit [facility] [address] [place] [address] Pharmacy Benefit Manager: Laxmi Hugo, Isaac May MD [address] [place] [phone] documented as of this encounter Visit Diagnoses Not on filedocumented in this encounter Care Teams Director Of Professional Services Relationship Specialty Start Date End Date Emma Cross [address] [place] [address] PCP - General Internal Medicine 08/01/20 documented as of this encounter
--- OUTSIDE RECORDS SUMMARY | 2024-04-13 16:09 | XMS_ITS | Encounter Summary ---
Author Organization [facility] Address [address] [place] [address] Care Team Providers Care Senior Dynamics Crm Developer Name Role Phone Emma Cross Primary Care Provider [phone] Encounter Details Date Type Department Care Team (Late st Contact Info) Description 07/15/2021 Telephone [facility] Central Scheduling Department [address] [place] [address] Telephone Intake, Staff Social History Tobacco Use [...] Hugo Caregiver reqs prescription be refilled at [facility] [phone] Sending TE to [facility] Mutiple Sclerosis Clinical Staff per DT to please obtain order from provider and send to above named pharmacy documented in this encounter Plan of Treatment Upcoming Encounters Date Type Department Care Team (Late st Contact Info) Description 07/13/2024 3:00 PM EDT Office Visit [facility] [address] [place] [address] Institutional Cook: Isaac Brumfield MD [address] [place] [address] documented as of this encounter Visit Diagnoses Not on filedocumented in this encounter Care Teams Senior Dynamics Crm Developer Relationship Specialty Start Date End Date Emma Cross [address] [place] [address] PCP - General Internal Medicine 08/01/20 documented as of this encounter
--- OUTSIDE RECORDS SUMMARY | 2024-04-13 16:09 | XMS_ITS | Clinical Summary ---
Author Organization [facility] Address [address] [place] [address] Care Team Providers Care Hand Cloth Examiner Name Role Phone Tay Emma Primary Care Provider [phone] Allergies No known active allergies Medications acetaminophen [facility] [address] [place] [phone] Cleaner And Trimmer: Edu Cardoza MA from Last 3 Months [...] [facility] [address] [place] [address] Cleaner And Trimmer: Isaac Brumfield MD [address] [place] [address] Health Maintenance Due Date Last Done Comments [...] patient[place] [id number] [facility] MEDICAID Advance Directives Documents on File Type Date Recorded Patient Revolving Inventory Clerk Expl anation Power of Mental Health Professional 08/21/2020 6:37 PM 2018 Care Teams Hand Cloth Examiner Relationship Specialty Start Date End Date Emma Cross [address] [place] [address] PCP - General Internal Medicine 08/01/20
--- OUTSIDE RECORDS SUMMARY | 2024-04-13 16:09 | XMS_ITS | Referral Summary ---
Author Organization [facility] Address [address] [place] [address] Care Team Providers Care Clinic Supervisor Name Role Phone Arvind Crossbelladebbie Primary Care Provider [phone] Encounters Date Type Department Care Team Description 03/03/2024 Refill [facility] [address] [place] [phone] Aluminum Shingle Roofer: Edu Cardoza MA from Last 3 Months [...] Description 07/13/2024 3:00 PM EDT Office Visit [facility] [address] [place] [address] Aluminum Shingle Roofer: Isaac Brumfield MD [address] [place] [address] Insurance [facility] MEDICAID Advance Directives Documents on File Type Date Recorded Patient Turbine Assembler Expl anation Power of Rad Technologist 08/21/2020 6:37 PM 2018 Care Teams Clinic Supervisor Relationship Specialty Start Date End Date Emma Cross [address] [place] [address] PCP - General Internal Medicine 08/01/20
== END 2024-04-13 10:43 | disposition home or self-care (01) ==
LOC: HO.XRAY 10:42
PROVIDERS: PCP Internal Medicine; Visit Provider Internal Medicine Gastroenterology
DX: K59.09 Other constipation (principal); R13.10 Dysphagia, unspecified; B19.20 Unspecified viral hepatitis C without hepatic coma; Z93.1 Gastrostomy status
CPT/HCPCS: 74018; 99212

== ENCOUNTER → 2024-04-13 12:28 | Outpatient (BNV) | payer OTHER, SELFPAY | PROVIDERS: PCP Internal Medicine; Visit Provider Radiology Diagnostic Radiology | DX: K59.09 Other constipation (principal) | CPT/HCPCS: 74018 ==

== ENCOUNTER 2024-06-08 11:18 | Outpatient (AMB) | payer OTHER, SELFPAY ==
--- NOTE | 2024-06-08 12:00 | A.OFFVIS_ITS ---
Vital Signs 06/08/24 12:20 Height 6 ft 1 in Weight 175 lb BMI 23.1 Intake Visit Reasons: 2 mo Intake Note: Patient 2 month follow up for chronic constipation and lab/KUB result. Patient cc: abdominal bloating, hard stomach and loose stool not diarrhea. Radiology Director Required: No Accompanied by: Family/Other Allergies bee pollen (BEE STINGS) Allergy (Severe, Verified 08/26/24 10:22) Anaphylaxis Medication List - Last Reconciled 06/08/24 by Raj Myers MD acetaminophen 650 mg (2 x 325 mg) feeding tube Q8H PRN alpha lipoic acid 600 mg PO BID amitriptyline 100 mg feeding tube BEDTIME ascorbic acid (vitamin C) (Vitamin C) 500 mg feeding tube BID 90 days atorvastatin 10 mg feeding tube BEDTIME baclofen 40 mg (4 x 10 mg) feeding tube TID bisacodyl (Dulcolax (bisacodyl)) 10 mg CO DAILY PRN doxycycline hyclate 100 mg IV Q12H doxycycline monohydrate 100 mg feeding tube DAILY PRN epinephrine 0.3 mg IM Q15M PRN famotidine 20 mg feeding tube BID fluticasone propionate 50 mcg/actuation 1 spray intranasal Q4H PRN gabapentin 200 mg PO TID ketoconazole 2% 1 appl topical BID loratadine 10 mg feeding tube DAILY magnesium hydroxide (Milk of Magnesia) 30 mL feeding tube DAILY PRN melatonin 5 mg feeding tube BEDTIME methenamine hippurate 1 g feeding tube DAILY 90 days metoprolol tartrate 25 mg See Protocol G-tube BID phenytoin 100 mg (2 x 50 mg) G-tube DAILY polyethylene glycol 3350 17 grams feeding tube DAILY sennosides (senna) 17.2 mg (2 x 8.6 mg) feeding tube BID sodium phosphates 19-7 gram/118 mL (Fleet Enema) 118 mL CO DAILY PRN triamcinolone acetonide 0.025% 1 appl topical BID HPI HPI 2 mo: Details: GI clinic visit for this 43 YM with multiple sclerosis with cognitive and physical impairment, neurogenic bladder status post suprapubic catheter, mood disorder, essential hypertension, hepatitis-C, mixed hyperlipidemia for FU after PEG tube placement on 08/30/23. TODAY'S VISIT: Pt is wheel chair bound and non verbal and lives in a halfway since June 2020. Pt's Mom is his HCP. Abdominal bloating, hard stomach and loose stool not diarrhea. Bloating has improved. Change in stool consistency from soft serve to like a milk shake. Has a BM daily in the afternoon or at night. Can have a few small BMs for a few days followed by a large BM. PAST VISITS: Patient follow up for chronic constipation and PEG tube. Tube feedings are going well - has gained 20 lbs over the past 6 months Continues to have PO diet as well. Abdomen has been bloated. [facility] would like to get the protocol adjusted Wt is stable at 170 lbs Patient administrative assistant office manager wanted to asked you for a special diet . Wt improved from 130 to 151 lbs PEG tube feedings are going well - Osmolite 1.5 Formula 1 container (237 ml) 5 times a day bolus feeding - 6 am, 10 am, 2 pm, 7 pm and 10 pm Tube feeding orders per Yady Chase, RDN: EEN 1647 kcal for wt maintainence at 145 lbs (wt is at low end of ideal for ht and age) EEN for wt gain 1976 - 2146 Kcal - current tube feedings providing 1980 kcal/day Flush with 30 ml of water before and after each feeding Flush 120 ml of water prior to each feeding at 8 am, 12 pm and 5 pm. At least 2 hour intervals before and after meals Check residual before each feedings and hold for residuals > 50 cc - recheck after 1 hour Pt is also given a Pureed diet with honey thick liquids in addition to his tube feedings at 8 am, 12 noon and 5 pm Free water 1745 ml via G tube and 240 ml (8 oz) by mouth Pt is wheel chair bound and non verbal. Pt's Mom is his HCP. He is accompanied by manager Lexie at the [facility] (moved there in June,) who provided the history Pt is on a Pureed, honey thick diet for the past 2 yrs. Wt decreased from 165 to 130 lbs 3rd swallowing evaluation at [facility] - advised to continue same diet. Since last hospitalization Medications are crushed and given in apple sauce Pt has chronic constipation and has a bowel regimen: Miralax, colace and senna twice a day MOM if no BM in 2 days Patient denies major cardiac or pulmonary problems, loud snoring or sleep apnea Recent labs by PCP were normal. Denies being on chronic anticoagulation. Patient denies known family history of colon polyps, colon cancer or other GI malignancies. Pt was hospitalized at [facility] from 08/30/23 to 09/01/23: Hospital Course: 42-year-old male with pertinent history of multiple sclerosis with cognitive and physical impairment, neurogenic bladder status post suprapubic catheter, mood disorder, essential hypertension, hepatitis-C, mixed hyperlipidemia admitted to [facility] for PEG tube placement by [facility]astro[facility]. Patient subsequently admitted to medical floor, treated with IV fluids, and started on G-tube feedings that he is tolerating well without nausea vomiting or high residuals therefore being discharged back to halfway with home infusion company for continued feedings, all home medications has been transitioned through G-tube, Toprol-XL discontinued and replaced by metoprolol tartrate 25 mg b.i.d. Hypertension : BP stable , mild chronic tachycardia, continue metoprolol 25 mg b.i.d. via PEG tube hx mutiple sclerosis : Resume all home medications via PEG tube, continue supportive care Pt was hospitalizecd at [facility] from 01/21 to 01/24/23 for lethargy and confusion: 42-year-old male sent to the emergency department from halfway. Staff at halfway noticed change in order from suprapubic catheter. Unable to obtain any history from the patient. Does have a history of frequent UTI. The advanced practice professional at halfway also concern for choking/coughing with p.o. intake. Patient is on a pureed diet with thickened liquids at baseline. Unable to obtain review of systems. In the emergency department, urine was concerning for UTI and patient was initiated on empiric IV antibiotics. hospital course: Patient was admitted for acute metabolic encephalopathy due to suprapubic catheter associated urinary tract infection. He was initially treated with IV ceftriaxone and mental status returned to baseline. Culture grew Serratia that was resistant to ceftriaxone therefore, discharge he will be given 7 more days of p.o. Bactrim. Patient is back to baseline. For his dysphagia he was seen by [facility] PR[facility] who recommended pureed solids and honey thick liquids. For history of MS use continue baclofen. For her hyperlipidemia is continue on statin. Patient is now medically stable be discharged home. [facility] Medical History Constipation History of substance abuse Former smoker GERD (gastroesophageal reflux disease) HTN (hypertension) GI bleed Hepatitis B Anemia Afib Failure to thrive in adult Seizures Neuromyopathy UTI (urinary tract infection) Suprapubic catheter Hepatitis C Multiple sclerosis Surgical History Hx of cystoscopy Social History Household Members: Other Household Members Other:: [facility] Housing: Other Housing Other:: [facility] Do you presently have visiting nurse or other home services: Yes Unable to assess alcohol history related to: Unable to respond Alcohol intake: never Comment: halfway staff at bedside Patient Tobacco Use Status: Former Tobacco user Tobacco use type: Cigarette e-Cigarette/Vaping Use: Never Used Second Hand Smoke Exposure: No Use of substances other than those prescribed or required for medical reasons: Unable to respond Advance Directives: Yes Advance Directives on File: Yes Advance Directives Date on File: 09/02/23 Do you have a plan to hurt others: No Plan service: No Current occupational status: disabled Review of Systems Const All systems reviewed & are unremarkable except as noted in HPI and below Physical Exam Vital Signs: BMI result Body Mass Index 23.1 Const General: no acute distress Nutritional Appearance: average body habitus Orientation/consciousness: Other orientation findings (non-verbal due to MS) Limitations: wheelchair HEENT Head: Yes normal to inspection Ears: hearing grossly normal bilaterally Mouth: Normal oral and palatal mucosa present Eyes Sclerae: sclerae normal Pupils: Equal, round and reactive pupils present Neck Neck: Yes normal visual inspection Chest Chest palpation & inspection: normal inspection of the chest Resp Effort & Inspection: normal respiratory effort Auscultation: clear to auscultation bilaterally Cardio Palpation: normal PMI Rate: regular rate Rhythm: regular rhythm Heart sounds: S1 normal heart sound present, S2 normal heart sound present and no murmurs GI Inspection: Yes G-tube present Palpation (GI): Soft to palpation, nontender and No hepatosplenomegaly present Auscultation: normal bowel sounds Rectal Exam - Male: Yes deferred Skin General skin exam: no rashes or lesions noted Neuro General: gait normal and moves all extremities Cranial nerves: Yes Equal, round and reactive pupils present Psych Appearance: grossly normal Mental Status: mental status grossly normal Assessment & Plan Assessment & Plan (1) Dysphagia: Code(s): R13.10 - Dysphagia, unspecified Category: Medical (2) Gastrostomy status: Code(s): Z93.1 - Gastrostomy status Category: Surgical (3) Chronic constipation: Code(s): K59.09 - Other constipation Category: Medical Plan 43 YM with multiple sclerosis with cognitive and physical impairment, neurogenic bladder status post suprapubic catheter, mood disorder, essential hypertension, hepatitis-C, mixed hyperlipidemia seen for FU after PEG tube placement on 08/30/23 Pt is wheel chair bound and non verbal. Pt was seen by LE[facility] PRESSMAN who recommended pureed solids and honey thick liquids. 3rd swallowing evaluation at [facility] - advised to continue same diet. Pt has been on above diet for the past 2 yrs. Wt decreased from 165 to 130 lbs NUTRITION WHEN ABLE, RECOMMEND OSMOLITE 1.5 AT MAX GOAL RATE 55 ML PER HOUR, FREE WATER FLUSHES 240 ML Q6 HOURS. PROVIDES 1980 KCALS (28.3 KCALS/KG), 82.8 G PROTEIN (1.18 G/KG), 1966 ML FREE WATER FROM FORMULA AND FLUSH (28.1 ML/KG). START OSMOLITE 1.5 AT 20 ML PER HOUR, INCREASE BY 10 ML EVERY 4 HOURS UNTIL MAX GOAL RATE OF 55 ML PER HOUR IS ACHIEVED. CHECK RESIDUALS EVERY 4 HOURS, HOLD FOR 2 HOURS IF >250 ML. FOLLOW FOR TUBE FEED TOLERANCE, RESIDUALS AND LYTES. SEE CLINICAL NUTRITION ASSESSMENT 08/30/23. Addendum entered by Eda Biswas RD 08/30/23 14:22: SPOKE WITH NA FROM [facility] VIA PHONE. EXPLAINED THAT TUBE FEED WOULD BE CONTINUOUS X 24 HOURS TO ESTABLISH TOLERANCE. NOCTURNAL FEEDS OR BOLUS FEEDS COULD BE CONSIDERED IN THE FUTURE IF TOLERATED. PATIENT TAKES PUREE SOLIDS WITH HONEY THICK LIQUIDS AT [facility]. 12/20/23 PEG tube feedings are going well - Osmolite 1.5 Formula 1 container (237 ml) 5 times a day bolus feeding - 6 am, 10 am, 2 pm, 7 pm and 10 pm Pt is also given a Pureed diet with honey thick liquids in addition to his tube feedings at 8 am, 12 noon and 5 pm 04/13/24 Abdominal distension and bloating after tube feedings KUB to check for obstipation. Advised to increase Miralax to twice a day If pt continues to gain weight - will need to decrease his caloric intake to prevent him from become overweight/obese ADDENDUM KUB SHOWED: 1. Obstipation. 2. No abnormal dilatation of small bowel loops. 3. Suprapubic catheter, and G tube in good position. 06/08/24 Bloating has improved. Change in stool consistency from soft serve to like a milk shake. Has a BM daily in the afternoon or at night. Pt's Mom is his HCP. Pt will be scheduled for PEG tube change in the Minor OR. FU in 6 months - scheduled 12/07/24 Coding Level of Care Code Est Pt Level 4 (34601) Diagnoses Dysphagia R13.10 Gastrostomy status Z93.1 Chronic constipation K59.09 Time Spent (min) 22
[2024-06-08 12:20] VITALS: BMI 23.1
== END 2024-06-08 15:59 | disposition home or self-care (01) ==
LOC: HO.HGI 11:19
PROVIDERS: PCP Internal Medicine; Visit Provider Internal Medicine Gastroenterology
DX: R13.10 Dysphagia, unspecified (principal); Z93.1 Gastrostomy status; K59.09 Other constipation
CPT/HCPCS: 99499

== ENCOUNTER 2024-06-09 14:22 | Outpatient (REF) | payer OTHER, SELFPAY ==
[2024-06-09 14:29] LABS: Appearance Urine Turbid; Color Urine Yellow; Glucose Urine UA Negative (Negative); Leukocyte Esterase Urine Large (3+) (Negative); Nitrite Urine Negative (Negative); PH 7.5 (5.0-9.0); UMIC TRIGGER UA YES; Urine Blood Small (1+) (Negative); Urine Ketones Negative (Negative); Urine Protein Negative (Neg-Trace)
[2024-06-09 14:48] LABS: Bacteria Urine 2+ (None Seen); Hyaline Casts Urine 0-2 /LPF (0-2); Other Crystals Urine Present; Squamous Epithelial Cell Urine 0-2 /HPF (0-2); WBC Urine 21-50 /HPF (0-5)
== END 2024-06-09 14:23 | disposition home or self-care (01) ==
LOC: HO.LNP 14:22
PROVIDERS: Visit Provider Urology
DX: N31.9 Neuromuscular dysfunction of bladder, unspecified (principal); R33.9 Retention of urine, unspecified; N39.0 Urinary tract infection, site not specified
CPT/HCPCS: 81001; 87086

== ENCOUNTER 2024-06-12 11:30 | Outpatient (REF) | payer OTHER, SELFPAY ==
--- NOTE | 2024-06-12 15:18 | PM.PROC ---
Brief Operative Note Date of procedure: 06/12/24 Pre-op diagnosis: Gastrostomy tube status Post-op diagnosis: same Procedure: CHANGE OF GASTROSTOMY TUBE Consent obtained from Pt's Mom and Health Care Proxy, Anjali May Procedure was performed at. Existing PEG tube was removed with gentle pressure A 20 F JADA (Avanos) replacement gastrostomy tube was inserted easily. Gastrostomy balloon was inflated with 9 ml of saline. External bolster was positioned at 4 cms from the anterior abdominal wall. PEG tube was flushed easily with normal saline and gastric contents were aspirated. RECOMMENDATIONS: 1. PEG tube can be used for tube feedings can be started immediately. 2. PEG tube change at [facility] OR in 6 to 8 months Pt has a FU appt on 12/07/24 in the GI clinic
--- OUTSIDE RECORDS SUMMARY | 2024-06-13 08:24 | XMS_ITS | Data Portability ---
Author Organization [place] [facility] Address [address] [place] [address] Care Team Providers Care Social Media Manager Name Role Phone REMYKELSIE PADILLACARMINAANGELA Primary Care Provider [phone] Assessment Encounter Date Assessment Date Assessment LastModified [...] 11/06/2020 Opened in error, unable to reach [facility] [email or web address] Not available 11/06/2020 10:35:14 11/07/2020 11/07/2020 Brief [...] after care of this [email or web address]. Time On Scene with Patient: 00:41:04 amita Not available 11/07/2020 20:14:06 03/26/2021 03/26/2021 Proper Personal Protective Equipment (PPE), including gloves, gown, shoe covers, eye protection and Envo masks were donned and doffed appropriately and all equipment cleaned using approved technique with germicidal disposable wipes prior to and after care of this patient [facility]. Overview/History: 40 yo male w/PMHx of MS, neurogenic bladder s/p suprapubic catheter, wheelchair mobility, seizures, dysphagia, substance abuse, smoker, psoriasis. [facility] staff states the patient has nasal congestion [...] CoV-2 SAULO collected to be sent to [facility] for analysis. Discussed the patient does not have to self-quarantined per [facility] because he is fully vaccinated and boostered against COVID and has no known sick contacts. COVID test results should be completed in 2 to 4 days, you will receive a phone call with positive results, no call for negative results. Patient and fdc staff endorse understanding and agrees with this plan. In order to obtain further information and compare any laboratory results/values, I have accessed patient records on the [employer]. This information was pertinent in my medical decision making today. [email or web address] Not available 03/26/2021 17:28:01 Plan of Treatment Reminders Order Date Submit Date Provider Last Modified By Organization Details Last Modified Time Details Appointments None recorded. Lab unlisted lab - covid-19 (novel coronavirus ) PCR 2021 022 [place] [id number] [facility] (Centralized Electronic Ordering - All Locations), Patient Can Go To The Location Of Their Choice, [id number] 2 18:27:45 unlisted lab - urinalysis w/reflex culture 2020 021 [facility] (Centralized Electronic Ordering - All Locations), Patient Can Go To The Location Of Their Choice, [id number] 12:02:43 Referral None recorded. Procedures None recorded. Surgeries None recorded. Imaging None recorded. Medication Orders triamcinolo ne acetonide 0.025 % topical ointment 2020 021 [facility], [address] [place] [address], [id number], 19:56:42 Refresh P.M. 57.3 %-42.5 % eye ointment 2020 021 [facility], [address] [place] [address], [id number], 19:56:44 Artificial Tears (glycerin-p eg) 1 %-0.3 % eye drops 2020 021 [facility], [address] [place] [address], [address], [id number], 19:56:46 Patient TargetsNo targets recorded. Patient Instructions Encounter Date Encounter Id Patient Instructions Last Modified By Organization Details Last Modified Time 09/20/2020 [id number] [employer] [facility] came to the fdc to evaluate Noe for a problem with [...] suprapubic catheter is not always possible with [employer] [facility]. IT is provider dependent. If there are fevers, chills or you feel he is worse, please call 911 and go to the ED> Not available 09/20/2020 15:37:53 11/07/2020 [id number] psoriasis: care instructions [email or web address] Not available 11/07/2020 19:49:34 dry eyes: care instructions [email or web address] Not available 11/07/2020 19:49:29 Please follow up with your primary care provider or specialist to be rechecked or seek medical attention if your symptoms do not go away or get worse. If you have additional concerns or develop a change in your condition between 8am-10pm, please call [email or web address] at [phone] to help navigate your care. [email or web address] 5 Not available 11/07/2020 19:50:03 03/26/2021 [id number] Inhaler Instructions Before use, you need to [...] after cleaning actually helps it work better. [email or web address] Not available 03/26/2021 17:02:00 Reason for Referral None Reported. Results Created Date Observation Date Name Description Value Unit Range Abnormal Flag Note LastModifiedBy Organization Detail LastModifiedTime 09/21/19 21 09/24/2020 URINE CULTU RE specimen description URINE Not Available [facility] (Centralized [facility] Ordering - All Locations) Patient Can Go To The Location Of Their Choice, 09/24/2020 14:40:30 09/21/1909/24/2020 URINE CULTU RE special requests NONE Not Available [facility] (Centralized Electronic Ordering - All Locations) Patient Can Go To The Location Of Their Choice, 09/24/2020 14:40:30 09/21/19 21 09/24/2020 URINE CULTU RE culture >100,0 00 COL/ML PROTEU S MIRABI LIS abnormal Not Available [facility] (Centralized Electronic Ordering - All Locations) Patient Can Go To The Location Of Their Choice, 09/24/2020 14:40:30 09/21/1909/24/2020 URINE CULTU RE report status FINAL 2020 Not Available [facility] (Centralized Electronic Ordering - All Locations) Patient Can Go To The Location Of Their Choice, 09/24/2020 14:40:30 09/21/1909/24/2020 URINE CULTU RE organism ORGANI SM >100,0 00 COL/ML PROTEU S MIRABI LIS Not Available [facility] (Centralized Electronic Ordering - All Locations) Patient Can Go To The Location Of Their Choice, 09/24/2020 14:40:30 09/21/1909/24/2020 URINE CULTU RE method METHOD MIN. INHIB. CONC. (MCG/M L) Not Available [facility] (Centralized Electronic Ordering - All Locations) Patient Can Go To The Location Of Their Choice, 09/24/2020 14:40:30 09/21/1909/24/2020 URINE CULTU RE ampicillin AMPICI LLIN RESIST ANT resistant Not Available [facility] (Centralized Electronic Ordering - All Locations) Patient Can Go To The Location Of Their Choice, 09/24/2020 14:40:30 09/21/1909/24/2020 URINE CULTU RE ampicillin/s ulbactam AMPICI LLIN/S ULBACT AM RESIST ANT resistant Not Available [facility] (Centralized Electronic Ordering - All Locations) Patient Can Go To The Location Of Their Choice, 09/24/2020 14:40:30 09/21/1909/24/2020 URINE CULTU RE amoxicillin/ clavulanic acid AMOXIC ILLIN/ CLAVUL AN RESIST ANT resistant Not Available [facility] (Centralized Electronic Ordering - All Locations) Patient Can Go To The Location Of Their Choice, 09/24/2020 14:40:30 09/21/1909/24/2020 URINE CULTU RE cefazolin CEFAZO RAVIN RESIST ANT resistant Not Available [facility] (Centralized Electronic Ordering - All Locations) Patient Can Go To The Location Of Their Choice, 09/24/2020 14:40:30 09/21/1909/24/2020 URINE CULTU RE cefepime CEFEPI ME SUSCEP TIBLE susceptib le Not Available [facility] (Centralized Electronic Ordering - All Locations) Patient Can Go To The Location Of Their Choice, 09/24/2020 14:40:30 09/21/1909/24/2020 URINE CULTU RE ceftriaxone CEFTRI AXONE SUSCEP TIBLE susceptib le Not Available [facility] (Centralized Electronic Ordering - All Locations) Patient Can Go To The Location Of Their Choice, 09/24/2020 14:40:30 09/21/1909/24/2020 URINE CULTU RE ciprofloxaci n CIPROF LOXACI N RESIST ANT resistant Not Available [facility] (Centralized Electronic Ordering - All Locations) Patient Can Go To The Location Of Their Choice, 09/24/2020 14:40:30 09/21/1909/24/2020 URINE CULTU RE ertapenem ERTAPE NEM SUSCEP TIBLE susceptib le Not Available [facility] (Centralized Electronic Ordering - All Locations) Patient Can Go To The Location Of Their Choice, 09/24/2020 14:40:30 09/21/1909/24/2020 URINE CULTU RE gentamicin GENTAM ICIN SUSCEP TIBLE susceptib le Not Available [facility] (Centralized Electronic Ordering - All Locations) Patient Can Go To The Location Of Their Choice, 09/24/2020 14:40:30 09/21/1909/24/2020 URINE CULTU RE levofloxacin LEVOFL OXACIN RESIST ANT resistant Not Available [facility] (Centralized Electronic Ordering - All Locations) Patient Can Go To The Location Of Their Choice, 09/24/2020 14:40:30 09/21/1909/24/2020 URINE CULTU RE meropenem MEROPE NEM SUSCEP TIBLE susceptib le Not Available [facility] (Centralized Electronic Ordering - All Locations) Patient Can Go To The Location Of Their Choice, 09/24/2020 14:40:30 09/21/1909/24/2020 URINE CULTU RE nitrofuranto in NITROF URANTO IN RESIST ANT resistant Not Available [facility] (Centralized Electronic Ordering - All Locations) Patient Can Go To The Location Of Their Choice, 09/24/2020 14:40:30 09/21/1909/24/2020 URINE CULTU RE piperacillin /tazobactam PIPERA CILLIN /TAZOB AC SUSCEP TIBLE susceptib le Not Available [facility] (Centralized Electronic Ordering - All Locations) Patient Can Go To The Location Of Their Choice, 09/24/2020 14:40:30 09/21/1909/24/2020 URINE CULTU RE trimeth/sulf amethox TRIMET H/SULF AMETHO X SUSCEP TIBLE susceptib le Not Available [facility] (Centralized Electronic Ordering - All Locations) Patient Can Go To The Location Of Their Choice, 09/24/2020 14:40:30 09/21/1909/24/2020 URINE CULTU RE tetracycline TETRAC YCLINE RESIS TANT resistant Not Available [facility] (Centralized Electronic Ordering - All Locations) Patient Can Go To The Location Of Their Choice, 09/24/2020 14:40:30 03/26/19 22 03/29/20212018 NOVEL CORON [...] Disea se Contr ol and preve ntion ([facility]) pre depar ture and arriv al requi remen t for viral test for COVID -19 dated 2020. Testi ng requi remen ts for romina ballesteros july cash e with time. The patie nt is respo nsibl e for deter shalonda g the test requi remen ts for each natio n while they are romina ballesteros. = This test has been autho rized by the FDA under an Emerg ency Use Autho rizat ion (EUA) for use by autho rized labor atori es. = Pleas e revie w the Fact Sheet s and FDA [...] nt publi c healt h emerg ency, [facility] is accep chito oliver es from appro priat e clini donell [...] the [facility] websi te: www.[employer]/ Covid 19. = Test Perfo rmed by: [facility], [address], [place]. [address] . Labor atory Direc tor: Sridevi nettles MD. Not Available [facility] (Centralized Electronic Ordering - All Locations) Patient Can Go To The Location Of Their Choice, [id number] 03/29/2021 05:52:14 Result Notes None recorded. Procedures Surgical History Date Name Laterality Status Provider Name and Address Organization Details Recorded Time Mcghee Catheter Insertion - DH completed CAMACHO BAILEY NP [address], [place], [address], [place] [facility] 09/20/2020 17:24:40 Imaging Results None recorded. Procedure Notes None recorded. Medical Equipment None Reported. Allergies Allergen ID Allergen Name Allergen Category Reaction Reaction Severity Criticality Documentation Date Start Date Code Code System Note Provider Name and Address Organization Details Recorded Time [id number] honey bee venom medicatio n Not available Not available Not available 09/20/2020 65288 [id number] RxNorm CAMACHO BAILEY NP [address], [place], [address], [place] [facility] 15:30:02 Medications Name Sig Start Date Stop [...] % 144 mm[Hg] 82 mm[Hg] Not Available [facility] 1 14:55:02 Date Recorded Body temperature Respiratory rate Oxygen saturation Oxygen saturation in Arterial blood by Pulse oximetry Heart rate Oxygen saturation Oxygen saturation in Arterial blood by Pulse oximetry Heart rate Body temperature Respiratory rate Systolic blood pressure Diastolic blood pressure Systolic blood pressure Diastolic blood pressure Provider Name and Address Organization Details Last Updated DateTime 1 96.2 [degF] 16 /min 97 % 97 % 80 /min 97 % 97 % 80 /min 96.2 [degF] 16 /min 118 mm[Hg] 80 mm[Hg] 118 mm[Hg] 80 mm[Hg] Not Available [facility] 1 19:41:03 Date Recorded Heart rate Body temperature Respiratory rate Oxygen saturation Oxygen saturation in Arterial blood by Pulse oximetry Systolic blood pressure Diastolic blood pressure Provider Name and Address Organization Details Last Updated DateTime 2 88 /min 97 [degF] 14 /min 98 % 98 % 130 mm[Hg] 80 mm[Hg] Not Available [facility] 2 17:13:03 Social History Question Answer Notes LastModified by Organizat ion Details LastModified Time Tobacco Smoking Status Current Some Day Smoker BRET MONZON, [address] [address] [place], [address], [place] [facility] 11/07/2020 19:39:56 What Is Your Level Of Alcohol Consumption? None [email or web address] Information not available 11/07/2020 What Is Your Code Status? Full Code [email or web address] Information not available 11/07/2020 Fall Risk: Do You Feel Unsteady When Standing Or Walking? Yes [email or web address] Information not available 11/07/2020 Excessive Alcohol Or Drug Use No [email or web address] Information not available 11/07/2020 Does This Patient Have A PCP? Yes [email or web address] Information not available 11/07/2020 Do You Use Any Illicit Or Recreational Drugs? No [email or web address] Information not available 11/07/2020 How Many Years Have You Smoked Tobacco? 20 [email or web address] Information not available 11/07/2020 Do You Or Have You Ever Used Any Other Forms Of Tobacco Or Nicotine? No [email or web address] Information not available 11/07/2020 Sex: Unknown Functional Status None recorded. Mental Status None recorded. Family History Relationship Description Onset Age of this Age Resolved Age Notes LastModified by Organization Details LastModified Time Father No current problems or disability amita Not available 0 11/07/2020 19:38:39 Mother No current problems or disability amita Not available 0 11/07/2020 19:38:39 Notes:Pt denies FH Medical History Condition Response Coronary Artery Disease N Stroke N Asthma N High Cholesterol N Pulmonary Embolism N Hypertension N Kidney Disease N Past Encounters Encounter ID Performer Location Encounter Start Date Encounter Closed Date Diagnosis/Indication Diagnosis SNOMED-CT Code Diagnosis ICD10 Code Diagnosis Note [id number] CAMACHO BAILEY NP [facility] [address] [employer] [facility] [place] [address] 09/20/2020 14:54:22 09/23/2020 18:41:47 Mechanical complication of suprapubic catheter 606314573 T83.198A [id number] GABY BUTLER [facility] [address] [facility] [address] 11/06/2020 10:21:09 11/06/2020 15:09:11 [id number] BRET MONZON NP [facility] [address] [facility] [address] 11/07/2020 19:06:33 11/08/2020 21:41:04 Psoriasis of face 456489167 L40.9 acute on chronic Adverse re action to drug 30569102 T50.905A Dry eyes 938080469 H04.1 29 [id number] DERECK SALINAS [facility] [address] [facility] [address] 03/26/2021 17:01:05 03/31/2021 11:43:30 Exposure to communicable disease 437083645 Z20.9 Health Concerns Section Related Observation LastModified by Organization Detai ls LastModified Time None Recorded Concern Status LastModified by Organization Details LastModified Time None Recorded Advance Directives Directive None Recorded Payers Encounter Date Sequence Insurance Name Policy Number Policy Covered Member ID Member ID Guarantor Name 09/20/2020 2 [place] [facility] Noe Vieira [id number] Noe Vieira 09/20/2020 1 [place] [facility] Noe Vieira [id number] Noe Vieira 11/06/2020 2 [place] Noe Vieira [id number] Noe Vieira 11/06/2020 1 [place] Noe Vieira [id number] Noe Vieira 11/07/2020 2 [place] Vieira [id number] Noe Vieira 11/07/2020 1 [place] Noe Vieira [id number] Noe Vieira 03/26/2021 2 [place] Noe Vieira [id number] Noe Vieira 03/26/2021 1 [place] [facility] Noe Vieira [id number] Noe Vieira Notes Date Note Type Note Provider Name and Address Organization Details Recorded Time 09/20/2020 text/html 39 year-old male with history of progressive MS, wheelchair bound ,suprapubic catheter, substance abuse, chronic methadone use for pain control, whose staff calls to the fdc to evaluate patient's suprapubic catheter.Pt had a [...] been acting his norm per staff of fdc.Pt denies any difficulty in breathing and has no complaints. CAMACHO BAILEY NP [address] [place], [address], [place] [facility] 09/20/2020 17:34:37 11/06/2020 text/html Opened in error, unable to reach [facility] GABY BUTLER NP [address], [place], [address], [place] [facility] 11/06/2020 10:35:31 11/07/2020 text/html [...] dry. BRET MONZON NP [address], [place], [address], [place] [facility] 11/07/2020 20:14:13 03/26/2021 text/html 40 yo male who i s known to but new to this provider. Patient's PMHx includes MS, neurogenic bladder s/p suprapubic catheter, wheelchair mobility, seizures, dysphagia, substance abuse, smoker, psoriasis; he resides in a fdc setting. [facility] staff endorse the patient has been experiencing congestion, with increased sniffling for the last two days; he is vacc., and boostered against COVID 19; deny any active COVID residents in building. Patient denies fever, chills, eye/ear pain, changes in vision, chest pain, palpitations, abdominal pain, N/V/D. DERECK SALINAS NP [address], [place], [address], [place] [facility] 03/26/2021 20:11:33
--- OUTSIDE RECORDS SUMMARY | 2024-06-13 08:24 | XMS_ITS | Referral Summary ---
Author Organization [facility] Address [address] [place] [address] Care Team Providers Care Associate Professor Of Medicine Name Role Phone Emma Cross Primary Care Provider [phone] Allergies No known active allergies Medications acetaminophen [...] 10 mg tabletIndications :Multiple sclerosis (HCC),Spastic quadriplegia (HCC) Take 4 tablets (40 mg total) by mouth 3 times a day. 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 Cognitive impairment 05/20/2021 Neurogenic bladder 05/20/2021 [...] Description 07/13/2024 3:00 PM EDT Office Visit [facility] [address] [place] [address] Field Service Consultant: Isaac Brumfield MD [address] [place] [address] Insurance [facility] MEDICAID Advance Directives Documents on File Type Date Recorded Patient Flying Squad Worker Expl anation Power of Office Copy Selector 08/21/2020 6:37 PM 2018 Care Teams Associate Professor Of Medicine Relationship Specialty Start Date End Date Emma Cross [address] [place] [address] PCP - General Internal Medicine 08/01/20
--- OUTSIDE RECORDS SUMMARY | 2024-06-13 08:24 | XMS_ITS | Encounter Summary ---
Author Organization [facility] Address [address] [place] [address] Care Team Providers Care Claims Clerk Name Role Phone mEma Cross Primary Care Provider [phone] Reason for Visit * Reason Onset Date Comments Reschedule 04/01/2021 Encounter Details Date Type Department Care Team (Late st Contact Info) Description 04/01/2021 Telephone [facility] Central Scheduling Department [address] [place] [address] Telephone Intake, Staff Reschedule Social History Tobacco [...] Davide - 04/01/2021 3:49 PM EST Amy Fruit Harvest Machine Operator rescheduling pt's MS appt for 04/03 with Isaac Hugo MD Per DT, rescheduled appt for 09/[address] Hugo documented in this encounter Plan of Treatment Upcoming Encounters Date Type Department Care Team (Late st Contact Info) Description 07/13/2024 3:00 PM EDT Office Visit [facility] [address] [place] [address] Drop Forger: Laxmi Hugo, Isaac May MD [address] [place] [phone] documented as of this encounter Visit Diagnoses Not on filedocumented in this encounter Care Teams Claims Clerk Relationship Specialty Start Date End Date Emma Cross [address] [place] [address] PCP - General Internal Medicine 08/01/20 documented as of this encounter
--- OUTSIDE RECORDS SUMMARY | 2024-06-13 08:24 | XMS_ITS | Encounter Summary ---
Author Organization [facility] Address [address] [place] [address] Care Team Providers Care Defensive Fire Control Systems Operator Name Role Phone Emma Cross Primary Care Provider [phone] Reason for Visit * Reason Onset Date Comments RX refill 06/19/2021 Encounter Details Date Type Department Care Team (Late st Contact Info) Description 06/19/2021 Telephone [facility] Central Scheduling Department [address] [place] [address] Telephone Intake, Staff RX refill Social History [...] anything yet pls follow up once complete [phone] documented in this encounter Plan of Treatment Upcoming Encounters Date Type Department Care Team (Late st Contact Info) Description 07/13/2024 3:00 PM EDT Office Visit [facility] [address] [place] [address] Vp Digital Marketing Social Media And Crm: Isaac Brumfield MD [address] [place] [phone] documented as of this encounter Visit Diagnoses Not on filedocumented in this encounter Care Teams Defensive Fire Control Systems Operator Relationship Specialty Start Date End Date Emma Cross [address] [place] [address] PCP - General Internal Medicine 08/01/20 documented as of this encounter
--- OUTSIDE RECORDS SUMMARY | 2024-06-13 08:24 | XMS_ITS | Clinical Summary ---
Author Organization [facility] Address [address] [place] [address] Care Team Providers Care Dam Worker Name Role Phone Emma Cross Primary Care Provider [phone] Allergies No known active allergies Medications acetaminophen [...] [facility] [address] [place] [address] Special Education Inclusion Teacher: Isaac Brumfield MD [address] [place] [address] Health Maintenance Due Date Last Done Comments Cologuard 1978 Colon Cancer Screening 1978 Colonoscopy 1978 FOBT / Fit Test 1978 HIV Screening 1978 Hepatitis C Screening 1978 Sigmoidoscopy 1978 Hepatitis B Vaccines (1 of 3 - 19+ 3-dose series) 1997 COVID-19 Vaccine ( season) 2023 01/02/2022, 01/31/2021, 04/17/2020, Additional history [...] Vaccine: Pediatric (0-5 Years) and At-Risk Patients (6-50 Years) Aged Out 08/19/2022 No longer eligible based on patient's age to complete this topic Insurance [facility] MEDICAID Advance Directives Documents on File Type Date Recorded Patient Ruby Developer Expl anation Power of Oracle Applications Analyst 08/21/2020 6:37 PM 2018 Care Teams Dam Worker Relationship Specialty Start Date End Date DougArvind gamboayomaira [address] [place] [address] PCP - General Internal Medicine 08/01/20
--- OUTSIDE RECORDS SUMMARY | 2024-06-13 08:24 | XMS_ITS | Encounter Summary ---
Author Organization [facility] Address [address] [place] [address] Care Team Providers Care Internal Controls Manager Name Role Phone Emma Cross Primary Care Provider [phone] Encounter Details Date Type Department Care Team (Late st Contact Info) Description 07/15/2021 Telephone [facility] Central Scheduling Department [address] [place] [address] Telephone Intake, Staff Social History Tobacco Use [...] Hugo Caregiver reqs prescription be refilled at [facility] [phone] Sending TE to [facility] Mutiple Sclerosis Clinical Staff per DT to please obtain order from provider and send to above named pharmacy documented in this encounter Plan of Treatment Upcoming Encounters Date Type Department Care Team (Late st Contact Info) Description 07/13/2024 3:00 PM EDT Office Visit [facility] [address] [place] [address] Entry Engineer: Isaac Brumfield MD [address] [place] [phone] documented as of this encounter Visit Diagnoses Not on filedocumented in this encounter Care Teams Internal Controls Manager Relationship Specialty Start Date End Date Emma Cross [address] [place] [address] PCP - General Internal Medicine 08/01/20 documented as of this encounter
--- OUTSIDE RECORDS SUMMARY | 2024-06-13 08:24 | XMS_ITS | Encounter Summary ---
Author Organization [facility] Address [address] [place] [address] Care Team Providers Care Coating Mixer Tender Name Role Phone Tay Spencerdebbie Primary Care Provider [phone] Reason for Visit * Reason Onset Date Comments Fax Referral 07/29/2020 Encounter Details Date Type Department Care Team (Late st Contact Info) Description 07/29/2020 Telephone [facility] Central Scheduling Department [address] [place] [id number] Telephone Intake, Staff Fax Referral Social History [...] She states that she has power of district attorney. Noe will be coming to the initial visit with someone from his skilled nursing, but she is unable to attend the first visit. She will have the skilled nursing bring 1. Copy of power of district attorney, 2. MRI results report from [facility] 2017. 3. Medication list, 4. Most recent PCP note. (she does not know PCP's name at the moment.) I have sent her the [facility] link, so that she can also send us records thru [facility]. His mother adds that he is a poor historian. * Telephone Encounter - Nickolas Sam - 07/29/2020 1:16 PM EDT [facility] has medical records of pt Pt's mother said the most recent MRI was in September 2016. To obtain this, mother said she was having difficult time. [facility] wants [facility] to fax them a request and they will send records. [facility] fax number: [phone] documented in this encounter Plan of Treatment Upcoming Encounters Date Type Department Care Team (Late st Contact Info) Description 07/13/2024 3:00 PM EDT Office Visit [facility] [address] [place] [address] Adjunct Faculty Instructor: Isaac Brumfield MD [address] [place] [phone] documented as of this encounter Visit Diagnoses Not on filedocumented in this encounter Care Teams Coating Mixer Tender Relationship Specialty Start Date End Date Emma Cross [address] [place] [address] PCP - General Internal Medicine 08/01/20 documented as of this encounter
== END 2024-06-12 11:31 | disposition home or self-care (01) ==
LOC: HO.MS 11:30
PROVIDERS: PCP Internal Medicine; Visit Provider Internal Medicine Gastroenterology
PROC: 0DH63UZ Insertion of Feeding Device into Stomach, Percutaneous Approach (ICD-10-PCS; CPT 43246; principal; 2024-06-12 13:40)
DX: Z43.1 Encounter for attention to gastrostomy (principal)
CPT/HCPCS: 43762

== ENCOUNTER → 2024-06-12 13:40 | Outpatient (BNV) | payer OTHER, SELFPAY | PROVIDERS: PCP Internal Medicine; Visit Provider Internal Medicine Gastroenterology | DX: R62.7 Adult failure to thrive (principal); G35 Multiple sclerosis | CPT/HCPCS: 43762 ==

== ENCOUNTER 2024-07-06 11:09 | Outpatient (AMB) | payer OTHER, SELFPAY ==
--- NOTE | 2024-07-06 11:10 | MHC.OFFVIS ---
Intake Visit Reasons: 6m follow up Intake Note: Patient is present for a 6 month follow up Urology Med: Methenamine Antibiotic Allergy: None Inside Sales Territory Manager Required: No Allergies bee pollen [BEE STINGS] Allergy (Severe, Verified 07/06/24 11:15) Anaphylaxis HPI Comments Details: Noe KIRKPATRICK s a very pleasant male. They are a patient of Dr Cross. They are seen in the office today for the following urologic conditions. - neurogenic bladder Has been doing suprapubic tube exchange every 2 weeks due to clogging Receives doxycycline the morning and afternoon of catheter change Daily methenamine with vitamin-C Unable to do cranberry capsules secondary to cost Neurogenic Bladder:? They are here for ?further management for incomplete emptying neurogenic bladder ?- can be changed at facility ? Urinary retention initially found?progressive development over time.? Associated conditions? Multiple sclerosis ?Yes ? renal replacement therapy ?No ? Spinal injury/surgery ?No ? Current management?SPT placed in hospital for retention and UTI.? Therapeutic plan?change SPT q2-3 weeks at facility.? PFSH Medical History Constipation History of substance abuse Former smoker GERD (gastroesophageal reflux disease) HTN (hypertension) GI bleed Hepatitis B Anemia Afib Failure to thrive in adult Seizures Neuromyopathy UTI (urinary tract infection) Suprapubic catheter Hepatitis C Multiple sclerosis Surgical History Hx of cystoscopy Social History Household Members: Other Household Members Other:: Halfway Housing: Other Housing Other:: Halfway Do you presently have visiting nurse or other home services: Yes Unable to assess alcohol history related to: Unable to respond Alcohol intake: never Comment: skilled nursing staff at bedside Patient Tobacco Use Status: Former Tobacco user Tobacco use type: Cigarette e-Cigarette/Vaping Use: Never Used Second Hand Smoke Exposure: No Advance Directives Date on File: 04/16/20 service: No Current occupational status: disabled Review of Systems Const Denies chills and Denies fever(s) Card Reports no additional complaints and Denies syncope Resp Denies cough GI Denies abdominal pain and Denies heartburn Reports as per HPI and Denies change in libido Neuro Denies syncope Psych Denies change in libido Endo Denies change in libido Physical Exam Const General: cooperative, healthy appearing, comfortable and no acute distress Orientation/consciousness: patient oriented x3 HEENT Face and sinus: Yes normal facial exam Mouth: moist mucous membranes Neck Neck: Yes normal visual inspection, Yes full ROM and Yes trachea midline Chest Chest palpation & inspection: normal inspection of the chest Resp Effort & Inspection: normal respiratory effort, able to speak in complete sentences and no respiratory distress GI Inspection: Yes normal to inspection Back/Spine/Pelvis Cervical Spine: normal cervical lordosis Thoracic/Lumbar Spine: thoracic and lumbar spine normal to inspection Skin General skin exam: no rashes or lesions noted Neuro General: patient oriented x3, gait normal, tone normal and moves all extremities Extrem General: Yes normal to inspection and Yes capillary refill normal Assessment & Plan Assessment & Plan (1) Suprapubic catheter: Code(s): Z93.59 - Other cystostomy status Category: Medical (2) Neurogenic urinary bladder disorder: Code(s): N31.9 - Neuromuscular dysfunction of bladder, unspecified Category: Medical (3) UTI (urinary tract infection): Code(s): N39.0 - Urinary tract infection, site not specified Category: Medical Plan Six-month follow-up tele Patient Instructions: This note is constructed using voice recognition software. While every effort has been made to ensure accuracy universal grinder tool errors may have been included. Imaging studies, laboratory and physical exam results were discussed and reviewed in detail. No major barriers to patient understanding were identified. An opportunity to ask questions regarding the treatment plan was provided. All questions were answered. The patient expressed understanding and agreement with the above treatment plan. The patient is aware they should contact our office by phone for worsening of their current condition or the appearance of new urologic symptoms. Compliance is encouraged with any medications and followup testing that is ordered. It is a privilege to participate in the urologic care of your patient. If you have any questions or concerns regarding treatment for the above conditions, or other urologic issues, please do not hesitate to contact me. The office telephone contact is [phone]. Sincerely, Dr Cristi Zepeda MD, [facility] - Urology Compassionate Specialist Care for the Genitourinary System Coding Level of Care Code Est Pt Level 3 (50842) Complex EM visit Add On G2211 Diagnoses Suprapubic catheter Z93.59 Neurogenic urinary bladder disorder N31.9 UTI (urinary tract infection) N39.0
--- OUTSIDE RECORDS SUMMARY | 2024-07-06 13:18 | XMS_ITS | Encounter Summary ---
Author Organization [facility] Address [address] [place] [address] Care Team Providers Care Forklift Driver Name Role Phone Emma Cross Primary Care Provider [phone] Reason for Visit * Reason Onset Date Comments Reschedule 04/01/2021 Encounter Details Date Type Department Care Team (Late st Contact Info) Description 04/01/2021 Telephone [facility] Central Scheduling Department [address] [place] [address] Telephone Intake, Staff Reschedule Social History Tobacco [...] Davide - 04/01/2021 3:49 PM EST Amy Aircraft Instrument Engineer rescheduling pt's MS appt for 04/03 with Isaac Hugo MD Per DT, rescheduled appt for 09/[address] Hugo documented in this encounter Plan of Treatment Upcoming Encounters Date Type Department Care Team (Late st Contact Info) Description 07/13/2024 3:00 PM EDT Office Visit [facility] [address] [place] [address] Moisture Conditioner Operator: Laxmi Hugo, Isaac May MD [address] [place] [phone] documented as of this encounter Visit Diagnoses Not on filedocumented in this encounter Care Teams Forklift Driver Relationship Specialty Start Date End Date Emma Cross [address] [place] [address] PCP - General Internal Medicine 08/01/20 documented as of this encounter
--- OUTSIDE RECORDS SUMMARY | 2024-07-06 13:18 | XMS_ITS | Data Portability ---
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 Plan of [...] Address Organization Details Recorded Time Primary insomnia 8790053 Active 2019 Toñito Denson MD [address], [address], [place], [address], [facility] 0 13:58:16 Recurrent urinary tract infection 967825990 Completed 201905/11/2019 MAO Moffett [address], [address], [place], [address], [facility] 0 07:38:20 Sepsis due to urinary tract infection 115819159 Active 2019 MAO Moffett [address], [address], [place], [address], [facility] 0 07:38:37 Seizure disorder 491645446 Active 2019 Tanya Bailey MD [address], [address], [place], [address], [facility] 0 11:33:50 Mixed anxiety and depressive disorder 577404705 Active 2020 Alka Schaeffer MD [address], [address], [place], [address], [facility] 1 14:41:02 Sinus tachycardia 06991533 Active 2020 Alka Schaeffer MD [address] [facility], [facility] [address], [place], [address], [facility] 1 14:46:37 Multiple sclerosis 20093502 Active 2017 Lexii Ames null, [facility] 8 12:02:11 Neurogenic urinary bladder 386093208 Active 2017 Lexii Ames null, [facility] 8 12:02:19 Viral hepatitis C 61573386 Active 2017 Lexii Ames null, [facility] 8 12:02:29 Psoriasis 9076077 Active 2017 Lexii Ames null, [facility] 8 12:02:34 Constipatio n 47550416 Active [address], [facility] [address], [place], [address], [facility] 8 14:32:59 Tobacco dependence syndrome 84058606 Active 2017 Alka Schaeffer MD [address] [facility] [address], [place], [address], [facility] 8 10:54:36 Chronic pain 45797379 Active 2018 MAO Gale [address] [facility], [facility] [address], [place], [address], [facility] 9 13:08:02 Problem Notes None recorded. Medical [...] [degF] 135 mm[Hg] 85 mm[Hg] EVA [address] [facility], [facility] [address], [place], [address] , [facility] 1 11:45:53 Date Recorded Body height Body temperature Oxygen saturation Oxygen saturation in Arterial blood by Pulse oximetry Respiratory rate Provider Name and Address Organization Details Last Updated DateTime 1 182.88 cm 97.5 [degF] 86 % 86 % 20 /min Linda Peña, MAO [address] [facility], [address], [place], [address], [facility] 1 11:19:40 Date Recorded Systolic blood pressure Diastolic blood pressure Provider Name and Address Organization Details Last Updated DateTime 05/06/2020 135 mm[Hg] 85 mm[Hg] Lexii Zuñiga [facility] 05/06/2020 10:28:53 Social History Question Answer Notes LastModified by Organizat ion Details LastModified Time Tobacco Smoking Status Current Every Day Smoker occas marijuana Not Available [facility] 01/09/2020 03:13:21 Do You Have An Advance Directive? Yes Full Code [id number] Information not available 01/09/2020 What Is Your Level Of Alcohol Consumption? None [id number] Information not available 01/09/2020 How Much Tobacco Do You Chew? None [id number] Information not available 01/09/2020 Do You Have A Medical Power Of Employment Attorney? Yes [id number] Information not available 01/09/2020 What Was The Date Of Your Most Recent Tobacco Screening? 09/27/2018 [id number] Information not available 01/09/2020 How Much Tobacco Do You Smoke? 0.5 PPD [id number] Information not available 01/09/2020 Has Tobacco Cessation Counseling Been Provided? Yes [id number] Information not available 01/09/2020 On What Date Was Tobacco Cessation Counseling Provided? 10/17/2018 [id number] Information not available 01/09/2020 How Many Years Have You Smoked Tobacco? 25 [id number] Information not available 01/09/2020 Sex: Unknown Functional [...] virus, quadrivalent, preservative 0 completed Lisha Bowden [facility] 04/02/2020 15:53:25 Past Encounters Encounter ID Performer Location Encounter Start Date Encounter Closed Date Diagnosis/Indication Diagnosis SNOMED-CT Code Diagnosis ICD10 Code Diagnosis Note [id number] Lexii Zuñiga [facility] on [address] [place] [address] 09/28/2017 11:55:21 10/13/2017 14:28:43 Multiple sclerosis 97715050 G35 Receives IV tysabri monthlyFol lows with Dr. Pradeep Jimenestriptyl ine 50 mg BID Baclofen 20 mg TIDGabapen tin 1200 mg TID Neurogenic urinary bladder 308777790 N31.8 Suprapubic catheter in placeFollo wed by Dr Zepeda urologyDai ly catheter careMonito r Viral hepatitis C 609539 07 B17.10 s/p Harvoni treatmentH CV RNA undetectab le in 2017 Psoriasis 2940230 L40.0 Triamcinol one prnDerm consult prnMonitor Tobacco de pendence syndrome 44458432 F17.210 Smoking cessation encouraged -patient uninterest ed currently [id number] EVA RENEE [facility] on [address] [place] [id number] 10/07/2017 14:11:13 10/13/2017 16:12:46 Multiple sclerosis 11817162 G35 Receives IV tysabri monthlyFol lows with Dr. Pradeep Zelayaiptyl ine 50 mg BID Baclofen 20 mg TIDGabapen tin 1200 mg TID Neurogenic urinary bladder 814156772 N31.8 Suprapubic catheter in placeFollo wed by Dr Zepeda urologyDai ly catheter careMonito r Viral hepatitis C 052245 07 B17.10 s/p Harvoni treatmentH CV RNA undetectab le in 2017 Psoriasis 9149466 L40.0 Triamcinol one prnDerm consult prnMonitor Tobacco de pendence syndrome 03816285 F17.210 Smoking cessation encouraged -patient uninterest ed currently Constipation 69458909 K5 9.09 Add colace 100 mg BIDSenna 8.6 (2) tabs qhs [id number] Alka Schaeffer MD [facility] on [address] [place] [id number] 12/14/2017 13:52:42 12/27/2017 09:29:13 Constipation 77707451 K59.09 Well controlled on colace 100 mg BID and Senna 8.6 (2) tabs qhs. Multiple sclerosis 66810 007 G35 Continue IV tysabri monthly, per neuro. F/U with neuro (Dr. Fernández) as planned. Continue amitriptyl ine 50 mg BID, Baclofen 20 mg TID and gabapentin 1200 mg TID. Monitor sxs. Neurogenic urinary bladder 843336276 N31.8 Suprapubic catheter in placeFollo wed by Dr Zepeda, urologyDai ly catheter careMonito r Viral hepatitis C 769813 07 B17.10 s/p Harvoni treatmentH CV RNA undetectab le in 2017, recheck yearly Tobacco de pendence syndrome 40430090 F17.210 Pt. refusing assistance for smoking cessation. Continue to encourage quitting. Psoriasis 9499815 L40.0 Adequate control on triamcinol one 0.1%, BID prnDerm consult prnMonitor [id number] EVA RENEE [facility] on [address] [place] [id number] 12/15/2017 16:10:41 12/17/2017 11:49:24 Neurogenic urinary bladder 220625156 N31.8 UAC+S todaySend culture of discharge for testingChl amydia and gonorrhea screen -Suprapubi c catheter in placeFollo wed by Dr Zepeda, urologyDai ly catheter careMonito r [id number] Lexii [place] [facility] on [address] [place] [id number] 12/24/2017 13:54:20 12/27/2017 12:43:25 Seasonal allergic rhinitis 161847927 J30.2 Claritin 10 mg dailyAdd benadryl 50 mg Q6h prnMonitor sxs [id number] Lexii Yogesh [facility] on [address] [place] [address] 01/24/2018 16:11:59 01/26/2018 13:38:33 Abscess 709739559 L02.212 Abscess cleaned and gently drainedWar m compress to area TIDConside r antibiotic s if not resolving [id number] Lexii Zuñiga [facility] on [address] [place] [id number] 02/14/2018 09:11:48 02/17/2018 13:09:31 Multiple sclerosis 81222709 G35 Tecfidera 240 mg BIDAmitrip tyline 50 mg BIDBaclofe n 20 mg TIDGabapen tin 1200 mg TIDMonitor sxsF/u with neurology in May as scheduled Constipation 98502912 K5 9.09 Well controlled on colace 100 mg BID and Senna 8.6 (2) tabs qhs. Neurogenic urinary bladder 168502239 N31.8 Suprapubic catheter in placeFollo wed by Dr Zepeda, urologyOn Toviaz 8 mg dailyDaily catheter careMonito r Tobacco de pendence syndrome 44782667 F17.210 Pt. refusing assistance for smoking cessation. Continue to encourage quitting. [id number] Lexii Rickes [facility] on [address] [place] [id number] 02/28/2018 12:07:39 03/10/2018 12:30:42 Neurogenic urinary bladder 583390627 N31.8 Suprapubic catheter in placeFollo wed by Dr Zepeda, urologyWil l d/c Toviaz as patient reporting side effects are not tolerableC ont. myrbetriq 50 mg dailyDaily catheter [place]Mon[place] r [id number] Lexii Zuñiga [facility] on [address] [place] [id number] 04/29/2018 13:57:16 05/04/2018 15:20:14 Altered mental status 288172213 R41.82 See HPIPatient inhaled unknown substanceN ow with tachycardi a and hypotensio nTransfer to ED for urgent eval Drug-induc ed hypotension 393355071 I95.2 Inhalation [place] [id number] Alka Schaeffer MD [facility] on [address] [place] [id number] 05/17/2018 14:06:31 05/23/2018 11:33:39 Multiple sclerosis 61320821 G35 No longer on tysabri, now getting Tecfidera 240 mg BID, per neuro. F/U with neuro (Dr. Fernández) as planned. WIth trouble sleeping due to pain and spasms. Will increase amitriptyl ine from 50 mg BID to 50 mg qAM and 100 mg qhs. Continue Baclofen 20 mg TID and qd prn, and gabapentin 1200 mg TID. Monitor sxs. Constipation 05745557 K5 9.09 Well controlled on colace 100 mg BID and Senna 8.6 (2) tabs qhs. Neurogenic urinary bladder 593332714 N31.8 Suprapubic catheter in placeFollo wed by Dr Zepeda, urologyDai ly catheter careMonito r Viral hepatitis C 291059 07 B17.10 s/p Harvoni treatmentH CV RNA undetectab le in 2017, to be rechecked yearly, was due in 04/02. will order now. Tobacco de pendence syndrome 68098074 F17.210 Pt. refusing assistance for smoking cessation. Continue to encourage quitting. Psoriasis 6494982 L40.0 Adequate control on triamcinol one 0.1%, BID prnDerm consult prnMonitor [id number] Lexii Zuñiga [facility] on [address] [place] [id number] 05/18/2018 14:08:04 05/23/2018 12:07:42 Cannabis abuse 48896008 F12.220 Suspect marijuana use however patient denies thisCurren tly appears stable and patient in no acute distressMo nitor and if patient with change in LoC [facility] [id number] [facility] [address] [place] [id number] 06/06/2018 14:26:05 06/07/2018 09:43:54 Multiple sclerosis 08046285 G35 Increased pain/muscl e spasmsIncr ease baclofen 30 mg TIDAdd valium 2 mg Q8h prn for spasmCont. Tecfidera 240 mg BIDAmitrip tyline 50 mg BIDGabapen tin 1200 mg TIDMonitor sxsF/u with neurology as scheduled [id number] EVA RENEE [facility] on [address] [place] [id number] 3 06/23/2018 14:43:45 06/29/2018 15:35:25 Multiple sclerosis 11608968 G35 Increased pain/muscl e spasmsIncr ease baclofen to 40 mg TIDchange frequency of valium to 2 mg Q6h prn for spasmCont. Tecfidera 240 mg BIDAmitrip tyline 50 mg BIDGabapen tin 1200 mg TIDMonitor sxsF/u with neurology as scheduled [id number] Lexii [place] [facility] on [address] [place] [id number] 06/28/2018 11:27:09 07/01/2018 10:54:05 Multiple sclerosis 99066324 G35 Increased pain/muscl e spasms-poo rly controlled with current regimenWil l add methadone 5 mg daily-titr ate for pain control, discussed with Dr. Schaeffer in adding this medication Increase valium 5 mg Q6h prnBaclofe n 40 mg TIDTecfide ra 240 mg BID Amitriptyl ine 50 mg BIDGabapen tin 1200 mg TIDMonitor sxsF/u with neurology as scheduled [id number] Lexii Yogesh [facility] on [address] [place] [id number] 07/11/2018 14:05:58 07/14/2018 15:47:53 Candidal balanitis 73406358 B37.42 Start clotrimazo le 1% cream to penile head BID x 10 days [id number] Alka Schaeffer MD [facility] on [address] [place] [address] 07/15/2018 10:40:00 07/19/2018 14:34:44 Nausea and vomiting 42076395 R11.2 Likely gastroente ritis, but with hx of eating shrimp fried rice last night, could also be food poisoning. Also with indwelling judge, could be UTI. Will get CBC, CMP and U/A and C&S. Will start pepto bismol 524 mg TID today, then prn and zofran 4 mg q 4 hrs prn nausea. Monitor for fever or other signs of sepsis. Tachycardia 9459324 R00. 0 With tachycardi a, some concern for dehydratio n, he does not infrequent ly run a pulse in the low 100s, but this is high even for him and he does not appear anxious. Will check STAT CMP and U/A and C&S to evaluate fluid status. [id number] EVA RENEE [facility] on [address] [place] [id number] 07/18/2018 08:35:05 07/21/2018 16:19:03 Constipation 52305343 K59.09 colace 100 mg BIDSenna 8.6 (2) tabs qhsAdd Miralax 17 grams daily in fluid of choice, monitor effect [id number] Alka Schaeffer MD [facility] on [address] [place] [id number] 07/19/2018 12:46:48 07/21/2018 16:25:30 Constipation 77198545 K59.09 Continue colace 100 mg BID and Senna 8.6 (2) tabs qhsAnd increase Miralax to 17 grams BID in fluid of choice, monitor effect. Nausea and vomiting 1693 2000 R11.2 resolved Tachycardia 1365310 R00. 0 Improved back to baseline since acute illness resolved. [id number] EVA RENEE [facility] on [address] [place] [id number] 07/28/2018 14:31:11 08/02/2018 14:12:08 Multiple sclerosis 36611647 G35 Increased pain/muscl e spasms-poo rly controlled with current regimenD/C methadone as pt has had a decline in condition, spoke with covering MD about this decisionde crease valium to 2 mg Q 6 h prnAdd norco 5/325 mgcontinue :Baclofen 40 mg TIDTecfide ra 240 mg BID Amitriptyl ine 50 mg BIDGabapen tin 1200 mg TIDMonitor sxsF/u with neurology as scheduled [id number] Bib Petersen MD [facility] on [address] [place] [phone] 3 08/05/2018 12:53:27 08/11/2018 14:25:39 Multiple sclerosis 68363187 G35 Wheelchair bound, having spastic movementsF ollowed closely by Dr. Fernández, continue to follow his recsContin ue medication regimen and physical therapy Neurogenic urinary bladder 165927958 N31.8 Suprapubic catheter in placeFollo wed by Dr Zepeda, urologyDai ly catheter careMonito r Viral hepatitis C 921962 07 B17.10 s/p Harvoni treatmentI n remission now, continue to monitor Tobacco de pendence syndrome 14163990 F17.210 Wishes to continue smokingCon tinue to encourage cessation Opioid dependence 236226 00 F11.20 hx of abusecurre ntly on low dose PRN norco for painMonito r closely [id number] EVA RENEE [facility] on [address] [place] [id number] 08/09/2018 14:12:46 08/10/2018 11:40:01 Constipation 78755012 K59.09 Change miralax and colace to PRN due to loose stoolsSenn a 8.6 (2) tabs qhsmonitor effect, [place] [id number] Kemi HansonMAO serna [facility] on [address] [place] [address] 08/28/2018 12:55:07 08/31/2018 14:14:26 Chronic pain 22879952 G89.29 D/C ibuprofen and Motrin. Tramadol 50 mg q 6 hrs. Acetominop hen 650 mg QID. Continue gabapentin 600 mg 2 tabs TID. [place] 5/325 mg q 6 hrs prn severe pain. Multiple sclerosis 77521 007 G35 Tecfidera 240 mg BID Baclofen 40 mg TID Valium 2 mg q 6 hrs prn shaking / anxiety. follow up with neuro. Neurogenic urinary bladder 768576829 N31.9 Increase oxybutynin to 10 mg QD Follow up with urology. [id number] EVA RENEE [facility] on [address] [place] [id number] 3 09/06/2018 10:04:28 09/08/2018 10:32:50 Impacted cerumen in left ear 1836001107 610618 H61.22 debrox gtts- 5 to left ear QHS x 3 days then flush with warm NS on 4 daymonitor for resolution [id number] EVA RENEE [facility] on [address] [place] [address] 3 09/20/2018 09:52:09 09/23/2018 11:22:38 Multiple sclerosis 51799553 G35 Tecfidera 240 mg BID Baclofen 40 mg TID Valium 2 mg q 6 hrs prn shaking / anxiety.Ch genesis tizanidine 8 mg to TID instead of BID, monitor for effectfoll ow up with [place] needed [id number] EVA RENEE [facility] on [address] [place] [phone] 3 09/27/2018 11:38:40 09/28/2018 19:31:38 Multiple sclerosis 74788384 G35 Tecfidera 240 mg BID Baclofen 40 mg TID Valium 2 mg q 6 hrs prn shaking / anxiety.Co ntinue tizanidine 8 mg TIDfollow up with neuro as neededsee HPI about scooter Chronic pain 81394426 G8 9.29 Tramadol 50 mg q 6 hrsacetami nophen 650 mg QIDContinu e gabapentin 600 mg 2 tabs TID. [place] 5/325 mg q 6 hrs prn severe pain. Neurogenic urinary bladder 332025841 N31.8 oxybutynin 10 mg QDFollow up with urology. Viral hepatitis C 836010 07 B17.10 s/p Harvoni treatmentI n remission now, continue to monitor Tobacco de pendence syndrome 27890533 F17.210 Wishes to continue smokingCon tinue to encourage cessation Opioid dependence 700183 00 F11.20 hx of abusecurre ntly on low dose PRN norco for painMonito r closely [id number] Lexii [place] [facility] on [address] [place] [id number] 3 10/13/2018 08:23:43 10/18/2018 12:58:20 Constipation 77963106 K59.09 Increase senna 2 tabs BIDIncreas e miralax 17 g BIDBowel protocol prnMonitor Multiple sclerosis 88765 007 G35 Valium 5 mg Q6h prn Baclofen 40 mg TIDTecfide ra 240 mg BID Amitriptyl ine 50 mg BIDGabapen tin 1200 mg TIDMonitor sxsF/u with neurology as scheduled Neurogenic urinary bladder 371475309 N31.8 Suprapubic catheter in placeFollo wed by Dr Zepeda, urologyOxy butynin 10 mg daily Daily catheter [place]Monito r [id number] Lexii Zuñiga [facility] on [address] [place] [address] 81071[address] 3 10/17/2018 14:02:44 10/20/2018 09:20:38 Tobacco dependence syndrome 88800998 F17.210 Refuses smoking cessation, I will quit when I perish Dat l add albuterol inhaler PRN [id number] Lexii Zuñiga [facility] on [address] [place] [id number] 3 11/03/2018 13:31:14 11/10/2018 08:54:46 Chronic pain 59696580 G89.29 Start methadone 10 mg BIDD/c tramadol when methadone availableM onitor for pain control Multiple sclerosis 78205 007 G35 Valium 5 mg Q6h prn Baclofen 40 mg TIDTecfide ra 240 mg BID Amitriptyl ine 50 mg BIDGabapen tin 1200 mg TIDMonitor sxsFollows with neurology [id number] Toñito Denson MD [facility] on [address] [place] [id number] 3 12/12/2018 16:27:48 12/14/2018 15:51:19 Multiple sclerosis 99912873 G35 slow progressiv e declinecon tinue supportive carepatien t wishes to transition back to community if services can be put in place Tobacco de pendence syndrome 80779879 F17.290 encourage quitting Neurogenic urinary bladder 732470478 N31.8 judge dependentm onitor, currently at baselineur ology eval prn Chronic pain 17326951 G8 9.29 maintained on methadoneh x heroin and cocaine usemonitor [place]izatio [place] [id number] Lexii Zuñiga [facility] on [address] [place] [id number] 3 12/28/2018 11:47:03 12/30/2018 11:56:37 Pain in right arm 628177292 M79.601 Suspect secondary to flu vaccineMon itor and consider further w/u if pain persists or worsens [id number] EVA RENEE [facility] on [address] [place] [address] [id number] 3 12/29/2018 14:24:10 01/02/2019 15:52:48 Acute urinary tract infection 079106286 N39.0 Add bactrim DS 800 /160 mg BID x 5 daysmonito r for improvemen tchange abx if sensitivit ies warrant a change [id number] Lexii Zuñiga [facility] on [address] [place] [address] 45004[address]600 3 01/18/2019 13:59:55 01/24/2019 11:05:58 Multiple sclerosis 74295736 G35 Add Valium 5 mg Q8h prn ContBaclof en 40 mg TIDMonitor sxsFollows with neurology [id number] Lexii Zuñiga [facility] on [address] [place] [id number] 3 03/01/2019 13:01:51 03/03/2019 11:45:54 Multiple sclerosis 71406356 G35 Increase methadone 10 mg TIDBaclofe n 40 mg TIDGabapen tin 1200 mg TIDTizanid ine 8 mg TIDMonitor sxsFollows with neurology Tobacco de pendence syndrome 96490787 F17.290 encourage quitting Neurogenic urinary bladder 772107850 N31.8 judge dependentm onitor, currently at baselineur ology eval prn Chronic pain 61971260 G8 9.29 maintained on methadone- increase as abovehx heroin and cocaine usemonitor [place]izatio n [id number] Lexii Zuñiga [facility] on [address] [place] [address] [id number] 3 03/07/2019 11:12:49 03/10/2019 15:34:01 Insomnia 526419644 G47.09 Add melatonin 5 mg QHSMonitor for effect [id number] Toñito Denson MD [facility] on [address] [place] [id number] 3 04/03/2019 16:20:32 04/07/2019 16:09:51 Sepsis caused by Escherichia coli 391078192 A41.51 see HPI sepsis secondary to UTInow to complete cefpodoxim eadd probioticm onitor to resolution Neurogenic urinary bladder 558862865 N31.8 see abovesupra -pubic cath dependentu rology eval prn Tobacco de pendence syndrome 50200148 F17.290 encourage quittingst ill active smoker [id number] Lexii Zuñiga [facility] on [address] [place] [address] [id number] 3 04/11/2019 09:17:34 04/18/2019 09:00:15 Sepsis caused by Escherichia coli 937593733 A41.51 see HPI sepsis secondary to UTIHas now completed antibiotic courseMoni tor for recurrent sxs Neurogenic urinary bladder 756943750 N31.8 see abovesupra -pubic cath dependentu rology eval prn Tobacco de pendence syndrome 38166228 F17.290 encourage quittingst ill active smoker Multiple sclerosis 26786 007 G35 Methadone 10 mg TIDBaclofe n 40 mg TIDGabapen tin 1200 mg TIDTizanid ine 8 mg TIDMonitor sxsFollows with neurology [id number] MD DENISE Johnson [address] [place] [address] 04/27/2019 13:52:48 05/01/2019 11:12:04 Multiple sclerosis 17188547 G35 at baselineco ntinue supportive caretransi tion back to community if services can be put in placecurre ntly stable at baseline Neurogenic urinary bladder 689393879 N31.8 recent sepsis secondary to UTIsupra-p ubic cath dependentf ollowed by urology Primary insomnia 3371390 F51.01 melatonin 5 mg qhsmonitor for sx relief [id number] MAO Moffett [facility] on [address] [place] [address] 05/11/2019 07:27:32 05/15/2019 15:35:43 Sepsis due to urinary tract infection 458556139 A40.0 see hpiceftin 500 mg 1 bid x 4 daysprobio tic bid x 7 dayswill start methenamin e 1 gram bid on 05/14 for UTI prophylaxi svitamin C 500 mg 1 bid Neurogenic urinary bladder 057045856 N31.9 will f/u with urology in 3 weeks for catheter changeoxyb utynin 5 mg qd discuss prophylaxi s treatment as above Viral hepatitis C 112240 07 B19.20 known hx ofwill order CMP weekly due to starting methenamin e on /u with gi prn Multiple sclerosis 55943 007 G35 baclofen 40 mg itdamantad ine 100 mg bidvalium 5 mg q 8 hrstizanid ine 8 mg tidmonitor Chronic pain 00159382 G8 9.29 gabapentin 1200 mg tidmethado ne 10 mg q 8 hrsmonitor for pain relief Constipation 51673186 K5 9.00 senna 8.6 mg 2 bidcolace 100 mg bidmonitor bowels [id number] Lexii Zuñiga [facility] on [address] [place] [address] [id number] 3 05/23/2019 13:05:38 05/26/2019 14:08:40 Obstruction of pharynx by food 348290199 T17.220A Resolved with administra tion of abdominal thrustsNow appears back to baselineMo nitor for signs aspiration pneumoniaM onitor vitals Qshift x 48h [id number] Lexii Zuñiga [facility] on [address] [place] [address] [phone] 3 06/20/2019 12:10:10 06/22/2019 10:18:39 Neurogenic urinary bladder 458450924 N31.2 suprapubic catheter in placeoxybu tynin 5 mg qd hiprex 1 g BIDcathete r flushed daily with acetic acidmonito r for recurrent infection Viral hepatitis C 154044 07 B19.20 s/p treatment with HarvoniVir al load undetectab le 03/2017 Multiple sclerosis 53741 007 G35 baclofen 40 mg tidamantad ine 100 mg bidvalium 5 mg tidtizanid ine 8 mg tidmonitor Chronic pain 69751710 G8 9.29 gabapentin 1200 mg tidmethado ne 10 mg tidpain well controlled on current regimenmon itor [id number] Lexii Zuñiga [facility] on [address] [place] [address] 91420-219 3 08/01/2019 12:12:55 08/04/2019 09:01:17 Pain in right lower limb 081134772 M79.604 Now appears resolvedNo current pain or rednessWil l monitor [id number] Lexii Zuñiga [facility] on [address] [place] [address] [id number] 3 08/22/2019 11:54:08 08/24/2019 10:45:03 Visual hallucinations 28383522 R44.1 UA, C&S, BMP, CBC with diff orderedMon itor sxsPsych eval if no evidence of infection found [id number] Tanya Bailey MD [facility] on [address] [place] [address] 53415-731 3 09/13/2019 08:20:20 09/19/2019 09:55:09 Chronic pain 75800972 G89.29 amitriptyl ine 150 mg dailygabap entin 1200 mg tidmethado ne 10 mg tidwill monitor Multiple sclerosis 42641 007 G35 amantadine 100 mg bidtizanid ine 8 mg tidtecfide ra 240 mg biddiazepa m 5 mg tidbaclofe n 40 mg tidwill monitor Neurogenic urinary bladder 559258323 N31.9 amitriptyl ine 150 mg at hsoxybutyn in 5 mg suprapubic catheterfu urology prnwill monitor Seizure disorder 0601683 02 G40.909 phenytoin 100 ER mg tidwill monitor Opioid dependence 202388 00 F11.20 methadone 10 mg qshiftwill monitor [id number] Lexii Zuñiga [facility] on [address] [place] [address] [id number] 3 09/27/2019 15:19:48 10/03/2019 14:10:37 Candidiasis of skin 13545441 B37.2 Add nystatin powder BID to groin rashMonito r to resolution [id number] Lexii Zuñiga [facility] on [address] [place] [address] 71307-094 3 10/11/2019 11:57:02 10/13/2019 14:11:32 Primary insomnia 8468234 F51.01 Increase melatonin 10 mg QHSMonitor [id number] Lexii Zuñiga [facility] on [address] [place] [address] [id number] 3 10/24/2019 11:57:15 10/27/2019 13:35:56 Open wound of thigh 221922505 S71.101A No signs of infection currentlyC ont with bacitracin and DCD dailyMonit or for signs of infection [id number] MAO Moffett [facility] on [address] [place] [address] 16375-069 3 11/03/2019 13:05:03 11/07/2019 12:20:36 Chronic pain 02898915 G89.29 amitriptyl ine 150 mg qdgabapent in 1200 mg tidmethado ne 10 mg tidmonitor for pain relief, bowels Multiple sclerosis 47510 007 G35 amantadine 100 mg bidtizanid ine 8 mg tidtecfide ra 240 mg biddiazepa m 5 mg tidbaclofe n 40 mg tidmonitor for spasms, adjust meds prn Neurogenic urinary bladder 687651665 N31.9 amitriptyl ine 150 mg qhsoxybuty liseth 5 mg qd suprapubic catheterf/ u urology prnmonitor Seizure disorder 9561382 02 G40.909 no seizure activityph enytoin 100 ER mg tidmonitor for seizure activity Opioid dependence 991014 00 F11.20 methadone 10 mg tidsupport primo [facility] [id number] MAO Moffett [facility] on [address] [place] [address] [id number] 3 11/16/2019 13:10:26 11/22/2019 09:40:24 Neurogenic urinary bladder 711463202 N31.9 will get UA C & S as pt may have UTIamitrip tyline 150 mg qhsoxybuty liseth 5 mg qd suprapubic catheterf/ u urology prnmonitor Lethargy 802298800 R53.8 3 get CBC with diff and CMP on itor for worsening sx Primary insomnia 6582192 F51.01 continue melatonin 10 mg at hs and gabapentin 1200 mg tidwill add trazodone 25 mg at hs prn insomniaco nsider scheduling it if pt takes it regularly [id number] Lexii Zuñiga [facility] on [address] [place] [address] 14541-535 3 12/04/2019 08:45:36 12/06/2019 13:52:17 Sepsis due to urinary tract infection 307600906 N30.00 R65.20 Complete course CeftinProb ioticMonit or to resolution Neurogenic urinary bladder 781241636 N31.2 suprapubic catheter in placeHold Hiprex 1 g BID until antibiotic course completeIn crease acetic acid flush to BIDDaily catheter careMonito rFollows with urology, Dr Zepeda Multiple sclerosis 36081 007 G35 baclofen 40 mg tidamantad ine 100 mg bidvalium 5 mg tidtizanid ine 8 mg tidSupport primo careMonito r Seborrheic dermatitis 50 286844 L21.8 Start ketoconazo le 2% cream to facial rash BID x 4 weeksMonit or [id number] Lexii Ames [facility] on [address] [place] [address] 37741-095 3 12/12/2019 12:16:40 12/14/2019 13:25:55 Sepsis due to urinary tract infection 833745320 N30.00 R65.20 Antibiotic course completedA ppears resolvedMo nitor for recurrent sxs Neurogenic urinary bladder 550767908 N31.2 suprapubic catheter in placeHipre x 1 g BIDAcetic acid catheter flush BIDDaily catheter careMonito rFollows with urology, Dr Zepeda Multiple sclerosis 90754 007 G35 baclofen 40 mg tidamantad ine 100 mg bidvalium 5 mg tidtizanid ine 8 mg tidSupport primo careMonito r [id number] Lexii Zuñiga [facility] on [address] [place] [address] 35956-755 3 12/19/2019 14:13:42 12/22/2019 14:06:10 Neurogenic urinary bladder 751560544 N31.2 Now has suprapubic catheter and judge in placeTo f/u with urology next week for upsizing of suprapubic catheterMo nitor for any s&s of infectionC ontHiprex 1 g BIDAcetic acid catheter flush BIDDaily catheter care [id number] Lexii Ames [facility] on [address] [place] [address] [phone] 3 12/26/2019 09:55:37 01/01/2020 16:14:29 Neurogenic urinary bladder 647693600 N31.2 Now has suprapubic catheter and judge in placeHas urology f/u scheduled tomorrow for upsizing of suprapubic catheterCo nt Hiprex 1 g BIDAcetic acid catheter flush BIDDaily catheter care Fever 587459560 R50.81 Concern for recurrent urinary infectionO btain STAT UA, C&S, BMP and CBC w diff, blood cultures x 2Give ceftriaxon e 1 g IM x 1 nowMonitor [id number] Lexii Ames [facility] on [address] [place] [address] 12523-512 3 01/02/2020 12:44:33 01/04/2020 13:36:25 Sepsis due to urinary tract infection 902642383 N30.00 R65.20 Completed course IV cefepimePr obioticMon itor for recurrent infection Neurogenic urinary bladder 064232872 N31.2 suprapubic catheter and judge in placeF/u with urology tomorrow for up-sizing of suprapubic catheterDa edmund catheter care Monitor Multiple sclerosis 34317 007 G35 baclofen 40 mg tidamantad ine 100 mg bidvalium 5 mg tidtizanid ine 8 mg tidSupport primo careMonito r [id number] Tanya Bailey MD [facility] on [address] [place] [address] 70986-848 3 01/03/2020 08:24:20 01/05/2020 12:58:29 Sepsis due to urinary tract infection 772619582 A41.9 resolved Primary insomnia 6908265 F51.01 trazodone 25 mg at hs prnmelaton in 5 mg at hs will monitor Neurogenic urinary bladder 755035782 N31.8 amitriptyl ine 150 mg at hsoxybutyn in 5 mg suprapubic catheterfu urologywil l monitor Multiple sclerosis 68201 007 G35 amantadine 100 mg bidtecfide ra 240 mg biddiazepa m 5 mg tidbaclofe n 40 mg tidwill monitor Chronic pain 28290870 G8 9.29 amitriptyl ine 100 mg qhsgabapen tin 1200 mg tidmethado ne 10 mg tidwill monitor Seizure disorder 0001771 02 G40.909 phenytoin 100 ER mg tidwill monitor Mixed anxi ety and depressive disorder 930812717 F41.8 diazepam 5 mg tidwill monitor [id number] Lexii Yogesh [facility] on [address] [place] [address] 89868-783 3 01/10/2020 11:06:12 01/12/2020 11:29:35 Sepsis due to urinary tract infection 764854749 N30.00 R65.20 Completed course IV cefepimePr obioticMon itor for recurrent infection Neurogenic urinary bladder 581324963 N31.2 suprapubic catheter and judge in placeF/u with urology as scheduledD aily catheter care Monitor Multiple sclerosis 04150 007 G35 baclofen 40 mg tidamantad ine 100 mg bidvalium 5 mg tidtizanid ine 8 mg tidSupport primo careMonito r [id number] EVA RENEE [facility] on [address] [place] [address] 67747-980 3 02/01/2020 14:28:52 02/05/2020 16:19:03 Neurogenic urinary bladder 713246564 N31.2 suprapubic catheter and judge in placeadd flush of judge cath qhs with 30 cc NS, monitor for returnF/u with urology as scheduledD aily catheter care Monitor [id number] Lexii Zuñiga [facility] on [address] [place] [address] 70565-405 3 02/21/2020 12:41:20 02/23/2020 14:16:33 Seborrheic dermatitis 77079800 L21.8 Start ketoconazo le 2% cream to facial rash BID x 4 weeks then cont PRNMonitor [id number] Lexii Zuñiga [facility] on [address] [place] [address] 68325-329 3 03/04/2020 13:28:16 03/06/2020 09:45:14 Acute urinary tract infection 162788297 N39.0 Will treat with Macrobid (to cover VRE) and Ceftin (to cover providenci a)Culturel le BID x 10 daysMonito r 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 856414997 B95.2 As above Neurogenic urinary bladder 258405708 N31.2 suprapubic catheter and judge in placeF/u with urology as scheduledD aily catheter care Monitor Multiple sclerosis 98543 007 G35 baclofen 40 mg tidamantad ine 100 mg bidvalium 5 mg tidtizanid ine 8 mg tidSupport primo careNeurol ogy followsMon itor [id number] Lexii Zuñiga [facility] on [address] [place] [address] [id number] 3 03/27/2020 13:51:22 03/29/2020 16:15:11 Asymptomatic bacteriuria 533248917 R82.71 Culture + providenci a stuartiiLi chantelle colonizati on given lack of fever or leukocytos is Defer antibiotic treatmentW ill monitor [id number] Lexii Zuñiga [facility] on [address] [place] [address] 72932-796 3 04/16/2020 15:21:33 04/17/2020 13:36:27 Multiple sclerosis 81253890 G35 With continued right arm painIncrea se methadone 15 mg TIDContbac lofen 40 mg TIDamantad ine 100 mg BIDvalium 5 mg TIDtizanid ine 8 mg TIDgabapen tin 1200 mg TIDSupport primo careNeurol ogy followsMon itor Urinary tr act infectious disease 24012045 N39.0 Complete course CeftinAdd probioticM onitor Neurogenic urinary bladder 868837910 N31.2 suprapubic catheter in placeF/u with urology as scheduledD aily catheter care Monitor [id number] Lexii Zuñiga [facility] on [address] [place] [address] [id number] 3 04/17/2020 14:27:50 04/18/2020 09:56:34 Multiple sclerosis 02349822 G35 With continued right arm painMethad one 15 mg TIDAdd dilaudid 2 mg Q4h PRNContbac lofen 40 mg TIDamantad ine 100 mg BIDvalium 5 mg TIDtizanid ine 8 mg TIDgabapen tin 1200 mg TIDSupport primo careNeurol ogy followsMon itor [id number] Lexii Zuñiga [facility] on [address] [place] [address] 63423-166 3 04/23/2020 08:28:35 04/24/2020 13:23:59 Multiple sclerosis 46338300 G35 Methadone 15 mg TID Dilaudid 2 mg Q4h PRN for breakthrou gh painbaclof en 40 mg TID amantadine 100 mg BIDvalium 5 mg TIDtizanid ine 8 mg TIDgabapen tin 1200 mg TIDSupport primo careNeurol ogy followsMon itor Neurogenic urinary bladder 857088160 N31.2 suprapubic catheter in placeF/u with urology as scheduledD aily catheter care Monitor [id number] EVA RENEE [facility] on [address] [place] [address] 02335-360 3 05/03/2020 11:44:13 05/06/2020 12:57:00 Allergic conjunctivitis 679196357 H10.11 refresh 2 gtts to right eye BID until resolvedif does not improve change to azestaline gtts or pataday [id number] Lexii Zuñiga [facility] on [address] [place] [address] 94764-099 3 05/06/2020 10:28:12 05/07/2020 13:44:06 Allergic conjunctivitis 899102577 H10.13 Add Zaditor gtts BID x 14 daysMonito r to resolution [id number] Alka Schaeffer MD [facility] on [address] [place] [address] 72399-376 3 05/07/2020 20:00:17 05/13/2020 16:27:03 Multiple sclerosis 00706945 G35 Pain being managed with methadone 15 mg TID, gabapentin 1200 mg TID, and Dilaudid 2 mg Q4h PRN for breakthrou gh painSpasms managed with baclofen 40 mg TID, valium 5 mg TID, and tizanidine 8 mg TID. And on amantadine 100 mg BID and teclidera 240 mg BID for sx prevention .Continue supportive careF/U with neuro as planned. Neurogenic urinary bladder 766165571 N31.2 Continue suprapubic catheter.F /u with urology as scheduledD aily catheter care Monitor Allergic conjunctivitis 198216967 H10.11 Started on Zaditor gtts BID x 14 days yesterday. Continue this and refresh 2 gtts to right eye BID and cetirizine 10 mg qd.Conside r eye consult if not improving. Primary insomnia 5125034 F51.01 Continue melatonin 5 mg qhs, and trazodone 25 mg qhs prnMonitor sleep patterns. Seizure disorder 7664417 02 G40.909 Continue phenytoin 100 ER mg TIDMonitor for seizure activity. Mixed anxi ety and depressive disorder 888651862 F41.8 Continue amitriptyl ine 100 mg qhs and meds as above. Monitor mood. Psych involved. Recurrent urinary tract infection 474438293 N30.20 Continue fosfomycin 3 gms q 2 weeks for prevention .Monitor for sxs. Sinus tachycardia 289699 01 R00.0 Started on metoprolol 25 mg qd during recent hospitaliz ation. Pulse still on high side, but staying <100. Monitor pulse and f/u wiht cardio prn. [id number] MAO Moffett [facility] on [address] [place] [address] 88207-476 3 06/06/2020 11:18:57 06/10/2020 14:38:11 Oxygen saturation below reference range 690294394 R79.81 getting CXR now monitor O2 sat again and if below 90% then apply oxygen at 2 LPM monitor for worsening sxs Constipation 98717486 K5 9.00 senna 8.6 mg 2 bid colace 100 mg bid miralax bid mag citrate 2 x week monitor bowels closely Pain of ri ght elbow joint 5376758285 9694033 M25.521 xray results pending does not appear infected monitor [id number] [facility] on [address] [place] [address] 75352-271 3 07/02/2020 15:17:48 07/04/2020 12:14:22 Constipation 33704917 K59.00 senna 8.6 mg 2 bid colace 100 mg bid miralax bid mag citrate 2 x week Multiple sclerosis 99422 007 G35 Pain being managed with methadone [...] with neuro as planned. Neurogenic urinary bladder 274356653 N31.2 Continue suprapubic catheter. F/u with urology as scheduled Daily catheter care Recurrent urinary tract infection 474453205 N30.20 hx of, monitor for recurrance Allergic conjunctivitis 321697735 H10.11 cetirizine 10 mg qd Primary insomnia 7183302 F51.01 Continue melatonin 5 mg qhs, and trazodone 25 mg qhs prn Seizure disorder 1436892 02 G40.909 Continue phenytoin 100 ER mg TID Mixed anxi ety and depressive disorder 996695782 F41.8 Continue amitriptyl ine 100 mg qhs and meds as above. Sinus tachycardia 501864 01 R00.0 started on metoprolol succ 25 mg during his stay here due to tachycardi a PCP to monitor Weight loss 29524619 R63 .4 patient will require ensure drinks [...] Name 05/03/2020 1 [place] Noe Vieira [id number] Reyna Cladonna 05/06/2020 1 [place] Noe Vieira [id number] Reyna Cladonna 05/07/2020 1 [place] Noe Vieira [id number] Reyna Clapper 06/06/2020 1 [place] Noe Vieira [id number] Reyna Clapper 07/02/2020 1 [place] Noe Vieira [id number] Reyna [facility] Notes Date Note Type Note Provider Name [...] is bothersome, no associated discharge. EVA RENEE [address] [place] [address], [address], [place], [address], [facility] 05/03/2020 12:29:59 05/06/2020 text/html 39 yo male seen for acute rounding. Patient c/o red, itchy, watery eyes. Denies any eye pain, change in vision or purulent discharge. Lexii dhillon, [facility] 05/06/2020 10:49:17 05/07/2020 text/html This is a 39 yo man, LTC pt., who I am seeing today for a routine MD rounding visit. He has been here since 08/2016 due to MS and difficulty with services in the community. But he tells me today he is moving to a nursing home. He is excited about this. He has no c/o today, he says the eye drops are helping his eye irritation. Nursing has no concerns. He continues to smoke cigarettes. His PMH includes multiple sclerosis, neurogenic bladder, hepatitis C-s/p Harvoni, and psoriasis. He denies c/o today and nursing has no concerns. Alka Schaeffer MD [address] [facility], [address], [place], [address], [facility] 05/12/2020 14:47:19 06/06/2020 text/html pt seen today fo r acute rounding visit. pt was sent out to hospital on 06/03 for right sided abd pain. 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 also of note pt is getting an xray of his right elbow for pain and edema. this was ordered last night for sxs. just now staff notes that his O2 sat is 86%, no SOB noted. lungs clear. pipe testing technician able to get CXR also now. MAO Moffett [address] [facility], [address], [place], [address], [facility] 06/06/2020 11:40:22 07/02/2020 text/html This is a 39 yo male, LTC pt., being seen today for discharge summary visit. He has been here since 08/2016 due to MS and difficulty with services in the community. He will be moving to a nursing home tomorrow who will continue caring for him. He has no c/o today, he is resting in his power chair watching TV. Nursing has no concerns, he continues to smoke cigarettes. OK for patient to dc to nursing home tomorrow with services, all RXs have been written and sent to [facility]. His PMH includes multiple sclerosis, neurogenic bladder, hepatitis C-s/p Harvoni, and psoriasis. He denies c/o today and nursing has no concerns. EVA RENEE [address] [facility], [address], [place], [address], [facility] 08/09/2020 11:48:11
--- OUTSIDE RECORDS SUMMARY | 2024-07-06 13:18 | XMS_ITS | Encounter Summary ---
Author Organization [facility] Address [address] [place] [address] Care Team Providers Care Machine Candle Molder Name Role Phone Tay Spencerdebbie Primary Care Provider [phone] Reason for Visit * Reason Onset Date Comments Fax Referral 07/29/2020 Encounter Details Date Type Department Care Team (Late st Contact Info) Description 07/29/2020 Telephone [facility] Central Scheduling Department [address] [place] [address] Telephone Intake, Staff Fax Referral Social History [...] She states that she has power of immigration attorney. Noe will be coming to the initial visit with someone from his custodial, but she is unable to attend the first visit. She will have the custodial bring 1. Copy of power of immigration attorney, 2. MRI results report from [facility] 2017. 3. Medication list, 4. Most recent PCP note. (she does not know PCP's name at the moment.) I have sent her the [employer] link, so that she can also send us records thru [employer]. His mother adds that he is a poor historian. * Telephone Encounter - Nickolas Sam - 07/29/2020 1:16 PM EDT [facility] has medical records of pt Pt's mother said the most recent MRI was in September 2016. To obtain this, mother said she was having difficult time. [facility] wants [facility] to fax them a request and they will send records. [facility] fax number: [phone] documented in this encounter Plan of Treatment Upcoming Encounters Date Type Department Care Team (Late st Contact Info) Description 07/13/2024 3:00 PM EDT Office Visit [facility] [address] [place] [address] Fur Dresser: Isaac Brumfield MD [address] [place] [address] [phone] documented as of this encounter Visit Diagnoses Not on filedocumented in this encounter Care Teams Machine Candle Molder Relationship Specialty Start Date End Date Emma Cross [address] [place] [address] PCP - General Internal Medicine 08/01/20 documented as of this encounter
--- OUTSIDE RECORDS SUMMARY | 2024-07-06 13:18 | XMS_ITS | Encounter Summary ---
Author Organization [facility] Address [address] [place] [address] Care Team Providers Care Childcare Aide Name Role Phone Emma Cross Primary Care Provider [phone] Reason for Visit * Reason Onset Date Comments RX refill 06/19/2021 Encounter Details Date Type Department Care Team (Late st Contact Info) Description 06/19/2021 Telephone [facility] Central Scheduling Department [address] [place] [address] Telephone Intake, Staff RX refill Social History [...] anything yet pls follow up once complete [phone] documented in this encounter Plan of Treatment Upcoming Encounters Date Type Department Care Team (Late st Contact Info) Description 07/13/2024 3:00 PM EDT Office Visit [facility] [address] [place] [address] [employer] Kettle Tender: Isaac Brumfield MD [address] [place] [address] documented as of this encounter Visit Diagnoses Not on filedocumented in this encounter Care Teams Childcare Aide Relationship Specialty Start Date End Date Emma Cross [address] [place] [address] PCP - General Internal Medicine 08/01/20 documented as of this encounter
--- OUTSIDE RECORDS SUMMARY | 2024-07-06 13:18 | XMS_ITS | Referral Summary ---
Author Organization [facility] Address [address] [place] [address] Care Team Providers Care Clerk Cashier Name Role Phone Emma Cross Primary Care Provider [phone] Allergies No known active allergies Medications acetaminophen [...] Description 07/13/2024 3:00 PM EDT Office Visit [facility] [address] [place] [address] Field Nurse Case Manager: Isaac Brumfield MD [address] [place] [address] Insurance [employer] Advance Directives Documents on File Type Date Recorded Patient Meter Reader Chief Expl anation Power of Deputy Attorney General 08/21/2020 6:37 PM 2018 Care Teams Clerk Cashier Relationship Specialty Start Date End Date Emma Cross [address] [place] [address] PCP - General Internal Medicine 08/01/20
--- OUTSIDE RECORDS SUMMARY | 2024-07-06 13:19 | XMS_ITS | Clinical Summary ---
Author Organization [facility] Address [address] [place] [address] Care Team Providers Care Ammonia Solution Preparer Name Role Phone Tay Emma Primary Care Provider [phone] Allergies No known active allergies Medications acetaminophen [...] Description 07/13/2024 3:00 PM EDT Office Visit [facility] [address] [place] [address] Social Work Manager: Isaac Brumfield MD [address] [place] [address] Health Maintenance Due Date Last Done Comments Cologuard 1978 Colon Cancer Screening 1978 Colonoscopy 1978 FOBT / Fit Test 1978 HIV Screening 1978 Hepatitis C Screening 1978 Sigmoidoscopy 1978 Hepatitis B Vaccines (1 of 3 - 19+ 3-dose series) 1997 COVID-19 Vaccine ( season) 2023 01/02/2022, 01/31/2021, 04/17/2020, Additional history exists Alcohol/Substance Use Screening 03/15/2024 Depression Screening and Follow-Up 03/15/2024 Social Drivers of Health Annual Screening 03/15/2024 Influenza Vaccine (Season Ended) 2024 02/25/2023, 01/22/2023, 01/02/2022, Additional history exists DTaP,Tdap,and Td Vaccines (2 - Td or Tdap) 07/19/2031 07/18/2021 RSV Vaccine (60+ years old and patients) (1 - 1-dose 75+ series) 2053 Pneumococcal Vaccine: Pediatric (0-5 Years) and At-Risk Patients (6-50 Years) Aged Out 08/19/2022 No longer eligible based on patient's age to complete this topic Insurance [facility] MEDICAID Advance Directives Documents on File Type Date Recorded Patient Content Producer Expl anation Power of Test Deskman 08/21/2020 6:37 PM 2018 Care Teams Ammonia Solution Preparer Relationship Specialty Start Date End Date DougArvind gamboayomaira [address] [place] [address] PCP - General Internal Medicine 08/01/20
--- OUTSIDE RECORDS SUMMARY | 2024-07-06 13:19 | XMS_ITS | Encounter Summary ---
Author Organization [facility] Address [address] [place] [address] Care Team Providers Care Make Up Girl Name Role Phone Emma Cross Primary Care Provider [phone] Encounter Details Date Type Department Care Team (Late st Contact Info) Description 07/15/2021 Telephone [facility] Central Scheduling Department [address] [place] [address] Telephone Intake, Staff Social History Tobacco Use [...] Hugo Caregiver reqs prescription be refilled at [facility] [phone] Sending TE to [facility] Mutiple Sclerosis Clinical Staff per DT to please obtain order from provider and send to above named pharmacy documented in this encounter Plan of Treatment Upcoming Encounters Date Type Department Care Team (Late st Contact Info) Description 07/13/2024 3:00 PM EDT Office Visit [facility] [address] [place] [address] Analytical Sciences Director: Isaac Brumfield MD [address] [place] [phone] documented as of this encounter Visit Diagnoses Not on filedocumented in this encounter Care Teams Make Up Girl Relationship Specialty Start Date End Date Emma Cross [address] [place] [address] PCP - General Internal Medicine 08/01/20 documented as of this encounter
== END 2024-07-06 11:27 | disposition home or self-care (01) ==
LOC: HO.HUSH 11:09
PROVIDERS: PCP Internal Medicine; Visit Provider Urology
DX: Z93.59 Other cystostomy status (principal); N31.9 Neuromuscular dysfunction of bladder, unspecified; N39.0 Urinary tract infection, site not specified
CPT/HCPCS: 99213; G2211

== ENCOUNTER → 2024-07-06 11:09 | Outpatient (BNVA) | payer OTHER, SELFPAY | PROVIDERS: PCP Internal Medicine; Visit Provider Urology | DX: N31.9 Neuromuscular dysfunction of bladder, unspecified (principal); N39.0 Urinary tract infection, site not specified; Z93.59 Other cystostomy status | CPT/HCPCS: 99212 ==

== ENCOUNTER 2024-07-11 20:48 | Emergency (ER) | payer OTHER, SELFPAY ==
--- NOTE | 2024-07-11 | ECG_ITS ---
Test Reason : CP Blood Pressure : */* mmHG Vent. Rate : 106 BPM Atrial Rate : 106 BPM P-R Int : 154 ms QRS Dur : 102 ms QT Int : 324 ms P-R-T Axes : 53 36 28 degrees QTcB Int : 430 ms Sinus tachycardia Otherwise normal ECG When compared with ECG of 26-Feb-2024 19:30, No significant change was found Referred By: Generic ED Physician Electronically Signed By: Raciel Ludwig
[2024-07-11 20:56] VITALS: BP 119/81; BP 121/74; PULSE 107; PULSE 110; RESP 16; TEMP 37.4; O2SAT 94; O2SAT 98; BMI 26.9
[2024-07-11 21:51] LABS: Alanine Aminotransferase 28 U/L (0-40); Albumin Level 3.5 g/dL (3.5-5.0); Alkaline Phosphatase 115 U/L (39-117); Anion Gap 11 (12-20); Aspartate Amino Transferase 24 U/L (5-37); Bilirubin Total 0.3 mg/dL (0.0-1.0); Blood Urea Nitrogen 12 mg/dL (9-16); Calcium 8.8 mg/dL (8.4-10.2); Carbon Dioxide 21 mmol/L (22-29); Chloride 107 mmol/L (96-108); Creatinine Clr Calc Pharmacy 160.2; Estimated Glomerular Filt Rate > 60; Glucose Random 243 mg/dL (60-115); Lipase 16 U/L (8-78); Potassium 4.4 mmol/L (3.3-5.1); Sodium 135 mmol/L (135-145); Total Protein 6.6 g/dL (6.5-8.0)
[2024-07-11 21:59] LABS: Troponin-I High Sensitivity < 2.7 ng/L (<3.5-35.0)
[2024-07-11 22:20] LABS: Basophils Percent Auto 0.6 % (0-2); Eosinophils Absolute Auto 0.1 X10*3/uL (0.0-0.4); Hematocrit 42.1 % (42.0-52.0); Hemoglobin 14.2 g/dl (14.0-18.0); Imm Gran Abs Auto 0.02 X10*3/uL (0.00-0.03); Imm Gran Pct Auto 0.4 % (0.0-0.4); Lymphocytes Absolute Auto 1.4 X10*3/uL (1.2-4.9); Lymphocytes Percent Auto 28.6 % (20-40); MANUAL DIFF FLAG SCAN; Mean Corpuscular HGB Conc 33.7 g/dl (31.0-36.0); Mean Corpuscular Hemoglobin 31.3 pg (27.0-33.0); Mean Corpuscular Volume 92.7 fL (80.0-98.0); Mean Platelet Volume 10.4 fL (9.4-12.4); Monocytes Absolute Auto 0.5 X10*3/uL (0.1-1.2); Monocytes Percent Auto 10.8 % (2-11); Neutrophils Absolute Auto 2.9 x10*3/uL (2.0-8.3); Neutrophils Percent Auto 58.6 % (45-73); PLT CLUMP 1; Red Blood Count 4.54 X10*6/uL (4.60-5.80); Red Cell Distribution Width 11.9 % (11.0-16.0); SCAN SMEAR FLAG 1
[2024-07-11 22:41] LABS: Platelet Count 101 X10*3/uL (160-400); SLIDE REVIEW VERIFIED
--- NOTE | 2024-07-11 23:02 | ED.GENADULT ---
HPI - General Adult General Chief complaint: General Medical Stated complaint: tachy per senior living. Hr 128 Time Seen by Provider: 07/11/24 22:49 Source: EMS and other Mode of arrival: EMS Limitations: other History of Present Illness ED Provider: Dr. Trinity Gamble HPI narrative: patient comes to the emergency room via ambulance from a senior living. According to the senior living staff, patient's heart rate was in the 120s, they got concerned and brought the patient to the emergency room. patient is unable to give significant history. Patient was recently treated for a UTI and his Mcghee catheter was changed today. Patient received his COVID booster yesterday Related Data Home Medications ?Medication ?Instructions ?Recorded ?Confirmed alpha lipoic acid 600 mg tablet 600 mg PO BID 08/29/22 06/08/24 fluticasone propionate 50 1 spray intranasal Q4H PRN 01/21/23 06/08/24 mcg/actuation nasal Congestion spray,suspension sodium phosphates 19 gram-7 118 ml WI DAILY PRN BM 08/30/23 06/08/24 gram/118 mL enema (Fleet Enema) epinephrine 0.3 mg/0.3 mL 0.3 mg IM Q15M PRN Anaphylaxis 02/27/24 06/08/24 injection, auto-injector gabapentin 100 mg capsule 200 mg PO TID 02/27/24 06/08/24 polyethylene glycol 3350 17 17 g feeding tube DAILY 02/27/24 06/08/24 gram/dose oral powder doxycycline hyclate 100 mg 100 mg IV Q12H 04/13/24 06/08/24 intravenous powder for solution ketoconazole 2 % topical cream 1 appl topical BID 04/13/24 06/08/24 triamcinolone acetonide 0.025 % 1 appl topical BID 04/13/24 06/08/24 topical cream Previous Rx's ?Medication ?Instructions ?Recorded bisacodyl 10 mg rectal suppository 10 mg WI DAILY PRN constipation 08/21/23 (Dulcolax (bisacodyl)) #12 ea acetaminophen 325 mg tablet 650 mg (2 x 325 mg) feeding tube 09/01/23 Q8H PRN Fever Or Pain #30 tabs amitriptyline 100 mg tablet 100 mg feeding tube BEDTIME #30 09/01/23 tabs ascorbic acid (vitamin C) 500 mg 500 mg feeding tube BID 90 days 09/01/23 tablet (Vitamin C) #180 tabs atorvastatin 10 mg tablet 10 mg feeding tube BEDTIME #30 tabs 09/01/23 baclofen 10 mg tablet 40 mg (4 x 10 mg) feeding tube TID 09/01/23 #30 tabs famotidine 20 mg tablet 20 mg feeding tube BID #30 tabs 09/01/23 loratadine 10 mg tablet 10 mg feeding tube DAILY #30 tabs 09/01/23 magnesium hydroxide 400 mg/5 mL 30 ml feeding tube DAILY PRN 09/01/23 oral suspension (Milk of Magnesia) Constipation #355 mL melatonin 5 mg tablet 5 mg feeding tube BEDTIME #30 tabs 09/01/23 methenamine hippurate 1 gram tablet 1 g feeding tube DAILY 90 days #90 09/01/23 tabs metoprolol tartrate 25 mg tablet 25 mg G-tube BID #60 tabs 09/01/23 phenytoin 50 mg chewable tablet 100 mg (2 x 50 mg) G-tube DAILY 09/01/23 #30 tabs sennosides 8.6 mg capsule (senna) 17.2 mg (2 x 8.6 mg) feeding tube 09/01/23 BID Constipation #30 caps doxycycline monohydrate 100 mg 100 mg feeding tube DAILY PRN 05/03/24 tablet CATHETER CHANGE #30 tabs sulfamethoxazole 800 1 tab PO BID 7 days #14 tabs 06/12/24 mg-trimethoprim 160 mg tablet (Bactrim DS) cefuroxime axetil 500 mg tablet 500 mg PO BID 7 days #14 tabs 07/01/24 sulfamethoxazole 800 1 tab feeding tube BID #14 tabs 07/11/24 mg-trimethoprim 160 mg tablet (Bactrim DS) Allergies Allergy/AdvReac Type Severity Reaction Status Date / Time bee pollen [BEE STINGS] Allergy Severe Anaphylaxis Verified 07/11/24 20:58 Review of Systems Review of Systems: Yes Unobtainable due to mental condition PMFSH Past Medical History Medical History Constipation History of substance abuse Former smoker GERD (gastroesophageal reflux disease) HTN (hypertension) GI bleed Hepatitis B Anemia Afib Failure to thrive in adult Seizures Neuromyopathy UTI (urinary tract infection) Suprapubic catheter Hepatitis C Multiple sclerosis Surgical History Hx of cystoscopy Social History Social History Household Members: Other Household Members Other:: Nursing Home Housing: Other Housing Other:: Nursing Home Do you presently have visiting nurse or other home services: Yes Unable to assess alcohol history related to: Unable to respond Alcohol intake: never Comment: senior living staff at bedside Patient Tobacco Use Status: Former Tobacco user Tobacco use type: Cigarette e-Cigarette/Vaping Use: Never Used Second Hand Smoke Exposure: No Advance Directives: Yes Advance Directives on File: Yes Advance Directives Date on File: 09/02/23 Do you have a plan to hurt others: No Plan service: No Current occupational status: disabled Physical Exam ED Vital Signs: Vital Signs - 24 hr 07/11/24 20:56 Temperature 99.4 F Pulse Rate 107 H Respiratory Rate 16 Blood Pressure 119/81 Pulse Oximetry 94 Oxygen Delivery Method Room Air BMI result Body Mass Index 26.9 Const Other: Appearance: Alert. somnolent but easily arousable Eyes: Pupils equal, round and reactive to light. ENT: Pharynx normal. Neck: Normal inspection. Neck supple. No lymph nodes noted. No crepitus CVS: Normal heart rate and rhythm. Pulses normal. Normal S1 and S2 Respiratory: No respiratory distress. Breath sounds normal. No Wheezing. No rales Abdomen: Soft and nontender. No rigidity. No distention. Skin: patient has seborrheic dermatitis Extremities: No lower extremity edema. No Lacerations. No Rash Neuro: unable to participate in cranial nerve assessment Psych: calm Medical Decision Making Medical Decision Making [facility] Narrative: my interpretation of labs: No significant abnormality in patient's hematology and chemistry, normal LFTs, normal troponin, serology negative for influenza RSV and COVID urinalysis is positive for UTI. Based on previous microbiology results, patient's urine is resistant to levofloxacin and Cephalosporins. Patient was given cefuroxime. Patient's urine is sensitive to gentamicin and Bactrim patient was given the 1st dose of Bactrim here in the emergency room Differential Diagnosis Differential Diagnoses: The differential diagnosis associated with the presentation includes ( medication side-effect, fever due to COVID immunization, UTI) Lab Data [facility] Lab Attestation statement: I reviewed the patient's lab results. 07/11/24 22:03 07/11/24 21:30 Labs: Lab Results 07/11/24 07/11/24 Range/Units 21:30 22:03 WBC 5.0 (4.8-10.8) X10*3/uL RBC 4.54 L (4.60-5.80) X10*6/uL Hgb 14.2 (14.0-18.0) g/dl Hct 42.1 (42.0-52.0) % MCV 92.7 (80.0-98.0) fL MCH 31.3 (27.0-33.0) pg MCHC 33.7 (31.0-36.0) g/dl RDW 11.9 (11.0-16.0) % Plt Count 101 L D (160-400) X10*3/uL MPV 10.4 (9.4-12.4) fL Immature Gran % (Auto) 0.4 (0.0-0.4) % Neut % (Auto) 58.6 (45-73) % Lymph % (Auto) 28.6 (20-40) % [facility] % (Auto) 10.8 (2-11) % Eos % (Auto) 1.0 (0-4) % Baso % (Auto) 0.6 (0-2) % Lymph # (Auto) 1.4 (1.2-4.9) X10*3/uL [facility] # (Auto) 0.5 (0.1-1.2) X10*3/uL Eos # (Auto) 0.1 (0.0-0.4) X10*3/uL Baso # (Auto) 0.0 (0.0-0.2) X10*3/uL Abs Immat Gran (auto) 0.02 (0.00-0.03) X10*3/uL Absolute Neuts (auto) 2.9 (2.0-8.3) x10*3/uL Absolute Nucleated RBC 0.000 (0.0-0.012) X10*3/uL Nucleated RBC % (auto) 0.0 (0.0-0.2) /100WBC Smear Tech's Comments VERIFIED Sodium 135 (135-145) mmol/L Potassium 4.4 (3.3-5.1) mmol/L Chloride 107 (96-108) mmol/L Carbon Dioxide 21 L (22-29) mmol/L Anion Gap 11 L (12-20) BUN 12 (9-16) mg/dL Creatinine 0.62 (0.5-1.4) mg/dL Estim Creat Clear Calc 160.2 Estimated GFR > 60 Random Glucose 243 H (60-115) mg/dL Calcium 8.8 (8.4-10.2) mg/dL Total Bilirubin 0.3 (0.0-1.0) mg/dL AST 24 (5-37) U/L ALT 28 (0-40) U/L Alkaline Phosphatase 115 (39-117) U/L Troponin I High Sens < 2.7 (<3.5-35.0) ng/L Total Protein 6.6 (6.5-8.0) g/dL Albumin 3.5 (3.5-5.0) g/dL Lipase 16 (8-78) U/L Discharge Plan Discharge Clinical Impression: Acute UTI Patient Disposition: Home, Self-Care Instructions: Urinary Tract Infection in Men (DC) Additional Instructions: Please follow-up with your primary care physician tomorrow. If you have any worsening or new symptoms, please return to the emergency room or call 911 Prescriptions: New sulfamethoxazole-trimethoprim [Bactrim DS] 800-160 mg tablet 1 tab feeding tube BID Qty: 14 0RF No Action doxycycline monohydrate 100 mg tablet 100 mg feeding tube DAILY PRN (Reason: CATHETER CHANGE) Qty: 30 6RF Rx Instructions: 200 mg PO On day of catheter change; 1 tab before cath change and 1 tab after cath change; sulfamethoxazole-trimethoprim [Bactrim DS] 800-160 mg tablet 1 tab PO BID 7 Days Qty: 14 0RF cefuroxime axetil 500 mg tablet 500 mg PO BID 7 Days Qty: 14 0RF alpha lipoic acid 600 mg Tablet 600 mg PO BID fluticasone propionate 50 mcg/actuation [place],Suspension 1 spray INTRANASAL Q4H PRN (Reason: Congestion) Rx Instructions: administer into each nostril bisacodyl [Dulcolax (bisacodyl)] 10 mg suppository 10 mg WI DAILY PRN (Reason: constipation) Qty: 12 0RF Rx Instructions: If no BM in 3 days. gabapentin 100 mg capsule 200 mg PO TID epinephrine 0.3 mg/0.3 mL Auto-Injector 0.3 mg IM Q15M PRN (Reason: Anaphylaxis) Rx Instructions: for 2 doses polyethylene glycol 3350 17 gram/dose powder 17 g feeding tube DAILY Fleet Enema 19-7 gram/118 mL Enema 118 ml WI DAILY PRN (Reason: BM) Rx Instructions: If no BM in 3 days acetaminophen 325 mg Tablet 650 mg feeding tube Q8H PRN (Reason: Fever Or Pain) Qty: 30 0RF atorvastatin 10 mg tablet 10 mg feeding tube BEDTIME Qty: 30 0RF methenamine hippurate 1 gram tablet 1 g feeding tube DAILY 90 Days Qty: 90 3RF famotidine 20 mg Tablet 20 mg feeding tube BID Qty: 30 0RF magnesium hydroxide [Milk of Magnesia] 400 mg/5 mL Suspension 30 ml feeding tube DAILY PRN (Reason: Constipation) Qty: 355 0RF ascorbic acid (vitamin C) [Vitamin C] 500 mg tablet 500 mg feeding tube BID 90 Days Qty: 180 1RF baclofen 10 mg tablet 40 mg feeding tube TID Qty: 30 0RF amitriptyline 100 mg Tablet 100 mg feeding tube BEDTIME Qty: 30 0RF loratadine 10 mg tablet 10 mg feeding tube DAILY Qty: 30 0RF senna 8.6 mg Capsule 17.2 mg feeding tube BID Qty: 30 0RF melatonin 5 mg tablet 5 mg feeding tube BEDTIME Qty: 30 0RF metoprolol tartrate 25 mg Tablet 25 mg G-tube BID Qty: 60 0RF Protocol: Hold for SBP/HR < HOLD for SBP < : 90 HOLD for HR < : 60 phenytoin 50 mg tablet,chewable 100 mg G-tube DAILY Qty: 30 0RF ketoconazole 2 % cream 1 appl topical BID triamcinolone acetonide 0.025 % cream 1 appl topical BID doxycycline hyclate 100 mg recon soln 100 mg IV Q12H Print Language: Nauruan
[2024-07-11 23:04] VITALS: BP 105/68; PULSE 91; RESP 15; O2SAT 95
--- NOTE | 2024-07-11 23:08 | MHC.EDTECH ---
this tech assumed care @2420
[2024-07-11 23:11] LABS: Appearance Urine Clear; Color Urine Yellow; Glucose Urine UA Negative (Negative); Leukocyte Esterase Urine Large (3+) (Negative); Nitrite Urine Negative (Negative); PH 6.5 (5.0-9.0); UMIC TRIGGER UACC YES; Urine Blood Trace (Negative); Urine Ketones Negative (Negative); Urine Protein Negative (Neg-Trace)
[2024-07-11 23:16] LABS: Bacteria Urine 4+ (None Seen); Hyaline Casts Urine 0-2 /LPF (0-2); Squamous Epithelial Cell Urine 0-2 /HPF (0-2); UACC Culture Trigger YES; WBC Urine 21-50 /HPF (0-5)
[2024-07-12] MEDS: Sulfamethox/Trimeth 800/160 TABLET 1 TAB PO (00:02)
[2024-07-12 00:22] VITALS: BP 105/68; PULSE 91; RESP 15; TEMP 37.4; O2SAT 95
--- NOTE | 2024-07-12 00:23 | PC.NURSE ---
d/c instructions provided with care home staff worker
== END 2024-07-12 00:23 | disposition home or self-care (01) ==
PROVIDERS: Emergency Provider Emergency Medicine; PCP Student in an Organized Health Care Education/Training Program
DX: N39.0 Urinary tract infection, site not specified (principal); I10 Essential (primary) hypertension; I48.91 Unspecified atrial fibrillation; G35 Multiple sclerosis; Z03.818 Encounter for observation for suspected exposure to other biological agents ruled out; Z79.899 Other long term (current) drug therapy
CPT/HCPCS: 36415; 80053; 81001; 83690; 84484; 85025; 87086; 93005; 99283; 99284

== ENCOUNTER → 2024-07-11 21:04 | Outpatient (BNV) | payer OTHER, SELFPAY | PROVIDERS: Emergency Provider Emergency Medicine; PCP Student in an Organized Health Care Education/Training Program; Visit Provider Internal Medicine Cardiovascular Disease | DX: R00.0 Tachycardia, unspecified (principal) | CPT/HCPCS: 93010 ==

== ENCOUNTER 2024-08-10 15:55 | Outpatient (REF) | payer OTHER, SELFPAY ==
--- OUTSIDE RECORDS SUMMARY | 2024-08-10 15:57 | XMS_ITS | Encounter Summary ---
Author Organization [facility] Address [address] [place] [address] Care Team Providers Care Cancer Registry Coordinator Name Role Phone Tay Spencerdebbie Primary Care Provider [phone] Reason for Visit * Reason Onset Date Comments Fax Referral 07/29/2020 Encounter Details Date Type Department Care Team (Late st Contact Info) Description 07/29/2020 Telephone [facility] Central Scheduling Department [address] [place] [phone] Telephone Intake, Staff Fax Referral Social History [...] She states that she has power of research attorney. Noe will be coming to the initial visit with someone from his alf, but she is unable to attend the first visit. She will have the alf bring 1. Copy of power of research attorney, 2. MRI results report from [facility] 2017. 3. Medication list, 4. Most recent PCP note. (she does not know PCP's name at the moment.) I have sent her the [employer] link, so that she can also send us records thru [employer]. His mother adds that he is a poor historian. * Telephone Encounter - Nickolas Sam - 07/29/2020 1:16 PM EDT [facility] has medical records of pt Pt's mother said the most recent MRI was in September 2016. To obtain this, mother said she was having difficult time. [facility] wants [facility] to fax them a request and they will send records. [facility] fax number: [phone] documented in this encounter Plan of Treatment Not on file documented as of this encounter Visit Diagnoses Not on filedocumented in this encounter Care Teams Cancer Registry Coordinator Relationship Specialty Start Date End Date Emma Cross [address] [place] [address] PCP - General Internal Medicine 08/01/20 documented as of this encounter
[2024-08-10 16:10] LABS: Appearance Urine Clear; Color Urine Yellow; Glucose Urine UA Negative (Negative); Leukocyte Esterase Urine Moderate (2+) (Negative); Nitrite Urine Negative (Negative); Specific Gravity - Urine 1.015 (1.005-1.025); UMIC TRIGGER UA YES; Urine Blood Small (1+) (Negative); Urine Ketones Negative (Negative); Urine Protein Negative (Neg-Trace)
[2024-08-10 16:16] LABS: Bacteria Urine None Seen (None Seen); Hyaline Casts Urine 0-2 /LPF (0-2); Squamous Epithelial Cell Urine 0-2 /HPF (0-2)
== END 2024-08-10 15:56 | disposition home or self-care (01) ==
LOC: HO.LNP 15:55
PROVIDERS: Visit Provider Urology
DX: N39.0 Urinary tract infection, site not specified (principal)
CPT/HCPCS: 81001; 87086

== ENCOUNTER 2024-08-26 09:53 | Emergency (ER) | payer OTHER, SELFPAY ==
[2024-08-26] VITALS (7 sets, daily range): BP systolic 106–120; BP diastolic 70–81; PULSE 92–100; RESP 18–20; TEMP 36.9; O2SAT 89–100; BMI 24.4
--- NOTE | ~2024-08-26 | XR_ITS ---
CLINICAL HISTORY: cough Exam: AP portable chest x-ray. Comparison: None. Findings: Mild hypoinflation. Cardiac silhouette is at the upper limits of normal for size. Streaky perihilar and basilar densities bilaterally. No pleural effusion or pneumothorax. Impression: Findings most characteristic of bronchitis /bronchiolitis. This document has been electronically signed by: Mark Frye MD on 08/26/2024 11:22:40
--- NOTE | ~2024-08-26 | CT_ITS ---
CLINICAL HISTORY: hypoxia, hx of afib not AC CT angiography chest with contrast. 3D Postprocessing. Comparison: None Findings: The heart size is normal. RV/LV ratio is normal. Thoracic aorta is normal caliber and there is no thoracic aortic aneurysm. The pulmonary arteries are suboptimally opacified, measuring 103 Hounsfield units. No large saddle pulmonary embolus, however evaluation for other peripheral pulmonary emboli is unable to be performed secondary to bolus timing and motion artifact. The visualized thyroid and mediastinum are unremarkable. Bibasilar atelectasis. There are multiple low-attenuation lesions within the liver, likely cysts. The bones are intact. IMPRESSION: 1. Nondiagnostic study for pulmonary emboli, with the exception of no large saddle embolus, otherwise pulmonary arteries are not adequately opacified. 2. Bibasilar atelectasis. 3. Normal thoracic aorta. This document has been electronically signed by: Miguel Davidson MD on 08/26/2024 15:14:32
--- NOTE | 2024-08-26 09:53 | ED_ITS ---
HPI - General Adult General Chief complaint: Urogenital-Male Stated complaint: from long term, judge issues ? UTI Time Seen by Provider: 08/26/24 09:53 Source: EMS Mode of arrival: EMS History of Present Illness ED Provider: Neda Fournier PA-C HPI narrative: 43-year-old male accompanied by long term staff with history of GERD, HTN, anemia, AFib not on AC, hepatitis-C, multiple sclerosis presents to the ED today from his long term by EMS due to urinary issues. Patient is nonverbal at baseline information was obtained by EMS. EMS states patient was seen by VNA this morning who had difficulty removing his suprapubic indwelling catheter, with question of UTI due to urine being malodorous and cloudy in urine bag. prison staff states patient has been experiencing 2 days of chest congestion with cough. Can not ask patient if he is experiencing any other symptoms due to nonverbal baseline. MD complaint: ?UTI, chest congestion, cough Related Data Home Medications ?Medication ?Instructions ?Recorded ?Confirmed alpha lipoic acid 600 mg tablet 600 mg PO BID 08/29/22 06/08/24 fluticasone propionate 50 1 spray intranasal Q4H PRN 01/21/23 06/08/24 mcg/actuation nasal Congestion spray,suspension sodium phosphates 19 gram-7 118 ml CA DAILY PRN BM 08/30/23 06/08/24 gram/118 mL enema (Fleet Enema) epinephrine 0.3 mg/0.3 mL 0.3 mg IM Q15M PRN Anaphylaxis 02/27/24 06/08/24 injection, auto-injector gabapentin 100 mg capsule 200 mg PO TID 02/27/24 06/08/24 polyethylene glycol 3350 17 17 g feeding tube DAILY 02/27/24 06/08/24 gram/dose oral powder doxycycline hyclate 100 mg 100 mg IV Q12H 04/13/24 06/08/24 intravenous powder for solution ketoconazole 2 % topical cream 1 appl topical BID 04/13/24 06/08/24 triamcinolone acetonide 0.025 % 1 appl topical BID 04/13/24 06/08/24 topical cream Previous Rx's ?Medication ?Instructions ?Recorded bisacodyl 10 mg rectal suppository 10 mg CA DAILY PRN constipation 08/21/23 (Dulcolax (bisacodyl)) #12 ea acetaminophen 325 mg tablet 650 mg (2 x 325 mg) feeding tube 09/01/23 Q8H PRN Fever Or Pain #30 tabs amitriptyline 100 mg tablet 100 mg feeding tube BEDTIME #30 09/01/23 tabs atorvastatin 10 mg tablet 10 mg feeding tube BEDTIME #30 tabs 09/01/23 baclofen 10 mg tablet 40 mg (4 x 10 mg) feeding tube TID 09/01/23 #30 tabs famotidine 20 mg tablet 20 mg feeding tube BID #30 tabs 09/01/23 loratadine 10 mg tablet 10 mg feeding tube DAILY #30 tabs 09/01/23 magnesium hydroxide 400 mg/5 mL 30 ml feeding tube DAILY PRN 09/01/23 oral suspension (Milk of Magnesia) Constipation #355 mL melatonin 5 mg tablet 5 mg feeding tube BEDTIME #30 tabs 09/01/23 metoprolol tartrate 25 mg tablet 25 mg G-tube BID #60 tabs 09/01/23 phenytoin 50 mg chewable tablet 100 mg (2 x 50 mg) G-tube DAILY 09/01/23 #30 tabs sennosides 8.6 mg capsule (senna) 17.2 mg (2 x 8.6 mg) feeding tube 09/01/23 BID Constipation #30 caps doxycycline monohydrate 100 mg 100 mg feeding tube DAILY PRN 05/03/24 tablet CATHETER CHANGE #30 tabs sulfamethoxazole 800 1 tab PO BID 7 days #14 tabs 06/12/24 mg-trimethoprim 160 mg tablet (Bactrim DS) cefuroxime axetil 500 mg tablet 500 mg PO BID 7 days #14 tabs 07/01/24 sulfamethoxazole 800 1 tab feeding tube BID #14 tabs 07/11/24 mg-trimethoprim 160 mg tablet (Bactrim DS) methenamine hippurate 1 gram tablet 1 g feeding tube DAILY 90 days #90 07/27/24 tabs ascorbic acid (vitamin C) 500 mg 500 mg feeding tube BID 90 days 08/03/24 tablet (Vitamin C) #180 tabs Allergies Allergy/AdvReac Type Severity Reaction Status Date / Time bee pollen [BEE STINGS] Allergy Severe Anaphylaxis Verified 08/26/24 10:22 Review of Systems 2 Review of Systems: Unable to assess ROS due to patient being nonverbal at baseline. Patient makes intermittent eye contact but unsure if he is understanding questions. [facility] Past Medical History Attestation statement: The following information was validated with the patient. Source: old records reviewed and nursing notes reviewed Medical History Constipation History of substance abuse Former smoker GERD (gastroesophageal reflux disease) HTN (hypertension) GI bleed Hepatitis B Anemia Afib Failure to thrive in adult Seizures Neuromyopathy UTI (urinary tract infection) Suprapubic catheter Hepatitis C Multiple sclerosis Surgical History Hx of cystoscopy Social History Social History Household Members: Other Household Members Other:: Longterm Housing: Other Housing Other:: Longterm Do you presently have visiting nurse or other home services: Yes Unable to assess alcohol history related to: Unable to respond Alcohol intake: never Comment: long term staff at bedside Patient Tobacco Use Status: Former Tobacco user Tobacco use type: Cigarette e-Cigarette/Vaping Use: Never Used Second Hand Smoke Exposure: No Use of substances other than those prescribed or required for medical reasons: Unable to respond Advance Directives: Yes Advance Directives on File: Yes Advance Directives Date on File: 09/02/23 Do you have a plan to hurt others: No Plan service: No Current occupational status: disabled Physical Exam ED Vital Signs: Vital Signs - 24 hr 08/26/24 10:03 08/26/24 10:06 08/26/24 10:20 Temperature 98.5 F 98.5 F Pulse Rate 92 98 Respiratory Rate 20 20 Blood Pressure 106/73 106/73 Pulse Oximetry 89 L 95 94 Oxygen Delivery Method Room Air Nasal Cannula Nasal Cannula Oxygen Flow Rate 2 08/26/24 12:58 Temperature Pulse Rate 94 Respiratory Rate Blood Pressure Pulse Oximetry 100 Oxygen Delivery Method Room Air Oxygen Flow Rate 2 BMI result Body Mass Index 24.4 GENERAL APPEARANCE: ?AxOx0, chonically ill appearing, non-verbal at [facility], makes intermittent eye contact, but I am unsure of his comprehension, no acute distress. HEENT: ?[place], AT. MMM. EOMI, clear conjunctiva. NECK: ?Supple without lymphadenopathy.? No stiffness or restricted ROM. HEART:? Normal rate and regular rhythm, normal S1/S1, no m/r/g LUNGS: unable to clearly assess lung sounds due to patient not being able to follow directions to take deep inspiratory breath for evaluation. Patient hypoxic 89% on RA. Placed on 2L O2 now 94%. ABDOMEN: ?Soft, nontender, nondistended with good bowel sounds heard. Suprapubic catheter in place, and draining, no overlying skin changes. EXTREMITIES: ?Without cyanosis, clubbing or edema. NEUROLOGICAL: ?Grossly nonfocal. Patient non verbal, cannot follow directions. uses wheelchair for ambulation. Skin: ?Warm and dry without any rash. Medications Administered Discontinued Medications Generic Name Dose Route Start Last Admin Trade Name Freq PRN Reason Stop Dose Admin Cefepime HCl 2 gm in 50 mls @ 100 mls/hr 08/26/24 10:25 08/26/24 12:19 Maxipime IV 08/26/24 10:54 Infused ONCE ONE Infusion Lactated Ringer's 1,000 mls @ 999 mls/hr 08/26/24 10:25 08/26/24 13:30 Lr IV 08/26/24 11:25 Infused .Q1H1M ONE Infusion Iohexol 65 ml 08/26/24 14:04 08/26/24 14:05 Iohexol 350 Mg/Ml 100 Ml Infus..Btl IV 08/26/24 14:05 65 ml ONCE ONE Administration Medical Decision Making Medical Decision Making MDM Narrative: 43-year-old male accompanied by long term staff with history of GERD, HTN, anemia, AFib not on AC, hepatitis-C, multiple sclerosis presents to the ED today from his long term by EMS due to urinary issues. Patient is nonverbal at baseline information was obtained by EMS. EMS states patient was seen by VNA this morning who had difficulty removing his suprapubic indwelling catheter, with question of UTI due to urine being malodorous and cloudy in urine bag. prison staff states patient has been experiencing 2 days of chest congestion with cough. Patient O2 sat 89% on room air placed on 2 L O2 nasal cannula is now at 94%, VS otherwise stable. Physical exam benign, patient nonverbal is unable to state other symptoms/concerns he is experiencing. Attempted to auscultate lungs bilaterally, patient unable to follow directions to take deep inspiratory breaths for proper evaluation. Cardiac exam shows normal rate and rhythm, without murmurs rubs or gallops. Will obtain EKG, chest XR, labs, viral serology. Will prophylactically begin 2 g IV cefepime to cover for possible aspiration pneumonia and IV fluids. Course 15:58- Patient lab work without leukocytosis, unremarkable. CXR revealed bronchitis which has been treated in the department with 2 g IV cefepime. No pneumonia or other cardiopulmonary issues observed. UA reveals leukocyte esterases and nitrites, patient most likely colonized. Will await culture results before beginning treatment. Viral serology negative. CTA chest PE protocol does not reveal any large saddle embolus, or occult pneumonia. Can not rule out small PE. Transient hypoxia resolved at this time with patient at 98% on room air. Do not suspect DVT. Findings were discussed with his long term staff worker who is here at the bedside. They are in agreement with the plan. Counseled on following up with PCP to ensure improvement. Differential Diagnosis Differential Diagnoses: The differential diagnosis associated with the presentation includes Pneumonia Aspiration pneumonia Viral illness Electrolyte abnormality UTI Admission/Observation Consideration of admission/observation: Escalation of care including admission/observation considered Lab Data MDM Lab Attestation statement: I reviewed the patient's lab results. 08/26/24 11:17 08/26/24 11:17 Labs: Lab Results 08/26/24 08/26/24 Range/Units 11:17 11:28 WBC 6.2 (4.8-10.8) X10*3/uL RBC 4.44 L (4.60-5.80) X10*6/uL Hgb 13.9 L (14.0-18.0) g/dl Hct 42.0 (42.0-52.0) % MCV 94.6 (80.0-98.0) fL MCH 31.3 (27.0-33.0) pg MCHC 33.1 (31.0-36.0) g/dl RDW 11.9 (11.0-16.0) % Plt Count 190 D (160-400) X10*3/uL MPV 10.0 (9.4-12.4) fL Immature Gran % (Auto) 0.2 (0.0-0.4) % Neut % (Auto) 52.2 (45-73) % Lymph % (Auto) 31.5 (20-40) % [place] % (Auto) 13.2 H (2-11) % Eos % (Auto) 2.4 (0-4) % Baso % (Auto) 0.5 (0-2) % Lymph # (Auto) 2.0 (1.2-4.9) X10*3/uL [place] # (Auto) 0.8 (0.1-1.2) X10*3/uL Eos # (Auto) 0.2 (0.0-0.4) X10*3/uL Baso # (Auto) 0.0 (0.0-0.2) X10*3/uL Abs Immat Gran (auto) 0.01 (0.00-0.03) X10*3/uL Absolute Neuts (auto) 3.3 (2.0-8.3) x10*3/uL Absolute Nucleated RBC 0.000 (0.0-0.012) X10*3/uL Nucleated RBC % (auto) 0.0 (0.0-0.2) /100WBC Sodium 140 (135-145) mmol/L Potassium 4.4 (3.3-5.1) mmol/L Chloride 105 (96-108) mmol/L Carbon Dioxide 27 (22-29) mmol/L Anion Gap 12 (12-20) BUN 21 H (9-16) mg/dL Creatinine 0.68 (0.5-1.4) mg/dL Estim Creat Clear Calc 150.5 Estimated GFR > 60 Random Glucose 77 (60-115) mg/dL Lactic Acid 1.0 (0.5-2.0) mmol/L Calcium 9.3 (8.4-10.2) mg/dL Magnesium 2.1 (1.6-2.6) mg/dL Total Bilirubin 0.5 (0.0-1.0) mg/dL AST 23 (5-37) U/L ALT 24 (0-40) U/L Alkaline Phosphatase 97 (39-117) U/L Total Protein 7.1 (6.5-8.0) g/dL Albumin 3.9 (3.5-5.0) g/dL Urine Color Yellow Urine Appearance Cloudy Urine pH 7.5 (5.0-9.0) Ur Specific [place] 1.010 (1.005-1.025) Urine Protein Trace (Neg-Trace) mg/dL Urine Glucose (UA) Negative (Negative) mg/dL Urine Ketones Trace (Negative) mg/dL Urine Blood Trace (Negative) Urine Nitrite Positive H (Negative) Ur Leukocyte Esterase Large (3+) H (Negative) Urine RBC 0-2 (0-2) /HPF Urine WBC 0-5 (0-5) /HPF Ur Squamous Epith Cells 0-2 (0-2) /HPF Urine Bacteria 3+ (None Seen) Hyaline Casts 0-2 (0-2) /LPF Influenza Type A (PCR) NEGATIVE (Negative) Influenza Type B (PCR) NEGATIVE (Negative) RSV RNA Qual (PCR) NEGATIVE (Negative) SARS-CoV-2 RNA (RT-PCR) NEGATIVE (Negative) Independent Interpretation I performed an independent interpretation of an: EKG and Plain X-Ray Interpretation: I independently interpreted the EKG Vent. Rate : 92 BPM Atrial Rate : 92 BPM P-R Int : 158 ms QRS Dur : 100 ms QT Int : 350 ms P-R-T Axes : 34 36 28 degrees QTcB Int : 432 ms Normal sinus rhythm Normal ECG When compared with ECG of 11-Jul-2024 21:04, No significant change was found Radiology Impression Discussion of test interpretation with radiology: I have reviewed the radiologist's reading. Radiologist Impression: CXR CLINICAL HISTORY: cough Exam: AP portable chest x-ray. Comparison: None. Findings: Mild hypoinflation. Cardiac silhouette is at the upper limits of normal for size. Streaky perihilar and basilar densities bilaterally. No pleural effusion or pneumothorax. Impression: Findings most characteristic of bronchitis /bronchiolitis. This document has been electronically signed by: Mark Frye MD on 08/26/2024 11:22:40 Dictated By: Mark Frye MD Signed By: <Electronically signed by Mark Frye MD in OV> Chest CTA Findings: The heart size is normal. RV/LV ratio is normal. Thoracic aorta is normal caliber and there is no thoracic aortic aneurysm. The pulmonary arteries are suboptimally opacified, measuring 103 Hounsfield units. No large saddle pulmonary embolus, however evaluation for other peripheral pulmonary emboli is unable to be performed secondary to bolus timing and motion artifact. The visualized thyroid and mediastinum are unremarkable. Bibasilar atelectasis. There are multiple low-attenuation lesions within the liver, likely cysts. The bones are intact. IMPRESSION: 1. Nondiagnostic study for pulmonary emboli, with the exception of no large saddle embolus, otherwise pulmonary arteries are not adequately opacified. 2. Bibasilar atelectasis. 3. Normal thoracic aorta. This document has been electronically signed by: Miguel Davidson MD on 08/26/2024 15:14:32 Dictated By: Miguel Davidson MD Signed By: <Electronically signed by Miguel Davidson MD in OV> 08/26/24 1515 Independent Historian Clinical information obtained from an independent historian. History obtained from or confirmed by: EMS and Other (prison staff) External Record Review External record reviewed: Inpatient record, Office record and Outpatient record Chronic Conditions Patient?s care impacted by: Other (Multiple sclerosis, patient nonverbal) Discharge Plan Discharge Clinical Impression: Chronic suprapubic catheter, Bronchitis Patient Disposition: Home, Self-Care Instructions: Acute Bronchitis (ED) Additional Instructions: You were evaluated in the ED today due to concerns of the suprapubic catheter and 2 days of cough. Your lab work was unremarkable. Your urine culture showed contamination of white blood cells and bacteria. However you were most likely colonized with bacteria due to your suprapubic catheter. It is best to wait for culture of the urine to determine what bacteria is in the specimen to allow for targeted treatment, and prevent antibiotic resistance. You will be called with results of your culture. Your chest x-ray showed evidence of bronchitis, without pneumonia. Your bronchitis is most likely due to a viral illness, does not need to be treated with home antibiotics at this time due to 2 days of symptoms. You were CT angiogram of your chest did not reveal any large pulmonary embolism. However, this test was unable to definitively rule out a small pulmonary embolism. You were hypoxic in the department and placed on 2 L of oxygen. However, after oxygenating and stopping the oxygen, your oxygen levels stayed above 96% suggesting transient hypoxia, further supporting that you do not have a pulmonary embolism. Please follow up with PCP to ensure improvement Please return to the emergency department if you experience fever over 100.4?, worsening cough, difficulty breathing, chest pain, nausea, vomiting or any other concerning/worsening/new symptoms. Prescriptions: No Action doxycycline monohydrate 100 mg tablet 100 mg feeding tube DAILY PRN (Reason: CATHETER CHANGE) Qty: 30 6RF Rx Instructions: 200 mg PO On day of catheter change; 1 tab before cath change and 1 tab after cath change; sulfamethoxazole-trimethoprim [Bactrim DS] 800-160 mg tablet 1 tab PO BID 7 Days Qty: 14 0RF cefuroxime axetil 500 mg tablet 500 mg PO BID 7 Days Qty: 14 0RF methenamine hippurate 1 gram tablet 1 g feeding tube DAILY 90 Days Qty: 90 3RF ascorbic acid (vitamin C) [Vitamin C] 500 mg tablet 500 mg feeding tube BID 90 Days Qty: 180 1RF alpha lipoic acid 600 mg Tablet 600 mg PO BID fluticasone propionate 50 mcg/actuation [place],Suspension 1 spray INTRANASAL Q4H PRN (Reason: Congestion) Rx Instructions: administer into each nostril bisacodyl [Dulcolax (bisacodyl)] 10 mg suppository 10 mg CA DAILY PRN (Reason: constipation) Qty: 12 0RF Rx Instructions: If no BM in 3 days. gabapentin 100 mg capsule 200 mg PO TID epinephrine 0.3 mg/0.3 mL Auto-Injector 0.3 mg IM Q15M PRN (Reason: Anaphylaxis) Rx Instructions: for 2 doses polyethylene glycol 3350 17 gram/dose powder 17 g feeding tube DAILY Fleet Enema 19-7 gram/118 mL Enema 118 ml CA DAILY PRN (Reason: BM) Rx Instructions: If no BM in 3 days acetaminophen 325 mg Tablet 650 mg feeding tube Q8H PRN (Reason: Fever Or Pain) Qty: 30 0RF atorvastatin 10 mg tablet 10 mg feeding tube BEDTIME Qty: 30 0RF famotidine 20 mg Tablet 20 mg feeding tube BID Qty: 30 0RF magnesium hydroxide [Milk of Magnesia] 400 mg/5 mL Suspension 30 ml feeding tube DAILY PRN (Reason: Constipation) Qty: 355 0RF baclofen 10 mg tablet 40 mg feeding tube TID Qty: 30 0RF amitriptyline 100 mg Tablet 100 mg feeding tube BEDTIME Qty: 30 0RF loratadine 10 mg tablet 10 mg feeding tube DAILY Qty: 30 0RF senna 8.6 mg Capsule 17.2 mg feeding tube BID Qty: 30 0RF melatonin 5 mg tablet 5 mg feeding tube BEDTIME Qty: 30 0RF metoprolol tartrate 25 mg Tablet 25 mg G-tube BID Qty: 60 0RF Protocol: Hold for SBP/HR < HOLD for SBP < : 90 HOLD for HR < : 60 phenytoin 50 mg tablet,chewable 100 mg G-tube DAILY Qty: 30 0RF sulfamethoxazole-trimethoprim [Bactrim DS] 800-160 mg tablet 1 tab feeding tube BID Qty: 14 0RF ketoconazole 2 % cream 1 appl topical BID triamcinolone acetonide 0.025 % cream 1 appl topical BID doxycycline hyclate 100 mg recon soln 100 mg IV Q12H Print Language: Irish
--- OUTSIDE RECORDS SUMMARY | 2024-08-26 10:21 | XMS_ITS | Encounter Summary ---
Author Organization [facility] Address [address] [place] [address] Care Team Providers Care Manager Nursing Name Role Phone TayArvindbelladebbie Primary Care Provider [phone] Reason for Visit * Reason Onset Date Comments Fax Referral 07/29/2020 Encounter Details Date Type Department Care Team (Late st Contact Info) Description 07/29/2020 Telephone [facility] Central Scheduling Department [address] [place] [id number] Telephone Intake, Staff Fax Referral Social History Tobacco Use Types Packs/Day Years Used Date Smoking Tobacco: Never Assessed Sex and Gender Information Value Date Recorded Sex Assigned at Not on file Legal Sex Male 1:01 PM EDT Gender Identity Not on file Sexual Orientation Not on file documented as of this encounter Miscellaneous Notes * Telephone Encounter - Amira Lnicoln - 07/31/2020 11:41 AM EDT I spoke to Reyna, his mother. She states that she has power of divorce attorney. Noe will be coming to the initial visit with someone from his prison, but she is unable to attend the first visit. She will have the prison bring 1. Copy of power of divorce attorney, 2. MRI results report from [facility] 2017. 3. Medication list, 4. Most recent PCP note. (she does not know PCP's name at the moment.) I have sent her the [email or web address] link, so that she can also send us records thru [email or web address]. His mother adds that he is a poor historian. * Telephone Encounter - Nickolas Sam - 07/29/2020 1:16 PM EDT [facility] has medical records of pt Pt's mother said the most recent MRI was in September 2016. To obtain this, mother said she was having difficult time. [facility] wants [facility] to fax them a request and they will send records. [facility] fax number: [phone] documented in this encounter Plan of Treatment Not on file documented as of this encounter Visit Diagnoses Not on filedocumented in this encounter Care Teams Manager Nursing Relationship Specialty Start Date End Date Emma Cross [address] [place] [address] PCP - General Internal Medicine 08/01/20 documented as of this encounter
--- NOTE | 2024-08-26 10:35 | ECG_ITS ---
Test Reason : SOB Blood Pressure : */* mmHG Vent. Rate : 92 BPM Atrial Rate : 92 BPM P-R Int : 158 ms QRS Dur : 100 ms QT Int : 350 ms P-R-T Axes : 34 36 28 degrees QTcB Int : 432 ms Normal sinus rhythm Normal ECG When compared with ECG of 11-Jul-2024 21:04, No significant change was found Referred By: Irlanda Red Electronically Signed By: LISA HAGAN MD
[2024-08-26 11:22] LABS: MANUAL DIFF FLAG NO
[2024-08-26 11:24] LABS: Basophils Percent Auto 0.5 % (0-2); Eosinophils Absolute Auto 0.2 X10*3/uL (0.0-0.4); Eosinophils Percent Auto 2.4 % (0-4); Hemoglobin 13.9 g/dl (14.0-18.0); Imm Gran Abs Auto 0.01 X10*3/uL (0.00-0.03); Imm Gran Pct Auto 0.2 % (0.0-0.4); Lymphocytes Percent Auto 31.5 % (20-40); Mean Corpuscular HGB Conc 33.1 g/dl (31.0-36.0); Mean Corpuscular Hemoglobin 31.3 pg (27.0-33.0); Mean Corpuscular Volume 94.6 fL (80.0-98.0); Monocytes Absolute Auto 0.8 X10*3/uL (0.1-1.2); Monocytes Percent Auto 13.2 % (2-11); Neutrophils Absolute Auto 3.3 x10*3/uL (2.0-8.3); Neutrophils Percent Auto 52.2 % (45-73); Platelet Count 190 X10*3/uL (160-400); Red Blood Count 4.44 X10*6/uL (4.60-5.80); Red Cell Distribution Width 11.9 % (11.0-16.0); White Blood Count 6.2 X10*3/uL (4.8-10.8)
[2024-08-26 11:36] LABS: Appearance Urine Cloudy; Color Urine Yellow; Glucose Urine UA Negative (Negative); Leukocyte Esterase Urine Large (3+) (Negative); Nitrite Urine Positive (Negative); PH 7.5 (5.0-9.0); UMIC TRIGGER UACC YES; Urine Blood Trace (Negative); Urine Ketones Trace mg/dL (Negative); Urine Protein Trace mg/dL (Neg-Trace)
[2024-08-26 11:42] LABS: Alanine Aminotransferase 24 U/L (0-40); Albumin Level 3.9 g/dL (3.5-5.0); Alkaline Phosphatase 97 U/L (39-117); Anion Gap 12 (12-20); Aspartate Amino Transferase 23 U/L (5-37); Bilirubin Total 0.5 mg/dL (0.0-1.0); Blood Urea Nitrogen 21 mg/dL (9-16); Calcium 9.3 mg/dL (8.4-10.2); Carbon Dioxide 27 mmol/L (22-29); Chloride 105 mmol/L (96-108); Creatinine Clr Calc Pharmacy 150.5; Estimated Glomerular Filt Rate > 60; Glucose Random 77 mg/dL (60-115); Magnesium 2.1 mg/dL (1.6-2.6); Potassium 4.4 mmol/L (3.3-5.1); Sodium 140 mmol/L (135-145); Total Protein 7.1 g/dL (6.5-8.0)
[2024-08-26 11:45] LABS: Bacteria Urine 3+ (None Seen); Hyaline Casts Urine 0-2 /LPF (0-2); RBC Urine 0-2 /HPF (0-2); Squamous Epithelial Cell Urine 0-2 /HPF (0-2); UACC Culture Trigger YES; WBC Urine 0-5 /HPF (0-5)
[2024-08-26] MEDS: cefEPime HCl/D5W 2 GM/50 ML PIGGYBACK IV (11:53)
[2024-08-26 12:12] LABS: Influenza A PCR NEGATIVE (Negative); Influenza B PCR NEGATIVE (Negative); Resp Syncy Virus RNA Qual PCR NEGATIVE (Negative); SARS COV2 PCR INHOUSE NEGATIVE (Negative)
[2024-08-26] MEDS: Lactated Ringers 1,000 ML 999 ML IV (12:20)
[2024-08-26] MEDS: iohexoL 350 MG/ML 100 ML INFUS..BTL 65 ML IV (14:05)
== END 2024-08-26 17:31 | disposition home or self-care (01) ==
PROVIDERS: Emergency Provider Emergency Medicine; PCP Internal Medicine
DX: J40 Bronchitis, not specified as acute or chronic (principal); R09.02 Hypoxemia; R05.9 Cough, unspecified; Z46.6 Encounter for fitting and adjustment of urinary device; Z03.818 Encounter for observation for suspected exposure to other biological agents ruled out; R47.01 Aphasia; G35 Multiple sclerosis; I10 Essential (primary) hypertension; I48.91 Unspecified atrial fibrillation; B19.10 Unspecified viral hepatitis B without hepatic coma; B19.20 Unspecified viral hepatitis C without hepatic coma; F11.20 Opioid dependence, uncomplicated; Z93.59 Other cystostomy status; Z93.1 Gastrostomy status; Z87.891 Personal history of nicotine dependence; Z79.02 Long term (current) use of antithrombotics/antiplatelets; Z79.899 Other long term (current) drug therapy
CPT/HCPCS: 0241U; 36415; 51798; 71045; 71275; 80053; 81001; 83605; 83735; 85025; 87040; 87086; 87147; 87205; 93005; 96361; 96365; 99284; 99285; J0692; J7120; Q9967

== ENCOUNTER → 2024-08-26 10:09 | Outpatient (BNV) | payer OTHER, SELFPAY | PROVIDERS: Emergency Provider Emergency Medicine; PCP Internal Medicine; Visit Provider Radiology Diagnostic Radiology | DX: I26.99 Other pulmonary embolism without acute cor pulmonale (principal); J98.11 Atelectasis; R05.9 Cough, unspecified | CPT/HCPCS: 71045; 71275 ==

== ENCOUNTER → 2024-08-26 10:35 | Outpatient (BNV) | payer OTHER, SELFPAY | PROVIDERS: Emergency Provider Emergency Medicine; PCP Internal Medicine; Visit Provider Internal Medicine Cardiovascular Disease | DX: R06.02 Shortness of breath (principal) | CPT/HCPCS: 93010 ==

== ENCOUNTER 2024-12-07 13:07 | Outpatient (AMB) | payer OTHER, SELFPAY ==
--- NOTE | 2024-12-07 13:22 | MHC.OFFVIS ---
Vital Signs 12/07/24 13:24 Height 6 ft Weight 171 lb BMI 23.2 BP 113/72 Blood Pressure Location Lt brachial Position Sitting Pulse 100 Intake Visit Reasons: follow up/ chronic constipation Intake Note: Patient in office today in follow up chronic constipation. CC: Per staff with patient today he has been having regular BMs. Patient is non verbal. Allergies bee pollen (BEE STINGS) Allergy (Severe, Verified 12/07/24 13:31) Anaphylaxis Medication List - Last Reconciled 12/07/24 by Raj Myers MD acetaminophen 650 mg (2 x 325 mg) feeding tube Q8H PRN alpha lipoic acid 600 mg PO BID amitriptyline 100 mg feeding tube BEDTIME ascorbic acid (vitamin C) (Vitamin C) 500 mg feeding tube BID 90 days atorvastatin 10 mg feeding tube BEDTIME baclofen 40 mg (4 x 10 mg) feeding tube TID bisacodyl (Dulcolax (bisacodyl)) 10 mg VA DAILY PRN cetirizine 10 mg PO DAILY cholecalciferol (vitamin D3) 50 mcg PO DAILY doxycycline hyclate 100 mg IV Q12H doxycycline monohydrate 100 mg feeding tube DAILY PRN epinephrine 0.3 mg IM Q15M PRN famotidine 20 mg feeding tube BID fluticasone propionate 50 mcg/actuation 1 spray intranasal Q4H PRN gabapentin 200 mg PO TID ketoconazole 2% 1 appl topical BID levetiracetam 500 mg PO BID magnesium hydroxide (Milk of Magnesia) 30 mL feeding tube DAILY PRN melatonin 5 mg PO BEDTIME methenamine hippurate 1 g feeding tube DAILY 90 days metoprolol tartrate 25 mg See Protocol G-tube BID polyethylene glycol 3350 17 grams feeding tube DAILY sennosides (senna) 17.2 mg PO BID sodium phosphates 19-7 gram/118 mL (Fleet Enema) 118 mL VA DAILY PRN triamcinolone acetonide 0.025% 1 appl topical BID HPI HPI follow up/ chronic constipation: Details: GI clinic visit for this 44 YM with multiple sclerosis with cognitive and physical impairment, neurogenic bladder status post suprapubic catheter, mood disorder, essential hypertension, hepatitis-C, mixed hyperlipidemia for FU after PEG tube placement on 08/30/23. TODAY'S VISIT: Pt is wheel chair bound and non verbal and [facility] in a [facility] since June 2020. Pt's Mom is his HCP. Per staff with patient today he has been having regular BMs daily Able to take his meals PO without dysphagia or coughing spells. Medications are given via PEG tube after crushing and tube is flushed after each medication with 30 ml of water. Tube feedings are going well PAST VISITS: Abdominal bloating, hard stomach and loose stool not diarrhea. Bloating has improved. Change in stool consistency from soft serve to like a milk shake. Has a BM daily in the afternoon or at night. Can have a few small BMs for a few days followed by a large BM. Patient follow up for chronic constipation and PEG tube. Tube feedings are going well - has gained 20 lbs over the past 6 months Continues to have PO diet as well. Abdomen has been bloated. [facility] would like to get the protocol adjusted Wt is stable at 170 lbs Patient process manager wanted to asked you for a special diet . Wt improved from 130 to 151 lbs PEG tube feedings are going well - Osmolite 1.5 Formula 1 container (237 ml) 5 times a day bolus feeding - 6 am, 10 am, 2 pm, 7 pm and 10 pm Tube feeding orders per Yady Chase, KINGAN: EEN 1647 kcal for wt maintainence at 145 lbs (wt is at low end of ideal for ht and age) EEN for wt gain 1976 - 2146 Kcal - current tube feedings providing 1980 kcal/day Flush with 30 ml of water before and after each feeding Flush 120 ml of water prior to each feeding at 8 am, 12 pm and 5 pm. At least 2 hour intervals before and after meals Check residual before each feedings and hold for residuals > 50 cc - recheck after 1 hour Pt is also given a Pureed diet with honey thick liquids in addition to his tube feedings at 8 am, 12 noon and 5 pm Free water 1745 ml via G tube and 240 ml (8 oz) by mouth Pt is wheel chair bound and non verbal. Pt's Mom is his HCP. He is accompanied by manager Lexie at the [facility] (moved there in June,) who provided the history Pt is on a Pureed, honey thick diet for the past 2 yrs. Wt decreased from 165 to 130 lbs 3rd swallowing evaluation at [facility] - advised to continue same diet. Since last hospitalization Medications are crushed and given in apple sauce Pt has chronic constipation and has a bowel regimen: Miralax, colace and senna twice a day MOM if no BM in 2 days Patient denies major cardiac or pulmonary problems, loud snoring or sleep apnea Recent labs by PCP were normal. Denies being on chronic anticoagulation. Patient denies known family history of colon polyps, colon cancer or other GI malignancies. Pt was hospitalized at [facility] from 08/30/23 to 09/01/23: Hospital Course: 42-year-old male with pertinent history of multiple sclerosis with cognitive and physical impairment, neurogenic bladder status post suprapubic catheter, mood disorder, essential hypertension, hepatitis-C, mixed hyperlipidemia admitted to [facility] for PEG tube placement by [facility]. Patient subsequently admitted to medical floor, treated with IV fluids, and started on G-tube feedings that he is tolerating well without nausea vomiting or high residuals therefore being discharged back to penitentiary with home infusion company for continued feedings, all home medications has been transitioned through G-tube, Toprol-XL discontinued and replaced by metoprolol tartrate 25 mg b.i.d. Hypertension : BP stable , mild chronic tachycardia, continue metoprolol 25 mg b.i.d. via PEG tube hx mutiple sclerosis : Resume all home medications via PEG tube, continue supportive care Pt was hospitalizecd at [facility] from 01/21 to 01/24/23 for lethargy and confusion: 42-year-old male sent to the emergency department from penitentiary. Staff at penitentiary noticed change in order from suprapubic catheter. Unable to obtain any history from the patient. Does have a history of frequent UTI. The advertising supervisor at penitentiary also concern for choking/coughing with p.o. intake. Patient is on a pureed diet with thickened liquids at baseline. Unable to obtain review of systems. In the emergency department, urine was concerning for UTI and patient was initiated on empiric IV antibiotics. hospital course: Patient was admitted for acute metabolic encephalopathy due to suprapubic catheter associated urinary tract infection. He was initially treated with IV ceftriaxone and mental status returned to baseline. Culture grew Serratia that was resistant to ceftriaxone therefore, discharge he will be given 7 more days of p.o. Bactrim. Patient is back to baseline. For his dysphagia he was seen by [facility] who recommended pureed solids and honey thick liquids. For history of MS use continue baclofen. For her hyperlipidemia is continue on statin. Patient is now medically stable be discharged nichole [facility] Medical History Constipation History of substance abuse Former smoker GERD (gastroesophageal reflux disease) HTN (hypertension) GI bleed Hepatitis B Anemia Afib Failure to thrive in adult Seizures Neuromyopathy UTI (urinary tract infection) Suprapubic catheter Hepatitis C Multiple sclerosis Surgical History Hx of cystoscopy Social History Household Members: Other Household Members Other:: [facility] Housing: Other Housing Other:: [facility] Do you presently have visiting nurse or other home services: Yes Alcohol intake: never Comment: penitentiary staff at bedside Patient Tobacco Use Status: Former Tobacco user Tobacco use type: Cigarette e-Cigarette/Vaping Use: Never Used Second Hand Smoke Exposure: No Advance Directives Date on File: 09/02/23 service: No Current occupational status: disabled Review of Systems Const All systems reviewed & are unremarkable except as noted in HPI and below Physical Exam Vital Signs: Last Vital Signs Pulse 100 12/07/24 13:24 BP 113/72 12/07/24 13:24 BMI result Body Mass Index 23.2 Const General: no acute distress Nutritional Appearance: average body habitus Limitations: wheelchair and other limitations (non-verbal) HEENT Head: Yes normal to inspection Ears: hearing grossly normal bilaterally Mouth: Normal oral and palatal mucosa present Eyes Sclerae: sclerae normal Neck Neck: Yes normal visual inspection Chest Chest palpation & inspection: normal inspection of the chest Resp Effort & Inspection: normal respiratory effort Auscultation: clear to auscultation bilaterally Cardio Palpation: normal PMI Rate: regular rate Rhythm: regular rhythm Heart sounds: S1 normal heart sound present, S2 normal heart sound present and no murmurs GI Inspection: Yes G-tube present Palpation (GI): Soft to palpation, nontender and No hepatosplenomegaly present Auscultation: normal bowel sounds Rectal Exam - Male: Yes deferred Skin General skin exam: no rashes or lesions noted Neuro General: other (non-verbal) Psych Other: Non-verbal and wheel chair bound Assessment & Plan Assessment & Plan (1) Hepatitis C: Code(s): B19.20 - Unspecified viral hepatitis C without hepatic coma Category: Medical (2) Dysphagia: Code(s): R13.10 - Dysphagia, unspecified Category: Medical (3) Chronic constipation: Code(s): K59.09 - Other constipation Category: Medical (4) Gastrostomy status: Code(s): Z93.1 - Gastrostomy status Category: Surgical Plan 44 YM with multiple sclerosis with cognitive and physical impairment, neurogenic bladder status post suprapubic catheter, mood disorder, essential hypertension, hepatitis-C, mixed hyperlipidemia seen for FU after PEG tube placement on 08/30/23 Pt is wheel chair bound and non verbal. Pt was seen by [facility] who recommended pureed solids and honey thick liquids. 3rd swallowing evaluation at [facility] - advised to continue same diet. Pt has been on above diet for the past 2 yrs. Wt decreased from 165 to 130 lbs NUTRITION WHEN ABLE, RECOMMEND OSMOLITE 1.5 AT MAX GOAL RATE 55 ML PER HOUR, FREE WATER FLUSHES 240 ML Q6 HOURS. PROVIDES 1980 KCALS (28.3 KCALS/KG), 82.8 G PROTEIN (1.18 G/KG), 1966 ML FREE WATER FROM FORMULA AND FLUSH (28.1 ML/KG). START OSMOLITE 1.5 AT 20 ML PER HOUR, INCREASE BY 10 ML EVERY 4 HOURS UNTIL MAX GOAL RATE OF 55 ML PER HOUR IS ACHIEVED. CHECK RESIDUALS EVERY 4 HOURS, HOLD FOR 2 HOURS IF >250 ML. FOLLOW FOR TUBE FEED TOLERANCE, RESIDUALS AND LYTES. SEE CLINICAL NUTRITION ASSESSMENT 08/30/23. Addendum entered by Eda Biswas RD 08/30/23 14:22: SPOKE WITH NA FROM [facility] VIA PHONE. EXPLAINED THAT TUBE FEED WOULD BE CONTINUOUS X 24 HOURS TO ESTABLISH TOLERANCE. NOCTURNAL FEEDS OR BOLUS FEEDS COULD BE CONSIDERED IN THE FUTURE IF TOLERATED. PATIENT TAKES PUREE SOLIDS WITH HONEY THICK LIQUIDS AT [facility]. 12/20/23 PEG tube feedings are going well - Osmolite 1.5 Formula 1 container (237 ml) 5 times a day bolus feeding - 6 am, 10 am, 2 pm, 7 pm and 10 pm Pt is also given a Pureed diet with honey thick liquids in addition to his tube feedings at 8 am, 12 noon and 5 pm 04/13/24 Abdominal distension and bloating after tube feedings KUB to check for obstipation. Advised to increase Miralax to twice a day If pt continues to gain weight - will need to decrease his caloric intake to prevent him from become overweight/obese ADDENDUM KUB SHOWED: 1. Obstipation. 2. No abnormal dilatation of small bowel loops. 3. Suprapubic catheter, and G tube in good position. 06/08/24 Bloating has improved. Change in stool consistency from soft serve to like a milk shake. Has a BM daily in the afternoon or at night. 06/12/24 PEG tube was changed. 12/07/24 Pt scheduled for a PEG tube change on 01/12/25. FU in 6 months - scheduled 05/24/24 Orders: Referrals GI Procedure Notification Z93.1 - Gastrostomy status Coding Level of Care Code Est Pt Level 3 (63672) Diagnoses Hepatitis C B19.20 Dysphagia R13.10 Chronic constipation K59.09 Gastrostomy status Z93.1 Time Spent (min) 19
[2024-12-07 13:24] VITALS: BP 113/72; PULSE 100; BMI 23.2
--- OUTSIDE RECORDS SUMMARY | 2024-12-07 17:50 | XMS_ITS | Encounter Summary ---
Author Organization [facility] Address [address] [place] [address] Care Team Providers Care Entry Level Web Developer Name Role Phone Reji Lu Primary Care Provider Reason for Visit * Reason Onset Date Comments Reschedule 04/01/2021 Encounter Details Date Type Department Care Team (Late st Contact Info) Description 04/01/2021 Telephone [facility] Central Scheduling Department [address] [place] [address] Telephone Intake, Staff Reschedule Social History Tobacco Use Types Packs/Day Years Used Date Smoking Tobacco: Never Smokeless Tobacco: Never Sex and Gender Information Value Date Recorded Sex Assigned at Not on file Legal Sex Male 1:01 PM EDT Gender Identity Not on file Sexual Orientation Not on file documented as of this encounter Miscellaneous Notes * Telephone Encounter - Dora Augustine - 04/01/2021 3:49 PM EST Amy Enameler rescheduling pt's MS appt for 04/03 with Isaac Hugo MD Per DT, rescheduled appt for 09/[address] Hugo documented in this encounter Plan of Treatment Not on file documented as of this encounter Visit Diagnoses Not on filedocumented in this encounter Care Teams Entry Level Web Developer Relationship Specialty Start Date End Date TabithaReji [address] [place] [address] PCP - General Internal Medicine 10/18/24 documented as of this encounter
--- OUTSIDE RECORDS SUMMARY | 2024-12-07 17:50 | XMS_ITS | Encounter Summary ---
Author Organization [facility] Address [address] [place] [address] Care Team Providers Care Vault Teller Name Role Phone Reji Lu Primary Care Provider [phone] Reason for Visit * Reason Onset Date Comments RX refill 06/19/2021 Encounter Details Date Type Department Care Team (Late st Contact Info) Description 06/19/2021 Telephone [facility] Central Scheduling Department [address] [place] [address] Telephone Intake, Staff RX refill Social History [...] anything yet pls follow up once complete [phone] documented in this encounter Plan of Treatment Not on file documented as of this encounter Visit Diagnoses Not on filedocumented in this encounter Care Teams Vault Teller Relationship Specialty Start Date End Date Reji Lu [address] [place] [phone] PCP - General Internal Medicine 10/18/24 documented as of this encounter
--- OUTSIDE RECORDS SUMMARY | 2024-12-07 17:50 | XMS_ITS | Encounter Summary ---
Author Organization [facility] Address [address] [place] [address] Care Team Providers Care Chief Operator Hydroformer Name Role Phone Reji Lu Primary Care Provider [phone] Reason for Visit * Reason Onset Date Comments Fax Referral 07/29/2020 Encounter Details Date Type Department Care Team (Late st Contact Info) Description 07/29/2020 Telephone [facility] Central Scheduling Department [address] [place] [address] Telephone Intake, Staff Fax Referral Social History [...] She states that she has power of employment law attorney. Noe will be coming to the initial visit with someone from his nursing home, but she is unable to attend the first visit. She will have the nursing home bring 1. Copy of power of employment law attorney, 2. MRI results report from [facility] 2017. 3. Medication list, 4. Most recent PCP note. (she does not know PCP's name at the moment.) I have sent her the [employer] link, so that she can also send us records thru [employer]. His mother adds that he is a poor historian. * Telephone Encounter - Nickolas Sam - 07/29/2020 1:16 PM EDT [facility] has medical records of pt Pt's mother said the most recent MRI was in September 2016. To obtain this, mother said she was having difficult time. [facility] wants [facility] to fax them a request and they will send records. [facility] fax number: [phone] documented in this encounter Plan of Treatment Not on file documented as of this encounter Visit Diagnoses Not on filedocumented in this encounter Care Teams Chief Operator Hydroformer Relationship Specialty Start Date End Date Reji Lu [address] [place] [address] PCP - General Internal Medicine 10/18/24 documented as of this encounter
--- OUTSIDE RECORDS SUMMARY | 2024-12-07 17:50 | XMS_ITS | Encounter Summary ---
Author Organization [facility] Address [address] [place] [address] Care Team Providers Care Training And Development Manager Name Role Phone Reji Lu Primary Care Provider [phone] Reason for Visit * Reason Onset Date Comments Med Refill 12/01/2024 Encounter Details Date Type Department Care Team (Late st Contact Info) Description 12/01/2024 Refill [facility] [address] [place] [address] Molina Mendenhall LPN Multiple sclerosis (HCC) Social History Tobacco Use Types Packs/Day Years Used Date Smoking Tobacco: Never Smokeless Tobacco: Never Sex and Gender Information Value Date Recorded Sex Assigned at Not on file Legal Sex Male 1:01 PM EDT Gender Identity Not on file Sexual Orientation Not on file documented as of this encounter Plan of Treatment Not on file documented as of this encounter Visit Diagnoses Diagnosis Multiple sclerosis (HCC) Multiple sclerosis documented in this encounter Care Teams Training And Development Manager Relationship Specialty Start Date End Date Reji Lu [address] [place] [address] PCP - General Internal Medicine 10/18/24 documented as of this encounter
--- OUTSIDE RECORDS SUMMARY | 2024-12-07 17:50 | XMS_ITS | Encounter Summary ---
Author Organization [facility] Address [address] [place] [address] Care Team Providers Care Self Propelled Hot Mix Roller Operator Name Role Phone Reji Lu Primary Care Provider [phone] Reason for Visit * Reason Onset Date Comments Med Refill 12/04/2024 Encounter Details Date Type Department Care Team (Late st Contact Info) Description 12/04/2024 Refill [facility] S[facility] [address] [place] [address] Fire Observer: Lisa Perez Multiple sclerosis (HCC); Spastic quadriplegia (HCC) Social History Tobacco Use Types Packs/Day [...] Diagnoses Diagnosis Multiple sclerosis (HCC) Multiple sclerosis Spastic quadriplegia (HCC) Unspecified quadriplegia documented in this encounter Care Teams Self Propelled Hot Mix Roller Operator Relationship Specialty Start Date End Date Reji Lu [address] [place] [address] PCP - General Internal Medicine 10/18/24 documented as of this encounter
--- OUTSIDE RECORDS SUMMARY | 2024-12-07 17:50 | XMS_ITS | Encounter Summary ---
Author Organization [facility] Address [address] [place] [address] Care Team Providers Care Community Representative Name Role Phone Reji Lu Primary Care Provider [phone] Encounter Details Date Type Department Care Team (Late st Contact Info) Description 07/15/2021 Telephone [facility] Central Scheduling Department [address] [place] [address] Telephone Intake, Staff Social History Tobacco Use [...] Hugo Caregiver reqs prescription be refilled at [facility] [phone] Sending TE to [facility] Mutiple Sclerosis Clinical Staff per DT to please obtain order from provider and send to above named pharmacy documented in this encounter Plan of Treatment Not on file documented as of this encounter Visit Diagnoses Not on filedocumented in this encounter Care Teams Community Representative Relationship Specialty Start Date End Date Reji Lu [address] [place] [phone] PCP - General Internal Medicine 10/18/24 documented as of this encounter
--- OUTSIDE RECORDS SUMMARY | 2024-12-07 17:50 | XMS_ITS | Encounter Summary ---
Author Organization [facility] Address [address] [place] [address] Care Team Providers Care Radiation Oncologist Name Role Phone Reji Lu Primary Care Provider [phone] Encounter Details Date Type Department Care Team (Late st Contact Info) Description 12/01/2024 myChart Message [facility] Neurology [facility] [address] [place] [phone] Molina Mendenhall LPN refill Social History Tobacco Use Types Packs/Day [...] on filedocumented in this encounter Care Teams Radiation Oncologist Relationship Specialty Start Date End Date Reji Lu [address] [place] [phone] PCP - General Internal Medicine 10/18/24 documented as of this encounter
--- OUTSIDE RECORDS SUMMARY | 2024-12-07 17:50 | XMS_ITS | Clinical Summary ---
Author Organization [facility] Address [address] [place] [address] Care Team Providers Care Tool And Machine Maintainer Name Role Phone Reji Lu Primary Care Provider [phone] Allergies Active Allergy Reactions Criticality Noted Date Comments Beeswax Anaphylaxis High 07/13/2024 Medications acetaminophen (TYLENOL) 325 mg tablet Take [...] Take 25 mg by mouth nightly. Active phenytoin (DILANTIN) 50 mg chewable tablet Chew and swallow 2 tablets (100 mg total) by mouth once a day. 60 tablet 4 4 Active sennosides (SENNA ORAL) Take 17.2 mg by mouth. Active atorvastatin (LIPITOR) 10 mg tablet Take 10 mg by mouth once a day. Active famotidine (PEPCID) 20 mg tablet Take 20 mg by mouth 2 times a day. Active cholecalciferol (VITAMIN D3) 2,000 unit capsule Take 1 capsule by mouth once a day. Active levETIRAcetam (KEPPRA) 500 mg tabletIndications :Multiple sclerosis (HCC) Take 1 tablet (500 mg total) by mouth 2 times a day. 60 tablet 07/15/19 Active alpha lipoic acid 600 mg capsuleIndication s:Multiple sclerosis (HCC),Spastic quadriplegia (HCC),Cognitive impairment Take 1 capsule (600 mg total) by mouth 2 (two) times a day. Via G-Tube 60 capsule 11/09/19 Active gabapentin (NEURONTIN) 100 mg capsuleIndication s:Multiple sclerosis (HCC) Take 2 capsules (200 mg total) by mouth 3 times a day. 180 capsule 12/06/19 Active baclofen (LIORESAL) 10 mg tabletIndications :Multiple sclerosis (HCC),Spastic quadriplegia (HCC) Take 4 tablets (40 mg total) by mouth 3 times a day. 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 Cognitive impairment 05/20/2021 Neurogenic bladder 05/20/2021 Multiple sclerosis 08/01/2020 History of seizure disorder Encounters Date Type Department Care Team Description 12/04/2024 Chucky [facility] [address] [place] [address] Cranberry Bog Supervisor: Lisa Perez Multiple sclerosis (HCC); Spastic quadriplegia (HCC) 12/01/2024 myChart Message [facility] Neurology [facility] [address] [place] [address] Molina Mendenhall LPN refill 12/01/2024 Refill [facility] [address] [place] [address] Molina Mendenhall LPN Multiple sclerosis (HCC) 12/01/2024 Telephone [facility] Neurology [address] [address] Deepa Zimmer CCMA PAC RX Refill 11/08/2024 Refill [facility] [address] [place] [address] [place] Supervisor: Mayte Ordoñez LPN Multiple sclerosis (HCC); Spastic quadriplegia (HCC); Cognitive impairment 10/17/2024 Telephone [facility] [address] [place] [address] [place] Supervisor: Laxmi Rosario Telephone Intake, Staff PAC Appt Request - Established from Last 3 Months Social History Tobacco [...] Sign Reading Time Taken Comments Blood Pressure 116/78 07/13/2024 2:49 PM EDT Pulse 108 07/13/2024 2:49 PM EDT Temperature - - Respiratory Rate - - Oxygen Saturation - - Inhaled Oxygen Concentration - - Weight - - Height - - Body Mass Index - - Plan of Treatment Health Maintenance Due Date Last Done Comments Cologuard 1978 Colon Cancer Screening 1978 Colonoscopy 1978 FOBT / Fit Test 1978 HIV Screening 1978 Hepatitis C Screening 1978 Sigmoidoscopy 1978 Hepatitis B Vaccines (1 of 3 - 19+ 3-dose series) 1997 Alcohol/Substance Use Screening 03/15/2024 Depression Screening and Follow-Up 03/15/2024 Social Drivers of Health Annual Screening 03/15/2024 Influenza Vaccine (#1) 2024 , 02/25/2023, 01/22/2023, Additional history exists DTaP,Tdap,and Td Vaccines (2 - Td or Tdap) 07/19/2031 07/18/2021 RSV Vaccine (60+ years old and patients) (1 - 1-dose 75+ series) 2053 Pneumococcal Vaccine: Pediatric (0-5 Years) and At-Risk Patients (6-50 Years) Aged Out 08/19/2022 No longer eligible based on patient's age to complete this topic COVID-19 Vaccine Completed 07/10/2024, , 01/31/2021, Additional history exists Procedures * Due to [place] state law, this organization might not be sharing negative HIV tests. Procedure Name Priority Date/Time Associated Diagnosis Comments NEURODIAGNOSTIC - SCANNED 09/29/2024 from Last 3 Months Results * Due to [place] law, this organization might not be sharing negative HIV tests. * NEURODIAGNOSTIC - SCANNED (09/29/2024) us Onbase Scan [facility] SCANNED PROCEDURES Final Resu lt from Last [address] [place] [address] [facility] MEDICAID Advance Directives Documents on File Type Date Recorded Patient Spar Machine Operator Expl anation Power of Ncr Operator 08/21/2020 6:37 PM 2018 Care Teams Tool And Machine Maintainer Relationship Specialty Start Date End Date Reji Lu [address] [place] [address] PCP - General Internal Medicine 10/18/24
--- OUTSIDE RECORDS SUMMARY | 2024-12-07 17:50 | XMS_ITS | Encounter Summary ---
Author Organization [facility] Address [address] [place] [address] Care Team Providers Care Itinerant Teacher Assistant Name Role Phone Reji Lu Primary Care Provider [phone] Reason for Visit * Reason Comments PAC RX Refill Encounter Details Date Type Department Care Team (Late st Contact Info) Description 12/01/2024 Telephone [facility] Neurology Clinic [address] [place] [address] Deepa Zimmer CCMA PAC RX Refill Social History Tobacco Use Types Packs/Day Years Used Date Smoking Tobacco: Never Smokeless Tobacco: Never Sex and Gender Information Value Date Recorded Sex Assigned at Not on file Legal Sex Male 1:01 PM EDT Gender Identity Not on file Sexual Orientation Not on file documented as of this encounter Miscellaneous Notes * Telephone Encounter - SHERRI Saavedra - 12/01/2024 12:56 PM EDT Copied from [facility] #[id number]. Topic: Medication - Established Patient Rx Request >> Dec 01, 2024 12:54 PM SHERRI Franz wrote: If patient has not spoken to pharmacy, please have them reach out to their pharmacy first. Disregard message and change CRM to Informational If patient has already discussed with Pharmacy, complete information below. Drug name(s): Gabapentin Dose: 100mg Interval: 2 capsules tid Date Last Filled: 01/06/24 Quantity: 30 Ordering provider: Isaac Hugo Refill? (yes or no): yes, [facility] - [place], [place] - [address] [phone] documented in this encounter Plan of Treatment Not on file documented as of this encounter Visit Diagnoses Not on filedocumented in this encounter Care Teams Itinerant Teacher Assistant Relationship Specialty Start Date End Date Reji Lu [address] [place] [address] PCP - General Internal Medicine 10/18/24 documented as of this encounter
== END 2024-12-07 14:03 | disposition home health service (06) ==
PROVIDERS: PCP Internal Medicine; Visit Provider Internal Medicine Gastroenterology
DX: B19.20 Unspecified viral hepatitis C without hepatic coma (principal); R13.10 Dysphagia, unspecified; K59.09 Other constipation; Z93.1 Gastrostomy status
CPT/HCPCS: 99213

== ENCOUNTER → 2024-12-07 13:07 | Outpatient (BNVA) | payer OTHER, SELFPAY | PROVIDERS: PCP Internal Medicine; Visit Provider Internal Medicine Gastroenterology | DX: Z93.1 Gastrostomy status (principal); B19.20 Unspecified viral hepatitis C without hepatic coma; R13.10 Dysphagia, unspecified; K59.09 Other constipation | CPT/HCPCS: 99212 ==

== ENCOUNTER 2025-01-04 11:21 | Outpatient (AMB) | payer OTHER, SELFPAY ==
--- NOTE | 2025-01-04 11:21 | A.OFFVIS_ITS ---
Intake Visit Reasons: 6m follow up Intake Note: Patient is present for a 6 month follow up Urology Med: Methenamine, VIT -C Amitriptyline Antibiotic Allergy: None Shuttle Threader Required: No Accompanied by: Self / Same As Patient Allergies bee pollen (BEE STINGS) Allergy (Severe, Verified 01/04/25 11:22) Anaphylaxis HPI Comments Details: Noe KIRKPATRICK s a very pleasant male. They are a patient of Dr Cross. They are seen in the office today for the following urologic conditions. - neurogenic bladder Telemedicine Evaluation 15 min Consultation AgileMesh Coy Video Has been doing suprapubic tube exchange every 2 weeks due to clogging Has flushing on Tuesdays and Sundays Receives doxycycline the morning and afternoon of catheter change Daily methenamine with vitamin-C Refills provided Neurogenic Bladder:? They are here for ?further management for incomplete emptying neurogenic bladder ?- can be changed at facility ? Urinary retention initially found?progressive development over time.? Associated conditions? Multiple sclerosis ?Yes ? renal replacement therapy ?No ? Spinal injury/surgery ?No ? Current management?SPT placed in hospital for retention and UTI.? Therapeutic plan?change SPT q2-3 weeks at facility.? PFSH Medical History Constipation History of substance abuse Former smoker GERD (gastroesophageal reflux disease) HTN (hypertension) GI bleed Hepatitis B Anemia Afib Failure to thrive in adult Seizures Neuromyopathy UTI (urinary tract infection) Suprapubic catheter Hepatitis C Multiple sclerosis Surgical History Hx of cystoscopy Social History Household Members: Other Household Members Other:: Skilled Nursing Housing: Other Housing Other:: Skilled Nursing Do you presently have visiting nurse or other home services: Yes Unable to assess alcohol history related to: Unable to respond Alcohol intake: never Comment: senior care staff at bedside Patient Tobacco Use Status: Former Tobacco user Tobacco use type: Cigarette e-Cigarette/Vaping Use: Never Used Second Hand Smoke Exposure: No Advance Directives Date on File: 09/02/23 service: No Current occupational status: disabled Review of Systems Const All systems reviewed & are unremarkable except as noted in HPI and below Reports no additional complaints Resp Reports no additional complaints GI Reports no additional complaints Reports as per HPI Musc Reports no additional complaints Physical Exam Telemedicine evaluation Appropriate responses Regular breathing rate and rhythm HEENT Head: Yes normal to inspection Ears: hearing grossly normal bilaterally Eyes General: appearance normal, both eyes and all related structures Neck Neck: Yes normal visual inspection Chest Chest palpation & inspection: normal inspection of the chest Resp Effort & Inspection: normal respiratory effort and able to speak in complete sentences Telehealth Telehealth Telehealth Platform: AgileMesh Location of provider rendering services: practice address Location of patient: address on file Patient Identification confirmed using: Name, : Yes Telehealth method: video Patient verbally consented to treatment: Yes Patient verbally consented to billing insurance company: Yes Patient informed of any privacy concerns related to visit: Yes Minutes spent on Phone/Video with Pt.: 15 Assessment & Plan Assessment & Plan (1) Suprapubic catheter: Code(s): Z93.59 - Other cystostomy status Category: Medical (2) Neurogenic urinary bladder disorder: Code(s): N31.9 - Neuromuscular dysfunction of bladder, unspecified Category: Medical Plan Six-month follow-up office Medications: Refilled ascorbic acid (vitamin C) (Vitamin C) 500 mg feeding tube BID 180 tabs 1RF 90 days methenamine hippurate 1 g feeding tube DAILY 90 tabs 1RF 90 days Patient Instructions: This note is constructed using voice recognition software. While every effort has been made to ensure accuracy field project manager errors may have been included. Imaging studies, laboratory and physical exam results were discussed and reviewed in detail. No major barriers to patient understanding were identified. An opportunity to ask questions regarding the treatment plan was provided. All questions were answered. The patient expressed understanding and agreement with the above treatment plan. The patient is aware they should contact our office by phone for worsening of their current condition or the appearance of new urologic symptoms. Compliance is encouraged with any medications and followup testing that is ordered. It is a privilege to participate in the urologic care of your patient. If you have any questions or concerns regarding treatment for the above conditions, or other urologic issues, please do not hesitate to contact me. The office telephone contact is [phone]. Sincerely, Dr Cristi Zepeda MD, [facility] - Urology Compassionate Specialist Care for the Genitourinary System Coding Level of Care Code Tele Est Pt Level 3 (65552) Complex EM visit Add On G2211 Diagnoses Suprapubic catheter Z93.59 Neurogenic urinary bladder disorder N31.9
--- OUTSIDE RECORDS SUMMARY | 2025-01-04 14:32 | XMS_ITS | Encounter Summary ---
Author Organization [facility] Address [address] [place] [address] Care Team Providers Care Elder Counselor Name Role Phone Unavailable Primary Care Provider Unavailabl e Reason for Visit * Reason Comments PAC RX Refill Encounter Details Date Type Department Care Team (Late st Contact Info) Description 12/01/2024 Telephone [facility] Neurology Clinic [address] [place] [address] Deepa Zimmer CCMA PAC RX Refill Social [...] - 12/01/2024 12:56 PM EDT Copied from [facility] #[id number]. Topic: Medication - Established Patient Rx Request [...] Hugo Refill? (yes or no): yes, [facility] - [place] [id number] [place] [id number] [facility] [address] [facility] [phone] documented in this encounter Plan of Treatment Not on file documented as of this encounter Visit Diagnoses Not on filedocumented in this encounter
--- OUTSIDE RECORDS SUMMARY | 2025-01-04 14:32 | XMS_ITS | Encounter Summary ---
Author Organization [facility] Address [address] [place] [address] Care Team Providers Care Hides Soaker Name Role Phone Brent Stahl Primary Care Provider [phone] Reason for Visit * Reason Onset Date Comments Reschedule 04/01/2021 Encounter Details Date Type Department Care Team (Late st Contact Info) Description 04/01/2021 Telephone [facility] Central Scheduling Department [address] [place] [address] Telephone Intake, Staff Reschedule Social History Tobacco [...] Davide - 04/01/2021 3:49 PM EST [employer] Founder rescheduling pt's MS appt for 04/03 with Isaac Hugo MD Per DT, rescheduled appt for 09/[address] Hugo documented in this encounter Plan of Treatment Not on file documented as of this encounter Visit Diagnoses Not on filedocumented in this encounter Care Teams Hides Soaker Relationship Specialty Start Date End Date Brent Stahl [address] [place] [address] PCP - General Internal Medicine 01/04/25 documented as of this encounter
--- OUTSIDE RECORDS SUMMARY | 2025-01-04 14:32 | XMS_ITS | Encounter Summary ---
Author Organization [facility] Address [address] [place] [address] Care Team Providers Care Industrial Staff Nurse Name Role Phone FavioBrent Chris Primary Care Provider [phone] Reason for Visit * Reason Onset Date Comments Fax Referral 07/29/2020 Encounter Details Date Type Department Care Team (Late st Contact Info) Description 07/29/2020 Telephone [facility] Central Scheduling Department [address] [place] [address] Telephone Intake, Staff Fax Referral Social History [...] She states that she has power of real estate associate attorney. Noe will be coming to the initial visit with someone from his [facility], but she is unable to attend the first visit. She will have the ch[facility] bring 1. Copy of power of real estate associate attorney, 2. MRI results report from [facility] 2017. 3. Medication list, 4. Most recent PCP note. (she does not know PCP's name at the moment.) I have sent her the [employer] link, so that she can also send us records thru [employer]. His mother adds that he is a poor historian. * Telephone Encounter - Nickolas Sam - 07/29/2020 1:16 PM EDT [facility] has medical records of pt Pt's mother said the most recent MRI was in September 2016. To obtain this, mother said she was having difficult time. [facility] wants [facility] to fax them a request and they will send records. [facility] fax number: [phone] documented in this encounter Plan of Treatment Not on file documented as of this encounter Visit Diagnoses Not on filedocumented in this encounter Care Teams Industrial Staff Nurse Relationship Specialty Start Date End Date Brent Stahl [address] [place] [address] PCP - General Internal Medicine 01/04/25 documented as of this encounter
--- OUTSIDE RECORDS SUMMARY | 2025-01-04 14:32 | XMS_ITS | Encounter Summary ---
Author Organization [facility] Address [address] [place] [address] Care Team Providers Care Intelligence Senior Sergeant Name Role Phone Unavailable Primary Care Provider Unavailabl e Encounter Details Date Type Department Care Team (Late st Contact Info) Description 12/01/2024 myChart Message [facility] Neurology Clinic [address] [place] [address] Molina Mendenhall LPN refill Social History Tobacco [...]
--- OUTSIDE RECORDS SUMMARY | 2025-01-04 14:32 | XMS_ITS | Encounter Summary ---
Author Organization [facility] Address [address] [place] [address] Care Team Providers Care Deburring Technician Name Role Phone Brent Stahl Primary Care Provider [phone] Encounter Details Date Type Department Care Team ([facility] st Contact Info) Description 07/15/2021 Telephone [facility] Central Scheduling Department [address] [place] [address] Telephone Intake, Staff Social History Tobacco Use [...] Hugo Caregiver reqs prescription be refilled at [facility] [phone] Sending TE to [facility] Mutiple Sclerosis Clinical Staff per DT to please obtain order from provider and send to above named pharmacy documented in this encounter Plan of Treatment Not on file documented as of this encounter Visit Diagnoses Not on filedocumented in this encounter Care Teams Deburring Technician Relationship Specialty Start Date End Date Brent Stahl [address] [place] [address] PCP - General Internal Medicine 01/04/25 documented as of this encounter
--- OUTSIDE RECORDS SUMMARY | 2025-01-04 14:32 | XMS_ITS | Encounter Summary ---
Author Organization [facility] Address [address] [place] [address] Care Team Providers Care Tallow Refiner Name Role Phone Brent Stahl Primary Care Provider [phone] Reason for Visit * Reason Onset Date Comments RX refill 06/19/2021 Encounter Details Date Type Department Care Team ([facility] st Contact Info) Description 06/19/2021 Telephone [facility] Central Scheduling Department [address] [place] [address] Telephone Intake, Staff RX refill Social History [...] anything yet pls follow up once complete [phone] documented in this encounter Plan of Treatment Not on file documented as of this encounter Visit Diagnoses Not on filedocumented in this encounter Care Teams Tallow Refiner Relationship Specialty Start Date End Date Brent Stahl [address] [place] [address] PCP - General Internal Medicine 01/04/25 documented as of this encounter
--- OUTSIDE RECORDS SUMMARY | 2025-01-04 14:32 | XMS_ITS | Clinical Summary ---
Author Organization [facility] Address [address] [place] [address] Care Team Providers Care Press Puller Name Role Phone FavioBrent Chris Primary Care Provider [phone] Allergies Active Allergy Reactions Criticality Noted Date [...] levETIRAcetam (KEPPRA) 500 mg tabletIndications :Multiple sclerosis Take 1 tablet (500 mg total) by mouth 2 times a day. 60 tablet 5 07/15/19 Active alpha lipoic acid 600 mg capsuleIndication s:Multiple sclerosis,Spastic quadriplegia,Cogn itive impairment Take 1 capsule (600 mg total) by mouth 2 (two) times a day. Via G-Tube 60 capsule 11/09/19 Active gabapentin (NEURONTIN) 100 mg capsuleIndication s:Multiple sclerosis Take 2 capsules (200 mg total) by mouth 3 times a day. 180 capsule 5 12/06/19 Active baclofen (LIORESAL) 10 mg tabletIndications :Multiple sclerosis,Spastic quadriplegia Take 4 tablets (40 mg total) by mouth 3 times a day. 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 Cognitive impairment 05/20/2021 Neurogenic bladder 05/20/2021 Multiple sclerosis 08/01/2020 History of seizure disorder Encounters Date Type Department Care Team Description 12/04/2024 Chucky [facility] Multiple Sclerosis [facility] [address] [place] [address] Single Pointed Operator: Lisa Perez Multiple sclerosis (HCC); Spastic quadriplegia (HCC) 12/01/2024 myChart Message [facility] Neurology Clinic [address] [place] [address] Molina Mendenhall LPN refill 12/01/2024 Refill [facility]rology [facility] [address] [place] [address] Molina Mendenhall LPN Multiple sclerosis (HCC) 12/01/2024 Telephone [facility] Neurology Clinic [address] [place] [address] Deepa Zimmer CCMA PAC RX Refill 11/08/2024 Refill [facility] Multiple Sclerosis [facility] [address] [place] [address] Single Pointed Operator: Mayte Ordoñez LPN Multiple sclerosis (HCC); Spastic quadriplegia (HCC); Cognitive impairment 10/17/2024 Telephone [facility] Multiple Sclerosis [facility] [address] [place] [address] Single Pointed Operator: Laxmi Rosario Telephone Intake, Staff PAC Appt [...] Social Drivers of Health Annual Screening 03/15/2024 COVID-19 Vaccine ( season) 2024 07/10/2024, 01/02/2022, 01/31/2021, Additional history exists Influenza Vaccine (#1) 2024 , 02/25/2023, 01/22/2023, Additional history exists DTaP,Tdap,and Td Vaccines (2 - Td or Tdap) 07/19/2031 07/18/2021 RSV Vaccine (60+ years old and patients) (1 - 1-dose 75+ series) 2053 Pneumococcal Vaccine: Pediatric (0-5 Years) and At-Risk Patients (6-50 Years) Aged Out 08/19/2022 No longer eligible based on patient's age to complete this topic Insurance [facility] MEDICAID Advance Directives Documents on File Type Date Recorded Patient Solar Sales Representative And Assessor Expl anation Power of Farm Rancher 08/21/2020 6:37 PM 2018 Care Teams Press Puller Relationship Specialty Start Date End Date Brent Stahl [address] [place] [address] PCP - General Internal Medicine 01/04/25
== END 2025-01-04 11:35 | disposition home or self-care (01) ==
LOC: HO.HUSH 11:21
PROVIDERS: PCP Internal Medicine; Visit Provider Urology
DX: Z93.59 Other cystostomy status (principal); N31.9 Neuromuscular dysfunction of bladder, unspecified
CPT/HCPCS: 99213; G2211

== ENCOUNTER 2025-01-24 06:03 | Emergency (ER) | payer OTHER, SELFPAY ==
--- NOTE | ~2025-01-24 | XR_ITS ---
EXAMINATION: XR ABDOMEN KUB CLINICAL INDICATION: g tube placement COMPARISON: April 13, 2024. TECHNIQUE: AP view of the abdomen following the instillation of contrast through the G-tube.. FINDINGS: Contrast within the lumen of the m& first and second portions of the duodenum. No extraluminal contrast. XR/XR KUB IMPRESSION: G-tube in satisfactory placement. Electronically signed by: Adryan Mensah MD 01/24/2025 07:24 AM [facility]
[2025-01-24 06:10] VITALS: BP 126/86; PULSE 95; O2SAT 98; BMI 29.1
--- NOTE | 2025-01-24 06:15 | PC.NURSE ---
at bedside placing Gtube, Per Dr PEREZ for Gtube placement ordered. 20F G Tube placed and 10mL saline lock
[2025-01-24 06:19] VITALS: BP 119/86; PULSE 83; RESP 16; TEMP 36.6; O2SAT 99
--- OUTSIDE RECORDS SUMMARY | 2025-01-24 06:33 | XMS_ITS | Encounter Summary ---
Author Organization [facility] Address [address] [place] [address] Care Team Providers Care Data Manager Name Role Phone Reji Lu Primary Care Provider [phone] Reason for Visit * Reason Onset Date Comments RX refill 06/19/2021 Encounter Details Date Type Department Care Team (Late st Contact Info) Description 06/19/2021 Telephone [facility] Central Scheduling Department [address] [place] [address] Telephone Intake, Staff RX refill Social History [...] anything yet pls follow up once complete [phone] documented in this encounter Plan of Treatment Not on file documented as of this encounter Visit Diagnoses Not on filedocumented in this encounter Care Teams Data Manager Relationship Specialty Start Date End Date Reji Lu [address] [place] [address] PCP - General Internal Medicine 01/19/25 documented as of this encounter
--- OUTSIDE RECORDS SUMMARY | 2025-01-24 06:33 | XMS_ITS | Clinical Summary ---
Author Organization [facility] Address [address] [place] [address] Care Team Providers Care Bell Ringer Name Role Phone SteffenkaiReji Primary Care Provider [phone] Allergies Active Allergy Reactions Criticality Noted Date [...] Type Department Care Team Description 12/04/2024 Chucky [facility] [address] [place] [phone] Sewer Builder: Lisa Perez Multiple sclerosis (HCC); Spastic quadriplegia (HCC) 12/01/2024 myChart Message [facility] [address] [place] [address] Molina Mendenhall LPN refill 12/01/2024 Refill [facility] [address] [place] [address] Molina Mendenhall LPN Multiple sclerosis (HCC) 12/01/2024 Telephone [facility] [address] [place] [address] Deepa Zimmer CCMA PAC RX Refill 11/08/2024 Refill [facility] [address] [place] [phone] Sewer Builder: Mayte Ordoñez LPN Multiple sclerosis (HCC); Spastic quadriplegia (HCC); Cognitive impairment from Last 3 Months Social History Tobacco [...] of Health Annual Screening 03/15/2024 COVID-19 Vaccine (2024- season) 2024 07/10/2024, 01/02/2022, 01/31/2021, Additional history exists Influenza Vaccine (#1) 2024 , 02/25/2023, 01/22/2023, Additional history exists DTaP,Tdap,and Td Vaccines (2 - Td or Tdap) 07/19/2031 07/18/2021 Pneumococcal Vaccine: Pediatric (0-5 Years) and At-Risk Patients (6-50 Years) Aged Out 08/19/2022 No longer eligible based on patient's age to complete this topic Insurance [facility] MEDICAID Advance Directives Documents on File Type Date Recorded Patient Bell Ringer Expl anation Power of Photoengraving Proofer Apprentice 08/21/2020 6:37 PM 2018 Care Teams Bell Ringer Relationship Specialty Start Date End Date Reji Lu [address] [place] [phone] PCP - General Internal Medicine 01/19/25
--- OUTSIDE RECORDS SUMMARY | 2025-01-24 06:33 | XMS_ITS | Data Portability ---
Author Organization [facility] Address [address] [place] [address] Care Team Providers Care Buffing Wheel Operator Name Role Phone MARIANO MATA Primary Care Provider Assessment Encounter Date Assessment [...] 11/06/2020 Opened in error, unable to reach [facility] [email or web address] Not available 11/06/2020 10:35:14 11/07/2020 11/07/2020 Brief [...] after care of this patient according to [facility] infection prevention protocols. Time On Scene with Patient: 00:41:04 amita Not available 11/07/2020 20:14:06 03/26/2021 03/26/2021 Proper Personal Protective Equipment (PPE), including gloves, gown, shoe covers, eye protection and Envo masks were donned and doffed appropriately and all equipment cleaned using approved technique with germicidal disposable wipes prior to and after care of this patient according to [facility]'s infection prevention protocols. Overview/History: 40 yo male w/PMHx of MS, neurogenic bladder s/p suprapubic catheter, wheelchair mobility, seizures, dysphagia, substance abuse, smoker, psoriasis. snf staff states the patient has nasal congestion [...] CoV-2 SAULO collected to be sent to [facility] for analysis. Discussed the patient does not have to self-quarantined per [facility] because he is fully vaccinated and boostered against COVID and has no known sick contacts. COVID test results should be completed in 2 to 4 days, you will receive a phone call with positive results, no call for negative results. Patient and senior care staff endorse understanding and agrees with this plan. In order to obtain further information and compare any laboratory results/values, I have accessed patient records on the [employer]. This information was pertinent in my medical decision making today. [email or web address] Not available 03/26/2021 17:28:01 Plan of Treatment Reminders Order Date Submit Date Provider Last Modified By Organization Details Last Modified Time Details Appointments None recorded. Lab unlisted lab - covid-19 (novel coronavirus ) PCR 2021 [email or web address] ([facility] Order[facility] - All Locations), Patient Can Go To The Location Of Their Choice, [id number] 2 18:27:45 unlisted lab - urinalysis w/reflex culture 2020 021 [facility]alls [facility] (Centralized Electronic Ordering - All Locations), Patient Can Go To The Location Of Their Choice, [id number] 12:02:43 Referral None recorded. Procedures None recorded. Surgeries None recorded. Imaging None recorded. Medication Orders triamcinolo ne acetonide 0.025 % topical ointment 2020 021 [facility], [address] [place] [address], [address], [id number], 19:56:42 Refresh P.M. 57.3 %-42.5 % eye ointment 2020 [facility], [address] [place] [address], [id number], 19:56:44 Artificial Tears (glycerin-p eg) 1 %-0.3 % eye drops [address] [facility], [address] [place] [address], [address], [id number], 19:56:46 Patient TargetsNo targets recorded. Patient Instructions Encounter Date Encounter Id Patient Instructions Last Modified By Organization Details Last Modified Time 09/20/2020 [id number] [facility] came to the senior care to evaluate Noe for a problem with [...] suprapubic catheter is not always possible with [facility]. IT is provider dependent. If there are fevers, chills or you feel he is worse, please call 911 and go to the ED> Not available 09/20/2020 15:37:53 11/07/2020 [id number] psoriasis: care instructions [email or web address] 5 Not available 11/07/2020 19:49:34 dry eyes: care instructions [email or web address] 5 Not available 11/07/2020 19:49:29 Please follow up with your primary care provider or specialist at next available appointment to be rechecked or seek medical attention if your symptoms do not go away or get worse. If you have additional concerns or develop a change in your condition between 8am-10pm, please call [facility] at [phone] to help navigate your care. [email or web address] 5 Not available 11/07/2020 19:50:03 03/26/2021 [id number] Inhaler Instructions Before use, you need to prime the inhaler: Take the cap off the mouthpiece and put the inhaler in the spacer Shake the inhaler for 5 seconds Hold the inhaler upright with 1 finger on the top of the canister, the thumb on the bottom of the inhaler, and your other hand holding the spacer Express a large breath Close lips around spacer Press down on the canister After you press down on the canister, breathe (or have your child breathe in) deeply and slowly and hold your breath for 10 seconds Take out of your mouth and slowly exhale If you were instructed to take 2 puffs of the inhaler, wait one minute before you give the second puff. Shake the inhaler again before the second puff. If the inhaler is a steroid medicine (also called a g lucocorticoid or c orticosteroid ), rinse out your mouth, gargle, and spit out the water Cleaning: If you use the inhaler every day, you need to clean it at least once a week. If you use less often, clean the inhaler when you see powder in or around the hole. To clean an inhaler: Remove the canister and cap from the mouthpiece. Do not wash the canister or put the canister under water. Run warm water through the mouthpiece for 30 to 60 seconds Shake the water off of the mouthpiece and let it air dry Clean the spacer every 1-2 weeks. First, remove the inhaler from the spacer. Wash the spacer with warm water and dishwashing soap, but do NOT rinse it. Then let it air dry. Leaving the spacer a little soapy after cleaning actually helps it work better. [email or web address] Not available 03/26/2021 17:02:00 Reason for Referral None Reported. Results Created Date Observation Date Name Description Value Unit Range Abnormal Flag Note LastModifiedBy Organization Detail LastModifiedTime 09/21/1909/24/2020 URINE CULTU RE specimen description URINE Not Available [facility] (Centralized Electronic Ordering - All Locations) Patient Can Go To The Location Of Their Choice, [id number] 09/24/2020 14:40:30 09/21/1909/24/2020 URINE CULTU RE special requests NONE Not Available [facility] (Centralized Electronic Ordering - All Locations) Patient Can Go To The Location Of Their Choice, 09/24/2020 14:40:30 09/21/1909/24/2020 URINE CULTU RE culture >100,0 00 COL/ML [...] Go To The Location Of Their Choice, [id number] 09/24/2020 14:40:30 09/21/1909/24/2020 URINE CULTU RE piperacillin /tazobactam PIPERA CILLIN /TAZOB AC SUSCEP TIBLE susceptib le Not Available [facility] (Centralized Electronic Ordering - All Locations) Patient Can Go To The Location Of Their Choice, [id number] 09/24/2020 14:40:30 09/21/19 21 09/24/2020 URINE CULTU RE trimeth/sulf amethox TRIMET H/SULF AMETHO X SUSCEP TIBLE susceptib le Not Available [facility] (Centralized Electronic Ordering - All Locations) Patient Can Go To The Location Of Their Choice, [id number] 09/24/2020 14:40:30 09/21/19 21 09/24/2020 URINE CULTU RE tetracycline TETRAC YCLINE RESIST ANT resistant Not Available [facility] (Centralized Electronic Ordering - All Locations) Patient Can Go To The Location Of Their Choice, [id number] 09/24/2020 14:40:30 03/26/19 22 03/29/20212018 NOVEL CORON [...] Disea se Contr ol and preve ntion (CDC) pre depar ture and arriv al requi remen t for viral test for COVID -19 dated 2020. Testi ng requi remen ts for romina cash e with time. The patie nt is respo nsibl e for deter minin g the test requi remen ts for each natio n while they are adali . = This test has been autho rized by the FDA under an Emerg ency Use Autho rizat ion (EUA) for use by autho rized labor atori es. = Pleas e revjose w the Fact Sheet s and FDA autho rized label ing avail able for healt h care provi ders and patie nts using the follo wing websi elva: https :// w.que stdia gnost ics.c om/ho me/Co vid-1 9/HCP /Ques tIVD/ fact- sheet .html https ://ww w.que stdia gnost ics.c om/ho me/Co vid-1 9/Pat ients / [facility] IVD/f act-s heet. html Due to the curre nt publi c healt h emerg ency, freee Diagn ostic s is accep ting sampl [...] addit ional speci men. Addit ional infor john holt about COVID -19 can be found at the [facility] Diagn ostic s websi te: www.Sitefly uestD GillBus .GenSpera/ Covid 19. = Test Perfo rmed by: [employer], [address] [place]. [address] . Labor atory Direc tor: Sridevi nettles MD. Not Available [facility] (Centralized Electronic Ordering - All Locations) Patient Can Go To The Location Of Their Choice, [id number] 03/29/2021 05:52:14 Result Notes None recorded. Procedures Surgical History Date Name Laterality Status Provider Name and Address Organization Details Recorded Time Cmghee Catheter Insertion - completed CAMACHO BAILEY NP [address] [place], [address], [place] [facility] 09/20/2020 17:24:40 Imaging Results None recorded. Procedure Notes None recorded. Medical Equipment None Reported. Allergies Allergen ID Allergen Name Allergen Category Reaction Reaction Severity Criticality Documentation Date Start Date Code Code System Note Provider Name and Address Organization Details Recorded Time [id number] honey bee venom medicatio n Not available Not available Not available 09/20/2020 [id number] RxNorm CAMACHO ABILEY, T[place] [address] [place], [address], [place] [facility] 15:30:02 Medications Name Sig Start Date Stop [...] Not Available Vitals Date Recorded Heart rate Body temperature Respiratory rate Oxygen saturation Oxygen saturation in Arterial blood by Pulse oximetry Systolic And Diastolic Provider Name and Address Organization Details Last Updated DateTime 2 88 /min 97 [degF] 14 /min 98 % 98 % 130/80 mm[Hg] Not Available [facility] 17:13:03 Date Recorded Heart rate Respiratory rate Body temperature Oxygen saturation Oxygen saturation in Arterial blood by Pulse oximetry Systolic And Diastolic Provider Name and Address Organization Details Last Updated DateTime 1 89 /min 18 /min 98.9 [degF] 93 % 93 % 144/82 mm[Hg] Not Available [facility] 14:55:02 Date Recorded Body temperature Respiratory rate Oxygen saturation Oxygen saturation in Arterial blood by Pulse oximetry Heart rate Oxygen saturation Oxygen saturation in Arterial blood by Pulse oximetry Heart rate Body temperature Respiratory rate Systolic And Diastolic Systolic And Diastolic Provider Name and Address Organization Details Last Updated DateTime 96.2 [degF] 16 /min 97 % 97 % 80 /min 97 % 97 % 80 /min 96.2 [degF] 16 /min 118/80 mm[Hg] 118/80 mm[Hg] Not Available [facility] 19:41:03 Social History Question Answer Notes LastModified by [employer] Details LastModified Time Tobacco Smoking Status Current Some Day Smoker BRET OMNZON, T[place] [address], [place], [address], [place] [facility] 11/07/2020 19:39:56 What Is Your Code Status? Full Code [email or web address] Information not available 11/07/2020 Fall Risk: Do You Feel Unsteady When Standing Or Walking? Yes [email or web address] Information not available 11/07/2020 Excessive Alcohol Or Drug Use No [email or web address] Information not available 11/07/2020 Does This Patient Have A PCP? Yes [email or web address] Information not available 11/07/2020 How Many Years Have You Smoked Tobacco? 20 [email or web address] Information not available 11/07/2020 Sex: Unknown Functional Status Question Answer Note LastModified by [employer] Details LastModified Time Do you use any illicit or recreational drugs? No [email or web address] Information not available 11/07/2020 Do you or have you ever used any other forms of tobacco or nicotine? No [email or web address] Information not available 11/07/2020 What is your level of alcohol consumption? None [email or web address] Information not available 11/07/2020 Mental Status None recorded. Family History Relationship Description Onset Age of this Age Resolved Age Notes LastModified by Organization Details LastModified Time Father No current problems or disability [email or web address] Not available 0 11/07/2020 19:38:39 Mother No current problems or disability [email or web address] Not available 0 11/07/2020 19:38:39 Notes:Pt denies FH Medical History Condition Response Coronary Artery Disease N Stroke N Asthma N High Cholesterol N Pulmonary Embolism N Hypertension N Kidney Disease N Past Encounters Encounter ID Performer Location Encounter Start Date Encounter Closed Date Diagnosis/Indication Diagnosis SNOMED-CT Code Diagnosis ICD10 Code Diagnosis IMO Codes Diagnosis Note [id number] CAMACHO BAILEY NP [facility] [address] [place] [address] 09/20/2020 14:54:22 09/23/2020 18:41:47 Mechanical complication of suprapubic catheter 430966539 T83.198A [id number] GABY BUTLER, TIN [facility] [address] [place] [address] 11/06/2020 10:21:09 11/06/2020 15:09:11 [id number] BRET MONZON NP [facility] [address] [place] [address] 11/07/2020 19:06:33 11/08/2020 21:41:04 Psoriasis of face 733219642 L40.9 acute on chronic Adverse re action to drug 31803396 T50.905A Dry eyes 542522827 H04.1 29 [id number] DERECK SALINAS NP [facility] [address] [place] [address] 03/26/2021 17:01:05 03/31/2021 11:43:30 Exposure to communicable disease 654699927 Z20.9 Health Concerns Section Related Observation LastModified by Organization Detai ls LastModified Time None Recorded Concern Status LastModified by Organization Details LastModified Time None Recorded Advance Directives Directive None Recorded Payers Insurance Date Sequence Insurance Name Policy Number Policy Covered Member ID Member ID Guarantor Name 09/19/2020 1 *SELF PAY* Noe Vieira [id number] Noe Vieira 03/26/2021 2 [place] Noe Vieira [id number] Noe Vieira 09/23/2020 1 [facility] (MEDICAID HMO) Noe Vieira [id number] Noe Vieira 03/31/2021 1 [place] Noe Vieira [id number] Noe Vieira Notes Date Note Type Note Provider Name and Address Organization Details Recorded Time 09/20/2020 text/html 39 year-old male with history of progressive MS, wheelchair bound ,suprapubic catheter, substance abuse, chronic methadone use for pain control, whose staff calls to the senior care to evaluate patient's suprapubic catheter.Pt had a [...] been acting his norm per staff of senior care.Pt denies any difficulty in breathing and has no complaints. CAMACHO BAILEY NP [address], [place], [address], [place] [facility] 09/20/2020 17:34:37 11/06/2020 text/html Opened in error, unable to reach [facility] GABY BUTLER NP [address] [place], [address], [place] [facility] 11/06/2020 10:35:31 11/07/2020 text/html [...] EOM but his eyes feel dry. BRET MONZON, TIN [address], [place], [address], [place] [facility] 11/07/2020 20:14:13 03/26/2021 text/html General HPI Template - DHReported by Patient 40 yo male who is known to but new to this provider. Patient's PMHx includes MS, neurogenic bladder s/p suprapubic catheter, wheelchair mobility, seizures, dysphagia, substance abuse, smoker, psoriasis; he resides in a senior care setting. snf staff endorse the patient has been experiencing congestion, with increased sniffling for the last two days; he is vacc., and boostered against COVID 19; deny any active COVID residents in building. Patient denies fever, chills, eye/ear pain, changes in vision, chest pain, palpitations, abdominal pain, N/V/D. DERECK SALINAS NP [address], [place], [address], [place] [facility] 03/26/2021 20:11:33
--- OUTSIDE RECORDS SUMMARY | 2025-01-24 06:33 | XMS_ITS | Encounter Summary ---
Author Organization [facility] Address [address] [place] [address] Care Team Providers Care Cutter Brake Lining Name Role Phone Reji Lu Primary Care Provider [phone] Reason for Visit * Reason Onset Date Comments Reschedule 04/01/2021 Encounter Details Date Type Department Care Team (Late st Contact Info) Description 04/01/2021 Telephone [facility] Central Scheduling Department [address] [place] [place] [address] Telephone Intake, Staff Reschedule Social History Tobacco [...] Augustine - 04/01/2021 3:49 PM EST Amy General Inspector rescheduling pt's MS appt for 04/03 with Isaac Hugo MD Per DT, rescheduled appt for 09/[address] Hugo documented in this encounter Plan of Treatment Not on file documented as of this encounter Visit Diagnoses Not on filedocumented in this encounter Care Teams Cutter Brake Lining Relationship Specialty Start Date End Date TabithaReji [address] [place] [address] PCP - General Internal Medicine 01/19/25 documented as of this encounter
--- OUTSIDE RECORDS SUMMARY | 2025-01-24 06:33 | XMS_ITS | Encounter Summary ---
Author Organization [facility] Address [address] [place] [address] Care Team Providers Care Vice President Of Business Development Name Role Phone Reji Lu Primary Care Provider [phone] Encounter Details Date Type Department Care Team (Late st Contact Info) Description 07/15/2021 Telephone [facility] Central Scheduling Department [address] [place] [address] Telephone Intake, Staff Social History Tobacco Use [...] Hugo Caregiver reqs prescription be refilled at [facility] [phone] Sending TE to [facility] Mutiple Sclerosis Clinical Staff per DT to please obtain order from provider and send to above named pharmacy documented in this encounter Plan of Treatment Not on file documented as of this encounter Visit Diagnoses Not on filedocumented in this encounter Care Teams Vice President Of Business Development Relationship Specialty Start Date End Date Reji Lu [address] [place] [address] PCP - General Internal Medicine 01/19/25 documented as of this encounter
--- OUTSIDE RECORDS SUMMARY | 2025-01-24 06:33 | XMS_ITS | Encounter Summary ---
Author Organization [facility] Address [address] [place] [address] Care Team Providers Care Wire Strander Name Role Phone Reji Lu Primary Care Provider [phone] Reason for Visit * Reason Onset Date Comments Fax Referral 07/29/2020 Encounter Details Date Type Department Care Team (Late st Contact Info) Description 07/29/2020 Telephone [facility] Central Scheduling Department [address] [place] [address] Telephone Intake, Staff Fax Referral Social History [...] She states that she has power of corporate associate attorney. Noe will be coming to the initial visit with someone from his intermediate, but she is unable to attend the first visit. She will have the intermediate bring 1. Copy of power of corporate associate attorney, 2. MRI results report from [facility] 2017. 3. Medication list, 4. Most recent PCP note. (she does not know PCP's name at the moment.) I have sent her the [employer] link, so that she can also send us records thru [employer]. His mother adds that he is a poor historian. * Telephone Encounter - Nickolas Sam - 07/29/2020 1:16 PM EDT [facility] has medical records of pt Pt's mother said the most recent MRI was in September 2016. To obtain this, mother said she was having difficult time. [facility] wants [facility] to fax them a request and they will send records. [facility] fax number: [phone] documented in this encounter Plan of Treatment Not on file documented as of this encounter Visit Diagnoses Not on filedocumented in this encounter Care Teams Wire Strander Relationship Specialty Start Date End Date Reji Lu [address] [place] [address] PCP - General Internal Medicine 01/19/25 documented as of this encounter
--- NOTE | 2025-01-24 06:37 | ED.GENADULT ---
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 Related Data Home Medications ?Medication ?Instructions ?Recorded ?Confirmed alpha lipoic acid 600 mg tablet 600 mg PO BID 08/29/22 12/07/24 fluticasone propionate 50 1 spray intranasal Q4H PRN 01/21/23 12/07/24 mcg/actuation nasal Congestion spray,suspension sodium phosphates 19 gram-7 118 ml SC DAILY PRN BM 08/30/23 12/07/24 gram/118 mL enema (Fleet Enema) epinephrine 0.3 mg/0.3 mL 0.3 mg IM Q15M PRN Anaphylaxis 02/27/24 12/07/24 injection, auto-injector gabapentin 100 mg capsule 200 mg PO TID 02/27/24 12/07/24 polyethylene glycol 3350 17 17 g feeding tube DAILY 02/27/24 12/07/24 gram/dose oral powder doxycycline hyclate 100 mg 100 mg IV Q12H 04/13/24 12/07/24 intravenous powder for solution ketoconazole 2 % topical cream 1 appl topical BID 04/13/24 12/07/24 triamcinolone acetonide 0.025 % 1 appl topical BID 04/13/24 12/07/24 topical cream cetirizine 10 mg tablet 10 mg PO DAILY 12/07/24 12/07/24 cholecalciferol (vitamin D3) 50 50 mcg PO DAILY 12/07/24 12/07/24 mcg (2,000 unit) tablet levetiracetam 500 mg tablet 500 mg PO BID 12/07/24 12/07/24 melatonin 5 mg disintegrating 5 mg PO BEDTIME 12/07/24 12/07/24 tablet sennosides 8.6 mg tablet (senna) 17.2 mg PO BID 12/07/24 12/07/24 Previous Rx's ?Medication ?Instructions ?Recorded bisacodyl 10 mg rectal suppository 10 mg SC DAILY PRN constipation 08/21/23 (Dulcolax (bisacodyl)) #12 ea acetaminophen 325 mg tablet 650 mg (2 x 325 mg) feeding tube 09/01/23 Q8H PRN Fever Or Pain #30 tabs amitriptyline 100 mg tablet 100 mg feeding tube BEDTIME #30 09/01/23 tabs atorvastatin 10 mg tablet 10 mg feeding tube BEDTIME #30 tabs 09/01/23 baclofen 10 mg tablet 40 mg (4 x 10 mg) feeding tube TID 09/01/23 #30 tabs famotidine 20 mg tablet 20 mg feeding tube BID #30 tabs 09/01/23 magnesium hydroxide 400 mg/5 mL 30 ml feeding tube DAILY PRN 09/01/23 oral suspension (Milk of Magnesia) Constipation #355 mL metoprolol tartrate 25 mg tablet 25 mg G-tube BID #60 tabs 09/01/23 doxycycline monohydrate 100 mg 100 mg feeding tube DAILY PRN 05/03/24 tablet CATHETER CHANGE #30 tabs ascorbic acid (vitamin C) 500 mg 500 mg feeding tube BID 90 days 01/04/25 tablet (Vitamin C) #180 tabs methenamine hippurate 1 gram tablet 1 g feeding tube DAILY 90 days #90 01/04/25 tabs Allergies Allergy/AdvReac Type Severity Reaction Status Date / Time bee pollen (BEE STINGS) Allergy Severe Anaphylaxis Verified 01/24/25 06:15 Review of Systems Constitutional: Constitutional: Reports as per [facility] Past Medical History Medical History Constipation History of substance abuse Former smoker GERD (gastroesophageal reflux disease) HTN (hypertension) GI bleed Hepatitis B Anemia Afib Failure to thrive in adult Seizures Neuromyopathy UTI (urinary tract infection) Suprapubic catheter Hepatitis C Multiple sclerosis Surgical History Hx of cystoscopy Social History Social History Household Members: Other Household Members Other:: Correction Housing: Other Housing Other:: Correction Do you presently have visiting nurse or other home services: Yes Alcohol intake: never Comment: detention staff at bedside Patient Tobacco Use Status: Former Tobacco user Tobacco use type: Cigarette Smoked in Last 30 Days: No e-Cigarette/Vaping Use: Never Used Second Hand Smoke Exposure: No Use of substances other than those prescribed or required for medical reasons: No Advance Directives: Yes Advance Directives on File: Yes Advance Directives Date on File: 09/02/23 service: No Current occupational status: disabled Physical Exam ED Exam Exam: General: ?Nonverbal bed-bound at baseline ? ?no scleral icterus ? Neck: Supple, no LAD ? ?Resp: ?No wheezing rales rhonchi no stridor moving air well ? Abd: ?Bowel sounds are present, no distention, G-tube insertion site with minimal amount of blood ? ?Neuro: ?Alert, bed-bound, contractures upper and lower extremities Vital Signs: Vital Signs - 24 hr 01/24/25 06:19 Temperature 97.9 F Pulse Rate 83 Respiratory Rate 16 Blood Pressure 119/86 Pulse Oximetry 99 Oxygen Delivery Method Room Air BMI result Body Mass Index 29.1 Medical Decision Making Medical Decision Making MDM Narrative: 6:47 AM 01/24/2025 (Dr. Rainer Watkins): 44-year-old male nonverbal at baseline, multiple sclerosis, has a G-tube and suprapubic tube, G-tube was misplaced and they replaced it at bedside Differential Diagnosis Differential Diagnoses: The differential diagnosis associated with the presentation includes (SBO, abscess, cellulitis) Admission/Observation Consideration of admission/observation: Escalation of care including admission/observation considered Independent Interpretation I performed an independent interpretation of an: Plain X-Ray (Contrast noted in duodenal and jejunal junction) Radiology Impression Discussion of test interpretation with radiology: I have reviewed the radiologist's reading. Independent Historian Clinical information obtained from an independent historian. History obtained from or confirmed by: EMS and Other ([facility] staff) Tests considered The following testing was considered but not selected: CBC, chemistry Prescription Management I considered prescription management with: Antibiotic Chronic Conditions Patient?s care impacted by: Other (Multiple sclerosis) Discharge Plan Discharge Clinical Impression: Gastrojejunostomy tube dislodgement Additional Instructions: Twenty [place] G-tube is replaced, cleared for use We will be discharged back to detention no other changes in care Prescriptions: No Action doxycycline monohydrate 100 mg tablet 100 mg feeding tube DAILY PRN (Reason: CATHETER CHANGE) Qty: 30 6RF Rx Instructions: 200 mg PO On day of catheter change; 1 tab before cath change and 1 tab after cath change; alpha lipoic acid 600 mg Tablet 600 mg PO BID fluticasone propionate 50 mcg/actuation [place],Suspension 1 spray INTRANASAL Q4H PRN (Reason: Congestion) Rx Instructions: administer into each nostril bisacodyl [Dulcolax (bisacodyl)] 10 mg suppository 10 mg SC DAILY PRN (Reason: constipation) Qty: 12 0RF Rx Instructions: If no BM in 3 days. gabapentin 100 mg capsule 200 mg PO TID epinephrine 0.3 mg/0.3 mL Auto-Injector 0.3 mg IM Q15M PRN (Reason: Anaphylaxis) Rx Instructions: for 2 doses polyethylene glycol 3350 17 gram/dose powder 17 g feeding tube DAILY Fleet Enema 19-7 gram/118 mL Enema 118 ml SC DAILY PRN (Reason: BM) Rx Instructions: If no BM in 3 days acetaminophen 325 mg Tablet 650 mg feeding tube Q8H PRN (Reason: Fever Or Pain) Qty: 30 0RF atorvastatin 10 mg tablet 10 mg feeding tube BEDTIME Qty: 30 0RF famotidine 20 mg Tablet 20 mg feeding tube BID Qty: 30 0RF magnesium hydroxide [Milk of Magnesia] 400 mg/5 mL Suspension 30 ml feeding tube DAILY PRN (Reason: Constipation) Qty: 355 0RF baclofen 10 mg tablet 40 mg feeding tube TID Qty: 30 0RF amitriptyline 100 mg Tablet 100 mg feeding tube BEDTIME Qty: 30 0RF metoprolol tartrate 25 mg Tablet 25 mg G-tube BID Qty: 60 0RF Protocol: Hold for SBP/HR < HOLD for SBP < : 90 HOLD for HR < : 60 sennosides [senna] 8.6 mg tablet 17.2 mg PO BID cetirizine 10 mg tablet 10 mg PO DAILY levetiracetam 500 mg tablet 500 mg PO BID cholecalciferol (vitamin D3) 50 mcg (2,000 unit) tablet 50 mcg PO DAILY melatonin 5 mg tablet,disintegrating 5 mg PO BEDTIME methenamine hippurate 1 gram tablet 1 g feeding tube DAILY 90 Days Qty: 90 1RF ascorbic acid (vitamin C) [Vitamin C] 500 mg tablet 500 mg feeding tube BID 90 Days Qty: 180 1RF ketoconazole 2 % cream 1 appl topical BID triamcinolone acetonide 0.025 % cream 1 appl topical BID doxycycline hyclate 100 mg recon soln 100 mg IV Q12H Print Language: Hungarian
[2025-01-24 08:28] VITALS: BP 127/82; PULSE 90; RESP 18; TEMP 36.7; O2SAT 99
[2025-01-24 09:12] VITALS: BP 127/82; PULSE 90; RESP 18; TEMP 36.7; O2SAT 99
== END 2025-01-24 09:15 | disposition home or self-care (01) ==
PROVIDERS: Emergency Provider Emergency Medicine; PCP Internal Medicine
DX: T85.528A Displacement of other gastrointestinal prosthetic devices, implants and grafts, initial encounter (principal); G35.D Multiple sclerosis, unspecified; I10 Essential (primary) hypertension; Y83.3 Surgical operation with formation of external stoma as the cause of abnormal reaction of the patient, or of later complication, without mention of misadventure at the time of the procedure; Y92.9 Unspecified place or not applicable; Z93.50 Unspecified cystostomy status; Z74.01 Bed confinement status
CPT/HCPCS: 43762; 74018; 99284

== ENCOUNTER → 2025-01-24 06:39 | Outpatient (BNV) | payer OTHER, SELFPAY | PROVIDERS: Emergency Provider Emergency Medicine; PCP Internal Medicine; Visit Provider Radiology Diagnostic Radiology | DX: Z43.1 Encounter for attention to gastrostomy (principal) | CPT/HCPCS: 74018 ==

== ENCOUNTER 2025-02-09 21:17 | Inpatient (IN) | payer OTHER, SELFPAY ==
--- OUTSIDE RECORDS SUMMARY | 2025-02-03 23:59 | XMS_ITS | Continuity of Care Document ---
Author Organization [facility] Dane Levy Rodolfo lt Address [address] [place] [address]- Care Team Providers Care [employer]aking [employer] Worker Name Role Phone Tabitha FRANZ, Reji Montes Primary Care Physician [place] [facility] [place]): 01/04/25 - 02/03/25 [facility] Adult [address] [place] [address]- Encounter Type: Triage Allergies, Adverse Reactions, Alerts Substance Criticality Severity Reaction Reaction Severity Status Bee Stings Active Immunizations Given and Recorded Vaccine Date Status Refusal Reason SARS-CoV-2(COVID-19)mRNA-LNP vac([id number]) 07/10/24 Recorded influenza virus vaccine, inactivated 05/19/24 Leonidas rded influenza virus vaccine, inactivated 02/25/23 Leonidas rded influenza virus vaccine, inactivated 01/22/23 Leonidas rded influenza virus vaccine, inactivated 01/02/22 Leonidas rded influenza virus vaccine, inactivated 12/03/19 Leonidas rded pneumococcal 20-valent conjugate vaccine 08/19/22 Given [id number] 12y+ bivalent booster vax 01/02/22 Recorded tetanus/diphtheria/pertussis, acel(Tdap) 07/18/21 Given SARS-CoV-2 (COVID-19) mRNA-1273 vaccine 01/31/21 R ecorded SARS-CoV-2 (COVID-19) mRNA BNT-162b2 vac 04/17/20 Recorded SARS-CoV-2 (COVID-19) mRNA BNT-162b2 vac 03/27/20 Recorded Medications acetaminophen 325 mg oral tablet See Instructions, PRN, Take 2 tablets via G-Tube every 8 hours as needed for headache/mild pain or fever over 100F, # 100 tablet, Refills 11, Tot. Refills 11, Maintenance, as needed for fever, 12/13/24 11:59:00 AM EDT, Instructions Replace Required Details, Route to Pharmacy Electronically, [facility], Partial fill upon patient request if the prescription is for a schedule II opioid drug., 178, cm, 10/06/24 11:08:00 EDT, Height Start Date: 12/13/24 Status: Ordered Medication Dispense Status: Completed Quantity: 100.0 Unit: tablet Total Allowed Fills: 12 Fills Dispensed: 0 amitriptyline 100 mg oral tablet 1 tablet = 100 mg, G Tube, Daily at bedtime, # 90 tablet, 1 Refills, Maintenance, 08/05/25 4:16:00 PM EDT, Tablet, [facility], 178, cm, 10/06/24 11:08:00 EDT, Height Start Date: 08/05/25 Stop Date: 02/01/26 Status: Ordered Medication Dispense Status: Completed Quantity: 90.0 Unit: tablet Total Allowed Fills: 2 Fills Dispensed: 0 Indications: Major depressive disorder, single episode, mild; amitriptyline 100 mg oral tablet 1 tablet = 100 mg, G Tube, Daily at bedtime, for 90 days, # 90 tablet, 2 Refills, Hard Stop :16:00 PM EDT, 11/08/24 4:16:00 PM EDT, Tablet, [facility], 178, cm, 03/20/24 10:45:00 EST, Height Start Date: 11/08/24 Stop Date: 08/05/25 Status: Ordered Medication Dispense Status: Completed Quantity: 90.0 Unit: tablet Total Allowed Fills: 3 Fills Dispensed: 0 Indications: Major depressive disorder, single episode, mild; atorvastatin 10 mg oral tablet 1 tablet = 10 mg, By Mouth, Daily, (after supper), # 90 tablet, 3 Refills, Maintenance, 12/08/24 4:15:00 PM EDT, [facility], Partial fill upon patient request if the prescription is for a schedule II opioid drug., 178, cm, 10/06/24 11:08:00 EDT, Height Start Date: 12/08/24 Stop Date: 01/07/25 Status: Ordered Medication Dispense Status: Completed Quantity: 90.0 Unit: tablet Total Allowed Fills: 4 Fills Dispensed: 0 baclofen 10 mg oral tablet 1 tablet = 10 mg, By Mouth, 0 Refills, Maintenance, 06/21/11 2:34:18 AM EDT Start Date: 06/21/11 Status: Ordered Medication Dispense Status: Completed Total Allowed Fills: 1 Fills Dispensed: 0 Boost Nutrirional DRink Boost Nutrirional DRink, See Instructions, # 90 each, Refills 0, Tot. Refills 0, Maintenance, Give 1 bottle twice-three times daily Dx: Abnormal Weight Loss Failure to thrive, 05/17/23 2:20:00 PM EST, Supply, 178, cm, 08/19/22 11:20:00 EDT, Height Start Date: 05/17/23 Status: Ordered Medication Dispense Status: Completed Quantity: 90.0 Unit: each Total Allowed Fills: 1 Fills Dispensed: 0 Dilantin 100 mg oral capsule, extended release 3 capsule = 300 mg, By Mouth, Daily at bedtime, # 270 capsule, 0 Refills, Maintenance, 07/08/20 1:34:00 PM EDT, [facility], Partial fill upon patient request if the prescription is for a schedule II opioid drug. Start Date: 07/08/20 Status: Ordered Medication Dispense Status: Completed Quantity: 270.0 Unit: capsule Total Allowed Fills: 1 Fills Dispensed: 0 Dulcolax 10 mg rectal suppository See Instructions, PRN as needed for constipation, 10 mg supp prn if no BM in 3 days rectally, # 10 supp, 3 Refills, Maintenance, 10/02/24 8:00:00 AM EDT, Suppository, [facility], Partial fill upon patient request if the prescription is for a schedule II opioid drug., 178, cm, 05/29/24 13:37:00 EDT, Height Start Date: 10/02/24 Status: Ordered Medication Dispense Status: Completed Quantity: 10.0 Unit: supp Total Allowed Fills: 4 Fills Dispensed: 0 EpiPen 2-Cesar 0.3 mg injectable kit = 0.3 mg, Intramuscular, Once, as needed for anaphylaxis, # 2 each, 4 Refills, Soft Stop, 03/20/24 11:32:00 AM EST, [facility], 178, cm, 03/20/24 10:45:00 EST, Height Start Date: 03/20/24 Status: Ordered Medication Dispense Status: Completed Quantity: 2.0 Unit: each Total Allowed Fills: 5 Fills Dispensed: 0 Indications: Bee allergy status; Extra Large Adult Briefs Extra Large Adult Briefs, See Instructions, # 100 each, Refills 11, Tot. Refills 11, Maintenance, Apply Extra Large Adult briefs up to three times a day when not in bed., 03/20/24 11:10:00 AM EST, Supply, 178, cm, 03/20/24 10:45:00 EST, Height Start Date: 03/20/24 Status: Ordered Medication Dispense Status: Completed Quantity: 100.0 Unit: each Total Allowed Fills: 12 Fills Dispensed: 0 Indications: Neuromuscular dysfunction of bladder, unspecified; Full incontinence of feces; famotidine 20 mg oral tablet See Instructions, 1 tablet twice dialy via G-tube, # 60 tablet, Refills 5, Tot. Refills 5, Maintenance, 02/02/25 4:35:00 PM EST, Instructions Replace Required Details, Route to Pharmacy Electronically, [facility], Partial fill upon patient request if the prescription is for a schedule II opioid drug., 178, cm, 10/06/24 11:08:00 EDT, Height Start Date: 02/02/25 Status: Ordered Medication Dispense Status: Completed Quantity: 60.0 Unit: tablet Total Allowed Fills: 6 Fills Dispensed: 0 Fleet Enema 19 gm-7 gm rectal enema See Instructions, PRN as needed for constipation, One enema prn if no BM in 4 days rectally, # 133 mL, 5 Refills, Acute 03/14/25 9:00:00 AM EST, 03/20/24 11:25:00 AM EST, Enema, [facility], One enema prn if no BM in 4 days rectally,PRN:as needed for constipation, 178, cm, 03/20/24 10:45:00 EST, Height Start Date: 03/20/24 Stop Date: 03/14/25 Status: Ordered Medication Dispense Status: Completed Quantity: 133.0 Unit: mL Total Allowed Fills: 6 Fills Dispensed: 0 Indications: Other constipation; gabapentin 100 mg oral capsule 200 mg, 2, capsule, By Mouth, 3 times a day, # 180 capsule, Refills 0, Maintenance, 02/01/24 3:40:00 PM EST, Partial fill upon patient request if the prescription is for a schedule II opioid drug. Start Date: 02/01/24 Status: Ordered Medication Dispense Status: Completed Quantity: 180.0 Unit: capsule Total Allowed Fills: 1 Fills Dispensed: 0 Incontinence Pads/Ultrasorb Pads Incontinence Pads/Ultrasorb Pads, See Instructions, # 60 each, Refills 11, Tot. Refills 11, Maintenance, Apply incontinence pads below patient Twice Daily while in bed to reduce skin irritation and prevent excoriations., 03/20/24 11:16:00 AM EST, Supply, 178, cm, 03/20/24 10:45:00 EST, Height Start Date: 03/20/24 Status: Ordered Medication Dispense Status: Completed Quantity: 60.0 Unit: each Total Allowed Fills: 12 Fills Dispensed: 0 Indications: Other dysphagia; Full incontinence of feces; ketoconazole 2% topical shampoo 1 applicator, Topically, Once, PRN Rash, Apply to affected area 2 to 3 times per week. APply for 5 minutes. Then rinse off. May Discontinue once red/scaly skin resolved., # 120 mL, 5 Refills, Soft Stop, 03/20/24 11:39:00 AM EST, [facility], 1 applicator Topically Once,PRN:Rash,Instr:Apply to affected area 2 to 3 times per week. APply for 5 minutes. Then rinse off. May Discontinue once red/ scaly skin resolved., 178, cm, 03/20/24 10:45:00 EST, Height Start Date: 03/20/24 Status: Ordered Medication Dispense Status: Completed Quantity: 120.0 Unit: mL Total Allowed Fills: 6 Fills Dispensed: 0 Indications: Atopic dermatitis, unspecified; loratadine 10 mg oral tablet 10 mg, 1, tablet, G Tube, Daily, PRN, for 90 days, # 90 tablet, Refills 4, Tot. Refills 4, Acute 06/13/25 11:35:00 AM EDT, Congestion, 03/20/24 11:35:00 AM EST, Route to Pharmacy Electronically, [facility], 178, cm, 03/20/24 10:45:00 EST, Height Start Date: 03/20/24 Stop Date: 06/13/25 Status: Ordered Medication Dispense Status: Completed Quantity: 90.0 Unit: tablet Total Allowed Fills: 5 Fills Dispensed: 0 Indications: Other seasonal allergic rhinitis; Melatonin 5 mg oral tablet 1 tablet = 5 mg, By Mouth, Daily at bedtime, # 90 tablet, 4 Refills, Maintenance, 11/08/24 4:15:00 PM EDT, [facility], 178, cm, 03/20/24 10:45:00 EST, Height Start Date: 11/08/24 Stop Date: 02/01/26 Status: Ordered Medication Dispense Status: Completed Quantity: 90.0 Unit: tablet Total Allowed Fills: 5 Fills Dispensed: 0 Indications: Psychophysiologic insomnia; Metoprolol Tartrate 25 mg oral tablet 1 tablet = 25 mg, By Mouth, 2 times a day, for 90 days, Hold for Systolic BP less than 115 or Pulseless than 60 BPM., # 180 tablet, 1 Refills, Hard Stop 06/13/25 11:46:00 AM EDT, 12/15/24 11:46:00 AM EDT, Tablet, [facility], 178, cm, 04/10/24 11:23:00 EST, Height Start Date: 12/15/24 Stop Date: 06/13/25 Status: Ordered Medication Dispense Status: Completed Quantity: 180.0 Unit: tablet Total Allowed Fills: 2 Fills Dispensed: 0 Indications: Essential (primary) hypertension; Metoprolol Tartrate 25 mg oral tablet 1 tablet = 25 mg, By Mouth, 2 times a day, Hold for Systolic BP less than 115 or Pulse less than 60BPM., # 180 tablet, 3 Refills, Maintenance, 06/13/25 11:46:00 AM EDT, Tablet, [facility], 178, cm, 10/06/24 11:08:00 EDT, Height Start Date: 06/13/25 Status: Ordered Medication Dispense Status: Completed Quantity: 180.0 Unit: tablet Total Allowed Fills: 4 Fills Dispensed: 0 Indications: Essential (primary) hypertension; Milk of Magnesia 8% oral suspension 30 mL = 2.4 Gm, By Mouth, Daily at bedtime, PRN for constipation, # 150 mL, 11 Refills, Maintenance, 08/18/24 2:30:00 PM EDT, [facility], [facility], Partial fill upon patient request if the prescription is for a schedule II opioid drug., 178, cm, 05/29/24 13:37:00 EDT, Height Start Date: 08/18/24 Status: Ordered Medication Dispense Status: Completed Quantity: 150.0 Unit: mL Total Allowed Fills: 12 Fills Dispensed: 0 Misc Durable Medical Equipment See Instructions, Refills 0, Maintenance, Osmolite drink 5 times daily, 04/10/24 11:21:00 AM EST, Supply Start Date: 04/10/24 Status: Ordered Medication Dispense Status: Completed Total Allowed Fills: 1 Fills Dispensed: 0 Misc Rx Misc Rx, 8 ounces, By Mouth, 3 times a day with meals, # 90 each, Refills 11, Tot. Refills 11, Maintenance, 8 oz 3 times daily w/meals or can add to food for nutritional supplementation, 01/28/23 9:04:00 AM EST, Supply, 178, cm, 08/19/22 11:20:00 EDT, Height Start Date: 01/28/23 Status: Ordered Medication Dispense Status: Completed Quantity: 90.0 Unit: each Total Allowed Fills: 12 Fills Dispensed: 0 Mucinex 600 mg oral tablet, extended release 1 tablet = 600 mg, By Mouth, Every 12 hours, # 60 tablet, 11 Refills, Maintenance, 09/04/24 9:11:00 AM EDT, [facility], Partial fill upon patient request if the prescription is for a schedule II opioid drug., 178, cm, 09/01/24 11:06:00 EDT, Height Start Date: 09/04/24 Status: Ordered Medication Dispense Status: Completed Quantity: 60.0 Unit: tablet Total Allowed Fills: 12 Fills Dispensed: 0 Mucinex 600 mg oral tablet, extended release 1 tablet = 600 mg, By Mouth, Every 12 hours, # 60 tablet, 0 Refills, Maintenance, 09/04/24 11:21:00 AM EDT, [facility], Partial fill upon patient request if the prescription is for a schedule II opioid drug., 178, cm, 09/01/24 11:06:00 EDT, Height Start Date: 09/04/24 Status: Ordered Medication Dispense Status: Completed Quantity: 60.0 Unit: tablet Total Allowed Fills: 1 Fills Dispensed: 0 polyethylene glycol 3350 oral powder for reconstitution See Instructions, 17 Gm daily via G-tube, # 510 Gm, 11 Refills, Maintenance, 06/19/24 11:47:00 AM EDT, [facility], 17 Gm daily via G-tube, 178, cm, 05/29/24 13:37:00 EDT, Height Start Date: 06/19/24 Status: Ordered Medication Dispense Status: Completed Quantity: 510.0 Unit: g Total Allowed Fills: 12 Fills Dispensed: 0 Indications: Other constipation; Senna 8.6 mg oral tablet 2, tablet, G Tube, 2 times a day, Stop for Diarrhea, # 360 tablet, Refills 3, Tot. Refills 3, Maintenance, 09/16/24 11:26:00 AM EDT, Route to Pharmacy Electronically, [facility], 178, cm, 09/07/24 13:40:00 EDT, Height Start Date: 09/16/24 Status: Ordered Medication Dispense Status: Completed Quantity: 360.0 Unit: tablet Total Allowed Fills: 4 Fills Dispensed: 0 Indications: Other constipation; Thick-it Thick-it, See Instructions, # 3 each, Refills 6, Tot. Refills 6, Maintenance, Use to thicken liquids before intake, 07/04/21 5:18:00 PM EDT, Supply, 178, cm, 01/31/21 10:05:00 EST, Height Start Date: 07/04/21 Status: Ordered Medication Dispense Status: Completed Quantity: 3.0 Unit: each Total Allowed Fills: 7 Fills Dispensed: 0 Vitamin C 500 mg oral tablet 1 tablet, G Tube, 2 times a day, # 60 tablet, 5 Refills, 02/02/24 11:54:00 AM EST, [facility], 178, cm, 02/01/24 15:43:00 EST, Height Start Date: 02/02/24 Status: Ordered Medication Dispense Status: Completed Quantity: 60.0 Unit: tablet Total Allowed Fills: 6 Fills Dispensed: 0 Vitamin D3 50 mcg (2000 intl units) oral tablet, disintegrating 1 tablet = 50 mcg, G Tube, Daily in AM, # 90 tablet, 2 Refills, Maintenance, 10/24/25 11:48:00 AM EDT, [facility], 178, cm, 10/06/24 11:08:00 EDT, Height Start Date: 01/05/25 Stop Date: 10/02/25 Status: Ordered Medication Dispense Status: Completed Quantity: 90.0 Unit: tablet Total Allowed Fills: 3 Fills Dispensed: 0 Indications: Vitamin D deficiency, unspecified; ZyrTEC 10 mg oral tablet 1 tablet = 10 mg, By Mouth, Daily, # 30 tablet, 11 Refills, Maintenance, 10/06/24 11:24:00 AM EDT, Tablet, [facility], Partial fill upon patient request if the prescription is for a scheduleII opioid drug., 178, cm, 10/06/24 11:08:00 EDT, Height Start Date: 10/06/24 Status: Ordered Medication Dispense Status: Completed Quantity: 30.0 Unit: tablet Total Allowed Fills: 12 Fills Dispensed: 0 Problem List Condition Confirmation Course Effective Dates Status Health Status Informant Bee sting allergy Confirmed Active Mild anemia Confirmed Active Atopic dermatitis Confirmed Active Chronic constipation Confirmed Active Lesion of colon Confirmed Active Decreased hearing Confirmed Active Neurogenic dysphagia Confirmed Active Chronic GERD Confirmed Active History of GI bleed Confirmed Active Hyperlipidemia Confirmed Active Hypertension Confirmed Active Elevated liver function tests Confirmed Active Mild major depression Confirmed Active Neurogenic bladder Confirmed Active Psychophysiological insomnia Confirmed Active Relapsing remitting multiple sclerosis Confirmed Active SDH - Subdural hematoma Confirmed Active Seasonal allergies Confirmed Active Seizure disorder Confirmed Active Vitamin D deficiency Confirmed Active Social History Social History Type Response Sexual Sexually involved in last 6 months: No. Smoking Status Former smoker, quit more than 30 days ago; Other: >1 year; entered on: 08/19/22 Sex Sex Representation Male (finding) Patient Care team information Care Team Personnel Name: Mary Hollins MA Position: [facility] Office Staff Member Role: Primary Care Nurse Name: Reji Lu MD Position: [facility] Physician - Primary Care Member Role: PCP Address: [address] [place] [phone]- Telecom: Care Team Related Persons Name: KORIN KIRKPATRICK Name: VERONA KIRKPATRICK Name: JOE DIAZ Name: NA VINES Insurance Providers Guarantor name: JUANJO KIRKPATRICK Health Plan Information #: 1 Payer: [employer] Payer Identifier: GABBY Member Number: [id number] Group Number: [id number] Subscriber Identifier: GABBY Relationship to Subscriber: self Coverage Type: Medicaid (Managed Care) Coverage Verification Date: GABBY Telecom: GABBY Address: NA
--- NOTE | ~2025-02-09 | XR_ITS ---
CLINICAL HISTORY: Fever; Sepsis 1 view chest Comparison: CR - XR CHEST 2V - 08/26/24 10:42 EDT Findings: Low inspiration. Resultant mild vascular crowding centrally with subsegmental atelectasis. No consolidation or effusion. Heart size at the upper limits. Percutaneous gastrostomy tube is noted, however the tip is not clearly identified. No acute fractures. Impression: 1. Low inspiration with central vascular crowding and subsegmental atelectasis. This document has been electronically signed by: Josh Arredondo MD on 02/09/2025 22:49:53
--- NOTE | ~2025-02-09 | XR_ITS ---
CLINICAL HISTORY: rule out ileus. stool burden, ensure G tube placem Supine abdomen Comparison: CR/SR - XR KUB - 01/24/25 06:39 EST Findings: No extraluminal extravasation of contrast. Gaseous distention of bowel loops throughout the abdomen and pelvis. Gas is seen in the rectum. Impression: 1. Percutaneous gastrostomy tube within the stomach. 2. Generalized gaseous distention of bowel loops favoring an ileus. This document has been electronically signed by: Josh Arredondo MD on 02/10/2025 03:21:00
--- NOTE | ~2025-02-09 | XR_ITS ---
EXAMINATION: XR ABDOMEN KUB CLINICAL INDICATION: f/u ileus COMPARISON: February 10, 2025. TECHNIQUE: AP views in supine position of the abdomen. FINDINGS: There is gas throughout a prominent small bowel large intestine. There is a catheter overlapping the epigastric region. There is no residual oral contrast. There is a suprapubic catheter. Degenerative changes in both coxofemoral joints and symphysis pubis. XR/XR KUB IMPRESSION: Ileus versus colonic pseudoobstruction. Electronically signed by: Adryan Mensah MD 02/13/2025 08:52 AM EST
[2025-02-09 21:26] VITALS: BP 127/87; PULSE 102; O2SAT 95
[2025-02-09 21:27] VITALS: BP 125/88; PULSE 95; RESP 22
[2025-02-09 22:00] VITALS: BP 132/87; PULSE 98; RESP 16; TEMP 37.3; O2SAT 95; BMI 24.8
[2025-02-09 22:15] VITALS: BP 132/81; PULSE 98; RESP 16; TEMP 37.3; O2SAT 94
--- NOTE | 2025-02-09 22:23 | ED.MALEGU ---
HPI - Male Genitourinary General Chief complaint: Urogenital-Male Stated complaint: UTI Time Seen by Provider: 02/09/25 21:37 Source: EMS and old records reviewed Mode of arrival: EMS Limitations: other (Nonverbal status) History of Present Illness ED Provider: Aayush LAYNE HPI Narrative: The patient is a 44 year old non-verbal male with history of hepatitis-C, seizures, and progressive multiple sclerosis resulting in residence in a long-term care facility, largely nonverbal status, spasticity with bed-bound or wheelchair status, neurogenic bladder requiring suprapubic catheter, and frequent UTIs, presenting to the ED via EMS for evaluation of tachycardia and change in responsiveness/mental status over the past 2 days. Staff reports patient is ?less alert than usual? over the past 2 days. The patient's suprapubic catheter reportedly was exchanged at the facility on 01/30; patient received prophylactic doxycycline the morning and evening of the exchange. The patient was also prescribed Bactrim by urology for 5-day prophylaxis, started on the evening of 02/07. Today the patient was noted to be tachycardic to 108 bpm, without hypotension. Staff denies overt cough but does report mild congestion. The patient's G-tube was also recently changed and has had no complications. Majority of HPI obtained from EMS and facility staff due to patient's nonverbal status. Related Data Home Medications ?Medication ?Instructions ?Recorded ?Confirmed alpha lipoic acid 600 mg tablet 600 mg PO BID 08/29/22 12/07/24 fluticasone propionate 50 1 spray intranasal Q4H PRN 01/21/23 12/07/24 mcg/actuation nasal Congestion spray,suspension sodium phosphates 19 gram-7 118 ml NH DAILY PRN BM 08/30/23 12/07/24 gram/118 mL enema (Fleet Enema) epinephrine 0.3 mg/0.3 mL 0.3 mg IM Q15M PRN Anaphylaxis 02/27/24 12/07/24 injection, auto-injector gabapentin 100 mg capsule 200 mg PO TID 02/27/24 12/07/24 polyethylene glycol 3350 17 17 g feeding tube DAILY 02/27/24 12/07/24 gram/dose oral powder doxycycline hyclate 100 mg 100 mg IV Q12H 04/13/24 12/07/24 intravenous powder for solution ketoconazole 2 % topical cream 1 appl topical BID 04/13/24 12/07/24 triamcinolone acetonide 0.025 % 1 appl topical BID 04/13/24 12/07/24 topical cream cetirizine 10 mg tablet 10 mg PO DAILY 12/07/24 12/07/24 cholecalciferol (vitamin D3) 50 50 mcg PO DAILY 12/07/24 12/07/24 mcg (2,000 unit) tablet levetiracetam 500 mg tablet 500 mg PO BID 12/07/24 12/07/24 melatonin 5 mg disintegrating 5 mg PO BEDTIME 12/07/24 12/07/24 tablet sennosides 8.6 mg tablet (senna) 17.2 mg PO BID 12/07/24 12/07/24 Previous Rx's ?Medication ?Instructions ?Recorded bisacodyl 10 mg rectal suppository 10 mg NH DAILY PRN constipation 08/21/23 (Dulcolax (bisacodyl)) #12 ea acetaminophen 325 mg tablet 650 mg (2 x 325 mg) feeding tube 09/01/23 Q8H PRN Fever Or Pain #30 tabs amitriptyline 100 mg tablet 100 mg feeding tube BEDTIME #30 09/01/23 tabs atorvastatin 10 mg tablet 10 mg feeding tube BEDTIME #30 tabs 09/01/23 baclofen 10 mg tablet 40 mg (4 x 10 mg) feeding tube TID 09/01/23 #30 tabs famotidine 20 mg tablet 20 mg feeding tube BID #30 tabs 09/01/23 magnesium hydroxide 400 mg/5 mL 30 ml feeding tube DAILY PRN 09/01/23 oral suspension (Milk of Magnesia) Constipation #355 mL metoprolol tartrate 25 mg tablet 25 mg G-tube BID #60 tabs 09/01/23 doxycycline monohydrate 100 mg 100 mg feeding tube DAILY PRN 05/03/24 tablet CATHETER CHANGE #30 tabs ascorbic acid (vitamin C) 500 mg 500 mg feeding tube BID 90 days 01/04/25 tablet (Vitamin C) #180 tabs methenamine hippurate 1 gram tablet 1 g feeding tube DAILY 90 days #90 01/04/25 tabs sulfamethoxazole 800 1 tab PO BID 5 days #10 tabs 02/07/25 mg-trimethoprim 160 mg tablet (Bactrim DS) Allergies Allergy/AdvReac Type Severity Reaction Status Date / Time bee pollen (BEE STINGS) Allergy Severe Anaphylaxis Verified 02/09/25 23:03 Review of Systems Review of Systems: Yes Unobtainable due to mental status PMFSH Past Medical History Medical History Constipation History of substance abuse Former smoker GERD (gastroesophageal reflux disease) HTN (hypertension) GI bleed Hepatitis B Anemia Afib Failure to thrive in adult Seizures Neuromyopathy UTI (urinary tract infection) Suprapubic catheter Hepatitis C Multiple sclerosis Surgical History Hx of cystoscopy Social History Social History Household Members: Other Household Members Other:: Senior [facility] Housing: Other Housing Other:: Senior Care Do you presently have visiting nurse or other home services: Yes Alcohol intake: never Comment: assisted staff at bedside Patient Tobacco Use Status: Former Tobacco user Tobacco use type: Cigarette Smoked in Last 30 Days: No e-Cigarette/Vaping Use: Never Used Second Hand Smoke Exposure: No Use of substances other than those prescribed or required for medical reasons: No Advance Directives: Yes Advance Directives on File: Yes Advance Directives Date on File: 09/02/23 service: No Current occupational status: disabled Physical Exam Vital Signs: Vital Signs: Last Vital Signs Temp 99.2 F 02/09/25 22:15 Pulse 98 02/09/25 22:15 Resp 16 02/09/25 22:15 BP 132/81 02/09/25 22:15 Pulse Ox 94 02/09/25 22:15 O2 Del Method Room Air 02/09/25 22:15 BMI result Body Mass Index 24.8 CONSTITUTIONAL: The patient appears clinically dehydrated, dry mucous membranes, chronically ill, otherwise well nourished and in no acute distress. Vital signs as documented. HEAD: Atraumatic, normocephalic. EYES: Pupils equal and reactive to light, conjunctiva clear, no exudate. ENT: Nares patent, no discharge. Airway patent, no audible stridor, visible mucosa is dry with some cracking but without noted lesions. NECK: Trachea is midline, no obvious masses or gross abnormalities. CHEST: Symmetric movement, normal appearance. LUNGS: LS present and CTAB, no w/r/r. Non-labored work of breathing. CARDIAC: Regular Rhythm, S1/S2 appreciated, no murmurs, rubs or gallops. ABDOMEN: Abdomen soft and without evidence of tenderness x4 quadrants, no palpable masses or organomegaly. G-tube site is well-appearing, no maceration or erythema. Suprapubic catheter site is also without significant maceration or erythema. : Deferred. EXTREMITIES: No obvious acute injury or deformity noted. NEURO: Alert, patient unable or unwilling to participate with the remainder of neurologic exam. SKIN: Warm, damp, color appropriate, normal turgor. No rashes noted. Medications Administered Discontinued Medications Generic Name Dose Route Start Last Admin Trade Name Freq PRN Reason Stop Dose Admin Ceftriaxone Sodium 1 gm/ 50 mls @ 100 mls/hr 02/09/25 22:18 02/09/25 23:07 Sodium Chloride IV 02/09/25 22:47 Infused ONCE ONE Infusion Sodium Chloride 1,000 mls @ 999 mls/hr 02/09/25 22:30 02/10/25 00:33 Ns IV 02/10/25 00:30 Infused .Q1H1M LARA Infusion Sodium Chloride 500 mls @ 999 mls/hr 02/09/25 22:30 02/10/25 00:33 Ns IV 02/09/25 23:00 Infused .Q31M LARA Infusion Medical Decision Making Medical Decision Making MDM Narrative: 10:23 PM 02/09/2025 (Keyon LAYNE): The patient is a 44 year old non-verbal male with history of hepatitis-C, seizures, and progressive multiple sclerosis resulting in residence in a long-term care facility, largely nonverbal status, spasticity with bed-bound or wheelchair status, neurogenic bladder requiring suprapubic catheter, and frequent UTIs, presenting to the ED via EMS for evaluation of tachycardia and change in responsiveness/mental status over the past 2 days. Staff reports patient is ?less alert than usual? over the past 2 days. The patient's suprapubic catheter reportedly was exchanged at the facility on 01/30; patient received prophylactic doxycycline the morning and evening of the exchange. The patient was also prescribed Bactrim by urology for 5-day prophylaxis, started on the evening of 02/07. Today the patient was noted to be tachycardic to 108 bpm, without hypotension. Staff denies overt cough but does report mild congestion. The patient's G-tube was also recently changed and has had no complications. Majority of HPI obtained from EMS and facility staff due to patient's nonverbal status. On exam the patient is noted to be clinically dehydrated with dry mucous membranes, suprapubic catheter ostomy is well-appearing, no significant skin maceration, G-tube site is well-appearing, no grimace or other evidence of discomfort during abdominal exam. Lung sounds are clear bilaterally. The patient is tachycardic and mildly tachypneic in the ED with a rectal temperature of 99.2 degrees. The patient will be treated prophylactically for suspected sepsis, we will cover with Rocephin and IV fluid bolus. The patient will be evaluated with urinalysis from a new Mcghee catheter bag, chest x-ray, basic laboratory evaluation, blood cultures, and lactic acid. 11:13 PM 02/09/2025 (Keyon LAYNE): The patient's workup has begun resulting, chest x-ray shows no focal consolidation, CBC and viral swabs are pending, lactic acid is only 1.3, CMP shows no significant electrolyte abnormality, no MARLENE. The patient's LFTs are unremarkable, lipase normal. The patient's urinalysis shows increased specific gravity with protein, nitrites, leukocyte esterase, and 3+ bacteria. The patient's urinalysis is the likely source of infection, we will continue with current treatment plan while awaiting CBC and viral swabs. Expect patient will require inpatient admission for complicated UTI with failure of outpatient therapy. 11:44 PM 02/09/2025 (Keyon LAYNE): Patient's CBC has resulted, no leukocytosis. We will admit. Admission/Observation Consideration of admission/observation: Escalation of care including admission/observation considered Lab Data MDM Lab Attestation statement: I reviewed the patient's lab results. 02/09/25 22:25 02/09/25 22:25 Labs: Lab Results 02/09/25 02/09/25 Range/Units 22:25 22:40 WBC 8.7 (4.8-10.8) X10*3/uL RBC 4.45 L (4.60-5.80) X10*6/uL Hgb 13.3 L (14.0-18.0) g/dl Hct 40.2 L (42.0-52.0) % MCV 90.3 (80.0-98.0) fL MCH 29.9 (27.0-33.0) pg MCHC 33.1 (31.0-36.0) g/dl RDW 11.7 (11.0-16.0) % Plt Count 294 D (160-400) X10*3/uL MPV 9.6 (9.4-12.4) fL Immature Gran % (Auto) 0.3 (0.0-0.4) % Neut % (Auto) 73.0 (45-73) % Lymph % (Auto) 15.9 L (20-40) % Fisher % (Auto) 9.4 (2-11) % Eos % (Auto) 1.1 (0-4) % Baso % (Auto) 0.3 (0-2) % Lymph # (Auto) 1.4 (1.2-4.9) X10*3/uL Fisher # (Auto) 0.8 (0.1-1.2) X10*3/uL Eos # (Auto) 0.1 (0.0-0.4) X10*3/uL Baso # (Auto) 0.0 (0.0-0.2) X10*3/uL Abs Immat Gran (auto) 0.03 (0.00-0.03) X10*3/uL Absolute Neuts (auto) 6.4 (2.0-8.3) x10*3/uL Absolute Nucleated RBC 0.000 (0.0-0.012) X10*3/uL Nucleated RBC % (auto) 0.0 (0.0-0.2) /100WBC Sodium 133 L (135-145) mmol/L Potassium 4.7 (3.3-5.1) mmol/L Chloride 101 (96-108) mmol/L Carbon Dioxide 22 (22-29) mmol/L Anion Gap 15 (12-20) BUN 15 (9-16) mg/dL Creatinine 0.64 (0.5-1.4) mg/dL Estim Creat Clear Calc TNP Estimated GFR > 60 Random Glucose 134 H (60-115) mg/dL Lactic Acid 1.3 (0.5-2.0) mmol/L Calcium 9.7 (8.4-10.2) mg/dL Magnesium 2.1 (1.6-2.6) mg/dL Total Bilirubin 0.5 (0.0-1.0) mg/dL AST 20 (5-37) U/L ALT 25 (0-40) U/L Alkaline Phosphatase 121 H (39-117) U/L Total Protein 8.0 (6.5-8.0) g/dL Albumin 4.1 (3.5-5.0) g/dL Lipase 12 (8-78) U/L Urine Color Dark Yellow Urine Appearance Cloudy Urine pH 6.5 (5.0-9.0) Ur Specific Clover >= 1.030 H (1.005-1.025) Urine Protein 30 (1+) H (Neg-Trace) mg/dL Urine Glucose (UA) Negative (Negative) mg/dL Urine Ketones 15 (Negative) mg/dL Urine Blood Negative (Negative) Urine Nitrite Positive H (Negative) Ur Leukocyte Esterase Small (1+) H (Negative) Urine RBC 0-2 (0-2) /HPF Urine WBC 6-10 (0-5) /HPF Ur Squamous Epith Cells 3-5 (0-2) /HPF Calcium Oxalate Crystal Present Urine Bacteria 3+ (None Seen) Hyaline Casts 3-5 (0-2) /LPF Influenza Type A (PCR) NEGATIVE (Negative) Influenza Type B (PCR) NEGATIVE (Negative) RSV RNA Qual (PCR) NEGATIVE (Negative) SARS-CoV-2 RNA (RT-PCR) NEGATIVE (Negative) Radiology Impression Discussion of test interpretation with radiology: I have reviewed the radiologist's reading. Procedures Catheter Insertion (Urinary) Date of insertion: 02/10/25 Time of insertion: 00:49 Reason for placing indwelling catheter: Other (Replace existing suprapubic cathether) Patient has the following: history of catheter associated urinary tract infection Bladder scan/ultrasound used before catheterization: No Antiseptic solution prep: Povidone-Iodine Catheter type/location: Suprapubic Size (Tongan): 18 Catheter balloon size (mL): 10 Catheter balloon amount: 10 Results: successfully catheterized-immediate flow Procedure performed: without complications Discharge Plan Discharge Clinical Impression: Acute UTI, Failure of outpatient treatment Patient Disposition: Admitted As Inpatient Print Language: Khmer
[2025-02-09 22:47] LABS: MANUAL DIFF FLAG NO
[2025-02-09 22:48] LABS: Hematocrit 40.2 % (42.0-52.0); Hemoglobin 13.3 g/dl (14.0-18.0); Imm Gran Abs Auto 0.03 X10*3/uL (0.00-0.03); Imm Gran Pct Auto 0.3 % (0.0-0.4); Lymphocytes Absolute Auto 1.4 X10*3/uL (1.2-4.9); Mean Corpuscular HGB Conc 33.1 g/dl (31.0-36.0); Mean Corpuscular Hemoglobin 29.9 pg (27.0-33.0); Mean Corpuscular Volume 90.3 fL (80.0-98.0); NRBC Abs Auto 0.000 X10*3/uL (0.0-0.012); NRBC Pct Auto 0.0 /100WBC (0.0-0.2); Platelet Count 294 X10*3/uL (160-400); Red Blood Count 4.45 X10*6/uL (4.60-5.80); White Blood Count 8.7 X10*3/uL (4.8-10.8)
[2025-02-09 22:50] LABS: Appearance Urine Cloudy; Glucose Urine UA Negative (Negative); PH 6.5 (5.0-9.0); Specific Gravity - Urine >= 1.030 (1.005-1.025); UMIC TRIGGER UACC YES
[2025-02-09 23:01] LABS: Alanine Aminotransferase 25 U/L (0-40); Albumin Level 4.1 g/dL (3.5-5.0); Alkaline Phosphatase 121 U/L (39-117); Anion Gap 15 (12-20); Aspartate Amino Transferase 20 U/L (5-37); Blood Urea Nitrogen 15 mg/dL (9-16); Calcium 9.7 mg/dL (8.4-10.2); Carbon Dioxide 22 mmol/L (22-29); Chloride 101 mmol/L (96-108); Estimated Glomerular Filt Rate > 60; Lipase 12 U/L (8-78); Magnesium 2.1 mg/dL (1.6-2.6); Potassium 4.7 mmol/L (3.3-5.1); Sodium 133 mmol/L (135-145); Total Protein 8.0 g/dL (6.5-8.0)
[2025-02-09 23:04] LABS: UACC Culture Trigger YES
--- OUTSIDE RECORDS SUMMARY | 2025-02-09 23:05 | XMS_ITS | Data Portability ---
Author Organization [place] [facility] Address [address] [place] [address] Care Team Providers Care Cloth Finishing Range Tender Name Role Phone MARIANO MATA Primary Care [...] Opened in error, unable to reach [facility] Not available 11/06/2020 10:35:14 11/07/2020 11/07/2020 Brief [...] after care of this patient according [facility]. Time On Scene with Patient: 00:41:04 amita Not available 11/07/2020 20:14:06 03/26/2021 03/26/2021 Proper Personal Protective Equipment (PPE), including gloves, gown, shoe covers, eye protection and Envo masks were donned and doffed appropriately and all equipment cleaned using approved technique with germicidal disposable wipes prior to and after care of this patient according to [facility]. Overview/History: 40 yo male w/PMHx of MS, neurogenic bladder s/p suprapubic catheter, wheelchair mobility, seizures, dysphagia, substance abuse, smoker, psoriasis. penitentiary staff states the patient has nasal congestion [...] CoV-2 SAULO collected to be sent to [facility] for analysis. Discussed the patient does not have to self-quarantined per [facility] because he is fully vaccinated and boostered against COVID and has no known sick contacts. COVID test results should be completed in 2 to 4 days, you will receive a phone call with positive results, no call for negative results. Patient and jail staff endorse understanding and agrees with this plan. In order to obtain further information and compare any laboratory results/values, I have accessed patient records on the [employer]. This information was pertinent in my medical decision making today. [email or web address] Not available 03/26/2021 17:28:01 Plan of Treatment Reminders Order Date Submit Date Provider Last Modified By Organization Details Last Modified Time Details Appointments None recorded. Lab unlisted lab - covid-19 (novel coronavirus ) PCR 2021 [email or web address] (Central[facility] Ordering - All Locations), Patient Can Go To The Location Of Their Choice, [id number] 2 18:27:45 unlisted lab - urinalysis w/reflex culture 2020 021 ningalls [facility] (Centralized Electronic Ordering - All Locations), Patient Can Go To The Location Of Their Choice, [id number] 12:02:43 Referral None recorded. Procedures None recorded. Surgeries None recorded. Imaging None recorded. Medication Orders triamcinolo ne acetonide 0.025 % topical ointment 2020 021 [facility], [address] [place] [address], [address], [id number], 19:56:42 Refresh P.M. 57.3 %-42.5 % eye ointment 2020 [facility], [address] [place] [address], [id number], 19:56:44 Artificial Tears (glycerin-p eg) 1 %-0.3 % eye drops 2020 021 [facility], [address] [place] [address], [address], [id number], 19:56:46 Patient TargetsNo targets recorded. Patient Instructions Encounter Date Encounter Id Patient Instructions Last Modified By Organization Details Last Modified Time 09/20/2020 [id number] Dash Hudson [facility] came to the jail to evaluate Noe for a problem with [...] suprapubic catheter is not always possible with Dash Hudson [facility]. IT is provider dependent. If there are fevers, chills or you feel he is worse, please call 911 and go to the ED> Not available 09/20/2020 15:37:53 11/07/2020 [id number] psoriasis: care instructions [email or web address] Not available 11/07/2020 19:49:34 dry eyes: care instructions [email or web address] 5 Not available 11/07/2020 19:49:29 Please follow up with your primary care provider or specialist at next available appointment to be rechecked or seek medical attention if your symptoms do not go away or get worse. If you have additional concerns or develop a change in your condition between 8am-10pm, please call [facility] at [phone] to help navigate your care. [email or web address] 5 Not available 11/07/2020 19:50:03 03/26/2021 [id number] Inhaler Instructions Before use, you need to [...] after cleaning actually helps it work better. Not available 03/26/2021 17:02:00 Reason for Referral None Reported. Results Created Date Observation Date Name Description Value Unit Range Abnormal Flag Note LastModifiedBy Organization Detail LastModifiedTime 09/21/1909/24/2020 URINE CULTU RE specimen description URINE Not Available [facility] (Centralized Electronic Ordering - All Locations) Patient Can Go To The Location Of Their Choice, [id number] 09/24/2020 14:40:30 09/21/1909/24/2020 URINE CULTU RE special [...] Go To The Location Of Their Choice, [id number] 09/24/2020 14:40:30 09/21/1909/24/2020 URINE CULTU RE piperacillin /tazobactam PIPERA CILLIN /TAZOB AC SUSCEP TIBLE susceptib le Not Available [facility] (Centralized Electronic Ordering - All Locations) Patient Can Go To The Location Of Their Choice, [id number] 09/24/2020 14:40:30 09/21/19 21 09/24/2020 URINE CULTU RE trimeth/sulf amethox TRIMET H/SULF AMETHO X SUSCEP TIBLE susceptib le Not Available [facility] (Centralized Electronic Ordering - All Locations) Patient Can Go To The Location Of Their Choice, [id number] 09/24/2020 14:40:30 09/21/19 21 09/24/2020 URINE CULTU RE tetracycline TETRAC YCLINE RESIST ANT resistant Not Available [facility] (Centralized Electronic Ordering - All Locations) Patient Can Go To The Location Of Their Choice, [id number] 09/24/2020 14:40:30 03/26/19 22 03/29/20212018 NOVEL CORON [...] nt publi c healt h emerg ency, [facility] is accep ting sampl [...] the [facility] websi te: www.xaitment uestD [facility] .[facility]/ Covid 19. = Test Perfo rmed by: [employer] [facility], [address] [place]. [address] . Labor atory Direc tor: Sridevi nettles MD. Not Available [facility] (Centralized Electronic Ordering - All Locations) Patient Can Go To The Location Of Their Choice, [id number] 03/29/2021 05:52:14 Result Notes None recorded. Procedures Surgical History Date Name Laterality Status Provider Name and Address Organization Details Recorded Time Mcghee Catheter Insertion - completed CAMACHO BAILEY NP [address] [place], [address], [place] [facility] 09/20/2020 17:24:40 Imaging Results None recorded. Procedure Notes None recorded. Medical Equipment None Reported. Allergies Allergen ID Allergen Name Allergen Category Reaction Reaction Severity Criticality Documentation Date Start Date Code Code System Note Provider Name and Address Organization Details Recorded Time [id number] honey bee venom medicatio n Not available Not available Not available 09/20/2020 38898 7 RxNorm CAMACHO BAILEY, [place] [address] [place], [address], [place] [facility] 15:30:02 Medications Name Sig Start Date [...] rate Body temperature Respiratory rate Oxygen saturation Systolic And Diastolic Provider Name and Address Organization Details Last Updated DateTime 2 88 /min 97 [degF] 14 /min 98 % 130/80 mm[Hg] Not Available [facility] 2 17:13:03 Date Recorded Heart rate Respiratory rate Body temperature Oxygen saturation Systolic And Diastolic Provider Name and Address Organization Details Last Updated DateTime 1 89 /min 18 /min 98.9 [degF] 93 % 144/82 mm[Hg] Not Available [facility] 1 14:55:02 Date Recorded Body temperature Respiratory rate Oxygen saturation Heart rate Oxygen saturation Heart rate Body temperature Respiratory rate Systolic And Diastolic Systolic And Diastolic Provider Name and Address Organization Details Last Updated DateTime 96.2 [degF] 16 /min 97 % 80 /min 97 % 80 /min 96.2 [degF] 16 /min 118/80 mm[Hg] 118/80 mm[Hg] Not Available [facility] 19:41:03 Social History Question Answer Notes LastModified by Parking Panda Details LastModified Time Tobacco Smoking Status Current Some Day Smoker BRET MONZON, [place] [address], [place], [address], [place] [facility] 11/07/2020 19:39:56 What Is Your Code Status? Full Code [email or web address] Information not available 11/07/2020 Fall Risk: Do You Feel Unsteady When Standing Or Walking? Yes [email or web address] Information not available 11/07/2020 Excessive Alcohol Or Drug Use No Information not available 11/07/2020 Does This Patient Have A PCP? Yes [email or web address] Information not available 11/07/2020 How Many Years Have You Smoked Tobacco? 20 [email or web address] Information not available 11/07/2020 Sex: Unknown Functional Status Question Answer Note LastModified by Parking Panda Details LastModified Time Do you use any illicit or recreational drugs? No [email or web address] Information not available 11/07/2020 Do you or have you ever used any other forms of tobacco or nicotine? No [email or web address] Information not available 11/07/2020 What is your level of alcohol consumption? None Information not available 11/07/2020 Mental Status None recorded. Family History Relationship Description Onset Age of this Age Resolved Age Notes LastModified by Organization Details LastModified Time Father No current problems or disability [email or web address] Not available 0 11/07/2020 19:38:39 Mother No current problems or disability [email or web address] Not available 0 11/07/2020 19:38:39 Notes:Pt denies FH Medical History Condition Response Coronary Artery Disease N Stroke N High Cholesterol N Kidney Disease N Asthma N Pulmonary Embolism N Hypertension N Past Encounters Encounter ID Performer Location Encounter Start Date Encounter Closed Date Diagnosis/Indication Diagnosis SNOMED-CT Code Diagnosis ICD10 Code Diagnosis IMO Codes Diagnosis Note [id number] CAMACHO BAILEY, [facility] [facility] [address] [facility] [address] 09/20/2020 14:54:22 09/23/2020 18:41:47 Mechanical complication of suprapubic catheter 743657677 T83.198A [id number] GABY CARRIE, ALLERGY PHYSICIAN [facility] [address] [place] [address] 11/06/2020 10:21:09 11/06/2020 15:09:11 [id number] BRET MONZON, ALLERGY PHYSICIAN [facility] [address] [place] [address] 11/07/2020 19:06:33 11/08/2020 21:41:04 Psoriasis of face 001893486 L40.9 acute on chronic Adverse re action to drug 86279083 T50.905A Dry eyes 540130553 H04.1 29 [id number] DERECK SALINAS NP [facility] [address] [place] [address] 03/26/2021 17:01:05 03/31/2021 11:43:30 Exposure to communicable disease 142127174 Z20.9 Health Concerns Section Related Observation LastModified by Organization Detai ls LastModified Time None Recorded Concern Status LastModified by Organization Details LastModified Time None Recorded Advance Directives Directive None Recorded Payers Insurance Date Sequence Insurance Name Policy Number Policy Covered Member ID Member ID Guarantor Name 09/19/2020 1 *SELF PAY* Noe Vieira [id number] Noe Vieira 03/26/2021 2 [place] [facility] Noe Vieira [id number] Noe Vieira 09/23/2020 1 [facility] (MEDICAID HMO) Noe Vieira [id number] Noe Vieira 03/31/2021 1 [place] [facility] Noe Vieira [id number] Noe Vieira Notes Date Note Type Note Provider Name and Address Organization Details Recorded Time 09/20/2020 text/html 39 year-old male with history of progressive MS, wheelchair bound ,suprapubic catheter, substance abuse, chronic methadone use for pain control, whose staff calls DH to the jail to evaluate patient's suprapubic catheter.Pt had a [...] been acting his norm per staff of jail.Pt denies any difficulty in breathing and has no complaints. CAMACHO BAILEY NP [address], [place], [address], [place] [facility] 09/20/2020 17:34:37 11/06/2020 text/html Opened in error, unable to reach [facility] GABY BUTLER NP [address], [place], [address], [place] [facility] 11/06/2020 10:35:31 11/07/2020 text/html [...] dry. BRET MONZON NP [address], [place], [address], [place] [facility] 11/07/2020 20:14:13 03/26/2021 text/html General HPI Template - DHReported by Patient 40 yo male who is known to but new to this provider. Patient's PMHx includes MS, neurogenic bladder s/p suprapubic catheter, wheelchair mobility, seizures, dysphagia, substance abuse, smoker, psoriasis; he resides in a jail setting. penitentiary staff endorse the patient has been experiencing congestion, with increased sniffling for the last two days; he is vacc., and boostered against COVID 19; deny any active COVID residents in building. Patient denies fever, chills, eye/ear pain, changes in vision, chest pain, palpitations, abdominal pain, N/V/D. DERECK SALINAS NP [address] [place] [address], [address], [place] [facility] 03/26/2021 20:11:33
--- OUTSIDE RECORDS SUMMARY | 2025-02-09 23:05 | XMS_ITS | Encounter Summary ---
Author Organization [facility] Address [address] [place] [address] Care Team Providers Care Medical Affairs Specialist Name Role Phone Reji Lu Primary Care Provider Reason for Visit * Reason Onset Date Comments Reschedule 04/01/2021 Encounter Details Date Type Department Care Team (Late st Contact Info) Description 04/01/2021 Telephone [facility] Central Scheduling Department [address] [place] [address] Telephone Intake, Staff Reschedule Social History Tobacco [...] Davide - 04/01/2021 3:49 PM EST Amy Business And Marketing Teacher rescheduling pt's MS appt for 04/03 with Isaac Hugo MD Per DT, rescheduled appt for 09/[address] Hugo documented in this encounter Plan of Treatment Upcoming Encounters Date Type Department Care Team (Late st Contact Info) Description 03/30/2025 9:00 AM EST Telehealth [facility] [address] [place] [address] Cable Maintainer: Laxmi Hugo, Isaac May MD [address] [place] [address] documented as of this encounter Visit Diagnoses Not on filedocumented in this encounter Care Teams Medical Affairs Specialist Relationship Specialty Start Date End Date Reji Lu [address] [place] [address] PCP - General Internal Medicine 01/19/25 documented as of this encounter
--- OUTSIDE RECORDS SUMMARY | 2025-02-09 23:05 | XMS_ITS | Encounter Summary ---
Author Organization [facility] Address [address] [place] [address] Care Team Providers Care Assistant Sales Center Manager Name Role Phone Reji Lu Primary Care Provider [phone] Reason for Visit * Reason Onset Date Comments RX refill 06/19/2021 Encounter Details Date Type Department Care Team (Late st Contact Info) Description 06/19/2021 Telephone [facility] Central Scheduling Department [address] [place] [address] Telephone Intake, Staff RX refill Social History [...] anything yet pls follow up once complete [phone] documented in this encounter Plan of Treatment Upcoming Encounters Date Type Department Care Team (Late st Contact Info) Description 03/30/2025 9:00 AM [facility] [place] [facility] [address] [place] [address] Underground Bolting Machine Operator: Isaac Brumfield MD [address] [place] [id number] documented as of this encounter Visit Diagnoses Not on filedocumented in this encounter Care Teams Assistant Sales Center Manager Relationship Specialty Start Date End Date Reji Lu [address] [place] [address] PCP - General Internal Medicine 01/19/25 documented as of this encounter
--- OUTSIDE RECORDS SUMMARY | 2025-02-09 23:05 | XMS_ITS | Encounter Summary ---
Author Organization [facility] Address [address] [place] [address] Care Team Providers Care Packaging Operator Name Role Phone Reji Lu Primary Care Provider [phone] Reason for Visit * Reason Onset Date Comments Fax Referral 07/29/2020 Encounter Details Date Type Department Care Team (Late st Contact Info) Description 07/29/2020 Telephone [facility] Central Scheduling Department [address] [place] [address] Telephone Intake, Staff Fax Referral Social History [...] She states that she has power of criminal attorney. Noe will be coming to the initial visit with someone from his residential, but she is unable to attend the first visit. She will have the residential bring 1. Copy of power of criminal attorney, 2. MRI results report from [facility] 2017. 3. Medication list, 4. Most recent PCP note. (she does not know PCP's name at the moment.) I have sent her the [employer] link, so that she can also send us records thru [employer]. His mother adds that he is a poor historian. * Telephone Encounter - Nickolas Sam - 07/29/2020 1:16 PM EDT [facility] has medical records of pt Pt's mother said the most recent MRI was in September 2016. To obtain this, mother said she was having difficult time. [facility] wants [facility] to fax them a request and they will send records. [facility] fax number: [phone] documented in this encounter Plan of Treatment Upcoming Encounters Date Type Department Care Team (Late st Contact Info) Description 03/30/2025 9:00 AM [facility] Telehealth [facility] [address] [place] [address] Fence Installer Foreman: Isaac Brumfield MD [address] [place] [address] documented as of this encounter Visit Diagnoses Not on filedocumented in this encounter Care Teams Packaging Operator Relationship Specialty Start Date End Date Reji Lu [address] [place] [address] PCP - General Internal Medicine 01/19/25 documented as of this encounter
--- OUTSIDE RECORDS SUMMARY | 2025-02-09 23:05 | XMS_ITS | Encounter Summary ---
Author Organization [facility] Address [address] [place] [address] Care Team Providers Care Dip Tanker Name Role Phone Reji Lu Primary Care Provider [phone] Encounter Details Date Type Department Care Team (Late st Contact Info) Description 07/15/2021 Telephone [facility] Central Scheduling Department [address] [place] [address] Telephone Intake, Staff Social History Tobacco Use [...] Hugo Caregiver reqs prescription be refilled at [facility] [phone] Sending TE to [facility] Mutiple Sclerosis Clinical Staff per DT to please obtain order from provider and send to above named pharmacy documented in this encounter Plan of Treatment Upcoming Encounters Date Type Department Care Team (Late st Contact Info) Description 03/30/2025 9:00 AM [facility] [address] [place] [address] Director Erp: Isaac Brumfield MD [address] [place] [address] documented as of this encounter Visit Diagnoses Not on filedocumented in this encounter Care Teams Dip Tanker Relationship Specialty Start Date End Date Reji Lu [address] [place] [address] PCP - General Internal Medicine 01/19/25 documented as of this encounter
--- OUTSIDE RECORDS SUMMARY | 2025-02-09 23:05 | XMS_ITS | Clinical Summary ---
Author Organization [facility] Address [address] [place] [address] Care Team Providers Care Factory Clerk Name Role Phone SteffenkaiReji Primary Care Provider [phone] Allergies Active Allergy Reactions Criticality Noted Date [...] Type Department Care Team Description 12/04/2024 [facility] [address] [place] [address] Special Class Welder: Lisa Perez Multiple sclerosis (HCC); Spastic quadriplegia (HCC) 12/01/2024 myChart Message [facility] [address] [place] [address] Molina Mendenhall LPN refill 12/01/2024 Refill [facility] [address] [address] Molina Mendenhall LPN Multiple sclerosis (HCC) 12/01/2024 Telephone [facility] [address] [address] Deepa Zimmer CCMA PAC RX Refill from Last 3 Months Social History Tobacco [...] st Contact Info) Description 03/30/2025 9:00 AM [facility] Telehealth [facility] [address] [place] [address] Special Class Welder: Isaac Brumfield MD [address] [place] [address] Health Maintenance Due Date Last Done Comments [...] 2024 , 02/25/2023, 01/22/2023, Additional history exists COVID-19 Vaccine (2024- season) 2024 07/10/2024, 01/02/2022, 01/31/2021, Additional history exists DTaP,Tdap,and Td Vaccines (2 - Td or Tdap) 07/19/2031 07/18/2021 Pneumococcal Vaccine: Pediatric (0-5 Years) and At-Risk Patients (6-50 Years) Aged Out 08/19/2022 No longer eligible based on patient's age to complete this topic Insurance [facility] MEDICAID Advance Directives Documents on File Type Date Recorded Patient News Camera Operator Expl anation Power of Salvager Helper 08/21/2020 6:37 PM 2018 Care Teams Factory Clerk Relationship Specialty Start Date End Date Reji Lu [address] [place] [phone] PCP - General Internal Medicine 01/19/25
[2025-02-09 23:20] LABS: Resp Syncy Virus RNA Qual PCR NEGATIVE (Negative); SARS COV2 PCR INHOUSE NEGATIVE (Negative)
[2025-02-10] VITALS (9 sets, daily range): BP systolic 120–139; BP diastolic 70–90; PULSE 79–130; RESP 13–20; TEMP 36.3–37.3; O2SAT 92–98; BMI 29.8
--- NOTE | 2025-02-10 | ECG_ITS ---
Test Reason : tachycardia Blood Pressure : */* mmHG Vent. Rate : 133 BPM Atrial Rate : 133 BPM P-R Int : 136 ms QRS Dur : 94 ms QT Int : 300 ms P-R-T Axes : 42 47 14 degrees QTcB Int : 446 ms Sinus tachycardia Nonspecific T wave abnormality Abnormal ECG When compared with ECG of 26-Aug-2024 10:55, Nonspecific T wave abnormality, worse in Inferior leads Nonspecific T wave abnormality now evident in Lateral leads Referred By: Alysha Vega Electronically Signed By: TERRY TAYLOR
--- NOTE | 2025-02-10 00:22 | PM.IMHP ---
History of Present Illness Date of Service: 02/10/25 Attending physician on admission: Neil Jacobson Chief Complaint: UTI Patient is a 44-year-old male with history of progressive MS and severe cognitive and physical impairment currently bed-bound living in alf, constipation, GI bleed, GERD, seizures, hepatitis-B and C, history of substance abuse, neurogenic bladder with suprapubic catheter in place, depression, HLD, GERD, G-tube, UTI with history of ESBL - VRE - Serratia - Morganella - P Mignon is normally bed-bound and nonverbal per facility staff at his bedside reports that patient was brought in for 2 days of decreased responsiveness and a noted increase in heart rate earlier today of 108. It has been reported that patient's suprapubic catheter was last replaced on 01/20/2025 and patient has been on antibiotics pre and post catheter change and then on Bactrim per his urologist and this was started on the evening of 02/07. In addition, staff are reporting mild congestion but no productive cough. Per staff patient is currently eating and drinking by mouth, but per medical records patient is receiving G-tube feeds, unclear if patient has had problems with aspiration in the past. Per ED report patient's G-tube was also recently changed 01/24/2025 and he has had no complications since. Patient being admitted for UTI and IV antibiotics. Patient has had history of multiple organisms with multiple susceptibilities and resistant findings. Patient currently on ceftriaxone and urine culture is pending. Antibiotics may require upgrade based on what is resulted. Suprapubic catheter was changed by the ED provider. Review of Systems Review of Systems: Yes Other (Patient is nonverbal) [facility] Medical History Constipation History of substance abuse Former smoker GERD (gastroesophageal reflux disease) HTN (hypertension) GI bleed Hepatitis B Anemia Afib Failure to thrive in adult Seizures Neuromyopathy UTI (urinary tract infection) Suprapubic catheter Hepatitis C Multiple sclerosis Cognitive capacity: Nonverbal unable to assess Functional capacity: bed bound Surgical History Hx of cystoscopy Social History Household Members: None Household Members Other:: Nursing Home Housing: Alf Housing Other:: Nursing Home Do you presently have visiting nurse or other home services: No Alcohol intake: never Comment: alf staff at bedside Patient Tobacco Use Status: Former Tobacco user Tobacco use type: Cigarette Smoked in Last 30 Days: No e-Cigarette/Vaping Use: Never Used Second Hand Smoke Exposure: No Use of substances other than those prescribed or required for medical reasons: No Advance Directives: Yes Advance Directives on File: Yes Advance Directives Date on File: 09/02/23 Do you have a plan to hurt others: No Plan Recently lost weight without trying: No Nutrition Risks: On aspiration precautions and Receiving home tube feeding or CPN Poor oral hygiene: No service: No Current occupational status: disabled Meds Allergies Allergy/AdvReac Type Severity Reaction Status Date / Time bee pollen (BEE STINGS) Allergy Severe Anaphylaxis Verified 02/09/25 23:03 Active Medications: Current Medications Sodium Chloride (Ns) 1,000 mls @ 999 mls/hr IV .Q1H1M LARA Stop: 02/10/25 00:30 Last Admin: 02/09/25 22:42 Dose: 999 mls/hr Home Medications ?Medication ?Instructions ?Recorded ?Confirmed ?Last Taken ?Type alpha lipoic acid 600 mg tablet 600 mg PO BID 08/29/22 12/07/24 08/29/23 20:00 History fluticasone propionate 50 1 spray intranasal Q4H PRN 01/21/23 12/07/24 08/29/23 20:00 History mcg/actuation nasal Congestion spray,suspension sodium phosphates 19 gram-7 118 ml MN DAILY PRN BM 08/30/23 12/07/24 Unknown History gram/118 mL enema (Fleet Enema) epinephrine 0.3 mg/0.3 mL 0.3 mg IM Q15M PRN Anaphylaxis 02/27/24 12/07/24 Unknown History injection, auto-injector gabapentin 100 mg capsule 200 mg PO TID 02/27/24 12/07/24 Unknown History polyethylene glycol 3350 17 17 g feeding tube DAILY 02/27/24 12/07/24 Unknown History gram/dose oral powder doxycycline hyclate 100 mg 100 mg IV Q12H 04/13/24 12/07/24 Unknown History intravenous powder for solution ketoconazole 2 % topical cream 1 appl topical BID 04/13/24 12/07/24 Unknown History triamcinolone acetonide 0.025 % 1 appl topical BID 04/13/24 12/07/24 Unknown History topical cream cetirizine 10 mg tablet 10 mg PO DAILY 12/07/24 12/07/24 Unknown History cholecalciferol (vitamin D3) 50 50 mcg PO DAILY 12/07/24 12/07/24 Unknown History mcg (2,000 unit) tablet levetiracetam 500 mg tablet 500 mg PO BID 12/07/24 12/07/24 Unknown History melatonin 5 mg disintegrating 5 mg PO BEDTIME 12/07/24 12/07/24 Unknown History tablet sennosides 8.6 mg tablet (senna) 17.2 mg PO BID 12/07/24 12/07/24 Unknown History Physical Exam Vital Signs and Narrative: Vital Signs: Last Vital Signs Temp 99.2 F 02/09/25 22:15 Pulse 98 02/09/25 22:15 Resp 16 02/09/25 22:15 BP 132/81 02/09/25 22:15 Pulse Ox 94 02/09/25 22:15 O2 Del Method Room Air 02/09/25 22:15 BMI result Body Mass Index 24.8 Patient is nonverbal, does make eye contact, but can not communicate Neuro: Patient is awake, unable to follow commands EYES: PERRLA, sclerae nonicteric, conjunctiva pink ENT: lips moist, nares patent no epistaxis Cardiac: S1 S2 RRR, no murmur, no JVD, no edema in Lower ext Pulmonary: lungs diminished bilaterally, no adventitious sounds noted Abdominal: BS active in all 4 quadrants, no guarding, tenderness, rebounding, abdomen appears distended MSK: Unable to assess strength in upper and lower extremities : no bladder distension Extremities: no edema in lower extremities, PT and DP pulses palpable +2 Psych: Calm without agitation Skin: No new lesions or rashes, no new open wounds reported by staff Results Labs 02/09/25 22:25 02/09/25 22:25 Labs: Laboratory Results - last 24 hr 02/09/25 02/09/25 22:25 22:40 MCV 90.3 MCH 29.9 MCHC 33.1 RDW 11.7 Plt Count 294 D MPV 9.6 Immature Gran % (Auto) 0.3 Neut % (Auto) 73.0 Lymph % (Auto) 15.9 L [place] % (Auto) 9.4 Eos % (Auto) 1.1 Baso % (Auto) 0.3 Lymph # (Auto) 1.4 [place] # (Auto) 0.8 Eos # (Auto) 0.1 Baso # (Auto) 0.0 Abs Immat Gran (auto) 0.03 Absolute Neuts (auto) 6.4 Absolute Nucleated RBC 0.000 Nucleated RBC % (auto) 0.0 Anion Gap 15 Estim Creat Clear Calc TNP Estimated GFR > 60 Random Glucose 134 H Lactic Acid 1.3 Calcium 9.7 Magnesium 2.1 Total Bilirubin 0.5 AST 20 ALT 25 Alkaline Phosphatase 121 H Total Protein 8.0 Albumin 4.1 Lipase 12 Urine Color Dark Yellow Urine Appearance Cloudy Urine pH 6.5 Ur Specific [place] >= 1.030 H Urine Protein 30 (1+) H Urine Glucose (UA) Negative Urine Ketones 15 Urine Blood Negative Urine Nitrite Positive H Ur Leukocyte Esterase Small (1+) H Urine RBC 0-2 Urine WBC 6-10 Ur Squamous Epith Cells 3-5 Calcium Oxalate Crystal Present Urine Bacteria 3+ Hyaline Casts 3-5 Influenza Type A (PCR) NEGATIVE Influenza Type B (PCR) NEGATIVE RSV RNA Qual (PCR) NEGATIVE SARS-CoV-2 RNA (RT-PCR) NEGATIVE ECG Prior ECG tracings: not available for review Imaging Radiologist's Impressions: Chest x-ray Findings: Low inspiration. Resultant mild vascular crowding centrally with subsegmental atelectasis. No consolidation or effusion. Heart size at the upper limits. Percutaneous gastrostomy tube is noted, however the tip is not clearly identified. No acute fractures. Impression: 1. Low inspiration with central vascular crowding and subsegmental atelectasis. Assessment and Plan (1) Acute UTI: Status: Acute Plan Patient is a 44-year-old male with history of progressive MS and severe cognitive and physical impairment currently bed-bound, constipation, GI bleed, GERD, seizures, hepatitis-B and C, history of substance abuse, neurogenic bladder with suprapubic catheter in place, depression, HLD, GERD, G-tube, UTI with history of ESBL - VRE - Serratia - Morganella - P Stuarti is normally bed-bound and nonverbal per facility staff at his bedside reports that patient was brought in for 2 days of decreased responsiveness and a noted increase in heart rate earlier today of 108. Patient last had his suprapubic catheter changed 01/30, received pre and post antibiotics with doxycycline. Patient then prescribed Bactrim from his urologist on 02/07. Patient found to have UTI and required admission. UTI without sepsis criteria UA negative for heme, positive for nitrites and leukocyte esterase with 6-10 WBCs and +3 bacteria Urine culture pending: Patient has history of multiple organisms in the past Continue ceftriaxone 1 g Q 24 hour IV fluids continuing Lactic acid 1.3, no leukocytosis, no tachycardia, max temp 99.2 degrees Suprapubic catheter changed in the ED Neurogenic bladder Patient normally on methenamine and baclofen Constipation/ abdominal distention/ questionable placement of G-tube, ILEUS via KUB Possible ileus via KUB without abd pain, N/V but noted distension, active bowel sounds Consider CT abd if no BM today or GI symptoms occur NPO Bowel regimen ordered, dulcolax one time and prn LA 1.3 G tube is correctly placed in the stomach Hypertension Okay to continue metoprolol once med rec completed Hyponatremia Sodium 133 BMP in the a.m. GERD Protonix IV as pt is NPO Progressive MS with severe cognitive and physical impairment Patient requires 24/7 care Turn and position q.2 hours Pt currently NPO due to ileus noted on KUB Per records from alf, pt takes osmolite 1.5 240 mls BID (10AM, 7pm), prosource 30 mls daily, per staff from alf pt does eat and drink orally Aspiration precautions in place Nutritional consult placed DVT prophylaxis: Lovenox Med rec pending Full code status Patient requires at least 2 midnight stay for IV antibiotics for UTI, ileus and hemodynamic monitoring. Quality Stroke Does the patient have a stroke diagnosis?: No Reason for No Anti-thrombotic by Day Two: N/A - Med Ordered VTE Prior VTE?: No VTE Risk Level:: Medical - moderate - high VTE Device Contraindication: N/A - Device Ordered VTE Drug Contraindication: N/A - Med Ordered
--- NOTE | 2025-02-10 00:49 | PC.NURSE ---
provider at bedside to replace suprapubic cath. 18F removed, 18F replaced. 800ml output in previous bag, yellow urine. pt tolerated well.
[2025-02-10] MEDS: Lactated Ringers 1,000 ML 125 ML IVCONT ×3 (00:56→16:44)
--- NOTE | 2025-02-10 03:36 | PC.NURSE ---
Patient from [facility], nonverbal, bed-bound. Staff from facility present. Ability for PO and tube feed directions to be verified in AM. Hx of ESBL and seizures ,precautions initiated.
--- NOTE | 2025-02-10 07:24 | P.PNIM_ITS ---
Subjective Subjective Date of Service: 02/10/25 Interval History: Patient needs to continue on IV antibiotics till culture and sensitivities come back Review of Systems Review of Systems: Yes Unobtainable due to mental condition and Unobtainable due to mental status Physical Exam 2 Exam: Exam: General: AOx0, nonverbal at baseline-per the care staff at the bedside-this is his baseline Resp: CTA bilaterally CVS: S1, S2, RRR GI: G-tube area CDI, functioning Neuro: Cranial nerves II-XII grossly intact bilaterally. Motor grossly intact bilaterally Skin examination deferred-wound care consulted Psych: Unable to assess secondary to baseline chronic psychiatric medical conditions Vital Signs: Vital Signs: Last Vital Signs Temp 97.8 F 02/10/25 03:53 Pulse 79 02/10/25 03:53 Resp 16 02/10/25 03:53 BP 134/79 02/10/25 03:53 Pulse Ox 94 02/10/25 03:53 O2 Del Method Room Air 02/10/25 03:53 BMI result Body Mass Index 29.8 Objective Data Active Medications Acetaminophen (Acetaminophen 325 Mg Tablet) 650 mg G-TUBE Q6H PRN PRN Reason: Pain, Mild 1-3,fever,headache Albuterol/Ipratropium (Albuterol/Iprat 2.5/0.5mg 3 Ml Ampul.Neb) 3 ml INHALE Q4H PRN PRN Reason: Shortness of Breath/Wheezing Bisacodyl (Bisacodyl 10 Mg Supp.Rect) 10 mg ME BEDTIME PRN PRN Reason: Constipation Enoxaparin Sodium (Enoxaparin Sodium 40 Mg/0.4 Ml Syringe) 40 mg SUBCUT Q24H [facility] Lactated Ringer's (Lr) 1,000 mls @ 125 mls/hr IVCONT .Q8H LARA Last Admin: 02/10/25 00:56 Dose: 125 mls/hr Documented By: WILFRED Ceftriaxone Sodium 1 gm/ (Sodium Chloride) 50 mls @ 100 mls/hr IV Q24H [facility] Magnesium Hydroxide (Milk Of Magnesia 30 Ml Oral.Susp) 30 ml G-TUBE DAILY PRN PRN Reason: Constipation Ondansetron HCl (Ondansetron Hcl 4 Mg/2 Ml Vial) 4 mg IVPUSH Q8H PRN PRN Reason: Nausea and Vomiting Pantoprazole Sodium (Pantoprazole Sodium 40 Mg/10 Ml Vial) 40 mg IVPUSH DAILY@0630 [facility] Last Admin: 02/10/25 05:36 Dose: 40 mg Documented By: EYAD Polyethylene Glycol (Polyethylene Glycol 3350 17 Gm Powd.Pack) 17 gm G-TUBE DAILY [facility] Senna (Sennosides 8.6 Mg Tablet) 17.2 mg G-TUBE BEDTIME [facility] Sodium Chloride (0.9 % Sodium Chloride Flush 3 Ml Syringe) 3 ml IVFLUSH QSHIFT [facility] Labs 02/10/25 07:46 02/10/25 07:46 Labs: Laboratory Results - last 24 hr 02/09/25 02/09/25 22:25 22:40 MCV 90.3 MCH 29.9 MCHC 33.1 RDW 11.7 Plt Count 294 D MPV 9.6 Immature Gran % (Auto) 0.3 Neut % (Auto) 73.0 Lymph % (Auto) 15.9 L [place] % (Auto) 9.4 Eos % (Auto) 1.1 Baso % (Auto) 0.3 Lymph # (Auto) 1.4 [place] # (Auto) 0.8 Eos # (Auto) 0.1 Baso # (Auto) 0.0 Abs Immat Gran (auto) 0.03 Absolute Neuts (auto) 6.4 Absolute Nucleated RBC 0.000 Nucleated RBC % (auto) 0.0 Anion Gap 15 Estim Creat Clear Calc TNP Estimated GFR > 60 Random Glucose 134 H Lactic Acid 1.3 Calcium 9.7 Magnesium 2.1 Total Bilirubin 0.5 AST 20 ALT 25 Alkaline Phosphatase 121 H Total Protein 8.0 Albumin 4.1 Lipase 12 Urine Color Dark Yellow Urine Appearance Cloudy Urine pH 6.5 Ur Specific [place] >= 1.030 H Urine Protein 30 (1+) H Urine Glucose (UA) Negative Urine Ketones 15 Urine Blood Negative Urine Nitrite Positive H Ur Leukocyte Esterase Small (1+) H Urine RBC 0-2 Urine WBC 6-10 Ur Squamous Epith Cells 3-5 Calcium Oxalate Crystal Present Urine Bacteria 3+ Hyaline Casts 3-5 Influenza Type A (PCR) NEGATIVE Influenza Type B (PCR) NEGATIVE RSV RNA Qual (PCR) NEGATIVE SARS-CoV-2 RNA (RT-PCR) NEGATIVE Assessment and Plan (1) Acute UTI: Status: Acute Plan Patient is a 44-year-old male with history of progressive MS and severe cognitive and physical impairment currently bed-bound, constipation, GI bleed, GERD, seizures, hepatitis-B and C, history of substance abuse, neurogenic bladder with suprapubic catheter in place, depression, HLD, GERD, G-tube, UTI with history of ESBL - VRE - Serratia - Morganella - P Mignon is normally bed- bound and nonverbal per facility staff at his bedside reports that patient was brought in for 2 days of decreased responsiveness and a noted increase in heart rate earlier today of 108. Patient last had his suprapubic catheter changed 01/30, received pre and post antibiotics with doxycycline. Patient then prescribed Bactrim from his urologist on 02/07. Patient found to have UTI and required admission. UTI without sepsis criteria UA negative for heme, positive for nitrites and leukocyte esterase with 6-10 WBCs and +3 bacteria Urine culture pending: Patient has history of multiple organisms in the past Continue ceftriaxone 1 g Q 24 hour IV fluids continuing Lactic acid 1.3, no leukocytosis, no tachycardia, max temp 99.2 degrees Suprapubic catheter changed in the ED this admission Neurogenic bladder Patient normally on methenamine and baclofen , continue Constipation/ abdominal distention/ questionable placement of G-tube, ILEUS via KUB G tube patent, Nutrition consult for Tube feeds resumptions G tube site CDI Hypertension Resume home meds Hyponatremia resolved with fluids GERD Protonix IV as pt is NPO Progressive MS with severe cognitive and physical impairment Patient requires 24/7 care Turn and position q.2 hours Pt currently NPO due to ileus noted on KUB [facility], pt takes osmolite 1.5 240 mls BID (10AM, 7pm), prosource 30 mls daily, per staff from [facility] pt does eat and drink orally Aspiration precautions in place Nutritional consult placed DVT prophylaxis: Lovenox Med rec pending Full code status Patient requires at least 2 midnight stay for IV antibiotics for UTI, ileus and hemodynamic monitoring Quality Stroke Does the patient have a stroke diagnosis?: No Reason for No Anti-thrombotic by Day Two: N/A - Med Ordered VTE Prior VTE?: No VTE Risk Level:: Medical - moderate - high VTE Device Contraindication: N/A - Device Ordered VTE Drug Contraindication: N/A - Med Ordered
[2025-02-10 07:57] LABS: MANUAL DIFF FLAG NO
[2025-02-10 08:05] LABS: Hematocrit 34.6 % (42.0-52.0); Hemoglobin 11.5 g/dl (14.0-18.0); Imm Gran Abs Auto 0.03 X10*3/uL (0.00-0.03); Imm Gran Pct Auto 0.4 % (0.0-0.4); Lymphocytes Absolute Auto 1.7 X10*3/uL (1.2-4.9); Mean Corpuscular HGB Conc 33.2 g/dl (31.0-36.0); Mean Corpuscular Hemoglobin 30.3 pg (27.0-33.0); Mean Corpuscular Volume 91.3 fL (80.0-98.0); NRBC Abs Auto 0.000 X10*3/uL (0.0-0.012); NRBC Pct Auto 0.0 /100WBC (0.0-0.2); Platelet Count 247 X10*3/uL (160-400); Red Blood Count 3.79 X10*6/uL (4.60-5.80); White Blood Count 7.1 X10*3/uL (4.8-10.8)
[2025-02-10 08:25] LABS: Alanine Aminotransferase 18 U/L (0-40); Albumin Level 3.5 g/dL (3.5-5.0); Alkaline Phosphatase 101 U/L (39-117); Anion Gap 12 (12-20); Aspartate Amino Transferase 19 U/L (5-37); Blood Urea Nitrogen 10 mg/dL (9-16); Calcium 8.9 mg/dL (8.4-10.2); Carbon Dioxide 23 mmol/L (22-29); Chloride 105 mmol/L (96-108); Creatinine Clr Calc Pharmacy 198.4; Estimated Glomerular Filt Rate > 60; Potassium 4.2 mmol/L (3.3-5.1); Sodium 136 mmol/L (135-145); Total Protein 6.8 g/dL (6.5-8.0)
--- NOTE | 2025-02-10 08:37 | PHA.MEDREC ---
Pharmacy Consult ? Medication Reconciliation Pharmacy has completed the medication reconciliation.Med rec complete, utilized list from facility
--- NOTE | 2025-02-10 16:34 | MHC.CM.PN ---
Addendum entered by Ann Deluna 02/11/25 16:20: HCP/MOTHER, JOE DIAZ [phone] IS AWARE PT IS AT [facility] [place] AND HAS BEEN GETTING UPDATES FROM STAFF AT BEDSIDE SHE UNDERSTANDS SHE WILL BE CONTACTED WHEN A DC DATE IS IDENTIFIED Original Note: PT IS FROM A DETENTION IN [place] HE IS DEPENDENT FOR ALL CARE BED BOUND/CONSTANTIN LIFT AT BASELINE IS STAFFED 05/10 AND PT IS ACTIVE WITH [facility] FOR TUE/SAT FLUSHES AND 2X/MO CATHETER CHANGES HCP ON FILE PCP: MARIBELL WELLS DCP: RETURN TO , [facility]SPORT STAFF IN ROOM, THEY WILL HAVE THE NECESSARY PAPERWORK FOR MD TO SIGN AT DC PER STAFF MEMBER, SEE DCS CAN BE WRITTEN ON THE FIRST PAGE, THERE ARE TWO PLACES FOR MD TO SIGN (HIGHLIGHTED IN BLUE) AND NEW MEDS WOULD BE ADDED TO SECOND PAGE
[2025-02-11] VITALS (7 sets, daily range): BP systolic 127–138; BP diastolic 65–87; PULSE 95–138; RESP 18–20; TEMP 36.4–37.7; O2SAT 94–96
[2025-02-11] MEDS: Lactated Ringers 1,000 ML 125 ML IVCONT ×3 (00:53→18:15)
--- NOTE | 2025-02-11 05:09 | PM.EVENT ---
Event Note Date of Service: 02/11/25 Event Note: Received message from lab, one of two Blood Cultures posiitve for GPC, no MRSA or Staph. Pt is currently on ABX therapy. This likely is a contaminant so will hold off on upgrading ABX as pt remains afebrile. Time Spent With Patient Time: Total time managing care of this patient today ____ minutes.
--- NOTE | 2025-02-11 08:26 | HO.PM.IMPN ---
Subjective Subjective Date of Service: 02/11/25 Interval History: Two sets of blood cultures drawn on admission positive for Gram-positive cocci in clusters , repeated TTE ordered We will consider Infectious Disease consult on a nonurgent basis in a very chronically ill Gram-positive bacteremia patient Review of Systems Review of Systems: Yes Unobtainable due to mental condition and Unobtainable due to mental status Physical Exam Exam: Exam: General: AOx0, nonverbal at baseline-per the care staff at the bedside-this is his baseline Resp: Mild bilateral crackles CVS: S1, S2, RRR GI: G-tube area CDI, functioning-initiated G-tube feed Neuro: Somnolent, unable to perform neuro Skin examination deferred-wound care consulted Psych: Unable to assess secondary to baseline chronic psychiatric medical conditions Vital Signs: Vital Signs: Last Vital Signs Temp 98.7 F 02/11/25 08:08 Pulse 116 H 02/11/25 08:08 Resp 18 02/11/25 08:08 BP 131/65 02/11/25 08:08 Pulse Ox 94 02/11/25 08:08 O2 Del Method Room Air 02/11/25 08:08 BMI result Body Mass Index 29.8 Objective Data Active Medications Acetaminophen (Acetaminophen 325 Mg Tablet) 650 mg G-TUBE Q8H PRN PRN Reason: HEADACHE/MILD PAIN/FEVER>100 Albuterol/Ipratropium (Albuterol/Iprat 2.5/0.5mg 3 Ml Ampul.Neb) 3 ml INHALE Q4H PRN PRN Reason: Shortness of Breath/Wheezing Amitriptyline HCl (Amitriptyline Hcl 50 Mg Tablet) 100 mg G-TUBE BEDTIME [facility] Last Admin: 02/10/25 21:25 Dose: 100 mg Documented By: DAMON Ascorbic Acid (Ascorbic Acid 500 Mg Tablet) 500 mg G-TUBE BID [facility] Last Admin: 02/10/25 21:25 Dose: 500 mg Documented By: DAMON Atorvastatin Calcium (Atorvastatin Calcium 10 Mg Tablet) 10 mg G-TUBE BEDTIME [facility] Last Admin: 02/10/25 21:26 Dose: 10 mg Documented By: DAMON Baclofen (Baclofen 20 Mg Tablet) 40 mg G-TUBE TID [facility] Last Admin: 02/10/25 21:26 Dose: 40 mg Documented By: DAMON Bisacodyl (Bisacodyl 10 Mg Supp.Rect) 10 mg PA DAILY PRN PRN Reason: Constipation Doxycycline Monohydrate (Doxycycline Monohydrate 100 Mg Capsule) 100 mg G-TUBE BID PRN PRN Reason: CATHETER CHANGE Enoxaparin Sodium (Enoxaparin Sodium 40 Mg/0.4 Ml Syringe) 40 mg SUBCUT Q24H [facility] Last Admin: 02/10/25 07:47 Dose: 40 mg Documented By: DARYL Epinephrine (Epinephrine 1 Mg/Ml Vial) 0.3 mg IM Q15M PRN PRN Reason: Anaphylaxis Famotidine (Famotidine 20 Mg Tablet) 20 mg G-TUBE BID [facility] Last Admin: 02/10/25 21:25 Dose: 20 mg Documented By: DAMON Gabapentin (Gabapentin 100 Mg Capsule) 200 mg G-TUBE TID [facility] Last Admin: 02/10/25 21:25 Dose: 200 mg Documented By: DAMON Lactated Ringer's (Lr) 1,000 mls @ 125 mls/hr IVCONT .Q8H [facility] Last Admin: 02/11/25 05:37 Dose: 125 mls/hr Documented By: DAMON Piperacillin Sod/Tazobactam (Sod 3.375 gm/ Sodium Chloride) 50 mls @ 100 mls/hr IV Q6H [facility] Last Infusion: 02/11/25 06:51 Dose: Infused Documented By: DAMON Levetiracetam (Levetiracetam 500 Mg Tablet) 500 mg G-TUBE BID [facility] Last Admin: 02/10/25 21:25 Dose: 500 mg Documented By: DAMON Loratadine (Loratadine 10 Mg Tablet) 10 mg G-TUBE DAILY [facility] Magnesium Hydroxide (Milk Of Magnesia 30 Ml Oral.Susp) 30 ml G-TUBE DAILY PRN PRN Reason: Constipation Melatonin (Melatonin 3 Mg Tablet) 6 mg G-TUBE BEDTIME [facility] Last Admin: 02/10/25 21:29 Dose: 6 mg Documented By: DAMON Methenamine Hippurate (Methenamine Hippurate 1 Gm Tablet) 1 gm G-TUBE DAILY [facility] Metoprolol Tartrate (Metoprolol Tartrate 25 Mg Tablet) 25 mg G-TUBE BID [facility]; Protocol Last Admin: 02/10/25 21:26 Dose: 25 mg Documented By: DAMON Ondansetron HCl (Ondansetron Hcl 4 Mg/2 Ml Vial) 4 mg IVPUSH Q8H PRN PRN Reason: Nausea and Vomiting Pantoprazole Sodium (Pantoprazole Sodium 40 Mg/10 Ml Vial) 40 mg IVPUSH DAILY@0630 [facility] Last Admin: 02/11/25 05:35 Dose: 40 mg Documented By: DAMON Polyethylene Glycol (Polyethylene Glycol 3350 17 Gm Powd.Pack) 17 gm G-TUBE BID [facility] Last Admin: 02/10/25 21:29 Dose: 17 gm Documented By: DAMON Senna (Sennosides 8.6 Mg Tablet) 17.2 mg G-TUBE BID [facility] Last Admin: 02/10/25 21:29 Dose: 17.2 mg Documented By: DAMON Sodium Biphosphate/Sodium Phosphate (Sodium Phosphate,Floyd-Dibasic 133 Ml Enema) 118 ml PA DAILY PRN PRN Reason: BM Sodium Chloride (0.9 % Sodium Chloride Flush 3 Ml Syringe) 3 ml IVFLUSH QSHIFT [facility] Last Admin: 02/11/25 07:16 Dose: Not Given Documented By: DARYL Non-Admin Reason: IV Running Vitamin D (Cholecalciferol (Vitamin D3) 25 Mcg Tablet) 50 mcg G-TUBE DAILY [facility] Labs 02/10/25 07:46 02/10/25 07:46 Labs: Laboratory Results - last 24 hr 02/10/25 07:46 Anion Gap 12 Estim Creat Clear Calc 198.4 Estimated GFR > 60 Random Glucose 98 Calcium 8.9 D Total Bilirubin 0.5 AST 19 ALT 18 Alkaline Phosphatase 101 Total Protein 6.8 Albumin 3.5 Microbiology Microbiology Results: Microbiology 02/09/25 22:25 Blood Culture - Preliminary Blood - Venous Prelim: GPC Gram Stain only 02/09/25 22:25 Blood Culture - Preliminary Blood - Venous Prelim: GPC Gram Stain only Assessment and Plan (1) Acute UTI: Status: Acute Plan Patient is a 44-year-old male with history of progressive MS and severe cognitive and physical impairment currently bed-bound, constipation, GI bleed, GERD, seizures, hepatitis-B and C, history of substance abuse, neurogenic bladder with suprapubic catheter in place, depression, HLD, GERD, G-tube, UTI with history of ESBL - VRE - Serratia - Morganella - P Mignon is normally bed-bound and nonverbal per facility staff at his bedside reports that patient was brought in for 2 days of decreased responsiveness and a noted increase in heart rate earlier today of 108. Patient last had his suprapubic catheter changed 01/30, received pre and post antibiotics with doxycycline. Patient then prescribed Bactrim from his urologist on 02/07. Patient found to have Gram-positive bacteremia Gram-positive bacteremia repeating blood cultures Unclear source, however multiple sources could be the etiology, patient unable to verbalize and he has had recurrent sepsis secondary to ESBL UTI and is bed-bound and nonverbal has a suprapubic cath, Repeating blood cultures ID consult on a nonurgent basis Chronic suprapubic catheter due to Neurogenic bladder Suprapubic catheter changed in the ED this admission Patient normally on methenamine and baclofen , continue Constipation/ abdominal distention/ questionable placement of G-tube, ILEUS via KUB G tube patent, resumed tube feeds G tube site CDI Hypertension Resume home meds Hyponatremia resolved with fluids GERD Protonix IV as pt is NPO Progressive MS with severe cognitive and physical impairment Patient requires 24/7 care Turn and position q.2 hours Tube feeds at baseline Per records from senior care, pt takes osmolite 1.5 240 mls BID (10AM, 7pm), prosource 30 mls daily, per staff from senior care pt does eat and drink orally Aspiration precautions in place Nutritional consult placed for p.o. intake-we will be NPO until then DVT prophylaxis: Lovenox Full code status Patient is not bacteremic and needs further workup for infectious etiology Quality Stroke Does the patient have a stroke diagnosis?: No Reason for No Anti-thrombotic by Day Two: N/A - Med Ordered VTE Prior VTE?: No VTE Risk Level:: Medical - moderate - high VTE Device Contraindication: N/A - Device Ordered VTE Drug Contraindication: N/A - Med Ordered
[2025-02-11] MEDS: vancomycin/NS 2,000 MG/500 ML PLAST..BAG 250 MG IV (13:46)
--- NOTE | 2025-02-11 14:11 | PHA.PROG ---
Admission Date/Time: February 10, 2025 00:12 Indication: BACTEREMIA Weight in k.6 kg Adjusted body weight in Kg: [place] body weight in Kg: Obesity Dosing Indication % IBW: Serum Creatinine - Last 168 Hours 02/09/25 02/10/25 22: 07:46 Creatinine 0.64 0.52 Estimated CrCl and GFR - Last 168 Hours 02/09/25 02/10/25 22: 07:46 Estim Creat Clear Calc TNP 198.4 Estimated GFR > 60 > 60 Vancomycin Loading Dose: 2000 MG Current Vancomycin Dosing Regimen: 1500 MG Q 12 HOURS Vancomycin Monitoring using AUC goal of 400 - 600 range with trough as surrogate marker: Date and Time for next Vancomycin Level to be drawn: 02/12/25 1100 Pharmacist Comments on Vancomycin Plan: WILL CHECK LEVEL AFTER 2 DOSES FOR SAFETY Vancomycin dosing will take advantage of [employer] as a clinical decision support tool that uses Bayesian modeling to calculate individual patient's pharmacokinetic parameters and forecast the patient's drug concentration time course with the target goal AUC 24 range of 400 - 600 mg/L/hr.
--- NOTE | 2025-02-11 15:42 | PC.NURSE ---
Addendum entered by Juju Winston RN 02/11/25 19:52: Rate adjusted to 40 ml/hr and patient is tolerating. Will re assess at 01:40 and increase by 10 ml/hr if pt tolerating. Original Note: Tube feeding started at 15:40 on 02/11 at 30ml/hr. Will reassess at 19:40 and increase rate by 10ml if pt tolerating appropriately.
[2025-02-11] MEDS: 0.9 % Sodium Chloride Flush 3 ML SYRINGE IVFLUSH (20:08)
--- NOTE | 2025-02-11 23:41 | PC.NURSE ---
Addendum entered by Juju Winston RN 02/12/25 03:28: Pt tolerating appropriately. Rate will be increased at 03:40 to 60 mL/hr. Will re asses at 07:40 and increased to 70 mL/hr if pt tolerating. Original Note: Tube feeding started at 15:40 on 02/11 at 30ml/hr. Pt tolerating appropriately and increased to 50 mL/hr at 11:40. Will re assess at 03:40 and increase to 60 mL if pt tolerating.
[2025-02-12] VITALS (7 sets, daily range): BP systolic 113–151; BP diastolic 76–85; PULSE 107–130; RESP 16–19; TEMP 36.8–37.6; O2SAT 90–93; BMI 30.6
--- NOTE | 2025-02-12 07:00 | CA_ITS ---
Transthoracic Echocardiogram Patient (Last, First, Middle): Noe Vieira, Gender: Male Date of : 1980 Age: 44 Procedure Date: 02/12/2025 Procedure Type: Transthoracic Echocardiogram Location: S3E Height: 175.26 cm Weight: 91.17 kg BSA: 2.07 m2 Heart Rate: bpm BP: 130 / 76 mmHg Insurance Special Agent: Referring MD: Marissa Cedeno MD Symptoms: G+B Study Quality: Technically Difficult due to pt position ECG Rhythm: Sinus tachycardia Conclusions: - The left ventricular systolic function is normal. The visually estimated ejection fraction is between 60-65%. - No obvious valvular pathology seen on this study. Findings Left Ventricle Normal left ventricular cavity size. There is mildly increased left ventricular wall thickness. The left ventricular systolic function is normal. The visually estimated ejection fraction is between 60-65%. There is no evidence of regional wall motion abnormalities. Diastolic function is normal for age. Right Ventricle Normal right ventricular cavity size and systolic function. Atria Both atria are normal in size. Aortic Valve The aortic valve was not well visualized. There is no aortic valve stenosis. There is no aortic valve regurgitation. Mitral Valve The mitral valve appears normal. There is no mitral valve regurgitation. There is no mitral valve stenosis. Pulmonic Valve The pulmonic valve is likely normal. Tricuspid Valve There is trace tricuspid valve regurgitation. There is no evidence of pulmonary hypertension. Great Vessels The asc aorta is normal in size. Venous The inferior vena cava was not well visualized. Pericardium/Pleural There is a trivial pericardial effusion. Prior Study Comparison No prior study available for comparison. Recommendations, Care & Conclusions No obvious valvular pathology seen on this study. Measurements 2D Linear Measurements IVSd: 1.21 0.6-0.9/0.6-1.0 cm LVIDd: 4.36 3.9-5.3/4.2-5.9 cm LVIDd Index: 2.11 2.4-3.2/2.2-3.1 cm/m2 LVIDs: 2.48 2.0-3.6 cm LVPWd: 1.24 0.7-1.1 cm Ao Root: 3.60 2.1-3.5 cm LA Diam: 2.20 2.7-3.8/3.0-4.0 cm LAIDs Index: 1.06 1.5-2.3 cm/m2 LV Mass: 242.26 67-162/88-224 g LV Mass Index: 117.03 43-95/49-115 g/m2 LVOT Diam: 2.50 3.0+(-)1.3 cm Mitral Valve MV Pk E: 0.44 MV PK A: 0.78 MV Decel Time: 80.00 E/A: 0.60 E'Lateral: 9.25 E'Medial: 14.50 E/E' Med: 3.00 E/E' Lat: 4.70 PHT: 23.00 MVA PHT: 9.57 Decel [place]: 5.43 Aortic Valve AoV Pk Don: 0.80 AoV Mn Don: 0.60 AoV VTI: 0.16 AoV Pk Grad: 3.00 Aov Mn Grad: 2.00 HUSSAIN Cont.VTI: 4.22 LVOT LVOT Pk Don: 0.74 LVOT Mn Don: 0.53 LVOT VTI: 0.14 LVOT Pk Grad: 2.00 LVOT Mn Grad: 1.00 LVOT Diam: 2.50 LVOT Area: 4.91 Diastolic Function MV Pk E: 0.44 MV Pk A: 0.78 E/A: 0.60 E'Medial: 14.50 E/E' Med: 3.00 E' Laterial: 9.25 E/E' Lat: 4.70 Right Ventricle TAPSE (mm): 28.00 TVS' Don: 18.00 Tricuspid Valve TR Pk Don: 1.19 TR Pk Grad: 6.00 RA Press: 3.00 RVSP: 9.00 Great Vessels Aorta Ao Root-2D: 3.60 2.0-3.7 cm Ao Asc: 3.00 2.1-3.4 cm Pulmonary Valve PV Pk Don: 0.85 Peak PV Grad: 3.00 Updated in Other Vendor System with Status of Final Nate Marcos MD electronically signed on 02/13/2025 12:47:35 PM with status of Final
[2025-02-12] MEDS: 0.9 % Sodium Chloride Flush 3 ML SYRINGE IVFLUSH ×2 (09:58→17:35)
--- NOTE | 2025-02-12 10:43 | MHC.CM.PN ---
PER MD ROUNDS, PT WILL REMAIN 1-2 MORE DAYS DCP: RETURN TO VIA BLS
[2025-02-12 10:56] LABS: MANUAL DIFF FLAG NO
[2025-02-12 11:09] LABS: Hematocrit 37.9 % (42.0-52.0); Hemoglobin 12.2 g/dl (14.0-18.0); Imm Gran Abs Auto 0.02 X10*3/uL (0.00-0.03); Imm Gran Pct Auto 0.3 % (0.0-0.4); Lymphocytes Absolute Auto 1.4 X10*3/uL (1.2-4.9); Mean Corpuscular HGB Conc 32.2 g/dl (31.0-36.0); Mean Corpuscular Hemoglobin 29.7 pg (27.0-33.0); Mean Corpuscular Volume 92.2 fL (80.0-98.0); NRBC Abs Auto 0.000 X10*3/uL (0.0-0.012); NRBC Pct Auto 0.0 /100WBC (0.0-0.2); Platelet Count 290 X10*3/uL (160-400); Red Blood Count 4.11 X10*6/uL (4.60-5.80); White Blood Count 7.9 X10*3/uL (4.8-10.8)
--- NOTE | 2025-02-12 11:21 | HE.PHANOTE ---
Re Vanco Random back at 11.3, predicted true trough ~12 mg/dL. A little low for Bacteremia, will change to 1250mg q8h with a projected trough of ~17 and AUC of 555 mg/L*hr
[2025-02-12 12:04] LABS: Alanine Aminotransferase 24 U/L (0-40); Albumin Level 3.7 g/dL (3.5-5.0); Alkaline Phosphatase 119 U/L (39-117); Anion Gap 12 (12-20); Aspartate Amino Transferase 25 U/L (5-37); Blood Urea Nitrogen 11 mg/dL (9-16); Calcium 9.0 mg/dL (8.4-10.2); Carbon Dioxide 24 mmol/L (22-29); Chloride 104 mmol/L (96-108); Creatinine Clr Calc Pharmacy 186.4; Estimated Glomerular Filt Rate > 60; Magnesium 2.0 mg/dL (1.6-2.6); Potassium 4.2 mmol/L (3.3-5.1); Sodium 136 mmol/L (135-145); Total Protein 7.5 g/dL (6.5-8.0)
--- NOTE | 2025-02-12 12:08 | MHC.CLN ---
NUTRITION PATIENT WITH POSSIBLE ILEUS. DISCONTINUE TUBE FEED AND PATIENT IS NPO. TAKES OSMOLITE 1.5 VIA BOLUS FEEDING AT NURSING HOME AND PUREE DIET. WHEN ABLE TO RESUME TUBE FEEDING, RECOMMEND OSMOLITE 1.5 AT 55 ML PER HOUR CONTINUOUS. FREE WATER FLUSHES 240 ML Q 6 HOURS. WILL PROVIDE 1980 KCALS (25.4 KCALS/KG CMW), 83 G PROTEIN (1.07 G/KG CMW), 1966 ML TOTAL FREE WATER FROM FORMULA AND FLUSHES (25.2 ML/KG CMW). WHEN ABLE, START OSMOLITE 1.5 AT 20 ML PER HOUR, INCREASE BY 10 ML EVERY 4 HOURS TO MAX GOAL RATE OF 55 ML PER HOUR. FOLLOW FOR GI STATUS, TUBE FEED TOLERANCE AND POSSIBLE PO INTAKE. MAY RESUME BOLUS TUBE FEEDING ABLE UPON DISCHARGE. SEE CLINICAL NUTRITION ASSESSMENT.
--- NOTE | 2025-02-12 14:52 | W.PM.IDCN ---
History of Present Illness Data of Consult Service Date: 02/12/25 Requesting physician: Marissa Cedeno Primary Care Provider: Reji Lu MD HPI Reason for consult: UTI,neurogenic bladder He presents with tachycardia and change in mental status. He has progressive MS and is nonverbal. He has neurogenic bladder and Mcg[place] and had catheter replaced on 01/30. He had prophylactic Doxycycline given and then given po Bactrim per Urology. He has blood cultures negative and urine contamination. Review of Systems Review of Systems: Yes Unobtainable due to mental condition PMFSH Past Medical History Medical History Constipation History of substance abuse Former smoker GERD (gastroesophageal reflux disease) HTN (hypertension) GI bleed Hepatitis B Anemia Afib Failure to thrive in adult Seizures Neuromyopathy UTI (urinary tract infection) Suprapubic catheter Hepatitis C Multiple sclerosis Family History Family history: reviewed and not pertinent Surgical History Surgical History Hx of cystoscopy Social History Social History Household Members: None Household Members Other:: Fpc Housing: Intermediate Housing Other:: Fpc Do you presently have visiting nurse or other home services: No Alcohol intake: never 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 Tobacco Use Status: Former Tobacco user Tobacco use type: Cigarette Smoked in Last 30 Days: No e-Cigarette/Vaping Use: Never Used Second Hand Smoke Exposure: No Use of substances other than those prescribed or required for medical reasons: No Currently Displaying Signs/Symptoms of Drug Intoxication Withdrawal: No Advance Directives: Yes Advance Directives on File: Yes Advance Directives Date on File: 09/02/23 Do you have a plan to hurt others: No Plan Recently lost weight without trying: No Nutrition Risks: On aspiration precautions and Receiving home tube feeding or CPN Poor oral hygiene: No service: No Current occupational status: disabled Meds Allergies Allergy/AdvReac Type Severity Reaction Status Date / Time bee pollen (BEE STINGS) Allergy Severe Anaphylaxis Verified 02/09/25 23:03 Active Medications: Current Medications Acetaminophen (Acetaminophen 325 Mg Tablet) 650 mg G-TUBE Q8H PRN PRN Reason: HEADACHE/MILD PAIN/FEVER>100 Amitriptyline HCl (Amitriptyline Hcl 50 Mg Tablet) 100 mg G-TUBE BEDTIME [facility] Last Admin: 02/11/25 20:08 Dose: 100 mg Ascorbic Acid (Ascorbic Acid 500 Mg Tablet) 500 mg G-TUBE BID [facility] Last Admin: 02/12/25 09:58 Dose: 500 mg Atorvastatin Calcium (Atorvastatin Calcium 10 Mg Tablet) 10 mg G-TUBE BEDTIME [facility] Last Admin: 02/11/25 20:08 Dose: 10 mg Baclofen (Baclofen 20 Mg Tablet) 40 mg G-TUBE TID [facility] Last Admin: 02/12/25 09:57 Dose: 40 mg Bisacodyl (Bisacodyl 10 Mg Supp.Rect) 10 mg PA DAILY PRN PRN Reason: Constipation Doxycycline Monohydrate (Doxycycline Monohydrate 100 Mg Capsule) 100 mg G-TUBE BID PRN PRN Reason: CATHETER CHANGE Enoxaparin Sodium (Enoxaparin Sodium 40 Mg/0.4 Ml Syringe) 40 mg SUBCUT Q24H [facility] Last Admin: 02/12/25 09:57 Dose: 40 mg Epinephrine (Epinephrine 1 Mg/Ml Vial) 0.3 mg IM Q15M PRN PRN Reason: Anaphylaxis Famotidine (Famotidine 20 Mg Tablet) 20 mg G-TUBE BID [facility] Last Admin: 02/12/25 09:57 Dose: 20 mg Gabapentin (Gabapentin 100 Mg Capsule) 200 mg G-TUBE TID [facility] Last Admin: 02/12/25 09:58 Dose: 200 mg Piperacillin Sod/Tazobactam (Sod 3.375 gm/ Sodium Chloride) 50 mls @ 100 mls/hr IV Q6H [facility] Last Infusion: 02/12/25 14:22 Dose: Infused Vancomycin HCl 1,250 mg/ (Sodium Chloride) 250 mls @ 166.667 mls/hr IV Q8H [facility] Last Admin: 02/12/25 14:19 Dose: 166.67 mls/hr Levetiracetam (Levetiracetam 500 Mg Tablet) 500 mg G-TUBE BID [facility] Last Admin: 02/12/25 09:58 Dose: 500 mg Loratadine (Loratadine 10 Mg Tablet) 10 mg G-TUBE DAILY [facility] Last Admin: 02/12/25 09:58 Dose: 10 mg Magnesium Hydroxide (Milk Of Magnesia 30 Ml Oral.Susp) 30 ml G-TUBE DAILY PRN PRN Reason: Constipation Melatonin (Melatonin 3 Mg Tablet) 6 mg G-TUBE BEDTIME [facility] Last Admin: 02/11/25 20:08 Dose: 6 mg Methenamine Hippurate (Methenamine Hippurate 1 Gm Tablet) 1 gm G-TUBE DAILY [facility] Last Admin: 02/12/25 09:58 Dose: 1 gm Metoprolol Tartrate (Metoprolol Tartrate 25 Mg Tablet) 25 mg G-TUBE BID [facility]; Protocol Last Admin: 02/12/25 09:57 Dose: 25 mg Ondansetron HCl (Ondansetron Hcl 4 Mg/2 Ml Vial) 4 mg IVPUSH Q8H PRN PRN Reason: Nausea and Vomiting Pantoprazole Sodium (Pantoprazole Sodium 40 Mg/10 Ml Vial) 40 mg IVPUSH DAILY@0630 [facility] Last Admin: 02/12/25 05:41 Dose: 40 mg Pharmacy Consult (Consult Rx Vancomycin Dosing) 1 each MISCELLANE DAILY PRN PRN Reason: Consult order Polyethylene Glycol (Polyethylene Glycol 3350 17 Gm Powd.Pack) 17 gm G-TUBE BID [facility] Last Admin: 02/12/25 09:57 Dose: 17 gm Senna (Sennosides 8.6 Mg Tablet) 17.2 mg G-TUBE BID [facility] Last Admin: 02/12/25 09:57 Dose: 17.2 mg Sodium Biphosphate/Sodium Phosphate (Sodium Phosphate,Letcher-Dibasic 133 Ml Enema) 118 ml PA DAILY PRN PRN Reason: BM Sodium Chloride (0.9 % Sodium Chloride Flush 3 Ml Syringe) 3 ml IVFLUSH QSHIFT [facility] Last Admin: 02/12/25 09:58 Dose: 3 ml Vitamin D (Cholecalciferol (Vitamin D3) 25 Mcg Tablet) 50 mcg G-TUBE DAILY [facility] Last Admin: 02/12/25 09:57 Dose: 50 mcg Home Medications ?Medication ?Instructions ?Recorded ?Confirmed ?Last Taken ?Type sodium phosphates 19 gram-7 118 ml PA DAILY PRN BM 08/30/23 02/10/25 Unknown History gram/118 mL enema (Fleet Enema) epinephrine 0.3 mg/0.3 mL 0.3 mg IM Q15M PRN Anaphylaxis 02/27/24 02/10/25 Unknown History injection, auto-injector gabapentin 100 mg capsule 200 mg feeding tube TID 02/27/24 02/10/25 Unknown History polyethylene glycol 3350 17 17 g feeding tube BID 02/27/24 02/10/25 Unknown History gram/dose oral powder cetirizine 10 mg tablet 10 mg PO DAILY 12/07/24 02/10/25 Unknown History cholecalciferol (vitamin D3) 50 50 mcg PO DAILY 12/07/24 02/10/25 Unknown History mcg (2,000 unit) tablet levetiracetam 500 mg tablet 500 mg PO BID 12/07/24 02/10/25 Unknown History melatonin 5 mg disintegrating 5 mg PO BEDTIME 12/07/24 02/10/25 Unknown History tablet sennosides 8.6 mg tablet (senna) 17.2 mg PO BID 12/07/24 02/10/25 Unknown History acetaminophen 325 mg tablet 650 mg feeding tube Q8H PRN 02/10/25 02/10/25 Unknown History HEADACHE/MILD PAIN/FEVER>100 alpha lipoic acid 600 mg capsule 600 mg PO BID 02/10/25 02/10/25 Unknown History doxycycline monohydrate 100 mg 100 mg feeding tube BID PRN 02/10/25 02/10/25 Unknown History tablet CATHETER CHANGE Physical Exam Vital Signs: Vital Signs: Last Vital Signs Temp 99.6 F 02/12/25 12:00 Pulse 107 H 02/12/25 12:00 Resp 18 02/12/25 12:00 BP 127/83 02/12/25 12:00 Pulse Ox 92 02/12/25 12:00 O2 Del Method Room Air 02/12/25 12:00 BMI result Body Mass Index 30.6 Const: General: cooperative HEENT: Head: Yes normal to inspection Face and sinus: Yes normal facial exam Mouth: Normal oral and palatal mucosa present Teeth and gingiva: dentition normal Eyes: General: appearance normal, both eyes and all related structures Pupils: Equal, round and reactive pupils present Resp: Effort & Inspection: normal respiratory effort Cardio: Rate: regular rate Rhythm: regular rhythm GI: Palpation (GI): Soft to palpation and nontender : General: Yes no CVA tenderness Back/Spine/Pelvis: Back: no CVA tenderness Skin: General skin exam: no rashes or lesions noted Neuro: Other: doesnt speak Cranial nerves: Yes Equal, round and reactive pupils present Extrem: General: Yes normal to inspection Psych: Appearance: grossly normal Results Labs 02/12/25 10:03 02/12/25 10:03 Labs: Short CBC 02/12/25 Range/Units 10:03 WBC 7.9 (4.8-10.8) X10*3/uL Hgb 12.2 L (14.0-18.0) g/dl Hct 37.9 L (42.0-52.0) % Plt Count 290 (160-400) X10*3/uL BMP 02/12/25 10:03 Sodium 136 Potassium 4.2 Chloride 104 Carbon Dioxide 24 BUN 11 Creatinine 0.56 Calcium 9.0 Liver Function 02/12/25 Range/Units 10:03 Total Bilirubin 0.4 (0.0-1.0) mg/dL AST 25 (5-37) U/L ALT 24 (0-40) U/L Alkaline Phosphatase 119 H (39-117) U/L Albumin 3.7 (3.5-5.0) g/dL Microbiology Microbiology Results: Microbiology 02/11/25 11:01 Blood - Venous Blood Culture - Preliminary No growth after 24 hours. 02/11/25 11:01 Blood - Venous Blood Culture - Preliminary No growth after 24 hours. 02/09/25 22:25 Blood - Venous Blood Culture - Preliminary Coag negative Staphylococcus 02/09/25 22:25 Blood - Venous Blood Culture - Preliminary Coag negative Staphylococcus 02/09/25 Unknown Urine clean catch Urine Culture - Final 02/10/25 03:13 Urine Other - Suprapubic Urine Culture - Final Assessment and Plan (1) UTI (urinary tract infection): Status: Acute Plan No organisms seen He has received Doxycycline and Bactrim He is now on Vancomycin and Zosyn Likely reason for mental status changes UTI. Would continue Vancomycin and Zosyn. If all cultures negative Gtube Augmentin for a week.
--- NOTE | 2025-02-12 15:57 | P.PNIM_ITS ---
Subjective Subjective Date of Service: 02/12/25 Interval History: Hold tube feeds until surgery hence rule out ileus Repeat blood cultures do not have any results ID consulted Review of Systems Review of Systems: Yes all other systems are reviewed and are negative Physical Exam 2 Exam: Exam: General: AOx0, nonverbal at baseline-per the care staff at the bedside-this is his baseline Resp: Mild bilateral crackles CVS: S1, S2, RRR GI: G-tube area CDI, functioning-initiated G-tube feed Neuro: Somnolent, unable to perform neuro Skin examination deferred-wound care consulted Psych: Unable to assess secondary to baseline chronic psychiatric medical conditions Vital Signs: Vital Signs: Last Vital Signs Temp 99.6 F 02/12/25 12:00 Pulse 107 H 02/12/25 12:00 Resp 18 02/12/25 12:00 BP 127/83 02/12/25 12:00 Pulse Ox 92 02/12/25 12:00 O2 Del Method Room Air 02/12/25 12:00 BMI result Body Mass Index 30.6 Objective Data Active Medications Acetaminophen (Acetaminophen 325 Mg Tablet) 650 mg G-TUBE Q8H PRN PRN Reason: HEADACHE/MILD PAIN/FEVER>100 Amitriptyline HCl (Amitriptyline Hcl 50 Mg Tablet) 100 mg G-TUBE BEDTIME [facility] Last Admin: 02/11/25 20:08 Dose: 100 mg Documented By: MAGEN Ascorbic Acid (Ascorbic Acid 500 Mg Tablet) 500 mg G-TUBE BID [facility] Last Admin: 02/12/25 09:58 Dose: 500 mg Documented By: OZZIE Atorvastatin Calcium (Atorvastatin Calcium 10 Mg Tablet) 10 mg G-TUBE BEDTIME [facility] Last Admin: 02/11/25 20:08 Dose: 10 mg Documented By: MAGEN Baclofen (Baclofen 20 Mg Tablet) 40 mg G-TUBE TID [facility] Last Admin: 02/12/25 15:25 Dose: Not Given Documented By: OZZIE Non-Admin Reason: Physician Held Med Bisacodyl (Bisacodyl 10 Mg Supp.Rect) 10 mg [place] DAILY PRN PRN Reason: Constipation Doxycycline Monohydrate (Doxycycline Monohydrate 100 Mg Capsule) 100 mg G-TUBE BID PRN PRN Reason: CATHETER CHANGE Enoxaparin Sodium (Enoxaparin Sodium 40 Mg/0.4 Ml Syringe) 40 mg SUBCUT Q24H [facility] Last Admin: 02/12/25 09:57 Dose: 40 mg Documented By: OZZIE Epinephrine (Epinephrine 1 Mg/Ml Vial) 0.3 mg IM Q15M PRN PRN Reason: Anaphylaxis Famotidine (Famotidine 20 Mg Tablet) 20 mg G-TUBE BID [facility] Last Admin: 02/12/25 09:57 Dose: 20 mg Documented By: OZZIE Gabapentin (Gabapentin 100 Mg Capsule) 200 mg G-TUBE TID [facility] Last Admin: 02/12/25 15:25 Dose: Not Given Documented By: OZZIE Non-Admin Reason: Physician Held Med Piperacillin Sod/Tazobactam (Sod 3.375 gm/ Sodium Chloride) 50 mls @ 100 mls/hr IV Q6H [facility] Last Infusion: 02/12/25 14:22 Dose: Infused Documented By: OZZIE Vancomycin HCl 1,250 mg/ (Sodium Chloride) 250 mls @ 166.667 mls/hr IV Q8H [facility] Last Infusion: 02/12/25 15:53 Dose: Infused Documented By: OZZIE Levetiracetam (Levetiracetam 500 Mg Tablet) 500 mg G-TUBE BID [facility] Last Admin: 02/12/25 09:58 Dose: 500 mg Documented By: OZZIE Loratadine (Loratadine 10 Mg Tablet) 10 mg G-TUBE DAILY [facility] Last Admin: 02/12/25 09:58 Dose: 10 mg Documented By: OZZIE Magnesium Hydroxide (Milk Of Magnesia 30 Ml Oral.Susp) 30 ml G-TUBE DAILY PRN PRN Reason: Constipation Melatonin (Melatonin 3 Mg Tablet) 6 mg G-TUBE BEDTIME [facility] Last Admin: 02/11/25 20:08 Dose: 6 mg Documented By: LEFEBVA Methenamine Hippurate (Methenamine Hippurate 1 Gm Tablet) 1 gm G-TUBE DAILY [facility] Last Admin: 02/12/25 09:58 Dose: 1 gm Documented By: OZZIE Metoprolol Tartrate (Metoprolol Tartrate 25 Mg Tablet) 25 mg G-TUBE BID [facility]; Protocol Last Admin: 02/12/25 09:57 Dose: 25 mg Documented By: OZZIE Ondansetron HCl (Ondansetron Hcl 4 Mg/2 Ml Vial) 4 mg IVPUSH Q8H PRN PRN Reason: Nausea and Vomiting Pantoprazole Sodium (Pantoprazole Sodium 40 Mg/10 Ml Vial) 40 mg IVPUSH DAILY@0630 [facility] Last Admin: 02/12/25 05:41 Dose: 40 mg Documented By: MAGEN Pharmacy Consult (Consult Rx Vancomycin Dosing) 1 each MISCELLANE DAILY PRN PRN Reason: Consult order Polyethylene Glycol (Polyethylene Glycol 3350 17 Gm Powd.Pack) 17 gm G-TUBE BID [facility] Last Admin: 02/12/25 09:57 Dose: 17 gm Documented By: OZZIE Senna (Sennosides 8.6 Mg Tablet) 17.2 mg G-TUBE BID [facility] Last Admin: 02/12/25 09:57 Dose: 17.2 mg Documented By: OZZIE Sodium Biphosphate/Sodium Phosphate (Sodium Phosphate,Green-Dibasic 133 Ml Enema) 118 ml [place] DAILY PRN PRN Reason: BM Sodium Chloride (0.9 % Sodium Chloride Flush 3 Ml Syringe) 3 ml IVFLUSH QSHIFT [facility] Last Admin: 02/12/25 09:58 Dose: 3 ml Documented By: OZZIE Vitamin D (Cholecalciferol (Vitamin D3) 25 Mcg Tablet) 50 mcg G-TUBE DAILY [facility] Last Admin: 02/12/25 09:57 Dose: 50 mcg Documented By: OZZIE Labs 02/12/25 10:03 02/12/25 10:03 Labs: Laboratory Results - last 24 hr 02/12/25 10:03 MCV 92.2 MCH 29.7 MCHC 32.2 RDW 11.9 Plt Count 290 MPV 9.4 Immature Gran % (Auto) 0.3 Neut % (Auto) 67.5 Lymph % (Auto) 18.0 L Green % (Auto) 9.6 Eos % (Auto) 4.2 H Baso % (Auto) 0.4 Lymph # (Auto) 1.4 Green # (Auto) 0.8 Eos # (Auto) 0.3 Baso # (Auto) 0.0 Abs Immat Gran (auto) 0.02 Absolute Neuts (auto) 5.4 Absolute Nucleated RBC 0.000 Nucleated RBC % (auto) 0.0 Anion Gap 12 Estim Creat Clear Calc 186.4 Estimated GFR > 60 Random Glucose 154 H Calcium 9.0 Magnesium 2.0 Total Bilirubin 0.4 AST 25 ALT 24 Alkaline Phosphatase 119 H Total Protein 7.5 Albumin 3.7 Random Vancomycin 11.3 L Microbiology Microbiology Results: Microbiology 02/11/25 11:01 Blood Culture - Preliminary Blood - Venous No growth after 24 hours. 02/11/25 11:01 Blood Culture - Preliminary Blood - Venous No growth after 24 hours. 02/09/25 22:25 Blood Culture - Preliminary Blood - Venous Coag negative Staphylococcus 02/09/25 22:25 Blood Culture - Preliminary Blood - Venous Coag negative Staphylococcus Assessment and Plan (1) Acute UTI: Status: Acute Plan Patient is a 44-year-old male with history of progressive MS and severe cognitive and physical impairment currently bed-bound, constipation, GI bleed, GERD, seizures, hepatitis-B and C, history of substance abuse, neurogenic bladder with suprapubic catheter in place, depression, HLD, GERD, G-tube, UTI with history of ESBL - VRE - Serratia - Morganella - P Betitoi is normally bed- bound and nonverbal per facility staff at his bedside reports that patient was brought in for 2 days of decreased responsiveness and a noted increase in heart rate earlier today of 108. Patient last had his suprapubic catheter changed 01/30, received pre and post antibiotics with doxycycline. Patient then prescribed Bactrim from his urologist on 02/07. Patient found to have Gram- positive bacteremia Gram-positive coag-negative staph bacteremia POA blood cultures Unclear source, however multiple sources could be the etiology, patient unable to verbalize and he has had recurrent sepsis secondary to ESBL UTI and is bed- bound and nonverbal has a suprapubic cath, Repeating blood cultures ID consult on a nonurgent basis TTE pending Chronic suprapubic catheter due to Neurogenic bladder Suprapubic catheter changed in the ED this admission Patient normally on methenamine and baclofen , continue Constipation/ abdominal distention/ questionable placement of G-tube, ILEUS via KUB G tube patent, hold her feeds G tube site CDI Hypertension Resume home meds Hyponatremia resolved with fluids GERD Protonix IV as pt is NPO Progressive MS with severe cognitive and physical impairment Patient requires 24/7 care Turn and position q.2 hours Wound care consult Tube feeds at baseline Per records from [facility], pt takes osmolite 1.5 240 mls BID (10AM, 7pm), prosource 30 mls daily, per staff from [facility] pt does eat and drink orally Hold tube feeds until ileus has been ruled out by surgery Aspiration precautions in place Nutritional consult placed for p.o. intake-we will be NPO until then DVT prophylaxis: Lovenox Full code status Patient is not bacteremic and needs further workup for infectious etiology Quality Stroke Does the patient have a stroke diagnosis?: No Reason for No Anti-thrombotic by Day Two: N/A - Med Ordered VTE Prior VTE?: No VTE Risk Level:: Medical - moderate - high VTE Device Contraindication: N/A - Device Ordered VTE Drug Contraindication: N/A - Med Ordered
--- NOTE | 2025-02-12 16:08 | HO.WOUND ---
Wound Consult: Initial 43yr old? admitted to [facility] [place] on 02/10/25 - See progress notes and H&P for detailed history.? Wound consult placed for Wound Care .? Patient is nonverbal baseline and requires assistance with repositions.? Discussed with staff no skin concerns noted at this time. Patient is noted to have red rash to face neck and knees resolving provider aware. No open tissue noted to areas of redness no topical interventions needed at this time. Buttock area assessed and detailed below. 02/12/25 Coccyx Left Ischium Etiology: ??healed pressure injuries noted on Admission Wound Bed: intact pink scar tissue noted - tissues remains blanchable Drainage / Odor: None Rosa wound: ?intact- No Induration, Fluctuance or Warmth noted Goals of Treatment: ? Prevention measures to be employed - off load pressure Q2hr turns, barrier cream to protect from friction and moisture and off load heels from surface of bed . Recommendations: 1. Turn and Reposition every 2 hours and as needed for patient comfort.? Use pillows or wedges to support off loading positions. 2. Off Load all bony prominences with use of pillows and heel boots if needed.? Apply Preventative foams where needed. ? 3. Monitor for incontinence and moisture control, use barrier creams when needed for prevention and treatment. 4. Provide adequate and supplemental nutrition.? 5. Order low air loss mattress. 6. When applicable maintain blood glucose levels per Providers order. Coccyx and Bilateral Ischium - Routine cleansing, apply barrier cream twice daily and prn. Off Load pressure with Q2hr turns and use of pillows. Elevate heels off of surface of bed with use of pillows. May use preventative foam dressing to aid in pressure redistribution. Re-consult wound care Nurse for wound deterioration or wound changes.
[2025-02-13] VITALS (7 sets, daily range): BP systolic 123–137; BP diastolic 79–87; PULSE 85–128; RESP 14–19; TEMP 35.9–36.6; O2SAT 93–97; BMI 28.0
--- NOTE | 2025-02-13 06:04 | PM.CNGS ---
History of Present Illness Consult details Consult date: 02/13/25 Reason for consult: other (ileus) Requesting physician: Marissa Cedeno Narrative: 44 year old male with PMH significant for progressive MS with severe cognitive and physical impairment currently non-verbal and bed-bound living in residential, constipation, seizures, hepatitis-B and C, neurogenic bladder with suprapubic catheter in place, hx of UTI with multiorganism resistance, HLD, GERD, G-tube in place who was initially brought into ED by residential staff for 2 days of decreased responsiveness. Suprapubic catheter reportedly last changed 01/20/2025 with pre and post prophylactic antibiotics and was then started on Bactrim on the evening of 02/07 by his Urologist. He was admitted to the hospitalist service for treatment of a UTI. He was also found to have gram positive bacteremia. He is on IV zosyn and vanco. Work up in the ED included CXR which did not show the tip of the G tube and therefore KUB with gastrograffin admin through the G tube was obtained which showed G tube in stomach as well generalized gaseous distention of bowel loops. There was air in the rectum. General surgery consulted for possible ileus. Patient had initially PEG tube placed in 09/05 for decreased PO intake, failure to thrive and weight loss. G tube last changed 01/24/25 in the ED after it became dislodged. He however does eat and drink orally as well per staff. No reports of vomiting, or other abdominal surgery per staff. Last BM this morning, large and loose per RN. Also had two on 02/11. [facility] staff at bedside state patient more alert and abdomen appears less distended than admission but still not at baseline. Review of Systems Review of Systems: Yes Unobtainable due to mental condition PMFSH Past Medical History Medical History Constipation History of substance abuse Former smoker GERD (gastroesophageal reflux disease) HTN (hypertension) GI bleed Hepatitis B Anemia Afib Failure to thrive in adult Seizures Neuromyopathy UTI (urinary tract infection) Suprapubic catheter Hepatitis C Multiple sclerosis Family History Family history: reviewed and not pertinent Surgical History Surgical History Hx of cystoscopy Social History Social History Household Members: None Household Members Other:: [facility] Housing: Care Home Housing Other:: [facility] Do you presently have visiting nurse or other home services: No Alcohol intake: never Comment: client care coordinator at bedside Patient Tobacco Use Status: Former Tobacco user Tobacco use type: Cigarette Smoked in Last 30 Days: No e-Cigarette/Vaping Use: Never Used Second Hand Smoke Exposure: No Use of substances other than those prescribed or required for medical reasons: No Currently Displaying Signs/Symptoms of Drug Intoxication Withdrawal: No Advance Directives: Yes Advance Directives on File: Yes Advance Directives Date on File: 09/02/23 Do you have a plan to hurt others: No Plan Recently lost weight without trying: No Nutrition Risks: On aspiration precautions and Receiving home tube feeding or CPN Poor oral hygiene: No service: No Current occupational status: disabled Meds Allergies Allergy/AdvReac Type Severity Reaction Status Date / Time bee pollen (BEE STINGS) Allergy Severe Anaphylaxis Verified 02/09/25 23:03 Active Medications: Current Medications Acetaminophen (Acetaminophen 325 Mg Tablet) 650 mg G-TUBE Q8H PRN PRN Reason: HEADACHE/MILD PAIN/FEVER>100 Amitriptyline HCl (Amitriptyline Hcl 50 Mg Tablet) 100 mg G-TUBE BEDTIME [facility] Last Admin: 02/12/25 20:05 Dose: Not Given Ascorbic Acid (Ascorbic Acid 500 Mg Tablet) 500 mg G-TUBE BID [facility] Last Admin: 02/12/25 20:05 Dose: Not Given Atorvastatin Calcium (Atorvastatin Calcium 10 Mg Tablet) 10 mg G-TUBE BEDTIME [facility] Last Admin: 02/12/25 20:05 Dose: Not Given Baclofen (Baclofen 20 Mg Tablet) 40 mg G-TUBE TID [facility] Last Admin: 02/12/25 20:05 Dose: Not Given Bisacodyl (Bisacodyl 10 Mg Supp.Rect) 10 mg CO DAILY PRN PRN Reason: Constipation Doxycycline Monohydrate (Doxycycline Monohydrate 100 Mg Capsule) 100 mg G-TUBE BID PRN PRN Reason: CATHETER CHANGE Enoxaparin Sodium (Enoxaparin Sodium 40 Mg/0.4 Ml Syringe) 40 mg SUBCUT Q24H [facility] Last Admin: 02/12/25 09:57 Dose: 40 mg Epinephrine (Epinephrine 1 Mg/Ml Vial) 0.3 mg IM Q15M PRN PRN Reason: Anaphylaxis Famotidine (Famotidine 20 Mg Tablet) 20 mg G-TUBE BID [facility] Last Admin: 02/12/25 20:05 Dose: Not Given Gabapentin (Gabapentin 100 Mg Capsule) 200 mg G-TUBE TID [facility] Last Admin: 02/12/25 20:05 Dose: Not Given Piperacillin Sod/Tazobactam (Sod 3.375 gm/ Sodium Chloride) 50 mls @ 100 mls/hr IV Q6H [facility] Last Infusion: 02/12/25 23:52 Dose: Infused Vancomycin HCl 1,250 mg/ (Sodium Chloride) 250 mls @ 166.667 mls/hr IV Q8H [facility] Last Admin: 02/13/25 04:40 Dose: 166.67 mls/hr Levetiracetam (Levetiracetam 500 Mg Tablet) 500 mg G-TUBE BID [facility] Last Admin: 02/12/25 20:06 Dose: Not Given Loratadine (Loratadine 10 Mg Tablet) 10 mg G-TUBE DAILY [facility] Last Admin: 02/12/25 09:58 Dose: 10 mg Magnesium Hydroxide (Milk Of Magnesia 30 Ml Oral.Susp) 30 ml G-TUBE DAILY PRN PRN Reason: Constipation Melatonin (Melatonin 3 Mg Tablet) 6 mg G-TUBE BEDTIME [facility] Last Admin: 02/12/25 20:06 Dose: Not Given Methenamine Hippurate (Methenamine Hippurate 1 Gm Tablet) 1 gm G-TUBE DAILY [facility] Last Admin: 02/12/25 09:58 Dose: 1 gm Metoprolol Tartrate (Metoprolol Tartrate 25 Mg Tablet) 25 mg G-TUBE BID [facility]; Protocol Last Admin: 02/12/25 20:06 Dose: Not Given Ondansetron HCl (Ondansetron Hcl 4 Mg/2 Ml Vial) 4 mg IVPUSH Q8H PRN PRN Reason: Nausea and Vomiting Pantoprazole Sodium (Pantoprazole Sodium 40 Mg/10 Ml Vial) 40 mg IVPUSH DAILY@0630 [facility] Last Admin: 02/12/25 05:41 Dose: 40 mg Pharmacy Consult (Consult Rx Vancomycin Dosing) 1 each MISCELLANE DAILY PRN PRN Reason: Consult order Polyethylene Glycol (Polyethylene Glycol 3350 17 Gm Powd.Pack) 17 gm G-TUBE BID [facility] Last Admin: 02/12/25 20:06 Dose: Not Given Senna (Sennosides 8.6 Mg Tablet) 17.2 mg G-TUBE BID [facility] Last Admin: 02/12/25 20:06 Dose: Not Given Sodium Biphosphate/Sodium Phosphate (Sodium Phosphate,Coal-Dibasic 133 Ml Enema) 118 ml CO DAILY PRN PRN Reason: BM Sodium Chloride (0.9 % Sodium Chloride Flush 3 Ml Syringe) 3 ml IVFLUSH QSHIFT [facility] Last Admin: 02/12/25 20:34 Dose: Not Given Vitamin D (Cholecalciferol (Vitamin D3) 25 Mcg Tablet) 50 mcg G-TUBE DAILY [facility] Last Admin: 02/12/25 09:57 Dose: 50 mcg Home Medications ?Medication ?Instructions ?Recorded ?Confirmed ?Last Taken ?Type sodium phosphates 19 gram-7 118 ml CO DAILY PRN BM 08/30/23 02/10/25 Unknown History gram/118 mL enema (Fleet Enema) epinephrine 0.3 mg/0.3 mL 0.3 mg IM Q15M PRN Anaphylaxis 02/27/24 02/10/25 Unknown History injection, auto-injector gabapentin 100 mg capsule 200 mg feeding tube TID 02/27/24 02/10/25 Unknown History polyethylene glycol 3350 17 17 g feeding tube BID 02/27/24 02/10/25 Unknown History gram/dose oral powder cetirizine 10 mg tablet 10 mg PO DAILY 12/07/24 02/10/25 Unknown History cholecalciferol (vitamin D3) 50 50 mcg PO DAILY 12/07/24 02/10/25 Unknown History mcg (2,000 unit) tablet levetiracetam 500 mg tablet 500 mg PO BID 12/07/24 02/10/25 Unknown History melatonin 5 mg disintegrating 5 mg PO BEDTIME 12/07/24 02/10/25 Unknown History tablet sennosides 8.6 mg tablet (senna) 17.2 mg PO BID 12/07/24 02/10/25 Unknown History acetaminophen 325 mg tablet 650 mg feeding tube Q8H PRN 02/10/25 02/10/25 Unknown History HEADACHE/MILD PAIN/FEVER>100 alpha lipoic acid 600 mg capsule 600 mg PO BID 02/10/25 02/10/25 Unknown History doxycycline monohydrate 100 mg 100 mg feeding tube BID PRN 02/10/25 02/10/25 Unknown History tablet CATHETER CHANGE Physical Exam Vital Signs: Vital Signs: Last Vital Signs Temp 97.8 F 02/13/25 03:32 Pulse 128 H 02/13/25 03:32 Resp 16 02/13/25 03:32 BP 134/87 02/13/25 03:32 Pulse Ox 93 02/13/25 03:32 O2 Del Method Room Air 02/13/25 03:32 BMI result Body Mass Index 30.6 Const: General: comfortable and no acute distress; No ill appearing Resp: Effort & Inspection: normal respiratory effort and not tachypneic GI: Other: distended and tympanitic to percussion, although improved per residential staff, not at baseline soft no abd scars G tube in place upper abdomen, bolster snug suprapubic catheter in place Palpation (GI): no guarding and not rigid Skin: Other: warm and dry Results Labs 02/12/25 10:03 02/12/25 10:03 Labs: Abnormal lab results 02/12/25 Range/Units 10:03 RBC 4.11 L (4.60-5.80) X10*6/uL Hgb 12.2 L (14.0-18.0) g/dl Hct 37.9 L (42.0-52.0) % Lymph % (Auto) 18.0 L (20-40) % Eos % (Auto) 4.2 H (0-4) % Random Glucose 154 H (60-115) mg/dL Alkaline Phosphatase 119 H (39-117) U/L Random Vancomycin 11.3 L (15-20) mcg/mL Short CBC 02/12/25 Range/Units 10:03 WBC 7.9 (4.8-10.8) X10*3/uL Hgb 12.2 L (14.0-18.0) g/dl Hct 37.9 L (42.0-52.0) % Plt Count 290 (160-400) X10*3/uL BMP 02/12/25 10:03 Sodium 136 Potassium 4.2 Chloride 104 Carbon Dioxide 24 BUN 11 Creatinine 0.56 Calcium 9.0 Liver Function 02/12/25 Range/Units 10:03 Total Bilirubin 0.4 (0.0-1.0) mg/dL AST 25 (5-37) U/L ALT 24 (0-40) U/L Alkaline Phosphatase 119 H (39-117) U/L Albumin 3.7 (3.5-5.0) g/dL Urine 02/09/25 Range/Units 22:40 Urine Color Dark Yellow Urine Appearance Cloudy Urine pH 6.5 (5.0-9.0) Ur Specific [place] >= 1.030 H (1.005-1.025) Urine Protein 30 (1+) H (Neg-Trace) mg/dL Urine Glucose (UA) Negative (Negative) mg/dL All other labs normal. Imaging Abdominal x-ray: report reviewed and image reviewed Assessment and Plan (1) Ileus: Status: Acute Plan 44 year old male with multiple medical comorbidities significant for progressive MS with severe cognitive and physical impairment currently non-verbal and bed-bound living in residential, constipation, seizures, hepatitis-B and C, neurogenic bladder with suprapubic catheter in place, hx of UTI with multiorganism resistance, HLD, GERD, G-tube in place admitted for UTI, bacteremia. KUB revealed distended small and large bowel loops and general surgery therefore consulted. Picture consistent with ileus likely secondary to acute illness compounded by bedbound status. No significant stool burden noted. He has had some BMs since admission with improvement in distention. Abd does remain distended but softly. Ileus appears to be resolving; will obtain KUB to reassess bowel loops. Cont bowel rest, bowel regimen and supportive measures for now. Procedures Date of Service Date of Service: 02/13/25
--- NOTE | 2025-02-13 07:35 | P.PNIM_ITS ---
Subjective Subjective Date of Service: 02/13/25 Interval History: Surgery consulted Repeat imaging consistent with ileus although resolving We will continue to hold tube feeds and p.o. feeds Awaiting repeat sepsis workup, blood culture results Patient having diarrhea at this time-improvement in his abdominal distention since presentation Review of Systems Review of Systems: Yes Unobtainable due to mental condition and Unobtainable due to mental status Physical Exam 2 Exam: Exam: General: AOx0, nonverbal at baseline-per the care staff at the bedside-this is his baseline Resp: Mild bilateral crackles CVS: S1, S2, RRR GI: G-tube area CDI, abdomen less distended, continued to have ileus Neuro: Somnolent, unable to perform neuro Skin examination deferred-wound care consulted Psych: Unable to assess secondary to baseline chronic psychiatric medical conditions Vital Signs: Vital Signs: Last Vital Signs Temp 97.8 F 02/13/25 03:32 Pulse 128 H 02/13/25 03:32 Resp 16 02/13/25 03:32 BP 134/87 02/13/25 03:32 Pulse Ox 93 02/13/25 03:32 O2 Del Method Room Air 02/13/25 03:32 BMI result Body Mass Index 28.0 Objective Data Active Medications Acetaminophen (Acetaminophen 325 Mg Tablet) 650 mg G-TUBE Q8H PRN PRN Reason: HEADACHE/MILD PAIN/FEVER>100 Amitriptyline HCl (Amitriptyline Hcl 50 Mg Tablet) 100 mg G-TUBE BEDTIME [facility] Last Admin: 02/12/25 20:05 Dose: Not Given Documented By: MAGEN Non-Admin Reason: NPO Ascorbic Acid (Ascorbic Acid 500 Mg Tablet) 500 mg G-TUBE BID [facility] Last Admin: 02/12/25 20:05 Dose: Not Given Documented By: MAGEN Non-Admin Reason: NPO Atorvastatin Calcium (Atorvastatin Calcium 10 Mg Tablet) 10 mg G-TUBE BEDTIME [facility] Last Admin: 02/12/25 20:05 Dose: Not Given Documented By: MAGEN Non-Admin Reason: NPO Baclofen (Baclofen 20 Mg Tablet) 40 mg G-TUBE TID [facility] Last Admin: 02/12/25 20:05 Dose: Not Given Documented By: MAGEN Non-Admin Reason: NPO Bisacodyl (Bisacodyl 10 Mg Supp.Rect) 10 mg [place] DAILY PRN PRN Reason: Constipation Doxycycline Monohydrate (Doxycycline Monohydrate 100 Mg Capsule) 100 mg G-TUBE BID PRN PRN Reason: CATHETER CHANGE Enoxaparin Sodium (Enoxaparin Sodium 40 Mg/0.4 Ml Syringe) 40 mg SUBCUT Q24H [facility] Last Admin: 02/12/25 09:57 Dose: 40 mg Documented By: OZZIE Epinephrine (Epinephrine 1 Mg/Ml Vial) 0.3 mg IM Q15M PRN PRN Reason: Anaphylaxis Famotidine (Famotidine 20 Mg Tablet) 20 mg G-TUBE BID [facility] Last Admin: 02/12/25 20:05 Dose: Not Given Documented By: MAGEN Non-Admin Reason: NPO Gabapentin (Gabapentin 100 Mg Capsule) 200 mg G-TUBE TID [facility] Last Admin: 02/12/25 20:05 Dose: Not Given Documented By: MAGEN Non-Admin Reason: NPO Piperacillin Sod/Tazobactam (Sod 3.375 gm/ Sodium Chloride) 50 mls @ 100 mls/hr IV Q6H [facility] Last Infusion: 02/13/25 07:08 Dose: Infused Documented By: ESTEFANI Vancomycin HCl 1,250 mg/ (Sodium Chloride) 250 mls @ 166.667 mls/hr IV Q8H [facility] Last Infusion: 02/13/25 06:16 Dose: Infused Documented By: MAGEN Levetiracetam (Levetiracetam 500 Mg Tablet) 500 mg G-TUBE BID [facility] Last Admin: 02/12/25 20:06 Dose: Not Given Documented By: MAGEN Non-Admin Reason: NPO Loratadine (Loratadine 10 Mg Tablet) 10 mg G-TUBE DAILY [facility] Last Admin: 02/12/25 09:58 Dose: 10 mg Documented By: OZZIE Magnesium Hydroxide (Milk Of Magnesia 30 Ml Oral.Susp) 30 ml G-TUBE DAILY PRN PRN Reason: Constipation Melatonin (Melatonin 3 Mg Tablet) 6 mg G-TUBE BEDTIME [facility] Last Admin: 02/12/25 20:06 Dose: Not Given Documented By: MAGEN Non-Admin Reason: NPO Methenamine Hippurate (Methenamine Hippurate 1 Gm Tablet) 1 gm G-TUBE DAILY [facility] Last Admin: 02/12/25 09:58 Dose: 1 gm Documented By: OZZIE Metoprolol Tartrate (Metoprolol Tartrate 25 Mg Tablet) 25 mg G-TUBE BID [facility]; Protocol Last Admin: 02/12/25 20:06 Dose: Not Given Documented By: MAGEN Non-Admin Reason: NPO Ondansetron HCl (Ondansetron Hcl 4 Mg/2 Ml Vial) 4 mg IVPUSH Q8H PRN PRN Reason: Nausea and Vomiting Pharmacy Consult (Consult Rx Vancomycin Dosing) 1 each MISCELLANE DAILY PRN PRN Reason: Consult order Polyethylene Glycol (Polyethylene Glycol 3350 17 Gm Powd.Pack) 17 gm G-TUBE BID [facility] Last Admin: 02/12/25 20:06 Dose: Not Given Documented By: MAGEN Non-Admin Reason: NPO Senna (Sennosides 8.6 Mg Tablet) 17.2 mg G-TUBE BID [facility] Last Admin: 02/12/25 20:06 Dose: Not Given Documented By: MAGEN Non-Admin Reason: NPO Sodium Biphosphate/Sodium Phosphate (Sodium Phosphate,[place]-Dibasic 133 Ml Enema) 118 ml [place] DAILY PRN PRN Reason: BM Sodium Chloride (0.9 % Sodium Chloride Flush 3 Ml Syringe) 3 ml IVFLUSH QSHIFT [facility] Last Admin: 02/12/25 20:34 Dose: Not Given Documented By: MAGEN Non-Admin Reason: IV Running Vitamin D (Cholecalciferol (Vitamin D3) 25 Mcg Tablet) 50 mcg G-TUBE DAILY [facility] Last Admin: 02/12/25 09:57 Dose: 50 mcg Documented By: OZZIE Labs 02/13/25 11:15 02/13/25 11:15 Labs: Laboratory Results - last 24 hr 02/12/25 10:03 MCV 92.2 MCH 29.7 MCHC 32.2 RDW 11.9 Plt Count 290 MPV 9.4 Immature Gran % (Auto) 0.3 Neut % (Auto) 67.5 Lymph % (Auto) 18.0 L [place] % (Auto) 9.6 Eos % (Auto) 4.2 H Baso % (Auto) 0.4 Lymph # (Auto) 1.4 [place] # (Auto) 0.8 Eos # (Auto) 0.3 Baso # (Auto) 0.0 Abs Immat Gran (auto) 0.02 Absolute Neuts (auto) 5.4 Absolute Nucleated RBC 0.000 Nucleated RBC % (auto) 0.0 Anion Gap 12 Estim Creat Clear Calc 186.4 Estimated GFR > 60 Random Glucose 154 H Calcium 9.0 Magnesium 2.0 Total Bilirubin 0.4 AST 25 ALT 24 Alkaline Phosphatase 119 H Total Protein 7.5 Albumin 3.7 Random Vancomycin 11.3 L Microbiology Microbiology Results: Microbiology 02/11/25 11:01 Blood Culture - Preliminary Blood - Venous No growth after 24 hours. 02/11/25 11:01 Blood Culture - Preliminary Blood - Venous No growth after 24 hours. 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 Patient last had his suprapubic catheter changed 01/30, received pre and post antibiotics with doxycycline. Patient then prescribed Bactrim from his urologist on 02/07. Patient found to have Gram- positive bacteremia and ileus secondary to acute illness Gram-positive coag-negative staph bacteremia POA blood cultures Unclear source, however multiple sources could be the etiology, patient unable to verbalize and he has had recurrent sepsis secondary to ESBL UTI and is bed- bound and nonverbal has a suprapubic cath, Repeating blood cultures negative in the past 48 hours ID consult on a nonurgent basis TTE pending Chronic suprapubic catheter due to Neurogenic bladder Suprapubic catheter changed in the ED this admission Continue methenamine and baclofen Constipation/ abdominal distention/ questionable placement of G-tube, ILEUS via KUB G tube patent, hold her feeds till ileus resolves G tube site CDI Diarrhea- GI and C diff panel Hypertension Resume home meds Hyponatremia resolved with fluids GERD Protonix IV as pt is NPO Progressive MS with severe cognitive and physical impairment Patient requires 24/7 care Turn and position q.2 hours Wound care consult Tube feeds at baseline [facility], pt takes osmolite 1.5 240 mls BID (10AM, 7pm), prosource 30 mls daily, per staff from jail pt does eat and drink orally Hold tube feeds until ileus has resolved Aspiration precautions in place Nutritional consult placed for p.o. intake, when ileus resolves DVT prophylaxis: Lovenox Full code status, guardian - mother This note is constructed using voice recognition software. While every effort has been made to ensure accuracy, pipe smoking machine operator errors may have been included. Quality Stroke Does the patient have a stroke diagnosis?: No Reason for No Anti-thrombotic by Day Two: N/A - Med Ordered VTE Prior VTE?: No VTE Risk Level:: Medical - moderate - high VTE Device Contraindication: N/A - Device Ordered VTE Drug Contraindication: N/A - Med Ordered
--- NOTE | 2025-02-13 10:57 | P.CDIM_ITS ---
PROVIDER RESPONSE TEXT: To clarify, the appropriate diagnosis supported by the clinical indicators: Ileus: Paralytic, neurogenic, adynamic QUERY TEXT: PHYSICIAN'S DOCUMENTATION REQUEST Date of Query: 02/13/2025 09:41 AM EST Patient Name: Noe Vieira Admit Date: 02/10/2025 Dear Marissa Cedeno MD, A review of the medical record indicates additional documentation may be needed. Please review below and update the documentation accordingly. Clinical Indicators: KUB X-Ray 02/10 - Impression - Generalized gaseous distention of bowel loops favoring an ileus. Progress note: Patient requires at least 2 midnight stay for IV antibiotics for UTI, Ileus and hemodynamic monitoring. Based on the above, could you provide further specifics to the documented Ileus for this admission: Ileus Paralytic, mechanical, duodenal, adynamic, obstructive, neurogenic, postoperative, gallstone etc. Other specifics to the Ileus Other (explain) Clinically unable to determine (explain) Thank you, Lucy Thomas, CCS, CDIS Use of terms such as suspected, likely, concern for, or probable (associated with a specific diagnosis that is being evaluated, monitored, or treated as if it exists) are acceptable and can be coded in the inpatient setting, when documented at the time of discharge. Please use your independent medical judgment in providing your response. THIS QUERY IS PART OF THE PERMANENT MEDICAL RECORD
[2025-02-13 11:38] LABS: Hematocrit 37.3 % (42.0-52.0); Hemoglobin 12.8 g/dl (14.0-18.0); Imm Gran Abs Auto 0.11 X10*3/uL (0.00-0.03); Imm Gran Pct Auto 1.1 % (0.0-0.4); Lymphocytes Absolute Auto 1.9 X10*3/uL (1.2-4.9); MANUAL DIFF FLAG SCAN; Mean Corpuscular HGB Conc 34.3 g/dl (31.0-36.0); Mean Corpuscular Hemoglobin 30.4 pg (27.0-33.0); Mean Corpuscular Volume 88.6 fL (80.0-98.0); NRBC Abs Auto 0.000 X10*3/uL (0.0-0.012); NRBC Pct Auto 0.0 /100WBC (0.0-0.2); PLT CLUMP 1; Red Blood Count 4.21 X10*6/uL (4.60-5.80); SCAN SMEAR FLAG 1
[2025-02-13 11:53] LABS: Alanine Aminotransferase 30 U/L (0-40); Albumin Level 3.6 g/dL (3.5-5.0); Alkaline Phosphatase 106 U/L (39-117); Anion Gap 15 (12-20); Aspartate Amino Transferase 33 U/L (5-37); Blood Urea Nitrogen 13 mg/dL (9-16); Calcium 9.3 mg/dL (8.4-10.2); Carbon Dioxide 24 mmol/L (22-29); Chloride 105 mmol/L (96-108); Creatinine Clr Calc Pharmacy 131.9; Estimated Glomerular Filt Rate > 60; Magnesium 2.1 mg/dL (1.6-2.6); Potassium 4.3 mmol/L (3.3-5.1); Sodium 140 mmol/L (135-145); Total Protein 7.4 g/dL (6.5-8.0)
--- NOTE | 2025-02-13 12:11 | HE.PHANOTE ---
SAM Changed dosing to 1500mg Q12H and held for 8 hours per supratherapeutic trough. New predicted trough 17.1, AUC 535. Next trough to be pulled after one day, 02/14 @1999. SCr jumped from 0.56 to 0.76 so will need to monitor that.
[2025-02-13 12:37] LABS: Platelet Count 332 X10*3/uL (160-400)
[2025-02-13 12:38] LABS: White Blood Count 10.4 X10*3/uL (4.8-10.8)
--- NOTE | 2025-02-13 19:45 | PM.IDPN ---
Subjective Subjective Date of Service: 02/12/25 Critical Care Time (minutes): 15 Comment: He has no fever or leukocytosis,doesnt seem to indicate pain Objective Data Labs 02/13/25 11:15 02/13/25 11:15 Labs: Laboratory Results - last 24 hr 02/13/25 11:15 WBC 10.4 RBC 4.21 L Hgb 12.8 L Hct 37.3 L MCV 88.6 MCH 30.4 MCHC 34.3 RDW 11.8 Plt Count 332 MPV 8.9 L Immature Gran % (Auto) 1.1 H Neut % (Auto) 66.2 Lymph % (Auto) 18.2 L [place] % (Auto) 11.3 H Eos % (Auto) 2.6 Baso % (Auto) 0.6 Lymph # (Auto) 1.9 [place] # (Auto) 1.2 Eos # (Auto) 0.3 Baso # (Auto) 0.1 Abs Immat Gran (auto) 0.11 H Absolute Neuts (auto) 6.9 Absolute Nucleated RBC 0.000 Nucleated RBC % (auto) 0.0 Smear Tech's Comments VERIFIED Sodium 140 Potassium 4.3 Chloride 105 Carbon Dioxide 24 Anion Gap 15 BUN 13 Creatinine 0.76 Estim Creat Clear Calc 131.9 Estimated GFR > 60 Random Glucose 105 Calcium 9.3 Magnesium 2.1 Total Bilirubin 0.6 AST 33 ALT 30 Alkaline Phosphatase 106 Total Protein 7.4 Albumin 3.6 Random Vancomycin 22.6 H Microbiology Microbiology Results: Microbiology 02/11/25 11:01 Blood - Venous Blood Culture - Preliminary No growth after 48 hours. 02/11/25 11:01 Blood - Venous Blood Culture - Preliminary No growth after 48 hours. 02/09/25 22:25 Blood - Venous Blood Culture - Preliminary Coag negative Staphylococcus 02/09/25 22:25 Blood - Venous Blood Culture - Preliminary Coag negative Staphylococcus 02/09/25 Unknown Urine clean catch Urine Culture - Final 02/10/25 03:13 Urine Other - Suprapubic Urine Culture - Final Physical Exam Vital Signs: Vital Signs: Last Vital Signs Temp 97.0 F 02/13/25 16:00 Pulse 96 02/13/25 16:00 Resp 19 02/13/25 16:00 BP 133/80 02/13/25 16:00 Pulse Ox 97 02/13/25 16:00 O2 Del Method Room Air 02/13/25 16:00 BMI result Body Mass Index 28.0 Const: General: cooperative HEENT: Head: Yes normal to inspection Face and sinus: Yes normal facial exam Mouth: Normal oral and palatal mucosa present Teeth and gingiva: dentition normal Eyes: General: appearance normal, both eyes and all related structures Pupils: Equal, round and reactive pupils present Resp: Effort & Inspection: normal respiratory effort Cardio: Rate: regular rate Rhythm: regular rhythm GI: Palpation (GI): Soft to palpation and nontender : General: Yes no CVA tenderness Back/Spine/Pelvis: Back: no CVA tenderness Skin: General skin exam: no rashes or lesions noted Neuro: General: moves all extremities Cranial nerves: Yes Equal, round and reactive pupils present Extrem: General: Yes normal to inspection Psych: Other: not interactive,no change Assessment and Plan Assessment and plan (1) Acute UTI: Problem details: there is no organism seen urine coagulase negative staph contaminant blood Status: Acute Assessment and Plan: please stop IV Zosyn and Vancomycin if condition continues to be nonacute and no bacteremia GT Augmentin and Doxycycline for 10 d Time Spent With Patient Time: Total time managing care of this patient today ____ minutes.
[2025-02-14] VITALS (7 sets, daily range): BP systolic 124–187; BP diastolic 77–93; PULSE 76–117; RESP 18–19; TEMP 36–36.8; O2SAT 93–98; BMI 28.0
[2025-02-14 06:27] LABS: MANUAL DIFF FLAG NO
[2025-02-14 06:44] LABS: Hematocrit 36.3 % (42.0-52.0); Hemoglobin 11.9 g/dl (14.0-18.0); Imm Gran Abs Auto 0.03 X10*3/uL (0.00-0.03); Imm Gran Pct Auto 0.3 % (0.0-0.4); Lymphocytes Absolute Auto 1.2 X10*3/uL (1.2-4.9); Mean Corpuscular HGB Conc 32.8 g/dl (31.0-36.0); Mean Corpuscular Hemoglobin 30.1 pg (27.0-33.0); Mean Corpuscular Volume 91.9 fL (80.0-98.0); NRBC Abs Auto 0.000 X10*3/uL (0.0-0.012); NRBC Pct Auto 0.0 /100WBC (0.0-0.2); Platelet Count 322 X10*3/uL (160-400); Red Blood Count 3.95 X10*6/uL (4.60-5.80); White Blood Count 8.7 X10*3/uL (4.8-10.8)
[2025-02-14 06:55] LABS: Alanine Aminotransferase 29 U/L (0-40); Albumin Level 3.6 g/dL (3.5-5.0); Alkaline Phosphatase 99 U/L (39-117); Anion Gap 16 (12-20); Aspartate Amino Transferase 31 U/L (5-37); Blood Urea Nitrogen 19 mg/dL (9-16); Calcium 9.2 mg/dL (8.4-10.2); Carbon Dioxide 23 mmol/L (22-29); Chloride 107 mmol/L (96-108); Creatinine Clr Calc Pharmacy 122.3; Estimated Glomerular Filt Rate > 60; Magnesium 2.1 mg/dL (1.6-2.6); Potassium 3.9 mmol/L (3.3-5.1); Sodium 142 mmol/L (135-145); Total Protein 7.4 g/dL (6.5-8.0)
--- NOTE | 2025-02-14 07:16 | HO.PM.IMPN ---
Subjective Subjective Date of Service: 02/14/25 Interval History: Blood cultures drawn on 02/09/2025 are growing 2 sets of different coag-negative staph Repeat blood cultures drawn on 02/11/2025 are thus far negative after 48 hours We will continue to check abdominal x-ray as the patient is nonverbal and unable to endorse any symptoms hence surgery following for resolution of ileus, currently not requiring an NG tube Review of Systems Review of Systems: Yes Unobtainable due to mental condition and Unobtainable due to mental status Physical Exam Exam: Exam: General: AOx0, nonverbal at baseline-per the care staff at the bedside-this is his baseline Resp: Mild bilateral crackles CVS: S1, S2, RRR GI: G-tube area CDI, abdomen less distended, continued to have ileus Neuro: Somnolent, unable to perform neuro Skin examination deferred-wound care consulted Psych: Unable to assess secondary to baseline chronic psychiatric medical conditions Vital Signs: Vital Signs: Last Vital Signs Temp 96.8 F 02/14/25 04:00 Pulse 83 02/14/25 04:00 Resp 18 02/14/25 04:00 BP 124/82 02/14/25 04:00 Pulse Ox 94 02/14/25 04:00 O2 Del Method Room Air 02/14/25 04:00 BMI result Body Mass Index 28.0 Objective Data Active Medications Acetaminophen (Acetaminophen 325 Mg Tablet) 650 mg G-TUBE Q8H PRN PRN Reason: HEADACHE/MILD PAIN/FEVER>100 Amitriptyline HCl (Amitriptyline Hcl 50 Mg Tablet) 100 mg G-TUBE BEDTIME [facility] Last Admin: 02/13/25 21:04 Dose: Not Given Documented By: JOAO Non-Admin Reason: NPO Ascorbic Acid (Ascorbic Acid 500 Mg Tablet) 500 mg G-TUBE BID [facility] Last Admin: 02/13/25 21:04 Dose: Not Given Documented By: JOAO Non-Admin Reason: NPO Atorvastatin Calcium (Atorvastatin Calcium 10 Mg Tablet) 10 mg G-TUBE BEDTIME [facility] Last Admin: 02/13/25 21:04 Dose: Not Given Documented By: JOAO Non-Admin Reason: NPO Baclofen (Baclofen 20 Mg Tablet) 40 mg G-TUBE TID [facility] Last Admin: 02/13/25 20:45 Dose: 40 mg Documented By: JOAO Bisacodyl (Bisacodyl 10 Mg Supp.Rect) 10 mg [place] DAILY PRN PRN Reason: Constipation Doxycycline Monohydrate (Doxycycline Monohydrate 100 Mg Capsule) 100 mg G-TUBE BID PRN PRN Reason: CATHETER CHANGE Enoxaparin Sodium (Enoxaparin Sodium 40 Mg/0.4 Ml Syringe) 40 mg SUBCUT Q24H [facility] Last Admin: 02/13/25 10:46 Dose: 40 mg Documented By: ESTEFANI Epinephrine (Epinephrine 1 Mg/Ml Vial) 0.3 mg IM Q15M PRN PRN Reason: Anaphylaxis Famotidine (Famotidine 20 Mg Tablet) 20 mg G-TUBE BID [facility] Last Admin: 02/13/25 21:04 Dose: Not Given Documented By: JOAO Non-Admin Reason: NPO Gabapentin (Gabapentin 100 Mg Capsule) 200 mg G-TUBE TID [facility] Last Admin: 02/13/25 20:45 Dose: 200 mg Documented By: JOAO Piperacillin Sod/Tazobactam (Sod 3.375 gm/ Sodium Chloride) 50 mls @ 100 mls/hr IV Q6H [facility] Last Infusion: 02/14/25 07:10 Dose: Infused Documented By: ESTEFANI Vancomycin HCl 1,500 mg/ (Sodium Chloride) 500 mls @ 333.333 mls/hr IV Q12H [facility] Last Infusion: 02/13/25 23:32 Dose: Infused Documented By: JOAO Levetiracetam (Levetiracetam 500 Mg Tablet) 500 mg G-TUBE BID [facility] Last Admin: 02/13/25 20:45 Dose: 500 mg Documented By: JOAO Loratadine (Loratadine 10 Mg Tablet) 10 mg G-TUBE DAILY [facility] Last Admin: 02/13/25 09:29 Dose: Not Given Documented By: ESTEFANI Non-Admin Reason: NPO Magnesium Hydroxide (Milk Of Magnesia 30 Ml Oral.Susp) 30 ml G-TUBE DAILY PRN PRN Reason: Constipation Melatonin (Melatonin 3 Mg Tablet) 6 mg G-TUBE BEDTIME [facility] Last Admin: 02/13/25 21:04 Dose: Not Given Documented By: JOAO Non-Admin Reason: NPO Methenamine Hippurate (Methenamine Hippurate 1 Gm Tablet) 1 gm G-TUBE DAILY [facility] Last Admin: 02/13/25 09:19 Dose: 1 gm Documented By: ESTEFANI Metoprolol Tartrate (Metoprolol Tartrate 25 Mg Tablet) 25 mg G-TUBE BID [facility]; Protocol Last Admin: 02/13/25 20:45 Dose: 25 mg Documented By: JOAO Ondansetron HCl (Ondansetron Hcl 4 Mg/2 Ml Vial) 4 mg IVPUSH Q8H PRN PRN Reason: Nausea and Vomiting Pharmacy Consult (Consult Rx Vancomycin Dosing) 1 each MISCELLANE DAILY PRN PRN Reason: Consult order Polyethylene Glycol (Polyethylene Glycol 3350 17 Gm Powd.Pack) 17 gm G-TUBE BID [facility] Last Admin: 02/13/25 21:04 Dose: Not Given Documented By: JOAO Non-Admin Reason: NPO Senna (Sennosides 8.6 Mg Tablet) 17.2 mg G-TUBE BID [facility] Last Admin: 02/13/25 21:05 Dose: Not Given Documented By: JOAO Non-Admin Reason: NPO Sodium Biphosphate/Sodium Phosphate (Sodium Phosphate,[place]-Dibasic 133 Ml Enema) 118 ml [place] DAILY PRN PRN Reason: BM Sodium Chloride (0.9 % Sodium Chloride Flush 3 Ml Syringe) 3 ml IVFLUSH QSHIFT [facility] Last Admin: 02/14/25 07:10 Dose: Not Given Documented By: ESTEFANI Non-Admin Reason: IV Running Vitamin D (Cholecalciferol (Vitamin D3) 25 Mcg Tablet) 50 mcg G-TUBE DAILY [facility] Last Admin: 02/13/25 09:28 Dose: Not Given Documented By: ESTEFANI Non-Admin Reason: NPO Labs 02/14/25 06:22 02/14/25 06:22 Labs: Laboratory Results - last 24 hr 02/13/25 02/14/25 11:15 06:22 MCV 88.6 91.9 MCH 30.4 30.1 MCHC 34.3 32.8 RDW 11.8 11.9 Plt Count 332 322 MPV 8.9 L 9.0 L Immature Gran % (Auto) 1.1 H 0.3 Neut % (Auto) 66.2 73.2 H Lymph % (Auto) 18.2 L 13.7 L [place] % (Auto) 11.3 H 10.2 Eos % (Auto) 2.6 2.1 Baso % (Auto) 0.6 0.5 Lymph # (Auto) 1.9 1.2 [place] # (Auto) 1.2 0.9 Eos # (Auto) 0.3 0.2 Baso # (Auto) 0.1 0.0 Abs Immat Gran (auto) 0.11 H 0.03 Absolute Neuts (auto) 6.9 6.4 Absolute Nucleated RBC 0.000 0.000 Nucleated RBC % (auto) 0.0 0.0 Smear Tech's Comments VERIFIED Anion Gap 15 16 Estim Creat Clear Calc 131.9 122.3 Estimated GFR > 60 > 60 Random Glucose 105 101 Calcium 9.3 9.2 Magnesium 2.1 2.1 Total Bilirubin 0.6 0.6 AST 33 31 ALT 30 29 Alkaline Phosphatase 106 99 Total Protein 7.4 7.4 Albumin 3.6 3.6 Random Vancomycin 22.6 H Microbiology Microbiology Results: Microbiology 02/11/25 11:01 Blood Culture - Preliminary Blood - Venous No growth after 48 hours. 02/11/25 11:01 Blood Culture - Preliminary Blood - Venous No growth after 48 hours. 02/09/25 22:25 Blood Culture - Preliminary Blood - Venous Coag negative Staphylococcus 02/09/25 22:25 Blood Culture - Preliminary Blood - Venous Coag negative Staphylococcus Assessment and Plan (1) Acute UTI: Status: Acute Plan Patient is a 44-year-old male with history of progressive MS and severe cognitive and physical impairment currently bed-bound, constipation, GI bleed, GERD, seizures, hepatitis-B and C, history of substance abuse, neurogenic bladder with suprapubic catheter in place, depression, HLD, GERD, G-tube, UTI with history of ESBL - VRE - Serratia - Morganella - P Stariellarti is normally bed-bound and nonverbal per facility staff at his bedside reports that patient was brought in for 2 days of decreased responsiveness and a noted increase in heart rate earlier today of 108. Patient last had his suprapubic catheter changed 01/30, received pre and post antibiotics with doxycycline. Patient then prescribed Bactrim from his urologist on 02/07. Patient found to have Gram-positive bacteremia and ileus secondary to acute illness Gram-positive coag-negative staph bacteremia POA blood cultures Unclear source, however multiple sources could be the etiology, patient unable to verbalize and he has had recurrent sepsis secondary to ESBL UTI and is bed-bound and nonverbal has a suprapubic cath, Repeating blood cultures negative in the past 48 hours ID consult TTE pending Chronic suprapubic catheter due to Neurogenic bladder Suprapubic catheter changed in the ED this admission Continue methenamine and baclofen Constipation/ abdominal distention/ questionable placement of G-tube, ILEUS via KUB G tube patent, hold her feeds till ileus resolves G tube site CDI Diarrhea- GI and C diff panel Hypertension Resume home meds Hyponatremia resolved with fluids GERD Protonix IV as pt is NPO Progressive MS with severe cognitive and physical impairment Patient requires 24/7 care Turn and position q.2 hours Wound care consult Tube feeds at baseline Per records from long term, pt takes osmolite 1.5 240 mls BID (10AM, 7pm), prosource 30 mls daily, per staff from long term pt does eat and drink orally Hold tube feeds until ileus has resolved Aspiration precautions in place Nutritional consult placed for p.o. intake, when ileus resolves DVT prophylaxis: Lovenox Full code status, guardian - mother This note is constructed using voice recognition software. While every effort has been made to ensure accuracy, pot washer errors may have been included. Quality Stroke Does the patient have a stroke diagnosis?: No Reason for No Anti-thrombotic by Day Two: N/A - Med Ordered VTE Prior VTE?: No VTE Risk Level:: Medical - moderate - high VTE Device Contraindication: N/A - Device Ordered VTE Drug Contraindication: N/A - Med Ordered
--- NOTE | 2025-02-14 08:40 | P.PNGS_ITS ---
Subjective Subjective Date of Service: 02/14/25 <Sahara Slaughter PA-C - Last Filed: 02/14/25 08:44> 02/14/25 <Vignesh Domingo MD - Last Filed: 02/14/25 15:57> Interval history: Had a few loose BMs yesterday morning but nothing since per RN. Staff in room deny him passing any flatus. <Sahara Slaughter PA-C - Last Filed: 02/14/25 08:44> Physical Exam 2 Vital Signs: Vital Signs: Last Vital Signs Temp 97.8 F 02/14/25 08:00 Pulse 117 H 02/14/25 08:00 Resp 18 02/14/25 08:00 BP 130/77 02/14/25 08:00 Pulse Ox 98 02/14/25 08:00 O2 Del Method Room Air 02/14/25 08:00 BMI result Body Mass Index 28.0 <Sahara Slaughter PA-C - Last Filed: 02/14/25 08:44> Const: General: no acute distress and alert <Sahara Slaughter PA-C - Last Filed: 02/14/25 08:44> Resp: Effort & Inspection: normal respiratory effort and Actively coughing <Sahara Slaughter PA-C - Last Filed: 02/14/25 08:44> GI: Other: G tube in place upper abdomen, suprapubic catheter in place <Sahara Slaughter PA-C - Last Filed: 02/14/25 08:44> Inspection: Yes distended (unchanged) <Sahara Slaughter PA-C - Last Filed: 02/14/25 08:44> Palpation (GI): Soft to palpation, nontender and no guarding <Sahara Slaughter PA-C - Last Filed: 02/14/25 08:44> Percussion: Yes tympanic to percussion <MIKE Pacheco Last Filed: 02/14/25 08:44> Skin: Other: warm and dry <MIKE Pacheco Last Filed: 02/14/25 08:44> Objective Data Active Medications Acetaminophen (Acetaminophen 325 Mg Tablet) 650 mg G-TUBE Q8H PRN PRN Reason: HEADACHE/MILD PAIN/FEVER>100 Amitriptyline HCl (Amitriptyline Hcl 50 Mg Tablet) 100 mg G-TUBE BEDTIME [facility] Last Admin: 02/13/25 21:04 Dose: Not Given Documented By: JOAO Non-Admin Reason: NPO Ascorbic Acid (Ascorbic Acid 500 Mg Tablet) 500 mg G-TUBE BID [facility] Last Admin: 02/13/25 21:04 Dose: Not Given Documented By: JOAO Non-Admin Reason: NPO Atorvastatin Calcium (Atorvastatin Calcium 10 Mg Tablet) 10 mg G-TUBE BEDTIME [facility] Last Admin: 02/13/25 21:04 Dose: Not Given Documented By: JOAO Non-Admin Reason: NPO Baclofen (Baclofen 20 Mg Tablet) 40 mg G-TUBE TID [facility] Last Admin: 02/13/25 20:45 Dose: 40 mg Documented By: JOAO Bisacodyl (Bisacodyl 10 Mg Supp.Rect) 10 mg [place] DAILY PRN PRN Reason: Constipation Doxycycline Monohydrate (Doxycycline Monohydrate 100 Mg Capsule) 100 mg G-TUBE BID PRN PRN Reason: CATHETER CHANGE Enoxaparin Sodium (Enoxaparin Sodium 40 Mg/0.4 Ml Syringe) 40 mg SUBCUT Q24H [facility] Last Admin: 02/13/25 10:46 Dose: 40 mg Documented By: ESTEFANI Epinephrine (Epinephrine 1 Mg/Ml Vial) 0.3 mg IM Q15M PRN PRN Reason: Anaphylaxis Famotidine (Famotidine 20 Mg Tablet) 20 mg G-TUBE BID [facility] Last Admin: 02/13/25 21:04 Dose: Not Given Documented By: JOAO Non-Admin Reason: NPO Gabapentin (Gabapentin 100 Mg Capsule) 200 mg G-TUBE TID [facility] Last Admin: 02/13/25 20:45 Dose: 200 mg Documented By: JOAO Piperacillin Sod/Tazobactam (Sod 3.375 gm/ Sodium Chloride) 50 mls @ 100 mls/hr IV Q6H [facility] Last Infusion: 02/14/25 07:10 Dose: Infused Documented By: ESTEFANI Vancomycin HCl 1,500 mg/ (Sodium Chloride) 500 mls @ 333.333 mls/hr IV Q12H [facility] Last Infusion: 02/13/25 23:32 Dose: Infused Documented By: JOAO Levetiracetam (Levetiracetam 500 Mg Tablet) 500 mg G-TUBE BID [facility] Last Admin: 02/13/25 20:45 Dose: 500 mg Documented By: JOAO Loratadine (Loratadine 10 Mg Tablet) 10 mg G-TUBE DAILY [facility] Last Admin: 02/13/25 09:29 Dose: Not Given Documented By: ESTEFANI Non-Admin Reason: NPO Magnesium Hydroxide (Milk Of Magnesia 30 Ml Oral.Susp) 30 ml G-TUBE DAILY PRN PRN Reason: Constipation Melatonin (Melatonin 3 Mg Tablet) 6 mg G-TUBE BEDTIME [facility] Last Admin: 02/13/25 21:04 Dose: Not Given Documented By: JOAO Non-Admin Reason: NPO Methenamine Hippurate (Methenamine Hippurate 1 Gm Tablet) 1 gm G-TUBE DAILY [facility] Last Admin: 02/13/25 09:19 Dose: 1 gm Documented By: ESTEFANI Metoprolol Tartrate (Metoprolol Tartrate 25 Mg Tablet) 25 mg G-TUBE BID [facility]; Protocol Last Admin: 02/13/25 20:45 Dose: 25 mg Documented By: JOAO Ondansetron HCl (Ondansetron Hcl 4 Mg/2 Ml Vial) 4 mg IVPUSH Q8H PRN PRN Reason: Nausea and Vomiting Pharmacy Consult (Consult Rx Vancomycin Dosing) 1 each MISCELLANE DAILY PRN PRN Reason: Consult order Polyethylene Glycol (Polyethylene Glycol 3350 17 Gm Powd.Pack) 17 gm G-TUBE BID [facility] Last Admin: 02/13/25 21:04 Dose: Not Given Documented By: JOAO Non-Admin Reason: NPO Senna (Sennosides 8.6 Mg Tablet) 17.2 mg G-TUBE BID [facility] Last Admin: 02/13/25 21:05 Dose: Not Given Documented By: JOAO Non-Admin Reason: NPO Sodium Biphosphate/Sodium Phosphate (Sodium Phosphate,[place]-Dibasic 133 Ml Enema) 118 ml NM DAILY PRN PRN Reason: BM Sodium Chloride (0.9 % Sodium Chloride Flush 3 Ml Syringe) 3 ml IVFLUSH QSHIFT [facility] Last Admin: 02/14/25 07:10 Dose: Not Given Documented By: ESTEFANI Non-Admin Reason: IV Running Vitamin D (Cholecalciferol (Vitamin D3) 25 Mcg Tablet) 50 mcg G-TUBE DAILY [facility] Last Admin: 02/13/25 09:28 Dose: Not Given Documented By: ESTEFANI Non-Admin Reason: NPO <Sahara Slaughter PA-C - Last Filed: 02/14/25 08:44> Labs CBC & Chem 7: 02/14/25 06:22 02/14/25 06:22 <Sahara Slaughter PA-C - Last Filed: 02/14/25 08:44> Labs: Laboratory Results - last 24 hr 02/13/25 02/14/25 11:15 06:22 MCV 88.6 91.9 MCH 30.4 30.1 MCHC 34.3 32.8 RDW 11.8 11.9 Plt Count 332 322 MPV 8.9 L 9.0 L Immature Gran % (Auto) 1.1 H 0.3 Neut % (Auto) 66.2 73.2 H Lymph % (Auto) 18.2 L 13.7 L [place] % (Auto) 11.3 H 10.2 Eos % (Auto) 2.6 2.1 Baso % (Auto) 0.6 0.5 Lymph # (Auto) 1.9 1.2 [place] # (Auto) 1.2 0.9 Eos # (Auto) 0.3 0.2 Baso # (Auto) 0.1 0.0 Abs Immat Gran (auto) 0.11 H 0.03 Absolute Neuts (auto) 6.9 6.4 Absolute Nucleated RBC 0.000 0.000 Nucleated RBC % (auto) 0.0 0.0 Smear Tech's Comments VERIFIED Anion Gap 15 16 Estim Creat Clear Calc 131.9 122.3 Estimated GFR > 60 > 60 Random Glucose 105 101 Calcium 9.3 9.2 Magnesium 2.1 2.1 Total Bilirubin 0.6 0.6 AST 33 31 ALT 30 29 Alkaline Phosphatase 106 99 Total Protein 7.4 7.4 Albumin 3.6 3.6 Random Vancomycin 22.6 H <Sahara Slaughter PA-C - Last Filed: 02/14/25 08:44> Microbiology Microbiology Results: Microbiology 02/11/25 11:01 Blood Culture - Preliminary Blood - Venous No growth after 48 hours. 02/11/25 11:01 Blood Culture - Preliminary Blood - Venous No growth after 48 hours. 02/09/25 22:25 Blood Culture - Preliminary Blood - Venous Coag negative Staphylococcus 02/09/25 22:25 Blood Culture - Preliminary Blood - Venous Coag negative Staphylococcus <Sahara Slaughter PA-C - Last Filed: 02/14/25 08:44> Procedures Date of Service Date of Service: 02/14/25 <Sahara Slaughter PA-C - Last Filed: 02/14/25 08:44> 02/14/25 <Vignesh Domingo MD - Last Filed: 02/14/25 15:57> Progress Note: A&P Assessment and plan (1) Ileus: Status: Acute <Sahara Slaughter PA-C - Last Filed: 02/14/25 08:44> Assessment and Plan: He is nonverbal as baseline Abdomen remained soft, benign, no obvious tenderness, no guarding, no rebound KUB films reviewed - consistent with ileus pattern Treat underlying acute illness Follow electrolytes Exam very benign Bowel rest for now Seen and examined independently <Vignesh Domingo MD - Last Filed: 02/14/25 15:57> Assessment and Plan: Found to have small bowel and colonic ileus on KUB. He has been passing some loose stools but remains distended and tympanitic but soft. Electrolytes WNL. Cont bowel rest and supportive measures for now. If no improvement in the next couple of days, will obtain CT scan abd/pelvis to assess. <Sahara Slaughter PA-C - Last Filed: 02/14/25 08:44> Time Spent With Patient Time: Total time managing care of this patient today ____ minutes. <Sahara Slaughter PA-C - Last Filed: 02/14/25 08:44> Quality Stroke Does the patient have a stroke diagnosis?: No <Sahara Salughter PA-C - Last Filed: 02/14/25 08:44> Reason for No Anti-thrombotic by Day Two: N/A - Med Ordered <Sahara Slaughter PA-C - Last Filed: 02/14/25 08:44> VTE Prior VTE?: No <Sahara Slaughter PA-C - Last Filed: 02/14/25 08:44> VTE Risk Level:: Medical - moderate - high <MIKE Pacheco Last Filed: 02/14/25 08:44> VTE Device Contraindication: N/A - Device Ordered <MIKE Pacheco Last Filed: 02/14/25 08:44> VTE Drug Contraindication: N/A - Med Ordered <MIKE Pacheco Last Filed: 02/14/25 08:44>
--- NOTE | 2025-02-14 10:30 | MHC.CLN ---
F/U NPO, CONTINUES WITH BOWEL REST. SKIN WITH HEALED AREAS TO COCCYX AND LEFT ISCHIUM PER WOUND RN. WHEN ABLE TO RESUME TUBE FEEDING, RECOMMEND OSMOLITE 1.5 AT 55 ML PER HOUR CONTINUOUS. FREE WATER FLUSHES 240 ML Q 6 HOURS. WILL PROVIDE 1980 KCALS (25.4 KCALS/KG CMW), 83 G PROTEIN (1.07 G/KG CMW), 1966 ML TOTAL FREE WATER FROM FORMULA AND FLUSHES (25.2 ML/KG CMW). WHEN ABLE, START OSMOLITE 1.5 AT 20 ML PER HOUR, INCREASE BY 10 ML EVERY 4 HOURS TO MAX GOAL RATE OF 55 ML PER HOUR. FOLLOW FOR GI STATUS, TUBE FEED TOLERANCE AND POSSIBLE PO INTAKE. MAY RESUME BOLUS TUBE FEEDING ABLE UPON DISCHARGE.
--- NOTE | 2025-02-14 11:03 | MHC.CM.PN ---
PER MD ROUNDS PATIENT NOT MEDICALLY CLEARED FOR DC. CM WILL CONTINUE TO FOLLOW.
--- NOTE | 2025-02-14 20:37 | HE.PHANOTE ---
Vancomycin addendum: trough came back at 18.2 will keep current dose and regimen, will recheck a level jacek
[2025-02-14] MEDS: 0.9 % Sodium Chloride Flush 3 ML SYRINGE IVFLUSH (22:04)
[2025-02-15 03:49] VITALS: BP 130/81; PULSE 97; RESP 18; TEMP 36.7; O2SAT 96
[2025-02-15 06:00] VITALS: BMI 28.1
[2025-02-15 06:38] LABS: NRBC Abs Auto 0.000 X10*3/uL (0.0-0.012); NRBC Pct Auto 0.0 /100WBC (0.0-0.2); PLT CLUMP 1; SCAN SMEAR FLAG 1
[2025-02-15 06:39] LABS: CDiff Gene PCR NEGATIVE (Negative)
[2025-02-15 06:40] LABS: Hematocrit 39.8 % (42.0-52.0); Hemoglobin 12.4 g/dl (14.0-18.0); Imm Gran Abs Auto 0.04 X10*3/uL (0.00-0.03); Imm Gran Pct Auto 0.5 % (0.0-0.4); Lymphocytes Absolute Auto 1.4 X10*3/uL (1.2-4.9); MANUAL DIFF FLAG SCAN; Mean Corpuscular HGB Conc 31.2 g/dl (31.0-36.0); Mean Corpuscular Hemoglobin 30.0 pg (27.0-33.0); Mean Corpuscular Volume 96.1 fL (80.0-98.0); Red Blood Count 4.14 X10*6/uL (4.60-5.80)
[2025-02-15 06:49] LABS: Alanine Aminotransferase 23 U/L (0-40); Albumin Level 3.6 g/dL (3.5-5.0); Alkaline Phosphatase 92 U/L (39-117); Anion Gap 18 (12-20); Aspartate Amino Transferase 30 U/L (5-37); Blood Urea Nitrogen 23 mg/dL (9-16); Calcium 9.2 mg/dL (8.4-10.2); Carbon Dioxide 18 mmol/L (22-29); Chloride 111 mmol/L (96-108); Creatinine Clr Calc Pharmacy 105.7; Estimated Glomerular Filt Rate > 60; Magnesium 2.5 mg/dL (1.6-2.6); Potassium 4.1 mmol/L (3.3-5.1); Sodium 143 mmol/L (135-145); Total Protein 7.5 g/dL (6.5-8.0)
[2025-02-15 07:00] VITALS: BP 134/82; PULSE 99; RESP 18; TEMP 36.2; O2SAT 97
[2025-02-15 07:14] LABS: White Blood Count 8.5 X10*3/uL (4.8-10.8)
[2025-02-15 08:31] LABS: E. coli EAEC Not Detected (Not Detect.); E. coli EPEC Not Detected (Not Detect.); E. coli ETEC Not Detected (Not Detect.); E. coli STEC Not Detected (Not Detect.); Shigella sp./EIEC Not Detected (Not Detect.)
[2025-02-15] MEDS: 0.9 % Sodium Chloride Flush 3 ML SYRINGE IVFLUSH ×3 (08:50→20:43)
--- NOTE | 2025-02-15 08:52 | P.PNGS_ITS ---
Subjective Subjective Date of Service: 02/15/25 <Sahara Slaughter PA-C - Last Filed: 02/15/25 08:57> 02/15/25 <Vignesh Domingo MD - Last Filed: 02/15/25 11:58> Interval history: Had a large BM this morning per retirement staff. <Sahara Slaughter PA-C - Last Filed: 02/15/25 08:57> Physical Exam 2 Vital Signs: Vital Signs: Last Vital Signs Temp 97.2 F 02/15/25 07:00 Pulse 99 02/15/25 07:00 Resp 18 02/15/25 07:00 BP 134/82 02/15/25 07:00 Pulse Ox 97 02/15/25 07:00 O2 Del Method Room Air 02/15/25 07:00 BMI result Body Mass Index 28.1 <Sahara Slaughter PA-C - Last Filed: 02/15/25 08:57> Const: General: comfortable and no acute distress <MURRAY Pacheco - Last Filed: 02/15/25 08:57> Resp: Effort & Inspection: normal respiratory effort <Sahara Slaughter PA-C - Last Filed: 02/15/25 08:57> GI: Other: distended but improved no longer tympanitic soft, nontender <Sahara Slaughter PA-C - Last Filed: 02/15/25 08:57> Skin: Other: warm and dry <Sahara Slaughter PA-C - Last Filed: 02/15/25 08:57> Objective Data Active Medications Acetaminophen (Acetaminophen 325 Mg Tablet) 650 mg G-TUBE Q8H PRN PRN Reason: HEADACHE/MILD PAIN/FEVER>100 Amitriptyline HCl (Amitriptyline Hcl 50 Mg Tablet) 100 mg G-TUBE BEDTIME [facility] Last Admin: 02/14/25 21:34 Dose: 100 mg Documented By: VARINDER Ascorbic Acid (Ascorbic Acid 500 Mg Tablet) 500 mg G-TUBE BID [facility] Last Admin: 02/15/25 08:49 Dose: 500 mg Documented By: DAGMAR Atorvastatin Calcium (Atorvastatin Calcium 10 Mg Tablet) 10 mg G-TUBE BEDTIME [facility] Last Admin: 02/14/25 21:35 Dose: 10 mg Documented By: VARINDER Baclofen (Baclofen 20 Mg Tablet) 40 mg G-TUBE TID [facility] On Hold: 02/14/25 13:13 Last Admin: 02/14/25 09:24 Dose: 40 mg Documented By: ESTEFANI Bisacodyl (Bisacodyl 10 Mg Supp.Rect) 10 mg [place] DAILY PRN PRN Reason: Constipation Doxycycline Monohydrate (Doxycycline Monohydrate 100 Mg Capsule) 100 mg G-TUBE BID PRN PRN Reason: CATHETER CHANGE Enoxaparin Sodium (Enoxaparin Sodium 40 Mg/0.4 Ml Syringe) 40 mg SUBCUT Q24H [facility] Last Admin: 02/15/25 08:50 Dose: 40 mg Documented By: DAGMAR Epinephrine (Epinephrine 1 Mg/Ml Vial) 0.3 mg IM Q15M PRN PRN Reason: Anaphylaxis Famotidine (Famotidine 20 Mg Tablet) 20 mg G-TUBE BID [facility] Last Admin: 02/15/25 08:49 Dose: 20 mg Documented By: DAGMAR Gabapentin (Gabapentin 100 Mg Capsule) 200 mg G-TUBE TID [facility] On Hold: 02/14/25 13:13 Last Admin: 02/14/25 10:27 Dose: 200 mg Documented By: ESTEFANI Piperacillin Sod/Tazobactam (Sod 3.375 gm/ Sodium Chloride) 50 mls @ 100 mls/hr IV Q6H [facility] Last Infusion: 02/15/25 06:31 Dose: Infused Documented By: VARINDER Vancomycin HCl 1,500 mg/ (Sodium Chloride) 500 mls @ 333.333 mls/hr IV Q12H [facility] Last Infusion: 02/14/25 23:30 Dose: Infused Documented By: VARINDER Levetiracetam (Levetiracetam 500 Mg Tablet) 500 mg G-TUBE BID [facility] Last Admin: 02/15/25 08:49 Dose: 500 mg Documented By: DAGMAR Loratadine (Loratadine 10 Mg Tablet) 10 mg G-TUBE DAILY [facility] Last Admin: 02/15/25 08:50 Dose: 10 mg Documented By: DAGMAR Magnesium Hydroxide (Milk Of Magnesia 30 Ml Oral.Susp) 30 ml G-TUBE DAILY PRN PRN Reason: Constipation Melatonin (Melatonin 3 Mg Tablet) 6 mg G-TUBE BEDTIME [facility] Last Admin: 02/14/25 21:35 Dose: 6 mg Documented By: VARINDER Methenamine Hippurate (Methenamine Hippurate 1 Gm Tablet) 1 gm G-TUBE DAILY [facility] Last Admin: 02/15/25 08:49 Dose: 1 gm Documented By: DAGMAR Metoprolol Tartrate (Metoprolol Tartrate 25 Mg Tablet) 25 mg G-TUBE BID [facility]; Protocol Last Admin: 02/15/25 08:49 Dose: 25 mg Documented By: DAGMAR Ondansetron HCl (Ondansetron Hcl 4 Mg/2 Ml Vial) 4 mg IVPUSH Q8H PRN PRN Reason: Nausea and Vomiting Pharmacy Consult (Consult Rx Vancomycin Dosing) 1 each MISCELLANE DAILY PRN PRN Reason: Consult order Polyethylene Glycol (Polyethylene Glycol 3350 17 Gm Powd.Pack) 17 gm G-TUBE BID [facility] Last Admin: 02/15/25 08:50 Dose: 17 gm Documented By: DAGMAR Senna (Sennosides 8.6 Mg Tablet) 17.2 mg G-TUBE BID [facility] Last Admin: 02/15/25 08:49 Dose: 17.2 mg Documented By: DAGMAR Sodium Biphosphate/Sodium Phosphate (Sodium Phosphate,[place]-Dibasic 133 Ml Enema) 118 ml [place] DAILY PRN PRN Reason: BM Sodium Chloride (0.9 % Sodium Chloride Flush 3 Ml Syringe) 3 ml IVFLUSH QSHIFT [facility] Last Admin: 02/15/25 08:50 Dose: 3 ml Documented By: DAGMAR Vitamin D (Cholecalciferol (Vitamin D3) 25 Mcg Tablet) 50 mcg G-TUBE DAILY [facility] Last Admin: 02/15/25 08:50 Dose: 50 mcg Documented By: DAGMAR <Sahara Slaughter PA-C - Last Filed: 02/15/25 08:57> Labs CBC & Chem 7: 02/15/25 05:26 02/15/25 05:26 <Sahara Slaughter PA-C - Last Filed: 02/15/25 08:57> Labs: Laboratory Results - last 24 hr 02/14/25 02/15/25 02/15/25 20:04 05:26 05:40 MCV 96.1 MCH 30.0 MCHC 31.2 RDW 12.0 Plt Count TNP MPV TNP Immature Gran % (Auto) 0.5 H Neut % (Auto) 69.6 Lymph % (Auto) 17.0 L [place] % (Auto) 10.1 Eos % (Auto) 2.6 Baso % (Auto) 0.2 Lymph # (Auto) 1.4 [place] # (Auto) 0.9 Eos # (Auto) 0.2 Baso # (Auto) 0.0 Abs Immat Gran (auto) 0.04 H Absolute Neuts (auto) 5.9 Absolute Nucleated RBC 0.000 Nucleated RBC % (auto) 0.0 Smear Tech's Comments VERIFIED Anion Gap 18 Estim Creat Clear Calc 105.7 Estimated GFR > 60 Random Glucose 92 Calcium 9.2 Magnesium 2.5 Total Bilirubin 0.6 AST 30 ALT 23 Alkaline Phosphatase 92 Total Protein 7.5 Albumin 3.6 Random Vancomycin 18.2 C. difficile Tox B Gene NEGATIVE <Sahara Slaughter PA-C - Last Filed: 02/15/25 08:57> Microbiology Microbiology Results: Microbiology 02/09/25 22:25 Blood Culture - Final Blood - Venous Coag negative Staphylococcus 02/09/25 22:25 Blood Culture - Final Blood - Venous Coag negative Staphylococcus <Sahara Slaughter PA-C - Last Filed: 02/15/25 08:57> Procedures Date of Service Date of Service: 02/15/25 <Sahara Slaughter PA-C - Last Filed: 02/15/25 08:57> 02/15/25 <Vignesh Domingo MD - Last Filed: 02/15/25 11:58> Progress Note: A&P Assessment and plan (1) Ileus: Status: Acute <Sahara Slaughter PA-C - Last Filed: 02/15/25 08:57> Assessment and Plan: Reported to have large BMs Abdomen remained soft, benign, with no obvious tenderness Stable vital sign Okay to restart tube feeds Treat underlying acute illness that may be causing ileus Doing better overall with regards to the abdomen Seen and examined independently <Vignesh Domingo MD - Last Filed: 02/15/25 11:58> Assessment and Plan: Found to have small bowel and colonic ileus on KUB. Had another large BM this morning and abdomen is much less distended, no longer tympanitic. Remains soft, nontender. Ileus appears to be resolving. Can begin tube feeds and check residuals. <Sahara Slaughter PA-C - Last Filed: 02/15/25 08:57> Time Spent With Patient Time: Total time managing care of this patient today ____ minutes. <Sahara Slaughter PA-C - Last Filed: 02/15/25 08:57> Quality Stroke Does the patient have a stroke diagnosis?: No <Sahara Slaughter PA-C - Last Filed: 02/15/25 08:57> Reason for No Anti-thrombotic by Day Two: N/A - Med Ordered <Sahara Slaughter PA-C - Last Filed: 02/15/25 08:57> VTE Prior VTE?: No <Sahara Slaughter PA-C - Last Filed: 02/15/25 08:57> VTE Risk Level:: Medical - moderate - high <MIKE Pacheco Last Filed: 02/15/25 08:57> VTE Device Contraindication: N/A - Device Ordered <MIKE Pacheco Last Filed: 02/15/25 08:57> VTE Drug Contraindication: N/A - Med Ordered <MIKE Pacheco Last Filed: 02/15/25 08:57>
--- NOTE | 2025-02-15 11:27 | MHC.CLN ---
F/U PER SURGICAL TEAM; CAN START TUBE FEED AND CHECK RESIDUALS RECOMMEND OSMOLITE 1.5 AT MAX GOAL RATE OF 55 ML PER HOUR CONTINUOUS WITH 240 ML FWF Q 6 HOURS TO PROVIDE 1980 KCALS (25.4 KCALS/KG CMW), 83 G PROTEIN (1.07 G/KG CMW), 1966 ML TOTAL FREE WATER FROM FORMULA AND FLUSHES (25.2 ML/KG CMW) START OSMOLITE 1.5 AT 20 ML PER HOUR, INCREASE BY 10 ML EVERY 4 HOURS TO MAX GOAL RATE OF 55 ML PER HOUR FOLLOW FOR GI STATUS, TUBE FEED TOLERANCE MAY RESUME BOLUS TUBE FEEDING ABLE UPON DISCHARGE
[2025-02-15 11:40] VITALS: BP 143/86; PULSE 95; RESP 16; TEMP 36.3; O2SAT 94
--- NOTE | 2025-02-15 16:02 | HO.PM.IMPN ---
Subjective Subjective Date of Service: 02/15/25 Interval History: seen and examined this morning awake, non-verbal; appears comfortable; had BM Review of Systems unable to obtain ROS as pt is nonverbal Physical Exam Vital Signs: Vital Signs: Last Vital Signs Temp 97.4 F 02/15/25 11:40 Pulse 95 02/15/25 11:40 Resp 16 02/15/25 11:40 BP 143/86 H 02/15/25 11:40 Pulse Ox 94 02/15/25 11:40 O2 Del Method Room Air 02/15/25 11:40 BMI result Body Mass Index 28.1 Const: Other: resting in bed, nonverbal; appears comfortable Resp: Other: non-labored Cardio: Rate: regular rate GI: Other: gtube in place; clean and dry Inspection: No distended Palpation (GI): Soft to palpation and nontender Objective Data Active Medications Acetaminophen (Acetaminophen 325 Mg Tablet) 650 mg G-TUBE Q8H PRN PRN Reason: HEADACHE/MILD PAIN/FEVER>100 Amitriptyline HCl (Amitriptyline Hcl 50 Mg Tablet) 100 mg G-TUBE BEDTIME [facility] Last Admin: 02/14/25 21:34 Dose: 100 mg Documented By: VARINDER Amoxicillin/Clavulanate Potassium (Amoxicillin/Potassium Clav 875 Mg Tablet) 875 mg G-TUBE BID [facility] Ascorbic Acid (Ascorbic Acid 500 Mg Tablet) 500 mg G-TUBE BID [facility] Last Admin: 02/15/25 08:49 Dose: 500 mg Documented By: DAGMAR Atorvastatin Calcium (Atorvastatin Calcium 10 Mg Tablet) 10 mg G-TUBE BEDTIME [facility] Last Admin: 02/14/25 21:35 Dose: 10 mg Documented By: VARINDER Baclofen (Baclofen 20 Mg Tablet) 40 mg G-TUBE TID [facility] On Hold: 02/14/25 13:13 Last Admin: 02/14/25 09:24 Dose: 40 mg Documented By: ESTEFANI Bisacodyl (Bisacodyl 10 Mg Supp.Rect) 10 mg [place] DAILY PRN PRN Reason: Constipation Doxycycline Monohydrate (Doxycycline Monohydrate 100 Mg Capsule) 100 mg G-TUBE Q12H LARA Enoxaparin Sodium (Enoxaparin Sodium 40 Mg/0.4 Ml Syringe) 40 mg SUBCUT Q24H [facility] Last Admin: 02/15/25 08:50 Dose: 40 mg Documented By: DAGMAR Epinephrine (Epinephrine 1 Mg/Ml Vial) 0.3 mg IM Q15M PRN PRN Reason: Anaphylaxis Famotidine (Famotidine 20 Mg Tablet) 20 mg G-TUBE BID [facility] Last Admin: 02/15/25 08:49 Dose: 20 mg Documented By: DAGMAR Gabapentin (Gabapentin 100 Mg Capsule) 200 mg G-TUBE TID [facility] On Hold: 02/14/25 13:13 Last Admin: 02/14/25 10:27 Dose: 200 mg Documented By: ESTEFANI Levetiracetam (Levetiracetam 500 Mg Tablet) 500 mg G-TUBE BID [facility] Last Admin: 02/15/25 08:49 Dose: 500 mg Documented By: DAGMAR Loratadine (Loratadine 10 Mg Tablet) 10 mg G-TUBE DAILY [facility] Last Admin: 02/15/25 08:50 Dose: 10 mg Documented By: DAGMAR Magnesium Hydroxide (Milk Of Magnesia 30 Ml Oral.Susp) 30 ml G-TUBE DAILY PRN PRN Reason: Constipation Melatonin (Melatonin 3 Mg Tablet) 6 mg G-TUBE BEDTIME [facility] Last Admin: 02/14/25 21:35 Dose: 6 mg Documented By: VARINDER Methenamine Hippurate (Methenamine Hippurate 1 Gm Tablet) 1 gm G-TUBE DAILY [facility] Last Admin: 02/15/25 08:49 Dose: 1 gm Documented By: DAGMAR Metoprolol Tartrate (Metoprolol Tartrate 25 Mg Tablet) 25 mg G-TUBE BID [facility]; Protocol Last Admin: 02/15/25 08:49 Dose: 25 mg Documented By: DAGMAR Ondansetron HCl (Ondansetron Hcl 4 Mg/2 Ml Vial) 4 mg IVPUSH Q8H PRN PRN Reason: Nausea and Vomiting Pharmacy Consult (Consult Rx Vancomycin Dosing) 1 each MISCELLANE DAILY PRN PRN Reason: Consult order Polyethylene Glycol (Polyethylene Glycol 3350 17 Gm Powd.Pack) 17 gm G-TUBE BID [facility] Last Admin: 02/15/25 08:50 Dose: 17 gm Documented By: DAGMAR Senna (Sennosides 8.6 Mg Tablet) 17.2 mg G-TUBE BID [facility] Last Admin: 02/15/25 08:49 Dose: 17.2 mg Documented By: DAGMAR Sodium Biphosphate/Sodium Phosphate (Sodium Phosphate,[place]-Dibasic 133 Ml Enema) 118 ml [place] DAILY PRN PRN Reason: BM Sodium Chloride (0.9 % Sodium Chloride Flush 3 Ml Syringe) 3 ml IVFLUSH QSHIFT [facility] Last Admin: 02/15/25 08:50 Dose: 3 ml Documented By: DAGMAR Vitamin D (Cholecalciferol (Vitamin D3) 25 Mcg Tablet) 50 mcg G-TUBE DAILY [facility] Last Admin: 02/15/25 08:50 Dose: 50 mcg Documented By: DAGMAR Labs 02/15/25 05:26 02/15/25 05:26 Labs: Laboratory Results - last 24 hr 02/14/25 02/15/25 02/15/25 20:04 05:26 05:40 MCV 96.1 MCH 30.0 MCHC 31.2 RDW 12.0 Plt Count TNP MPV TNP Immature Gran % (Auto) 0.5 H Neut % (Auto) 69.6 Lymph % (Auto) 17.0 L [place] % (Auto) 10.1 Eos % (Auto) 2.6 Baso % (Auto) 0.2 Lymph # (Auto) 1.4 [place] # (Auto) 0.9 Eos # (Auto) 0.2 Baso # (Auto) 0.0 Abs Immat Gran (auto) 0.04 H Absolute Neuts (auto) 5.9 Absolute Nucleated RBC 0.000 Nucleated RBC % (auto) 0.0 Smear Tech's Comments VERIFIED Anion Gap 18 Estim Creat Clear Calc 105.7 Estimated GFR > 60 Random Glucose 92 Calcium 9.2 Magnesium 2.5 Total Bilirubin 0.6 AST 30 ALT 23 Alkaline Phosphatase 92 Total Protein 7.5 Albumin 3.6 Stl C. cayetanensis PCR Not Detected Stool Rotavirus A PCR Not Detected Stl Adenov F 40/41 PCR Not Detected Stool Astrovirus (PCR) Not Detected Stool Campylobacter PCR Not Detected Stool Cryptosporidium PCR Not Detected Stl Sh Tox Pr E STEC PCR Not Detected Stool E coli O157 PCR Not applicable Stl Enterotoxigenic E PCR Not Detected Stool EPEC (PCR) Not Detected Stool EAEC (PCR) Not Detected Stl E. histolytica PCR Not Detected Stool Giardia Lamblia PCR Not Detected Stl P. shigelloides PCR Not Detected Stool Salmonella PCR Not Detected Stool Sapovirus (PCR) Not Detected Stl Shigella/EIEC PCR Not Detected St Y.enterocolitica PCR Not Detected Stool Vibrio (PCR) Not Detected Stl Vibrio cholerae PCR Not Detected Stl Norovirus GI/GII PCR Not Detected Random Vancomycin 18.2 C. 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 Patient last had his suprapubic catheter changed 01/30, received pre and post antibiotics with doxycycline. Patient then prescribed Bactrim from his urologist on 02/07. Patient found to have Gram-positive bacteremia and ileus secondary to acute illness Caog negative staph bacteremia seen by ID, deemed to be likely contaminant given no fever or white count urine culture negative and repeat blood cultures negative echo negative for vegetation per ID stop IV vanco and zosyn and transition to PO doxy and augmentin x 10 days Chronic suprapubic catheter due to Neurogenic bladder Suprapubic catheter changed in the ED this admission Continue methenamine Constipation/Ileus tub feedings previously on hold general surgery following, BM this am, abdomen benign; trial tube feedings Diarrhea- possible overflow GI panel and cdif negative Hypertension continue metoprolol Hyponatremia resolved with fluids GERD Protonix IV for GI ppx Progressive MS with severe cognitive and physical impairment Patient requires 24/7 care Turn and position q.2 hours seen by wound care - no skin concerns at this time baclofen and gabapentin had been placed on hold presumably for lethargy; awake, alert will resume baclofen today and if no excessive sedation resume gabapentin in am seizure d/o continue keppra DVT prophylaxis: Lovenox Full code status, guardian - mother Quality Stroke Does the patient have a stroke diagnosis?: No Reason for No Anti-thrombotic by Day Two: N/A - Med Ordered VTE Prior VTE?: No VTE Risk Level:: Medical - moderate - high VTE Device Contraindication: N/A - Device Ordered VTE Drug Contraindication: N/A - Med Ordered
[2025-02-15 16:58] VITALS: BP 132/80; PULSE 83; RESP 18; TEMP 37.1; O2SAT 96
[2025-02-15 19:41] VITALS: BP 137/78; PULSE 99; RESP 18; TEMP 36; O2SAT 93
[2025-02-15 23:53] VITALS: BP 129/88; PULSE 100; RESP 18; TEMP 36.3; O2SAT 94
[2025-02-16 03:06] VITALS: BP 129/75; PULSE 98; RESP 18; TEMP 36; O2SAT 97
[2025-02-16 06:00] VITALS: BMI 28.3
[2025-02-16 06:40] LABS: Alanine Aminotransferase 20 U/L (0-40); Albumin Level 3.6 g/dL (3.5-5.0); Alkaline Phosphatase 101 U/L (39-117); Anion Gap 14 (12-20); Aspartate Amino Transferase 29 U/L (5-37); Blood Urea Nitrogen 22 mg/dL (9-16); Calcium 9.2 mg/dL (8.4-10.2); Carbon Dioxide 23 mmol/L (22-29); Chloride 113 mmol/L (96-108); Creatinine Clr Calc Pharmacy 96.8; Estimated Glomerular Filt Rate > 60; Magnesium 2.6 mg/dL (1.6-2.6); Potassium 4.1 mmol/L (3.3-5.1); Sodium 146 mmol/L (135-145); Total Protein 7.6 g/dL (6.5-8.0)
[2025-02-16 06:48] LABS: Hematocrit 37.0 % (42.0-52.0); Hemoglobin 11.9 g/dl (14.0-18.0); Imm Gran Abs Auto 0.05 X10*3/uL (0.00-0.03); Imm Gran Pct Auto 0.6 % (0.0-0.4); Lymphocytes Absolute Auto 1.3 X10*3/uL (1.2-4.9); Mean Corpuscular HGB Conc 32.2 g/dl (31.0-36.0); Mean Corpuscular Hemoglobin 29.8 pg (27.0-33.0); Mean Corpuscular Volume 92.7 fL (80.0-98.0); NRBC Abs Auto 0.000 X10*3/uL (0.0-0.012); NRBC Pct Auto 0.0 /100WBC (0.0-0.2); Platelet Count 273 X10*3/uL (160-400); Red Blood Count 3.99 X10*6/uL (4.60-5.80); White Blood Count 8.7 X10*3/uL (4.8-10.8)
[2025-02-16 07:18] VITALS: BP 132/83; PULSE 102; RESP 16; TEMP 36.5; O2SAT 99
--- NOTE | 2025-02-16 08:12 | PM.PNGS ---
Subjective Subjective Date of Service: 02/16/25 Interval history: no events reported by nurse no BMs overnight tolerating tube feeds well Physical Exam Vital Signs: Vital Signs: Last Vital Signs Temp 97.7 F 02/16/25 07:18 Pulse 102 H 02/16/25 07:18 Resp 16 02/16/25 07:18 BP 132/83 02/16/25 07:18 Pulse Ox 99 02/16/25 07:18 O2 Del Method Room Air 02/16/25 07:18 BMI result Body Mass Index 28.3 Const: Other: not communicative, no verbal output General: no acute distress Resp: Effort & Inspection: normal respiratory effort GI: Other: PEG in place, no apparent tenderness Palpation (GI): Soft to palpation and no guarding Objective Data Active Medications Acetaminophen (Acetaminophen 325 Mg Tablet) 650 mg G-TUBE Q8H PRN PRN Reason: HEADACHE/MILD PAIN/FEVER>100 Amitriptyline HCl (Amitriptyline Hcl 50 Mg Tablet) 100 mg G-TUBE BEDTIME [facility]S [facility]CLUDE 234 BEDS AT THE [facility] Last Admin: 02/15/25 20:42 Dose: 100 mg Documented By: VARINDER Amoxicillin/Clavulanate Potassium (Amoxicillin/Potassium Clav 875 Mg Tablet) 875 mg G-TUBE BID [facility]S [facility]CLUDE 234 BEDS AT THE [facility] Last Admin: 02/15/25 20:42 Dose: 875 mg Documented By: VARINDER Ascorbic Acid (Ascorbic Acid 500 Mg Tablet) 500 mg G-TUBE BID COUNTS [facility]CLUDE 234 BEDS AT THE [facility] Last Admin: 02/15/25 20:42 Dose: 500 mg Documented By: VARINDER Atorvastatin Calcium (Atorvastatin Calcium 10 Mg Tablet) 10 mg G-TUBE BEDTIME COUNTS [facility]CLUDE 234 BEDS AT THE [facility] Last Admin: 02/15/25 20:42 Dose: 10 mg Documented By: VARINDER Baclofen (Baclofen 20 Mg Tablet) 40 mg G-TUBE TID COUNTS INCLUDE 234 BEDS AT THE [facility] Last Admin: 02/15/25 20:42 Dose: 40 mg Documented By: VARINDER Bisacodyl (Bisacodyl 10 Mg Supp.Rect) 10 mg [place] DAILY PRN PRN Reason: Constipation Doxycycline Monohydrate (Doxycycline Monohydrate 100 Mg Capsule) 100 mg G-TUBE Q12H COUNTS INCLUDE 234 BEDS AT THE [facility] Last Admin: 02/16/25 02:22 Dose: 100 mg Documented By: VARINDER Enoxaparin Sodium (Enoxaparin Sodium 40 Mg/0.4 Ml Syringe) 40 mg SUBCUT Q24H COUNTS INCLUDE 234 BEDS AT THE [facility] Last Admin: 02/15/25 08:50 Dose: 40 mg Documented By: DAGMAR Epinephrine (Epinephrine 1 Mg/Ml Vial) 0.3 mg IM Q15M PRN PRN Reason: Anaphylaxis Famotidine (Famotidine 20 Mg Tablet) 20 mg G-TUBE BID COUNTS INCLUDE 234 BEDS AT THE [facility] Last Admin: 02/15/25 20:42 Dose: 20 mg Documented By: VARINDER Gabapentin (Gabapentin 100 Mg Capsule) 200 mg G-TUBE TID COUNTS INCLUDE 234 BEDS AT THE [facility] On Hold: 02/14/25 13:13 Last Admin: 02/14/25 10:27 Dose: 200 mg Documented By: ESTEFANI Levetiracetam (Levetiracetam 500 Mg Tablet) 500 mg G-TUBE BID COUNTS INCLUDE 234 BEDS AT THE [facility] Last Admin: 02/15/25 20:42 Dose: 500 mg Documented By: VARINDER Loratadine (Loratadine 10 Mg Tablet) 10 mg G-TUBE DAILY COUNTS INCLUDE 234 BEDS AT THE [facility] Last Admin: 02/15/25 08:50 Dose: 10 mg Documented By: DAGMAR Magnesium Hydroxide (Milk Of Magnesia 30 Ml Oral.Susp) 30 ml G-TUBE DAILY PRN PRN Reason: Constipation Melatonin (Melatonin 3 Mg Tablet) 6 mg G-TUBE BEDTIME COUNTS INCLUDE 234 BEDS AT THE [facility] Last Admin: 02/15/25 20:41 Dose: 6 mg Documented By: VARINDER Methenamine Hippurate (Methenamine Hippurate 1 Gm Tablet) 1 gm G-TUBE DAILY COUNTS INCLUDE 234 BEDS AT THE [facility] Last Admin: 02/15/25 08:49 Dose: 1 gm Documented By: DAGMAR Metoprolol Tartrate (Metoprolol Tartrate 25 Mg Tablet) 25 mg G-TUBE BID COUNTS [facility]CLUDE 234 BEDS AT THE [facility]; Protocol Last Admin: 02/15/25 20:41 Dose: 25 mg Documented By: VARINDER Ondansetron HCl (Ondansetron Hcl 4 Mg/2 Ml Vial) 4 mg IVPUSH Q8H PRN PRN Reason: Nausea and Vomiting Polyethylene Glycol (Polyethylene Glycol 3350 17 Gm Powd.Pack) 17 gm G-TUBE BID COUNTS [facility]CLUDE 234 BEDS AT THE [facility] Last Admin: 02/15/25 20:42 Dose: 17 gm Documented By: VARINDER Senna (Sennosides 8.6 Mg Tablet) 17.2 mg G-TUBE BID COUNTS INCLUDE 234 BEDS AT THE [facility] Last Admin: 02/15/25 20:41 Dose: 17.2 mg Documented By: VARINDER Sodium Biphosphate/Sodium Phosphate (Sodium Phosphate,[place]-Dibasic 133 Ml Enema) 118 ml [place] DAILY PRN PRN Reason: BM Sodium Chloride (0.9 % Sodium Chloride Flush 3 Ml Syringe) 3 ml IVFLUSH QSHIFT COUNTS INCLUDE 234 BEDS AT THE [facility] Last Admin: 02/15/25 20:43 Dose: 3 ml Documented By: VARINDER Vitamin D (Cholecalciferol (Vitamin D3) 25 Mcg Tablet) 50 mcg G-TUBE DAILY COUNTS INCLUDE 234 BEDS AT THE [facility] Last Admin: 02/15/25 08:50 Dose: 50 mcg Documented By: DAGMAR Labs 02/16/25 06:07 02/16/25 05:32 Labs: Laboratory Results - last 24 hr 02/15/25 02/16/25 02/16/25 05:40 05:32 06:07 MCV 92.7 MCH 29.8 MCHC 32.2 RDW 12.0 Plt Count 273 MPV 9.6 Immature Gran % (Auto) 0.6 H Neut % (Auto) 71.6 Lymph % (Auto) 14.4 L [place] % (Auto) 10.5 Eos % (Auto) 2.6 Baso % (Auto) 0.3 Lymph # (Auto) 1.3 [place] # (Auto) 0.9 Eos # (Auto) 0.2 Baso # (Auto) 0.0 Abs Immat Gran (auto) 0.05 H Absolute Neuts (auto) 6.2 Absolute Nucleated RBC 0.000 Nucleated RBC % (auto) 0.0 Anion Gap 14 Estim Creat Clear Calc 96.8 Estimated GFR > 60 Random Glucose 174 H Calcium 9.2 Magnesium 2.6 Total Bilirubin 0.4 AST 29 ALT 20 Alkaline Phosphatase 101 Total Protein 7.6 Albumin 3.6 Stl C. cayetanensis PCR Not Detected Stool Rotavirus A PCR Not Detected Stl Adenov F 40/41 PCR Not Detected Stool Astrovirus (PCR) Not Detected Stool Campylobacter PCR Not Detected Stool Cryptosporidium PCR Not Detected Stl Sh Tox Pr E STEC PCR Not Detected Stool E coli O157 PCR Not applicable Stl Enterotoxigenic E PCR Not Detected Stool EPEC (PCR) Not Detected Stool EAEC (PCR) Not Detected Stl E. histolytica PCR Not Detected Stool Giardia Lamblia PCR Not Detected Stl P. shigelloides PCR Not Detected Stool Salmonella PCR Not Detected Stool Sapovirus (PCR) Not Detected Stl Shigella/EIEC PCR Not Detected St Y.enterocolitica PCR Not Detected Stool Vibrio (PCR) Not Detected Stl Vibrio cholerae PCR Not Detected Stl Norovirus GI/GII PCR Not Detected Procedures Date of Service Date of Service: 02/16/25 Progress Note: A&P Assessment and plan (1) Ileus: Status: Acute Assessment and Plan: tolerating feeds clinically not obstructed abd soft and benign treat underlying acute medical issues may benefit from bowel regimen Time Spent With Patient Time: Total time managing care of this patient today ____ minutes. Quality Stroke Does the patient have a stroke diagnosis?: No Reason for No Anti-thrombotic by Day Two: N/A - Med Ordered VTE Prior VTE?: No VTE Risk Level:: Medical - moderate - high VTE Device Contraindication: N/A - Device Ordered VTE Drug Contraindication: N/A - Med Ordered
[2025-02-16] MEDS: 0.9 % Sodium Chloride Flush 3 ML SYRINGE IVFLUSH (09:21)
--- NOTE | 2025-02-16 11:02 | PM.DS ---
DS: Providers Provider Date of Service: 02/16/25 Date of admission: 02/10/25 00:12 Date of discharge: 02/16/25 Primary care physician: Reji Lu MD Consults: 02/10/25 13:10 Consult to Wound Care Routine Consulting Provider: [facility] [place] Wound Care Management Reason for consultation: Wound care 02/11/25 15:21 Consult to Infectious Diseases Routine Consulting Provider: [facility] [place] Infectious Disease Center Reason for consultation: Gram positive bacteremia 02/12/25 16:01 Consult to General Surgery Routine Consulting Provider: [facility] [place] General Surgeons Reason for consultation: Ileus needs to be ruled out prior to resuming tube feeds or p.o. feeds Attending physician on discharge: Elvin Garcia Discharging clinician: Wanda Denny DS: Diagnosis Discharge Diagnosis (1) Ileus: Status: Acute DS: Summary Hospital Course Hospital Course: From H&P on the day of admission Patient is a 44-year-old male with history of progressive MS and severe cognitive and physical impairment currently bed-bound living in custodial, constipation, GI bleed, GERD, seizures, hepatitis-B and C, history of substance abuse, neurogenic bladder with suprapubic catheter in place, depression, HLD, GERD, G-tube, UTI with history of ESBL - VRE - Serratia - Morganella - P Mignon is normally bed-bound and nonverbal per facility staff at his bedside reports that patient was brought in for 2 days of decreased responsiveness and a noted increase in heart rate earlier today of 108. It has been reported that patient's suprapubic catheter was last replaced on 01/20/2025 and patient has been on antibiotics pre and post catheter change and then on Bactrim per his urologist and this was started on the evening of 02/07. In addition, staff are reporting mild congestion but no productive cough. Per staff patient is currently eating and drinking by mouth, but per medical records patient is receiving G-tube feeds, unclear if patient has had problems with aspiration in the past. Per ED report patient's G-tube was also recently changed 01/24/2025 and he has had no complications since. Patient being admitted for UTI and IV antibiotics. Patient has had history of multiple organisms with multiple susceptibilities and resistant findings. Patient currently on ceftriaxone and urine culture is pending. Antibiotics may require upgrade based on what is resulted. Suprapubic catheter was changed by the ED provider. This is a 44-year-old male with history of progressive MS and severe cognitive and physical impairment currently bed-bound and non-verbal, constipation, GI bleed, GERD, seizures, hepatitis-B and C, history of substance abuse, neurogenic bladder with suprapubic catheter in place, depression, HLD, GERD, G-tube, UTI with history of ESBL - VRE - Serratia - Morganella - P Stuarti brought in for 2 days of decreased responsiveness. Patient last had his suprapubic catheter changed 01/30, received pre and post antibiotics with doxycycline. Patient then prescribed Bactrim from his urologist on 02/07. Patient found to have Gram-positive bacteremia and ileus secondary to acute illness Initially admitted due to lethargy in a patient with chronic suprapubic catheter and concer for UTI Blood cultures grew coagulase negative staph.He was continued on antibiotics. He was seen by ID and deemed to be likely contaminant given no fever or white count urine culture returned negative and repeat blood cultures were negative. echo was negative for vegetation per ID IV vanco and zosyn stopped and transition to PO doxy and augmentin x 10 days. will discharge to complete 4 more days of antibiotics Chronic suprapubic catheter due to Neurogenic bladder Suprapubic catheter changed in the ED this admission Continue methenamine Constipation/Ileus tube feedings initially placed on hold. general surgery following, had BM, resumed tube feedings, tolerating tube feeds with no residuals. abdomen benign, clinically not obstructed. Diarrhea- possible overflow. GI panel and cdif negative, no further diarrhea. Hypernatremia, mild [id number], extra fluid flush bolus given. recommend to repeat lytes early next week Time Attestation Discharge Coordination Time (in mins): 36 Quality: Safe Use of Opioids Does Pt have an Active Cancer Diagnosis on the Problem List?: No Quality: Stroke Does the patient have a stroke diagnosis?: No Physical Exam Vital Signs: Vital Signs: Last Vital Signs Temp 97.7 F 02/16/25 07:18 Pulse 102 H 02/16/25 07:18 Resp 16 02/16/25 07:18 BP 132/83 02/16/25 07:18 Pulse Ox 99 02/16/25 07:18 O2 Del Method Room Air 02/16/25 07:18 BMI result Body Mass Index 28.3 Const: Other: resting in bed, nonverbal; appears comfortable Resp: Other: non-labored Cardio: Rate: regular rate GI: Other: gtube in place; clean and dry Inspection: No distended Palpation (GI): Soft to palpation and nontender DS: Data Data Completed and Pending Completed studies during hospitalization [Text1]: Procedures Insertion of Infusion Device into Upper Vein, Percutaneous Approach (08/29/22) Labs on day of discharge: Laboratory Results - last 24 hr 02/16/25 02/16/25 05:32 06:07 WBC 8.7 RBC 3.99 L Hgb 11.9 L Hct 37.0 L MCV 92.7 MCH 29.8 MCHC 32.2 RDW 12.0 Plt Count 273 MPV 9.6 Immature Gran % (Auto) 0.6 H Neut % (Auto) 71.6 Lymph % (Auto) 14.4 L Mckenzie % (Auto) 10.5 Eos % (Auto) 2.6 Baso % (Auto) 0.3 Lymph # (Auto) 1.3 Mckenzie # (Auto) 0.9 Eos # (Auto) 0.2 Baso # (Auto) 0.0 Abs Immat Gran (auto) 0.05 H Absolute Neuts (auto) 6.2 Absolute Nucleated RBC 0.000 Nucleated RBC % (auto) 0.0 Sodium 146 H Potassium 4.1 Chloride 113 H Carbon Dioxide 23 Anion Gap 14 BUN 22 H Creatinine 1.04 Estim Creat Clear Calc 96.8 Estimated GFR > 60 Random Glucose 174 H Calcium 9.2 Magnesium 2.6 Total Bilirubin 0.4 AST 29 ALT 20 Alkaline Phosphatase 101 Total Protein 7.6 Albumin 3.6 Preliminary micro results at discharge 02/11/25 11:01 Blood Culture - Preliminary Blood - Venous No growth after 48 hours. 02/11/25 11:01 Blood Culture - Preliminary Blood - Venous No growth after 48 hours. Discharge Plan Discharge Anticipated Discharge Date/Time: 02/16/25 11:27 Patient Disposition: Home Health Service Discharge Diagnosis: Ileus bacteremia ruled out hypernatremia Referrals: Reji Lu MD [Primary Care Provider, Internal Medicine] - 1 Week Discharge Medications: New amoxicillin-pot clavulanate 875-125 mg tablet 1 tab feeding tube BID 4 Days Qty: 8 0RF doxycycline monohydrate 100 mg tablet 100 mg feeding tube BID 4 Days Qty: 8 0RF Continued bisacodyl [Dulcolax (bisacodyl)] 10 mg suppository 10 mg FL DAILY PRN (Reason: constipation) Qty: 12 0RF Rx Instructions: If no BM in 3 days. gabapentin 100 mg capsule 200 mg feeding tube TID epinephrine 0.3 mg/0.3 mL Auto-Injector 0.3 mg IM Q15M PRN (Reason: Anaphylaxis) Rx Instructions: for 2 doses polyethylene glycol 3350 17 gram/dose powder 17 g feeding tube BID Fleet Enema 19-7 gram/118 mL Enema 118 ml FL DAILY PRN (Reason: BM) Rx Instructions: If no BM in 4 days atorvastatin 10 mg tablet 10 mg feeding tube BEDTIME Qty: 30 0RF famotidine 20 mg Tablet 20 mg feeding tube BID Qty: 30 0RF magnesium hydroxide [Milk of Magnesia] 400 mg/5 mL Suspension 30 ml feeding tube DAILY PRN (Reason: Constipation) Qty: 355 0RF baclofen 10 mg tablet 40 mg feeding tube TID Qty: 30 0RF amitriptyline 100 mg Tablet 100 mg feeding tube BEDTIME Qty: 30 0RF metoprolol tartrate 25 mg Tablet 25 mg G-tube BID Qty: 60 0RF Protocol: Hold for SBP/HR < HOLD for SBP < : 90 HOLD for HR < : 60 acetaminophen 325 mg tablet 650 mg feeding tube Q8H PRN (Reason: HEADACHE/MILD PAIN/FEVER>100) alpha lipoic acid 600 mg Capsule 600 mg PO BID Rx Instructions: G-TUBE doxycycline monohydrate 100 mg tablet 100 mg feeding tube BID PRN (Reason: CATHETER CHANGE) Rx Instructions: 200 mg PO On day of catheter change; 1 tab before cath change and 1 tab after cath change; sennosides [senna] 8.6 mg tablet 17.2 mg PO BID cetirizine 10 mg tablet 10 mg PO DAILY levetiracetam 500 mg tablet 500 mg PO BID Rx Instructions: G-TUBE cholecalciferol (vitamin D3) 50 mcg (2,000 unit) tablet 50 mcg PO DAILY melatonin 5 mg tablet,disintegrating 5 mg PO BEDTIME methenamine hippurate 1 gram tablet 1 g feeding tube DAILY 90 Days Qty: 90 1RF ascorbic acid (vitamin C) [Vitamin C] 500 mg tablet 500 mg feeding tube BID 90 Days Qty: 180 1RF Discharge Orders: Discharge Order (Routine); Ordered 02/16/25 Ordered By: Wanda Denny Activity on Discharge: As tolerated Stand Alone Forms: Patient Portal Discharge page Print Language: Latvian Care Plan Goals: see below Health Concerns: Ileus bacteremia ruled out Plan of Treatment: Ileus resolved, tolerating tube feeds; there has been no change to prior diet recommend to repeat electrolytes early next week complete antibiotics for 4 more days continue bowel regimen outpatient follow up with PCP/urology as needed Assessment: see discharge summary
--- NOTE | 2025-02-16 11:23 | MHC.CLN ---
F/U TOLERATING GTUBE FEEDING AT MAX GOAL RATE: OSMOLITE 1.5 AT MAX GOAL RATE OF 55 ML PER HOUR CONTINUOUS WITH 240 ML FWF Q 6 HOURS TO PROVIDE 1980 KCALS (25.4 KCALS/KG CMW), 83 G PROTEIN (1.07 G/KG CMW), 1966 ML TOTAL FREE WATER FROM FORMULA AND FLUSHES (25.2 ML/KG CMW) FOLLOW FOR TUBE FEED TOLERANCE. MAY RESUME BOLUS TUBE FEEDING ABLE UPON DISCHARGE.
[2025-02-16 11:25] VITALS: BP 128/85; PULSE 94; RESP 16; TEMP 36.4; O2SAT 97
--- NOTE | 2025-02-16 12:35 | MHC.CM.PN ---
Addendum entered by Ann Deluna 02/16/25 14:00: [facility] NOTIFIED OF DC VIA [facility] AND WILL RESUME SERVICES Addendum entered by Ann Deluna 02/16/25 13:58: PTS MOTHER AT BEDSIDE AND AWARE OF DC Original Note: PT CLEARED TO DC BACK TO [facility] TODAY STAFF MEMBER IN ROOM INFORMED, ORDERS SIGNED BY MD RAMEY SPOKE TO BRITNEY [phone], RN, SHE IS AWARE OF NEW MEDS AND DC. KAROLINE SPOKE TO NA [phone], SHE IS ALSO AWARE OF DC AND ASKED THAT STAFF MEMBER IN ROOM BE GIVEN THE DCS AND TRANSPORT TIME BLS TRANSPORT BOOKED WITH [facility] FOR [id number]
[2025-02-16 15:28] VITALS: BP 132/85; PULSE 105; RESP 16; TEMP 36.4; O2SAT 97
[2025-02-16 19:37] VITALS: BP 131/81; PULSE 99; RESP 18; TEMP 36.6; O2SAT 97
== END 2025-02-16 20:00 | disposition home health service (06) | DRG 247 ==
LOC: HO.ED 23:53 → HO.EDOVER 02-10 00:54 → HO.S3 02-10 01:06
PROVIDERS: Nurse Practitioner Family; Physician Assistant; Student in an Organized Health Care Education/Training Program; Admitting Provider Internal Medicine; Emergency Provider Emergency Medicine; PCP Internal Medicine; Visit Provider Physician Assistant Medical
DX: K56.0 Paralytic ileus (principal); E87.1 Hypo-osmolality and hyponatremia; G35.B0 Primary progressive multiple sclerosis, unspecified; I10 Essential (primary) hypertension; K59.00 Constipation, unspecified; R19.7 Diarrhea, unspecified; N31.9 Neuromuscular dysfunction of bladder, unspecified; Z74.01 Bed confinement status; Z93.1 Gastrostomy status; Z87.891 Personal history of nicotine dependence; Z87.440 Personal history of urinary (tract) infections; Z79.899 Other long term (current) drug therapy
CPT/HCPCS: 36415; 71045; 74018; 80053; 80202; 81001; 83605; 83690; 83735; 85025; 87040; 87086; 87147; 87205; 87493; 87507; 87637; 93005; 93306; 99285; J0696; J1650; J2470; J2543; J3373; J3374; J7120

== ENCOUNTER → 2025-02-09 22:17 | Outpatient (BNV) | payer OTHER, SELFPAY | PROVIDERS: Emergency Provider Emergency Medicine; PCP Internal Medicine; Visit Provider Radiology Diagnostic Radiology | DX: J98.11 Atelectasis (principal); R06.89 Other abnormalities of breathing | CPT/HCPCS: 71045 ==

== ENCOUNTER 2025-02-10 00:12 | Outpatient (BNV) | payer OTHER, SELFPAY | END 2025-02-10 20:02 | PROVIDERS: Admitting Provider Internal Medicine; Emergency Provider Emergency Medicine; PCP Internal Medicine; Visit Provider Internal Medicine | DX: R94.31 Abnormal electrocardiogram [ECG] [EKG] (principal); R00.0 Tachycardia, unspecified | CPT/HCPCS: 93010 ==

== ENCOUNTER 2025-02-10 00:12 | Outpatient (BNV) | payer OTHER, SELFPAY | END 2025-02-13 08:39 | PROVIDERS: Admitting Provider Internal Medicine; Emergency Provider Emergency Medicine; PCP Internal Medicine; Visit Provider Radiology Diagnostic Radiology | DX: K56.7 Ileus, unspecified (principal) | CPT/HCPCS: 74018 ==

== ENCOUNTER 2025-02-10 00:12 | Outpatient (BNV) | payer OTHER, SELFPAY | END 2025-02-12 07:00 | PROVIDERS: Admitting Provider Internal Medicine; Emergency Provider Emergency Medicine; PCP Internal Medicine; Visit Provider Internal Medicine | DX: G61.0 Guillain-Barre syndrome (principal) | CPT/HCPCS: 93306 ==

== ENCOUNTER 2025-02-10 00:12 | Outpatient (BNV) | payer OTHER, SELFPAY | END 2025-02-10 03:08 | PROVIDERS: Admitting Provider Internal Medicine; Emergency Provider Emergency Medicine; PCP Internal Medicine; Visit Provider Radiology Diagnostic Radiology | DX: R14.0 Abdominal distension (gaseous) (principal); Z93.1 Gastrostomy status | CPT/HCPCS: 74018 ==

== ENCOUNTER → 2025-02-10 00:12 | Outpatient (BNV) | payer OTHER, SELFPAY | PROVIDERS: Admitting Provider Internal Medicine; Emergency Provider Emergency Medicine; PCP Internal Medicine; Visit Provider Nurse Practitioner Family | DX: N39.0 Urinary tract infection, site not specified (principal) | CPT/HCPCS: 99222; 99232; 99233; 99499 ==

== ENCOUNTER → 2025-02-10 00:12 | Outpatient (BNV) | payer OTHER, SELFPAY | PROVIDERS: Admitting Provider Internal Medicine; Emergency Provider Emergency Medicine; PCP Internal Medicine; Visit Provider Physician Assistant Surgical | DX: K56.7 Ileus, unspecified (principal) | CPT/HCPCS: 99232 ==

== ENCOUNTER → 2025-02-10 00:12 | Outpatient (BNV) | payer OTHER, SELFPAY | PROVIDERS: Admitting Provider Internal Medicine; Emergency Provider Emergency Medicine; PCP Internal Medicine; Visit Provider Internal Medicine | DX: N39.0 Urinary tract infection, site not specified (principal) | CPT/HCPCS: 99222; 99232 ==

== ENCOUNTER 2025-02-19 17:28 | Emergency (ER) | payer OTHER, SELFPAY ==
--- NOTE | ~2025-02-19 | CT_ITS ---
CLINICAL HISTORY: sepsis --- Additional Notes or Special Instructions: no IV access to do contrast on EJ line CT abdomen and pelvis without contrast Comparison: CT chest 08/26/2024, CT abdomen and pelvis 02/26/2024 Findings: Limited evaluation of soft tissues and solid organs in the absence of IV contrast. Scattered low-attenuation foci throughout the liver appear unchanged. Cholelithiasis without CT evidence of acute cholecystitis. Spleen, adrenal glands, and pancreas are unremarkable. No obstructing renal, ureteral or bladder calculi. Decompressed urinary bladder by Mcghee catheter. Calcified but nonaneurysmal abdominal aorta. No pathologically enlarged lymph nodes. Nondistended stomach. Gastrostomy tube is in place. Normal caliber small bowel. No obstruction. Mild thickening throughout the segments of colon. Colon is partially fluid-filled. No acute osseous abnormality. No lytic or sclerotic osseous lesions. Impression: 1. No acute findings identified in the abdomen or pelvis within limitation of this noncontrast exam. 2. Possible cystitis. 3. Constellation of findings as detailed above may represent component of infectious or inflammatory colitis. 4. Additional chronic/nonacute findings as above. This document has been electronically signed by: Raymon Gallagher MD on 02/19/2025 23:12:29
--- NOTE | ~2025-02-19 | XR_ITS ---
CLINICAL HISTORY: verify placement 1 view chest x-ray Comparison: Chest x-ray earlier on 02/19/2025 Findings: Tip of endotracheal tube terminates 5 cm above the gucci. Lungs are clear. No pleural effusion. No pneumothorax. Normal heart size and central pulmonary vascularity. No acute soft tissue or osseous abnormality. Impression: 1. Satisfactory position of ET tube. 2. No acute cardiopulmonary abnormality. This document has been electronically signed by: Raymon Gallagher MD on 02/20/2025 01:15:26
--- NOTE | ~2025-02-19 | CT_ITS ---
CLINICAL HISTORY: sepsis --- Additional Notes or Special Instructions: no IV access, on EJ line, unable to do contrast CT chest without contrast Comparison: CT pulmonary angiogram on 08/26/2024 Findings: The heart is normal size. The visualized thyroid and mediastinum are unremarkable. The lungs are clear. No pathologically enlarged lymph nodes. Abdominal findings are described in detail in a separate accompanying report. No acute fractures. IMPRESSION: 1. No acute cardiopulmonary abnormality identified. This document has been electronically signed by: Raymon Gallagher MD on 02/19/2025 23:19:32
--- NOTE | ~2025-02-19 | CT_ITS ---
CLINICAL HISTORY: AMS CT head without contrast Comparison: MRI brain 08/05/2023 Findings: There is a large mixed density extra-axial appearing collection extending along left convexity with predominant component centered in the left frontal region. There is severe and substantial mass effect upon the adjacent brain parenchyma with significant [id number] midline shift of 2.3 cm. There is significant effacement of the left lateral ventricle. Similar extra-axial fluid collection is also noted extending along the right frontoparietal convexity. Hyperdensities extending along the central falx and bilateral tentorium. There is a small focus of intraparenchymal appearing hemorrhage along the posterior falx on the left on series 10 image 23 No significant atrophy-like change or white matter disease. There is no sinus or mastoid fluid. The orbits are within normal limits. There is no acute fracture. IMPRESSION: 1. Substantial large volume left-sided mostly low-density extra-axial fluid collection concerning for subacute/ chronic hematoma with substantial mass effect and 2.3 cm [id number] midline shift with associated complete effacement of the left lateral ventricle. Neurosurgical consultation is advised. 2. Smaller acute/subacute appearing hematoma extending along the right frontal parietal convexity. 3. Suspected small focus of intraparenchymal hemorrhage along the posterior falx on the left. 4. Additional findings as above. Follow-up MRI should be considered to further delineate these findings and to exclude presence of other pathologies including possibility of underlying mass lesions. This document has been electronically signed by: Raymon Gallagher MD on 02/19/2025 23:03:14
--- NOTE | ~2025-02-19 | XR_ITS ---
CLINICAL HISTORY: tachy --- Additional Notes or Special Instructions: Patient not ready, procedure being done. - 1835 1 view chest x-ray Comparison: Chest x-ray 02/09/2025 Findings: No consolidation or effusion. Heart size is normal. No acute fracture. IMPRESSION: 1. No acute findings. This document has been electronically signed by: Raymon Gallagher MD on 02/19/2025 20:04:04
[2025-02-19 17:35] VITALS: BP 143/96; BP 169/90; PULSE 120; O2SAT 97; O2SAT 98
[2025-02-19 17:39] VITALS: BP 137/88; PULSE 124; RESP 14; TEMP 37.6; O2SAT 100; BMI 22.8
--- NOTE | 2025-02-19 18:02 | PC.NURSE ---
Pt difficulty stick, provider made aware he will need US line, Dr. Barrow presently at bedside for US IV.
[2025-02-19 18:10] LABS: Appearance Urine Clear; Glucose Urine UA Negative (Negative); PH 5.5 (5.0-9.0); Specific Gravity - Urine 1.010 (1.005-1.025); UMIC TRIGGER UACC YES
--- NOTE | 2025-02-19 18:18 | ECG_ITS ---
Test Reason : tachy Blood Pressure : */* mmHG Vent. Rate : 111 BPM Atrial Rate : 111 BPM P-R Int : 126 ms QRS Dur : 92 ms QT Int : 318 ms P-R-T Axes : 87 67 38 degrees QTcB Int : 432 ms Sinus tachycardia Otherwise normal ECG When compared with ECG of 10-Feb-2025 20:02, No significant change was found Referred By: Patsy Barrow Electronically Signed By: LISA HAGAN MD
[2025-02-19 18:39] LABS: UACC Culture Trigger YES
--- NOTE | 2025-02-19 18:39 | ED.AMS ---
HPI - Altered Mental Status General Chief Complaint: Altered Mental Status Stated Complaint: ?sepsis from grp home, lethargic Time Seen by Provider: 02/19/25 17:49 Source: patient, EMS and old records reviewed Mode of arrival: EMS Limitations: no limitations History of Present Illness ED Provider: DR. Barrow HPI narrative: this is a 44-year-old male history of progressive MS and severe cognitive and physical impairment currently bed ridden living in the [facility], constipation, GI bleed, GERD, seizure, hepatitis-B and C, history of substance abuse, neurogenic bladder with suprapubic catheter, depression, HLD, GERD, G-tube, UTI with history of ESBL -VRE patient was recently discharged from the hospital on Augmentin and doxycycline for UTI returned because at the [facility] patient is not acting himself, more lethargic, change mental status, having fever, staff also noted that the tip of his bilateral hands finger is turning blue at times, patient is sleeping more than usual. Related Data Home Medications ?Medication ?Instructions ?Recorded ?Confirmed sodium phosphates 19 gram-7 118 ml NC DAILY PRN BM 08/30/23 02/10/25 gram/118 mL enema (Fleet Enema) epinephrine 0.3 mg/0.3 mL 0.3 mg IM Q15M PRN Anaphylaxis 02/27/24 02/10/25 injection, auto-injector gabapentin 100 mg capsule 200 mg feeding tube TID 02/27/24 02/10/25 polyethylene glycol 3350 17 17 g feeding tube BID 02/27/24 02/10/25 gram/dose oral powder cetirizine 10 mg tablet 10 mg PO DAILY 12/07/24 02/10/25 cholecalciferol (vitamin D3) 50 50 mcg PO DAILY 12/07/24 02/10/25 mcg (2,000 unit) tablet levetiracetam 500 mg tablet 500 mg PO BID 12/07/24 02/10/25 melatonin 5 mg disintegrating 5 mg PO BEDTIME 12/07/24 02/10/25 tablet sennosides 8.6 mg tablet (senna) 17.2 mg PO BID 12/07/24 02/10/25 acetaminophen 325 mg tablet 650 mg feeding tube Q8H PRN 02/10/25 02/10/25 HEADACHE/MILD PAIN/FEVER>100 alpha lipoic acid 600 mg capsule 600 mg PO BID 02/10/25 02/10/25 doxycycline monohydrate 100 mg 100 mg feeding tube BID PRN 02/10/25 02/10/25 tablet CATHETER CHANGE Previous Rx's ?Medication ?Instructions ?Recorded bisacodyl 10 mg rectal suppository 10 mg NC DAILY PRN constipation 08/21/23 (Dulcolax (bisacodyl)) #12 ea amitriptyline 100 mg tablet 100 mg feeding tube BEDTIME #30 09/01/23 tabs atorvastatin 10 mg tablet 10 mg feeding tube BEDTIME #30 tabs 09/01/23 baclofen 10 mg tablet 40 mg (4 x 10 mg) feeding tube TID 09/01/23 #30 tabs famotidine 20 mg tablet 20 mg feeding tube BID #30 tabs 09/01/23 magnesium hydroxide 400 mg/5 mL 30 ml feeding tube DAILY PRN 09/01/23 oral suspension (Milk of Magnesia) Constipation #355 mL metoprolol tartrate 25 mg tablet 25 mg G-tube BID #60 tabs 09/01/23 ascorbic acid (vitamin C) 500 mg 500 mg feeding tube BID 90 days 01/04/25 tablet (Vitamin C) #180 tabs methenamine hippurate 1 gram tablet 1 g feeding tube DAILY 90 days #90 01/04/25 tabs amoxicillin 875 mg-potassium 1 tab feeding tube BID 4 days #8 02/16/25 clavulanate 125 mg tablet tabs doxycycline monohydrate 100 mg 100 mg feeding tube BID 4 days #8 02/16/25 tablet tabs Allergies Allergy/AdvReac Type Severity Reaction Status Date / Time bee pollen (BEE STINGS) Allergy Severe Anaphylaxis Verified 02/19/25 17:52 Review of Systems Review of Systems: Yes Unobtainable due to mental status [facility] Past Medical History Medical History Constipation History of substance abuse Former smoker GERD (gastroesophageal reflux disease) HTN (hypertension) GI bleed Hepatitis B Anemia Afib Failure to thrive in adult Seizures Neuromyopathy UTI (urinary tract infection) Suprapubic catheter Hepatitis C Multiple sclerosis Surgical History Hx of cystoscopy Social History Social History Household Members: None Household Members Other:: Residential Housing: Long-Term Housing Other:: Residential Do you presently have visiting nurse or other home services: No Alcohol intake: never Comment: pt is non ambulatory Patient Tobacco Use Status: Former Tobacco user Tobacco use type: Cigarette Smoked in Last 30 Days: No e-Cigarette/Vaping Use: Never Used Second Hand Smoke Exposure: No Use of substances other than those prescribed or required for medical reasons: No Advance Directives: Yes Advance Directives on File: Yes Advance Directives Date on File: 09/02/23 Do you have a plan to hurt others: No Plan service: No Current occupational status: disabled Physical Exam ED Vital Signs: Vital Signs - 24 hr 02/19/25 17:35 02/19/25 17:39 02/19/25 19:04 Temperature 99.7 F 99.9 F Pulse Rate 120 H 124 H 110 H Respiratory Rate 14 16 Blood Pressure 169/90 H 137/88 146/101 H Pulse Oximetry 98 100 97 Oxygen Delivery Method Room Air Room Air Room Air Fraction of Inspired Oxygen 02/19/25 22:02 02/19/25 23:27 02/20/25 00:20 Temperature 100.0 F 99.0 F Pulse Rate 146 H 132 H 121 H Respiratory Rate 17 19 20 Blood Pressure 141/90 H 141/74 H 112/81 Pulse Oximetry 97 Oxygen Delivery Method Room Air Fraction of Inspired Oxygen 02/20/25 00:30 02/20/25 00:59 02/20/25 01:26 Temperature 99 F Pulse Rate 140 H 120 H Respiratory Rate 15 15 Blood Pressure 122/86 122/86 Pulse Oximetry 100 Oxygen Delivery Method Mechanical Ventilation Mechanical Ventilation Fraction of Inspired Oxygen 100 100 BMI result Body Mass Index 22.8 Vital signs have been reviewed and appear to be correct. Blood pressure elevated. Heart rate normal. Respiratory rate normal. Temperature normal. Oxygen saturation normal. Appearance: Lethargic, do not regards examiner, No acute distress. Head: Normal external exam. Normocephalic. Atraumatic. No Roy signs noted. No raccoon eyes noted Eyes: PERRLA. EOMI. Conjunctiva and sclera normal. Eyelids normal. ENT: TM's Normal. Pharynx normal. Uvula midline. Moist mucous membranes. No trismus noted. No drooling noted. No muffled voice noted. Neck: Normal inspection. Neck supple. FROM. No adenopathy. Thyroid Normal. No meningeal signs. No neck mass noted. CVS: Normal heart rate and rhythm. Heart sound normal. No murmurs noted. Pulses normal throughout. Respiratory: No respiratory distress. Painless inspiration. Breath sounds normal. No wheezes/rales/rhonchi noted. Chest nontender. No accessory muscle usage noted or decreased air movement noted. Abdomen: Soft and nontender. Bowel sounds normal in all 4 quadrants. No distention noted. No organomegaly noted. No visible injury noted. Back: No CVA tenderness. Full range of motion noted. Skin: Skin warm and dry. Normal skin color. Normal skin turgor. No rashes/lesions/lacerations noted. Extremities: No lower extremity edema. Extremities exhibit normal range of motion. Extremities nontender. Neuro: disoriented, limited neuro exam secondary to mental status. Course Reevaluation(s) Reevaluation #1: 44-year-old male bed bound nonverbal return for persistent of UTI with sepsis and change mental status. Continue with IV ceftriaxone, IV fluids. Time: 21:17 Reevaluation #2: patient had CT of the head before going upstairs for medical admission which raise concern of subdural chronic hematoma with left to right midline shift. With change of mental status, and questionable protection of airway will intubate the patient and consider central line placement. case discussed with [facility] transfer [place] and patient was declined. The case was discussed with mother over the phone who will be coming to the hospital soon. Case was accepted by [facility] ED to ED accepting physician is . Time: 23:40 Medications Administered Discontinued Medications Generic Name Dose Route Start Last Admin Trade Name Freq PRN Reason Stop Dose Admin Acetaminophen 650 mg 02/19/25 22:08 02/19/25 22:23 Acetaminophen Supp 650 Mg Supp.Rect NC 02/19/25 22:09 650 mg ONCE ONE Administration Enoxaparin Sodium 40 mg 02/19/25 21:00 02/19/25 21:40 Enoxaparin Sodium 40 Mg/0.4 Ml Syringe SUBCUT 40 mg Q24H LARA Administration Ceftriaxone Sodium 1 gm/ 50 mls @ 100 mls/hr 02/19/25 18:39 02/19/25 19:27 Sodium Chloride IV 02/19/25 19:08 Infused ONCE ONE Infusion Lactated Ringer's 1,000 mls @ 125 mls/hr 02/19/25 21:15 02/20/25 00:22 Lr IVCONT Infused .Q8H LARA Infusion Vancomycin HCl 1,500 mg/ 500 mls @ 333.333 mls/hr 02/19/25 21:43 02/19/25 23:09 Sodium Chloride IV 02/19/25 23:12 Not Given ONCE ONE Vancomycin HCl 2,000 mg in 500 mls @ 250 mls/hr 02/19/25 21:48 02/20/25 00:23 Vancomycin/Ns IV 02/19/25 23:47 Infused ONCE ONE Infusion Lactated Ringer's 1,000 mls @ 999 mls/hr 02/19/25 22:15 02/20/25 00:23 Lr IV 02/19/25 23:15 Infused .Q1H1M LARA Infusion Metronidazole 500 mg in 100 mls @ 100 mls/hr 02/19/25 23:00 02/20/25 00:22 Flagyl IV Not Given Q8H LARA Ketorolac Tromethamine 15 mg 02/19/25 22:11 02/19/25 22:22 Ketorolac Tromethamine 15 Mg/Ml Vial IVPUSH 02/19/25 22:12 15 mg ONCE ONE Administration Sodium Chloride 3 ml 02/20/25 00:00 02/20/25 00:22 0.9 % Sodium Chloride Flush 3 Ml Syringe IVFLUSH Not Given [facility] Succinylcholine Chloride 100 mg 02/20/25 01:18 02/19/25 23:47 Succinylcholine Chloride 200 Mg/10 Ml Vial IVPUSH 02/20/25 01:19 100 mg ONCE ONE Administration Medical Decision Making Differential Diagnosis Differential Diagnoses: The differential diagnosis associated with the presentation includes ( UTI, pneumonia, sepsis, sacral decubitus, dehydration, electrolyte derangement, electrolyte derangement , persistent UTI.) Admission/Observation Consideration of admission/observation: Escalation of care including admission/observation considered Consult Healthcare Provider Management of the patient was discussed with: Hospitalist ( Dr. Chavez) Lab Data MDM Lab Attestation statement: I reviewed the patient's lab results. 02/19/25 18:40 02/19/25 18:40 Labs: Lab Results 02/19/25 02/19/25 02/19/25 Range/Units 18:01 18:09 18:40 WBC 11.6 H (4.8-10.8) X10*3/uL RBC 4.38 L (4.60-5.80) X10*6/uL Hgb 13.3 L (14.0-18.0) g/dl Hct 41.7 L (42.0-52.0) % MCV 95.2 (80.0-98.0) fL MCH 30.4 (27.0-33.0) pg MCHC 31.9 (31.0-36.0) g/dl RDW 11.9 (11.0-16.0) % Plt Count 371 D (160-400) X10*3/uL MPV 9.2 L (9.4-12.4) fL Immature Gran % (Auto) 0.3 (0.0-0.4) % Neut % (Auto) 77.3 H (45-73) % Lymph % (Auto) 12.0 L (20-40) % [place] % (Auto) 7.4 (2-11) % Eos % (Auto) 2.7 (0-4) % Baso % (Auto) 0.3 (0-2) % Lymph # (Auto) 1.4 (1.2-4.9) X10*3/uL [place] # (Auto) 0.9 (0.1-1.2) X10*3/uL Eos # (Auto) 0.3 (0.0-0.4) X10*3/uL Baso # (Auto) 0.0 (0.0-0.2) X10*3/uL Abs Immat Gran (auto) 0.04 H (0.00-0.03) X10*3/uL Absolute Neuts (auto) 8.9 H (2.0-8.3) x10*3/uL Absolute Nucleated RBC 0.000 (0.0-0.012) X10*3/uL Nucleated RBC % (auto) 0.0 (0.0-0.2) /100WBC PT 14.0 H (11.2-13.5) SEC INR 1.1 (0.9-1.1) VBG pH (7.32-7.43) VBG pCO2 mmHg VBG pO2 mmHg VBG HCO3 (22-26) mmol/L VBG O2 Saturation % VBG Base Excess mmol/L Sodium 145 (135-145) mmol/L Potassium 4.2 (3.3-5.1) mmol/L Chloride 108 (96-108) mmol/L Carbon Dioxide 24 (22-29) mmol/L Anion Gap 17 (12-20) BUN 23 H (9-16) mg/dL Creatinine 0.92 (0.5-1.4) mg/dL Estim Creat Clear Calc 108.1 Estimated GFR > 60 Random Glucose 100 (60-115) mg/dL Haptoglobin 82 (14-258) mg/dL Lactic Acid 1.4 (0.5-2.0) mmol/L Calcium 9.6 (8.4-10.2) mg/dL Magnesium 2.2 (1.6-2.6) mg/dL Total Bilirubin 0.4 (0.0-1.0) mg/dL Direct Bilirubin 0.2 (0.0-0.5) mg/dL AST 34 (5-37) U/L ALT 24 (0-40) U/L Alkaline Phosphatase 101 (39-117) U/L Ammonia (13-55) umol/L Lactate Dehydrogenase 325 H (118-273) U/L Total Creatine Kinase 60 (38-174) U/L Troponin I High Sens < 2.7 (<3.5-35.0) ng/L Total Protein 8.2 H (6.5-8.0) g/dL Albumin 3.8 (3.5-5.0) g/dL Urine Color Yellow Urine Appearance Clear Urine pH 5.5 (5.0-9.0) Ur Specific [place] 1.010 (1.005-1.025) Urine Protein Trace (Neg-Trace) mg/dL Urine Glucose (UA) Negative (Negative) mg/dL Urine Ketones Negative (Negative) mg/dL Urine Blood Trace H (Negative) Urine Nitrite Negative (Negative) Ur Leukocyte Esterase Moderate (2+) H (Negative) Urine RBC 3-5 H (0-2) /HPF Urine WBC 11-20 H (0-5) /HPF Ur Squamous Epith Cells 0-2 (0-2) /HPF Urine Bacteria None Seen (None Seen) Hyaline Casts 0-2 (0-2) /LPF Urine Yeast Present Influenza Type A (PCR) NEGATIVE (Negative) Influenza Type B (PCR) NEGATIVE (Negative) RSV RNA Qual (PCR) NEGATIVE (Negative) SARS-CoV-2 RNA (RT-PCR) NEGATIVE (Negative) 02/19/25 02/19/25 Range/Units 18:44 18:51 WBC (4.8-10.8) X10*3/uL RBC (4.60-5.80) X10*6/uL Hgb (14.0-18.0) g/dl Hct (42.0-52.0) % MCV (80.0-98.0) fL MCH (27.0-33.0) pg MCHC (31.0-36.0) g/dl RDW (11.0-16.0) % Plt Count (160-400) X10*3/uL MPV (9.4-12.4) fL Immature Gran % (Auto) (0.0-0.4) % Neut % (Auto) (45-73) % Lymph % (Auto) (20-40) % [place] % (Auto) (2-11) % Eos % (Auto) (0-4) % Baso % (Auto) (0-2) % Lymph # (Auto) (1.2-4.9) X10*3/uL [place] # (Auto) (0.1-1.2) X10*3/uL Eos # (Auto) (0.0-0.4) X10*3/uL Baso # (Auto) (0.0-0.2) X10*3/uL Abs Immat Gran (auto) (0.00-0.03) X10*3/uL Absolute Neuts (auto) (2.0-8.3) x10*3/uL Absolute Nucleated RBC (0.0-0.012) X10*3/uL Nucleated RBC % (auto) (0.0-0.2) /100WBC PT (11.2-13.5) SEC INR (0.9-1.1) VBG pH 7.43 (7.32-7.43) VBG pCO2 44 mmHg VBG pO2 66 mmHg VBG HCO3 29 H (22-26) mmol/L VBG O2 Saturation 89.0 % VBG Base Excess 4.4 mmol/L Sodium (135-145) mmol/L Potassium (3.3-5.1) mmol/L Chloride (96-108) mmol/L Carbon Dioxide (22-29) mmol/L Anion Gap (12-20) BUN (9-16) mg/dL Creatinine (0.5-1.4) mg/dL Estim Creat Clear Calc Estimated GFR Random Glucose (60-115) mg/dL Haptoglobin (14-258) mg/dL Lactic Acid (0.5-2.0) mmol/L Calcium (8.4-10.2) mg/dL Magnesium (1.6-2.6) mg/dL Total Bilirubin (0.0-1.0) mg/dL Direct Bilirubin (0.0-0.5) mg/dL AST (5-37) U/L ALT (0-40) U/L Alkaline Phosphatase (39-117) U/L Ammonia 30 (13-55) umol/L Lactate Dehydrogenase (118-273) U/L Total Creatine Kinase (38-174) U/L Troponin I High Sens (<3.5-35.0) ng/L Total Protein (6.5-8.0) g/dL Albumin (3.5-5.0) g/dL Urine Color Urine Appearance Urine pH (5.0-9.0) Ur Specific [place] (1.005-1.025) Urine Protein (Neg-Trace) mg/dL Urine Glucose (UA) (Negative) mg/dL Urine Ketones (Negative) mg/dL Urine Blood (Negative) Urine Nitrite (Negative) Ur Leukocyte Esterase (Negative) Urine RBC (0-2) /HPF Urine WBC (0-5) /HPF Ur Squamous Epith Cells (0-2) /HPF Urine Bacteria (None Seen) Hyaline Casts (0-2) /LPF Urine Yeast Influenza Type A (PCR) (Negative) Influenza Type B (PCR) (Negative) RSV RNA Qual (PCR) (Negative) SARS-CoV-2 RNA (RT-PCR) (Negative) Independent Interpretation I performed an independent interpretation of an: Plain X-Ray ( chest: No acute intra thoracic pathology.) Radiology Impression Discussion of test interpretation with radiology: I have reviewed the radiologist's reading. Procedures Central Line Placement Right IJ: Time Out Performed: Yes Patient Placed on Monitor/Pulse Ox: Yes MD Prep: mask, gown and gloves Central Line Prep: Povidone-Iodine 1% and Chlorhexidine scrub Ultrasound Used for Placement: Yes Central Line Lumen Inserted: triple Post Procedure: sutured in place Post Procedure X-Ray: tip of catheter in good position Patient Tolerated Procedure: well Complications: none Intubation Intubation Type:: Emergency Endotracheal Intubation Intubation Date:: 02/20/25 Intubation Time:: 00:32 Time out performed: Yes sedative: Etomidate Mg Given: 20 paralytic: Succinylcholine Mg Given: 100 Laryngoscope: Romero ET Tube Size: 7.5 ET Tube Uncuffed: No Tube Secured Depth (cm): 21 Tube Secured Location: lips Tube Placement Confirmation: visualized tube passing through cords, equal breath sounds bilaterally, no breath sounds over epigastrium and confirmation by capnometry Patient Tolerated Procedure: well Critical Care Time Critical Care Time Critical Care Time: Yes Total Critical Care Time: 60 Attestation: The patient was critically ill with a high probability of imminent or life-threatening deterioration. I spent greater than 30 minutes of discontinuous time evaluating the patient, delivering critical care at the bedside, discussing evaluating data with consultants. Critical care time does not include time spent performing separately billable procedures or teaching. Time spent performing critical care was 60 minutes. Discharge Plan Discharge Clinical Impression: Acute alteration in mental status, Acute UTI, Intracranial bleed Patient Disposition: [facility] Transfer Details: [place] emergency department Prescriptions: No Action bisacodyl [Dulcolax (bisacodyl)] 10 mg suppository 10 mg NC DAILY PRN (Reason: constipation) Qty: 12 0RF Rx Instructions: If no BM in 3 days. gabapentin 100 mg capsule 200 mg feeding tube TID epinephrine 0.3 mg/0.3 mL Auto-Injector 0.3 mg IM Q15M PRN (Reason: Anaphylaxis) Rx Instructions: for 2 doses polyethylene glycol 3350 17 gram/dose powder 17 g feeding tube BID [place] Enema 19-7 gram/118 mL Enema 118 ml NC DAILY PRN (Reason: BM) Rx Instructions: If no BM in 4 days atorvastatin 10 mg tablet 10 mg feeding tube BEDTIME Qty: 30 0RF famotidine 20 mg Tablet 20 mg feeding tube BID Qty: 30 0RF magnesium hydroxide [Milk of Magnesia] 400 mg/5 mL Suspension 30 ml feeding tube DAILY PRN (Reason: Constipation) Qty: 355 0RF baclofen 10 mg tablet 40 mg feeding tube TID Qty: 30 0RF amitriptyline 100 mg Tablet 100 mg feeding tube BEDTIME Qty: 30 0RF metoprolol tartrate 25 mg Tablet 25 mg G-tube BID Qty: 60 0RF Protocol: Hold for SBP/HR < HOLD for SBP < : 90 HOLD for HR < : 60 acetaminophen 325 mg tablet 650 mg feeding tube Q8H PRN (Reason: HEADACHE/MILD PAIN/FEVER>100) alpha lipoic acid 600 mg Capsule 600 mg PO BID Rx Instructions: G-TUBE doxycycline monohydrate 100 mg tablet 100 mg feeding tube BID PRN (Reason: CATHETER CHANGE) Rx Instructions: 200 mg PO On day of catheter change; 1 tab before cath change and 1 tab after cath change; amoxicillin-pot clavulanate 875-125 mg tablet 1 tab feeding tube BID 4 Days Qty: 8 0RF doxycycline monohydrate 100 mg tablet 100 mg feeding tube BID 4 Days Qty: 8 0RF sennosides [senna] 8.6 mg tablet 17.2 mg PO BID cetirizine 10 mg tablet 10 mg PO DAILY levetiracetam 500 mg tablet 500 mg PO BID Rx Instructions: G-TUBE cholecalciferol (vitamin D3) 50 mcg (2,000 unit) tablet 50 mcg PO DAILY melatonin 5 mg tablet,disintegrating 5 mg PO BEDTIME methenamine hippurate 1 gram tablet 1 g feeding tube DAILY 90 Days Qty: 90 1RF ascorbic acid (vitamin C) [Vitamin C] 500 mg tablet 500 mg feeding tube BID 90 Days Qty: 180 1RF Interventions: Acute Care Transfer Worksheet (ED) Last Done: 02/20/25 01:26 Discharge Date/Time: 02/20/25 01:27 Print Language: Bulgarian
[2025-02-19 18:50] LABS: Resp Syncy Virus RNA Qual PCR NEGATIVE (Negative); SARS COV2 PCR INHOUSE NEGATIVE (Negative)
[2025-02-19 18:51] LABS: MANUAL DIFF FLAG NO
[2025-02-19 18:52] LABS: Hematocrit 41.7 % (42.0-52.0); Hemoglobin 13.3 g/dl (14.0-18.0); Imm Gran Abs Auto 0.04 X10*3/uL (0.00-0.03); Imm Gran Pct Auto 0.3 % (0.0-0.4); Lymphocytes Absolute Auto 1.4 X10*3/uL (1.2-4.9); Mean Corpuscular HGB Conc 31.9 g/dl (31.0-36.0); Mean Corpuscular Hemoglobin 30.4 pg (27.0-33.0); Mean Corpuscular Volume 95.2 fL (80.0-98.0); NRBC Abs Auto 0.000 X10*3/uL (0.0-0.012); NRBC Pct Auto 0.0 /100WBC (0.0-0.2); Platelet Count 371 X10*3/uL (160-400); Red Blood Count 4.38 X10*6/uL (4.60-5.80); White Blood Count 11.6 X10*3/uL (4.8-10.8)
[2025-02-19 18:53] LABS: Venous Blood Gas Refer to POC result
[2025-02-19 18:55] LABS: VBG HCO3 29 mmol/L (22-26); VBG O2 % Saturation 89.0 %
[2025-02-19 18:57] LABS: INTERNATIONAL NORM RATIO 1.1 (0.9-1.1); Prothrombin Time 14.0 SEC (11.2-13.5)
[2025-02-19 18:59] LABS: Ammonia 30 umol/L (13-55)
--- NOTE | 2025-02-19 19:02 | PC.NURSE ---
Dr. Barrow able to successfully insert a 20 EJ, abx now running.
[2025-02-19 19:04] VITALS: BP 146/101; PULSE 110; RESP 16; TEMP 37.7; O2SAT 97
[2025-02-19 19:09] LABS: Anion Gap 17 (12-20); Blood Urea Nitrogen 23 mg/dL (9-16); Calcium 9.6 mg/dL (8.4-10.2); Carbon Dioxide 24 mmol/L (22-29); Chloride 108 mmol/L (96-108); Creatinine Clr Calc Pharmacy 108.1; Estimated Glomerular Filt Rate > 60; Magnesium 2.2 mg/dL (1.6-2.6); Potassium 4.2 mmol/L (3.3-5.1); Sodium 145 mmol/L (135-145)
[2025-02-19 19:14] LABS: Troponin-I High Sensitivity < 2.7 ng/L (<3.5-35.0)
--- NOTE | 2025-02-19 21:17 | PM.IMHP ---
History of Present Illness Date of Service: 02/19/25 Attending physician on admission: Nikolay Chavez Chief Complaint: AMS, fever Patient is a 44-year-old male with history of progressive MS and severe cognitive and physical impairment currently bed-bound living in longterm, constipation, GI bleed, GERD, seizures, hepatitis-B and C, history of substance abuse, neurogenic bladder with suprapubic catheter in place, depression, HLD, GERD, G-tube, UTI with history of ESBL - VRE - Serratia - Morganella - P Mignon is normally bed-bound and nonverbal, Was recently discharged from hospital 02/16/2025 secondary to UTI and re-presented via ambulance from the longterm for significant altered mental status with noted lethargy. Staff reported that at times his hands and fingers were turning blue. Patient was not interested in taking any oral intake by syringe. Per caregiver at the bedside, patient had 1 episode of significant diarrhea over the weekend. Patient was discharged on Augmentin and doxycycline. Patient has been seen by infectious disease and it was felt that a positive blood culture for coagulase-negative staph was most likely a contaminant. In addition patient had an echocardiogram which was negative for any vegetation. Patient's IV vanco and Zosyn was stopped and patient was transitioned to p.o. doxy and Augmentin for 10 days. Patient has suprapubic catheter had been last change in the ED with previous admission. Patient also had issues with constipation but eventually did move his bowels during this last admission and now is having this large episode of diarrhea prior to returning to the ED. Staff denied any issues with nausea or vomiting. There has been no obvious signs of aspiration. Patient currently lethargic, arousable, tachycardic, febrile appearing septic in presentation. Workup in the ED included chest x-ray negative for any acute findings. labs noting a leukocytosis of 11.6 with neutrophilia, no bandemia. H and H stable at 13.3 and 41.7. VBG 7.43, 44, 66, 29. electrolytes stable, renal function within normal limits, glucose 100, lactate 1.4, magnesium 2.2, ammonia 30. urinalysis notes trace of heme, moderate leukocyte esterase, 11-20 WBCs, +4 bacteria. viral studies for COVID, RSV and flu are all negative. CT of the abdomen pelvis and chest pending. Patient only has an EJ line so unable to do contrast at this time. Patient currently has poor IV access. Patient administered additional fluids beyond the sepsis protocol as he remains tachycardic with rectal temp rising. Patient receiving rectal Tylenol, Toradol, ice packs and antibiotics have been changed to vancomycin, cefepime and Flagyl. Stool panel pending. This financial writer did update patient's mother and clap her by phone regarding patient's condition. Reyna stated that she is not able to come into the hospital because she is dealing with an illness of her own. Reyna verbalized understanding of patient's condition and agreed with update by phone as needed. Review of Systems Review of Systems: Yes Unobtainable due to mental condition [facility] Medical History Constipation History of substance abuse Former smoker GERD (gastroesophageal reflux disease) HTN (hypertension) GI bleed Hepatitis B Anemia Afib Failure to thrive in adult Seizures Neuromyopathy UTI (urinary tract infection) Suprapubic catheter Hepatitis C Multiple sclerosis Cognitive capacity: lethargic, not responding to verbal stimuli Functional capacity: bed bound Surgical History Hx of cystoscopy Social History Household Members: None Household Members Other:: [facility] Housing: [facility] Housing Other:: [facility] Do you presently have visiting nurse or other home services: No Alcohol intake: never Comment: pt is non ambulatory Patient Tobacco Use Status: Former Tobacco user Tobacco use type: Cigarette Smoked in Last 30 Days: No e-Cigarette/Vaping Use: Never Used Second Hand Smoke Exposure: No Use of substances other than those prescribed or required for medical reasons: No Advance Directives: Yes Advance Directives on File: Yes Advance Directives Date on File: 09/02/23 Do you have a plan to hurt others: No Plan service: No Current occupational status: disabled Meds Allergies Allergy/AdvReac Type Severity Reaction Status Date / Time bee pollen (BEE STINGS) Allergy Severe Anaphylaxis Verified 02/19/25 17:52 Home Medications ?Medication ?Instructions ?Recorded ?Confirmed ?Last Taken ?Type sodium phosphates 19 gram-7 118 ml MS DAILY PRN BM 08/30/23 02/10/25 Unknown History gram/118 mL enema (Fleet Enema) epinephrine 0.3 mg/0.3 mL 0.3 mg IM Q15M PRN Anaphylaxis 02/27/24 02/10/25 Unknown History injection, auto-injector gabapentin 100 mg capsule 200 mg feeding tube TID 02/27/24 02/10/25 Unknown History polyethylene glycol 3350 17 17 g feeding tube BID 02/27/24 02/10/25 Unknown History gram/dose oral powder cetirizine 10 mg tablet 10 mg PO DAILY 12/07/24 02/10/25 Unknown History cholecalciferol (vitamin D3) 50 50 mcg PO DAILY 12/07/24 02/10/25 Unknown History mcg (2,000 unit) tablet levetiracetam 500 mg tablet 500 mg PO BID 12/07/24 02/10/25 Unknown History melatonin 5 mg disintegrating 5 mg PO BEDTIME 12/07/24 02/10/25 Unknown History tablet sennosides 8.6 mg tablet (senna) 17.2 mg PO BID 12/07/24 02/10/25 Unknown History acetaminophen 325 mg tablet 650 mg feeding tube Q8H PRN 02/10/25 02/10/25 Unknown History HEADACHE/MILD PAIN/FEVER>100 alpha lipoic acid 600 mg capsule 600 mg PO BID 02/10/25 02/10/25 Unknown History doxycycline monohydrate 100 mg 100 mg feeding tube BID PRN 02/10/25 02/10/25 Unknown History tablet CATHETER CHANGE Physical Exam Vital Signs and Narrative: Vital Signs: Last Vital Signs Temp 99.9 F 02/19/25 19:04 Pulse 110 H 02/19/25 19:04 Resp 16 02/19/25 19:04 BP 146/101 H 02/19/25 19:04 Pulse Ox 97 02/19/25 19:04 O2 Del Method Room Air 02/19/25 19:04 BMI result Body Mass Index 22.8 Pt lethargic, not responding to verbal stimuli, in deep sleep Neuro: unable to complete neuro exam EYES: PERRLA, sclera nonicteric, conjunctiva pink ENT: no thrush noted, , uvula midline, lips moist, nares patent no epistaxis Cardiac: S1 S2 RRR, tachycardic, no murmur, no JVD, no edema in Lower ext Pulmonary: lungs Diminished bilaterally, no adventitious sounds Abdominal: BS active in all 4 quadrants, no guarding, tenderness, rebounding, abdomen soft MSK: unable to assess strength : suprapu,bic catheter patent insertion site clean of any exudate Extremities: no edema in lower extremities, PT and DP pulses palpable +2 Psych: lethargic unable to assess Skin: no new opened wounds, hands red, warm Results Labs 02/19/25 18:40 02/19/25 18:40 Labs: Laboratory Results - last 24 hr 02/19/25 02/19/25 02/19/25 18:01 18:09 18:40 MCV 95.2 MCH 30.4 MCHC 31.9 RDW 11.9 Plt Count 371 D MPV 9.2 L Immature Gran % (Auto) 0.3 Neut % (Auto) 77.3 H Lymph % (Auto) 12.0 L [place] % (Auto) 7.4 Eos % (Auto) 2.7 Baso % (Auto) 0.3 Lymph # (Auto) 1.4 [place] # (Auto) 0.9 Eos # (Auto) 0.3 Baso # (Auto) 0.0 Abs Immat Gran (auto) 0.04 H Absolute Neuts (auto) 8.9 H Absolute Nucleated RBC 0.000 Nucleated RBC % (auto) 0.0 PT 14.0 H INR 1.1 VBG pH VBG pCO2 VBG pO2 VBG HCO3 VBG O2 Saturation VBG Base Excess Anion Gap 17 Estim Creat Clear Calc 108.1 Estimated GFR > 60 Random Glucose 100 Lactic Acid 1.4 Calcium 9.6 Magnesium 2.2 Ammonia Troponin I High Sens < 2.7 Urine Color Yellow Urine Appearance Clear Urine pH 5.5 Ur Specific [place] 1.010 Urine Protein Trace Urine Glucose (UA) Negative Urine Ketones Negative Urine Blood Trace H Urine Nitrite Negative Ur Leukocyte Esterase Moderate (2+) H Urine RBC 3-5 H Urine WBC 11-20 H Ur Squamous Epith Cells 0-2 Urine Bacteria None Seen Hyaline Casts 0-2 Urine Yeast Present Influenza Type A (PCR) NEGATIVE Influenza Type B (PCR) NEGATIVE RSV RNA Qual (PCR) NEGATIVE SARS-CoV-2 RNA (RT-PCR) NEGATIVE 02/19/25 02/19/25 18:44 18:51 MCV MCH MCHC RDW Plt Count MPV Immature Gran % (Auto) Neut % (Auto) Lymph % (Auto) [place] % (Auto) Eos % (Auto) Baso % (Auto) Lymph # (Auto) [place] # (Auto) Eos # (Auto) Baso # (Auto) Abs Immat Gran (auto) Absolute Neuts (auto) Absolute Nucleated RBC Nucleated RBC % (auto) PT INR VBG pH 7.43 VBG pCO2 44 VBG pO2 66 VBG HCO3 29 H VBG O2 Saturation 89.0 VBG Base Excess 4.4 Anion Gap Estim Creat Clear Calc Estimated GFR Random Glucose Lactic Acid Calcium Magnesium Ammonia 30 Troponin I High Sens Urine Color Urine Appearance Urine pH Ur Specific [place] Urine Protein Urine Glucose (UA) Urine Ketones Urine Blood Urine Nitrite Ur Leukocyte Esterase Urine RBC Urine WBC Ur Squamous Epith Cells Urine Bacteria Hyaline Casts Urine Yeast Influenza Type A (PCR) Influenza Type B (PCR) RSV RNA Qual (PCR) SARS-CoV-2 RNA (RT-PCR) ECG Attestation: I personally reviewed and interpreted this ECG as follows: ( sinus tachycardia with no ischemic changes QTC 432) Prior ECG tracings: available for review Imaging Radiologist's Impressions: chest x-ray no acute finding CT of the chest abdomen and pelvis pending CT of the head pending Assessment and Plan (1) Sepsis: Qualifiers: Sepsis acute organ dysfunction status: unspecified Sepsis type: sepsis due to unspecified organism Qualified Code(s): A41.9 - Sepsis, unspecified organism Status: Acute (2) Acute UTI: Status: Acute Plan Patient is a 44-year-old male with history of progressive MS and severe cognitive and physical impairment currently bed-bound living in longterm, constipation, GI bleed, GERD, seizures, hepatitis-B and C, history of substance abuse, neurogenic bladder with suprapubic catheter in place, depression, HLD, GERD, G-tube, UTI with history of ESBL - VRE - Serratia - Morganella - P Mignon is normally bed-bound and nonverbal, Was recently discharged from hospital 02/16/2025 secondary to UTI and re-presented via ambulance from the longterm for significant altered mental status with noted lethargy. Staff reported that at times his hands and fingers were turning blue. Patient was not interested in taking any oral intake by syringe. Per caregiver at the bedside, patient had 1 episode of significant diarrhea over the weekend. Patient was discharged on Augmentin and doxycycline. patient being admitted for sepsis likely secondary to UTI. CT of the chest abdomen and pelvis and CT of the head pending. IV ACCESS UNOBTAINABLE IN THE ED,, EJ line placed by ED provider, order placed for MIDLINE AM, may need picc line or central line (IR?) Sepsis/ UTI, consider additional source including coliits noting episode of diarrhea at longterm on augmentin UA positive, stool panel requested, respiratory panel requested Will ask ED provider to change SP catheter if possible Urology consulted ID consulted CT chest, abd and pelvis: ABX now Vancomycin, Cefepime and Flagyl VBG PH 7.43, 44, 66, 29, pt having bouts of apnea, ABG pending LA 1.4, procalcitonin pending IVF resuscitation via sepsis protocol with additional liter and hourly rate Rectal tylenol, ice packs for fever, one dose of Toradol Follow Blood cultures, urine culture Pt has Gtube and does take food and fluids orally, possible aspiration: aspiration precautions ordered, CT pending AMS/ encephalopathy Secondary to sepsis/ fever: per pt's mother, pt was at baseline yesterday after speaking with longterm staff by phone Antipyretics, ice packs Ammonia 30 CT head pending Hypertension Hydralazine PRN Avoid significant drops in blood pressure Tachycardia Secondary to sepsis, fever Improving with IV fluids Progressive MS with severe cognitive and physical impairment/neurogenic bladder Patient is 100% dependent for all ADLs, IADLs Turn and position every 2 hours Constipation/ recent diarrhea Hold bowel regimen CT abd pending (without contrast due to no IV access, EJ only available) DVT prophylaxis med rec full code status patient's mother and clapper is patient's healthcare proxy/ power of technical sales engineer: [phone] Quality Stroke Does the patient have a stroke diagnosis?: No Reason for No Anti-thrombotic by Day Two: N/A - Med Ordered VTE Prior VTE?: No VTE Risk Level:: Medical - moderate - high VTE Device Contraindication: N/A - Device Ordered VTE Drug Contraindication: N/A - Med Ordered
[2025-02-19] MEDS: Lactated Ringers 1,000 ML 125 ML IVCONT (21:37)
[2025-02-19 22:02] VITALS: BP 141/90; PULSE 146; RESP 17; TEMP 37.8; O2SAT 97
[2025-02-19] MEDS: vancomycin/NS 2,000 MG/500 ML PLAST..BAG 250 MG IV (22:18)
[2025-02-19] MEDS: Lactated Ringers 1,000 ML 999 ML IV (22:19)
[2025-02-19] MEDS: Acetaminophen Supp 650 MG SUPP.RECT PR (22:23)
--- NOTE | 2025-02-19 22:34 | PHA.PROG ---
Admission Date/Time: Indication: sepsis Weight in k.204 kg Adjusted body weight in Kg: [place] body weight in Kg: Obesity Dosing Indication % IBW: Serum Creatinine - Last 168 Hours 02/19/25 18:40 Creatinine 0.92 Estimated CrCl and GFR - Last 168 Hours 02/19/25 18:40 Estim Creat Clear Calc 108.1 Estimated GFR > 60 Vancomycin Loading Dose: 2000 Current Vancomycin Dosing Regimen: 1250 mg Q12H Vancomycin Monitoring using AUC goal of 400 - 600 range with trough as surrogate marker: 598 Date and Time for next Vancomycin Level to be drawn: 02/21/25 @0800 Pharmacist Comments on Vancomycin Plan: Vancomycin dosing will take advantage of [employer] as a clinical decision support tool that uses Bayesian modeling to calculate individual patient's pharmacokinetic parameters and forecast the patient's drug concentration time course with the target goal AUC 24 range of 400 - 600 mg/L/hr.
--- NOTE | 2025-02-19 23:12 | PC.NURSE ---
hospitalist at bedside at this time. will consult ICU for possible admit at this time
[2025-02-19 23:24] LABS: Alanine Aminotransferase 24 U/L (0-40); Albumin Level 3.8 g/dL (3.5-5.0); Alkaline Phosphatase 101 U/L (39-117); Aspartate Amino Transferase 34 U/L (5-37); Total Protein 8.2 g/dL (6.5-8.0)
[2025-02-19 23:27] VITALS: BP 141/74; PULSE 132; RESP 19; TEMP 37.2
--- NOTE | 2025-02-19 23:47 | PC.NURSE ---
Discussion was made to intubate patient, resp at bedside, Dr Barrow called for 100 succinylcholine and 20mg etomidate, asked to clarify giving paralytic prior to sedation, again order for succinylcholine to be given first. 2348 75% then up too 100% while bagging 2350 HR 122 O2 100% 2351 intubated with 7.5 ET at 24 Lip, positive color change HR 142 RR 25 100% 129/92 2355 Propofol started at 30mcg/kg 0000 propofol titrated to 40mcg/kg 0008 propofol titrated to 50mcg/kg Dr. Barrow set up for central line immediately following intubation.
[2025-02-20 00:20] VITALS: BP 112/81; PULSE 121; RESP 20
[2025-02-20 00:30] VITALS: BP 122/86; PULSE 140; RESP 15; O2SAT 100
[2025-02-20 00:59] VITALS: BP 87/65; PULSE 98; O2SAT 100
--- NOTE | 2025-02-20 01:04 | PC.NURSE ---
report called to Felipe PAGE at [place] at this time
--- NOTE | 2025-02-20 01:14 | PC.NURSE ---
BENNETT 02/19/2025 @ 0013 fentanyl 25mcg given IVP
--- NOTE | 2025-02-20 01:15 | PC.NURSE ---
BENNETT 0056 wasted 75mcg fentanyl with witness Trish PAGE
[2025-02-20 01:26] VITALS: BP 122/86; PULSE 120; RESP 15; TEMP 37.2
--- OUTSIDE RECORDS SUMMARY | 2025-02-20 02:25 | XMS_ITS | Data Portability ---
Author Organization [place] [facility] Address [address] [place] [address] Care Team Providers Care Equipment Maintenance Supervisor Name Role Phone MARIANO MATA Primary Care [...] 11/06/2020 Opened in error, unable to reach [facility] [email or web address] Not available 11/06/2020 10:35:14 11/07/2020 11/07/2020 Brief [...] after care of this [facility]. Time On Scene with Patient: 00:41:04 amita Not available 11/07/2020 20:14:06 03/26/2021 03/26/2021 Proper Personal Protective Equipment (PPE), including gloves, gown, shoe covers, eye protection and Envo masks were donned and doffed appropriately and all equipment cleaned using approved technique with germicidal disposable wipes prior to and after care of this patient according to [facility] protocols. Overview/History: 40 yo male w/PMHx of MS, neurogenic bladder s/p suprapubic catheter, wheelchair mobility, seizures, dysphagia, substance abuse, smoker, psoriasis. detention staff states the patient has nasal congestion [...] CoV-2 SAULO collected to be sent to [facility] for analysis. Discussed the patient does not have to self-quarantined per [facility] because he is fully vaccinated and boostered against COVID and has no known sick contacts. COVID test results should be completed in 2 to 4 days, you will receive a phone call with positive results, no call for negative results. Patient and detention staff endorse understanding and agrees with this plan. In order to obtain further information and compare any laboratory results/values, I have accessed patient records on the [employer]. This information was pertinent in my medical decision making today. [email or web address] Not available 03/26/2021 17:28:01 Plan of Treatment Reminders Order Date Submit Date Provider Last Modified By Organization Details Last Modified Time Details Appointments None recorded. Lab unlisted lab - covid-19 (novel coronavirus ) PCR 2021 [facility]22 [email or web address] (Centralized Electronic Ordering - All Locations), Patient Can Go To The Location Of Their Choice, [id number] 2 18:27:45 unlisted lab - urinalysis w/reflex culture 2020 021 ningalls [facility] (Centralized Electronic Ordering - All Locations), Patient Can Go To The Location Of Their Choice, [address] 12:02:43 Referral None recorded. Procedures None recorded. Surgeries None recorded. Imaging None recorded. Medication Orders triamcinolo ne acetonide 0.025 % topical ointment 2020 021 [facility], [address] [place] [address], [address], [id number], 19:56:42 Refresh P.M. 57.3 %-42.5 % eye ointment 2020 [facility], [address] [place] [address], [id number], 19:56:44 Artificial Tears (glycerin-p eg) 1 %-0.3 % eye drops 2020 021 [facility], [address] [place] [address], [address], [id number], 19:56:46 Patient TargetsNo targets recorded. Patient Instructions Encounter Date Encounter Id Patient Instructions Last Modified By Organization Details Last Modified Time 09/20/2020 [id number] [facility] came to the detention to evaluate Noe for a problem with [...] suprapubic catheter is not always possible with [facility]. IT is provider dependent. If there are fevers, chills or you feel he is worse, please call 911 and go to the ED> Not available 09/20/2020 15:37:53 11/07/2020 [id number] psoriasis: care instructions [email or web address] Not available 11/07/2020 19:49:34 dry eyes: care instructions [email or web address] 5 Not available 11/07/2020 19:49:29 Please follow up with your primary care provider or specialist at next available appointment to be rechecked or seek medical attention if your symptoms do not go away or get worse. If you have additional concerns or develop a change in your condition between 8am-10pm, please call [facility] at [phone] to help navigate your care. [email or web address] 5 Not available 11/07/2020 19:50:03 03/26/2021 [id number] Inhaler Instructions Before use, you need to [...] after cleaning actually helps it work better. [email or web address] Not available 03/26/2021 17:02:00 Reason for Referral None Reported. Results Created Date Observation Date Name Description Value Unit Range Abnormal Flag Note LastModifiedBy Organization Detail LastModifiedTime 09/21/1909/24/2020 URINE CULTU RE specimen description URINE Not Available [facility] (Centralized Electronic Ordering - All Locations) Patient Can Go To The Location Of Their Choice, [id number] 09/24/2020 14:40:30 09/21/1909/24/2020 URINE CULTU RE special [...] Go To The Location Of Their Choice, [id number] 09/24/2020 14:40:30 09/21/1909/24/2020 URINE CULTU RE piperacillin /tazobactam PIPERA CILLIN /TAZOB AC SUSCEP TIBLE susceptib le Not Available [facility] (Centralized Electronic Ordering - All Locations) Patient Can Go To The Location Of Their Choice, [id number] 09/24/2020 14:40:30 09/21/19 21 09/24/2020 URINE CULTU RE trimeth/sulf amethox TRIMET H/SULF AMETHO X SUSCEP TIBLE susceptib le Not Available [facility] (Centralized Electronic Ordering - All Locations) Patient Can Go To The Location Of Their Choice, [id number] 09/24/2020 14:40:30 09/21/19 21 09/24/2020 URINE CULTU RE tetracycline TETRAC YCLINE RESIST ANT resistant Not Available [facility] (Centralized Electronic Ordering - All Locations) Patient Can Go To The Location Of Their Choice, [id number] 09/24/2020 14:40:30 03/26/19 22 03/29/20212018 NOVEL CORON [...] nt publi c healt h emerg ency, [facility] is accep ting sampl [...] the [facility] websi te: www.Fippex uestD [employer] .[employer]/ Covid 19. = Test Perfo rmed by: [facility], [address] [place]. [address] . Labor atory Direc tor: Sridevi nettles MD. Not Available [facility] (Centralized Electronic Ordering - All Locations) Patient Can Go To The Location Of Their Choice, [id number] 03/29/2021 05:52:14 Result Notes None recorded. Procedures Surgical History Date Name Laterality Status Provider Name and Address Organization Details Recorded Time Mcghee Catheter Insertion - completed CAMACHO BAILEY NP [address] [place], [address], [place] [facility] 09/20/2020 17:24:40 Imaging Results None recorded. Procedure Notes None recorded. Medical Equipment None Reported. Allergies Allergen ID Allergen Name Allergen Category Reaction Reaction Severity Criticality Documentation Date Start Date Code Code System Note Provider Name and Address Organization Details Recorded Time [id number] honey bee venom medicatio n Not available Not available Not available 09/20/2020 33404 7 RxNorm CAMACHO BAILEY, [place] [address] [place] [place], [address], [place] [facility] 15:30:02 Medications Name Sig Start Date Stop [...] /min 98 % 130/80 mm[Hg] Not Available [facility] 2 17:13:03 Date Recorded Heart rate Respiratory rate Body temperature Oxygen saturation Systolic And Diastolic Provider Name and Address Organization Details Last Updated DateTime 1 89 /min 18 /min 98.9 [degF] 93 % 144/82 mm[Hg] Not Available [facility] 1 14:55:02 Date Recorded Body temperature Respiratory [...] Social History Question Answer Notes LastModified by Benkyo Player Details LastModified Time Tobacco Smoking Status Current Some Day Smoker BRET MONZON, [place] [address], [place], [address], [place] [facility] 11/07/2020 19:39:56 What Is Your Code Status? Full Code Information not available 11/07/2020 Fall Risk: Do You Feel Unsteady When Standing Or Walking? Yes [email or web address] Information not available 11/07/2020 Excessive Alcohol Or Drug Use No [email or web address] Information not available 11/07/2020 Does This Patient Have A PCP? Yes [email or web address] Information not available 11/07/2020 How Many Years Have You Smoked Tobacco? 20 [email or web address] Information not available 11/07/2020 Sex: Unknown Functional Status Question Answer Note LastModified by [employer] Player Details LastModified Time Do you use any illicit or recreational drugs? No [email or web address] Information not available 11/07/2020 Do you or have you ever used any other forms of tobacco or nicotine? No Information not available 11/07/2020 What is your level of alcohol consumption? None Information not available 11/07/2020 Mental Status None recorded. Family History Relationship Description Onset Age of this Age Resolved Age Notes LastModified by Organization Details LastModified Time Father No current problems or disability [email or web address] Not available 0 11/07/2020 19:38:39 Mother No current problems or disability [email or web address] Not available 0 11/07/2020 19:38:39 Notes:Pt denies FH Medical History Condition Response Coronary Artery Disease N High Cholesterol N Pulmonary Embolism N Stroke N Hypertension N Asthma N Kidney Disease N Past Encounters Encounter ID Performer Location Encounter Start Date Encounter Closed Date Diagnosis/Indication Diagnosis SNOMED-CT Code Diagnosis ICD10 Code Diagnosis IMO Codes Diagnosis Note [id number] CAMACHO BAILEY, [place] [facility] [address] [place] [address] 09/20/2020 14:54:22 09/23/2020 18:41:47 Mechanical complication of suprapubic catheter 724548435 T83.198A [id number] GABY CARRIE, PRACTICE ARCHITECT [facility] [address] [facility] [place] [address] 11/06/2020 10:21:09 11/06/2020 15:09:11 [id number] BRET MONZON, PRACTICE ARCHITECT [facility] [address] [facility] [place] [address] 11/07/2020 19:06:33 11/08/2020 21:41:04 Psoriasis of face 633014324 L40.9 acute on chronic Adverse re action to drug 00564899 T50.905A Dry eyes 446239941 H04.1 29 [id number] DERECK SALINAS NP [facility] [address] [facility] [place] [address] 03/26/2021 17:01:05 03/31/2021 11:43:30 Exposure to communicable disease 800526115 Z20.9 Health Concerns Section Related Observation LastModified by Organization Detai ls LastModified Time None Recorded Concern Status LastModified by Organization Details LastModified Time None Recorded Advance Directives Directive None Recorded Payers Insurance Date Sequence Insurance Name Policy Number Policy Covered Member ID Member ID Guarantor Name 09/19/2020 1 *SELF PAY* Noe Vieira [id number] Noe Vieira 03/26/2021 2 [place] [facility] Noe Vieira [id number] Noe Vieira 09/23/2020 1 [facility] (MEDICAID HMO) Noe Vieira [id number] Noe Vieira 03/31/2021 1 [place] [facility] Noe Vieira [id number] Noe Vieira Notes Date Note Type Note Provider Name and Address Organization Details Recorded Time 09/20/2020 text/html 39 year-old male with history of progressive MS, wheelchair bound ,suprapubic catheter, substance abuse, chronic methadone use for pain control, whose staff calls DH to the detention to evaluate patient's suprapubic catheter.Pt had a [...] been acting his norm per staff of detention.Pt denies any difficulty in breathing and has no complaints. CAMACHO BAILEY NP [address], [place], [address], [place] [facility] 09/20/2020 17:34:37 11/06/2020 text/html Opened in error, unable to reach [facility] GABY BUTLER NP [address], [place], [address], [place] [facility] 11/06/2020 10:35:31 11/07/2020 text/html [...] dry. BRET MONZON NP [address], [place], [address], [place] [facility] 11/07/2020 20:14:13 03/26/2021 text/html General HPI Template - DHReported by Patient 40 yo male who is known to but new to this provider. Patient's PMHx includes MS, neurogenic bladder s/p suprapubic catheter, wheelchair mobility, seizures, dysphagia, substance abuse, smoker, psoriasis; he resides in a detention setting. detention staff endorse the patient has been experiencing congestion, with increased sniffling for the last two days; he is vacc., and boostered against COVID 19; deny any active COVID residents in building. Patient denies fever, chills, eye/ear pain, changes in vision, chest pain, palpitations, abdominal pain, N/V/D. DERECK SALINAS NP [address] [place] [address], [address], [place] [facility] 03/26/2021 20:11:33
--- OUTSIDE RECORDS SUMMARY | 2025-02-20 02:25 | XMS_ITS | Encounter Summary ---
Author Organization [facility] Address [address] [place] [address] Care Team Providers Care Manager Division Name Role Phone Reji Lu Primary Care Provider [phone] Reason for Visit * Reason Onset Date Comments Fax Referral 07/29/2020 Encounter Details Date Type Department Care Team (Late st Contact Info) Description 07/29/2020 Telephone [facility] Central Scheduling Department [address] [place] [address] Telephone Intake, Staff Fax Referral Social History [...] She states that she has power of trademark attorney. Noe will be coming to the initial visit with someone from his jail, but she is unable to attend the first visit. She will have the jail bring 1. Copy of power of trademark attorney, 2. MRI results report from [facility] 2017. 3. Medication list, 4. Most recent PCP note. (she does not know PCP's name at the moment.) I have sent her the [employer] link, so that she can also send us records thru [employer]. His mother adds that he is a poor historian. * Telephone Encounter - Nickolas Sam - 07/29/2020 1:16 PM EDT [facility] has medical records of pt Pt's mother said the most recent MRI was in September 2016. To obtain this, mother said she was having difficult time. [facility] wants [facility] to fax them a request and they will send records. [facility] fax number: [phone] documented in this encounter Plan of Treatment Upcoming Encounters Date Type Department Care Team (Late st Contact Info) Description 03/23/2025 9:00 AM [facility] [address] [place] [address] Telecommunication Lines Repairer: Laxmi Rosario documented as of this encounter Visit Diagnoses Not on filedocumented in this encounter Care Teams Manager Division Relationship Specialty Start Date End Date Reji Lu [address] [place] [address] PCP - General Internal Medicine 01/19/25 documented as of this encounter
--- OUTSIDE RECORDS SUMMARY | 2025-02-20 02:25 | XMS_ITS | Encounter Summary ---
Author Organization [facility] Address [address] [place] [address] Care Team Providers Care Recreation Specialist Name Role Phone Reji Lu Primary Care Provider [phone] Encounter Details Date Type Department Care Team (Late st Contact Info) Description 07/15/2021 Telephone [facility] Central Scheduling Department [address] [place] [address] Telephone Intake, Staff Social History Tobacco Use [...] Hugo Caregiver reqs prescription be refilled at [facility] [phone] Sending TE to [facility] Mutiple Sclerosis Clinical Staff per DT to please obtain order from provider and send to above named pharmacy documented in this encounter Plan of Treatment Upcoming Encounters Date Type Department Care Team (Late st Contact Info) Description 03/23/2025 9:00 AM [facility] [address] [place] [address] Stone Trimmer: Laxmi Rosario documented as of this encounter Visit Diagnoses Not on filedocumented in this encounter Care Teams Recreation Specialist Relationship Specialty Start Date End Date Reji Lu [address] [place] [address] PCP - General Internal Medicine 01/19/25 documented as of this encounter
--- OUTSIDE RECORDS SUMMARY | 2025-02-20 02:25 | XMS_ITS | Clinical Summary ---
Author Organization [facility] Address [address] [place] [address] Care Team Providers Care Rugby League Footballer Name Role Phone SteffenkaiReji Primary Care Provider [phone] Allergies Active Allergy Reactions Criticality Noted Date [...] Type Department Care Team Description 12/04/2024 [facility] [address] [place] [address] Public Relations Writer: Laxmi Rosario Lisa Bedoya Multiple sclerosis (HCC); Spastic quadriplegia (HCC) 12/01/2024 myChart Message [facility] [address] [place] [address] Molina Mendenhall LPN refill 12/01/2024 Refill [facility] [address] [place] [address] Molina Mendenhall LPN Multiple sclerosis (HCC) 12/01/2024 Telephone [facility] Neurology [address] [address] Deepa Zimmer CCMA PAC RX Refill from [...] st Contact Info) Description 03/23/2025 9:00 AM [facility] Telehealth [facility] [address] [place] [address] Public Relations Writer: Laxmi Rosario Health Maintenance Due Date Last Done Comments [...] 02/25/2023, 01/22/2023, Additional history exists COVID-19 Vaccine ( - 2024- season) 2024 07/10/2024, 01/02/2022, 01/31/2021, Additional history exists DTaP,Tdap,and Td Vaccines (2 - Td or Tdap) 07/19/2031 07/18/2021 Pneumococcal Vaccine: Pediatric (0-5 Years) and At-Risk Patients (6-50 Years) Aged Out 08/19/2022 No longer eligible based on patient's age to complete this topic Insurance [facility] MEDICAID Advance Directives Documents on File Type Date Recorded Patient Sales Representative Education Courses Expl anation Power of Commercial Illustrator 08/21/2020 6:37 PM 2018 Care Teams Rugby League Footballer Relationship Specialty Start Date End Date Reji Lu [address] [place] [address] PCP - General Internal Medicine 01/19/25
--- OUTSIDE RECORDS SUMMARY | 2025-02-20 02:25 | XMS_ITS | Encounter Summary ---
Author Organization [facility] Address [address] [place] [address] Care Team Providers Care Lands Resource Manager Name Role Phone Reji Lu Primary Care Provider [phone] Reason for Visit * Reason Onset Date Comments Reschedule 04/01/2021 Encounter Details Date Type Department Care Team (Late st Contact Info) Description 04/01/2021 Telephone [facility] Central Scheduling Department [address] [place] [address] Telephone Intake, Staff Reschedule Social History Tobacco [...] Augustine - 04/01/2021 3:49 PM EST Amy Reconsignment Clerk rescheduling pt's MS appt for 04/03 with Isaac Hugo MD Per DT, rescheduled appt for 09/[address] Hugo documented in this encounter Plan of Treatment Upcoming Encounters Date Type Department Care Team (Late st Contact Info) Description 03/23/2025 9:00 AM EST Telehealth [facility] [address] [place], [place] [phone] Mobile Unit Assistant: Laxmi Rosario documented as of this encounter Visit Diagnoses Not on filedocumented in this encounter Care Teams Lands Resource Manager Relationship Specialty Start Date End Date Reji Lu [address] [place] [address] PCP - General Internal Medicine 01/19/25 documented as of this encounter
--- OUTSIDE RECORDS SUMMARY | 2025-02-20 02:25 | XMS_ITS | Encounter Summary ---
Author Organization [facility] Address [address] [place] [address] Care Team Providers Care Head Bone Grinder Name Role Phone Reji Lu Primary Care Provider [phone] Reason for Visit * Reason Onset Date Comments RX refill 06/19/2021 Encounter Details Date Type Department Care Team (Late st Contact Info) Description 06/19/2021 Telephone [facility] Central Scheduling Department [address] [place] [address] Telephone Intake, Staff RX refill Social History [...] anything yet pls follow up once complete [phone] documented in this encounter Plan of Treatment Upcoming Encounters Date Type Department Care Team (Late st Contact Info) Description 03/23/2025 9:00 AM [facility] [address] [place] [address] Softball Core Molder: Laxmi Rosario documented as of this encounter Visit Diagnoses Not on filedocumented in this encounter Care Teams Head Bone Grinder Relationship Specialty Start Date End Date TabithaSammyelpidio [address] [place] [address] PCP - General Internal Medicine 01/19/25 documented as of this encounter
== END 2025-02-20 01:27 | disposition short-term general hospital (02) ==
PROVIDERS: Nurse Practitioner Family; Emergency Provider Emergency Medicine; PCP Internal Medicine
DX: I62.9 Nontraumatic intracranial hemorrhage, unspecified (principal); N39.0 Urinary tract infection, site not specified; R41.82 Altered mental status, unspecified; R53.83 Other fatigue; G35.D Multiple sclerosis, unspecified; K59.00 Constipation, unspecified; K21.9 Gastro-esophageal reflux disease without esophagitis; G40.909 Epilepsy, unspecified, not intractable, without status epilepticus; B19.10 Unspecified viral hepatitis B without hepatic coma; B19.20 Unspecified viral hepatitis C without hepatic coma; N31.9 Neuromuscular dysfunction of bladder, unspecified; F32.A Depression, unspecified; E78.5 Hyperlipidemia, unspecified; Z87.891 Personal history of nicotine dependence; Z74.01 Bed confinement status; Z03.818 Encounter for observation for suspected exposure to other biological agents ruled out
CPT/HCPCS: 70450; 71045; 71250; 74176; 80048; 80076; 81001; 82140; 82550; 82803; 83010; 83605; 83615; 83735; 84484; 85025; 85610; 87040; 87086; 87088; 87637; 93005; 94002; 96361; 96365; 96366; 96367; 96372; 96375; 99285; 99291; J0330; J0696; J1650; J1885; J3010; J3373; J7120

== ENCOUNTER → 2025-02-19 18:01 | Outpatient (BNV) | payer OTHER, SELFPAY | PROVIDERS: Emergency Provider Emergency Medicine; PCP Internal Medicine; Visit Provider Radiology Diagnostic Radiology | DX: A41.9 Sepsis, unspecified organism (principal); R41.82 Altered mental status, unspecified | CPT/HCPCS: 70450; 71045; 71250; 74176 ==

== ENCOUNTER → 2025-02-19 18:18 | Outpatient (BNV) | payer OTHER, SELFPAY | PROVIDERS: Emergency Provider Emergency Medicine; PCP Internal Medicine; Visit Provider Internal Medicine Cardiovascular Disease | DX: R00.0 Tachycardia, unspecified (principal) | CPT/HCPCS: 93010 ==

== ENCOUNTER → 2025-02-20 00:30 | Outpatient (BNV) | payer OTHER, SELFPAY | PROVIDERS: Emergency Provider Emergency Medicine; PCP Internal Medicine; Visit Provider Radiology Diagnostic Radiology | DX: Z46.82 Encounter for fitting and adjustment of non-vascular catheter (principal) | CPT/HCPCS: 71045 ==